=== PATIENT | female | born 1950 | race Caucasian/White ===

== ENCOUNTER 2016-11-26 18:21 | Inpatient (IN) | payer BC, MEDICAID ==
[~2016-11-26] VITALS: Ht 157.5 cm; Wt 76.2 kg
[~2016-11-26 18:21] MED LIST: AMLO10TA4 PO; DIPH50CA PO; FLUT50DI IH; HYDR-2666 PO; LOPE1LIQ7 PO
[2016-11-26 19:23] LABS: BASO % 1 % (0-3); EOS % 1 % (0-3); HEMATOCRIT 32.5 % (36.0-47.0); HEMOGLOBIN 9.9 g/dL (12.0-15.5); LYMPH % 16 % (24-48); MEAN CORPUSCULAR HEMOGLOBIN 28 pg (25-35); MEAN CORPUSCULAR HGB CONC 31 g/dL (31-37); MEAN CORPUSCULAR VOLUME 92 fL (79-100); MONO % 9 % (0-9); NEUT % 73 % (31-73); PLATELET COUNT 129 x10^3/uL (140-400); RED BLOOD COUNT 3.55 x10^6/uL (3.50-5.40); RED CELL DISTRIBUTION WIDTH 16.1 % (11.5-14.5); WHITE BLOOD COUNT 6.4 x10^3/uL (4.0-11.0)
--- NOTE | 2016-11-26 19:24 | PHYS DOC ---
Past Medical History Past Medical History: Cancer, Hypertension, Other Additional Past Medical Histor: intestinal cancer,BLOOD TRANSFUSION Past Surgical History: Appendectomy, Hysterectomy, Other Additional Past Surgical Histo: "intestines removed" Alcohol Use: Occasionally Drug Use: None Adult General Chief Complaint Chief Complaint: ALTERED MENTAL STATUS HPI HPI Patient is a 66 year old female who presents with complaint of generalized weakness. The patient was brought to the emergency department by her daughter who states that over the past week the patient has been seemingly more and more weak and fatigued. She states that starting last night the patient was displaying confusion and difficulty with memory. She brought the patient to her home last night and states that throughout the day today the patient has continued to have confusion and weakness. The patient admits that she does feel weakness but denies any other complaints at this time. Patient has history of colon cancer and has had multiple abdominal surgeries and partial colectomy for the family. Patient has not had any fevers, vomiting, and patient denies any urinary symptoms currently. Patient patient's daughter deny any focal weakness. Review of Systems Review of Systems Constitutional: Generalized weakness, denies fevers [] Eyes: Denies change in visual acuity, redness, or eye pain [] HENT: Denies nasal congestion or sore throat [] Respiratory: Denies cough or shortness of breath [] Cardiovascular: Denies chest pain or edema [] GI: Denies abdominal pain, nausea, vomiting, bloody stools or diarrhea [] : Denies dysuria or hematuria [] Musculoskeletal: Denies back pain or joint pain [] Integument: Denies rash or skin lesions [] Neurologic: Confusion, denies headache, focal weakness or sensory changes [] Current Medications Current Medications Current Medications Medications (Trade) Dose Ordered Sig/Rebecca Start Time Stop Time Status Last Admin Dose Admin Sodium Chloride (Iv Sodium Chloride 0.9% 1000ml Bag) 1,000 ml @ 100 mls/hr 1X ONCE 11/26/16 19:30 11/27/16 05:29 11/26/16 19:38 100 MLS/HR Allergies Allergies Allergies Coded Allergies Type Severity Reaction Last Updated Verified Penicillins Allergy Intermediate rash 09/05/13 Yes Physical Exam Physical Exam Constitutional: Alert, afebrile, no acute distress. [] HENT: Normocephalic, atraumatic, bilateral external ears normal, oropharynx moist, no oral exudates, nose normal. [] Eyes: PERRLA, EOMI, conjunctiva normal, no discharge. [] Neck: Normal range of motion, no tenderness, supple, no stridor. [] Cardiovascular:Heart rate regular rhythm, no murmur [] Lungs & Thorax: Bilateral breath sounds clear to auscultation [] Abdomen: Bowel sounds normal, soft, ventral incisional hernia present that is soft and reducible, no pulsatile masses. [] Skin: Warm, dry, no erythema, no rash. [] Back: No tenderness, no CVA tenderness. [] Extremities: No tenderness, no cyanosis, no clubbing, ROM intact, no edema. [] Neurologic: Alert, oriented to self, bilateral 4 out of 5 muscle strength in upper and lower extremities, normal sensory function, no focal deficits noted. [ ] Current Patient Data Vital Signs Vital Signs Date Time Temp Pulse Resp B/P Pulse Ox O2 Delivery O2 Flow Rate FiO2 11/26/16 18:35 98.1 69 20 138/68 97 Room Air 98.1 Lab Values Laboratory Tests Test 11/26/16 18:56 White Blood Count 6.4x10^3/uL (4.0-11.0) Red Blood Count 3.55x10^6/uL (3.50-5.40) Hemoglobin 9.9g/dL (12.0-15.5) L Hematocrit 32.5% (36.0-47.0) L Mean Corpuscular Volume 92fL (79-100) Mean Corpuscular Hemoglobin 28pg (25-35) Mean Corpuscular Hemoglobin Concent 31g/dL (31-37) Red Cell Distribution Width 16.1% (11.5-14.5) H Platelet Count 129x10^3/uL (140-400) L Neutrophils (%) (Auto) 73% (31-73) Lymphocytes (%) (Auto) 16% (24-48) L Monocytes (%) (Auto) 9% (0-9) Eosinophils (%) (Auto) 1% (0-3) Basophils (%) (Auto) 1% (0-3) Neutrophils # (Auto) 4.7x10^3uL (1.8-7.7) Lymphocytes # (Auto) 1.0x10^3/uL (1.0-4.8) Monocytes # (Auto) 0.6x10^3/uL (0.0-1.1) Eosinophils # (Auto) 0.1x10^3/uL (0.0-0.7) Basophils # (Auto) 0.0x10^3/uL (0.0-0.2) Sodium Level 146mmol/L (136-145) H Potassium Level 4.5mmol/L (3.5-5.1) Chloride Level 116mmol/L (98-107) H Carbon Dioxide Level 10mmol/L (21-32) *L Anion Gap 20 (6-14) H Blood Urea Nitrogen 87mg/dL (7-20) H Creatinine 4.5mg/dL (0.6-1.0) H Estimated GFR (Cockcroft-Gault) 9.7 BUN/Creatinine Ratio 19 (6-20) Glucose Level 113mg/dL (70-99) H Calcium Level 7.8mg/dL (8.5-10.1) L Magnesium Level 1.3mg/dL (1.8-2.4) L Total Bilirubin 0.2mg/dL (0.2-1.0) Aspartate Amino Transferase (AST) 12U/L (15-37) L Alanine Aminotransferase (ALT) 15U/L (14-59) Alkaline Phosphatase 129U/L (46-116) H Troponin I Quantitative < 0.017ng/mL (0.000-0.055) TZ-Die-C-Type Natriuretic Peptide 3110pg/mL (0-124) H Total Protein 7.0g/dL (6.4-8.2) Albumin 3.4g/dL (3.4-5.0) Albumin/Globulin Ratio 0.9 (1.0-1.7) L Laboratory Tests 11/26/16 18:56 Laboratory Tests 11/26/16 18:56 EKG EKG Interpreted by me: Heart rate 72, sinus rhythm, normal intervals, normal axis, no acute ST/T-wave abnormalities present [] Radiology/Procedures Radiology/Procedures One view AP chest x-ray interpreted by me: No infiltrate, no effusions, normal cardiac silhouette [] Course & Med Decision Making Course & Med Decision Making Pertinent Labs and Imaging studies reviewed. (See chart for details) Patient found to be in profound renal failure based off of her workup. This is likely contributing to the patient's generalized weakness and confusion. Patient started on IV fluids. Patient will be admitted for further treatment. I spoke with Dr. Hernandez who accepted care patient in hospital. A consult was placed to Dr. Ortiz of nephrology to follow with patient in hospital. Dragon Disclaimer Dragon Disclaimer This electronic medical record was generated, in whole or in part, using a voice recognition dictation system. Departure Departure Impression: Primary Impression: Metabolic encephalopathy Additional Impressions: Acute on chronic renal failure Normocytic anemia Hypomagnesemia Hypocalcemia Disposition: ADMITTED INPATIENT Admitting Physician: Other Condition: GUARDED Referrals: NELLI ETIENNE MD (PCP) Problem Qualifiers BRENDA HART MD Nov 26, 2016 19:23
[2016-11-26] MEDS ORDERED: IV NORMAL SALINE 1000ML BAG 1,000 ML IV ONE (19:30)
[2016-11-26 19:41] LABS: ALBUMIN 3.4 g/dL (3.4-5.0); ALBUMIN/GLOBULIN RATIO 0.9 (1.0-1.7); CALCIUM 7.8 mg/dL (8.5-10.1); CREATININE 4.5 mg/dL (0.6-1.0); GFR 9.7; MAGNESIUM 1.3 mg/dL (1.8-2.4); POTASSIUM 4.5 mmol/L (3.5-5.1); TOTAL BILIRUBIN 0.2 mg/dL (0.2-1.0)
[2016-11-26] MEDS ORDERED: ACETAMINOPHEN 325 MG TABLET. PO PRN (20:45)
[2016-11-26] MEDS ORDERED: ONDANSETRON PF 4 MG/2 ML VIAL. IV PRN (20:45)
--- NOTE | 2016-11-26 20:54 | ACF ---
Admission Forms Criteria MENTAL STATUS CHANGE Clinical Indications for Inpatient Care (Place 'X' for any and all applicable criteria): Ongoing inpatient care may be needed for 1 or more of the following(1)(2)(3)(5)( 6): [X]I. Suspected serious etiology (eg, medical disorder, HEAT TREAT PULLER event) of altered mental status [ ]II. Danger to self or others not manageable at lower level of care [ ]III. Grave disability (eg, inability to perform self care necessary at lower level of care) [ ]IV. Agitation or inappropriate behavior interfering with care for primary condition (eg, attempting to discontinue lines or drains prematurely, unable to cooperate with respiratory care) [ ]V. Delirium [A] [D][E] as described by 1 or more of the following(26): [ ]a) Delirium due to alcohol or sedative [F] withdrawal [ ]b) Delirium of uncertain etiology that has not responded to appropriate empiric treatment [ ]c) Delirium that prevents performance of a life-sustaining function (eg, feeding or hydrating oneself) [ ]. General contraindications and/or Inappropriate clinical situations for Observational Care in patients with Mental Status Change, when ANY ONE of the following is required: [ ]a) Prediction of prolongation of LOS based on ANY ONE of the following may be considered as a contraindication for observational care 2, 3, 4, 5, 6, 7, 8, 9, 10, 11 [ ]i) Age > 65 yrs. [ ]ii) Patient arriving by ambulance [ ]iii) Patient with high acuity [ ]iv) Patient requiring vital sign monitoring [ ]v) Patient on IV medication [ ]b) Systolic blood pressures greater than or equal to 180mmHg 3, 12 [ ]c) Patient with altered mental status including delirium and other alteration of consciousness, (3) [ ]d) Patient whose discharge disposition will be to a fci home or rehabilitation home should not be managed in Emergency Department Observation Unit. CMS rule requires 3 days hospital stay before such placement.3,13 [ ]e) Patient with failure to thrive due to broad array of etiologies 3,16,17 [ ]f) Inability to ambulate 3,14 Extended stay beyond goal length of stay for the primary condition may be needed until ALL of the following are present(3)(5): [ ]a) Underlying medical etiology of mental status change is absent, or has been established and adequately treated [ ]b) Danger to self or others is absent or manageable at lower level of care. [ ]c) Behavior crisis management, including physical or chemical restraints, is not required or available at lower level of car [ ]d) Substance or alcohol withdrawal is absent or manageable at lower level of care. [ ]e) Behavioral symptoms (eg, agitation, somnolence, inappropriate behavior) are absent, or are manageable at lower level of care. The original [facility] [employer] content created by [facility] [employer] has been revised. The portions of the content which have been revised are identified through the use of italic text or in bold, and [facility] has neither reviewed nor approved the modified material. All other unmodified content is copyright [facility]. Please see references footnoted in the original [facility] edition 2016 Admission Criteria Met?: Yes ZAHIRA MCMANUS Nov 26, 2016 20:54
[2016-11-26 21:41] VITALS: BP 147/61
[2016-11-26] MEDS: IV NORMAL SALINE 1000ML BAG 1,000 ML IV SCH (22:52)
[2016-11-26 22:58] VITALS: BP 126/64
[2016-11-26 23:52] LABS: BILIRUBIN,URINE NEGATIVE (NEG); GLUCOSE,URINE NEGATIVE (NEG); NITRITE,URINE NEGATIVE (NEG); PH,URINE 5.5; PROTEIN,URINE 30 mg/dL (NEG-TRACE); UROBILINOGEN,URINE 0.2 mg/dL (0.2 mg/dL)
[2016-11-26 23:58] LABS: BACTERIA,URINE MANY /HPF (0-FEW); SQUAMOUS EPITHELIAL CELL,UR FEW /LPF; WBC,URINE TNTC /HPF (0-4)
[2016-11-27 03:00] VITALS: BP 112/63
[2016-11-27 04:52] LABS: BASO % 1 % (0-3); EOS % 2 % (0-3); HEMATOCRIT 31.5 % (36.0-47.0); HEMOGLOBIN 9.7 g/dL (12.0-15.5); LYMPH # 1.2 x10^3/uL (1.0-4.8); LYMPH % 17 % (24-48); MEAN CORPUSCULAR HEMOGLOBIN 28 pg (25-35); MEAN CORPUSCULAR HGB CONC 31 g/dL (31-37); MEAN CORPUSCULAR VOLUME 91 fL (79-100); MONO % 7 % (0-9); NEUT % 74 % (31-73); PLATELET COUNT 127 x10^3/uL (140-400); RED BLOOD COUNT 3.46 x10^6/uL (3.50-5.40); RED CELL DISTRIBUTION WIDTH 15.5 % (11.5-14.5)
[2016-11-27] MEDS: IV NORMAL SALINE 1000ML BAG 1,000 ML IV SCH (04:53)
[2016-11-27 05:09] LABS: CALCIUM 7.8 mg/dL (8.5-10.1); CREATININE 4.1 mg/dL (0.6-1.0); GFR 10.9; POTASSIUM 4.1 mmol/L (3.5-5.1)
--- NOTE | 2016-11-27 06:24 | EKG ---
[facility] [address] [place] [address] Test Date: 2016-11-26 Test Time: 18:43:22 Pat Name: WILLOW HERR Department: Room: 574 1 Gender: F Lens Blocker: : 1950 Requested By: BRENDA HART Order Number: [id number] Reading MD: Kandace Camp Measurements Intervals [place] Rate: 72 P: 90 IN: 176 QRS: 8 QRSD: 90 T: 39 QT: 382 QTc: 420 Interpretive Statements SINUS RHYTHM NO SPECIFIC ECG ABNORMALITIES RI6.01 Compared to ECG 08/06/2016 16:05:22 No significant changes Electronically Signed On 12-02-2016 12:35:59 CDT by Kandace Camp
[2016-11-27] MEDS ORDERED: SODIUM BICARBONATE VIAL 100 MEQ in IV DEXTROSE 5% 1,000 ML IV SCH (06:30)
[2016-11-27] MEDS: SODIUM BICARBONATE VIAL 100 MEQ in IV DEXTROSE 5% 1,000 ML IV SCH ×3 (06:42→23:56)
[2016-11-27 07:00] VITALS: BP 117/62
--- NOTE | 2016-11-27 08:19 | RAD ---
Portable chest, 11/26/2016: History: Altered mental status, weakness Comparison is made to a study from 08/06/2016. The heart is mildly enlarged. There is calcific plaquing and tortuosity of the thoracic aorta. The pulmonary vascularity is normal. No pulmonary infiltrates are seen. There is no evidence of pleural fluid. IMPRESSION: 1. Mild cardiomegaly and aortic atherosclerosis. 2. No acute abnormality is detected.
--- NOTE | 2016-11-27 09:56 | PDOC1 ---
History and Physical Date of Admission Date of Admission DATE: 11/27/16 TIME: 09:50 Identification/Chief Complaint Chief Complaint generalized weakness Problems: Source Source: Caregiver, Chart review, Patient History of Present Illness History of Present Illness 66 y.o AA female, rather poor historian, came from own home, comes in bec of gen weakness, chronic but worse. LIves alone at home with no assistive device, labs at ER show marked ARF with crea 4 plus, DOes not see renal as OP but claims PCP (she cant recall name) follows it. Claims to feel better, uses depends at home, claims no incontinence but smells of urine in the room/bed. CLaims still good UO. Bicarb 10- on admit, started on dextrose with bicarb at 125cc/hr, bicarb 8 this morning. VS otherwise, stable, PE WNL Past Medical History Cardiovascular: HTN Past Surgical History Past Surgical History: Cholecystectomy, Hysterectomy Family History Family History: No Significant Social History Smoke: No ALCOHOL: none Drugs: None Current Problem List Problem List Problems Medical Problems: (1) Acute on chronic renal failure Status: Acute (2) Hypocalcemia Status: Acute (3) Hypomagnesemia Status: Acute (4) Metabolic encephalopathy Status: Acute (5) Normocytic anemia Status: Acute Problems: Current Medications Current Medications Current Medications Sodium Chloride (Iv Sodium Chloride 0.9% 1000ml Bag) 1,000 ml @ 100 mls/hr 1X ONCE IV Last administered on 11/26/16 19:38; Start 11/26/16 at 19:30; Stop at 05:29; Status DC Ondansetron HCl 4 mg 4 mg PRN Q8HRS PRN IV NAUSEA/VOMITING; Start 11/26/16 at 20:45; Stop 11/27/16 at 08:29; Status DC Sodium Chloride (Iv Sodium Chloride 0.9% 1000ml Bag) 1,000 ml @ 125 mls/hr Q8H IV Last administered on 11/27/16 04:53; Start 11/26/16 at 20:31; Stop at 06:39; Status DC Acetaminophen 650 mg 650 mg PRN Q4HRS PRN PO FEVER; Start 11/26/16 at 20:45; Stop 11/27/16 at 20:44 Sodium Bicarbonate 100 meq/Dextrose 1,100 ml @ 125 mls/hr Q8H48M IV Last administered on 11/27/16t 06:25; Start 11/27/16 at 06:30; Stop 11/27/16 at 06:35 ; Status DC Sodium Bicarbonate/ Dextrose 1,100 ml @ 125 mls/hr Q8H48M IV ; Start 11/27/16 at 07:00 Ondansetron HCl (Zofran) 4 mg PRN Q6HRS PRN IV NAUSEA/VOMITING; Start 11/27/16 at 08:28 Amlodipine Besylate (Norvasc) 10 mg DAILY08 PO ; Start 11/28/16 at 08:00 Fluticasone Propionate (Flonase) 2 spray DAILY NS ; Start 11/27/16 at 09:00 Loperamide HCl (Imodium) 2 mg DAILY08 PO ; Start 11/27/16 at 08:45 Active Scripts Active Reported Flovent 50MCG Diskus (Fluticasone Propionate) 50 Mcg Disk.w.dev 50 Mcg IH BID Imodium A-D (Loperamide Hcl) 1 Mg/7.5 Ml Liquid 2 Mg PO DAILY08 Norvasc (Amlodipine Besylate) 10 Mg Tablet 10 Mg PO DAILY08 Allergies Allergies: Coded Allergies: Penicillins (Verified Allergy, Intermediate, rash, 09/05/13) ROS General: YES: Fatigue, Malaise PSYCHOLOGICAL ROS: No: Anxiety, Behavioral Disorder, Concentration difficultie , Decreased libido, Depression, Disorientation, Hallucinations, Hostility, Irritablity, Memory difficulties, Mood Swings, Obsessive thoughts, Other, Physical abuse, Sexual abuse, Sleep disturbances, Suicidal ideation Eyes: No Blurry vision, No Decreased vision, No Double vision, No Dry eyes, No Excessive tearing, No Eye Pain, No Itchy Eyes, No Loss of vision, No Other, No Photophobia, No Scotomata, No Uses contacts, No Uses glasses HEENT: No: Epistaxis, Heacaches, Hearing change, Nasal congestion, Nasal discharge, Oral lesions, Other, Sinus pain, Sneezing, Snoring, Sore Throat, Tinnitus, Vertigo, Visual Changes, Vocal changes ALLERGY AND IMMUNOLOGY: No: Hives, Insect Bite Sensitivity, Itchy/Watery Eyes, Nasal Congestion, Other, Post Nasal Drip, Seasonal Allergies Hematological and Lymphatic: No: Bleeding Problems, Blood Clots, Blood Transfusions, Brusing, Night Sweats, Other, Pallor, Swollen Lymph Nodes ENDOCRINE: No: Breast Changes, Galactorrhea, Hair Pattern Changes, Hot Flashes , Malaise/lethargy, Mood Swings, Other, Palpitations, Polydipsia/polyuria, Skin Changes, Temperature Intolerance, Unexpected Weight Changes Breast: No New/Changing Breast Lumps, No Nipple changes, No Nipple discharge, No Other Respiratory: No: Cough, Hemoptysis, Orthopnea, Other, Pleuritic Pain, SOB with excertion, Shortness of breath, Sputum Changes, Stridor, Tachypnea, Wheezing Cardiovascular: No Chest Pain, No Edema, No Lt Headedness, No Orthopnea, No Other, No Palpitations, No Paroxysmal Noc. Dyspnea Gastrointestinal: No Abdominal Pain, No Constipation, No Diarrhea, No Hematochezia, No Melena, No Nausea, No Other, No Vomiting Genitourinary: YES Other (urinary incontinence) Musculoskeletal: No Gait Disturbance, No Joint Pain, No Joint Stiffness, No Joint Swelling, No Muscle Pain, No Muscular Weakness, No Other, No Pain In:, No Swelling In: Neurological: No Behavorial Changes, No Bowel/Bladder ControlChng, No Confusion , No Dizziness, No Gait Disturbance, No Headaches, No Impaired Coord/balance, No Memory Loss, No Numbness/Tingling, No Other, No Seizures, No Speech Problems , No Tremors, No Visual Changes, No Weakness Skin: No Acne, No Dry Skin, No Eczema, No Hair Changes, No Lumps, No Mole Changes, No Mottling, No Nail Changes, No Other, No Pruritus, No Rash, No Skin Lesion Changes Physical Exam General: Alert, Oriented X3, Cooperative, No acute distress HEENT: Atraumatic, PERRLA, EOMI Lungs: Clear to auscultation Heart: S1S2, RRR, no thrills, no rubs, no gallops Cardiovascular: S1, S2 Breasts: Normal, Rt breast nml w/o mass, Lt breast nml w/o mass, Nipples normal Abdomen: Normal bowel sounds, Soft, No tenderness, No hepatosplenomegaly, No masses Rectal Exam: not examined Extremities: No clubbing, No cyanosis, No edema, Normal pulses, No tenderness/ swelling Skin: No rashes, No breakdown, No significant lesion Neuro: Normal gait, Normal speech, Strength at 5/5 X4 ext, Normal tone, Sensation intact, Cranial nerves 3-12 NL, Reflexes 2+ Psych/Mental Status: Mental status NL, Mood NL Vitals Vitals Vital Signs Date Time Temp Pulse Resp B/P Pulse Ox O2 Delivery O2 Flow Rate FiO2 11/27/16 07:00 97.8 63 16 117/62 100 Room Air 97.8 Labs Labs Laboratory Tests Test 11/26/16 18:38 11/26/16 18:56 11/26/16 23:40 11/27/16 03:40 Glucose (Fingerstick) 86mg/dL (70-99) White Blood Count 6.4x10^3/uL (4.0-11.0) 7.0x10^3/uL (4.0-11.0) Red Blood Count 3.55x10^6/uL (3.50-5.40) 3.46x10^6/uL (3.50-5.40) Hemoglobin 9.9g/dL (12.0-15.5) 9.7g/dL (12.0-15.5) Hematocrit 32.5% (36.0-47.0) 31.5% (36.0-47.0) Mean Corpuscular Volume 92fL (79-100) 91fL (79-100) Mean Corpuscular Hemoglobin 28pg (25-35) 28pg (25-35) Mean Corpuscular Hemoglobin Concent 31g/dL (31-37) 31g/dL (31-37) Red Cell Distribution Width 16.1% (11.5-14.5) 15.5% (11.5-14.5) Platelet Count 129x10^3/uL (140-400) 127x10^3/uL (140-400) Neutrophils (%) (Auto) 73% (31-73) 74% (31-73) Lymphocytes (%) (Auto) 16% (24-48) 17% (24-48) Monocytes (%) (Auto) 9% (0-9) 7% (0-9) Eosinophils (%) (Auto) 1% (0-3) 2% (0-3) Basophils (%) (Auto) 1% (0-3) 1% (0-3) Neutrophils # (Auto) 4.7x10^3uL (1.8-7.7) 5.2x10^3uL (1.8-7.7) Lymphocytes # (Auto) 1.0x10^3/uL (1.0-4.8) 1.2x10^3/uL (1.0-4.8) Monocytes # (Auto) 0.6x10^3/uL (0.0-1.1) 0.5x10^3/uL (0.0-1.1) Eosinophils # (Auto) 0.1x10^3/uL (0.0-0.7) 0.1x10^3/uL (0.0-0.7) Basophils # (Auto) 0.0x10^3/uL (0.0-0.2) 0.0x10^3/uL (0.0-0.2) Sodium Level 146mmol/L (136-145) 148mmol/L (136-145) Potassium Level 4.5mmol/L (3.5-5.1) 4.1mmol/L (3.5-5.1) Chloride Level 116mmol/L (98-107) 119mmol/L (98-107) Carbon Dioxide Level 10mmol/L (21-32) 8mmol/L (21-32) Anion Gap 20 (6-14) 21 (6-14) Blood Urea Nitrogen 87mg/dL (7-20) 85mg/dL (7-20) Creatinine 4.5mg/dL (0.6-1.0) 4.1mg/dL (0.6-1.0) Estimated GFR (Cockcroft-Gault) 9.7 10.9 BUN/Creatinine Ratio 19 (6-20) Glucose Level 113mg/dL (70-99) 80mg/dL (70-99) Calcium Level 7.8mg/dL (8.5-10.1) 7.8mg/dL (8.5-10.1) Magnesium Level 1.3mg/dL (1.8-2.4) Total Bilirubin 0.2mg/dL (0.2-1.0) Aspartate Amino Transf (AST/SGOT) 12U/L (15-37) Alanine Aminotransferase (ALT/SGPT) 15U/L (14-59) Alkaline Phosphatase 129U/L (46-116) Troponin I Quantitative < 0.017ng/mL (0.000-0.055) YQ-Rsp-X-Type Natriuretic Peptide 3110pg/mL (0-124) Total Protein 7.0g/dL (6.4-8.2) Albumin 3.4g/dL (3.4-5.0) Albumin/Globulin Ratio 0.9 (1.0-1.7) Urine Collection Type Unknown Urine Color Yellow Urine Clarity Cloudy Urine pH 5.5 Urine Specific [place] 1.010 Urine Protein 30mg/dL (NEG-TRACE) Urine Glucose (UA) Negativemg/dL (NEG) Urine Ketones (Stick) Negativemg/dL (NEG) Urine Blood Large (NEG) Urine Nitrite Negative (NEG) Urine Bilirubin Negative (NEG) Urine Urobilinogen Dipstick 0.2mg/dL (0.2 mg/dL) Urine Leukocyte Esterase Large (NEG) Urine RBC 11-20/HPF (0-2) Urine WBC Tntc/HPF (0-4) Urine Squamous Epithelial Cells Few/LPF Urine Bacteria Many/HPF (0-FEW) Urine Mucus Slight/LPF Laboratory Tests Test 11/26/16 18:38 11/26/16 18:56 11/26/16 23:40 11/27/16 03:40 Glucose (Fingerstick) 86mg/dL (70-99) White Blood Count 6.4x10^3/uL (4.0-11.0) 7.0x10^3/uL (4.0-11.0) Red Blood Count 3.55x10^6/uL (3.50-5.40) 3.46x10^6/uL (3.50-5.40) Hemoglobin 9.9g/dL (12.0-15.5) 9.7g/dL (12.0-15.5) Hematocrit 32.5% (36.0-47.0) 31.5% (36.0-47.0) Mean Corpuscular Volume 92fL (79-100) 91fL (79-100) Mean Corpuscular Hemoglobin 28pg (25-35) 28pg (25-35) Mean Corpuscular Hemoglobin Concent 31g/dL (31-37) 31g/dL (31-37) Red Cell Distribution Width 16.1% (11.5-14.5) 15.5% (11.5-14.5) Platelet Count 129x10^3/uL (140-400) 127x10^3/uL (140-400) Neutrophils (%) (Auto) 73% (31-73) 74% (31-73) Lymphocytes (%) (Auto) 16% (24-48) 17% (24-48) Monocytes (%) (Auto) 9% (0-9) 7% (0-9) Eosinophils (%) (Auto) 1% (0-3) 2% (0-3) Basophils (%) (Auto) 1% (0-3) 1% (0-3) Neutrophils # (Auto) 4.7x10^3uL (1.8-7.7) 5.2x10^3uL (1.8-7.7) Lymphocytes # (Auto) 1.0x10^3/uL (1.0-4.8) 1.2x10^3/uL (1.0-4.8) Monocytes # (Auto) 0.6x10^3/uL (0.0-1.1) 0.5x10^3/uL (0.0-1.1) Eosinophils # (Auto) 0.1x10^3/uL (0.0-0.7) 0.1x10^3/uL (0.0-0.7) Basophils # (Auto) 0.0x10^3/uL (0.0-0.2) 0.0x10^3/uL (0.0-0.2) Sodium Level 146mmol/L (136-145) 148mmol/L (136-145) Potassium Level 4.5mmol/L (3.5-5.1) 4.1mmol/L (3.5-5.1) Chloride Level 116mmol/L (98-107) 119mmol/L (98-107) Carbon Dioxide Level 10mmol/L (21-32) 8mmol/L (21-32) Anion Gap 20 (6-14) 21 (6-14) Blood Urea Nitrogen 87mg/dL (7-20) 85mg/dL (7-20) Creatinine 4.5mg/dL (0.6-1.0) 4.1mg/dL (0.6-1.0) Estimated GFR (Cockcroft-Gault) 9.7 10.9 BUN/Creatinine Ratio 19 (6-20) Glucose Level 113mg/dL (70-99) 80mg/dL (70-99) Calcium Level 7.8mg/dL (8.5-10.1) 7.8mg/dL (8.5-10.1) Magnesium Level 1.3mg/dL (1.8-2.4) Total Bilirubin 0.2mg/dL (0.2-1.0) Aspartate Amino Transf (AST/SGOT) 12U/L (15-37) Alanine Aminotransferase (ALT/SGPT) 15U/L (14-59) Alkaline Phosphatase 129U/L (46-116) Troponin I Quantitative < 0.017ng/mL (0.000-0.055) ST-Epn-P-Type Natriuretic Peptide 3110pg/mL (0-124) Total Protein 7.0g/dL (6.4-8.2) Albumin 3.4g/dL (3.4-5.0) Albumin/Globulin Ratio 0.9 (1.0-1.7) Urine Collection Type Unknown Urine Color Yellow Urine Clarity Cloudy Urine pH 5.5 Urine Specific [place] 1.010 Urine Protein 30mg/dL (NEG-TRACE) Urine Glucose (UA) Negativemg/dL (NEG) Urine Ketones (Stick) Negativemg/dL (NEG) Urine Blood Large (NEG) Urine Nitrite Negative (NEG) Urine Bilirubin Negative (NEG) Urine Urobilinogen Dipstick 0.2mg/dL (0.2 mg/dL) Urine Leukocyte Esterase Large (NEG) Urine RBC 11-20/HPF (0-2) Urine WBC Tntc/HPF (0-4) Urine Squamous Epithelial Cells Few/LPF Urine Bacteria Many/HPF (0-FEW) Urine Mucus Slight/LPF VTE Prophylaxis Ordered VTE Prophylaxis Devices: Yes VTE Pharmacological Prophylaxi: Yes Assessment/Plan Assessment/Plan 1. ARF on CKD, possibly stage 4-5 based on GFR 2. ANemia of CKD 3. HTN, controlled 4. GAP metabolic acidosis 5. Urinary incontinence 6. Gen weakness sec to above PLAN: Admit tele Renal consult BIcarb gtt Renal panel daily UA reviewed, CLose I and O MIght need renal sono if not yet done recently PT/OT NO nephrotoxins Dw pt and RN at bedside RAKESH MATA MD Nov 27, 2016 09:56
[2016-11-27] MEDS: FLUTICASONE 50MCG/NASAL SPRAY 16GM BOTTLE. NS SCH (10:00)
[2016-11-27 11:00] VITALS: BP 121/66
--- NOTE | 2016-11-27 11:27 | PDOC2 ---
CONSULT Date of Consult Date of Consult DATE: 11/27/16 TIME: 11:21 Reason for Consult Reason for Consult: KEYONNA/ ? CKD III Referring Physician Referring Physician: Dr Bob Source Source: Chart review, Patient History of Present Illness Reason for Visit: as dictated Past Medical History Cardiovascular: HTN Past Surgical History Past Surgical History: Cholecystectomy, Hysterectomy Family History Family History: No Significant Social History No ALCOHOL: none Drugs: None Current Problem List Problem List Problems Medical Problems: (1) Acute on chronic renal failure Status: Acute (2) Hypocalcemia Status: Acute (3) Hypomagnesemia Status: Acute (4) Metabolic encephalopathy Status: Acute (5) Normocytic anemia Status: Acute Current Medications Current Medications Current Medications Sodium Chloride (Iv Sodium Chloride 0.9% 1000ml Bag) 1,000 ml @ 100 mls/hr 1X ONCE IV Last administered on 11/26/16 19:38; Start 11/26/16 at 19:30; Stop at 05:29; Status DC Ondansetron HCl 4 mg 4 mg PRN Q8HRS PRN IV NAUSEA/VOMITING; Start 11/26/16 at 20:45; Stop 11/27/16 at 08:29; Status DC Sodium Chloride (Iv Sodium Chloride 0.9% 1000ml Bag) 1,000 ml @ 125 mls/hr Q8H IV Last administered on 11/27/16 04:53; Start 11/26/16 at 20:31; Stop at 06:39; Status DC Acetaminophen 650 mg 650 mg PRN Q4HRS PRN PO FEVER; Start 11/26/16 at 20:45; Stop 11/27/16 at 20:44 Sodium Bicarbonate 100 meq/Dextrose 1,100 ml @ 125 mls/hr Q8H48M IV Last administered on 11/27/16 06:25; Start 11/27/16 at 06:30; Stop 11/27/16 at 06:35 ; Status DC Sodium Bicarbonate/ Dextrose 1,100 ml @ 125 mls/hr Q8H48M IV ; Start 11/27/16 at 07:00 Ondansetron HCl (Zofran) 4 mg PRN Q6HRS PRN IV NAUSEA/VOMITING; Start 11/27/16 at 08:28 Amlodipine Besylate (Norvasc) 10 mg DAILY08 PO ; Start 11/28/16 at 08:00 Fluticasone Propionate (Flonase) 2 spray DAILY NS ; Start 11/27/16 at 09:00 Loperamide HCl (Imodium) 2 mg DAILY08 PO ; Start 11/27/16 at 08:45 Active Scripts Active Reported Flovent 50MCG Diskus (Fluticasone Propionate) 50 Mcg Disk.w.dev 50 Mcg IH BID Imodium A-D (Loperamide Hcl) 1 Mg/7.5 Ml Liquid 2 Mg PO DAILY08 Norvasc (Amlodipine Besylate) 10 Mg Tablet 10 Mg PO DAILY08 Allergies Allergies: Coded Allergies: Penicillins (Verified Allergy, Intermediate, rash, 09/05/13) ROS Review of System GEN: no Fevers no Chills + Gen Weakness EYES: no new Visual Complaints ENT: no EN Drainage no Hearing deficiets CVS: no Orthopnea no CP RESP: no SOB no WILEY GI: min Nausea no Vomiting Ch Diarrhea + Abd pain : no Dysuria no Urgency Dec Uo HEME: no easy bruising no Palp Ly Nodes NEURO no Focal Weakness no Sz PSYCH: no Suicidal Ideation no Depression SKIN: no Rashes ENDO: no Polyuria or Polydipsia no Hot/Cold Intolerance MU SK: ch Arthraigia no Myalgia Physical Exam Physical Exam General Appearance: Awake Alert Oriented x 2 In no obvoius Distress Eyes: VIsion Unchanged Conjunctiva Normal EN: No EN Drainage Mucous Memb. dryish Neck: no JVD min JVP Supple no Thyromegaly CVS: S1 S2 ? Murmur No Gallop No Rub no Edema Resp: no Rales no Rhonchi no Acc. Muscle use GI: BS hypoactive NO Bruit + Tender Non Distended : no CVA tenderness; no Suprapubic Tenderness SKIN: novisible Rashes Breast Exam deferred Mu.Sk: Adequate ROM no Muscle Atrophy Heme: Unable to palpate Obvious LAD no palp Splenomegaly NEURO: Good Strength and Tone Cranial Nerves II - XII grossly intact; ? hyperesthesia overlying antoine area Psych: ? Depressed vs Ch Ill appearing; no Active hallucination Vital Signs Vital Signs Date Time Temp Pulse Resp B/P Pulse Ox O2 Delivery O2 Flow Rate FiO2 11/27/16 07:00 97.8 63 16 117/62 100 Room Air 97.8 Assessment & Plan ARF/ ? ATN: (possible etios incldue VMN, NSAIDs and ATN) R/o Obst due to stones. Dialysis as below (for WAG met acidosis) F 180 NR 3.0 Hrs 3 K 2.5 Ca 140 Na 40 HC03 Qb 350 + Qd 500+ Heparin 0 Units Uf 0 Kgs or to dry weight as tolerated May give 25-50 gms of 25% Albumin if needed to maintain Hemodynamic stability Treatment plan reviewed and discussed with seat scooper machine and daughter at bedside ? CKD III at baseline : Based on Us report and Previous Creat of 1.8-2.3 in the past (07/2016) Proteinuria - Quantitate when UA is avail Microscopic Hematuria (min RBCs) await CK, ? need for Urine Myoglobin, Has h/o stones sev WAGMet Acidosis - cehck Lactate; Ct IVF with Bicarb; HD x 1 -2 to correct ? Source Anemia: chekc [place]; may need Epogen Transfuse with next HD as needed. HTN: Current BP meds reviewed. See orders for changes. HypOcal - w/up as ordered, presumablyd ue to Low Mag Low Mag - IVF prn Mag as ordered Discussed Plan of Care and prognosis etc. at length with family. Labs Labs Laboratory Tests Test 11/26/16 18:38 11/26/16 18:56 11/26/16 23:40 11/27/16 03:40 Glucose (Fingerstick) 86mg/dL (70-99) White Blood Count 6.4x10^3/uL (4.0-11.0) 7.0x10^3/uL (4.0-11.0) Red Blood Count 3.55x10^6/uL (3.50-5.40) 3.46x10^6/uL (3.50-5.40) Hemoglobin 9.9g/dL (12.0-15.5) 9.7g/dL (12.0-15.5) Hematocrit 32.5% (36.0-47.0) 31.5% (36.0-47.0) Mean Corpuscular Volume 92fL (79-100) 91fL (79-100) Mean Corpuscular Hemoglobin 28pg (25-35) 28pg (25-35) Mean Corpuscular Hemoglobin Concent 31g/dL (31-37) 31g/dL (31-37) Red Cell Distribution Width 16.1% (11.5-14.5) 15.5% (11.5-14.5) Platelet Count 129x10^3/uL (140-400) 127x10^3/uL (140-400) Neutrophils (%) (Auto) 73% (31-73) 74% (31-73) Lymphocytes (%) (Auto) 16% (24-48) 17% (24-48) Monocytes (%) (Auto) 9% (0-9) 7% (0-9) Eosinophils (%) (Auto) 1% (0-3) 2% (0-3) Basophils (%) (Auto) 1% (0-3) 1% (0-3) Neutrophils # (Auto) 4.7x10^3uL (1.8-7.7) 5.2x10^3uL (1.8-7.7) Lymphocytes # (Auto) 1.0x10^3/uL (1.0-4.8) 1.2x10^3/uL (1.0-4.8) Monocytes # (Auto) 0.6x10^3/uL (0.0-1.1) 0.5x10^3/uL (0.0-1.1) Eosinophils # (Auto) 0.1x10^3/uL (0.0-0.7) 0.1x10^3/uL (0.0-0.7) Basophils # (Auto) 0.0x10^3/uL (0.0-0.2) 0.0x10^3/uL (0.0-0.2) Sodium Level 146mmol/L (136-145) 148mmol/L (136-145) Potassium Level 4.5mmol/L (3.5-5.1) 4.1mmol/L (3.5-5.1) Chloride Level 116mmol/L (98-107) 119mmol/L (98-107) Carbon Dioxide Level 10mmol/L (21-32) 8mmol/L (21-32) Anion Gap 20 (6-14) 21 (6-14) Blood Urea Nitrogen 87mg/dL (7-20) 85mg/dL (7-20) Creatinine 4.5mg/dL (0.6-1.0) 4.1mg/dL (0.6-1.0) Estimated GFR (Cockcroft-Gault) 9.7 10.9 BUN/Creatinine Ratio 19 (6-20) Glucose Level 113mg/dL (70-99) 80mg/dL (70-99) Calcium Level 7.8mg/dL (8.5-10.1) 7.8mg/dL (8.5-10.1) Magnesium Level 1.3mg/dL (1.8-2.4) Total Bilirubin 0.2mg/dL (0.2-1.0) Aspartate Amino Transf (AST/SGOT) 12U/L (15-37) Alanine Aminotransferase (ALT/SGPT) 15U/L (14-59) Alkaline Phosphatase 129U/L (46-116) Troponin I Quantitative < 0.017ng/mL (0.000-0.055) ZO-Eww-U-Type Natriuretic Peptide 3110pg/mL (0-124) Total Protein 7.0g/dL (6.4-8.2) Albumin 3.4g/dL (3.4-5.0) Albumin/Globulin Ratio 0.9 (1.0-1.7) Urine Collection Type Unknown Urine Color Yellow Urine Clarity Cloudy Urine pH 5.5 Urine Specific [place] 1.010 Urine Protein 30mg/dL (NEG-TRACE) Urine Glucose (UA) Negativemg/dL (NEG) Urine Ketones (Stick) Negativemg/dL (NEG) Urine Blood Large (NEG) Urine Nitrite Negative (NEG) Urine Bilirubin Negative (NEG) Urine Urobilinogen Dipstick 0.2mg/dL (0.2 mg/dL) Urine Leukocyte Esterase Large (NEG) Urine RBC 11-20/HPF (0-2) Urine WBC Tntc/HPF (0-4) Urine Squamous Epithelial Cells Few/LPF Urine Bacteria Many/HPF (0-FEW) Urine Mucus Slight/LPF Laboratory Tests Test 11/26/16 18:38 11/26/16 18:56 11/26/16 23:40 11/27/16 03:40 Glucose (Fingerstick) 86mg/dL (70-99) White Blood Count 6.4x10^3/uL (4.0-11.0) 7.0x10^3/uL (4.0-11.0) Red Blood Count 3.55x10^6/uL (3.50-5.40) 3.46x10^6/uL (3.50-5.40) Hemoglobin 9.9g/dL (12.0-15.5) 9.7g/dL (12.0-15.5) Hematocrit 32.5% (36.0-47.0) 31.5% (36.0-47.0) Mean Corpuscular Volume 92fL (79-100) 91fL (79-100) Mean Corpuscular Hemoglobin 28pg (25-35) 28pg (25-35) Mean Corpuscular Hemoglobin Concent 31g/dL (31-37) 31g/dL (31-37) Red Cell Distribution Width 16.1% (11.5-14.5) 15.5% (11.5-14.5) Platelet Count 129x10^3/uL (140-400) 127x10^3/uL (140-400) Neutrophils (%) (Auto) 73% (31-73) 74% (31-73) Lymphocytes (%) (Auto) 16% (24-48) 17% (24-48) Monocytes (%) (Auto) 9% (0-9) 7% (0-9) Eosinophils (%) (Auto) 1% (0-3) 2% (0-3) Basophils (%) (Auto) 1% (0-3) 1% (0-3) Neutrophils # (Auto) 4.7x10^3uL (1.8-7.7) 5.2x10^3uL (1.8-7.7) Lymphocytes # (Auto) 1.0x10^3/uL (1.0-4.8) 1.2x10^3/uL (1.0-4.8) Monocytes # (Auto) 0.6x10^3/uL (0.0-1.1) 0.5x10^3/uL (0.0-1.1) Eosinophils # (Auto) 0.1x10^3/uL (0.0-0.7) 0.1x10^3/uL (0.0-0.7) Basophils # (Auto) 0.0x10^3/uL (0.0-0.2) 0.0x10^3/uL (0.0-0.2) Sodium Level 146mmol/L (136-145) 148mmol/L (136-145) Potassium Level 4.5mmol/L (3.5-5.1) 4.1mmol/L (3.5-5.1) Chloride Level 116mmol/L (98-107) 119mmol/L (98-107) Carbon Dioxide Level 10mmol/L (21-32) 8mmol/L (21-32) Anion Gap 20 (6-14) 21 (6-14) Blood Urea Nitrogen 87mg/dL (7-20) 85mg/dL (7-20) Creatinine 4.5mg/dL (0.6-1.0) 4.1mg/dL (0.6-1.0) Estimated GFR (Cockcroft-Gault) 9.7 10.9 BUN/Creatinine Ratio 19 (6-20) Glucose Level 113mg/dL (70-99) 80mg/dL (70-99) Calcium Level 7.8mg/dL (8.5-10.1) 7.8mg/dL (8.5-10.1) Magnesium Level 1.3mg/dL (1.8-2.4) Total Bilirubin 0.2mg/dL (0.2-1.0) Aspartate Amino Transf (AST/SGOT) 12U/L (15-37) Alanine Aminotransferase (ALT/SGPT) 15U/L (14-59) Alkaline Phosphatase 129U/L (46-116) Troponin I Quantitative < 0.017ng/mL (0.000-0.055) GI-Fem-D-Type Natriuretic Peptide 3110pg/mL (0-124) Total Protein 7.0g/dL (6.4-8.2) Albumin 3.4g/dL (3.4-5.0) Albumin/Globulin Ratio 0.9 (1.0-1.7) Urine Collection Type Unknown Urine Color Yellow Urine Clarity Cloudy Urine pH 5.5 Urine Specific [place] 1.010 Urine Protein 30mg/dL (NEG-TRACE) Urine Glucose (UA) Negativemg/dL (NEG) Urine Ketones (Stick) Negativemg/dL (NEG) Urine Blood Large (NEG) Urine Nitrite Negative (NEG) Urine Bilirubin Negative (NEG) Urine Urobilinogen Dipstick 0.2mg/dL (0.2 mg/dL) Urine Leukocyte Esterase Large (NEG) Urine RBC 11-20/HPF (0-2) Urine WBC Tntc/HPF (0-4) Urine Squamous Epithelial Cells Few/LPF Urine Bacteria Many/HPF (0-FEW) Urine Mucus Slight/LPF Images Images CXR: IMPRESSION: 1. Mild cardiomegaly and aortic atherosclerosis. 2. No acute abnormality is detected. Abdominal ultrasound, 08/08/2016: History: Pancytopenia The gallbladder is surgically absent. There is no evidence of a hepatic mass or bile duct dilatation. The visualized portions of the pancreas are unremarkable. The spleen measures 9.4 cm in length. The kidneys demonstrate mild cortical scarring. There is no evidence of obstruction or a mass. The abdominal aorta and inferior vena cava are of normal caliber. No free fluid is evident in the abdomen. RUTH MONTANO MD Nov 27, 2016 11:27
[2016-11-27] MEDS ORDERED: MAGNESIUM SULFATE 2GM 50 ML IV PRN (11:30)
[2016-11-27] MEDS: LOPERAMIDE 2 MG CAPSULE PO SCH (12:02)
--- NOTE | 2016-11-27 12:28 | RAD ---
Indication acute renal failure superimposed on chronic disease. Grayscale imaging targeted to the kidneys was performed. Note is made of a previous examination 06/06/2008. The right kidney measures 10.6 x 4.1 x 3.2 cm. No hydronephrosis or discrete mass is seen. The left kidney measures 10.7 x 5.1 x 4.8 cm and also shows no evidence of hydronephrosis or mass. Both kidneys are somewhat echogenic suggesting medical renal disease. The urinary bladder appeared grossly normal. IMPRESSION: No evidence of hydronephrosis or mass seen associated with either kidney
[2016-11-27] MEDS ORDERED: IOHEXOL 240 MG/ML 50ML VIAL. PO ONE (13:00)
[2016-11-27 13:21] LABS: % SAT IRON 24 % (15-34); IRON,SERUM 47 ug/dL (50-170)
[2016-11-27 13:36] LABS: ALBUMIN 3.6 g/dL (3.4-5.0); URIC ACID 7.8 mg/dL (2.6-6.0)
[2016-11-27 15:00] VITALS: BP 142/70
[2016-11-27] MEDS ORDERED: LIDOCAINE 1% / SOD BICARB 8.4% 20 ML VIAL. IJ ONE (15:30)
[2016-11-27] MEDS ORDERED: HEPARIN for IV BOLUS 10,000 UNIT/10 ML VIAL. ONE (15:58)
--- NOTE | 2016-11-27 16:32 | RAD ---
Indication abdominal pain. History of stones. Axial images through the abdomen and pelvis were obtained. Oral contrast was administered. IV contrast was not. No recent CT imaging of the abdomen or pelvis is available. Note is made of a prior examination 03/31/2008. The lung bases are unremarkable. There is marked diastases of the rectus muscle or there is a ventral abdominal wall hernia. It appears uncomplicated. A focal mass in the liver or spleen is not seen. Clips are noted in the gallbladder fossa. No pancreatic abnormality is seen. No adrenal or significant renal anomalies are seen. No renal calculi are seen on either side. There is no hydronephrosis hydroureter or definite calcification seen along the course of either ureter. Vascular calcification is noted. Occasional calcifications are seen in the pelvis compatible with phleboliths. An acute finding in the abdomen or pelvis is not seen. Significant degenerative changes are seen about the right SI joint. There are slight dilatation of small bowel loops which is nonspecific IMPRESSION: No acute finding seen in the abdomen or pelvis. Slight dilatation of small bowel loops is noted which is nonspecific
--- NOTE | 2016-11-27 16:39 | PDOC ---
Exam Cashier Host/Hostess Cashier Host/Hostess Ruchi Tack Picker Tack Picker Miguel A Sahu Pre-Procedure Diagnosis Pre-Procedure Diagnosis 66 YO female with KEYONNA on CKD, with metabolic acidosis, proteinuria., and micro- hematuria. Needs HD---temp HDC requested by Renal. Post-Procedure Diagnosis Post-Procedure Diagnosis Same Procedure Performed Procedure Performed Sono/fluoro guided temp HDC insertion. Type of Anesthesia Type of Anesthesia Local only Estimated Blood Loss EBL: Minimal Drain/Tubes Drains/Tubes Rt IJ 14F 15cm Schon temp HDC Condition of Patient Condition of Patient Stable. No apparent complication. Disposition Disposition From IR return to 574. OK to use temp HDC. F/u with Renal. Full report to follow. EZEKIEL BONILLA MD Nov 27, 2016 16:39
[2016-11-27] MEDS ORDERED: IV NORMAL SALINE 1000ML BAG 1,000 ML IV PRN (17:38)
[2016-11-27] MEDS ORDERED: DIALYSIS PATIENT. MC PRN (17:45)
[2016-11-27] MEDS ORDERED: ALBUMIN HUMAN 25% 200 ML IV PRN (17:45)
[2016-11-27 22:32] VITALS: BP 142/71
--- NOTE | 2016-11-27 23:18 | CONS ---
DATE OF CONSULTATION: PRIMARY PHYSICIAN: Dr. Bob. REASON FOR CONSULTATION: Acute renal failure with suspected underlying chronic renal insufficiency. HISTORY OF PRESENT ILLNESS: The patient is a 66-year-old -[place] female followed by the primary care physician. She has not seen a store leader in the past. She was extremely weak at home ____ two of her daughters to lift her up out of bed. She had significant generalized weakness. She is otherwise known to ambulate to the bathroom by herself due to off and on issues with diarrhea; however, when the daughter saw her, she was too weak to get out of bed. She was extremely fatigued. She was showing signs of confusion and difficulty with memory. She has not been urinating much. She has been taking ibuprofen in recent past. She has not had history of colon cancer, multiple abdominal surgeries, kidney stones, partial colectomy, and chronic diarrhea from there. She does have some abdominal pain. She also has a possible ventral incisional hernia. On presentation, her BUN was 87 and a creatinine of 4.5, bicarbonate of 10 and she was given IV fluids with bicarbonate and her bicarbonate is now 8 with a gap of 21. Lactate is not available. Magnesium was 1.3, calcium is also low at 7.8. In this setting, we were asked to see her for further evaluation. Urine output is minimum. Sodium is 148. PAST MEDICAL HISTORY: Extensive; however, her daughter and the patient are both not great historians. She is known to have heart murmur since her childhood. She has hypertension, asthma, sleep apnea, but does not use CPAP, hiatal hernia, abdominal hernia repair with bowel resection and colon cancer, status post partial colectomy, cholecystectomy, exogenous obesity, chronic diarrhea, GERD, cervical cancer status post hysterectomy, kidney stones status post surgery for the same including lithotripsy, cystoscopy, previous UTIs, chronic arthritis, right radial fracture and alcohol use in the past. SOCIAL HISTORY: Lives by herself. Occasional alcohol use. No current tobacco use. FAMILY HISTORY: Positive for kidney problems in the family. She cannot elaborate much on the same. For rest of details, see electronic records. RUTH MONTANO MD DR: ALY/lacey JOB#: [id number] / [id number]
[2016-11-28 01:14] LABS: HEP B SURFACE ABDY Non Reactive (.)
[2016-11-28 02:12] LABS: HEP B SURFACE ABDY Non Reactive (.)
[2016-11-28 03:00] VITALS: BP 111/59
[2016-11-28 06:21] LABS: MAGNESIUM 1.1 mg/dL (1.8-2.4); PHOSPHORUS 2.6 mg/dL (2.6-4.7)
[2016-11-28 06:22] LABS: ALBUMIN 2.7 g/dL (3.4-5.0); CALCIUM 6.8 mg/dL (8.5-10.1); GFR 24.9; PHOSPHORUS 2.4 mg/dL (2.6-4.7)
[2016-11-28 06:26] LABS: POTASSIUM 2.6 mmol/L (3.5-5.1)
[2016-11-28 07:00] VITALS: BP 99/57
[2016-11-28] MEDS ORDERED: POTASSIUM CHLORIDE 20 MEQ TABLET.ER. PO ONE (07:00)
--- NOTE | 2016-11-28 07:35 | RAD ---
Ultrasound and fluoro guided right IJ temporary hemodialysis catheter Indication: 66-year-old female with acute kidney injury on chronic kidney disease. Proteinuria. Hematuria. Metabolic acidosis. Temporary dialysis catheter insertion requested by renal. Fluoro time: 0.3 minutes Kerma-Area Product: 0.3 Gycm2 Anesthesia: Local only Sterility: All elements of maximal sterile barrier technique, including the use of a cap, mask, sterile gown, sterile gloves, large sterile sheet, appropriate hand hygiene, and 2% chlorhexidine for cutaneous antisepsis (or acceptable alternative antiseptic per current guidelines) were utilized. Procedure: Informed consent was obtained from the patient. She was placed supine on the angiography table. Preliminary ultrasound examination of right neck revealed patency of right internal jugular vein, which was documented with a single hard copy ultrasound image. Right neck was then prepped and draped in the usual sterile fashion, utilizing all elements of maximal sterile barrier technique, as described above. Using aseptic technique, local anesthesia, direct ultrasound guidance, and the micropuncture system, successful percutaneous entry was achieved into right internal jugular vein. The right IJ venostomy tract was then dilated and a 14 [place] 15 cm Schon temporary hemodialysis catheter was easily advanced centrally over an angiographic guidewire, and was positioned with its tip at the level of cavoatrial junction utilizing fluoroscopic guidance. This catheter was documented to flush and aspirate normally, was packed, and was secured at the right neck exit site utilizing suture and sterile dressing. Patient tolerated the procedure well without apparent complication. Satisfactory position of the dialysis catheter was confirmed with a single fluoroscopic spot image. Impression: Successful, uneventful ultrasound and fluoro guided placement of right IJ 14 Romanian 15 cm Schon temporary hemodialysis catheter, as described.
[2016-11-28] MEDS ORDERED: IV NORMAL SALINE 1000ML BAG 1,000 ML IV PRN ×2 (08:28)
[2016-11-28] MEDS ORDERED: DIALYSIS PATIENT. MC PRN (08:30)
[2016-11-28] MEDS ORDERED: ACETAMINOPHEN 500 MG TABLET PO PRN (08:30)
[2016-11-28] MEDS ORDERED: ALBUMIN HUMAN 25% 200 ML IV PRN (08:30)
[2016-11-28] MEDS ORDERED: diphenhydrAMINE 50 MG/ML VIAL IV PRN ×2 (08:30)
[2016-11-28] MEDS: ONDANSETRON PF 4 MG/2 ML VIAL. IV PRN ×2 (08:36→15:56)
--- NOTE | 2016-11-28 08:56 | PDOC ---
Dialysis Progress Note Dialysis Note Dialysis Note Seen on Hemodialysis, tolerating treatment Okay so far Vitals on Hemodialysis: 108/62 60 afeb General Appearance: Awake: Alert Oriented x 3 Neck: No JVD or JVP Chest: CTA [place] Heart: S1 S2 Abdomen - Soft ND Min TTP Extremities - No Edema ARF: Dialysis as below F 180 NR 3.0 Hrs 4 K 3.5 Ca 140 Na 30 HC03 Qb 350 + Qd 500+ Heparin 0 Units Uf 0 Kgs or to dry weight as tolerated May give 25-50 gms of 25% Albumin if needed to maintain Hemodynamic stability Treatment plan reviewed and discussed with senior hydrogeologist Elsye Arnav blue and PHos. Watch off of HD for next 2 days and watch UO and trend Creat. Will need more accurate UO monitoring. May need Harris Vitals Vital Signs Vital Signs Date Time Temp Pulse Resp B/P Pulse Ox O2 Delivery O2 Flow Rate FiO2 11/28/16 07:00 99.9 71 18 99/57 97 Room Air 99.9 Labs Last Labs Laboratory Tests Test 11/26/16 18:38 11/26/16 18:56 11/26/16 23:40 11/27/16 03:40 Glucose (Fingerstick) 86mg/dL (70-99) White Blood Count 6.4x10^3/uL (4.0-11.0) 7.0x10^3/uL (4.0-11.0) Red Blood Count 3.55x10^6/uL (3.50-5.40) 3.46x10^6/uL (3.50-5.40) Hemoglobin 9.9g/dL (12.0-15.5) 9.7g/dL (12.0-15.5) Hematocrit 32.5% (36.0-47.0) 31.5% (36.0-47.0) Mean Corpuscular Volume 92fL (79-100) 91fL (79-100) Mean Corpuscular Hemoglobin 28pg (25-35) 28pg (25-35) Mean Corpuscular Hemoglobin Concent 31g/dL (31-37) 31g/dL (31-37) Red Cell Distribution Width 16.1% (11.5-14.5) 15.5% (11.5-14.5) Platelet Count 129x10^3/uL (140-400) 127x10^3/uL (140-400) Neutrophils (%) (Auto) 73% (31-73) 74% (31-73) Lymphocytes (%) (Auto) 16% (24-48) 17% (24-48) Monocytes (%) (Auto) 9% (0-9) 7% (0-9) Eosinophils (%) (Auto) 1% (0-3) 2% (0-3) Basophils (%) (Auto) 1% (0-3) 1% (0-3) Neutrophils # (Auto) 4.7x10^3uL (1.8-7.7) 5.2x10^3uL (1.8-7.7) Lymphocytes # (Auto) 1.0x10^3/uL (1.0-4.8) 1.2x10^3/uL (1.0-4.8) Monocytes # (Auto) 0.6x10^3/uL (0.0-1.1) 0.5x10^3/uL (0.0-1.1) Eosinophils # (Auto) 0.1x10^3/uL (0.0-0.7) 0.1x10^3/uL (0.0-0.7) Basophils # (Auto) 0.0x10^3/uL (0.0-0.2) 0.0x10^3/uL (0.0-0.2) Sodium Level 146mmol/L (136-145) 148mmol/L (136-145) Potassium Level 4.5mmol/L (3.5-5.1) 4.1mmol/L (3.5-5.1) Chloride Level 116mmol/L (98-107) 119mmol/L (98-107) Carbon Dioxide Level 10mmol/L (21-32) 8mmol/L (21-32) Anion Gap 20 (6-14) 21 (6-14) Blood Urea Nitrogen 87mg/dL (7-20) 85mg/dL (7-20) Creatinine 4.5mg/dL (0.6-1.0) 4.1mg/dL (0.6-1.0) Estimated GFR (Cockcroft-Gault) 9.7 10.9 BUN/Creatinine Ratio 19 (6-20) Glucose Level 113mg/dL (70-99) 80mg/dL (70-99) Calcium Level 7.8mg/dL (8.5-10.1) 7.8mg/dL (8.5-10.1) Magnesium Level 1.3mg/dL (1.8-2.4) 1.3mg/dL (1.8-2.4) Total Bilirubin 0.2mg/dL (0.2-1.0) Aspartate Amino Transf (AST/SGOT) 12U/L (15-37) Alanine Aminotransferase (ALT/SGPT) 15U/L (14-59) Alkaline Phosphatase 129U/L (46-116) Troponin I Quantitative < 0.017ng/mL (0.000-0.055) MF-Lvq-H-Type Natriuretic Peptide 3110pg/mL (0-124) Total Protein 7.0g/dL (6.4-8.2) Albumin 3.4g/dL (3.4-5.0) Albumin/Globulin Ratio 0.9 (1.0-1.7) Urine Collection Type Unknown Urine Color Yellow Urine Clarity Cloudy Urine pH 5.5 Urine Specific [place] 1.010 Urine Protein 30mg/dL (NEG-TRACE) Urine Glucose (UA) Negativemg/dL (NEG) Urine Ketones (Stick) Negativemg/dL (NEG) Urine Blood Large (NEG) Urine Nitrite Negative (NEG) Urine Bilirubin Negative (NEG) Urine Urobilinogen Dipstick 0.2mg/dL (0.2 mg/dL) Urine Leukocyte Esterase Large (NEG) Urine RBC 11-20/HPF (0-2) Urine WBC Tntc/HPF (0-4) Urine Squamous Epithelial Cells Few/LPF Urine Bacteria Many/HPF (0-FEW) Urine Mucus Slight/LPF Test 11/27/16 12:10 11/27/16 12:50 11/28/16 05:24 Uric Acid 7.8mg/dL (2.6-6.0) Ferritin 535ng/mL (8-252) Creatine Kinase 40U/L (26-192) Albumin 3.6g/dL (3.4-5.0) 2.7g/dL (3.4-5.0) Reticulocyte Count (auto) 0.7% (0.5-2.5) Lactic Acid Level 1.0mmol/L (0.4-2.0) Iron Level 47ug/dL (50-170) Total Iron Binding Capacity 195ug/dL (250-450) Iron Saturation 24% (15-34) 25-Hydroxy Vitamin D Total 29.5ng/mL (30.0-100.0) Hepatitis B Surface Antigen Negative (Negative) Hepatitis B Surface Antibody Non reactive (.) Hepatitis B Core Total Antibody Negative (Negative) Hemoglobin 8.4g/dL (12.0-15.5) Sodium Level 143mmol/L (136-145) Potassium Level 2.6mmol/L (3.5-5.1) Chloride Level 105mmol/L (98-107) Carbon Dioxide Level 30mmol/L (21-32) Anion Gap 8 (6-14) Blood Urea Nitrogen 27mg/dL (7-20) Creatinine 2.0mg/dL (0.6-1.0) Estimated GFR (Cockcroft-Gault) 24.9 Glucose Level 96mg/dL (70-99) Calcium Level 6.8mg/dL (8.5-10.1) Phosphorus Level 2.4mg/dL (2.6-4.7) Magnesium Level 1.1mg/dL (1.8-2.4) Laboratory Tests Test 11/27/16 12:10 11/27/16 12:50 11/28/16 05:24 Uric Acid 7.8mg/dL (2.6-6.0) Ferritin 535ng/mL (8-252) Creatine Kinase 40U/L (26-192) Albumin 3.6g/dL (3.4-5.0) 2.7g/dL (3.4-5.0) Reticulocyte Count (auto) 0.7% (0.5-2.5) Lactic Acid Level 1.0mmol/L (0.4-2.0) Iron Level 47ug/dL (50-170) Total Iron Binding Capacity 195ug/dL (250-450) Iron Saturation 24% (15-34) 25-Hydroxy Vitamin D Total 29.5ng/mL (30.0-100.0) Hepatitis B Surface Antigen Negative (Negative) Hepatitis B Surface Antibody Non reactive (.) Hepatitis B Core Total Antibody Negative (Negative) Hemoglobin 8.4g/dL (12.0-15.5) Sodium Level 143mmol/L (136-145) Potassium Level 2.6mmol/L (3.5-5.1) Chloride Level 105mmol/L (98-107) Carbon Dioxide Level 30mmol/L (21-32) Anion Gap 8 (6-14) Blood Urea Nitrogen 27mg/dL (7-20) Creatinine 2.0mg/dL (0.6-1.0) Estimated GFR (Cockcroft-Gault) 24.9 Glucose Level 96mg/dL (70-99) Calcium Level 6.8mg/dL (8.5-10.1) Phosphorus Level 2.4mg/dL (2.6-4.7) Magnesium Level 1.1mg/dL (1.8-2.4) Assessment Assessment Problems Medical Problems: (1) Acute on chronic renal failure Status: Acute (2) Hypocalcemia Status: Acute (3) Hypomagnesemia Status: Acute (4) Metabolic encephalopathy Status: Acute (5) Normocytic anemia Status: Acute Problems: Plan Plan of Care Problems Medical Problems: (1) Acute on chronic renal failure Status: Acute (2) Hypocalcemia Status: Acute (3) Hypomagnesemia Status: Acute (4) Metabolic encephalopathy Status: Acute (5) Normocytic anemia Status: Acute RUTH MONTANO MD Nov 28, 2016 08:56
[2016-11-28] MEDS: SODIUM BICARBONATE VIAL 100 MEQ in IV DEXTROSE 5% 1,000 ML IV SCH ×2 (09:24→18:12)
[2016-11-28] MEDS ORDERED: MAGNESIUM SULFATE 2GM 50 ML IV ONE (09:30)
--- NOTE | 2016-11-28 11:08 | PDOC ---
PROGRESS NOTES Chief Complaint Chief Complaint 1. ARF on CKD, possibly stage 4-5 based on GFR 2. NEW HD (11/28/16) 3. ANemia of CKD 3. HTN, controlled 4. GAP metabolic acidosis 5. Urinary incontinence 6. Gen weakness sec to above History of Present Illness History of Present Illness HAd HD cath insertion yesterday Now undergoing session HD Tolerating well Some generalized weakness Crea down to 2 from 4 on admission K 2.6 - replaced by renal already PLAN: CPM Renal panel daily PT/OT - might need SNU or rehab Vitals Vitals Vital Signs Date Time Temp Pulse Resp B/P Pulse Ox O2 Delivery O2 Flow Rate FiO2 11/28/16 09:00 Room Air 11/28/16 07:00 99.9 71 18 99/57 97 99.9 Physical Exam General: Alert, Oriented X3, Cooperative, No acute distress Lungs: Clear Abdomen: Normal bowel sounds, Soft, No tenderness, No hepatosplenomegaly, No masses Extremities: No clubbing, No cyanosis, No edema, Normal pulses, No tenderness/ swelling Skin: No rashes, No breakdown, No significant lesion Labs LABS Laboratory Tests Test 11/27/16 12:10 11/27/16 12:50 11/28/16 05:24 Uric Acid 7.8mg/dL (2.6-6.0) Ferritin 535ng/mL (8-252) Creatine Kinase 40U/L (26-192) Albumin 3.6g/dL (3.4-5.0) 2.7g/dL (3.4-5.0) Reticulocyte Count (auto) 0.7% (0.5-2.5) Lactic Acid Level 1.0mmol/L (0.4-2.0) Iron Level 47ug/dL (50-170) Total Iron Binding Capacity 195ug/dL (250-450) Iron Saturation 24% (15-34) 25-Hydroxy Vitamin D Total 29.5ng/mL (30.0-100.0) Hepatitis B Surface Antigen Negative (Negative) Hepatitis B Surface Antibody Non reactive (.) Hepatitis B Core Total Antibody Negative (Negative) Hemoglobin 8.4g/dL (12.0-15.5) Sodium Level 143mmol/L (136-145) Potassium Level 2.6mmol/L (3.5-5.1) Chloride Level 105mmol/L (98-107) Carbon Dioxide Level 30mmol/L (21-32) Anion Gap 8 (6-14) Blood Urea Nitrogen 27mg/dL (7-20) Creatinine 2.0mg/dL (0.6-1.0) Estimated GFR (Cockcroft-Gault) 24.9 Glucose Level 96mg/dL (70-99) Calcium Level 6.8mg/dL (8.5-10.1) Phosphorus Level 2.4mg/dL (2.6-4.7) Magnesium Level 1.1mg/dL (1.8-2.4) Review of Systems Review of Systems no n/v/emesis, diarrhea Assessment and Plan Assessmemt and Plan Problems Medical Problems: (1) Acute on chronic renal failure Status: Acute (2) Hypocalcemia Status: Acute (3) Hypomagnesemia Status: Acute (4) Metabolic encephalopathy Status: Acute (5) Normocytic anemia Status: Acute Problems: Comment Review of Relevant I have reviewed the following items yoel (where applicable) has been applied. Labs Laboratory Tests Test 11/26/16 18:38 11/26/16 18:56 11/26/16 23:40 11/27/16 03:40 Glucose (Fingerstick) 86mg/dL (70-99) White Blood Count 6.4x10^3/uL (4.0-11.0) 7.0x10^3/uL (4.0-11.0) Red Blood Count 3.55x10^6/uL (3.50-5.40) 3.46x10^6/uL (3.50-5.40) Hemoglobin 9.9g/dL (12.0-15.5) 9.7g/dL (12.0-15.5) Hematocrit 32.5% (36.0-47.0) 31.5% (36.0-47.0) Mean Corpuscular Volume 92fL (79-100) 91fL (79-100) Mean Corpuscular Hemoglobin 28pg (25-35) 28pg (25-35) Mean Corpuscular Hemoglobin Concent 31g/dL (31-37) 31g/dL (31-37) Red Cell Distribution Width 16.1% (11.5-14.5) 15.5% (11.5-14.5) Platelet Count 129x10^3/uL (140-400) 127x10^3/uL (140-400) Neutrophils (%) (Auto) 73% (31-73) 74% (31-73) Lymphocytes (%) (Auto) 16% (24-48) 17% (24-48) Monocytes (%) (Auto) 9% (0-9) 7% (0-9) Eosinophils (%) (Auto) 1% (0-3) 2% (0-3) Basophils (%) (Auto) 1% (0-3) 1% (0-3) Neutrophils # (Auto) 4.7x10^3uL (1.8-7.7) 5.2x10^3uL (1.8-7.7) Lymphocytes # (Auto) 1.0x10^3/uL (1.0-4.8) 1.2x10^3/uL (1.0-4.8) Monocytes # (Auto) 0.6x10^3/uL (0.0-1.1) 0.5x10^3/uL (0.0-1.1) Eosinophils # (Auto) 0.1x10^3/uL (0.0-0.7) 0.1x10^3/uL (0.0-0.7) Basophils # (Auto) 0.0x10^3/uL (0.0-0.2) 0.0x10^3/uL (0.0-0.2) Sodium Level 146mmol/L (136-145) 148mmol/L (136-145) Potassium Level 4.5mmol/L (3.5-5.1) 4.1mmol/L (3.5-5.1) Chloride Level 116mmol/L (98-107) 119mmol/L (98-107) Carbon Dioxide Level 10mmol/L (21-32) 8mmol/L (21-32) Anion Gap 20 (6-14) 21 (6-14) Blood Urea Nitrogen 87mg/dL (7-20) 85mg/dL (7-20) Creatinine 4.5mg/dL (0.6-1.0) 4.1mg/dL (0.6-1.0) Estimated GFR (Cockcroft-Gault) 9.7 10.9 BUN/Creatinine Ratio 19 (6-20) Glucose Level 113mg/dL (70-99) 80mg/dL (70-99) Calcium Level 7.8mg/dL (8.5-10.1) 7.8mg/dL (8.5-10.1) Magnesium Level 1.3mg/dL (1.8-2.4) 1.3mg/dL (1.8-2.4) Total Bilirubin 0.2mg/dL (0.2-1.0) Aspartate Amino Transf (AST/SGOT) 12U/L (15-37) Alanine Aminotransferase (ALT/SGPT) 15U/L (14-59) Alkaline Phosphatase 129U/L (46-116) Troponin I Quantitative < 0.017ng/mL (0.000-0.055) EK-Qcn-O-Type Natriuretic Peptide 3110pg/mL (0-124) Total Protein 7.0g/dL (6.4-8.2) Albumin 3.4g/dL (3.4-5.0) Albumin/Globulin Ratio 0.9 (1.0-1.7) Urine Collection Type Unknown Urine Color Yellow Urine Clarity Cloudy Urine pH 5.5 Urine Specific [place] 1.010 Urine Protein 30mg/dL (NEG-TRACE) Urine Glucose (UA) Negativemg/dL (NEG) Urine Ketones (Stick) Negativemg/dL (NEG) Urine Blood Large (NEG) Urine Nitrite Negative (NEG) Urine Bilirubin Negative (NEG) Urine Urobilinogen Dipstick 0.2mg/dL (0.2 mg/dL) Urine Leukocyte Esterase Large (NEG) Urine RBC 11-20/HPF (0-2) Urine WBC Tntc/HPF (0-4) Urine Squamous Epithelial Cells Few/LPF Urine Bacteria Many/HPF (0-FEW) Urine Mucus Slight/LPF Test 11/27/16 12:10 11/27/16 12:50 11/28/16 05:24 Uric Acid 7.8mg/dL (2.6-6.0) Ferritin 535ng/mL (8-252) Creatine Kinase 40U/L (26-192) Albumin 3.6g/dL (3.4-5.0) 2.7g/dL (3.4-5.0) Reticulocyte Count (auto) 0.7% (0.5-2.5) Lactic Acid Level 1.0mmol/L (0.4-2.0) Iron Level 47ug/dL (50-170) Total Iron Binding Capacity 195ug/dL (250-450) Iron Saturation 24% (15-34) 25-Hydroxy Vitamin D Total 29.5ng/mL (30.0-100.0) Hepatitis B Surface Antigen Negative (Negative) Hepatitis B Surface Antibody Non reactive (.) Hepatitis B Core Total Antibody Negative (Negative) Hemoglobin 8.4g/dL (12.0-15.5) Sodium Level 143mmol/L (136-145) Potassium Level 2.6mmol/L (3.5-5.1) Chloride Level 105mmol/L (98-107) Carbon Dioxide Level 30mmol/L (21-32) Anion Gap 8 (6-14) Blood Urea Nitrogen 27mg/dL (7-20) Creatinine 2.0mg/dL (0.6-1.0) Estimated GFR (Cockcroft-Gault) 24.9 Glucose Level 96mg/dL (70-99) Calcium Level 6.8mg/dL (8.5-10.1) Phosphorus Level 2.4mg/dL (2.6-4.7) Magnesium Level 1.1mg/dL (1.8-2.4) Laboratory Tests Test 11/27/16 12:10 11/27/16 12:50 11/28/16 05:24 Uric Acid 7.8mg/dL (2.6-6.0) Ferritin 535ng/mL (8-252) Creatine Kinase 40U/L (26-192) Albumin 3.6g/dL (3.4-5.0) 2.7g/dL (3.4-5.0) Reticulocyte Count (auto) 0.7% (0.5-2.5) Lactic Acid Level 1.0mmol/L (0.4-2.0) Iron Level 47ug/dL (50-170) Total Iron Binding Capacity 195ug/dL (250-450) Iron Saturation 24% (15-34) 25-Hydroxy Vitamin D Total 29.5ng/mL (30.0-100.0) Hepatitis B Surface Antigen Negative (Negative) Hepatitis B Surface Antibody Non reactive (.) Hepatitis B Core Total Antibody Negative (Negative) Hemoglobin 8.4g/dL (12.0-15.5) Sodium Level 143mmol/L (136-145) Potassium Level 2.6mmol/L (3.5-5.1) Chloride Level 105mmol/L (98-107) Carbon Dioxide Level 30mmol/L (21-32) Anion Gap 8 (6-14) Blood Urea Nitrogen 27mg/dL (7-20) Creatinine 2.0mg/dL (0.6-1.0) Estimated GFR (Cockcroft-Gault) 24.9 Glucose Level 96mg/dL (70-99) Calcium Level 6.8mg/dL (8.5-10.1) Phosphorus Level 2.4mg/dL (2.6-4.7) Magnesium Level 1.1mg/dL (1.8-2.4) Medications Current Medications Sodium Chloride (Iv Sodium Chloride 0.9% 1000ml Bag) 1,000 ml @ 100 mls/hr 1X ONCE IV Last administered on 11/26/16 19:38; Start 11/26/16 at 19:30; Stop at 05:29; Status DC Ondansetron HCl 4 mg 4 mg PRN Q8HRS PRN IV NAUSEA/VOMITING; Start 11/26/16 at 20:45; Stop 11/27/16 at 08:29; Status DC Sodium Chloride (Iv Sodium Chloride 0.9% 1000ml Bag) 1,000 ml @ 125 mls/hr Q8H IV Last administered on 11/27/16 04:53; Start 11/26/16 at 20:31; Stop at 06:39; Status DC Acetaminophen 650 mg 650 mg PRN Q4HRS PRN PO FEVER; Start 11/26/16 at 20:45; Stop 11/27/16 at 20:44; Status DC Sodium Bicarbonate 100 meq/Dextrose 1,100 ml @ 125 mls/hr Q8H48M IV Last administered on 11/27/16 06:25; Start 11/27/16 at 06:30; Stop 11/27/16 at 06:35 ; Status DC Sodium Bicarbonate/ Dextrose 1,100 ml @ 125 mls/hr Q8H48M IV Last administered on 11/27/16 23:56; Start 11/27/16 at 07:00 Ondansetron HCl (Zofran) 4 mg PRN Q6HRS PRN IV NAUSEA/VOMITING Last administered on 11/28/16 08:36; Start 11/27/16 at 08:28 Amlodipine Besylate (Norvasc) 10 mg DAILY08 PO ; Start 11/28/16 at 08:00 Fluticasone Propionate (Flonase) 2 spray DAILY NS Last administered on 10:00; Start 11/27/16 at 09:00 Loperamide HCl 2 mg 2 mg DAILY08 PO Last administered on 11/27/16 12:02; Start 11/27/16 at 08:45 Magnesium Sulfate/ Dextrose 50 ml @ 25 mls/hr PRN DAILY PRN IV for Mag < 1.7 on am labs; Start 11/27/16 at 11:30 Magnesium Sulfate/ Dextrose (Magnesium Sulfate PREMIX 2GM) 50 ml @ 25 mls/hr PRN DAILY PRN IV for Mag < 1.7 on am labs; Start 11/27/16 at 11:30; Status UNV Iohexol (Omnipaque 240 Mg/ml) 30 ml 1X ONCE PO ; Start 11/27/16 at 13:00; Stop 11/27/16 at 13:01; Status DC Lidocaine/Sodium Bicarbonate (Buffered Lidocaine 1%) 3 ml 1X ONCE IJ Last administered on 11/27/16 16:28; Start 11/27/16 at 15:30; Stop 11/27/16 at 15:31 ; Status DC Heparin Sodium/ Sodium Chloride 60 unit 1X ONCE IV Last administered on 16:28; Start 11/27/16 at 15:30; Stop 11/27/16 at 15:31; Status DC Heparin Sodium (Porcine) (Heparin Sodium) 2,500 unit 1X ONCE INT CAT Last administered on 11/27/16 16:29; Start 11/27/16 at 15:30; Stop 11/27/16 at 15:31 ; Status DC Heparin Sodium (Porcine) 29508 unit 10,000 unit STK-MED ONCE .ROUTE ; Start at 15:58; Stop 11/27/16 at 15:59; Status DC Sodium Chloride 1,000 ml @ 1,000 mls/hr PRN Q1HR PRN IV hypotension; Start at 17:38 Albumin Human (Albuminar) 200 ml @ 200 mls/hr 1X PRN PRN IV Hypotension; Start 11/27/16 at 17:45; Stop 11/27/16 at 23:44; Status DC Info (PHARMACY MONITORING -- do not chart) 1 each PRN DAILY PRN MC SEE COMMENTS ; Start 11/27/16 at 17:45 Acetaminophen (Tylenol) 650 mg PRN Q6HRS PRN PO HEADACHE; Start 11/27/16 at 23: 00 Potassium Chloride 40 meq 40 meq 1X ONCE PO ; Start 11/28/16 at 07:00; Stop at 07:01; Status DC Sodium Chloride 1,000 ml @ 1,000 mls/hr Q1H PRN IV hypotension; Start 11/28/16 at 08:28; Stop 11/28/16 at 14:27 Albumin Human (Albuminar) 200 ml @ 200 mls/hr 1X PRN PRN IV Hypotension; Start 11/28/16 at 08:30; Stop 11/28/16 at 14:29 Acetaminophen (Tylenol) 500 mg 1X PRN PRN PO MILD PAIN / TEMP; Start 11/28/16 at 08:30; Stop 11/29/16 at 08:29 Diphenhydramine HCl (Benadryl) 25 mg 1X PRN PRN IV ITCHING; Start 11/28/16 at 08:30; Stop 11/29/16 at 08:29 Diphenhydramine HCl 25 mg 25 mg 1X PRN PRN IV ITCHING; Start 11/28/16 at 08:30 ; Stop 11/29/16 at 08:29 Sodium Chloride (Iv Sodium Chloride 0.9% 1000ml Bag) 1,000 ml @ 400 mls/hr Q2H30M PRN IV PATENCY; Start 11/28/16 at 08:28; Stop 11/28/16 at 20:27 Info 1 each 1 each PRN DAILY PRN MC SEE COMMENTS; Start 11/28/16 at 08:30 Magnesium Sulfate/ Dextrose 50 ml @ 25 mls/hr 1X ONCE IV ; Start 11/28/16 at 09 :30; Stop 11/28/16 at 11:29 Potassium Phosphate/Sodium Chloride (Potassium Phosphate/Iv Sodium Chloride 0.9 % 100ml) 104.5333 ml @ 52.267 m... Q2H IV ; Start 11/28/16 at 09:30; Stop 11/28 at 15:29 Active Scripts Active Reported Flovent 50MCG Diskus (Fluticasone Propionate) 50 Mcg Disk.w.dev 50 Mcg IH BID Imodium A-D (Loperamide Hcl) 1 Mg/7.5 Ml Liquid 2 Mg PO DAILY08 Norvasc (Amlodipine Besylate) 10 Mg Tablet 10 Mg PO DAILY08 Vitals/I & O Vital Sign - Last 24 Hours 11/27/16 11/27/16 11/27/16 11/28/16 15:00 21:00 22:32 03:00 Temp 98.4 98.5 98.3 98.4 98.5 98.3 Pulse 109 75 71 Resp 16 18 18 B/P 142/70 142/71 111/59 Pulse Ox 94 98 99 O2 Delivery Room Air Room Air Room Air Room Air 11/28/16 11/28/16 07:00 09:00 Temp 99.9 99.9 Pulse 71 Resp 18 B/P 99/57 Pulse Ox 97 O2 Delivery Room Air Room Air Intake and Output 11/27/16 11/27/16 11/28/16 15:00 23:00 07:00 Intake Total 600 ml Output Total 0 ml 0 ml Balance 0 ml 600 ml RAKESH MATA MD Nov 28, 2016 11:08
[2016-11-28 11:22] LABS: PTH INTACT 282 pg/mL (15-65)
[2016-11-28] MEDS: amLODIPine BESYLATE 10 MG TABLET PO SCH (11:35)
[2016-11-28] MEDS: LOPERAMIDE 2 MG CAPSULE PO SCH (11:36)
[2016-11-28] MEDS: POTASSIUM PHOSPHATE DIBASIC 13.6 MMOL in IV NORMAL SALINE 100ML 100 ML IV SCH ×3 (11:37→20:51)
[2016-11-28] MEDS: FLUTICASONE 50MCG/NASAL SPRAY 16GM BOTTLE. NS SCH (11:37)
[2016-11-28 13:04] LABS: BILIRUBIN,URINE NEGATIVE (NEG); GLUCOSE,URINE NEGATIVE (NEG); NITRITE,URINE NEGATIVE (NEG); PROTEIN,URINE NEGATIVE (NEG-TRACE); UROBILINOGEN,URINE 0.2 mg/dL (0.2 mg/dL)
[2016-11-28 13:28] LABS: BACTERIA,URINE MANY /HPF (0-FEW); SQUAMOUS EPITHELIAL CELL,UR MOD /LPF; WBC,URINE >40 /HPF (0-4)
[2016-11-28 15:00] VITALS: BP 103/62
[2016-11-28 19:00] VITALS: BP 86/53
[2016-11-28 22:27] VITALS: BP 112/73
[2016-11-29 01:14] LABS: UR PROTEIN RD 28.8 mg/dL (Not Estab.)
[2016-11-29 03:00] VITALS: BP 83/41
[2016-11-29 07:00] VITALS: BP 106/60
[2016-11-29 07:10] LABS: ALBUMIN 2.5 g/dL (3.4-5.0); CALCIUM 6.5 mg/dL (8.5-10.1); CREATININE 2.2 mg/dL (0.6-1.0); GFR 22.3; PHOSPHORUS 4.3 mg/dL (2.6-4.7); POTASSIUM 4.6 mmol/L (3.5-5.1)
[2016-11-29] MEDS: LOPERAMIDE 2 MG CAPSULE PO SCH (07:42)
[2016-11-29] MEDS: amLODIPine BESYLATE 10 MG TABLET PO SCH (07:42)
[2016-11-29] MEDS: FLUTICASONE 50MCG/NASAL SPRAY 16GM BOTTLE. NS SCH (07:43)
[2016-11-29 11:00] VITALS: BP 89/48
[2016-11-29] MEDS ORDERED: IV NORMAL SALINE 500ML BAG 500 ML IV PRN (11:45)
--- NOTE | 2016-11-29 11:53 | PDOC ---
SUBJECTIVE ROS KEYONNA/ ? ATN Feeling much better today CVS: no Orthopnea, no CP RESP: no SOB, no WILEY GI: no Nausea, no Vomiting : no Dysuria, no Urgency OBJECTIVE Vital Signs Vital Signs Date Time Temp Pulse Resp B/P Pulse Ox O2 Delivery O2 Flow Rate FiO2 11/29/16 11:00 97.9 80 18 89/48 97 Room Air 97.9 I & 0 Intake and Output 11/29/16 07:00 Intake Total 1054.5333 ml Balance 1054.5333 ml Intake Oral 900 ml IV Total 154.5333 ml # Voids 3 UO is not well recorded PHYSICAL EXAM Physical Exam General Appearance: Awake Alert Oriented x 3 In no obvious Distress Eyes: VIsion Unchanged Conjunctiva Normal EN: No EN Drainage Mucous Memb. moist Neck: no JVD min JVP Supple no Thyromegaly CVS: S1 S2 ? Murmur No Gallop No Rub no Edema Resp: no Rales no Rhonchi no Acc. Muscle use GI: BS hypoactive NO Bruit non Tender Non Distended : no CVA tenderness; no Suprapubic Tenderness SKIN: no visible Rashes Breast Exam deferred Mu.Sk: Adequate ROM no Muscle Atrophy Heme: Unable to palpate Obvious LAD no palp Splenomegaly NEURO: Good Strength and Tone Cranial Nerves II - XII grossly intact; ? hyperesthesia overlying antoine area Psych: not Depressed today no Active hallucination Assessment & Plan ARF/ ? ATN: (possible etios incldue VMN, NSAIDs and ATN) CT abd is -ve for Obst due to stones. UO is not recorded but pt and RN report some UO. Jair was low so IVF will be contd. Current fluid and E-lyte status does not necessitate emergent need for dialysis. Will re-evaluate for dialysis in the am ? CKD III at baseline : Based on Us report and Previous Creat of 1.8-2.3 in the past (07/2016) - If UO is OK we may not need further HD. Hypocalcemia - start Calcitriol and Vit D; anticipate some correction after IV Mag replacement, IV CaCl2 x 1 ^PTH - as above GNR UTI - await c and S; Proteinuria - < 1gm for now, ? reval As OP Microscopic Hematuria (min RBCs) await CK, ? need for Urine Myoglobin, Has h/o stones sev WAGMet Acidosis - better now after 2 rounds of HD and IVF with Bicarb, Lactate was WNL but pt reportedly was/ is not eating much hence Starvation Ketosis may have been the etio Anemia: adequate Hughes; so start Epogen Transfuse as needed. HTN: Current BP meds reviewed. See orders for changes. Low Mag - IVF prn Mag as ordered Discussed Plan of Care and prognosis etc. at length with family. COMMENT/RELEVANT DATA Meds Current Medications Medications (Trade) Dose Ordered Sig/Rebecca Start Time Stop Time Status Last Admin Dose Admin Acetaminophen (Tylenol) 500 mg 1X PRN PRN 11/28/16 08:30 11/29/16 08:29 DC Acetaminophen 650 mg 650 mg PRN Q4HRS PRN 11/26/16 20:45 11/27/16 20:44 DC Albumin Human (Albuminar) 200 ml @ 200 mls/hr 1X PRN PRN 11/28/16 08:30 11/28/16 14:29 DC Amlodipine Besylate (Norvasc) 10 mg DAILY08 11/28/16 08:00 11/29/16 07:42 10 MG Diphenhydramine HCl (Benadryl) 25 mg 1X PRN PRN 11/28/16 08:30 11/29/16 08:29 DC Diphenhydramine HCl 25 mg 25 mg 1X PRN PRN 11/28/16 08:30 11/29/16 08:29 DC Fluticasone Propionate (Flonase) 2 spray DAILY 11/27/16 09:00 11/29/16 07:43 2 SPRAY Heparin Sodium (Porcine) (Heparin Sodium) 10,000 unit STK-MED ONCE 11/27/16 15:58 11/27/16 15:59 DC Heparin Sodium/ Sodium Chloride 60 unit 1X ONCE 11/27/16 15:30 11/27/16 15:31 DC 11/27/16 16:28 60 UNIT Info (PHARMACY MONITORING -- do not chart) 1 each PRN DAILY PRN 11/27/16 17:45 Info 1 each 1 each PRN DAILY PRN 11/28/16 08:30 Iohexol (Omnipaque 240 Mg/ml) 30 ml 1X ONCE 11/27/16 13:00 11/27/16 13:01 DC Lidocaine/Sodium Bicarbonate (Buffered Lidocaine 1%) 3 ml 1X ONCE 11/27/16 15:30 11/27/16 15:31 DC 11/27/16 16:28 3 ML Loperamide HCl 2 mg 2 mg DAILY08 11/27/16 08:45 11/29/16 07:42 2 MG Magnesium Sulfate/ Dextrose 50 ml @ 25 mls/hr 1X ONCE 11/28/16 09:30 11/28/16 11:29 DC 11/28/16 18:32 25 MLS/HR Magnesium Sulfate/ Dextrose (Magnesium Sulfate PREMIX 2GM) 50 ml @ 25 mls/hr PRN DAILY PRN 11/27/16 11:30 UNV Ondansetron HCl (Zofran) 4 mg PRN Q6HRS PRN 11/27/16 08:28 11/28/16 15:56 4 MG Potassium Chloride 40 meq 40 meq 1X ONCE 11/28/16 07:00 11/28/16 07:01 DC 11/28/16 11:36 40 MEQ Potassium Phosphate/Sodium Chloride (Potassium Phosphate/Iv Sodium Chloride 0.9% 100ml) 104.5333 ml @ 52.267 m... Q2H 11/28/16 09:30 11/28/16 15:29 DC 11/28/16 20:51 52.267 MLS/HR Sodium Bicarbonate 100 meq/Dextrose 1,100 ml @ 125 mls/hr Q8H48M 11/27/16 06:30 11/27/16 06:35 DC 11/27/16 06:25 125 MLS/HR Sodium Bicarbonate/ Dextrose 1,100 ml @ 125 mls/hr Q8H48M 11/27/16 07:00 11/28/16 09:24 125 MLS/HR Sodium Chloride (Iv Sodium Chloride 0.9% 1000ml Bag) 1,000 ml @ 400 mls/hr Q2H30M PRN 11/28/16 08:28 11/28/16 20:27 DC Lab Laboratory Tests Test 11/28/16 12:15 11/29/16 06:15 Urine Collection Type Unknown Urine Color Yellow Urine Clarity Cloudy Urine pH 6.0 Urine Specific [place] <=1.005 Urine Protein 28.8mg/dL (Not Estab.) Urine Glucose (UA) Negativemg/dL (NEG) Urine Ketones (Stick) Negativemg/dL (NEG) Urine Blood Small (NEG) Urine Nitrite Negative (NEG) Urine Bilirubin Negative (NEG) Urine Urobilinogen Dipstick 0.2mg/dL (0.2 mg/dL) Urine Leukocyte Esterase Large (NEG) Urine RBC 6-10/HPF (0-2) Urine WBC >40/HPF (0-4) Urine Squamous Epithelial Cells Mod/LPF Urine Bacteria Many/HPF (0-FEW) Urine Random Creatinine 37.6mg/dL (Not Estab.) Urine Random Sodium <20mmol/L (Not Estab.) Urine Creatinine 36.5mg/dL (Not Estab.) Urine Protein/Creatinine Ratio 789mg/g creat (0-200) Sodium Level 141mmol/L (136-145) Potassium Level 4.6mmol/L (3.5-5.1) Chloride Level 106mmol/L (98-107) Carbon Dioxide Level 28mmol/L (21-32) Anion Gap 7 (6-14) Blood Urea Nitrogen 18mg/dL (7-20) Creatinine 2.2mg/dL (0.6-1.0) Estimated GFR (Cockcroft-Gault) 22.3 Glucose Level 98mg/dL (70-99) Calcium Level 6.5mg/dL (8.5-10.1) Phosphorus Level 4.3mg/dL (2.6-4.7) Magnesium Level 1.6mg/dL (1.8-2.4) Albumin 2.5g/dL (3.4-5.0) RUTH MONTANO MD Nov 29, 2016 11:53
[2016-11-29] MEDS ORDERED: CALCIUM CHLORIDE 2,000 MG in IV NORMAL SALINE 100ML 100 ML IV ONE (12:30)
--- NOTE | 2016-11-29 12:54 | PDOC ---
Infectious Disease Note ROS ROS GEN: Denies fevers, chills, sweats HEENT: Denies blurred vision, sore throat CV: Denies chest pain RESP: Denies shortness of air, cough GI: Denies n/v/d NEURO: Denies confusion, dizziness MSK: Denies weakness, joint pain/swelling Vital Sign Vital Signs Vital Signs Date Time Temp Pulse Resp B/P Pulse Ox O2 Delivery O2 Flow Rate FiO2 11/29/16 11:00 97.9 80 18 89/48 97 Room Air 97.9 Physical Exam PHYSICAL EXAM GENERAL: NAD, Alert HEENT: PERRL, OC/OP NECK: Supple, no JVD, no LN LUNGS: Clear HEART: S1S2, no gallop, no murmur ABD: Soft, NT, no organomegaly, no rebound EXT: No edema, no cyanosis HEALTHCARE ANALYST: Alert, oriented x 3, no focal neurologic deficit SKIN: No rash IV: ok Labs Lab Laboratory Tests Test 11/29/16 06:15 Sodium Level 141mmol/L (136-145) Potassium Level 4.6mmol/L (3.5-5.1) Chloride Level 106mmol/L (98-107) Carbon Dioxide Level 28mmol/L (21-32) Anion Gap 7 (6-14) Blood Urea Nitrogen 18mg/dL (7-20) Creatinine 2.2mg/dL (0.6-1.0) Estimated GFR (Cockcroft-Gault) 22.3 Glucose Level 98mg/dL (70-99) Calcium Level 6.5mg/dL (8.5-10.1) Phosphorus Level 4.3mg/dL (2.6-4.7) Magnesium Level 1.6mg/dL (1.8-2.4) Albumin 2.5g/dL (3.4-5.0) Objective Assessment fever Ecoli - UTI d/w micro 11/26 KEYONNA - on HD PCN allergy ? reaction Plan Plan of Care Begin Rocephin F/u labs and cults Thank you # [id number] RAMÍREZ RIUZ MD Nov 29, 2016 12:54
[2016-11-29] MEDS: CALCITRIOL 0.25 MCG CAPSULE. PO SCH (12:56)
[2016-11-29] MEDS: ERGOCALCIFEROL (VITAMIN D2) 50,000 UNIT CAPSULE. PO SCH (12:56)
[2016-11-29] MEDS: IV NORMAL SALINE 1000ML BAG 1,000 ML IV SCH (12:56)
[2016-11-29] MEDS: MAGNESIUM SULFATE 2GM 50 ML IV PRN (12:57)
[2016-11-29 15:00] VITALS: BP 111/63
--- NOTE | 2016-11-29 15:11 | PDOC ---
PROGRESS NOTES Chief Complaint Chief Complaint 1. ARF on CKD, possibly stage 4-5 based on GFR 2. NEW HD (11/28/16) 3. ANemia of CKD 3. HTN, controlled 4. GAP metabolic acidosis 5. Urinary incontinence 6. Gen weakness sec to above History of Present Illness History of Present Illness s/p HD urine output now better Some generalized weakness Renal panel daily PT/OT - she feels better Vitals Vitals Vital Signs Date Time Temp Pulse Resp B/P Pulse Ox O2 Delivery O2 Flow Rate FiO2 11/29/16 11:00 97.9 80 18 89/48 97 Room Air 97.9 Physical Exam General: Alert, Oriented X3, Cooperative, No acute distress Lungs: Clear Abdomen: Normal bowel sounds, Soft, No tenderness, No hepatosplenomegaly, No masses Extremities: No clubbing, No cyanosis, No edema, Normal pulses, No tenderness/ swelling Skin: No rashes, No breakdown, No significant lesion Labs LABS Laboratory Tests Test 11/29/16 06:15 Sodium Level 141mmol/L (136-145) Potassium Level 4.6mmol/L (3.5-5.1) Chloride Level 106mmol/L (98-107) Carbon Dioxide Level 28mmol/L (21-32) Anion Gap 7 (6-14) Blood Urea Nitrogen 18mg/dL (7-20) Creatinine 2.2mg/dL (0.6-1.0) Estimated GFR (Cockcroft-Gault) 22.3 Glucose Level 98mg/dL (70-99) Calcium Level 6.5mg/dL (8.5-10.1) Phosphorus Level 4.3mg/dL (2.6-4.7) Magnesium Level 1.6mg/dL (1.8-2.4) Albumin 2.5g/dL (3.4-5.0) Review of Systems Review of Systems no nv,d,. Assessment and Plan Assessmemt and Plan Problems Medical Problems: (1) Acute on chronic renal failure Status: Acute (2) Hypocalcemia Status: Acute (3) Hypomagnesemia Status: Acute (4) Metabolic encephalopathy Status: Acute (5) Normocytic anemia Status: Acute Problems: Comment Review of Relevant I have reviewed the following items yoel (where applicable) has been applied. Labs Laboratory Tests Test 11/28/16 05:24 11/28/16 12:15 11/29/16 06:15 Hemoglobin 8.4g/dL (12.0-15.5) Sodium Level 143mmol/L (136-145) 141mmol/L (136-145) Potassium Level 2.6mmol/L (3.5-5.1) 4.6mmol/L (3.5-5.1) Chloride Level 105mmol/L (98-107) 106mmol/L (98-107) Carbon Dioxide Level 30mmol/L (21-32) 28mmol/L (21-32) Anion Gap 8 (6-14) 7 (6-14) Blood Urea Nitrogen 27mg/dL (7-20) 18mg/dL (7-20) Creatinine 2.0mg/dL (0.6-1.0) 2.2mg/dL (0.6-1.0) Estimated GFR (Cockcroft-Gault) 24.9 22.3 Glucose Level 96mg/dL (70-99) 98mg/dL (70-99) Calcium Level 6.8mg/dL (8.5-10.1) 6.5mg/dL (8.5-10.1) Phosphorus Level 2.4mg/dL (2.6-4.7) 4.3mg/dL (2.6-4.7) Magnesium Level 1.1mg/dL (1.8-2.4) 1.6mg/dL (1.8-2.4) Albumin 2.7g/dL (3.4-5.0) 2.5g/dL (3.4-5.0) Urine Collection Type Unknown Urine Color Yellow Urine Clarity Cloudy Urine pH 6.0 Urine Specific Briscoe <=1.005 Urine Protein 28.8mg/dL (Not Estab.) Urine Glucose (UA) Negativemg/dL (NEG) Urine Ketones (Stick) Negativemg/dL (NEG) Urine Blood Small (NEG) Urine Nitrite Negative (NEG) Urine Bilirubin Negative (NEG) Urine Urobilinogen Dipstick 0.2mg/dL (0.2 mg/dL) Urine Leukocyte Esterase Large (NEG) Urine RBC 6-10/HPF (0-2) Urine WBC >40/HPF (0-4) Urine Squamous Epithelial Cells Mod/LPF Urine Bacteria Many/HPF (0-FEW) Urine Random Creatinine 37.6mg/dL (Not Estab.) Urine Random Sodium <20mmol/L (Not Estab.) Urine Creatinine 36.5mg/dL (Not Estab.) Urine Protein/Creatinine Ratio 789mg/g creat (0-200) Laboratory Tests Test 11/29/16 06:15 Sodium Level 141mmol/L (136-145) Potassium Level 4.6mmol/L (3.5-5.1) Chloride Level 106mmol/L (98-107) Carbon Dioxide Level 28mmol/L (21-32) Anion Gap 7 (6-14) Blood Urea Nitrogen 18mg/dL (7-20) Creatinine 2.2mg/dL (0.6-1.0) Estimated GFR (Cockcroft-Gault) 22.3 Glucose Level 98mg/dL (70-99) Calcium Level 6.5mg/dL (8.5-10.1) Phosphorus Level 4.3mg/dL (2.6-4.7) Magnesium Level 1.6mg/dL (1.8-2.4) Albumin 2.5g/dL (3.4-5.0) Microbiology 11/28/16 Urine Culture - Preliminary, Resulted 11/28/16 Urine Culture Result 1 (OLAMIDE) - Preliminary, Resulted Medications Current Medications Sodium Chloride (Iv Sodium Chloride 0.9% 1000ml Bag) 1,000 ml @ 100 mls/hr 1X ONCE IV Last administered on 11/26/16 19:38; Start 11/26/16 at 19:30; Stop at 05:29; Status DC Ondansetron HCl 4 mg 4 mg PRN Q8HRS PRN IV NAUSEA/VOMITING; Start 11/26/16 at 20:45; Stop 11/27/16 at 08:29; Status DC Sodium Chloride (Iv Sodium Chloride 0.9% 1000ml Bag) 1,000 ml @ 125 mls/hr Q8H IV Last administered on 11/27/16 04:53; Start 11/26/16 at 20:31; Stop at 06:39; Status DC Acetaminophen 650 mg 650 mg PRN Q4HRS PRN PO FEVER; Start 11/26/16 at 20:45; Stop 11/27/16 at 20:44; Status DC Sodium Bicarbonate 100 meq/Dextrose 1,100 ml @ 125 mls/hr Q8H48M IV Last administered on 11/27/16 06:25; Start 11/27/16 at 06:30; Stop 11/27/16 at 06:35 ; Status DC Sodium Bicarbonate/ Dextrose 1,100 ml @ 125 mls/hr Q8H48M IV Last administered on 11/28/16 09:24; Start 11/27/16 at 07:00; Stop 11/29/16 at 11:42 ; Status DC Ondansetron HCl (Zofran) 4 mg PRN Q6HRS PRN IV NAUSEA/VOMITING Last administered on 11/28/16 15:56; Start 11/27/16 at 08:28 Amlodipine Besylate (Norvasc) 10 mg DAILY08 PO Last administered on 11/29/16 07:42; Start 11/28/16 at 08:00 Fluticasone Propionate (Flonase) 2 spray DAILY NS Last administered on 07:43; Start 11/27/16 at 09:00 Loperamide HCl 2 mg 2 mg DAILY08 PO Last administered on 11/29/16 07:42; Start 11/27/16 at 08:45 Magnesium Sulfate/ Dextrose 50 ml @ 25 mls/hr PRN DAILY PRN IV for Mag < 1.7 on am labs Last administered on 11/29/16 12:57; Start 11/27/16 at 11:30 Magnesium Sulfate/ Dextrose (Magnesium Sulfate PREMIX 2GM) 50 ml @ 25 mls/hr PRN DAILY PRN IV for Mag < 1.7 on am labs; Start 11/27/16 at 11:30; Status UNV Iohexol (Omnipaque 240 Mg/ml) 30 ml 1X ONCE PO ; Start 11/27/16 at 13:00; Stop 11/27/16 at 13:01; Status DC Lidocaine/Sodium Bicarbonate (Buffered Lidocaine 1%) 3 ml 1X ONCE IJ Last administered on 11/27/16 16:28; Start 11/27/16 at 15:30; Stop 11/27/16 at 15:31 ; Status DC Heparin Sodium/ Sodium Chloride 60 unit 1X ONCE IV Last administered on 16:28; Start 11/27/16 at 15:30; Stop 11/27/16 at 15:31; Status DC Heparin Sodium (Porcine) (Heparin Sodium) 2,500 unit 1X ONCE INT CAT Last administered on 11/27/16t 16:29; Start 11/27/16 at 15:30; Stop 11/27/16 at 15:31 ; Status DC Heparin Sodium (Porcine) 97106 unit 10,000 unit STK-MED ONCE .ROUTE ; Start at 15:58; Stop 11/27/16 at 15:59; Status DC Sodium Chloride 1,000 ml @ 1,000 mls/hr PRN Q1HR PRN IV hypotension; Start at 17:38 Albumin Human (Albuminar) 200 ml @ 200 mls/hr 1X PRN PRN IV Hypotension; Start 11/27/16 at 17:45; Stop 11/27/16 at 23:44; Status DC Info (PHARMACY MONITORING -- do not chart) 1 each PRN DAILY PRN MC SEE COMMENTS ; Start 11/27/16 at 17:45; Status Cancel Acetaminophen (Tylenol) 650 mg PRN Q6HRS PRN PO HEADACHE; Start 11/27/16 at 23: 00 Potassium Chloride 40 meq 40 meq 1X ONCE PO Last administered on 11/28/16t 11: 36; Start 11/28/16 at 07:00; Stop 11/28/16 at 07:01; Status DC Sodium Chloride 1,000 ml @ 1,000 mls/hr Q1H PRN IV hypotension; Start 11/28/16 at 08:28; Stop 11/28/16 at 14:27; Status DC Albumin Human (Albuminar) 200 ml @ 200 mls/hr 1X PRN PRN IV Hypotension; Start 11/28/16 at 08:30; Stop 11/28/16 at 14:29; Status DC Acetaminophen (Tylenol) 500 mg 1X PRN PRN PO MILD PAIN / TEMP; Start 11/28/16 at 08:30; Stop 11/29/16 at 08:29; Status DC Diphenhydramine HCl (Benadryl) 25 mg 1X PRN PRN IV ITCHING; Start 11/28/16 at 08:30; Stop 11/29/16 at 08:29; Status DC Diphenhydramine HCl 25 mg 25 mg 1X PRN PRN IV ITCHING; Start 11/28/16 at 08:30 ; Stop 11/29/16 at 08:29; Status DC Sodium Chloride (Iv Sodium Chloride 0.9% 1000ml Bag) 1,000 ml @ 400 mls/hr Q2H30M PRN IV PATENCY; Start 11/28/16 at 08:28; Stop 11/28/16 at 20:27; Status DC Info 1 each 1 each PRN DAILY PRN MC SEE COMMENTS; Start 11/28/16 at 08:30 Magnesium Sulfate/ Dextrose 50 ml @ 25 mls/hr 1X ONCE IV Last administered on 11/28/16 18:32; Start 11/28/16 at 09:30; Stop 11/28/16 at 11:29; Status DC Potassium Phosphate 13.6 mmol/Sodium Chloride 104.5333 ml @ 52.267 m... Q2H IV Last administered on 11/28/16 20:51; Start 11/28/16 at 09:30; Stop 11/28/16 at 15:29; Status DC Sodium Chloride 500 ml @ 0 mls/hr PRN QID PRN IV UO< 30cc/hr over previous 6hrs ; Start 11/29/16 at 11:45 Sodium Chloride (Iv Sodium Chloride 0.9% 1000ml Bag) 1,000 ml @ 125 mls/hr Q8H IV Last administered on 11/29/16 12:56; Start 11/29/16 at 11:45 Calcitriol (Rocaltrol) 0.25 mcg DAILY PO Last administered on 11/29/16 12:56; Start 11/29/16 at 12:00 Ergocalciferol 03009 unit 50,000 unit WEEKLY PO Last administered on 11/29/16 12:56; Start 11/29/16 at 12:00; Stop 03/07/17 at 09:01 Calcium Chloride/ Sodium Chloride (Iv Sodium Chloride 0.9% 100ml) 120 ml @ 240 mls/hr 1X ONCE IV ; Start 11/29/16 at 12:30; Stop 11/29/16 at 12:59; Status DC Darbepoetin Jono 60 mcg 60 mcg WEEKLYHS SQ ; Start 11/29/16 at 21:00 Ceftriaxone Sodium/Sodium Chloride (Rocephin/Iv Sodium Chloride 0.9% 50ml) 50 ml @ 100 mls/hr Q24H IV ; Start 11/29/16 at 14:00 Active Scripts Active Reported Flovent 50MCG Diskus (Fluticasone Propionate) 50 Mcg Disk.w.dev 50 Mcg IH BID Imodium A-D (Loperamide Hcl) 1 Mg/7.5 Ml Liquid 2 Mg PO DAILY08 Norvasc (Amlodipine Besylate) 10 Mg Tablet 10 Mg PO DAILY08 Vitals/I & O Vital Sign - Last 24 Hours 11/28/16 11/28/16 11/28/16 11/29/16 19:00 20:00 22:27 03:00 Temp 99.1 98.1 98.8 99.1 98.1 98.8 Pulse 80 78 58 Resp 20 20 20 B/P 86/53 112/73 83/41 Pulse Ox 97 98 95 O2 Delivery Room Air Room Air Room Air Room Air 11/29/16 11/29/16 11/29/16 07:00 07:42 11:00 Temp 97.9 97.9 97.9 97.9 Pulse 68 68 80 Resp 20 18 B/P 106/60 106/60 89/48 Pulse Ox 100 97 O2 Delivery Room Air Room Air Intake and Output 11/28/16 11/28/16 11/29/16 15:00 23:00 07:00 Intake Total 900 ml 154.5333 ml Balance 900 ml 154.5333 ml JONY PRIEST MD Nov 29, 2016 15:11
[2016-11-29 19:00] VITALS: BP 116/69
[2016-11-29] MEDS: DARBEPOETIN ALFA 60 MCG/0.3 ML DISP.SYRIN. SQ SCH (20:44)
[2016-11-29 23:13] VITALS: BP 118/72
[2016-11-30] MEDS: IV NORMAL SALINE 1000ML BAG 1,000 ML IV SCH ×3 (00:27→22:54)
[2016-11-30 03:38] VITALS: BP 131/74
[2016-11-30 06:49] LABS: ALBUMIN 2.4 g/dL (3.4-5.0); CALCIUM 7.9 mg/dL (8.5-10.1); CREATININE 2.5 mg/dL (0.6-1.0); GFR 19.2; MAGNESIUM 2.2 mg/dL (1.8-2.4); PHOSPHORUS 4.1 mg/dL (2.6-4.7); POTASSIUM 4.4 mmol/L (3.5-5.1)
[2016-11-30 07:05] VITALS: BP 114/66
--- NOTE | 2016-11-30 10:05 | PDOC ---
SUBJECTIVE ROS KEYONNA/ CKD III Doign and feeling better overall CVS: no Orthopnea, no CP RESP: no SOB, no WILEY GI: no Nausea, no Vomiting : no Dysuria, no Urgency OBJECTIVE Vital Signs Vital Signs Date Time Temp Pulse Resp B/P Pulse Ox O2 Delivery O2 Flow Rate FiO2 11/30/16 07:05 98.2 68 18 114/66 96 Room Air 98.2 I & 0 Intake and Output 11/30/16 07:00 Intake Total 3809 ml Output Total 1720 ml Balance 2089 ml Intake Oral 1120 ml IV Total 2689 ml Output Urine Total 1720 ml # Bowel Movements 1 PHYSICAL EXAM Physical Exam General Appearance: Awake Alert Oriented x 3 In no obvious Distress Eyes: VIsion Unchanged Conjunctiva Normal EN: No EN Drainage Mucous Memb. moist Neck: no JVD min JVP Supple no Thyromegaly CVS: S1 S2 ? Murmur No Gallop No Rub no Edema Resp: no Rales no Rhonchi no Acc. Muscle use GI: BS hypoactive NO Bruit non Tender Non Distended : no CVA tenderness; no Suprapubic Tenderness Assessment & Plan ARF/ ? ATN: (possible etios incldue VMN, NSAIDs and ATN) CT abd is -ve for Obst due to stones, ? Pyelonephritis and AIn cannot be ruled out although not seen on CT. UO is much better as recorded .ct IVF for 24hrs and watch trend of Creat. Current fluid and E-lyte status does not necessitate emergent need for dialysis. Will re-evaluate for dialysis in the am ? CKD III at baseline : Based on Us report and Previous Creat of 1.8-2.3 in the past (07/2016) -we may not need further HD. Hypocalcemia - start Calcitriol and Vit D; anticipate some correction after IV Mag replacement, better after IV CaCl2 yest ^PTH - as above E.Coli UTI - on rocephin per ID. ? pyelo OA Proteinuria - < 1gm for now, ? reval As OP Microscopic Hematuria (min RBCs) appears marisol improving sev WAGMet Acidosis -resolved Anemia: adequate [place]; so start Epogen Transfuse as needed. HTN: Current BP meds reviewed. See orders for changes. Low Mag - better after IVF prn Mag as ordered Discussed Plan of Care and prognosis etc. at length with family. COMMENT/RELEVANT DATA Meds Current Medications Medications (Trade) Dose Ordered Sig/Rebecca Start Time Stop Time Status Last Admin Dose Admin Acetaminophen (Tylenol) 500 mg 1X PRN PRN 11/28/16 08:30 11/29/16 08:29 DC Acetaminophen 650 mg 650 mg PRN Q4HRS PRN 11/26/16 20:45 11/27/16 20:44 DC Albumin Human (Albuminar) 200 ml @ 200 mls/hr 1X PRN PRN 11/28/16 08:30 11/28/16 14:29 DC Amlodipine Besylate (Norvasc) 10 mg DAILY08 11/28/16 08:00 11/29/16 07:42 10 MG Calcitriol (Rocaltrol) 0.25 mcg DAILY 11/29/16 12:00 11/29/16 12:56 0.25 MCG Calcium Chloride/ Sodium Chloride (Iv Sodium Chloride 0.9% 100ml) 120 ml @ 240 mls/hr 1X ONCE 11/29/16 12:30 11/29/16 12:59 DC 11/29/16 15:34 240 MLS/HR Ceftriaxone Sodium/Sodium Chloride (Rocephin/Iv Sodium Chloride 0.9% 50ml) 50 ml @ 100 mls/hr Q24H 11/29/16 14:00 11/29/16 16:21 100 MLS/HR Darbepoetin Jono 60 mcg 60 mcg WEEKLYHS 11/29/16 21:00 11/29/16 20:44 60 MCG Diphenhydramine HCl (Benadryl) 25 mg 1X PRN PRN 11/28/16 08:30 11/29/16 08:29 DC Ergocalciferol 24044 unit 50,000 unit WEEKLY 11/29/16 12:00 03/07/17 09:01 11/29/16 12:56 50,000 UNIT Fluticasone Propionate (Flonase) 2 spray DAILY 11/27/16 09:00 11/29/16 07:43 2 SPRAY Heparin Sodium (Porcine) (Heparin Sodium) 10,000 unit STK-MED ONCE 11/27/16 15:58 11/27/16 15:59 DC Heparin Sodium/ Sodium Chloride 60 unit 1X ONCE 11/27/16 15:30 11/27/16 15:31 DC 11/27/16 16:28 60 UNIT Info (PHARMACY MONITORING -- do not chart) 1 each PRN DAILY PRN 11/27/16 17:45 Cancel Info 1 each 1 each PRN DAILY PRN 11/28/16 08:30 Iohexol (Omnipaque 240 Mg/ml) 30 ml 1X ONCE 11/27/16 13:00 11/27/16 13:01 DC Lidocaine/Sodium Bicarbonate (Buffered Lidocaine 1%) 3 ml 1X ONCE 11/27/16 15:30 11/27/16 15:31 DC 11/27/16 16:28 3 ML Loperamide HCl 2 mg 2 mg DAILY08 11/27/16 08:45 11/29/16 07:42 2 MG Magnesium Sulfate/ Dextrose 50 ml @ 25 mls/hr 1X ONCE 11/28/16 09:30 11/28/16 11:29 DC 11/28/16 18:32 25 MLS/HR Magnesium Sulfate/ Dextrose (Magnesium Sulfate PREMIX 2GM) 50 ml @ 25 mls/hr PRN DAILY PRN 11/27/16 11:30 UNV Ondansetron HCl (Zofran) 4 mg PRN Q6HRS PRN 11/27/16 08:28 11/28/16 15:56 4 MG Potassium Chloride 40 meq 40 meq 1X ONCE 11/28/16 07:00 11/28/16 07:01 DC 11/28/16 11:36 40 MEQ Potassium Phosphate 13.6 mmol/Sodium Chloride 104.5333 ml @ 52.267 m... Q2H 11/28/16 09:30 11/28/16 15:29 DC 11/28/16 20:51 52.267 MLS/HR Sodium Bicarbonate 100 meq/Dextrose 1,100 ml @ 125 mls/hr Q8H48M 11/27/16 06:30 11/27/16 06:35 DC 11/27/16 06:25 125 MLS/HR Sodium Bicarbonate/ Dextrose 1,100 ml @ 125 mls/hr Q8H48M 11/27/16 07:00 11/29/16 11:42 DC 11/28/16 09:24 125 MLS/HR Sodium Chloride (Iv Sodium Chloride 0.9% 1000ml Bag) 1,000 ml @ 125 mls/hr Q8H 11/29/16 11:45 11/30/16 00:27 125 MLS/HR Lab Laboratory Tests Test 11/30/16 05:50 Sodium Level 143mmol/L (136-145) Potassium Level 4.4mmol/L (3.5-5.1) Chloride Level 109mmol/L (98-107) Carbon Dioxide Level 25mmol/L (21-32) Anion Gap 9 (6-14) Blood Urea Nitrogen 28mg/dL (7-20) Creatinine 2.5mg/dL (0.6-1.0) Estimated GFR (Cockcroft-Gault) 19.2 Glucose Level 90mg/dL (70-99) Calcium Level 7.9mg/dL (8.5-10.1) Phosphorus Level 4.1mg/dL (2.6-4.7) Magnesium Level 2.2mg/dL (1.8-2.4) Albumin 2.4g/dL (3.4-5.0) RUTH MONTANO MD Nov 30, 2016 10:05
[2016-11-30] MEDS: CALCITRIOL 0.25 MCG CAPSULE. PO SCH (10:12)
[2016-11-30] MEDS: FLUTICASONE 50MCG/NASAL SPRAY 16GM BOTTLE. NS SCH (10:12)
[2016-11-30] MEDS: amLODIPine BESYLATE 10 MG TABLET PO SCH (10:14)
[2016-11-30] MEDS: LOPERAMIDE 2 MG CAPSULE PO SCH (10:14)
[2016-11-30 11:00] VITALS: BP 103/57
--- NOTE | 2016-11-30 11:09 | PDOC ---
Infectious Disease Note Subjective Subjective Feeling better. A little nausea/sweats still at times ROS ROS GEN: Denies fevers, chills HEENT: Denies blurred vision, sore throat CV: Denies chest pain RESP: Denies shortness of air, cough GI: Denies v/d NEURO: Denies confusion, dizziness MSK: Denies weakness, joint pain/swelling Vital Sign Vital Signs Vital Signs Date Time Temp Pulse Resp B/P Pulse Ox O2 Delivery O2 Flow Rate FiO2 11/30/16 10:14 68 114/66 11/30/16 07:05 98.2 18 96 Room Air 98.2 Physical Exam PHYSICAL EXAM GENERAL: NAD, Alert. Looks well. Has her make up on HEENT: PERRL, OC/OP - clear NECK: Supple, no JVD, no LN LUNGS: Clear HEART: S1S2, no gallop, no murmur ABD: Soft, NT, no organomegaly, no rebound EXT: No edema, no cyanosis BENCH CARPENTER: Alert, oriented x 3, no focal neurologic deficit SKIN: No rash IV: HD cath Labs Lab Laboratory Tests Test 11/30/16 05:50 Sodium Level 143mmol/L (136-145) Potassium Level 4.4mmol/L (3.5-5.1) Chloride Level 109mmol/L (98-107) Carbon Dioxide Level 25mmol/L (21-32) Anion Gap 9 (6-14) Blood Urea Nitrogen 28mg/dL (7-20) Creatinine 2.5mg/dL (0.6-1.0) Estimated GFR (Cockcroft-Gault) 19.2 Glucose Level 90mg/dL (70-99) Calcium Level 7.9mg/dL (8.5-10.1) Phosphorus Level 4.1mg/dL (2.6-4.7) Magnesium Level 2.2mg/dL (1.8-2.4) Albumin 2.4g/dL (3.4-5.0) Micro Escherichia coli Greater than 100,000 colony forming units per mL ANTIMICROBIAL SUSCEPTIBILITY Final Comment S = Susceptible; I = Intermediate; R = Resistant P = Positive; N = Negative MICS are expressed in micrograms per mL Antibiotic RSLT#1 RSLT#2 RSLT#3 RSLT#4 Amoxicillin/Clavulanic Acid I Ampicillin R Cefepime S Ceftriaxone S Cefuroxime S Cephalothin R Ciprofloxacin S Ertapenem S Gentamicin S Imipenem S Levofloxacin S Nitrofurantoin S Piperacillin R Tetracycline S Tobramycin S Trimethoprim/Sulfa S Performed at: [facility] Objective Assessment fever - better Ecoli - UTI d/w micro 11/26 KEYONNA - on HD PCN allergy ? reaction Plan Plan of Care Cont Rocephin change to po 12/01 F/u labs and cults RAMÍREZ RUIZ MD Nov 30, 2016 11:08
--- NOTE | 2016-11-30 12:06 | PDOC ---
PROGRESS NOTES Chief Complaint Chief Complaint 1. ARF on CKD, possibly stage 4 or -5 2. NEW HD (11/28/16) but now doing well off, better UO 3. Anemia of CKD 3. HTN, controlled 4. GAP metabolic acidosis 5. Urinary incontinence 6. Gen weakness - acquired History of Present Illness History of Present Illness feels a little better str improved urine output now better Some generalized weakness Renal panel daily, check Hgb in AM, PO iron and B12 PT/OT - Vitals Vitals Vital Signs Date Time Temp Pulse Resp B/P Pulse Ox O2 Delivery O2 Flow Rate FiO2 11/30/16 10:14 68 114/66 11/30/16 08:10 Room Air 11/30/16 07:05 98.2 18 96 98.2 Physical Exam General: Alert, Oriented X3, Cooperative, No acute distress Lungs: Clear Abdomen: Normal bowel sounds, Soft, No tenderness, No hepatosplenomegaly, No masses Extremities: No clubbing, No cyanosis, No edema, Normal pulses, No tenderness/ swelling Skin: No rashes, No breakdown, No significant lesion Labs LABS Laboratory Tests Test 11/30/16 05:50 Sodium Level 143mmol/L (136-145) Potassium Level 4.4mmol/L (3.5-5.1) Chloride Level 109mmol/L (98-107) Carbon Dioxide Level 25mmol/L (21-32) Anion Gap 9 (6-14) Blood Urea Nitrogen 28mg/dL (7-20) Creatinine 2.5mg/dL (0.6-1.0) Estimated GFR (Cockcroft-Gault) 19.2 Glucose Level 90mg/dL (70-99) Calcium Level 7.9mg/dL (8.5-10.1) Phosphorus Level 4.1mg/dL (2.6-4.7) Magnesium Level 2.2mg/dL (1.8-2.4) Albumin 2.4g/dL (3.4-5.0) Review of Systems Review of Systems no n.v.d Assessment and Plan Assessmemt and Plan Problems Medical Problems: (1) Acute on chronic renal failure Status: Acute (2) Hypocalcemia Status: Acute (3) Hypomagnesemia Status: Acute (4) Metabolic encephalopathy Status: Acute (5) Normocytic anemia Status: Acute Problems: Comment Review of Relevant I have reviewed the following items yoel (where applicable) has been applied. Labs Laboratory Tests Test 11/28/16 12:15 11/29/16 06:15 11/30/16 05:50 Urine Collection Type Unknown Urine Color Yellow Urine Clarity Cloudy Urine pH 6.0 Urine Specific Rudd <=1.005 Urine Protein 28.8mg/dL (Not Estab.) Urine Glucose (UA) Negativemg/dL (NEG) Urine Ketones (Stick) Negativemg/dL (NEG) Urine Blood Small (NEG) Urine Nitrite Negative (NEG) Urine Bilirubin Negative (NEG) Urine Urobilinogen Dipstick 0.2mg/dL (0.2 mg/dL) Urine Leukocyte Esterase Large (NEG) Urine RBC 6-10/HPF (0-2) Urine WBC >40/HPF (0-4) Urine Squamous Epithelial Cells Mod/LPF Urine Bacteria Many/HPF (0-FEW) Urine Random Creatinine 37.6mg/dL (Not Estab.) Urine Random Sodium <20mmol/L (Not Estab.) Urine Creatinine 36.5mg/dL (Not Estab.) Urine Protein/Creatinine Ratio 789mg/g creat (0-200) Sodium Level 141mmol/L (136-145) 143mmol/L (136-145) Potassium Level 4.6mmol/L (3.5-5.1) 4.4mmol/L (3.5-5.1) Chloride Level 106mmol/L (98-107) 109mmol/L (98-107) Carbon Dioxide Level 28mmol/L (21-32) 25mmol/L (21-32) Anion Gap 7 (6-14) 9 (6-14) Blood Urea Nitrogen 18mg/dL (7-20) 28mg/dL (7-20) Creatinine 2.2mg/dL (0.6-1.0) 2.5mg/dL (0.6-1.0) Estimated GFR (Cockcroft-Gault) 22.3 19.2 Glucose Level 98mg/dL (70-99) 90mg/dL (70-99) Calcium Level 6.5mg/dL (8.5-10.1) 7.9mg/dL (8.5-10.1) Phosphorus Level 4.3mg/dL (2.6-4.7) 4.1mg/dL (2.6-4.7) Magnesium Level 1.6mg/dL (1.8-2.4) 2.2mg/dL (1.8-2.4) Albumin 2.5g/dL (3.4-5.0) 2.4g/dL (3.4-5.0) Cortisol AM Sample 6.8ug/dL (6.2-19.4) Laboratory Tests Test 11/30/16 05:50 Sodium Level 143mmol/L (136-145) Potassium Level 4.4mmol/L (3.5-5.1) Chloride Level 109mmol/L (98-107) Carbon Dioxide Level 25mmol/L (21-32) Anion Gap 9 (6-14) Blood Urea Nitrogen 28mg/dL (7-20) Creatinine 2.5mg/dL (0.6-1.0) Estimated GFR (Cockcroft-Gault) 19.2 Glucose Level 90mg/dL (70-99) Calcium Level 7.9mg/dL (8.5-10.1) Phosphorus Level 4.1mg/dL (2.6-4.7) Magnesium Level 2.2mg/dL (1.8-2.4) Albumin 2.4g/dL (3.4-5.0) Microbiology 11/28/16 Urine Culture - Preliminary, Resulted 11/28/16 Urine Culture Result 1 (OLAMIDE) - Preliminary, Resulted Medications Current Medications Sodium Chloride (Iv Sodium Chloride 0.9% 1000ml Bag) 1,000 ml @ 100 mls/hr 1X ONCE IV Last administered on 11/26/16 19:38; Start 11/26/16 at 19:30; Stop at 05:29; Status DC Ondansetron HCl 4 mg 4 mg PRN Q8HRS PRN IV NAUSEA/VOMITING; Start 11/26/16 at 20:45; Stop 11/27/16 at 08:29; Status DC Sodium Chloride (Iv Sodium Chloride 0.9% 1000ml Bag) 1,000 ml @ 125 mls/hr Q8H IV Last administered on 11/27/16 04:53; Start 11/26/16 at 20:31; Stop at 06:39; Status DC Acetaminophen 650 mg 650 mg PRN Q4HRS PRN PO FEVER; Start 11/26/16 at 20:45; Stop 11/27/16 at 20:44; Status DC Sodium Bicarbonate 100 meq/Dextrose 1,100 ml @ 125 mls/hr Q8H48M IV Last administered on 11/27/16 06:25; Start 11/27/16 at 06:30; Stop 11/27/16 at 06:35 ; Status DC Sodium Bicarbonate/ Dextrose 1,100 ml @ 125 mls/hr Q8H48M IV Last administered on 11/28/16 09:24; Start 11/27/16 at 07:00; Stop 11/29/16 at 11:42 ; Status DC Ondansetron HCl (Zofran) 4 mg PRN Q6HRS PRN IV NAUSEA/VOMITING Last administered on 11/28/16 15:56; Start 11/27/16 at 08:28 Amlodipine Besylate (Norvasc) 10 mg DAILY08 PO Last administered on 11/30/16 10:14; Start 11/28/16 at 08:00 Fluticasone Propionate (Flonase) 2 spray DAILY NS Last administered on 10:12; Start 11/27/16 at 09:00 Loperamide HCl 2 mg 2 mg DAILY08 PO Last administered on 11/30/16 10:14; Start 11/27/16 at 08:45 Magnesium Sulfate/ Dextrose 50 ml @ 25 mls/hr PRN DAILY PRN IV for Mag < 1.7 on am labs Last administered on 11/29/16 12:57; Start 11/27/16 at 11:30 Magnesium Sulfate/ Dextrose (Magnesium Sulfate PREMIX 2GM) 50 ml @ 25 mls/hr PRN DAILY PRN IV for Mag < 1.7 on am labs; Start 11/27/16 at 11:30; Status UNV Iohexol (Omnipaque 240 Mg/ml) 30 ml 1X ONCE PO ; Start 11/27/16 at 13:00; Stop 11/27/16 at 13:01; Status DC Lidocaine/Sodium Bicarbonate (Buffered Lidocaine 1%) 3 ml 1X ONCE IJ Last administered on 11/27/16 16:28; Start 11/27/16 at 15:30; Stop 11/27/16 at 15:31 ; Status DC Heparin Sodium/ Sodium Chloride 60 unit 1X ONCE IV Last administered on 16:28; Start 11/27/16 at 15:30; Stop 11/27/16 at 15:31; Status DC Heparin Sodium (Porcine) (Heparin Sodium) 2,500 unit 1X ONCE INT CAT Last administered on 11/27/16 16:29; Start 11/27/16 at 15:30; Stop 11/27/16 at 15:31 ; Status DC Heparin Sodium (Porcine) 87436 unit 10,000 unit STK-MED ONCE .ROUTE ; Start at 15:58; Stop 11/27/16 at 15:59; Status DC Sodium Chloride 1,000 ml @ 1,000 mls/hr PRN Q1HR PRN IV hypotension; Start at 17:38 Albumin Human (Albuminar) 200 ml @ 200 mls/hr 1X PRN PRN IV Hypotension; Start 11/27/16 at 17:45; Stop 11/27/16 at 23:44; Status DC Info (PHARMACY MONITORING -- do not chart) 1 each PRN DAILY PRN MC SEE COMMENTS ; Start 11/27/16 at 17:45; Status Cancel Acetaminophen (Tylenol) 650 mg PRN Q6HRS PRN PO HEADACHE; Start 11/27/16 at 23: 00 Potassium Chloride 40 meq 40 meq 1X ONCE PO Last administered on 11/28/16t 11: 36; Start 11/28/16 at 07:00; Stop 11/28/16 at 07:01; Status DC Sodium Chloride 1,000 ml @ 1,000 mls/hr Q1H PRN IV hypotension; Start 11/28/16 at 08:28; Stop 11/28/16 at 14:27; Status DC Albumin Human (Albuminar) 200 ml @ 200 mls/hr 1X PRN PRN IV Hypotension; Start 11/28/16 at 08:30; Stop 11/28/16 at 14:29; Status DC Acetaminophen (Tylenol) 500 mg 1X PRN PRN PO MILD PAIN / TEMP; Start 11/28/16 at 08:30; Stop 11/29/16 at 08:29; Status DC Diphenhydramine HCl (Benadryl) 25 mg 1X PRN PRN IV ITCHING; Start 11/28/16 at 08:30; Stop 11/29/16 at 08:29; Status DC Diphenhydramine HCl 25 mg 25 mg 1X PRN PRN IV ITCHING; Start 11/28/16 at 08:30 ; Stop 11/29/16 at 08:29; Status DC Sodium Chloride (Iv Sodium Chloride 0.9% 1000ml Bag) 1,000 ml @ 400 mls/hr Q2H30M PRN IV PATENCY; Start 11/28/16 at 08:28; Stop 11/28/16 at 20:27; Status DC Info 1 each 1 each PRN DAILY PRN MC SEE COMMENTS; Start 11/28/16 at 08:30 Magnesium Sulfate/ Dextrose 50 ml @ 25 mls/hr 1X ONCE IV Last administered on 11/28/16 18:32; Start 11/28/16 at 09:30; Stop 11/28/16 at 11:29; Status DC Potassium Phosphate 13.6 mmol/Sodium Chloride 104.5333 ml @ 52.267 m... Q2H IV Last administered on 11/28/16 20:51; Start 11/28/16 at 09:30; Stop 11/28/16 at 15:29; Status DC Sodium Chloride 500 ml @ 0 mls/hr PRN QID PRN IV UO< 30cc/hr over previous 6hrs ; Start 11/29/16 at 11:45 Sodium Chloride (Iv Sodium Chloride 0.9% 1000ml Bag) 1,000 ml @ 125 mls/hr Q8H IV Last administered on 11/30/16 00:27; Start 11/29/16 at 11:45 Calcitriol (Rocaltrol) 0.25 mcg DAILY PO Last administered on 11/30/16 10:12; Start 11/29/16 at 12:00 Ergocalciferol 78920 unit 50,000 unit WEEKLY PO Last administered on 11/29/16 12:56; Start 11/29/16 at 12:00; Stop 03/07/17 at 09:01 Calcium Chloride/ Sodium Chloride (Iv Sodium Chloride 0.9% 100ml) 120 ml @ 240 mls/hr 1X ONCE IV Last administered on 11/29/16 15:34; Start 11/29/16 at 12: 30; Stop 11/29/16 at 12:59; Status DC Darbepoetin Jono 60 mcg 60 mcg WEEKLYHS SQ Last administered on 11/29/16 20:44 ; Start 11/29/16 at 21:00 Ceftriaxone Sodium/Sodium Chloride (Rocephin/Iv Sodium Chloride 0.9% 50ml) 50 ml @ 100 mls/hr Q24H IV Last administered on 11/29/16 16:21; Start 11/29/16 at 14:00 Active Scripts Active Reported Flovent 50MCG Diskus (Fluticasone Propionate) 50 Mcg Disk.w.dev 50 Mcg IH BID Imodium A-D (Loperamide Hcl) 1 Mg/7.5 Ml Liquid 2 Mg PO DAILY08 Norvasc (Amlodipine Besylate) 10 Mg Tablet 10 Mg PO DAILY08 Vitals/I & O Vital Sign - Last 24 Hours 11/29/16 11/29/16 11/29/16 11/29/16 15:00 19:00 20:20 23:13 Temp 98.9 97.9 98.2 98.9 97.9 98.2 Pulse 67 68 71 Resp B/P 111/63 116/69 118/72 Pulse Ox 96 96 96 O2 Delivery Room Air Room Air Room Air Room Air 11/30/16 11/30/16 11/30/16 11/30/16 03:38 07:05 08:10 10:14 Temp 97.8 98.2 97.8 98.2 Pulse 63 68 68 Resp B/P 131/74 114/66 114/66 Pulse Ox 98 96 O2 Delivery Room Air Room Air Room Air Intake and Output 11/29/16 11/29/16 11/30/16 15:00 23:00 07:00 Intake Total 480 ml 240 ml 3089 ml Output Total 720 ml 1000 ml Balance 480 ml -480 ml 2089 ml JONY PRIEST MD Nov 30, 2016 12:06
[2016-11-30] MEDS: IRON POLYSACCHARIDE COMPLEX 150 MG CAPSULE PO SCH (12:53)
[2016-11-30] MEDS: VITAMIN B12,B9,B6 COMPLEX 1 TABLET. PO SCH (12:53)
[2016-11-30 15:03] VITALS: BP 101/61
--- NOTE | 2016-11-30 17:07 | CONS ---
DATE OF CONSULTATION: 11/29/2016 THE PATIENT'S ROOM: 574 REQUESTING PHYSICIAN: ____ REASON FOR CONSULTATION: UTI, sepsis. HISTORY OF PRESENT ILLNESS: The patient is a pleasant 66-year-old -[place] female who lives by herself and has been complaining of weakness ongoing for several weeks. She has had some complications with confusion and decreasing oral intake according to the notes. She has no family around. She has been taking a fair amount of ibuprofen recently. She presented to [facility] and was found to have a BUN of 87 and creatinine of 3.5. Urinalysis was obtained on 2 separate occasions; leukocyte esterase positive. She had a fair amount of white blood cells, [id number] amount of squamous cells, but seems consistent with urinary tract infection. Abdominal ultrasound performed on the was negative for any hydronephrosis or evidence of a mass. CT scan of the abdomen and pelvis showed no acute finding. She had had low grade fevers, most recently is 99.9 axillary. Currently, the patient is sitting in the chair. She states she is feeling some better. She remembers having some fevers and chills and sweats prior to coming in. She has no gross sinus issues, sore throat or cough. No gross chest pain. She does not remember having any symptoms and states she had a UTI which has been years ago. No cramps or diarrhea. She states her appetite is somewhat improving. PAST MEDICAL HISTORY: Positive for previous heart murmur, hypertension, asthma, sleep apnea, hiatal hernia, abdominal hernia repair with bowel resection, colon cancer with partial colectomy, cholecystectomy, obesity, chronic diarrhea, gastroesophageal reflux disease, cervical cancer with history of hysterectomy, history of kidney stones in the past with lithotripsy, cystoscopy, chronic arthritis, right radial fracture with alcohol use. REVIEW OF SYSTEMS: Otherwise negative except for mentioned above. ALLERGIES: LISTED PENICILLIN. SHE STATES THAT IT HAPPENED A LONG TIME AGO. SHE CANNOT REMEMBER THE REACTION TO IT. SHE IS UNCERTAIN IF SHE HAS EVER HAD ANY AMOXICILLIN. SOCIAL HISTORY: She lives by herself. Occasional alcohol. No tobacco. FAMILY HISTORY: Positive for some kidney illness in her family. CURRENT MEDICATIONS: Include; normal saline, mag sulfate, Tylenol, Rocaltrol, Aricept, ____, Imodium. Other meds are available and have been reviewed in the chart. PHYSICAL EXAMINATION: VITAL SIGNS: T-max has been 99.9, currently 97.9, pulse 80, respirations 18, blood pressure 89/48, and satting 97% on room air. CONSTITUTIONAL: She is very pleasant, sitting in a chair. She is cooperative. She is in no acute distress. HEENT: Pupils are equal and reactive. Normal conjunctivae. Oral cavity, oropharynx is clear. NECK: Supple, no JVD. LUNGS: Clear to auscultation bilaterally. IV sites without signs of complications. HEART: S1, S2 with I-III/ murmur. ABDOMEN: Mildly distended, soft, nontender, nondistended. Positive bowel sounds. EXTREMITIES: Without clubbing, cyanosis. Trace edema. SKIN: Warm to touch without signs of rash. NEUROLOGIC: She is nonfocal, but she is forgetful. PSYCHIATRIC: Affect is pleasant. LABORATORY DATA: White count 7, hemoglobin 9.7, platelets of 127, neutrophils 71, lymphs are 17, creatinine of 2.2, glucose 98. Urinalysis reviewed in the history of present illness. I did call and discuss with microbiology. She has E. coli in her urine and sensitivities are pending. Hepatitis B screen is all negative. CT scan and ultrasound reviewed in history of present illness. IMPRESSION: 1. Fever. 2. Escherichia coli urinary tract infection, discussed with microbiology as mentioned above. 3. Acute kidney injury, on hemodialysis which she has received x 2. 4. Penicillin allergy with questionable reaction. RECOMMENDATIONS: For now begin Rocephin. Follow up on labs and cultures. Thank you for referring the patient, you have any questions, please do not hesitate to contact me. RAMÍREZ RUIZ MD DR: EVELINE/lacey JOB#: [id number] / [id number]
[2016-11-30 19:00] VITALS: BP 97/56
[2016-11-30] MEDS: ACETAMINOPHEN 325 MG TABLET. PO PRN (22:58)
[2016-11-30 23:00] VITALS: BP 122/73
[2016-12-01 03:00] VITALS: BP 115/66
[2016-12-01 04:52] LABS: BASO % 1 % (0-3); EOS % 2 % (0-3); HEMATOCRIT 24.5 % (36.0-47.0); HEMOGLOBIN 7.6 g/dL (12.0-15.5); LYMPH # 1.3 x10^3/uL (1.0-4.8); LYMPH % 22 % (24-48); MEAN CORPUSCULAR HEMOGLOBIN 29 pg (25-35); MEAN CORPUSCULAR HGB CONC 31 g/dL (31-37); MEAN CORPUSCULAR VOLUME 92 fL (79-100); MONO % 8 % (0-9); NEUT % 67 % (31-73); PLATELET COUNT 90 x10^3/uL (140-400); RED BLOOD COUNT 2.65 x10^6/uL (3.50-5.40); RED CELL DISTRIBUTION WIDTH 14.9 % (11.5-14.5); WHITE BLOOD COUNT 6.1 x10^3/uL (4.0-11.0)
[2016-12-01 05:20] LABS: ALBUMIN 2.2 g/dL (3.4-5.0); CALCIUM 7.9 mg/dL (8.5-10.1); CREATININE 2.8 mg/dL (0.6-1.0); GFR 16.9
[2016-12-01 05:26] LABS: MAGNESIUM 1.8 mg/dL (1.8-2.4)
[2016-12-01 07:00] VITALS: BP 162/83
--- NOTE | 2016-12-01 09:12 | PDOC ---
Infectious Disease Note Subjective Subjective Feeling better. ROS ROS GEN: Denies fevers, chills, sweats HEENT: Denies blurred vision, sore throat CV: Denies chest pain RESP: Denies shortness of air, cough GI: Denies n/v/d NEURO: Denies confusion, dizziness MSK: Denies weakness, joint pain/swelling Vital Sign Vital Signs Vital Signs Date Time Temp Pulse Resp B/P Pulse Ox O2 Delivery O2 Flow Rate FiO2 12/01/16 07:00 97.8 71 18 162/83 96 Room Air 97.8 Physical Exam PHYSICAL EXAM GENERAL: NAD, Alert. Looks well. 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 MANAGER: Alert, oriented x 3, no focal neurologic deficit SKIN: No rash IV: HD cath Labs Lab Laboratory Tests Test 12/01/16 03:10 White Blood Count 6.1x10^3/uL (4.0-11.0) Red Blood Count 2.65x10^6/uL (3.50-5.40) Hemoglobin 7.6g/dL (12.0-15.5) Hematocrit 24.5% (36.0-47.0) Mean Corpuscular Volume 92fL (79-100) Mean Corpuscular Hemoglobin 29pg (25-35) Mean Corpuscular Hemoglobin Concent 31g/dL (31-37) Red Cell Distribution Width 14.9% (11.5-14.5) Platelet Count 90x10^3/uL (140-400) Neutrophils (%) (Auto) 67% (31-73) Lymphocytes (%) (Auto) 22% (24-48) Monocytes (%) (Auto) 8% (0-9) Eosinophils (%) (Auto) 2% (0-3) Basophils (%) (Auto) 1% (0-3) Neutrophils # (Auto) 4.1x10^3uL (1.8-7.7) Lymphocytes # (Auto) 1.3x10^3/uL (1.0-4.8) Monocytes # (Auto) 0.5x10^3/uL (0.0-1.1) Eosinophils # (Auto) 0.1x10^3/uL (0.0-0.7) Basophils # (Auto) 0.0x10^3/uL (0.0-0.2) Sodium Level 141mmol/L (136-145) Potassium Level 4.0mmol/L (3.5-5.1) Chloride Level 111mmol/L (98-107) Carbon Dioxide Level 22mmol/L (21-32) Anion Gap 8 (6-14) Blood Urea Nitrogen 30mg/dL (7-20) Creatinine 2.8mg/dL (0.6-1.0) Estimated GFR (Cockcroft-Gault) 16.9 Glucose Level 88mg/dL (70-99) Calcium Level 7.9mg/dL (8.5-10.1) Phosphorus Level 4.0mg/dL (2.6-4.7) Magnesium Level 1.8mg/dL (1.8-2.4) Albumin 2.2g/dL (3.4-5.0) Micro Escherichia coli Greater than 100,000 colony forming units per mL ANTIMICROBIAL SUSCEPTIBILITY Final Comment S = Susceptible; I = Intermediate; R = Resistant P = Positive; N = Negative MICS are expressed in micrograms per mL Antibiotic RSLT#1 RSLT#2 RSLT#3 RSLT#4 Amoxicillin/Clavulanic Acid I Ampicillin R Cefepime S Ceftriaxone S Cefuroxime S Cephalothin R Ciprofloxacin S Ertapenem S Gentamicin S Imipenem S Levofloxacin S Nitrofurantoin S Piperacillin R Tetracycline S Tobramycin S Trimethoprim/Sulfa S Performed at: [facility] - [facility] Objective Assessment fever - better Ecoli - UTI d/w micro 11/26 KEYONNA - on HD PCN allergy ? reaction Plan Plan of Care Cont Rocephin today Change to po Cefpoxdoxime 12/02 for 4 days ID to sign off RAMÍREZ RUIZ MD Dec 01, 2016 09:12
[2016-12-01] MEDS: LOPERAMIDE 2 MG CAPSULE PO SCH (09:28)
[2016-12-01] MEDS: VITAMIN B12,B9,B6 COMPLEX 1 TABLET. PO SCH (09:28)
[2016-12-01] MEDS: CALCITRIOL 0.25 MCG CAPSULE. PO SCH (09:28)
[2016-12-01] MEDS: IRON POLYSACCHARIDE COMPLEX 150 MG CAPSULE PO SCH (09:28)
[2016-12-01] MEDS: amLODIPine BESYLATE 10 MG TABLET PO SCH (09:28)
[2016-12-01] MEDS: FLUTICASONE 50MCG/NASAL SPRAY 16GM BOTTLE. NS SCH (09:29)
[2016-12-01 10:30] VITALS: BP 175/89
--- NOTE | 2016-12-01 12:15 | PDOC ---
SUBJECTIVE ROS KEYONNA/ATN ---? ESRD doign and feeling better overall CVS: no Orthopnea, no CP RESP: no SOB, no WILEY GI: no Nausea, no Vomiting : no Dysuria, no Urgency OBJECTIVE Vital Signs Vital Signs Date Time Temp Pulse Resp B/P Pulse Ox O2 Delivery O2 Flow Rate FiO2 12/01/16 10:30 97.8 79 18 175/89 96 Room Air 97.8 I & 0 Intake and Output 12/01/16 07:00 Intake Total 1480 ml Balance 1480 ml Intake Oral 480 ml IV Total 1000 ml # Voids 4 PHYSICAL EXAM Physical Exam General Appearance: Awake Alert Oriented x 3 In no obvious Distress Eyes: VIsion Unchanged Conjunctiva Normal EN: No EN Drainage Mucous Memb. moist Neck: no JVD min JVP Supple no Thyromegaly CVS: S1 S2 ? Murmur No Gallop No Rub no Edema Resp: no Rales no Rhonchi no Acc. Muscle use GI: BS hypoactive NO Bruit non Tender Non Distended : no CVA tenderness; no Suprapubic Tenderness Assessment & Plan ARF/ ? ATN: (possible etios incldue VMN, NSAIDs and ATN) CT abd is -ve for Obst due to stones, ? Pyelonephritis and AIn cannot be ruled out although not seen on CT. UO is much better as recorded .ct IVF for 24hrs and watch trend of Creat. Current fluid and E-lyte status does not necessitate emergent need for dialysis. Will re-evaluate for dialysis in the am ? ESRD cannot be ruled out since basline GFR was in low 20s anyways. ? CKD III at baseline : Based on Us report and Previous Creat of 1.8-2.3 in the past (07/2016) -we may not need further HD. Hypocalcemia - started Calcitriol and Vit D; ^PTH - as above E.Coli UTI - on rocephin per ID. ? pyelo OA Proteinuria - < 1gm for now, ? reval As OP Microscopic Hematuria (min RBCs) appears marisol improving Anemia: adequate Mono; so start Epogen Transfuse as needed. HTN: Current BP meds reviewed. may need addition of BP meds in am if remains in current range. Discussed Plan of Care and prognosis etc. at length with pt who is willing to proceed with OP HD if needed COMMENT/RELEVANT DATA Meds Current Medications Medications (Trade) Dose Ordered Sig/Rebecca Start Time Stop Time Status Last Admin Dose Admin Acetaminophen (Tylenol) 500 mg 1X PRN PRN 11/28/16 08:30 11/29/16 08:29 DC Acetaminophen 650 mg 650 mg PRN Q4HRS PRN 11/26/16 20:45 11/27/16 20:44 DC Albumin Human (Albuminar) 200 ml @ 200 mls/hr 1X PRN PRN 11/28/16 08:30 11/28/16 14:29 DC Amlodipine Besylate (Norvasc) 10 mg DAILY08 11/28/16 08:00 12/01/16 09:28 10 MG Calcitriol (Rocaltrol) 0.25 mcg DAILY 11/29/16 12:00 12/01/16 09:28 0.25 MCG Calcium Chloride/ Sodium Chloride (Iv Sodium Chloride 0.9% 100ml) 120 ml @ 240 mls/hr 1X ONCE 11/29/16 12:30 11/29/16 12:59 DC 11/29/16 15:34 240 MLS/HR Cefpodoxime Proxetil (Vantin) 200 mg DAILY 12/02/16 09:00 Ceftriaxone Sodium/Sodium Chloride (Rocephin/Iv Sodium Chloride 0.9% 50ml) 50 ml @ 100 mls/hr ONCE ONCE 12/01/16 09:30 12/01/16 09:59 DC Darbepoetin Jono (Aranesp) 60 mcg WEEKLYHS 11/29/16 21:00 11/29/16 20:44 60 MCG Diphenhydramine HCl (Benadryl) 25 mg 1X PRN PRN 11/28/16 08:30 11/29/16 08:29 DC Ergocalciferol 29737 unit 50,000 unit WEEKLY 11/29/16 12:00 03/07/17 09:01 11/29/16 12:56 50,000 UNIT Fluticasone Propionate (Flonase) 2 spray DAILY 11/27/16 09:00 12/01/16 09:29 2 SPRAY Heparin Sodium (Porcine) (Heparin Sodium) 10,000 unit STK-MED ONCE 11/27/16 15:58 11/27/16 15:59 DC Heparin Sodium/ Sodium Chloride 60 unit 1X ONCE 11/27/16 15:30 11/27/16 15:31 DC 11/27/16 16:28 60 UNIT Info (PHARMACY MONITORING -- do not chart) 1 each PRN DAILY PRN 11/27/16 17:45 Cancel Info 1 each 1 each PRN DAILY PRN 11/28/16 08:30 Iohexol (Omnipaque 240 Mg/ml) 30 ml 1X ONCE 11/27/16 13:00 11/27/16 13:01 DC Lidocaine/Sodium Bicarbonate (Buffered Lidocaine 1%) 3 ml 1X ONCE 11/27/16 15:30 11/27/16 15:31 DC 11/27/16 16:28 3 ML Loperamide HCl 2 mg 2 mg DAILY08 11/27/16 08:45 12/01/16 09:28 2 MG Magnesium Sulfate/ Dextrose 50 ml @ 25 mls/hr 1X ONCE 11/28/16 09:30 11/28/16 11:29 DC 11/28/16 18:32 25 MLS/HR Magnesium Sulfate/ Dextrose (Magnesium Sulfate PREMIX 2GM) 50 ml @ 25 mls/hr PRN DAILY PRN 11/27/16 11:30 UNV Ondansetron HCl (Zofran) 4 mg PRN Q6HRS PRN 11/27/16 08:28 11/28/16 15:56 4 MG Polysaccharide Iron Complex (Niferex 150) 150 mg DAILY 11/30/16 12:00 12/01/16 09:28 150 MG Potassium Chloride 40 meq 40 meq 1X ONCE 11/28/16 07:00 11/28/16 07:01 DC 11/28/16 11:36 40 MEQ Potassium Phosphate 13.6 mmol/Sodium Chloride 104.5333 ml @ 52.267 m... Q2H 11/28/16 09:30 11/28/16 15:29 DC 11/28/16 20:51 52.267 MLS/HR Sodium Bicarbonate 100 meq/Dextrose 1,100 ml @ 125 mls/hr Q8H48M 11/27/16 06:30 11/27/16 06:35 DC 11/27/16 06:25 125 MLS/HR Sodium Bicarbonate/ Dextrose 1,100 ml @ 125 mls/hr Q8H48M 11/27/16 07:00 11/29/16 11:42 DC 11/28/16 09:24 125 MLS/HR Sodium Chloride (Iv Sodium Chloride 0.9% 1000ml Bag) 1,000 ml @ 125 mls/hr Q8H 11/29/16 11:45 11/30/16 22:54 125 MLS/HR Vitamin B Complex 1 tab 1 tab DAILY 11/30/16 12:00 12/01/16 09:28 1 TAB Lab Laboratory Tests Test 12/01/16 03:10 White Blood Count 6.1x10^3/uL (4.0-11.0) Red Blood Count 2.65x10^6/uL (3.50-5.40) Hemoglobin 7.6g/dL (12.0-15.5) Hematocrit 24.5% (36.0-47.0) Mean Corpuscular Volume 92fL (79-100) Mean Corpuscular Hemoglobin 29pg (25-35) Mean Corpuscular Hemoglobin Concent 31g/dL (31-37) Red Cell Distribution Width 14.9% (11.5-14.5) Platelet Count 90x10^3/uL (140-400) Neutrophils (%) (Auto) 67% (31-73) Lymphocytes (%) (Auto) 22% (24-48) Monocytes (%) (Auto) 8% (0-9) Eosinophils (%) (Auto) 2% (0-3) Basophils (%) (Auto) 1% (0-3) Neutrophils # (Auto) 4.1x10^3uL (1.8-7.7) Lymphocytes # (Auto) 1.3x10^3/uL (1.0-4.8) Monocytes # (Auto) 0.5x10^3/uL (0.0-1.1) Eosinophils # (Auto) 0.1x10^3/uL (0.0-0.7) Basophils # (Auto) 0.0x10^3/uL (0.0-0.2) Sodium Level 141mmol/L (136-145) Potassium Level 4.0mmol/L (3.5-5.1) Chloride Level 111mmol/L (98-107) Carbon Dioxide Level 22mmol/L (21-32) Anion Gap 8 (6-14) Blood Urea Nitrogen 30mg/dL (7-20) Creatinine 2.8mg/dL (0.6-1.0) Estimated GFR (Cockcroft-Gault) 16.9 Glucose Level 88mg/dL (70-99) Calcium Level 7.9mg/dL (8.5-10.1) Phosphorus Level 4.0mg/dL (2.6-4.7) Magnesium Level 1.8mg/dL (1.8-2.4) Albumin 2.2g/dL (3.4-5.0) RUTH MONTANO MD Dec 01, 2016 12:15
--- NOTE | 2016-12-01 13:30 | PDOC ---
PROGRESS NOTES Chief Complaint Chief Complaint 1. ARF on CKD, possibly stage 4 or -5 2. NEW HD (11/28/16) but now doing well off, better UO 3. Anemia of CKD 3. HTN, controlled 4. GAP metabolic acidosis 5. Urinary incontinence 6. Gen weakness - acquired History of Present Illness History of Present Illness feels a little better renal fxn not improved much UO reported as good she feels well cont IV fluid Renal panel daily, check Hgb in AM, more anemic Vitals Vitals Vital Signs Date Time Temp Pulse Resp B/P Pulse Ox O2 Delivery O2 Flow Rate FiO2 12/01/16 10:30 97.8 79 18 175/89 96 Room Air 97.8 Physical Exam General: Alert, Oriented X3, Cooperative, No acute distress Lungs: Clear Abdomen: Normal bowel sounds, Soft, No tenderness, No hepatosplenomegaly, No masses Extremities: No clubbing, No cyanosis, No edema, Normal pulses, No tenderness/ swelling Skin: No rashes, No breakdown, No significant lesion Labs LABS Laboratory Tests Test 12/01/16 03:10 White Blood Count 6.1x10^3/uL (4.0-11.0) Red Blood Count 2.65x10^6/uL (3.50-5.40) Hemoglobin 7.6g/dL (12.0-15.5) Hematocrit 24.5% (36.0-47.0) Mean Corpuscular Volume 92fL (79-100) Mean Corpuscular Hemoglobin 29pg (25-35) Mean Corpuscular Hemoglobin Concent 31g/dL (31-37) Red Cell Distribution Width 14.9% (11.5-14.5) Platelet Count 90x10^3/uL (140-400) Neutrophils (%) (Auto) 67% (31-73) Lymphocytes (%) (Auto) 22% (24-48) Monocytes (%) (Auto) 8% (0-9) Eosinophils (%) (Auto) 2% (0-3) Basophils (%) (Auto) 1% (0-3) Neutrophils # (Auto) 4.1x10^3uL (1.8-7.7) Lymphocytes # (Auto) 1.3x10^3/uL (1.0-4.8) Monocytes # (Auto) 0.5x10^3/uL (0.0-1.1) Eosinophils # (Auto) 0.1x10^3/uL (0.0-0.7) Basophils # (Auto) 0.0x10^3/uL (0.0-0.2) Sodium Level 141mmol/L (136-145) Potassium Level 4.0mmol/L (3.5-5.1) Chloride Level 111mmol/L (98-107) Carbon Dioxide Level 22mmol/L (21-32) Anion Gap 8 (6-14) Blood Urea Nitrogen 30mg/dL (7-20) Creatinine 2.8mg/dL (0.6-1.0) Estimated GFR (Cockcroft-Gault) 16.9 Glucose Level 88mg/dL (70-99) Calcium Level 7.9mg/dL (8.5-10.1) Phosphorus Level 4.0mg/dL (2.6-4.7) Magnesium Level 1.8mg/dL (1.8-2.4) Albumin 2.2g/dL (3.4-5.0) Assessment and Plan Assessmemt and Plan Problems Medical Problems: (1) Acute on chronic renal failure Status: Acute (2) Hypocalcemia Status: Acute (3) Hypomagnesemia Status: Acute (4) Metabolic encephalopathy Status: Acute (5) Normocytic anemia Status: Acute Problems: Comment Review of Relevant I have reviewed the following items yoel (where applicable) has been applied. Labs Laboratory Tests Test 11/30/16 05:50 12/01/16 03:10 Sodium Level 143mmol/L (136-145) 141mmol/L (136-145) Potassium Level 4.4mmol/L (3.5-5.1) 4.0mmol/L (3.5-5.1) Chloride Level 109mmol/L (98-107) 111mmol/L (98-107) Carbon Dioxide Level 25mmol/L (21-32) 22mmol/L (21-32) Anion Gap 9 (6-14) 8 (6-14) Blood Urea Nitrogen 28mg/dL (7-20) 30mg/dL (7-20) Creatinine 2.5mg/dL (0.6-1.0) 2.8mg/dL (0.6-1.0) Estimated GFR (Cockcroft-Gault) 19.2 16.9 Glucose Level 90mg/dL (70-99) 88mg/dL (70-99) Calcium Level 7.9mg/dL (8.5-10.1) 7.9mg/dL (8.5-10.1) Phosphorus Level 4.1mg/dL (2.6-4.7) 4.0mg/dL (2.6-4.7) Magnesium Level 2.2mg/dL (1.8-2.4) 1.8mg/dL (1.8-2.4) Albumin 2.4g/dL (3.4-5.0) 2.2g/dL (3.4-5.0) White Blood Count 6.1x10^3/uL (4.0-11.0) Red Blood Count 2.65x10^6/uL (3.50-5.40) Hemoglobin 7.6g/dL (12.0-15.5) Hematocrit 24.5% (36.0-47.0) Mean Corpuscular Volume 92fL (79-100) Mean Corpuscular Hemoglobin 29pg (25-35) Mean Corpuscular Hemoglobin Concent 31g/dL (31-37) Red Cell Distribution Width 14.9% (11.5-14.5) Platelet Count 90x10^3/uL (140-400) Neutrophils (%) (Auto) 67% (31-73) Lymphocytes (%) (Auto) 22% (24-48) Monocytes (%) (Auto) 8% (0-9) Eosinophils (%) (Auto) 2% (0-3) Basophils (%) (Auto) 1% (0-3) Neutrophils # (Auto) 4.1x10^3uL (1.8-7.7) Lymphocytes # (Auto) 1.3x10^3/uL (1.0-4.8) Monocytes # (Auto) 0.5x10^3/uL (0.0-1.1) Eosinophils # (Auto) 0.1x10^3/uL (0.0-0.7) Basophils # (Auto) 0.0x10^3/uL (0.0-0.2) Laboratory Tests Test 12/01/16 03:10 White Blood Count 6.1x10^3/uL (4.0-11.0) Red Blood Count 2.65x10^6/uL (3.50-5.40) Hemoglobin 7.6g/dL (12.0-15.5) Hematocrit 24.5% (36.0-47.0) Mean Corpuscular Volume 92fL (79-100) Mean Corpuscular Hemoglobin 29pg (25-35) Mean Corpuscular Hemoglobin Concent 31g/dL (31-37) Red Cell Distribution Width 14.9% (11.5-14.5) Platelet Count 90x10^3/uL (140-400) Neutrophils (%) (Auto) 67% (31-73) Lymphocytes (%) (Auto) 22% (24-48) Monocytes (%) (Auto) 8% (0-9) Eosinophils (%) (Auto) 2% (0-3) Basophils (%) (Auto) 1% (0-3) Neutrophils # (Auto) 4.1x10^3uL (1.8-7.7) Lymphocytes # (Auto) 1.3x10^3/uL (1.0-4.8) Monocytes # (Auto) 0.5x10^3/uL (0.0-1.1) Eosinophils # (Auto) 0.1x10^3/uL (0.0-0.7) Basophils # (Auto) 0.0x10^3/uL (0.0-0.2) Sodium Level 141mmol/L (136-145) Potassium Level 4.0mmol/L (3.5-5.1) Chloride Level 111mmol/L (98-107) Carbon Dioxide Level 22mmol/L (21-32) Anion Gap 8 (6-14) Blood Urea Nitrogen 30mg/dL (7-20) Creatinine 2.8mg/dL (0.6-1.0) Estimated GFR (Cockcroft-Gault) 16.9 Glucose Level 88mg/dL (70-99) Calcium Level 7.9mg/dL (8.5-10.1) Phosphorus Level 4.0mg/dL (2.6-4.7) Magnesium Level 1.8mg/dL (1.8-2.4) Albumin 2.2g/dL (3.4-5.0) Microbiology 11/28/16 Urine Culture - Final, Complete 11/28/16 Urine Culture Result 1 (OLAMIDE) - Final, Complete 11/28/16 Antimicrobic Susceptibility - Final, Complete Medications Current Medications Sodium Chloride (Iv Sodium Chloride 0.9% 1000ml Bag) 1,000 ml @ 100 mls/hr 1X ONCE IV Last administered on 11/26/16 19:38; Start 11/26/16 at 19:30; Stop at 05:29; Status DC Ondansetron HCl 4 mg 4 mg PRN Q8HRS PRN IV NAUSEA/VOMITING; Start 11/26/16 at 20:45; Stop 11/27/16 at 08:29; Status DC Sodium Chloride (Iv Sodium Chloride 0.9% 1000ml Bag) 1,000 ml @ 125 mls/hr Q8H IV Last administered on 11/27/16 04:53; Start 11/26/16 at 20:31; Stop at 06:39; Status DC Acetaminophen 650 mg 650 mg PRN Q4HRS PRN PO FEVER; Start 11/26/16 at 20:45; Stop 11/27/16 at 20:44; Status DC Sodium Bicarbonate 100 meq/Dextrose 1,100 ml @ 125 mls/hr Q8H48M IV Last administered on 11/27/16 06:25; Start 11/27/16 at 06:30; Stop 11/27/16 at 06:35 ; Status DC Sodium Bicarbonate/ Dextrose 1,100 ml @ 125 mls/hr Q8H48M IV Last administered on 11/28/16 09:24; Start 11/27/16 at 07:00; Stop 11/29/16 at 11:42 ; Status DC Ondansetron HCl (Zofran) 4 mg PRN Q6HRS PRN IV NAUSEA/VOMITING Last administered on 11/28/16 15:56; Start 11/27/16 at 08:28 Amlodipine Besylate (Norvasc) 10 mg DAILY08 PO Last administered on 12/01/16 09:28; Start 11/28/16 at 08:00 Fluticasone Propionate (Flonase) 2 spray DAILY NS Last administered on 09:29; Start 11/27/16 at 09:00 Loperamide HCl 2 mg 2 mg DAILY08 PO Last administered on 12/01/16 09:28; Start 11/27/16 at 08:45 Magnesium Sulfate/ Dextrose 50 ml @ 25 mls/hr PRN DAILY PRN IV for Mag < 1.7 on am labs Last administered on 11/29/16 12:57; Start 11/27/16 at 11:30 Magnesium Sulfate/ Dextrose (Magnesium Sulfate PREMIX 2GM) 50 ml @ 25 mls/hr PRN DAILY PRN IV for Mag < 1.7 on am labs; Start 11/27/16 at 11:30; Status UNV Iohexol (Omnipaque 240 Mg/ml) 30 ml 1X ONCE PO ; Start 11/27/16 at 13:00; Stop 11/27/16 at 13:01; Status DC Lidocaine/Sodium Bicarbonate (Buffered Lidocaine 1%) 3 ml 1X ONCE IJ Last administered on 11/27/16 16:28; Start 11/27/16 at 15:30; Stop 11/27/16 at 15:31 ; Status DC Heparin Sodium/ Sodium Chloride 60 unit 1X ONCE IV Last administered on 16:28; Start 11/27/16 at 15:30; Stop 11/27/16 at 15:31; Status DC Heparin Sodium (Porcine) (Heparin Sodium) 2,500 unit 1X ONCE INT CAT Last administered on 11/27/16 16:29; Start 11/27/16 at 15:30; Stop 11/27/16 at 15:31 ; Status DC Heparin Sodium (Porcine) 52245 unit 10,000 unit STK-MED ONCE .ROUTE ; Start at 15:58; Stop 11/27/16 at 15:59; Status DC Sodium Chloride 1,000 ml @ 1,000 mls/hr PRN Q1HR PRN IV hypotension; Start at 17:38; Stop 12/01/16 at 12:17; Status DC Albumin Human (Albuminar) 200 ml @ 200 mls/hr 1X PRN PRN IV Hypotension; Start 11/27/16 at 17:45; Stop 11/27/16 at 23:44; Status DC Info (PHARMACY MONITORING -- do not chart) 1 each PRN DAILY PRN MC SEE COMMENTS ; Start 11/27/16 at 17:45; Status Cancel Acetaminophen (Tylenol) 650 mg PRN Q6HRS PRN PO HEADACHE Last administered on 22:58; Start 11/27/16 at 23:00 Potassium Chloride 40 meq 40 meq 1X ONCE PO Last administered on 11/28/16 11: 36; Start 11/28/16 at 07:00; Stop 11/28/16 at 07:01; Status DC Sodium Chloride 1,000 ml @ 1,000 mls/hr Q1H PRN IV hypotension; Start 11/28/16 at 08:28; Stop 11/28/16 at 14:27; Status DC Albumin Human (Albuminar) 200 ml @ 200 mls/hr 1X PRN PRN IV Hypotension; Start 11/28/16 at 08:30; Stop 11/28/16 at 14:29; Status DC Acetaminophen (Tylenol) 500 mg 1X PRN PRN PO MILD PAIN / TEMP; Start 11/28/16 at 08:30; Stop 11/29/16 at 08:29; Status DC Diphenhydramine HCl (Benadryl) 25 mg 1X PRN PRN IV ITCHING; Start 11/28/16 at 08:30; Stop 11/29/16 at 08:29; Status DC Diphenhydramine HCl 25 mg 25 mg 1X PRN PRN IV ITCHING; Start 11/28/16 at 08:30 ; Stop 11/29/16 at 08:29; Status DC Sodium Chloride (Iv Sodium Chloride 0.9% 1000ml Bag) 1,000 ml @ 400 mls/hr Q2H30M PRN IV PATENCY; Start 11/28/16 at 08:28; Stop 11/28/16 at 20:27; Status DC Info 1 each 1 each PRN DAILY PRN MC SEE COMMENTS; Start 11/28/16 at 08:30 Magnesium Sulfate/ Dextrose 50 ml @ 25 mls/hr 1X ONCE IV Last administered on 11/28/16 18:32; Start 11/28/16 at 09:30; Stop 11/28/16 at 11:29; Status DC Potassium Phosphate 13.6 mmol/Sodium Chloride 104.5333 ml @ 52.267 m... Q2H IV Last administered on 11/28/16 20:51; Start 11/28/16 at 09:30; Stop 11/28/16 at 15:29; Status DC Sodium Chloride 500 ml @ 0 mls/hr PRN QID PRN IV UO< 30cc/hr over previous 6hrs ; Start 11/29/16 at 11:45; Stop 12/01/16 at 12:17; Status DC Sodium Chloride (Iv Sodium Chloride 0.9% 1000ml Bag) 1,000 ml @ 125 mls/hr Q8H IV Last administered on 11/30/16 22:54; Start 11/29/16 at 11:45; Stop at 12:17; Status DC Calcitriol (Rocaltrol) 0.25 mcg DAILY PO Last administered on 12/01/16 09:28; Start 11/29/16 at 12:00 Ergocalciferol 32608 unit 50,000 unit WEEKLY PO Last administered on 11/29/16 12:56; Start 11/29/16 at 12:00; Stop 03/07/17 at 09:01 Calcium Chloride/ Sodium Chloride (Iv Sodium Chloride 0.9% 100ml) 120 ml @ 240 mls/hr 1X ONCE IV Last administered on 11/29/16 15:34; Start 11/29/16 at 12: 30; Stop 11/29/16 at 12:59; Status DC Darbepoetin Jono 60 mcg 60 mcg WEEKLYHS SQ Last administered on 11/29/16 20:44 ; Start 11/29/16 at 21:00 Ceftriaxone Sodium/Sodium Chloride (Rocephin/Iv Sodium Chloride 0.9% 50ml) 50 ml @ 100 mls/hr Q24H IV Last administered on 11/29/16 16:21; Start 11/29/16 at 14:00; Stop 12/01/16 at 09:13; Status DC Polysaccharide Iron Complex (Niferex 150) 150 mg DAILY PO Last administered on 12/01/16 09:28; Start 11/30/16 at 12:00 Vitamin B Complex 1 tab 1 tab DAILY PO Last administered on 12/01/16 09:28; Start 11/30/16 at 12:00 Ceftriaxone Sodium/Sodium Chloride (Rocephin/Iv Sodium Chloride 0.9% 50ml) 50 ml @ 100 mls/hr ONCE ONCE IV Last administered on 12/01/16 12:24; Start at 09:30; Stop 12/01/16 at 09:59; Status DC Cefpodoxime Proxetil (Vantin) 200 mg DAILY PO ; Start 12/02/16 at 09:00 Active Scripts Active Reported Flovent 50MCG Diskus (Fluticasone Propionate) 50 Mcg Disk.w.dev 50 Mcg IH BID Imodium A-D (Loperamide Hcl) 1 Mg/7.5 Ml Liquid 2 Mg PO DAILY08 Norvasc (Amlodipine Besylate) 10 Mg Tablet 10 Mg PO DAILY08 Vitals/I & O Vital Sign - Last 24 Hours 11/30/16 11/30/16 11/30/16 11/30/16 15:03 19:00 20:05 23:00 Temp 98.6 98.6 98.1 98.6 98.6 98.1 Pulse 83 76 78 Resp 18 16 16 B/P 101/61 97/56 122/73 Pulse Ox 96 97 96 O2 Delivery Room Air Room Air 12/01/16 12/01/16 12/01/16 12/01/16 03:00 07:00 08:00 09:28 Temp 98.3 97.8 98.3 97.8 Pulse 71 71 71 Resp 16 18 B/P 115/66 162/83 162/83 Pulse Ox 97 96 O2 Delivery Room Air Room Air 12/01/16 10:30 Temp 97.8 97.8 Pulse 79 Resp 18 B/P 175/89 Pulse Ox 96 O2 Delivery Room Air Intake and Output 11/30/16 11/30/16 12/01/16 15:00 23:00 07:00 Intake Total 1120 ml 360 ml Balance 1120 ml 360 ml JONY PRIEST MD Dec 01, 2016 13:30
[2016-12-01 14:43] VITALS: BP_SYST 116; BP_SYST 149; BP_DIAS 69; BP_DIAS 89
[2016-12-01] MEDS: ACETAMINOPHEN 325 MG TABLET. PO PRN (18:05)
[2016-12-01 19:00] VITALS: BP 108/62
[2016-12-01] MEDS: MAG HYDROX/ALUMINUM HYD/SIMETH 30 ML ORAL.SUSP PO PRN (20:40)
[2016-12-01 22:54] VITALS: BP 108/62
[2016-12-02] VITALS (7 sets, daily range): BP systolic 109–154; BP diastolic 63–86
[2016-12-02 05:08] LABS: BASO % 1 % (0-3); EOS % 3 % (0-3); HEMOGLOBIN 8.3 g/dL (12.0-15.5); LYMPH # 1.4 x10^3/uL (1.0-4.8); LYMPH % 22 % (24-48); MEAN CORPUSCULAR HEMOGLOBIN 28 pg (25-35); MEAN CORPUSCULAR HGB CONC 31 g/dL (31-37); MEAN CORPUSCULAR VOLUME 92 fL (79-100); MONO % 7 % (0-9); NEUT % 67 % (31-73); PLATELET COUNT 109 x10^3/uL (140-400); RED BLOOD COUNT 2.94 x10^6/uL (3.50-5.40); RED CELL DISTRIBUTION WIDTH 14.7 % (11.5-14.5); WHITE BLOOD COUNT 6.4 x10^3/uL (4.0-11.0)
[2016-12-02 05:29] LABS: ALBUMIN 2.5 g/dL (3.4-5.0); CALCIUM 8.3 mg/dL (8.5-10.1); CREATININE 2.6 mg/dL (0.6-1.0); GFR 18.4; PHOSPHORUS 4.6 mg/dL (2.6-4.7); POTASSIUM 4.1 mmol/L (3.5-5.1)
[2016-12-02 05:31] LABS: MAGNESIUM 1.7 mg/dL (1.8-2.4); PHOSPHORUS 4.6 mg/dL (2.6-4.7)
--- NOTE | 2016-12-02 08:47 | PDOC ---
PROGRESS NOTES Chief Complaint Chief Complaint 1. ESRD now new HD 2. NEW HD (11/28/16) but now doing well off, better UO 3. Anemia of CKD 3. HTN, controlled 4. GAP metabolic acidosis 5. Urinary incontinence 6. Gen weakness - acquired History of Present Illness History of Present Illness HAving breakfast No issues Crea stable at 2.6 New HD - SW on case PLAN: CPM Will stay thru weekend for SW Sunday outpt HD set up Dw pt and melter caster panel daily Vitals Vitals Vital Signs Date Time Temp Pulse Resp B/P Pulse Ox O2 Delivery O2 Flow Rate FiO2 12/02/16 07:00 99.9 74 14 145/74 96 Room Air 99.9 Physical Exam General: Alert, Oriented X3, Cooperative, No acute distress Lungs: Clear Abdomen: Normal bowel sounds, Soft, No tenderness, No hepatosplenomegaly, No masses Extremities: No clubbing, No cyanosis, No edema, Normal pulses, No tenderness/ swelling Skin: No rashes, No breakdown, No significant lesion Labs LABS Laboratory Tests Test 12/02/16 03:49 White Blood Count 6.4x10^3/uL (4.0-11.0) Red Blood Count 2.94x10^6/uL (3.50-5.40) Hemoglobin 8.3g/dL (12.0-15.5) Hematocrit 27.0% (36.0-47.0) Mean Corpuscular Volume 92fL (79-100) Mean Corpuscular Hemoglobin 28pg (25-35) Mean Corpuscular Hemoglobin Concent 31g/dL (31-37) Red Cell Distribution Width 14.7% (11.5-14.5) Platelet Count 109x10^3/uL (140-400) Neutrophils (%) (Auto) 67% (31-73) Lymphocytes (%) (Auto) 22% (24-48) Monocytes (%) (Auto) 7% (0-9) Eosinophils (%) (Auto) 3% (0-3) Basophils (%) (Auto) 1% (0-3) Neutrophils # (Auto) 4.3x10^3uL (1.8-7.7) Lymphocytes # (Auto) 1.4x10^3/uL (1.0-4.8) Monocytes # (Auto) 0.5x10^3/uL (0.0-1.1) Eosinophils # (Auto) 0.2x10^3/uL (0.0-0.7) Basophils # (Auto) 0.0x10^3/uL (0.0-0.2) Sodium Level 146mmol/L (136-145) Potassium Level 4.1mmol/L (3.5-5.1) Chloride Level 112mmol/L (98-107) Carbon Dioxide Level 23mmol/L (21-32) Anion Gap 11 (6-14) Blood Urea Nitrogen 27mg/dL (7-20) Creatinine 2.6mg/dL (0.6-1.0) Estimated GFR (Cockcroft-Gault) 18.4 Glucose Level 81mg/dL (70-99) Calcium Level 8.3mg/dL (8.5-10.1) Phosphorus Level 4.6mg/dL (2.6-4.7) Magnesium Level 1.7mg/dL (1.8-2.4) Albumin 2.5g/dL (3.4-5.0) Review of Systems Review of Systems no SOA< cp, n,.v,d Assessment and Plan Assessmemt and Plan Problems Medical Problems: (1) Acute on chronic renal failure Status: Acute (2) Hypocalcemia Status: Acute (3) Hypomagnesemia Status: Acute (4) Metabolic encephalopathy Status: Acute (5) Normocytic anemia Status: Acute Problems: Comment Review of Relevant I have reviewed the following items yoel (where applicable) has been applied. Labs Laboratory Tests Test 12/01/16 03:10 12/02/16 03:49 White Blood Count 6.1x10^3/uL (4.0-11.0) 6.4x10^3/uL (4.0-11.0) Red Blood Count 2.65x10^6/uL (3.50-5.40) 2.94x10^6/uL (3.50-5.40) Hemoglobin 7.6g/dL (12.0-15.5) 8.3g/dL (12.0-15.5) Hematocrit 24.5% (36.0-47.0) 27.0% (36.0-47.0) Mean Corpuscular Volume 92fL (79-100) 92fL (79-100) Mean Corpuscular Hemoglobin 29pg (25-35) 28pg (25-35) Mean Corpuscular Hemoglobin Concent 31g/dL (31-37) 31g/dL (31-37) Red Cell Distribution Width 14.9% (11.5-14.5) 14.7% (11.5-14.5) Platelet Count 90x10^3/uL (140-400) 109x10^3/uL (140-400) Neutrophils (%) (Auto) 67% (31-73) 67% (31-73) Lymphocytes (%) (Auto) 22% (24-48) 22% (24-48) Monocytes (%) (Auto) 8% (0-9) 7% (0-9) Eosinophils (%) (Auto) 2% (0-3) 3% (0-3) Basophils (%) (Auto) 1% (0-3) 1% (0-3) Neutrophils # (Auto) 4.1x10^3uL (1.8-7.7) 4.3x10^3uL (1.8-7.7) Lymphocytes # (Auto) 1.3x10^3/uL (1.0-4.8) 1.4x10^3/uL (1.0-4.8) Monocytes # (Auto) 0.5x10^3/uL (0.0-1.1) 0.5x10^3/uL (0.0-1.1) Eosinophils # (Auto) 0.1x10^3/uL (0.0-0.7) 0.2x10^3/uL (0.0-0.7) Basophils # (Auto) 0.0x10^3/uL (0.0-0.2) 0.0x10^3/uL (0.0-0.2) Sodium Level 141mmol/L (136-145) 146mmol/L (136-145) Potassium Level 4.0mmol/L (3.5-5.1) 4.1mmol/L (3.5-5.1) Chloride Level 111mmol/L (98-107) 112mmol/L (98-107) Carbon Dioxide Level 22mmol/L (21-32) 23mmol/L (21-32) Anion Gap 8 (6-14) 11 (6-14) Blood Urea Nitrogen 30mg/dL (7-20) 27mg/dL (7-20) Creatinine 2.8mg/dL (0.6-1.0) 2.6mg/dL (0.6-1.0) Estimated GFR (Cockcroft-Gault) 16.9 18.4 Glucose Level 88mg/dL (70-99) 81mg/dL (70-99) Calcium Level 7.9mg/dL (8.5-10.1) 8.3mg/dL (8.5-10.1) Phosphorus Level 4.0mg/dL (2.6-4.7) 4.6mg/dL (2.6-4.7) Magnesium Level 1.8mg/dL (1.8-2.4) 1.7mg/dL (1.8-2.4) Albumin 2.2g/dL (3.4-5.0) 2.5g/dL (3.4-5.0) Laboratory Tests Test 12/02/16 03:49 White Blood Count 6.4x10^3/uL (4.0-11.0) Red Blood Count 2.94x10^6/uL (3.50-5.40) Hemoglobin 8.3g/dL (12.0-15.5) Hematocrit 27.0% (36.0-47.0) Mean Corpuscular Volume 92fL (79-100) Mean Corpuscular Hemoglobin 28pg (25-35) Mean Corpuscular Hemoglobin Concent 31g/dL (31-37) Red Cell Distribution Width 14.7% (11.5-14.5) Platelet Count 109x10^3/uL (140-400) Neutrophils (%) (Auto) 67% (31-73) Lymphocytes (%) (Auto) 22% (24-48) Monocytes (%) (Auto) 7% (0-9) Eosinophils (%) (Auto) 3% (0-3) Basophils (%) (Auto) 1% (0-3) Neutrophils # (Auto) 4.3x10^3uL (1.8-7.7) Lymphocytes # (Auto) 1.4x10^3/uL (1.0-4.8) Monocytes # (Auto) 0.5x10^3/uL (0.0-1.1) Eosinophils # (Auto) 0.2x10^3/uL (0.0-0.7) Basophils # (Auto) 0.0x10^3/uL (0.0-0.2) Sodium Level 146mmol/L (136-145) Potassium Level 4.1mmol/L (3.5-5.1) Chloride Level 112mmol/L (98-107) Carbon Dioxide Level 23mmol/L (21-32) Anion Gap 11 (6-14) Blood Urea Nitrogen 27mg/dL (7-20) Creatinine 2.6mg/dL (0.6-1.0) Estimated GFR (Cockcroft-Gault) 18.4 Glucose Level 81mg/dL (70-99) Calcium Level 8.3mg/dL (8.5-10.1) Phosphorus Level 4.6mg/dL (2.6-4.7) Magnesium Level 1.7mg/dL (1.8-2.4) Albumin 2.5g/dL (3.4-5.0) Microbiology 11/28/16 Urine Culture - Final, Complete 11/28/16 Urine Culture Result 1 (OLAMIDE) - Final, Complete 11/28/16 Antimicrobic Susceptibility - Final, Complete Medications Current Medications Sodium Chloride (Iv Sodium Chloride 0.9% 1000ml Bag) 1,000 ml @ 100 mls/hr 1X ONCE IV Last administered on 11/26/16 19:38; Start 11/26/16 at 19:30; Stop at 05:29; Status DC Ondansetron HCl 4 mg 4 mg PRN Q8HRS PRN IV NAUSEA/VOMITING; Start 11/26/16 at 20:45; Stop 11/27/16 at 08:29; Status DC Sodium Chloride (Iv Sodium Chloride 0.9% 1000ml Bag) 1,000 ml @ 125 mls/hr Q8H IV Last administered on 11/27/16 04:53; Start 11/26/16 at 20:31; Stop at 06:39; Status DC Acetaminophen 650 mg 650 mg PRN Q4HRS PRN PO FEVER; Start 11/26/16 at 20:45; Stop 11/27/16 at 20:44; Status DC Sodium Bicarbonate 100 meq/Dextrose 1,100 ml @ 125 mls/hr Q8H48M IV Last administered on 11/27/16 06:25; Start 11/27/16 at 06:30; Stop 11/27/16 at 06:35 ; Status DC Sodium Bicarbonate/ Dextrose 1,100 ml @ 125 mls/hr Q8H48M IV Last administered on 11/28/16 09:24; Start 11/27/16 at 07:00; Stop 11/29/16 at 11:42 ; Status DC Ondansetron HCl (Zofran) 4 mg PRN Q6HRS PRN IV NAUSEA/VOMITING Last administered on 11/28/16 15:56; Start 11/27/16 at 08:28 Amlodipine Besylate (Norvasc) 10 mg DAILY08 PO Last administered on 12/01/16 09:28; Start 11/28/16 at 08:00 Fluticasone Propionate (Flonase) 2 spray DAILY NS Last administered on 09:29; Start 11/27/16 at 09:00 Loperamide HCl 2 mg 2 mg DAILY08 PO Last administered on 12/01/16 09:28; Start 11/27/16 at 08:45 Magnesium Sulfate/ Dextrose 50 ml @ 25 mls/hr PRN DAILY PRN IV for Mag < 1.7 on am labs Last administered on 11/29/16 12:57; Start 11/27/16 at 11:30 Magnesium Sulfate/ Dextrose (Magnesium Sulfate PREMIX 2GM) 50 ml @ 25 mls/hr PRN DAILY PRN IV for Mag < 1.7 on am labs; Start 11/27/16 at 11:30; Status UNV Iohexol (Omnipaque 240 Mg/ml) 30 ml 1X ONCE PO ; Start 11/27/16 at 13:00; Stop 11/27/16 at 13:01; Status DC Lidocaine/Sodium Bicarbonate (Buffered Lidocaine 1%) 3 ml 1X ONCE IJ Last administered on 11/27/16 16:28; Start 11/27/16 at 15:30; Stop 11/27/16 at 15:31 ; Status DC Heparin Sodium/ Sodium Chloride 60 unit 1X ONCE IV Last administered on 16:28; Start 11/27/16 at 15:30; Stop 11/27/16 at 15:31; Status DC Heparin Sodium (Porcine) (Heparin Sodium) 2,500 unit 1X ONCE INT CAT Last administered on 11/27/16 16:29; Start 11/27/16 at 15:30; Stop 11/27/16 at 15:31 ; Status DC Heparin Sodium (Porcine) 04035 unit 10,000 unit STK-MED ONCE .ROUTE ; Start at 15:58; Stop 11/27/16 at 15:59; Status DC Sodium Chloride 1,000 ml @ 1,000 mls/hr PRN Q1HR PRN IV hypotension; Start at 17:38; Stop 12/01/16 at 12:17; Status DC Albumin Human (Albuminar) 200 ml @ 200 mls/hr 1X PRN PRN IV Hypotension; Start 11/27/16 at 17:45; Stop 11/27/16 at 23:44; Status DC Info (PHARMACY MONITORING -- do not chart) 1 each PRN DAILY PRN MC SEE COMMENTS ; Start 11/27/16 at 17:45; Status Cancel Acetaminophen (Tylenol) 650 mg PRN Q6HRS PRN PO HEADACHE Last administered on 18:05; Start 11/27/16 at 23:00 Potassium Chloride 40 meq 40 meq 1X ONCE PO Last administered on 11/28/16 11: 36; Start 11/28/16 at 07:00; Stop 11/28/16 at 07:01; Status DC Sodium Chloride 1,000 ml @ 1,000 mls/hr Q1H PRN IV hypotension; Start 11/28/16 at 08:28; Stop 11/28/16 at 14:27; Status DC Albumin Human (Albuminar) 200 ml @ 200 mls/hr 1X PRN PRN IV Hypotension; Start 11/28/16 at 08:30; Stop 11/28/16 at 14:29; Status DC Acetaminophen (Tylenol) 500 mg 1X PRN PRN PO MILD PAIN / TEMP; Start 11/28/16 at 08:30; Stop 11/29/16 at 08:29; Status DC Diphenhydramine HCl (Benadryl) 25 mg 1X PRN PRN IV ITCHING; Start 11/28/16 at 08:30; Stop 11/29/16 at 08:29; Status DC Diphenhydramine HCl 25 mg 25 mg 1X PRN PRN IV ITCHING; Start 11/28/16 at 08:30 ; Stop 11/29/16 at 08:29; Status DC Sodium Chloride (Iv Sodium Chloride 0.9% 1000ml Bag) 1,000 ml @ 400 mls/hr Q2H30M PRN IV PATENCY; Start 11/28/16 at 08:28; Stop 11/28/16 at 20:27; Status DC Info 1 each 1 each PRN DAILY PRN MC SEE COMMENTS; Start 11/28/16 at 08:30 Magnesium Sulfate/ Dextrose 50 ml @ 25 mls/hr 1X ONCE IV Last administered on 11/28/16 18:32; Start 11/28/16 at 09:30; Stop 11/28/16 at 11:29; Status DC Potassium Phosphate 13.6 mmol/Sodium Chloride 104.5333 ml @ 52.267 m... Q2H IV Last administered on 11/28/16 20:51; Start 11/28/16 at 09:30; Stop 11/28/16 at 15:29; Status DC Sodium Chloride 500 ml @ 0 mls/hr PRN QID PRN IV UO< 30cc/hr over previous 6hrs ; Start 11/29/16 at 11:45; Stop 12/01/16 at 12:17; Status DC Sodium Chloride (Iv Sodium Chloride 0.9% 1000ml Bag) 1,000 ml @ 125 mls/hr Q8H IV Last administered on 11/30/16 22:54; Start 11/29/16 at 11:45; Stop at 12:17; Status DC Calcitriol (Rocaltrol) 0.25 mcg DAILY PO Last administered on 12/01/16 09:28; Start 11/29/16 at 12:00 Ergocalciferol 86476 unit 50,000 unit WEEKLY PO Last administered on 11/29/16 12:56; Start 11/29/16 at 12:00; Stop 03/07/17 at 09:01 Calcium Chloride/ Sodium Chloride (Iv Sodium Chloride 0.9% 100ml) 120 ml @ 240 mls/hr 1X ONCE IV Last administered on 11/29/16 15:34; Start 11/29/16 at 12: 30; Stop 11/29/16 at 12:59; Status DC Darbepoetin Jono 60 mcg 60 mcg WEEKLYHS SQ Last administered on 11/29/16 20:44 ; Start 11/29/16 at 21:00 Ceftriaxone Sodium/Sodium Chloride (Rocephin/Iv Sodium Chloride 0.9% 50ml) 50 ml @ 100 mls/hr Q24H IV Last administered on 11/29/16 16:21; Start 11/29/16 at 14:00; Stop 12/01/16 at 09:13; Status DC Polysaccharide Iron Complex (Niferex 150) 150 mg DAILY PO Last administered on 12/01/16 09:28; Start 11/30/16 at 12:00 Vitamin B Complex 1 tab 1 tab DAILY PO Last administered on 12/01/16 09:28; Start 11/30/16 at 12:00 Ceftriaxone Sodium/Sodium Chloride (Rocephin/Iv Sodium Chloride 0.9% 50ml) 50 ml @ 100 mls/hr ONCE ONCE IV Last administered on 12/01/16 12:24; Start at 09:30; Stop 12/01/16 at 09:59; Status DC Cefpodoxime Proxetil (Vantin) 200 mg DAILY PO ; Start 12/02/16 at 09:00 Al Hydroxide/Mg Hydroxide (Mylanta Plus Xs) 30 ml PRN Q6HRS PRN PO HEARTBURN / GAS Last administered on 12/01/16 20:40; Start 12/01/16 at 20:15 Calcium Carbonate/ Glycine (Tums) 500 mg PRN AFTMEALHC PRN PO INDIGESTION; Start 12/01/16 at 20:15 Active Scripts Active Reported Flovent 50MCG Diskus (Fluticasone Propionate) 50 Mcg Disk.w.dev 50 Mcg IH BID Imodium A-D (Loperamide Hcl) 1 Mg/7.5 Ml Liquid 2 Mg PO DAILY08 Norvasc (Amlodipine Besylate) 10 Mg Tablet 10 Mg PO DAILY08 Vitals/I & O Vital Sign - Last 24 Hours 12/01/16 12/01/16 12/01/16 12/01/16 09:28 10:30 14:43 19:00 Temp 97.8 99.3 98.3 97.8 99.3 98.3 Pulse 71 79 85 80 Resp 18 18 B/P 162/83 175/89 149/89 108/62 Pulse Ox 96 98 98 O2 Delivery Room Air Room Air Room Air 12/01/16 12/01/16 12/02/16 12/02/16 19:50 22:54 03:34 07:00 Temp 98.2 97.8 99.9 98.2 97.8 99.9 Pulse 71 71 74 Resp 18 18 14 B/P 108/62 154/86 145/74 Pulse Ox 98 96 96 O2 Delivery Room Air Room Air Room Air Room Air Intake and Output 12/01/16 12/01/16 12/02/16 15:00 23:00 07:00 Intake Total 240 ml Balance 240 ml RAKESH MATA MD Dec 02, 2016 08:47
[2016-12-02] MEDS: VITAMIN B12,B9,B6 COMPLEX 1 TABLET. PO SCH (10:57)
[2016-12-02] MEDS: CALCIUM CARBONATE 500 MG TAB.CHEW PO PRN ×3 (10:57→20:41)
[2016-12-02] MEDS: CALCITRIOL 0.25 MCG CAPSULE. PO SCH (10:57)
[2016-12-02] MEDS: CEFPODOXIME PROXETIL 100 MG TABLET. PO SCH (10:57)
[2016-12-02] MEDS: amLODIPine BESYLATE 10 MG TABLET PO SCH (10:58)
[2016-12-02] MEDS: IRON POLYSACCHARIDE COMPLEX 150 MG CAPSULE PO SCH (10:58)
[2016-12-02] MEDS: LOPERAMIDE 2 MG CAPSULE PO SCH (10:58)
[2016-12-02] MEDS: FLUTICASONE 50MCG/NASAL SPRAY 16GM BOTTLE. NS SCH (10:59)
[2016-12-02] MEDS ORDERED: IV 1/2 NORMAL SALINE 1,000 ML IV ONE (12:15)
--- NOTE | 2016-12-02 12:15 | PDOC ---
Renal-Progress Notes Subjective Notes Notes NONE History of Present Illness Hx of present illness NO CHANGE Vitals Vitals Vital Signs Date Time Temp Pulse Resp B/P Pulse Ox O2 Delivery O2 Flow Rate FiO2 12/02/16 11:00 99.0 74 16 121/73 98 Room Air 99.0 Weight Weight [ ] I.O. Intake and Output Intake and Output 12/02/16 06:59 Intake Total 240 ml Balance 240 ml Intake Oral 240 ml # Voids 5 Labs Labs Laboratory Tests Test 12/02/16 03:49 White Blood Count 6.4x10^3/uL (4.0-11.0) Red Blood Count 2.94x10^6/uL (3.50-5.40) Hemoglobin 8.3g/dL (12.0-15.5) Hematocrit 27.0% (36.0-47.0) Mean Corpuscular Volume 92fL (79-100) Mean Corpuscular Hemoglobin 28pg (25-35) Mean Corpuscular Hemoglobin Concent 31g/dL (31-37) Red Cell Distribution Width 14.7% (11.5-14.5) Platelet Count 109x10^3/uL (140-400) Neutrophils (%) (Auto) 67% (31-73) Lymphocytes (%) (Auto) 22% (24-48) Monocytes (%) (Auto) 7% (0-9) Eosinophils (%) (Auto) 3% (0-3) Basophils (%) (Auto) 1% (0-3) Neutrophils # (Auto) 4.3x10^3uL (1.8-7.7) Lymphocytes # (Auto) 1.4x10^3/uL (1.0-4.8) Monocytes # (Auto) 0.5x10^3/uL (0.0-1.1) Eosinophils # (Auto) 0.2x10^3/uL (0.0-0.7) Basophils # (Auto) 0.0x10^3/uL (0.0-0.2) Sodium Level 146mmol/L (136-145) Potassium Level 4.1mmol/L (3.5-5.1) Chloride Level 112mmol/L (98-107) Carbon Dioxide Level 23mmol/L (21-32) Anion Gap 11 (6-14) Blood Urea Nitrogen 27mg/dL (7-20) Creatinine 2.6mg/dL (0.6-1.0) Estimated GFR (Cockcroft-Gault) 18.4 Glucose Level 81mg/dL (70-99) Calcium Level 8.3mg/dL (8.5-10.1) Phosphorus Level 4.6mg/dL (2.6-4.7) Magnesium Level 1.7mg/dL (1.8-2.4) Albumin 2.5g/dL (3.4-5.0) Micro Micro Microbiology 11/28/16 Urine Culture - Final, Complete 11/28/16 Urine Culture Result 1 (OLAMIDE) - Final, Complete 11/28/16 Antimicrobic Susceptibility - Final, Complete Review of Systems Constitutional: yes: no symptom reported Physical Exam General Appearance: no apparent distress Skin: warm Respiratory: decreased breath sounds Heart: S1S2 Abdomen: soft, bowel sounds present Extremities: pulses present, no edema, atrophy Neurology: alert, oriented Assessment Assessment IMP KEYONNA TO PROB CKD/ESRD ANEMIA HYPERNATREMIA PLAN NO HD TODAY TRIAL OF IVF'S POSSIBLE NEXT HD ON SUNDAY WILL FOLLOW UPDATED FAMILY LIONEL BRAGA MD Dec 02, 2016 12:15
[2016-12-03 07:00] VITALS: BP 154/91
[2016-12-03] MEDS: LOPERAMIDE 2 MG CAPSULE PO SCH ×2 (08:00→08:42)
[2016-12-03] MEDS: amLODIPine BESYLATE 10 MG TABLET PO SCH (08:41)
[2016-12-03] MEDS: CEFPODOXIME PROXETIL 100 MG TABLET. PO SCH (08:41)
[2016-12-03] MEDS: VITAMIN B12,B9,B6 COMPLEX 1 TABLET. PO SCH (08:42)
[2016-12-03] MEDS: CALCITRIOL 0.25 MCG CAPSULE. PO SCH (08:42)
[2016-12-03] MEDS: IRON POLYSACCHARIDE COMPLEX 150 MG CAPSULE PO SCH (08:42)
[2016-12-03] MEDS: FLUTICASONE 50MCG/NASAL SPRAY 16GM BOTTLE. NS SCH (08:46)
[2016-12-03 10:20] LABS: ALBUMIN 2.6 g/dL (3.4-5.0); CALCIUM 8.4 mg/dL (8.5-10.1); CREATININE 2.5 mg/dL (0.6-1.0); GFR 19.2; PHOSPHORUS 3.8 mg/dL (2.6-4.7); POTASSIUM 3.8 mmol/L (3.5-5.1)
--- NOTE | 2016-12-03 10:36 | PDOC ---
Renal-Progress Notes Subjective Notes Notes NONE History of Present Illness Hx of present illness NO CHANGE Vitals Vitals Vital Signs Date Time Temp Pulse Resp B/P Pulse Ox O2 Delivery O2 Flow Rate FiO2 12/03/16 08:41 79 154/91 12/03/16 07:00 98.5 16 91 Room Air 98.5 Weight Weight [ ] I.O. Intake and Output Intake and Output 12/03/16 07:00 Intake Total 2665 ml Balance 2665 ml Intake Oral 1680 ml IV Total 985 ml # Voids 2 Labs Labs Laboratory Tests Test 12/03/16 09:35 Sodium Level 144mmol/L (136-145) Potassium Level 3.8mmol/L (3.5-5.1) Chloride Level 110mmol/L (98-107) Carbon Dioxide Level 23mmol/L (21-32) Anion Gap 11 (6-14) Blood Urea Nitrogen 27mg/dL (7-20) Creatinine 2.5mg/dL (0.6-1.0) Estimated GFR (Cockcroft-Gault) 19.2 Glucose Level 120mg/dL (70-99) Calcium Level 8.4mg/dL (8.5-10.1) Phosphorus Level 3.8mg/dL (2.6-4.7) Albumin 2.6g/dL (3.4-5.0) Micro Micro Microbiology 11/28/16 Urine Culture - Final, Complete 11/28/16 Urine Culture Result 1 (OLAMIDE) - Final, Complete 11/28/16 Antimicrobic Susceptibility - Final, Complete Review of Systems Constitutional: yes: no symptom reported Physical Exam General Appearance: no apparent distress Skin: warm Respiratory: decreased breath sounds Heart: S1S2 Abdomen: soft, bowel sounds present Extremities: pulses present, no edema, atrophy Neurology: alert, oriented Assessment Assessment IMP KEYONNA TO PROB CKD/ESRD ANEMIA HYPERNATREMIA PLAN TRIAL OF IVF'S POSSIBLE NEXT HD ON SUNDAY BASED ON LABS WILL FOLLOW LIONEL BRAGA MD Dec 03, 2016 10:36
[2016-12-03] MEDS: IV NORMAL SALINE 1000ML BAG 1,000 ML IV SCH ×2 (10:45→20:22)
[2016-12-03 11:00] VITALS: BP 136/76
--- NOTE | 2016-12-03 11:03 | PDOC ---
PROGRESS NOTES Chief Complaint Chief Complaint 1. ESRD now new HD 2. NEW HD (11/28/16) but now doing well off, better UO 3. Anemia of CKD 3. HTN, controlled 4. GAP metabolic acidosis 5. Urinary incontinence 6. Gen weakness - acquired 7. Hypernatremia History of Present Illness History of Present Illness Hypernat better Na 144 today NO issues Comfortable REnal note reviewed PLAn: Renal panel daily HD possibly sunday depending on labs sunday On IVF and monitoring kidney fcn PT/OT dw pt and RN Vitals Vitals Vital Signs Date Time Temp Pulse Resp B/P Pulse Ox O2 Delivery O2 Flow Rate FiO2 12/03/16 08:41 79 154/91 12/03/16 07:00 98.5 16 91 Room Air 98.5 Physical Exam General: Alert, Oriented X3, Cooperative, No acute distress Lungs: Clear Abdomen: Normal bowel sounds, Soft, No tenderness, No hepatosplenomegaly, No masses Extremities: No clubbing, No cyanosis, No edema, Normal pulses, No tenderness/ swelling Skin: No rashes, No breakdown, No significant lesion Labs LABS Laboratory Tests Test 12/03/16 09:35 Sodium Level 144mmol/L (136-145) Potassium Level 3.8mmol/L (3.5-5.1) Chloride Level 110mmol/L (98-107) Carbon Dioxide Level 23mmol/L (21-32) Anion Gap 11 (6-14) Blood Urea Nitrogen 27mg/dL (7-20) Creatinine 2.5mg/dL (0.6-1.0) Estimated GFR (Cockcroft-Gault) 19.2 Glucose Level 120mg/dL (70-99) Calcium Level 8.4mg/dL (8.5-10.1) Phosphorus Level 3.8mg/dL (2.6-4.7) Albumin 2.6g/dL (3.4-5.0) Review of Systems Review of Systems no soa, cp, n,v,d Assessment and Plan Assessmemt and Plan Problems Medical Problems: (1) Acute on chronic renal failure Status: Acute (2) Hypocalcemia Status: Acute (3) Hypomagnesemia Status: Acute (4) Metabolic encephalopathy Status: Acute (5) Normocytic anemia Status: Acute Problems: Comment Review of Relevant I have reviewed the following items yoel (where applicable) has been applied. Labs Laboratory Tests Test 12/02/16 03:49 12/03/16 09:35 White Blood Count 6.4x10^3/uL (4.0-11.0) Red Blood Count 2.94x10^6/uL (3.50-5.40) Hemoglobin 8.3g/dL (12.0-15.5) Hematocrit 27.0% (36.0-47.0) Mean Corpuscular Volume 92fL (79-100) Mean Corpuscular Hemoglobin 28pg (25-35) Mean Corpuscular Hemoglobin Concent 31g/dL (31-37) Red Cell Distribution Width 14.7% (11.5-14.5) Platelet Count 109x10^3/uL (140-400) Neutrophils (%) (Auto) 67% (31-73) Lymphocytes (%) (Auto) 22% (24-48) Monocytes (%) (Auto) 7% (0-9) Eosinophils (%) (Auto) 3% (0-3) Basophils (%) (Auto) 1% (0-3) Neutrophils # (Auto) 4.3x10^3uL (1.8-7.7) Lymphocytes # (Auto) 1.4x10^3/uL (1.0-4.8) Monocytes # (Auto) 0.5x10^3/uL (0.0-1.1) Eosinophils # (Auto) 0.2x10^3/uL (0.0-0.7) Basophils # (Auto) 0.0x10^3/uL (0.0-0.2) Sodium Level 146mmol/L (136-145) 144mmol/L (136-145) Potassium Level 4.1mmol/L (3.5-5.1) 3.8mmol/L (3.5-5.1) Chloride Level 112mmol/L (98-107) 110mmol/L (98-107) Carbon Dioxide Level 23mmol/L (21-32) 23mmol/L (21-32) Anion Gap 11 (6-14) 11 (6-14) Blood Urea Nitrogen 27mg/dL (7-20) 27mg/dL (7-20) Creatinine 2.6mg/dL (0.6-1.0) 2.5mg/dL (0.6-1.0) Estimated GFR (Cockcroft-Gault) 18.4 19.2 Glucose Level 81mg/dL (70-99) 120mg/dL (70-99) Calcium Level 8.3mg/dL (8.5-10.1) 8.4mg/dL (8.5-10.1) Phosphorus Level 4.6mg/dL (2.6-4.7) 3.8mg/dL (2.6-4.7) Magnesium Level 1.7mg/dL (1.8-2.4) Albumin 2.5g/dL (3.4-5.0) 2.6g/dL (3.4-5.0) Laboratory Tests Test 12/03/16 09:35 Sodium Level 144mmol/L (136-145) Potassium Level 3.8mmol/L (3.5-5.1) Chloride Level 110mmol/L (98-107) Carbon Dioxide Level 23mmol/L (21-32) Anion Gap 11 (6-14) Blood Urea Nitrogen 27mg/dL (7-20) Creatinine 2.5mg/dL (0.6-1.0) Estimated GFR (Cockcroft-Gault) 19.2 Glucose Level 120mg/dL (70-99) Calcium Level 8.4mg/dL (8.5-10.1) Phosphorus Level 3.8mg/dL (2.6-4.7) Albumin 2.6g/dL (3.4-5.0) Microbiology 11/28/16 Urine Culture - Final, Complete 11/28/16 Urine Culture Result 1 (OLAMIDE) - Final, Complete 11/28/16 Antimicrobic Susceptibility - Final, Complete Medications Current Medications Sodium Chloride (Iv Sodium Chloride 0.9% 1000ml Bag) 1,000 ml @ 100 mls/hr 1X ONCE IV Last administered on 11/26/16t 19:38; Start 11/26/16 at 19:30; Stop at 05:29; Status DC Ondansetron HCl 4 mg 4 mg PRN Q8HRS PRN IV NAUSEA/VOMITING; Start 11/26/16 at 20:45; Stop 11/27/16 at 08:29; Status DC Sodium Chloride (Iv Sodium Chloride 0.9% 1000ml Bag) 1,000 ml @ 125 mls/hr Q8H IV Last administered on 11/27/16 04:53; Start 11/26/16 at 20:31; Stop at 06:39; Status DC Acetaminophen 650 mg 650 mg PRN Q4HRS PRN PO FEVER; Start 11/26/16 at 20:45; Stop 11/27/16 at 20:44; Status DC Sodium Bicarbonate 100 meq/Dextrose 1,100 ml @ 125 mls/hr Q8H48M IV Last administered on 11/27/16 06:25; Start 11/27/16 at 06:30; Stop 11/27/16 at 06:35 ; Status DC Sodium Bicarbonate/ Dextrose 1,100 ml @ 125 mls/hr Q8H48M IV Last administered on 11/28/16 09:24; Start 11/27/16 at 07:00; Stop 11/29/16 at 11:42 ; Status DC Ondansetron HCl (Zofran) 4 mg PRN Q6HRS PRN IV NAUSEA/VOMITING Last administered on 11/28/16 15:56; Start 11/27/16 at 08:28 Amlodipine Besylate (Norvasc) 10 mg DAILY08 PO Last administered on 12/03/16 08:41; Start 11/28/16 at 08:00 Fluticasone Propionate (Flonase) 2 spray DAILY NS Last administered on 08:46; Start 11/27/16 at 09:00 Loperamide HCl 2 mg 2 mg DAILY08 PO Last administered on 12/02/16 10:58; Start 11/27/16 at 08:45 Magnesium Sulfate/ Dextrose 50 ml @ 25 mls/hr PRN DAILY PRN IV for Mag < 1.7 on am labs Last administered on 11/29/16 12:57; Start 11/27/16 at 11:30 Magnesium Sulfate/ Dextrose (Magnesium Sulfate PREMIX 2GM) 50 ml @ 25 mls/hr PRN DAILY PRN IV for Mag < 1.7 on am labs; Start 11/27/16 at 11:30; Status UNV Iohexol (Omnipaque 240 Mg/ml) 30 ml 1X ONCE PO ; Start 11/27/16 at 13:00; Stop 11/27/16 at 13:01; Status DC Lidocaine/Sodium Bicarbonate (Buffered Lidocaine 1%) 3 ml 1X ONCE IJ Last administered on 11/27/16 16:28; Start 11/27/16 at 15:30; Stop 11/27/16 at 15:31 ; Status DC Heparin Sodium/ Sodium Chloride 60 unit 1X ONCE IV Last administered on 16:28; Start 11/27/16 at 15:30; Stop 11/27/16 at 15:31; Status DC Heparin Sodium (Porcine) (Heparin Sodium) 2,500 unit 1X ONCE INT CAT Last administered on 11/27/16 16:29; Start 11/27/16 at 15:30; Stop 11/27/16 at 15:31 ; Status DC Heparin Sodium (Porcine) 01074 unit 10,000 unit STK-MED ONCE .ROUTE ; Start at 15:58; Stop 11/27/16 at 15:59; Status DC Sodium Chloride 1,000 ml @ 1,000 mls/hr PRN Q1HR PRN IV hypotension; Start at 17:38; Stop 12/01/16 at 12:17; Status DC Albumin Human (Albuminar) 200 ml @ 200 mls/hr 1X PRN PRN IV Hypotension; Start 11/27/16 at 17:45; Stop 11/27/16 at 23:44; Status DC Info (PHARMACY MONITORING -- do not chart) 1 each PRN DAILY PRN MC SEE COMMENTS ; Start 11/27/16 at 17:45; Status Cancel Acetaminophen (Tylenol) 650 mg PRN Q6HRS PRN PO HEADACHE Last administered on 18:05; Start 11/27/16 at 23:00 Potassium Chloride 40 meq 40 meq 1X ONCE PO Last administered on 11/28/16 11: 36; Start 11/28/16 at 07:00; Stop 11/28/16 at 07:01; Status DC Sodium Chloride 1,000 ml @ 1,000 mls/hr Q1H PRN IV hypotension; Start 11/28/16 at 08:28; Stop 11/28/16 at 14:27; Status DC Albumin Human (Albuminar) 200 ml @ 200 mls/hr 1X PRN PRN IV Hypotension; Start 11/28/16 at 08:30; Stop 11/28/16 at 14:29; Status DC Acetaminophen (Tylenol) 500 mg 1X PRN PRN PO MILD PAIN / TEMP; Start 11/28/16 at 08:30; Stop 11/29/16 at 08:29; Status DC Diphenhydramine HCl (Benadryl) 25 mg 1X PRN PRN IV ITCHING; Start 11/28/16 at 08:30; Stop 11/29/16 at 08:29; Status DC Diphenhydramine HCl 25 mg 25 mg 1X PRN PRN IV ITCHING; Start 11/28/16 at 08:30 ; Stop 11/29/16 at 08:29; Status DC Sodium Chloride (Iv Sodium Chloride 0.9% 1000ml Bag) 1,000 ml @ 400 mls/hr Q2H30M PRN IV PATENCY; Start 11/28/16 at 08:28; Stop 11/28/16 at 20:27; Status DC Info 1 each 1 each PRN DAILY PRN MC SEE COMMENTS; Start 11/28/16 at 08:30 Magnesium Sulfate/ Dextrose 50 ml @ 25 mls/hr 1X ONCE IV Last administered on 11/28/16 18:32; Start 11/28/16 at 09:30; Stop 11/28/16 at 11:29; Status DC Potassium Phosphate 13.6 mmol/Sodium Chloride 104.5333 ml @ 52.267 m... Q2H IV Last administered on 11/28/16 20:51; Start 11/28/16 at 09:30; Stop 11/28/16 at 15:29; Status DC Sodium Chloride 500 ml @ 0 mls/hr PRN QID PRN IV UO< 30cc/hr over previous 6hrs ; Start 11/29/16 at 11:45; Stop 12/01/16 at 12:17; Status DC Sodium Chloride (Iv Sodium Chloride 0.9% 1000ml Bag) 1,000 ml @ 125 mls/hr Q8H IV Last administered on 11/30/16 22:54; Start 11/29/16 at 11:45; Stop at 12:17; Status DC Calcitriol (Rocaltrol) 0.25 mcg DAILY PO Last administered on 12/03/16 08:42; Start 11/29/16 at 12:00 Ergocalciferol 75815 unit 50,000 unit WEEKLY PO Last administered on 11/29/16 12:56; Start 11/29/16 at 12:00; Stop 03/07/17 at 09:01 Calcium Chloride/ Sodium Chloride (Iv Sodium Chloride 0.9% 100ml) 120 ml @ 240 mls/hr 1X ONCE IV Last administered on 11/29/16 15:34; Start 11/29/16 at 12: 30; Stop 11/29/16 at 12:59; Status DC Darbepoetin Jono 60 mcg 60 mcg WEEKLYHS SQ Last administered on 11/29/16 20:44 ; Start 11/29/16 at 21:00 Ceftriaxone Sodium/Sodium Chloride (Rocephin/Iv Sodium Chloride 0.9% 50ml) 50 ml @ 100 mls/hr Q24H IV Last administered on 11/29/16 16:21; Start 11/29/16 at 14:00; Stop 12/01/16 at 09:13; Status DC Polysaccharide Iron Complex (Niferex 150) 150 mg DAILY PO Last administered on 12/03/16 08:42; Start 11/30/16 at 12:00 Vitamin B Complex 1 tab 1 tab DAILY PO Last administered on 12/03/16 08:42; Start 11/30/16 at 12:00 Ceftriaxone Sodium/Sodium Chloride (Rocephin/Iv Sodium Chloride 0.9% 50ml) 50 ml @ 100 mls/hr ONCE ONCE IV Last administered on 12/01/16 12:24; Start at 09:30; Stop 12/01/16 at 09:59; Status DC Cefpodoxime Proxetil (Vantin) 200 mg DAILY PO Last administered on 12/03/16 08 :41; Start 12/02/16 at 09:00 Al Hydroxide/Mg Hydroxide (Mylanta Plus Xs) 30 ml PRN Q6HRS PRN PO HEARTBURN / GAS Last administered on 12/01/16 20:40; Start 12/01/16 at 20:15 Calcium Carbonate/ Glycine 500 mg 500 mg PRN AFTMEALHC PRN PO INDIGESTION Last administered on 12/02/16 20:41; Start 12/01/16 at 20:15 Sodium Chloride 1,000 ml @ 75 mls/hr 1X ONCE IV Last administered on 4/22/ 17at 13:07; Start 12/02/16 at 12:15; Stop 12/03/16 at 01:34; Status DC Sodium Chloride (Iv Sodium Chloride 0.9% 1000ml Bag) 1,000 ml @ 75 mls/hr [id number] IV ; Start 12/03/16 at 10:45 Active Scripts Active Reported Flovent 50MCG Diskus (Fluticasone Propionate) 50 Mcg Disk.w.dev 50 Mcg IH BID Imodium A-D (Loperamide Hcl) 1 Mg/7.5 Ml Liquid 2 Mg PO DAILY08 Norvasc (Amlodipine Besylate) 10 Mg Tablet 10 Mg PO DAILY08 Vitals/I & O Vital Sign - Last 24 Hours 12/02/16 12/02/16 12/02/16 12/02/16 13:40 15:00 19:00 20:00 Temp 97.9 98.4 98.6 97.9 98.4 98.6 Pulse 54 74 80 Resp 14 16 18 B/P 136/82 137/85 109/63 Pulse Ox 96 96 96 O2 Delivery Room Air Room Air Room Air Room Air 12/02/16 12/03/16 12/03/16 22:30 07:00 08:41 Temp 97.9 98.5 97.9 98.5 Pulse 75 79 79 Resp 19 16 B/P 133/73 154/91 154/91 Pulse Ox 97 91 O2 Delivery Room Air Room Air Intake and Output 12/02/16 12/02/16 12/03/16 15:00 23:00 07:00 Intake Total 640 ml 1135 ml 890 ml Balance 640 ml 1135 ml 890 ml RAKESH MATA MD Dec 03, 2016 11:03
[2016-12-03] MEDS: CALCIUM CARBONATE 500 MG TAB.CHEW PO PRN (13:45)
[2016-12-03 15:00] VITALS: BP 140/76
[2016-12-03 19:00] VITALS: BP 134/84
[2016-12-03 22:55] VITALS: BP 131/80
[2016-12-04] VITALS (7 sets, daily range): BP systolic 97–138; BP diastolic 54–83
[2016-12-04 05:40] LABS: ALBUMIN 2.4 g/dL (3.4-5.0); CALCIUM 7.9 mg/dL (8.5-10.1); CREATININE 2.3 mg/dL (0.6-1.0); GFR 21.2; PHOSPHORUS 4.1 mg/dL (2.6-4.7); POTASSIUM 4.3 mmol/L (3.5-5.1)
[2016-12-04 07:03] LABS: HEMATOCRIT 26.9 % (36.0-47.0); HEMOGLOBIN 8.2 g/dL (12.0-15.5); RED BLOOD COUNT 2.92 x10^6/uL (3.50-5.40); RED CELL DISTRIBUTION WIDTH 14.6 % (11.5-14.5); WHITE BLOOD COUNT 6.8 x10^3/uL (4.0-11.0)
[2016-12-04] MEDS: amLODIPine BESYLATE 10 MG TABLET PO SCH (08:00)
[2016-12-04 08:24] LABS: INR 1.1 (0.8-1.1); PROTHROMBIN TIME PATIENT 13.5 SEC (11.7-14.0)
[2016-12-04] MEDS ORDERED: HEPARIN for IV BOLUS 10,000 UNIT/10 ML VIAL. ONE (08:45)
[2016-12-04] MEDS ORDERED: LIDOCAINE 1%/EPI 1:100,000 20 ML VIAL. ONE (08:45)
[2016-12-04] MEDS ORDERED: FENTANYL PF 100 MCG/2 ML VIAL. ONE (09:10)
[2016-12-04] MEDS ORDERED: MIDAZOLAM HCL/PF 2 MG/2 ML VIAL. ONE (09:10)
[2016-12-04] MEDS ORDERED: CLINDAMYCIN 600MG PREMIX 50 ML IV ONE ×2 (09:16→09:45)
[2016-12-04] MEDS ORDERED: FENTANYL PF 100 MCG/2 ML VIAL. IV ONE (09:45)
[2016-12-04] MEDS ORDERED: MIDAZOLAM HCL/PF 2 MG/2 ML VIAL. IV ONE (09:45)
[2016-12-04] MEDS ORDERED: LIDOCAINE 1%/EPI 1:100,000 20 ML VIAL. IJ ONE (09:45)
[2016-12-04] MEDS: VITAMIN B12,B9,B6 COMPLEX 1 TABLET. PO SCH (10:20)
[2016-12-04] MEDS: FLUTICASONE 50MCG/NASAL SPRAY 16GM BOTTLE. NS SCH (10:21)
[2016-12-04] MEDS: CALCITRIOL 0.25 MCG CAPSULE. PO SCH (10:21)
[2016-12-04] MEDS: CEFPODOXIME PROXETIL 100 MG TABLET. PO SCH (10:21)
[2016-12-04] MEDS: IRON POLYSACCHARIDE COMPLEX 150 MG CAPSULE PO SCH (10:21)
[2016-12-04] MEDS: LOPERAMIDE 2 MG CAPSULE PO SCH (10:21)
--- NOTE | 2016-12-04 12:05 | PDOC ---
PROGRESS NOTES Chief Complaint Chief Complaint 1. ESRD now new HD 2. NEW HD (11/28/16) but now doing well off, 3. Anemia of CKD 3. HTN, controlled 4. GAP metabolic acidosis 5. Urinary incontinence 6. Gen weakness - acquired 7. Hypernatremia resolved. Plan S/P Rt IJ tunneled HDC insertion HD per nephrology labs reviewed clinically improving Monitor renal functions PT/OT renal diet History of Present Illness History of Present Illness no fever doing better making some urine Vitals Vitals Vital Signs Date Time Temp Pulse Resp B/P Pulse Ox O2 Delivery O2 Flow Rate FiO2 12/04/16 11:01 97.3 75 16 122/68 96 Room Air 97.3 12/04/16 09:48 2.0 Physical Exam General: Alert, Oriented X3, Cooperative, No acute distress Heart: Normal S1, Normal S2 Lungs: Clear Abdomen: Normal bowel sounds, Soft, No tenderness, No hepatosplenomegaly, No masses Extremities: No clubbing, No cyanosis, No edema, Normal pulses, No tenderness/ swelling Skin: No rashes, No breakdown, No significant lesion Labs LABS Laboratory Tests Test 12/04/16 04:50 12/04/16 06:50 12/04/16 08:00 Sodium Level 140mmol/L (136-145) Potassium Level 4.3mmol/L (3.5-5.1) Chloride Level 111mmol/L (98-107) Carbon Dioxide Level 16mmol/L (21-32) Anion Gap 13 (6-14) Blood Urea Nitrogen 28mg/dL (7-20) Creatinine 2.3mg/dL (0.6-1.0) Estimated GFR (Cockcroft-Gault) 21.2 Glucose Level 82mg/dL (70-99) Calcium Level 7.9mg/dL (8.5-10.1) Phosphorus Level 4.1mg/dL (2.6-4.7) Albumin 2.4g/dL (3.4-5.0) White Blood Count 6.8x10^3/uL (4.0-11.0) Red Blood Count 2.92x10^6/uL (3.50-5.40) Hemoglobin 8.2g/dL (12.0-15.5) Hematocrit 26.9% (36.0-47.0) Mean Corpuscular Volume 92fL (79-100) Mean Corpuscular Hemoglobin 28pg (25-35) Mean Corpuscular Hemoglobin Concent 30g/dL (31-37) Red Cell Distribution Width 14.6% (11.5-14.5) Platelet Count 123x10^3/uL (140-400) Prothrombin Time 13.5SEC (11.7-14.0) Prothromb Time International Ratio 1.1 (0.8-1.1) Assessment and Plan Assessmemt and Plan Problems Medical Problems: (1) Acute on chronic renal failure Status: Acute (2) Hypocalcemia Status: Acute (3) Hypomagnesemia Status: Acute (4) Metabolic encephalopathy Status: Acute (5) Normocytic anemia Status: Acute Problems: Comment Review of Relevant I have reviewed the following items yoel (where applicable) has been applied. Labs Laboratory Tests Test 12/03/16 09:35 12/04/16 04:50 12/04/16 06:50 12/04/16 08:00 Sodium Level 144mmol/L (136-145) 140mmol/L (136-145) Potassium Level 3.8mmol/L (3.5-5.1) 4.3mmol/L (3.5-5.1) Chloride Level 110mmol/L (98-107) 111mmol/L (98-107) Carbon Dioxide Level 23mmol/L (21-32) 16mmol/L (21-32) Anion Gap 11 (6-14) 13 (6-14) Blood Urea Nitrogen 27mg/dL (7-20) 28mg/dL (7-20) Creatinine 2.5mg/dL (0.6-1.0) 2.3mg/dL (0.6-1.0) Estimated GFR (Cockcroft-Gault) 19.2 21.2 Glucose Level 120mg/dL (70-99) 82mg/dL (70-99) Calcium Level 8.4mg/dL (8.5-10.1) 7.9mg/dL (8.5-10.1) Phosphorus Level 3.8mg/dL (2.6-4.7) 4.1mg/dL (2.6-4.7) Albumin 2.6g/dL (3.4-5.0) 2.4g/dL (3.4-5.0) White Blood Count 6.8x10^3/uL (4.0-11.0) Red Blood Count 2.92x10^6/uL (3.50-5.40) Hemoglobin 8.2g/dL (12.0-15.5) Hematocrit 26.9% (36.0-47.0) Mean Corpuscular Volume 92fL (79-100) Mean Corpuscular Hemoglobin 28pg (25-35) Mean Corpuscular Hemoglobin Concent 30g/dL (31-37) Red Cell Distribution Width 14.6% (11.5-14.5) Platelet Count 123x10^3/uL (140-400) Prothrombin Time 13.5SEC (11.7-14.0) Prothromb Time International Ratio 1.1 (0.8-1.1) Laboratory Tests Test 12/04/16 04:50 12/04/16 06:50 12/04/16 08:00 Sodium Level 140mmol/L (136-145) Potassium Level 4.3mmol/L (3.5-5.1) Chloride Level 111mmol/L (98-107) Carbon Dioxide Level 16mmol/L (21-32) Anion Gap 13 (6-14) Blood Urea Nitrogen 28mg/dL (7-20) Creatinine 2.3mg/dL (0.6-1.0) Estimated GFR (Cockcroft-Gault) 21.2 Glucose Level 82mg/dL (70-99) Calcium Level 7.9mg/dL (8.5-10.1) Phosphorus Level 4.1mg/dL (2.6-4.7) Albumin 2.4g/dL (3.4-5.0) White Blood Count 6.8x10^3/uL (4.0-11.0) Red Blood Count 2.92x10^6/uL (3.50-5.40) Hemoglobin 8.2g/dL (12.0-15.5) Hematocrit 26.9% (36.0-47.0) Mean Corpuscular Volume 92fL (79-100) Mean Corpuscular Hemoglobin 28pg (25-35) Mean Corpuscular Hemoglobin Concent 30g/dL (31-37) Red Cell Distribution Width 14.6% (11.5-14.5) Platelet Count 123x10^3/uL (140-400) Prothrombin Time 13.5SEC (11.7-14.0) Prothromb Time International Ratio 1.1 (0.8-1.1) Microbiology 11/28/16 Urine Culture - Final, Complete 11/28/16 Urine Culture Result 1 (OLAMIDE) - Final, Complete 11/28/16 Antimicrobic Susceptibility - Final, Complete Medications Current Medications Sodium Chloride (Iv Sodium Chloride 0.9% 1000ml Bag) 1,000 ml @ 100 mls/hr 1X ONCE IV Last administered on 11/26/16 19:38; Start 11/26/16 at 19:30; Stop at 05:29; Status DC Ondansetron HCl 4 mg 4 mg PRN Q8HRS PRN IV NAUSEA/VOMITING; Start 11/26/16 at 20:45; Stop 11/27/16 at 08:29; Status DC Sodium Chloride (Iv Sodium Chloride 0.9% 1000ml Bag) 1,000 ml @ 125 mls/hr Q8H IV Last administered on 11/27/16 04:53; Start 11/26/16 at 20:31; Stop at 06:39; Status DC Acetaminophen 650 mg 650 mg PRN Q4HRS PRN PO FEVER; Start 11/26/16 at 20:45; Stop 11/27/16 at 20:44; Status DC Sodium Bicarbonate 100 meq/Dextrose 1,100 ml @ 125 mls/hr Q8H48M IV Last administered on 11/27/16 06:25; Start 11/27/16 at 06:30; Stop 11/27/16 at 06:35 ; Status DC Sodium Bicarbonate/ Dextrose 1,100 ml @ 125 mls/hr Q8H48M IV Last administered on 11/28/16 09:24; Start 11/27/16 at 07:00; Stop 11/29/16 at 11:42 ; Status DC Ondansetron HCl (Zofran) 4 mg PRN Q6HRS PRN IV NAUSEA/VOMITING Last administered on 11/28/16 15:56; Start 11/27/16 at 08:28 Amlodipine Besylate (Norvasc) 10 mg DAILY08 PO Last administered on 12/03/16 08:41; Start 11/28/16 at 08:00 Fluticasone Propionate (Flonase) 2 spray DAILY NS Last administered on 10:21; Start 11/27/16 at 09:00 Loperamide HCl 2 mg 2 mg DAILY08 PO Last administered on 12/04/16 10:21; Start 11/27/16 at 08:45 Magnesium Sulfate/ Dextrose 50 ml @ 25 mls/hr PRN DAILY PRN IV for Mag < 1.7 on am labs Last administered on 11/29/16 12:57; Start 11/27/16 at 11:30 Magnesium Sulfate/ Dextrose (Magnesium Sulfate PREMIX 2GM) 50 ml @ 25 mls/hr PRN DAILY PRN IV for Mag < 1.7 on am labs; Start 11/27/16 at 11:30; Status UNV Iohexol (Omnipaque 240 Mg/ml) 30 ml 1X ONCE PO ; Start 11/27/16 at 13:00; Stop 11/27/16 at 13:01; Status DC Lidocaine/Sodium Bicarbonate (Buffered Lidocaine 1%) 3 ml 1X ONCE IJ Last administered on 11/27/16 16:28; Start 11/27/16 at 15:30; Stop 11/27/16 at 15:31 ; Status DC Heparin Sodium/ Sodium Chloride 60 unit 1X ONCE IV Last administered on 16:28; Start 11/27/16 at 15:30; Stop 11/27/16 at 15:31; Status DC Heparin Sodium (Porcine) (Heparin Sodium) 2,500 unit 1X ONCE INT CAT Last administered on 11/27/16 16:29; Start 11/27/16 at 15:30; Stop 11/27/16 at 15:31 ; Status DC Heparin Sodium (Porcine) 43327 unit 10,000 unit STK-MED ONCE .ROUTE ; Start at 15:58; Stop 11/27/16 at 15:59; Status DC Sodium Chloride 1,000 ml @ 1,000 mls/hr PRN Q1HR PRN IV hypotension; Start at 17:38; Stop 12/01/16 at 12:17; Status DC Albumin Human (Albuminar) 200 ml @ 200 mls/hr 1X PRN PRN IV Hypotension; Start 11/27/16 at 17:45; Stop 11/27/16 at 23:44; Status DC Info (PHARMACY MONITORING -- do not chart) 1 each PRN DAILY PRN MC SEE COMMENTS ; Start 11/27/16 at 17:45; Status Cancel Acetaminophen (Tylenol) 650 mg PRN Q6HRS PRN PO HEADACHE Last administered on t 18:05; Start 11/27/16 at 23:00 Potassium Chloride 40 meq 40 meq 1X ONCE PO Last administered on 11/28/16 11: 36; Start 11/28/16 at 07:00; Stop 11/28/16 at 07:01; Status DC Sodium Chloride 1,000 ml @ 1,000 mls/hr Q1H PRN IV hypotension; Start 11/28/16 at 08:28; Stop 11/28/16 at 14:27; Status DC Albumin Human (Albuminar) 200 ml @ 200 mls/hr 1X PRN PRN IV Hypotension; Start 11/28/16 at 08:30; Stop 11/28/16 at 14:29; Status DC Acetaminophen (Tylenol) 500 mg 1X PRN PRN PO MILD PAIN / TEMP; Start 11/28/16 at 08:30; Stop 11/29/16 at 08:29; Status DC Diphenhydramine HCl (Benadryl) 25 mg 1X PRN PRN IV ITCHING; Start 11/28/16 at 08:30; Stop 11/29/16 at 08:29; Status DC Diphenhydramine HCl 25 mg 25 mg 1X PRN PRN IV ITCHING; Start 11/28/16 at 08:30 ; Stop 11/29/16 at 08:29; Status DC Sodium Chloride (Iv Sodium Chloride 0.9% 1000ml Bag) 1,000 ml @ 400 mls/hr Q2H30M PRN IV PATENCY; Start 11/28/16 at 08:28; Stop 11/28/16 at 20:27; Status DC Info 1 each 1 each PRN DAILY PRN MC SEE COMMENTS; Start 11/28/16 at 08:30 Magnesium Sulfate/ Dextrose 50 ml @ 25 mls/hr 1X ONCE IV Last administered on 11/28/16 18:32; Start 11/28/16 at 09:30; Stop 11/28/16 at 11:29; Status DC Potassium Phosphate 13.6 mmol/Sodium Chloride 104.5333 ml @ 52.267 m... Q2H IV Last administered on 11/28/16 20:51; Start 11/28/16 at 09:30; Stop 11/28/16 at 15:29; Status DC Sodium Chloride 500 ml @ 0 mls/hr PRN QID PRN IV UO< 30cc/hr over previous 6hrs ; Start 11/29/16 at 11:45; Stop 12/01/16 at 12:17; Status DC Sodium Chloride (Iv Sodium Chloride 0.9% 1000ml Bag) 1,000 ml @ 125 mls/hr Q8H IV Last administered on 11/30/16 22:54; Start 11/29/16 at 11:45; Stop at 12:17; Status DC Calcitriol (Rocaltrol) 0.25 mcg DAILY PO Last administered on 12/04/16 10:21; Start 11/29/16 at 12:00 Ergocalciferol 33012 unit 50,000 unit WEEKLY PO Last administered on 11/29/16 12:56; Start 11/29/16 at 12:00; Stop 03/07/17 at 09:01 Calcium Chloride/ Sodium Chloride (Iv Sodium Chloride 0.9% 100ml) 120 ml @ 240 mls/hr 1X ONCE IV Last administered on 11/29/16 15:34; Start 11/29/16 at 12: 30; Stop 11/29/16 at 12:59; Status DC Darbepoetin Jono 60 mcg 60 mcg WEEKLYHS SQ Last administered on 11/29/16 20:44 ; Start 11/29/16 at 21:00 Ceftriaxone Sodium/Sodium Chloride (Rocephin/Iv Sodium Chloride 0.9% 50ml) 50 ml @ 100 mls/hr Q24H IV Last administered on 11/29/16 16:21; Start 11/29/16 at 14:00; Stop 12/01/16 at 09:13; Status DC Polysaccharide Iron Complex (Niferex 150) 150 mg DAILY PO Last administered on 12/04/16 10:21; Start 11/30/16 at 12:00 Vitamin B Complex 1 tab 1 tab DAILY PO Last administered on 12/04/16 10:20; Start 11/30/16 at 12:00 Ceftriaxone Sodium/Sodium Chloride (Rocephin/Iv Sodium Chloride 0.9% 50ml) 50 ml @ 100 mls/hr ONCE ONCE IV Last administered on 12/01/16 12:24; Start at 09:30; Stop 12/01/16 at 09:59; Status DC Cefpodoxime Proxetil (Vantin) 200 mg DAILY PO Last administered on 12/04/16 10 :21; Start 12/02/16 at 09:00 Al Hydroxide/Mg Hydroxide (Mylanta Plus Xs) 30 ml PRN Q6HRS PRN PO HEARTBURN / GAS Last administered on 12/01/16 20:40; Start 12/01/16 at 20:15 Calcium Carbonate/ Glycine 500 mg 500 mg PRN AFTMEALHC PRN PO INDIGESTION Last administered on 12/03/16 13:45; Start 12/01/16 at 20:15 Sodium Chloride 1,000 ml @ 75 mls/hr 1X ONCE IV Last administered on 13:07; Start 12/02/16 at 12:15; Stop 12/03/16 at 01:34; Status DC Sodium Chloride (Iv Sodium Chloride 0.9% 1000ml Bag) 1,000 ml @ 75 mls/hr [id number] IV Last administered on 12/03/16 20:22; Start 12/03/16 at 10:45 Heparin Sodium (Porcine) (Heparin Sodium) 10,000 unit STK-MED ONCE .ROUTE ; Start 12/04/16 at 08:45; Stop 12/04/16 at 08:46; Status DC Lidocaine/ Epinephrine 20 ml 20 ml STK-MED ONCE .ROUTE ; Start 12/04/16 at 08:45 ; Stop 12/04/16 at 08:46; Status DC Heparin Sodium/ Sodium Chloride 500 ml @ As Directed STK-MED ONCE .ROUTE ; Start 12/04/16 at 08:45; Stop 12/04/16 at 08:46; Status DC Fentanyl Citrate (Fentanyl 2ml Vial) 100 mcg STK-MED ONCE .ROUTE ; Start at 09:10; Stop 12/04/16 at 09:11; Status DC Midazolam HCl 2 mg 2 mg STK-MED ONCE .ROUTE ; Start 12/04/16 at 09:10; Stop at 09:11; Status DC Clindamycin Phosphate (Cleocin 600 Mg Premix) 50 ml @ As Directed STK-MED ONCE IV ; Start 12/04/16 at 09:16; Stop 12/04/16 at 09:17; Status DC Heparin Sodium/ Sodium Chloride 1,000 unit 1X ONCE IART Last administered on 09:48; Start 12/04/16 at 09:45; Stop 12/04/16 at 09:46; Status DC Midazolam HCl (Versed) 2 mg 1X ONCE IV Last administered on 12/04/16 09:49; Start 12/04/16 at 09:45; Stop 12/04/16 at 09:46; Status DC Fentanyl Citrate (Fentanyl 2ml Vial) 100 mcg 1X ONCE IV Last administered on 09:48; Start 12/04/16 at 09:45; Stop 12/04/16 at 09:46; Status DC Lidocaine/ Epinephrine (Xylocaine 1%-Epi 1:100,000) 9 ml 1X ONCE IJ Last administered on 12/04/16 09:48; Start 12/04/16 at 09:45; Stop 12/04/16 at 09:46 ; Status DC Heparin Sodium (Porcine) 4300 unit 4,300 unit 1X ONCE INT CAT Last administered on 12/04/16 09:48; Start 12/04/16 at 09:45; Stop 12/04/16 at 09:46 ; Status DC Clindamycin Phosphate (Cleocin 600 Mg Premix) 50 ml @ 100 mls/hr 1X ONCE IV Last administered on 12/04/16 09:49; Start 12/04/16 at 09:45; Stop 12/04/16 at 10:14; Status DC Active Scripts Active Reported Flovent 50MCG Diskus (Fluticasone Propionate) 50 Mcg Disk.w.dev 50 Mcg IH BID Imodium A-D (Loperamide Hcl) 1 Mg/7.5 Ml Liquid 2 Mg PO DAILY08 Norvasc (Amlodipine Besylate) 10 Mg Tablet 10 Mg PO DAILY08 Vitals/I & O Vital Sign - Last 24 Hours 12/03/16 12/03/16 12/03/16 12/03/16 15:00 19:00 20:23 22:55 Temp 98.4 98.3 98.2 98.4 98.3 98.2 Pulse 82 16 76 Resp 16 16 16 B/P 140/76 134/84 131/80 Pulse Ox 95 97 98 O2 Delivery Room Air Room Air Room Air Room Air 12/04/16 12/04/16 12/04/16 12/04/16 02:57 07:00 08:00 09:45 Temp 98.2 98.2 98.2 98.2 Pulse 73 67 84 84 Resp 16 16 16 B/P 132/80 131/72 97/54 Pulse Ox 100 98 100 O2 Delivery Room Air Room Air Nasal Cannula O2 Flow Rate 2.0 12/04/16 12/04/16 09:48 11:01 Temp 97.3 97.3 Pulse 75 Resp 16 16 B/P 122/68 Pulse Ox 100 96 O2 Delivery Nasal Cannula Room Air O2 Flow Rate 2.0 Intake and Output 12/03/16 12/03/16 12/04/16 15:00 23:00 07:00 Intake Total 480 ml 740 ml Balance 480 ml 740 ml LEONIDAS BARRETT MD Dec 04, 2016 12:05
--- NOTE | 2016-12-04 13:23 | PDOC ---
MODERATE SEDATION ASSESSMENT RISKS/ALTERNATIVES Risks/Alternatives Risks and alternatives of this type of sedation and procedure discussed with: RISK/ALTERNATIVES: Patient H & P ON CHART H & P H & P on chart and reviewed for co-morbid conditions and appropriate labs. H&P ON CHART: Yes STATUS PREG STATUS ASSESSED: N/A MEDS/ALLERGIES REVIEWED Meds/Allergies Reviewed Medications and Allergies including time and route of recently administered narcotics and sedatives. MEDS/ALLERGIES REVIEWED: Yes ASA RATING ASA RATING: II AIRWAY ASSESSMENT Airway Assessment Airway patency, oral function limitations, presence of caps, crowns, dentures, partials, and ability to extend neck assessed. AIRWAY ASSESSMENT: Yes MALLAMPATI SCORE MALLAMPATI SCORE: III PRE-SEDATION ASSESSMENT PRE-SEDATION ASSESSMENT: Yes EZEKIEL BONILLA MD Dec 04, 2016 13:23
[2016-12-04] MEDS: IV NORMAL SALINE 1000ML BAG 1,000 ML IV SCH ×2 (13:25→17:15)
--- NOTE | 2016-12-04 13:26 | PDOC ---
Exam Wire Inserter Wire Inserter Ruchi Stock Worker And Deliverer Stock Worker And Deliverer Arnav Hager Pre-Procedure Diagnosis Pre-Procedure Diagnosis Acute on chronic renal failure---new ESRD---needs ongoing HD---Temp to tunneled HDC requested by Renal. Post-Procedure Diagnosis Post-Procedure Diagnosis Same Procedure Performed Procedure Performed Removal rt IJ temp HDC Rt IJ tunneled HDC insertion---new venous access. Type of Anesthesia Type of Anesthesia Local + Mod sedation Estimated Blood Loss EBL: Minimal Specimens Specimans 14F 15cm rt IJ Schon temp HDC removed and discarded. Drain/Tubes Drains/Tubes Rt IJ 15.5F 28cm DuraMax tunneled HDC Condition of Patient Condition of Patient Stable. No apparent complication. Disposition Disposition From IR return to 574. F/u with Renal. OK to use new tunneled HDC. Full report to follow. EZEKIEL BONILLA MD Dec 04, 2016 13:26
[2016-12-04] MEDS: MAGNESIUM OXIDE 400 MG TABLET PO SCH (20:44)
[2016-12-04] MEDS: SODIUM BICARBONATE 650 MG TABLET. PO SCH (20:44)
[2016-12-04] MEDS: ACETAMINOPHEN 325 MG TABLET. PO PRN (22:18)
--- NOTE | 2016-12-04 23:50 | PDOC ---
Provider Note Provider Note RENAL F/U: HAIDERI. S : No new c/o O : Alert. VSS. Afebrile. Somnolent. Neck : Supple Lungs : Decreased bases CVS : RRR Abd: Soft, benign in appearance. Portly Ext: Stable edema Neuro : Grossly intact. A/P: ARF HYPERNATREMIA DEHYDRATION Supportive care Labs better/stable. No HD today. CPM. LIOR TERRY MD Dec 04, 2016 23:50
[2016-12-05] MEDS: IV NORMAL SALINE 1000ML BAG 1,000 ML IV SCH ×2 (05:43→16:05)
--- NOTE | 2016-12-05 06:14 | RAD ---
Removal of right IJ temporary hemodialysis catheter Ultrasound and fluoro guided placement of right IJ tunneled hemodialysis catheter Indication: 66-year-old female with acute on chronic renal failure. She needs ongoing hemodialysis. Conversion from temporary to tunneled hemodialysis catheter has been requested by renal. Fluoro time: 0.2 minutes Kerma-Area Product: 0.4 Gycm2 Moderate sedation: 18 minutes moderate sedation was provided utilizing a total of 2 mg Versed and 100 mcg fentanyl, IV. The patient was appropriately monitored by a qualified independent observer throughout the time of moderate sedation. Antibiotic: A single dose of Clindamycin was administered within 1 hour of the procedure start time. Cephalosporin was withheld due to allergy. Sterility: All elements of maximal sterile barrier technique, including the use of a cap, mask, sterile gown, sterile gloves, large sterile sheet, appropriate hand hygiene, and 2% chlorhexidine for cutaneous antisepsis (or acceptable alternative antiseptic per current guidelines) were utilized. Consent: The procedure was explained in its entirety to the patient and/or the patient's designated safety representative by a member of the treatment team. This included a discussion of risks and benefits and commonly accepted alternatives to the procedure, as well as expected consequences of no treatment at all. Discussion of risks included, but was not limited to, those that are most frequent and those that are rare, but possibly severe or life-threatening, as well as the possibility of unforeseen complications. Procedure: Informed consent was obtained from the patient. She was placed supine on the angiography table. Preliminary ultrasound examination of right neck revealed continued wide patency of right internal jugular vein, which was documented with a hard copy ultrasound image. The indwelling right IJ 14 Angolan 15 cm Schon temporary hemodialysis catheter was then easily removed utilizing gentle traction. Hemostasis was achieved with manual pressure over right internal jugular vein. Right neck and upper chest were then prepped and draped in the usual sterile fashion, utilizing all elements of maximal sterile barrier technique, as described above. Moderate sedation was provided with IV Versed and Fentanyl. 600 mg clindamycin was given IV, prophylactically. Using aseptic technique and local anesthesia, a small skin incision was made lateral to right internal jugular vein, just above clavicle. Using aseptic technique, local anesthesia, and direct ultrasound guidance, a micropuncture needle was successfully introduced into right internal jugular vein. The micropuncture needle was then exchanged over a microguidewire for a micropuncture sheath, through which an Amplatz wire was advanced into IVC, under fluoroscopic control. A second small skin incision was then made along upper anterior aspect of right chest. A subcutaneous tunnel was then fashioned between the right chest and supraclavicular incisions. A 15.5 F 28 cm Dura Max dialysis catheter was pulled through the subcutaneous tunnel from inferior to superior, utilizing the tunneling device provided. The right IJ venostomy tract was then sequentially dilated and the 15.5 Angolan dialysis catheter was easily advanced centrally through a 16 Angolan peel-away sheath, and was positioned with its tip at the level of upper right atrium utilizing fluoroscopic guidance. This catheter was demonstrated to flush and aspirate normally, was packed, and was secured at the right chest exit site utilizing 2-0 Prolene and sterile dressing. The small supraclavicular incision was closed with 4-0 Vicryl, Steri-Strips, and sterile dressing. Patient tolerated the procedure well without apparent complication. Satisfactory position of the dialysis catheter was confirmed with a single fluoroscopic spot image. Impression: Successful, uneventful ultrasound and fluoro guided placement of right IJ 15.5 F 28 cm Dura Max tunneled hemodialysis catheter, following removal of right IJ 14 Angolan 15 cm Schon temporary hemodialysis catheter, as described.
[2016-12-05 07:00] VITALS: BP 144/77
[2016-12-05] MEDS: FLUTICASONE 50MCG/NASAL SPRAY 16GM BOTTLE. NS SCH (08:59)
[2016-12-05] MEDS: amLODIPine BESYLATE 10 MG TABLET PO SCH (09:00)
[2016-12-05] MEDS: SODIUM BICARBONATE 650 MG TABLET. PO SCH ×2 (09:00→21:28)
[2016-12-05] MEDS: LOPERAMIDE 2 MG CAPSULE PO SCH (09:01)
[2016-12-05] MEDS: CALCITRIOL 0.25 MCG CAPSULE. PO SCH (09:01)
[2016-12-05] MEDS: VITAMIN B12,B9,B6 COMPLEX 1 TABLET. PO SCH (09:01)
[2016-12-05] MEDS: IRON POLYSACCHARIDE COMPLEX 150 MG CAPSULE PO SCH (09:01)
[2016-12-05] MEDS: MAGNESIUM OXIDE 400 MG TABLET PO SCH (09:01)
[2016-12-05] MEDS: CEFPODOXIME PROXETIL 100 MG TABLET. PO SCH (09:01)
[2016-12-05 09:50] LABS: ALBUMIN 2.7 g/dL (3.4-5.0); ALBUMIN/GLOBULIN RATIO 0.8 (1.0-1.7); CREATININE 2.4 mg/dL (0.6-1.0); GFR 20.1; POTASSIUM 3.9 mmol/L (3.5-5.1); TOTAL BILIRUBIN 0.2 mg/dL (0.2-1.0); TOTAL PROTEIN 6.2 g/dL (6.4-8.2)
--- NOTE | 2016-12-05 10:04 | PDOC ---
SUBJECTIVE ROS KEYONNA/ ATN - CKD IV Doing and feeling much better CVS: no Orthopnea, no CP RESP: no SOB, no WILEY GI: no Nausea, no Vomiting : no Dysuria, no Urgency OBJECTIVE Vital Signs Vital Signs Date Time Temp Pulse Resp B/P Pulse Ox O2 Delivery O2 Flow Rate FiO2 12/05/16 09:00 90 144/77 12/05/16 08:20 Room Air 12/05/16 07:00 97.8 16 95 97.8 12/04/16 09:48 2.0 I & 0 Intake and Output 12/05/16 07:00 Intake Total 2060 ml Balance 2060 ml Intake Oral 1160 ml IV Total 900 ml # Voids 4 # Bowel Movements 2 PHYSICAL EXAM Physical Exam General Appearance: Awake Alert Oriented x 3 In no obvious Distress Eyes: VIsion Unchanged Conjunctiva Normal EN: No EN Drainage Mucous Memb. moist Neck: no JVD min JVP Supple no Thyromegaly CVS: S1 S2 ? Murmur No Gallop No Rub no Edema Resp: no Rales no Rhonchi no Acc. Muscle use GI: BS hypoactive NO Bruit non Tender Non Distended : no CVA tenderness; no Suprapubic Tenderness Assessment & Plan ARF/ ? ATN: (possible etios incldue VMN, NSAIDs and ATN) ? Pyelonephritis and AIn cannot be ruled out although not seen on CT. watch trend of Creat ( which appears to be stable for now and close to previous baseline from Jul 2016 ) . Current fluid and E-lyte status does not necessitate emergent need for dialysis. Will re-evaluate for dialysis in the am ? ESRD cannot be ruled out since basline GFR was in low 20s anyways. will check 24 hr Urine for CrCl/ Tp ? CKD III/ IV at baseline : Based on Us report and Previous Creat of 1.8-2.3 in the past (07/2016) Hypocalcemia - better after Calcitriol and Vit D; ^PTH - as above E.Coli UTI - on rocephin per ID. ? pyelo OA Proteinuria - < 1gm for now, ? reval As OP Anemia: remains on Epogen HTN: Current BP meds reviewed. may need addition of BP meds in am if remains in current range. Discussed Plan of Care and prognosis etc. at length with pt who is willing to proceed with OP HD if needed COMMENT/RELEVANT DATA Meds Current Medications Medications (Trade) Dose Ordered Sig/Rebecca Start Time Stop Time Status Last Admin Dose Admin Acetaminophen (Tylenol) 500 mg 1X PRN PRN 11/28/16 08:30 11/29/16 08:29 DC Acetaminophen 650 mg 650 mg PRN Q4HRS PRN 11/26/16 20:45 11/27/16 20:44 DC Al Hydroxide/Mg Hydroxide (Mylanta Plus Xs) 30 ml PRN Q6HRS PRN 12/01/16 20:15 12/01/16 20:40 30 ML Albumin Human (Albuminar) 200 ml @ 200 mls/hr 1X PRN PRN 11/28/16 08:30 11/28/16 14:29 DC Amlodipine Besylate (Norvasc) 10 mg DAILY08 11/28/16 08:00 12/05/16 09:00 10 MG Calcitriol (Rocaltrol) 0.25 mcg DAILY 11/29/16 12:00 12/05/16 09:01 0.25 MCG Calcium Carbonate/ Glycine 500 mg 500 mg PRN AFTMEALHC PRN 12/01/16 20:15 12/03/16 13:45 500 MG Calcium Chloride/ Sodium Chloride (Iv Sodium Chloride 0.9% 100ml) 120 ml @ 240 mls/hr 1X ONCE 11/29/16 12:30 11/29/16 12:59 DC 11/29/16 15:34 240 MLS/HR Cefpodoxime Proxetil (Vantin) 200 mg DAILY 12/02/16 09:00 12/05/16 09:01 200 MG Ceftriaxone Sodium/Sodium Chloride (Rocephin/Iv Sodium Chloride 0.9% 50ml) 50 ml @ 100 mls/hr ONCE ONCE 12/01/16 09:30 12/01/16 09:59 DC 12/01/16 12:24 100 MLS/HR Clindamycin Phosphate (Cleocin 600 Mg Premix) 50 ml @ 100 mls/hr 1X ONCE 12/04/16 09:45 12/04/16 10:14 DC 12/04/16 09:49 100 MLS/HR Darbepoetin Jono (Aranesp) 60 mcg WEEKLYHS 11/29/16 21:00 11/29/16 20:44 60 MCG Diphenhydramine HCl (Benadryl) 25 mg 1X PRN PRN 11/28/16 08:30 11/29/16 08:29 DC Ergocalciferol 21112 unit 50,000 unit WEEKLY 11/29/16 12:00 03/07/17 09:01 11/29/16 12:56 50,000 UNIT Fentanyl Citrate (Fentanyl 2ml Vial) 100 mcg 1X ONCE 12/04/16 09:45 12/04/16 09:46 DC 12/04/16 09:48 100 MCG Fluticasone Propionate (Flonase) 2 spray DAILY 11/27/16 09:00 12/05/16 08:59 2 SPRAY Heparin Sodium (Porcine) (Heparin Sodium) 10,000 unit STK-MED ONCE 12/04/16 08:45 12/04/16 08:46 DC Heparin Sodium (Porcine) 4300 unit 4,300 unit 1X ONCE 12/04/16 09:45 12/04/16 09:46 DC 12/04/16 09:48 4,300 UNIT Heparin Sodium/ Sodium Chloride 1,000 unit 1X ONCE 12/04/16 09:45 12/04/16 09:46 DC 12/04/16 09:48 1,000 UNIT Info (PHARMACY MONITORING -- do not chart) 1 each PRN DAILY PRN 11/27/16 17:45 Cancel Info 1 each 1 each PRN DAILY PRN 11/28/16 08:30 Iohexol (Omnipaque 240 Mg/ml) 30 ml 1X ONCE 11/27/16 13:00 11/27/16 13:01 DC Lidocaine/ Epinephrine (Xylocaine 1%-Epi 1:100,000) 9 ml 1X ONCE 12/04/16 09:45 12/04/16 09:46 DC 12/04/16 09:48 9 ML Lidocaine/Sodium Bicarbonate (Buffered Lidocaine 1%) 3 ml 1X ONCE 11/27/16 15:30 11/27/16 15:31 DC 11/27/16 16:28 3 ML Loperamide HCl 2 mg 2 mg DAILY08 11/27/16 08:45 12/05/16 09:01 2 MG Magnesium Oxide (Magnesium Oxide) 400 mg DAILY 12/04/16 20:00 12/05/16 09:01 400 MG Magnesium Sulfate/ Dextrose 50 ml @ 25 mls/hr 1X ONCE 11/28/16 09:30 11/28/16 11:29 DC 11/28/16 18:32 25 MLS/HR Magnesium Sulfate/ Dextrose (Magnesium Sulfate PREMIX 2GM) 50 ml @ 25 mls/hr PRN DAILY PRN 11/27/16 11:30 UNV Midazolam HCl (Versed) 2 mg 1X ONCE 12/04/16 09:45 12/04/16 09:46 DC 12/04/16 09:49 2 MG Ondansetron HCl (Zofran) 4 mg PRN Q6HRS PRN 11/27/16 08:28 11/28/16 15:56 4 MG Polysaccharide Iron Complex (Niferex 150) 150 mg DAILY 11/30/16 12:00 12/05/16 09:01 150 MG Potassium Chloride 40 meq 40 meq 1X ONCE 11/28/16 07:00 11/28/16 07:01 DC 11/28/16 11:36 40 MEQ Potassium Phosphate 13.6 mmol/Sodium Chloride 104.5333 ml @ 52.267 m... Q2H 11/28/16 09:30 11/28/16 15:29 DC 11/28/16 20:51 52.267 MLS/HR Sodium Bicarbonate 100 meq/Dextrose 1,100 ml @ 125 mls/hr Q8H48M 11/27/16 06:30 11/27/16 06:35 DC 11/27/16 06:25 125 MLS/HR Sodium Bicarbonate/ Dextrose 1,100 ml @ 125 mls/hr Q8H48M 11/27/16 07:00 11/29/16 11:42 DC 11/28/16 09:24 125 MLS/HR Sodium Bicarbonate (Sodium Bicarbonate) 325 mg BID 12/04/16 21:00 12/05/16 09:00 325 MG Sodium Chloride (Iv Sodium Chloride 0.9% 500ml Bag) 500 ml @ 0 mls/hr PRN QID PRN 11/29/16 11:45 12/01/16 12:17 DC Sodium Chloride (Iv Sodium Chloride 0.9% 1000ml Bag) 1,000 ml @ 75 mls/hr [id number] 12/03/16 10:45 12/05/16 05:43 75 MLS/HR Vitamin B Complex 1 tab 1 tab DAILY 11/30/16 12:00 12/05/16 09:01 1 TAB Lab Laboratory Tests Test 12/05/16 08:45 Sodium Level 143mmol/L (136-145) Potassium Level 3.9mmol/L (3.5-5.1) Chloride Level 111mmol/L (98-107) Carbon Dioxide Level 22mmol/L (21-32) Anion Gap 10 (6-14) Blood Urea Nitrogen 26mg/dL (7-20) Creatinine 2.4mg/dL (0.6-1.0) Estimated GFR (Cockcroft-Gault) 20.1 BUN/Creatinine Ratio 11 (6-20) Glucose Level 110mg/dL (70-99) Calcium Level 8.0mg/dL (8.5-10.1) Magnesium Level 1.6mg/dL (1.8-2.4) Total Bilirubin 0.2mg/dL (0.2-1.0) Aspartate Amino Transf (AST/SGOT) 14U/L (15-37) Alanine Aminotransferase (ALT/SGPT) 12U/L (14-59) Alkaline Phosphatase 123U/L (46-116) Total Protein 6.2g/dL (6.4-8.2) Albumin 2.7g/dL (3.4-5.0) Albumin/Globulin Ratio 0.8 (1.0-1.7) RUTH MONTANO MD Dec 05, 2016 10:04
[2016-12-05] MEDS: MAGNESIUM SULFATE 2GM 50 ML IV PRN (10:12)
[2016-12-05 10:52] VITALS: BP 120/67
[2016-12-05 15:06] VITALS: BP 116/64
[2016-12-05 19:00] VITALS: BP 133/70
[2016-12-05] MEDS: MAG HYDROX/ALUMINUM HYD/SIMETH 30 ML ORAL.SUSP PO PRN (21:36)
--- NOTE | 2016-12-05 22:50 | PDOC ---
PROGRESS NOTES Chief Complaint Chief Complaint 1. ESRD now new HD 2. NEW HD (11/28/16) but now doing well off, 3. Anemia of CKD 3. HTN, controlled 4. UTI E COLI 5. Urinary incontinence 6. Gen weakness - acquired 7. Hypernatremia resolved. Plan S/P Rt IJ tunneled HDC insertion HD per nephrology labs reviewed clinically improving Monitor renal functions abx per id 24 Hr urine collection appreciate nephrology recommendations PT/OT renal diet History of Present Illness History of Present Illness no fever doing better making some urine Vitals Vitals Vital Signs Date Time Temp Pulse Resp B/P Pulse Ox O2 Delivery O2 Flow Rate FiO2 12/05/16 19:00 98.8 85 18 133/70 94 Room Air 98.8 12/04/16 09:48 2.0 Physical Exam General: Alert, Oriented X3, Cooperative, No acute distress Heart: Normal S1, Normal S2 Lungs: Clear Abdomen: Normal bowel sounds, Soft, No tenderness, No hepatosplenomegaly, No masses Extremities: No clubbing, No cyanosis, No edema, Normal pulses, No tenderness/ swelling Skin: No rashes, No breakdown, No significant lesion Labs LABS Laboratory Tests Test 12/05/16 08:45 Sodium Level 143mmol/L (136-145) Potassium Level 3.9mmol/L (3.5-5.1) Chloride Level 111mmol/L (98-107) Carbon Dioxide Level 22mmol/L (21-32) Anion Gap 10 (6-14) Blood Urea Nitrogen 26mg/dL (7-20) Creatinine 2.4mg/dL (0.6-1.0) Estimated GFR (Cockcroft-Gault) 20.1 BUN/Creatinine Ratio 11 (6-20) Glucose Level 110mg/dL (70-99) Calcium Level 8.0mg/dL (8.5-10.1) Magnesium Level 1.6mg/dL (1.8-2.4) Total Bilirubin 0.2mg/dL (0.2-1.0) Aspartate Amino Transf (AST/SGOT) 14U/L (15-37) Alanine Aminotransferase (ALT/SGPT) 12U/L (14-59) Alkaline Phosphatase 123U/L (46-116) Total Protein 6.2g/dL (6.4-8.2) Albumin 2.7g/dL (3.4-5.0) Albumin/Globulin Ratio 0.8 (1.0-1.7) Vitamin B12 Level 993pg/mL (247-911) Assessment and Plan Assessmemt and Plan Problems Medical Problems: (1) Acute on chronic renal failure Status: Acute (2) Hypocalcemia Status: Acute (3) Hypomagnesemia Status: Acute (4) Metabolic encephalopathy Status: Acute (5) Normocytic anemia Status: Acute Problems: Comment Review of Relevant I have reviewed the following items yoel (where applicable) has been applied. Labs Laboratory Tests Test 12/04/16 04:50 12/04/16 06:50 12/04/16 08:00 12/05/16 08:45 Sodium Level 140mmol/L (136-145) 143mmol/L (136-145) Potassium Level 4.3mmol/L (3.5-5.1) 3.9mmol/L (3.5-5.1) Chloride Level 111mmol/L (98-107) 111mmol/L (98-107) Carbon Dioxide Level 16mmol/L (21-32) 22mmol/L (21-32) Anion Gap 13 (6-14) 10 (6-14) Blood Urea Nitrogen 28mg/dL (7-20) 26mg/dL (7-20) Creatinine 2.3mg/dL (0.6-1.0) 2.4mg/dL (0.6-1.0) Estimated GFR (Cockcroft-Gault) 21.2 20.1 Glucose Level 82mg/dL (70-99) 110mg/dL (70-99) Calcium Level 7.9mg/dL (8.5-10.1) 8.0mg/dL (8.5-10.1) Phosphorus Level 4.1mg/dL (2.6-4.7) Albumin 2.4g/dL (3.4-5.0) 2.7g/dL (3.4-5.0) White Blood Count 6.8x10^3/uL (4.0-11.0) Red Blood Count 2.92x10^6/uL (3.50-5.40) Hemoglobin 8.2g/dL (12.0-15.5) Hematocrit 26.9% (36.0-47.0) Mean Corpuscular Volume 92fL (79-100) Mean Corpuscular Hemoglobin 28pg (25-35) Mean Corpuscular Hemoglobin Concent 30g/dL (31-37) Red Cell Distribution Width 14.6% (11.5-14.5) Platelet Count 123x10^3/uL (140-400) Prothrombin Time 13.5SEC (11.7-14.0) Prothromb Time International Ratio 1.1 (0.8-1.1) BUN/Creatinine Ratio 11 (6-20) Magnesium Level 1.6mg/dL (1.8-2.4) Total Bilirubin 0.2mg/dL (0.2-1.0) Aspartate Amino Transf (AST/SGOT) 14U/L (15-37) Alanine Aminotransferase (ALT/SGPT) 12U/L (14-59) Alkaline Phosphatase 123U/L (46-116) Total Protein 6.2g/dL (6.4-8.2) Albumin/Globulin Ratio 0.8 (1.0-1.7) Vitamin B12 Level 993pg/mL (247-911) Laboratory Tests Test 12/05/16 08:45 Sodium Level 143mmol/L (136-145) Potassium Level 3.9mmol/L (3.5-5.1) Chloride Level 111mmol/L (98-107) Carbon Dioxide Level 22mmol/L (21-32) Anion Gap 10 (6-14) Blood Urea Nitrogen 26mg/dL (7-20) Creatinine 2.4mg/dL (0.6-1.0) Estimated GFR (Cockcroft-Gault) 20.1 BUN/Creatinine Ratio 11 (6-20) Glucose Level 110mg/dL (70-99) Calcium Level 8.0mg/dL (8.5-10.1) Magnesium Level 1.6mg/dL (1.8-2.4) Total Bilirubin 0.2mg/dL (0.2-1.0) Aspartate Amino Transf (AST/SGOT) 14U/L (15-37) Alanine Aminotransferase (ALT/SGPT) 12U/L (14-59) Alkaline Phosphatase 123U/L (46-116) Total Protein 6.2g/dL (6.4-8.2) Albumin 2.7g/dL (3.4-5.0) Albumin/Globulin Ratio 0.8 (1.0-1.7) Vitamin B12 Level 993pg/mL (247-911) Microbiology 11/28/16 Urine Culture - Final, Complete 11/28/16 Urine Culture Result 1 (OLAMIDE) - Final, Complete 11/28/16 Antimicrobic Susceptibility - Final, Complete Medications Current Medications Sodium Chloride (Iv Sodium Chloride 0.9% 1000ml Bag) 1,000 ml @ 100 mls/hr 1X ONCE IV Last administered on 11/26/16 19:38; Start 11/26/16 at 19:30; Stop at 05:29; Status DC Ondansetron HCl 4 mg 4 mg PRN Q8HRS PRN IV NAUSEA/VOMITING; Start 11/26/16 at 20:45; Stop 11/27/16 at 08:29; Status DC Sodium Chloride (Iv Sodium Chloride 0.9% 1000ml Bag) 1,000 ml @ 125 mls/hr Q8H IV Last administered on 11/27/16 04:53; Start 11/26/16 at 20:31; Stop at 06:39; Status DC Acetaminophen 650 mg 650 mg PRN Q4HRS PRN PO FEVER; Start 11/26/16 at 20:45; Stop 11/27/16 at 20:44; Status DC Sodium Bicarbonate 100 meq/Dextrose 1,100 ml @ 125 mls/hr Q8H48M IV Last administered on 11/27/16 06:25; Start 11/27/16 at 06:30; Stop 11/27/16 at 06:35 ; Status DC Sodium Bicarbonate/ Dextrose 1,100 ml @ 125 mls/hr Q8H48M IV Last administered on 11/28/16 09:24; Start 11/27/16 at 07:00; Stop 11/29/16 at 11:42 ; Status DC Ondansetron HCl (Zofran) 4 mg PRN Q6HRS PRN IV NAUSEA/VOMITING Last administered on 11/28/16 15:56; Start 11/27/16 at 08:28 Amlodipine Besylate (Norvasc) 10 mg DAILY08 PO Last administered on 12/05/16 09:00; Start 11/28/16 at 08:00 Fluticasone Propionate (Flonase) 2 spray DAILY NS Last administered on 08:59; Start 11/27/16 at 09:00 Loperamide HCl 2 mg 2 mg DAILY08 PO Last administered on 12/05/16 09:01; Start 11/27/16 at 08:45 Magnesium Sulfate/ Dextrose 50 ml @ 25 mls/hr PRN DAILY PRN IV for Mag < 1.7 on am labs Last administered on 12/05/16 10:12; Start 11/27/16 at 11:30 Magnesium Sulfate/ Dextrose (Magnesium Sulfate PREMIX 2GM) 50 ml @ 25 mls/hr PRN DAILY PRN IV for Mag < 1.7 on am labs; Start 11/27/16 at 11:30; Status UNV Iohexol (Omnipaque 240 Mg/ml) 30 ml 1X ONCE PO ; Start 11/27/16 at 13:00; Stop 11/27/16 at 13:01; Status DC Lidocaine/Sodium Bicarbonate (Buffered Lidocaine 1%) 3 ml 1X ONCE IJ Last administered on 11/27/16 16:28; Start 11/27/16 at 15:30; Stop 11/27/16 at 15:31 ; Status DC Heparin Sodium/ Sodium Chloride 60 unit 1X ONCE IV Last administered on 16:28; Start 11/27/16 at 15:30; Stop 11/27/16 at 15:31; Status DC Heparin Sodium (Porcine) (Heparin Sodium) 2,500 unit 1X ONCE INT CAT Last administered on 11/27/16 16:29; Start 11/27/16 at 15:30; Stop 11/27/16 at 15:31 ; Status DC Heparin Sodium (Porcine) 47942 unit 10,000 unit STK-MED ONCE .ROUTE ; Start at 15:58; Stop 11/27/16 at 15:59; Status DC Sodium Chloride 1,000 ml @ 1,000 mls/hr PRN Q1HR PRN IV hypotension; Start at 17:38; Stop 12/01/16 at 12:17; Status DC Albumin Human (Albuminar) 200 ml @ 200 mls/hr 1X PRN PRN IV Hypotension; Start 11/27/16 at 17:45; Stop 11/27/16 at 23:44; Status DC Info (PHARMACY MONITORING -- do not chart) 1 each PRN DAILY PRN MC SEE COMMENTS ; Start 11/27/16 at 17:45; Status Cancel Acetaminophen (Tylenol) 650 mg PRN Q6HRS PRN PO HEADACHE Last administered on 22:18; Start 11/27/16 at 23:00 Potassium Chloride 40 meq 40 meq 1X ONCE PO Last administered on 11/28/16 11: 36; Start 11/28/16 at 07:00; Stop 11/28/16 at 07:01; Status DC Sodium Chloride 1,000 ml @ 1,000 mls/hr Q1H PRN IV hypotension; Start 11/28/16 at 08:28; Stop 11/28/16 at 14:27; Status DC Albumin Human (Albuminar) 200 ml @ 200 mls/hr 1X PRN PRN IV Hypotension; Start 11/28/16 at 08:30; Stop 11/28/16 at 14:29; Status DC Acetaminophen (Tylenol) 500 mg 1X PRN PRN PO MILD PAIN / TEMP; Start 11/28/16 at 08:30; Stop 11/29/16 at 08:29; Status DC Diphenhydramine HCl (Benadryl) 25 mg 1X PRN PRN IV ITCHING; Start 11/28/16 at 08:30; Stop 11/29/16 at 08:29; Status DC Diphenhydramine HCl 25 mg 25 mg 1X PRN PRN IV ITCHING; Start 11/28/16 at 08:30 ; Stop 11/29/16 at 08:29; Status DC Sodium Chloride (Iv Sodium Chloride 0.9% 1000ml Bag) 1,000 ml @ 400 mls/hr Q2H30M PRN IV PATENCY; Start 11/28/16 at 08:28; Stop 11/28/16 at 20:27; Status DC Info 1 each 1 each PRN DAILY PRN MC SEE COMMENTS; Start 11/28/16 at 08:30 Magnesium Sulfate/ Dextrose 50 ml @ 25 mls/hr 1X ONCE IV Last administered on 11/28/16t 18:32; Start 11/28/16 at 09:30; Stop 11/28/16 at 11:29; Status DC Potassium Phosphate 13.6 mmol/Sodium Chloride 104.5333 ml @ 52.267 m... Q2H IV Last administered on 11/28/16 20:51; Start 11/28/16 at 09:30; Stop 11/28/16 at 15:29; Status DC Sodium Chloride 500 ml @ 0 mls/hr PRN QID PRN IV UO< 30cc/hr over previous 6hrs ; Start 11/29/16 at 11:45; Stop 12/01/16 at 12:17; Status DC Sodium Chloride (Iv Sodium Chloride 0.9% 1000ml Bag) 1,000 ml @ 125 mls/hr Q8H IV Last administered on 11/30/16 22:54; Start 11/29/16 at 11:45; Stop at 12:17; Status DC Calcitriol (Rocaltrol) 0.25 mcg DAILY PO Last administered on 12/05/16 09:01; Start 11/29/16 at 12:00 Ergocalciferol 66160 unit 50,000 unit WEEKLY PO Last administered on 11/29/16 12:56; Start 11/29/16 at 12:00; Stop 03/07/17 at 09:01 Calcium Chloride/ Sodium Chloride (Iv Sodium Chloride 0.9% 100ml) 120 ml @ 240 mls/hr 1X ONCE IV Last administered on 11/29/16 15:34; Start 11/29/16 at 12: 30; Stop 11/29/16 at 12:59; Status DC Darbepoetin Jono 60 mcg 60 mcg WEEKLYHS SQ Last administered on 11/29/16 20:44 ; Start 11/29/16 at 21:00 Ceftriaxone Sodium/Sodium Chloride (Rocephin/Iv Sodium Chloride 0.9% 50ml) 50 ml @ 100 mls/hr Q24H IV Last administered on 11/29/16 16:21; Start 11/29/16 at 14:00; Stop 12/01/16 at 09:13; Status DC Polysaccharide Iron Complex (Niferex 150) 150 mg DAILY PO Last administered on 12/05/16 09:01; Start 11/30/16 at 12:00 Vitamin B Complex 1 tab 1 tab DAILY PO Last administered on 12/05/16 09:01; Start 11/30/16 at 12:00 Ceftriaxone Sodium/Sodium Chloride (Rocephin/Iv Sodium Chloride 0.9% 50ml) 50 ml @ 100 mls/hr ONCE ONCE IV Last administered on 12/01/16 12:24; Start at 09:30; Stop 12/01/16 at 09:59; Status DC Cefpodoxime Proxetil (Vantin) 200 mg DAILY PO Last administered on 12/05/16 09 :01; Start 12/02/16 at 09:00 Al Hydroxide/Mg Hydroxide (Mylanta Plus Xs) 30 ml PRN Q6HRS PRN PO HEARTBURN / GAS Last administered on 12/05/16 21:36; Start 12/01/16 at 20:15 Calcium Carbonate/ Glycine 500 mg 500 mg PRN AFTMEALHC PRN PO INDIGESTION Last administered on 12/03/16 13:45; Start 12/01/16 at 20:15 Sodium Chloride 1,000 ml @ 75 mls/hr 1X ONCE IV Last administered on 13:07; Start 12/02/16 at 12:15; Stop 12/03/16 at 01:34; Status DC Sodium Chloride (Iv Sodium Chloride 0.9% 1000ml Bag) 1,000 ml @ 75 mls/hr [id number] IV Last administered on 12/05/16 16:05; Start 12/03/16 at 10:45 Heparin Sodium (Porcine) (Heparin Sodium) 10,000 unit STK-MED ONCE .ROUTE ; Start 12/04/16 at 08:45; Stop 12/04/16 at 08:46; Status DC Lidocaine/ Epinephrine 20 ml 20 ml STK-MED ONCE .ROUTE ; Start 12/04/16 at 08:45 ; Stop 12/04/16 at 08:46; Status DC Heparin Sodium/ Sodium Chloride 500 ml @ As Directed STK-MED ONCE .ROUTE ; Start 12/04/16 at 08:45; Stop 12/04/16 at 08:46; Status DC Fentanyl Citrate (Fentanyl 2ml Vial) 100 mcg STK-MED ONCE .ROUTE ; Start at 09:10; Stop 12/04/16 at 09:11; Status DC Midazolam HCl 2 mg 2 mg STK-MED ONCE .ROUTE ; Start 12/04/16 at 09:10; Stop at 09:11; Status DC Clindamycin Phosphate (Cleocin 600 Mg Premix) 50 ml @ As Directed STK-MED ONCE IV ; Start 12/04/16 at 09:16; Stop 12/04/16 at 09:17; Status DC Heparin Sodium/ Sodium Chloride 1,000 unit 1X ONCE IART Last administered on 09:48; Start 12/04/16 at 09:45; Stop 12/04/16 at 09:46; Status DC Midazolam HCl (Versed) 2 mg 1X ONCE IV Last administered on 12/04/16 09:49; Start 12/04/16 at 09:45; Stop 12/04/16 at 09:46; Status DC Fentanyl Citrate (Fentanyl 2ml Vial) 100 mcg 1X ONCE IV Last administered on 09:48; Start 12/04/16 at 09:45; Stop 12/04/16 at 09:46; Status DC Lidocaine/ Epinephrine (Xylocaine 1%-Epi 1:100,000) 9 ml 1X ONCE IJ Last administered on 12/04/16 09:48; Start 12/04/16 at 09:45; Stop 12/04/16 at 09:46 ; Status DC Heparin Sodium (Porcine) 4300 unit 4,300 unit 1X ONCE INT CAT Last administered on 12/04/16 09:48; Start 12/04/16 at 09:45; Stop 12/04/16 at 09:46 ; Status DC Clindamycin Phosphate (Cleocin 600 Mg Premix) 50 ml @ 100 mls/hr 1X ONCE IV Last administered on 12/04/16 09:49; Start 12/04/16 at 09:45; Stop 12/04/16 at 10:14; Status DC Sodium Bicarbonate (Sodium Bicarbonate) 325 mg BID PO Last administered on 12/05 21:28; Start 12/04/16 at 21:00 Magnesium Oxide (Magnesium Oxide) 400 mg DAILY PO Last administered on 09:01; Start 12/04/16 at 20:00 Active Scripts Active Reported Flovent 50MCG Diskus (Fluticasone Propionate) 50 Mcg Disk.w.dev 50 Mcg IH BID Imodium A-D (Loperamide Hcl) 1 Mg/7.5 Ml Liquid 2 Mg PO DAILY08 Norvasc (Amlodipine Besylate) 10 Mg Tablet 10 Mg PO DAILY08 Vitals/I & O Vital Sign - Last 24 Hours 12/05/16 12/05/16 12/05/16 12/05/16 07:00 08:20 09:00 10:52 Temp 97.8 98.1 97.8 98.1 Pulse 90 90 82 Resp 16 16 B/P 144/77 144/77 120/67 Pulse Ox 95 97 O2 Delivery Room Air Room Air Room Air 12/05/16 12/05/16 15:06 19:00 Temp 98.9 98.8 98.9 98.8 Pulse 83 85 Resp 18 B/P 116/64 133/70 Pulse Ox 98 94 O2 Delivery Room Air Room Air Intake and Output 12/04/16 12/04/16 12/05/16 15:00 23:00 07:00 Intake Total 1220 ml 240 ml 600 ml Balance 1220 ml 240 ml 600 ml LEONIDAS BARRETT MD Dec 05, 2016 22:50
[2016-12-05 22:53] VITALS: BP 128/69
[2016-12-06] MEDS: IV NORMAL SALINE 1000ML BAG 1,000 ML IV SCH ×2 (05:25→17:14)
[2016-12-06 07:00] VITALS: BP 108/81
[2016-12-06] MEDS: FLUTICASONE 50MCG/NASAL SPRAY 16GM BOTTLE. NS SCH (08:15)
[2016-12-06] MEDS: SODIUM BICARBONATE 650 MG TABLET. PO SCH ×2 (08:16→20:26)
[2016-12-06] MEDS: CEFPODOXIME PROXETIL 100 MG TABLET. PO SCH (08:16)
[2016-12-06] MEDS: MAGNESIUM OXIDE 400 MG TABLET PO SCH (08:17)
[2016-12-06] MEDS: VITAMIN B12,B9,B6 COMPLEX 1 TABLET. PO SCH (08:17)
[2016-12-06] MEDS: LOPERAMIDE 2 MG CAPSULE PO SCH (08:17)
[2016-12-06] MEDS: IRON POLYSACCHARIDE COMPLEX 150 MG CAPSULE PO SCH (08:17)
[2016-12-06] MEDS: CALCITRIOL 0.25 MCG CAPSULE. PO SCH (08:17)
[2016-12-06] MEDS: ERGOCALCIFEROL (VITAMIN D2) 50,000 UNIT CAPSULE. PO SCH (08:17)
[2016-12-06] MEDS: amLODIPine BESYLATE 10 MG TABLET PO SCH (08:18)
[2016-12-06] MEDS ORDERED: MAGNESIUM SULFATE 2GM 50 ML IV PRN (10:15)
[2016-12-06 11:00] VITALS: BP 119/64
--- NOTE | 2016-12-06 11:50 | PDOC ---
SUBJECTIVE ROS CKD IV Doign and feeling much better CVS: no Orthopnea, no CP RESP: no SOB, no WILEY GI: no Nausea, no Vomiting : no Dysuria, no Urgency OBJECTIVE Vital Signs Vital Signs Date Time Temp Pulse Resp B/P Pulse Ox O2 Delivery O2 Flow Rate FiO2 12/06/16 11:00 98.3 83 20 119/64 97 Room Air 98.3 12/06/16 08:15 2.0 I & 0 Intake and Output 12/06/16 07:00 Intake Total 1460 ml Output Total 800 ml Balance 660 ml Intake Oral 1460 ml Output Urine Total 800 ml PHYSICAL EXAM Physical Exam General Appearance: Awake Alert Oriented x 3 In no obvious Distress Eyes: VIsion Unchanged Conjunctiva Normal EN: No EN Drainage Mucous Memb. moist Neck: no JVD min JVP Supple no Thyromegaly CVS: S1 S2 ? Murmur No Gallop No Rub no Edema Resp: no Rales no Rhonchi no Acc. Muscle use GI: BS hypoactive NO Bruit non Tender Non Distended : no CVA tenderness; no Suprapubic Tenderness Assessment & Plan ARF/ ? ATN: (possible etios incldue VMN, NSAIDs and ATN) this appears to have resolved CKD IV at baseline : await 24 hr Urine for CrCl/ Tp to determine if she should ct with HD or D/c HD cath and go home with close f/up in our office Proteinuria - < 1gm for now, ? reval As OP Anemia: remains on Epogen HTN: Current BP meds reviewed. may need addition of BP meds in am if remains in current range. Discussed Plan of Care and prognosis etc. at length with pt who is willing to proceed with OP HD if needed. COMMENT/RELEVANT DATA Meds Current Medications Medications (Trade) Dose Ordered Sig/Rebecca Start Time Stop Time Status Last Admin Dose Admin Acetaminophen (Tylenol) 500 mg 1X PRN PRN 11/28/16 08:30 11/29/16 08:29 DC Acetaminophen 650 mg 650 mg PRN Q4HRS PRN 11/26/16 20:45 11/27/16 20:44 DC Al Hydroxide/Mg Hydroxide (Mylanta Plus Xs) 30 ml PRN Q6HRS PRN 12/01/16 20:15 12/05/16 21:36 30 ML Albumin Human (Albuminar) 200 ml @ 200 mls/hr 1X PRN PRN 11/28/16 08:30 11/28/16 14:29 DC Amlodipine Besylate (Norvasc) 10 mg DAILY08 11/28/16 08:00 12/06/16 08:18 10 MG Calcitriol (Rocaltrol) 0.25 mcg DAILY 11/29/16 12:00 12/06/16 08:17 0.25 MCG Calcium Carbonate/ Glycine 500 mg 500 mg PRN AFTMEALHC PRN 12/01/16 20:15 12/03/16 13:45 500 MG Calcium Chloride/ Sodium Chloride (Iv Sodium Chloride 0.9% 100ml) 120 ml @ 240 mls/hr 1X ONCE 11/29/16 12:30 11/29/16 12:59 DC 11/29/16 15:34 240 MLS/HR Cefpodoxime Proxetil (Vantin) 200 mg DAILY 12/02/16 09:00 12/06/16 08:16 200 MG Ceftriaxone Sodium/Sodium Chloride (Rocephin/Iv Sodium Chloride 0.9% 50ml) 50 ml @ 100 mls/hr ONCE ONCE 12/01/16 09:30 12/01/16 09:59 DC 12/01/16 12:24 100 MLS/HR Clindamycin Phosphate (Cleocin 600 Mg Premix) 50 ml @ 100 mls/hr 1X ONCE 12/04/16 09:45 12/04/16 10:14 DC 12/04/16 09:49 100 MLS/HR Darbepoetin Jono (Aranesp) 60 mcg WEEKLYHS 11/29/16 21:00 11/29/16 20:44 60 MCG Diphenhydramine HCl (Benadryl) 25 mg 1X PRN PRN 11/28/16 08:30 11/29/16 08:29 DC Ergocalciferol 69204 unit 50,000 unit WEEKLY 11/29/16 12:00 03/07/17 09:01 12/06/16 08:17 50,000 UNIT Fentanyl Citrate (Fentanyl 2ml Vial) 100 mcg 1X ONCE 12/04/16 09:45 12/04/16 09:46 DC 12/04/16 09:48 100 MCG Fluticasone Propionate (Flonase) 2 spray DAILY 11/27/16 09:00 12/06/16 08:15 2 SPRAY Heparin Sodium (Porcine) (Heparin Sodium) 10,000 unit STK-MED ONCE 12/04/16 08:45 12/04/16 08:46 DC Heparin Sodium (Porcine) 4300 unit 4,300 unit 1X ONCE 12/04/16 09:45 12/04/16 09:46 DC 12/04/16 09:48 4,300 UNIT Heparin Sodium/ Sodium Chloride 1,000 unit 1X ONCE 12/04/16 09:45 12/04/16 09:46 DC 12/04/16 09:48 1,000 UNIT Info (PHARMACY MONITORING -- do not chart) 1 each PRN DAILY PRN 11/27/16 17:45 Cancel Info 1 each 1 each PRN DAILY PRN 11/28/16 08:30 Iohexol (Omnipaque 240 Mg/ml) 30 ml 1X ONCE 11/27/16 13:00 11/27/16 13:01 DC Lidocaine/ Epinephrine (Xylocaine 1%-Epi 1:100,000) 9 ml 1X ONCE 12/04/16 09:45 12/04/16 09:46 DC 12/04/16 09:48 9 ML Lidocaine/Sodium Bicarbonate (Buffered Lidocaine 1%) 3 ml 1X ONCE 11/27/16 15:30 11/27/16 15:31 DC 11/27/16 16:28 3 ML Loperamide HCl (Imodium) 2 mg DAILY08 11/27/16 08:45 12/06/16 08:17 2 MG Magnesium Oxide 400 mg 400 mg DAILY 12/04/16 20:00 12/06/16 08:17 400 MG Magnesium Sulfate/ Dextrose (Magnesium Sulfate PREMIX 2GM) 50 ml @ 25 mls/hr PRN DAILY PRN 12/06/16 10:15 Midazolam HCl (Versed) 2 mg 1X ONCE 12/04/16 09:45 12/04/16 09:46 DC 12/04/16 09:49 2 MG Ondansetron HCl (Zofran) 4 mg PRN Q6HRS PRN 11/27/16 08:28 11/28/16 15:56 4 MG Polysaccharide Iron Complex (Niferex 150) 150 mg DAILY 11/30/16 12:00 12/06/16 08:17 150 MG Potassium Chloride 40 meq 40 meq 1X ONCE 11/28/16 07:00 11/28/16 07:01 DC 11/28/16 11:36 40 MEQ Potassium Phosphate 13.6 mmol/Sodium Chloride 104.5333 ml @ 52.267 m... Q2H 11/28/16 09:30 11/28/16 15:29 DC 11/28/16 20:51 52.267 MLS/HR Sodium Bicarbonate 100 meq/Dextrose 1,100 ml @ 125 mls/hr Q8H48M 11/27/16 06:30 11/27/16 06:35 DC 11/27/16 06:25 125 MLS/HR Sodium Bicarbonate/ Dextrose 1,100 ml @ 125 mls/hr Q8H48M 11/27/16 07:00 11/29/16 11:42 DC 11/28/16 09:24 125 MLS/HR Sodium Bicarbonate (Sodium Bicarbonate) 325 mg BID 12/04/16 21:00 12/06/16 08:16 325 MG Sodium Chloride (Iv Sodium Chloride 0.9% 500ml Bag) 500 ml @ 0 mls/hr PRN QID PRN 11/29/16 11:45 12/01/16 12:17 DC Sodium Chloride (Iv Sodium Chloride 0.9% 1000ml Bag) 1,000 ml @ 75 mls/hr [id number] 12/03/16 10:45 12/05/16 16:05 75 MLS/HR Vitamin B Complex 1 tab 1 tab DAILY 11/30/16 12:00 12/06/16 08:17 1 TAB RUTH MONTANO MD Dec 06, 2016 11:50
[2016-12-06 15:00] VITALS: BP 123/74
[2016-12-06 17:15] LABS: TOTAL SERUM CREATININE 2.23 mg/dL (0.57-1.00)
[2016-12-06 19:00] VITALS: BP 139/78
[2016-12-06] MEDS: MAG HYDROX/ALUMINUM HYD/SIMETH 30 ML ORAL.SUSP PO PRN (20:26)
[2016-12-06] MEDS: DARBEPOETIN ALFA 60 MCG/0.3 ML DISP.SYRIN. SQ SCH (20:27)
[2016-12-06 23:00] VITALS: BP 130/73
[2016-12-07 03:00] VITALS: BP 142/69
[2016-12-07 04:27] LABS: ALBUMIN 2.2 g/dL (3.4-5.0); CALCIUM 8.2 mg/dL (8.5-10.1); CREATININE 2.3 mg/dL (0.6-1.0); GFR 21.2; PHOSPHORUS 3.7 mg/dL (2.6-4.7); POTASSIUM 4.4 mmol/L (3.5-5.1)
[2016-12-07 07:00] VITALS: BP 167/100
[2016-12-07] MEDS: IV NORMAL SALINE 1000ML BAG 1,000 ML IV SCH (08:05)
[2016-12-07] MEDS: VITAMIN B12,B9,B6 COMPLEX 1 TABLET. PO SCH (08:15)
[2016-12-07] MEDS: FLUTICASONE 50MCG/NASAL SPRAY 16GM BOTTLE. NS SCH (08:15)
[2016-12-07] MEDS: LOPERAMIDE 2 MG CAPSULE PO SCH (08:16)
[2016-12-07] MEDS: SODIUM BICARBONATE 650 MG TABLET. PO SCH (08:16)
[2016-12-07] MEDS: amLODIPine BESYLATE 10 MG TABLET PO SCH (08:16)
[2016-12-07] MEDS: IRON POLYSACCHARIDE COMPLEX 150 MG CAPSULE PO SCH (08:17)
[2016-12-07] MEDS: CEFPODOXIME PROXETIL 100 MG TABLET. PO SCH (08:17)
[2016-12-07] MEDS: MAGNESIUM OXIDE 400 MG TABLET PO SCH (08:17)
[2016-12-07] MEDS: CALCITRIOL 0.25 MCG CAPSULE. PO SCH (08:17)
--- NOTE | 2016-12-07 09:17 | PDOC ---
SUBJECTIVE ROS KEYONNA/ CKD IV doign and feeling much better CVS: no Orthopnea, no CP RESP: no SOB, no WILEY GI: no Nausea, no Vomiting : no Dysuria, no Urgency OBJECTIVE Vital Signs Vital Signs Date Time Temp Pulse Resp B/P Pulse Ox O2 Delivery O2 Flow Rate FiO2 12/07/16 08:16 82 129/93 12/07/16 07:00 97.7 14 97 Room Air 97.7 12/06/16 08:15 2.0 I & 0 Intake and Output 12/07/16 07:00 Intake Total 360 ml Output Total 250 ml Balance 110 ml Intake Oral 360 ml Output Urine Total 250 ml # Voids 8 PHYSICAL EXAM Physical Exam General Appearance: Awake Alert Oriented x 3 In no obvious Distress Eyes: VIsion Unchanged Conjunctiva Normal EN: No EN Drainage Mucous Memb. moist Neck: no JVD min JVP Supple no Thyromegaly CVS: S1 S2 ? Murmur No Gallop No Rub no Edema Resp: no Rales no Rhonchi no Acc. Muscle use GI: BS hypoactive NO Bruit non Tender Non Distended : no CVA tenderness; no Suprapubic Tenderness Assessment & Plan ARF/ ? ATN: (possible etios incldue VMN, NSAIDs and ATN) this appears to have resolved; D/c HD Cath CKD IV at baseline : Crcl is 20, GFR appears to be an over-estimation of renal function. Proteinuria - resolved on 24-hr Urine Anemia: remains on Epogen for now - ? Need to Transfuse prior to D/c HTN: Current BP meds reviewed. may need addition of BP meds in am if remains in current range. Discussed Plan of Care and prognosis etc. at length with pt who will need OP F/ up with us in 4 weeks COMMENT/RELEVANT DATA Meds Current Medications Medications (Trade) Dose Ordered Sig/Rebecca Start Time Stop Time Status Last Admin Dose Admin Acetaminophen (Tylenol) 500 mg 1X PRN PRN 11/28/16 08:30 11/29/16 08:29 DC Acetaminophen 650 mg 650 mg PRN Q4HRS PRN 11/26/16 20:45 11/27/16 20:44 DC Al Hydroxide/Mg Hydroxide (Mylanta Plus Xs) 30 ml PRN Q6HRS PRN 12/01/16 20:15 12/06/16 20:26 30 ML Albumin Human (Albuminar) 200 ml @ 200 mls/hr 1X PRN PRN 11/28/16 08:30 11/28/16 14:29 DC Amlodipine Besylate (Norvasc) 10 mg DAILY08 11/28/16 08:00 12/07/16 08:16 10 MG Calcitriol (Rocaltrol) 0.25 mcg DAILY 11/29/16 12:00 12/07/16 08:17 0.25 MCG Calcium Carbonate/ Glycine 500 mg 500 mg PRN AFTMEALHC PRN 12/01/16 20:15 12/03/16 13:45 500 MG Calcium Chloride/ Sodium Chloride (Iv Sodium Chloride 0.9% 100ml) 120 ml @ 240 mls/hr 1X ONCE 11/29/16 12:30 11/29/16 12:59 DC 11/29/16 15:34 240 MLS/HR Cefpodoxime Proxetil (Vantin) 200 mg DAILY 12/02/16 09:00 12/07/16 08:17 200 MG Ceftriaxone Sodium/Sodium Chloride (Rocephin/Iv Sodium Chloride 0.9% 50ml) 50 ml @ 100 mls/hr ONCE ONCE 12/01/16 09:30 12/01/16 09:59 DC 12/01/16 12:24 100 MLS/HR Clindamycin Phosphate (Cleocin 600 Mg Premix) 50 ml @ 100 mls/hr 1X ONCE 12/04/16 09:45 12/04/16 10:14 DC 12/04/16 09:49 100 MLS/HR Darbepoetin Jono (Aranesp) 60 mcg WEEKLYHS 11/29/16 21:00 12/06/16 20:27 60 MCG Diphenhydramine HCl (Benadryl) 25 mg 1X PRN PRN 11/28/16 08:30 11/29/16 08:29 DC Ergocalciferol 33024 unit 50,000 unit WEEKLY 11/29/16 12:00 03/07/17 09:01 12/06/16 08:17 50,000 UNIT Fentanyl Citrate (Fentanyl 2ml Vial) 100 mcg 1X ONCE 12/04/16 09:45 12/04/16 09:46 DC 12/04/16 09:48 100 MCG Fluticasone Propionate (Flonase) 2 spray DAILY 11/27/16 09:00 12/07/16 08:15 2 SPRAY Heparin Sodium (Porcine) (Heparin Sodium) 10,000 unit STK-MED ONCE 12/04/16 08:45 12/04/16 08:46 DC Heparin Sodium (Porcine) 4300 unit 4,300 unit 1X ONCE 12/04/16 09:45 12/04/16 09:46 DC 12/04/16 09:48 4,300 UNIT Heparin Sodium/ Sodium Chloride 1,000 unit 1X ONCE 12/04/16 09:45 12/04/16 09:46 DC 12/04/16 09:48 1,000 UNIT Info (PHARMACY MONITORING -- do not chart) 1 each PRN DAILY PRN 11/27/16 17:45 Cancel Info 1 each 1 each PRN DAILY PRN 11/28/16 08:30 Iohexol (Omnipaque 240 Mg/ml) 30 ml 1X ONCE 11/27/16 13:00 11/27/16 13:01 DC Lidocaine/ Epinephrine (Xylocaine 1%-Epi 1:100,000) 9 ml 1X ONCE 12/04/16 09:45 12/04/16 09:46 DC 12/04/16 09:48 9 ML Lidocaine/Sodium Bicarbonate (Buffered Lidocaine 1%) 3 ml 1X ONCE 11/27/16 15:30 11/27/16 15:31 DC 11/27/16 16:28 3 ML Loperamide HCl (Imodium) 2 mg DAILY08 11/27/16 08:45 12/07/16 08:16 2 MG Magnesium Oxide 400 mg 400 mg DAILY 12/04/16 20:00 12/07/16 08:17 400 MG Magnesium Sulfate/ Dextrose (Magnesium Sulfate PREMIX 2GM) 50 ml @ 25 mls/hr PRN DAILY PRN 12/06/16 10:15 Midazolam HCl (Versed) 2 mg 1X ONCE 12/04/16 09:45 12/04/16 09:46 DC 12/04/16 09:49 2 MG Ondansetron HCl (Zofran) 4 mg PRN Q6HRS PRN 11/27/16 08:28 11/28/16 15:56 4 MG Polysaccharide Iron Complex (Niferex 150) 150 mg DAILY 11/30/16 12:00 12/07/16 08:17 150 MG Potassium Chloride 40 meq 40 meq 1X ONCE 11/28/16 07:00 11/28/16 07:01 DC 11/28/16 11:36 40 MEQ Potassium Phosphate 13.6 mmol/Sodium Chloride 104.5333 ml @ 52.267 m... Q2H 11/28/16 09:30 11/28/16 15:29 DC 11/28/16 20:51 52.267 MLS/HR Sodium Bicarbonate 100 meq/Dextrose 1,100 ml @ 125 mls/hr Q8H48M 11/27/16 06:30 11/27/16 06:35 DC 11/27/16 06:25 125 MLS/HR Sodium Bicarbonate/ Dextrose 1,100 ml @ 125 mls/hr Q8H48M 11/27/16 07:00 11/29/16 11:42 DC 11/28/16 09:24 125 MLS/HR Sodium Bicarbonate (Sodium Bicarbonate) 325 mg BID 12/04/16 21:00 12/07/16 08:16 325 MG Sodium Chloride (Iv Sodium Chloride 0.9% 500ml Bag) 500 ml @ 0 mls/hr PRN QID PRN 11/29/16 11:45 12/01/16 12:17 DC Sodium Chloride (Iv Sodium Chloride 0.9% 1000ml Bag) 1,000 ml @ 75 mls/hr [id number] 12/03/16 10:45 12/05/16 16:05 75 MLS/HR Vitamin B Complex 1 tab 1 tab DAILY 11/30/16 12:00 12/07/16 08:15 1 TAB Lab Laboratory Tests Test 12/06/16 10:20 12/07/16 03:32 Urine Protein 10.3mg/dL (Not Estab.) Urine Protein 24 Hr Calculated 100mg/24 hr (30-150) Hemoglobin 7.1g/dL (12.0-15.5) Sodium Level 142mmol/L (136-145) Potassium Level 4.4mmol/L (3.5-5.1) Chloride Level 111mmol/L (98-107) Carbon Dioxide Level 23mmol/L (21-32) Anion Gap 8 (6-14) Blood Urea Nitrogen 30mg/dL (7-20) Creatinine 2.3mg/dL (0.6-1.0) Estimated GFR (Cockcroft-Gault) 21.2 Glucose Level 85mg/dL (70-99) Calcium Level 8.2mg/dL (8.5-10.1) Phosphorus Level 3.7mg/dL (2.6-4.7) Magnesium Level 2.0mg/dL (1.8-2.4) Albumin 2.2g/dL (3.4-5.0) RUTH MONTANO MD Dec 07, 2016 09:17
--- NOTE | 2016-12-07 09:56 | PDOC ---
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 No apparent complication. EZEKIEL BONILLA MD Dec 07, 2016 09:56
[2016-12-07 11:00] VITALS: BP 160/91
--- NOTE | 2016-12-07 11:58 | PDOC ---
PROGRESS NOTES Chief Complaint Chief Complaint Late entry, seen on 12/06/16 1. ESRD now new HD 2. NEW HD (11/28/16) but now doing well off, 3. Anemia of CKD 3. HTN, controlled 4. UTI E COLI 5. Urinary incontinence 6. Gen weakness - acquired Plan HD per nephrology labs reviewed clinically improving Monitor renal functions Anticipated DC 12/07/16 abx per id 24 Hr urine collection appreciate nephrology recommendations PT/OT renal diet History of Present Illness History of Present Illness no fever doing better making some urine Vitals Vitals Vital Signs Date Time Temp Pulse Resp B/P Pulse Ox O2 Delivery O2 Flow Rate FiO2 12/07/16 11:00 98.2 70 16 160/91 96 Room Air 98.2 12/07/16 08:00 2.0 Physical Exam General: Alert, Oriented X3, Cooperative, No acute distress Heart: Normal S1, Normal S2 Lungs: Clear Abdomen: Normal bowel sounds, Soft, No tenderness, No hepatosplenomegaly, No masses Extremities: No clubbing, No cyanosis, No edema, Normal pulses, No tenderness/ swelling Skin: No rashes, No breakdown, No significant lesion Labs LABS Laboratory Tests Test 12/07/16 03:32 Hemoglobin 7.1g/dL (12.0-15.5) Sodium Level 142mmol/L (136-145) Potassium Level 4.4mmol/L (3.5-5.1) Chloride Level 111mmol/L (98-107) Carbon Dioxide Level 23mmol/L (21-32) Anion Gap 8 (6-14) Blood Urea Nitrogen 30mg/dL (7-20) Creatinine 2.3mg/dL (0.6-1.0) Estimated GFR (Cockcroft-Gault) 21.2 Glucose Level 85mg/dL (70-99) Calcium Level 8.2mg/dL (8.5-10.1) Phosphorus Level 3.7mg/dL (2.6-4.7) Magnesium Level 2.0mg/dL (1.8-2.4) Albumin 2.2g/dL (3.4-5.0) Assessment and Plan Assessmemt and Plan Problems Medical Problems: (1) Acute on chronic renal failure Status: Acute (2) Hypocalcemia Status: Acute (3) Hypomagnesemia Status: Acute (4) Metabolic encephalopathy Status: Acute (5) Normocytic anemia Status: Acute Problems: Comment Review of Relevant I have reviewed the following items yoel (where applicable) has been applied. Labs Laboratory Tests Test 12/06/16 10:20 12/07/16 03:32 Urine Protein 10.3mg/dL (Not Estab.) Urine Protein 24 Hr Calculated 100mg/24 hr (30-150) Hemoglobin 7.1g/dL (12.0-15.5) Sodium Level 142mmol/L (136-145) Potassium Level 4.4mmol/L (3.5-5.1) Chloride Level 111mmol/L (98-107) Carbon Dioxide Level 23mmol/L (21-32) Anion Gap 8 (6-14) Blood Urea Nitrogen 30mg/dL (7-20) Creatinine 2.3mg/dL (0.6-1.0) Estimated GFR (Cockcroft-Gault) 21.2 Glucose Level 85mg/dL (70-99) Calcium Level 8.2mg/dL (8.5-10.1) Phosphorus Level 3.7mg/dL (2.6-4.7) Magnesium Level 2.0mg/dL (1.8-2.4) Albumin 2.2g/dL (3.4-5.0) Laboratory Tests Test 12/07/16 03:32 Hemoglobin 7.1g/dL (12.0-15.5) Sodium Level 142mmol/L (136-145) Potassium Level 4.4mmol/L (3.5-5.1) Chloride Level 111mmol/L (98-107) Carbon Dioxide Level 23mmol/L (21-32) Anion Gap 8 (6-14) Blood Urea Nitrogen 30mg/dL (7-20) Creatinine 2.3mg/dL (0.6-1.0) Estimated GFR (Cockcroft-Gault) 21.2 Glucose Level 85mg/dL (70-99) Calcium Level 8.2mg/dL (8.5-10.1) Phosphorus Level 3.7mg/dL (2.6-4.7) Magnesium Level 2.0mg/dL (1.8-2.4) Albumin 2.2g/dL (3.4-5.0) Microbiology 11/28/16 Urine Culture - Final, Complete 11/28/16 Urine Culture Result 1 (OLAMIDE) - Final, Complete 11/28/16 Antimicrobic Susceptibility - Final, Complete Medications Current Medications Sodium Chloride (Iv Sodium Chloride 0.9% 1000ml Bag) 1,000 ml @ 100 mls/hr 1X ONCE IV Last administered on 11/26/16 19:38; Start 11/26/16 at 19:30; Stop at 05:29; Status DC Ondansetron HCl 4 mg 4 mg PRN Q8HRS PRN IV NAUSEA/VOMITING; Start 11/26/16 at 20:45; Stop 11/27/16 at 08:29; Status DC Sodium Chloride (Iv Sodium Chloride 0.9% 1000ml Bag) 1,000 ml @ 125 mls/hr Q8H IV Last administered on 11/27/16 04:53; Start 11/26/16 at 20:31; Stop at 06:39; Status DC Acetaminophen 650 mg 650 mg PRN Q4HRS PRN PO FEVER; Start 11/26/16 at 20:45; Stop 11/27/16 at 20:44; Status DC Sodium Bicarbonate 100 meq/Dextrose 1,100 ml @ 125 mls/hr Q8H48M IV Last administered on 11/27/16 06:25; Start 11/27/16 at 06:30; Stop 11/27/16 at 06:35 ; Status DC Sodium Bicarbonate/ Dextrose 1,100 ml @ 125 mls/hr Q8H48M IV Last administered on 11/28/16 09:24; Start 11/27/16 at 07:00; Stop 11/29/16 at 11:42 ; Status DC Ondansetron HCl (Zofran) 4 mg PRN Q6HRS PRN IV NAUSEA/VOMITING Last administered on 11/28/16 15:56; Start 11/27/16 at 08:28 Amlodipine Besylate (Norvasc) 10 mg DAILY08 PO Last administered on 12/07/16 08:16; Start 11/28/16 at 08:00 Fluticasone Propionate (Flonase) 2 spray DAILY NS Last administered on 08:15; Start 11/27/16 at 09:00 Loperamide HCl 2 mg 2 mg DAILY08 PO Last administered on 12/07/16 08:16; Start 11/27/16 at 08:45 Magnesium Sulfate/ Dextrose 50 ml @ 25 mls/hr PRN DAILY PRN IV for Mag < 1.7 on am labs Last administered on 12/05/16 10:12; Start 11/27/16 at 11:30 Magnesium Sulfate/ Dextrose (Magnesium Sulfate PREMIX 2GM) 50 ml @ 25 mls/hr PRN DAILY PRN IV for Mag < 1.7 on am labs; Start 11/27/16 at 11:30; Status UNV Iohexol (Omnipaque 240 Mg/ml) 30 ml 1X ONCE PO ; Start 11/27/16 at 13:00; Stop 11/27/16 at 13:01; Status DC Lidocaine/Sodium Bicarbonate (Buffered Lidocaine 1%) 3 ml 1X ONCE IJ Last administered on 11/27/16 16:28; Start 11/27/16 at 15:30; Stop 11/27/16 at 15:31 ; Status DC Heparin Sodium/ Sodium Chloride 60 unit 1X ONCE IV Last administered on 16:28; Start 11/27/16 at 15:30; Stop 11/27/16 at 15:31; Status DC Heparin Sodium (Porcine) (Heparin Sodium) 2,500 unit 1X ONCE INT CAT Last administered on 11/27/16 16:29; Start 11/27/16 at 15:30; Stop 11/27/16 at 15:31 ; Status DC Heparin Sodium (Porcine) 78394 unit 10,000 unit STK-MED ONCE .ROUTE ; Start at 15:58; Stop 11/27/16 at 15:59; Status DC Sodium Chloride 1,000 ml @ 1,000 mls/hr PRN Q1HR PRN IV hypotension; Start at 17:38; Stop 12/01/16 at 12:17; Status DC Albumin Human (Albuminar) 200 ml @ 200 mls/hr 1X PRN PRN IV Hypotension; Start 11/27/16 at 17:45; Stop 11/27/16 at 23:44; Status DC Info (PHARMACY MONITORING -- do not chart) 1 each PRN DAILY PRN MC SEE COMMENTS ; Start 11/27/16 at 17:45; Status Cancel Acetaminophen (Tylenol) 650 mg PRN Q6HRS PRN PO HEADACHE Last administered on 22:18; Start 11/27/16 at 23:00 Potassium Chloride 40 meq 40 meq 1X ONCE PO Last administered on 11/28/16 11: 36; Start 11/28/16 at 07:00; Stop 11/28/16 at 07:01; Status DC Sodium Chloride 1,000 ml @ 1,000 mls/hr Q1H PRN IV hypotension; Start 11/28/16 at 08:28; Stop 11/28/16 at 14:27; Status DC Albumin Human (Albuminar) 200 ml @ 200 mls/hr 1X PRN PRN IV Hypotension; Start 11/28/16 at 08:30; Stop 11/28/16 at 14:29; Status DC Acetaminophen (Tylenol) 500 mg 1X PRN PRN PO MILD PAIN / TEMP; Start 11/28/16 at 08:30; Stop 11/29/16 at 08:29; Status DC Diphenhydramine HCl (Benadryl) 25 mg 1X PRN PRN IV ITCHING; Start 11/28/16 at 08:30; Stop 11/29/16 at 08:29; Status DC Diphenhydramine HCl 25 mg 25 mg 1X PRN PRN IV ITCHING; Start 11/28/16 at 08:30 ; Stop 11/29/16 at 08:29; Status DC Sodium Chloride (Iv Sodium Chloride 0.9% 1000ml Bag) 1,000 ml @ 400 mls/hr Q2H30M PRN IV PATENCY; Start 11/28/16 at 08:28; Stop 11/28/16 at 20:27; Status DC Info 1 each 1 each PRN DAILY PRN MC SEE COMMENTS; Start 11/28/16 at 08:30 Magnesium Sulfate/ Dextrose 50 ml @ 25 mls/hr 1X ONCE IV Last administered on 11/28/16 18:32; Start 11/28/16 at 09:30; Stop 11/28/16 at 11:29; Status DC Potassium Phosphate 13.6 mmol/Sodium Chloride 104.5333 ml @ 52.267 m... Q2H IV Last administered on 11/28/16 20:51; Start 11/28/16 at 09:30; Stop 11/28/16 at 15:29; Status DC Sodium Chloride 500 ml @ 0 mls/hr PRN QID PRN IV UO< 30cc/hr over previous 6hrs ; Start 11/29/16 at 11:45; Stop 12/01/16 at 12:17; Status DC Sodium Chloride (Iv Sodium Chloride 0.9% 1000ml Bag) 1,000 ml @ 125 mls/hr Q8H IV Last administered on 11/30/16 22:54; Start 11/29/16 at 11:45; Stop at 12:17; Status DC Calcitriol (Rocaltrol) 0.25 mcg DAILY PO Last administered on 12/07/16 08:17; Start 11/29/16 at 12:00 Ergocalciferol 47631 unit 50,000 unit WEEKLY PO Last administered on 12/06/16 08:17; Start 11/29/16 at 12:00; Stop 03/07/17 at 09:01 Calcium Chloride/ Sodium Chloride (Iv Sodium Chloride 0.9% 100ml) 120 ml @ 240 mls/hr 1X ONCE IV Last administered on 11/29/16 15:34; Start 11/29/16 at 12: 30; Stop 11/29/16 at 12:59; Status DC Darbepoetin Jono 60 mcg 60 mcg WEEKLYHS SQ Last administered on 12/06/16 20:27 ; Start 11/29/16 at 21:00 Ceftriaxone Sodium/Sodium Chloride (Rocephin/Iv Sodium Chloride 0.9% 50ml) 50 ml @ 100 mls/hr Q24H IV Last administered on 11/29/16 16:21; Start 11/29/16 at 14:00; Stop 12/01/16 at 09:13; Status DC Polysaccharide Iron Complex (Niferex 150) 150 mg DAILY PO Last administered on 12/07/16 08:17; Start 11/30/16 at 12:00 Vitamin B Complex 1 tab 1 tab DAILY PO Last administered on 12/07/16 08:15; Start 11/30/16 at 12:00 Ceftriaxone Sodium/Sodium Chloride (Rocephin/Iv Sodium Chloride 0.9% 50ml) 50 ml @ 100 mls/hr ONCE ONCE IV Last administered on 12/01/16 12:24; Start at 09:30; Stop 12/01/16 at 09:59; Status DC Cefpodoxime Proxetil (Vantin) 200 mg DAILY PO Last administered on 12/07/16 08 :17; Start 12/02/16 at 09:00 Al Hydroxide/Mg Hydroxide (Mylanta Plus Xs) 30 ml PRN Q6HRS PRN PO HEARTBURN / GAS Last administered on 12/06/16 20:26; Start 12/01/16 at 20:15 Calcium Carbonate/ Glycine 500 mg 500 mg PRN AFTMEALHC PRN PO INDIGESTION Last administered on 12/03/16 13:45; Start 12/01/16 at 20:15 Sodium Chloride 1,000 ml @ 75 mls/hr 1X ONCE IV Last administered on 13:07; Start 12/02/16 at 12:15; Stop 12/03/16 at 01:34; Status DC Sodium Chloride (Iv Sodium Chloride 0.9% 1000ml Bag) 1,000 ml @ 75 mls/hr [id number] IV Last administered on 12/05/16 16:05; Start 12/03/16 at 10:45; Stop 12/07/16 at 09:04; Status DC Heparin Sodium (Porcine) (Heparin Sodium) 10,000 unit STK-MED ONCE .ROUTE ; Start 12/04/16 at 08:45; Stop 12/04/16 at 08:46; Status DC Lidocaine/ Epinephrine 20 ml 20 ml STK-MED ONCE .ROUTE ; Start 12/04/16 at 08:45 ; Stop 12/04/16 at 08:46; Status DC Heparin Sodium/ Sodium Chloride 500 ml @ As Directed STK-MED ONCE .ROUTE ; Start 12/04/16 at 08:45; Stop 12/04/16 at 08:46; Status DC Fentanyl Citrate (Fentanyl 2ml Vial) 100 mcg STK-MED ONCE .ROUTE ; Start at 09:10; Stop 12/04/16 at 09:11; Status DC Midazolam HCl 2 mg 2 mg STK-MED ONCE .ROUTE ; Start 12/04/16 at 09:10; Stop at 09:11; Status DC Clindamycin Phosphate (Cleocin 600 Mg Premix) 50 ml @ As Directed STK-MED ONCE IV ; Start 12/04/16 at 09:16; Stop 12/04/16 at 09:17; Status DC Heparin Sodium/ Sodium Chloride 1,000 unit 1X ONCE IART Last administered on 09:48; Start 12/04/16 at 09:45; Stop 12/04/16 at 09:46; Status DC Midazolam HCl (Versed) 2 mg 1X ONCE IV Last administered on 12/04/16 09:49; Start 12/04/16 at 09:45; Stop 12/04/16 at 09:46; Status DC Fentanyl Citrate (Fentanyl 2ml Vial) 100 mcg 1X ONCE IV Last administered on 09:48; Start 12/04/16 at 09:45; Stop 12/04/16 at 09:46; Status DC Lidocaine/ Epinephrine (Xylocaine 1%-Epi 1:100,000) 9 ml 1X ONCE IJ Last administered on 12/04/16 09:48; Start 12/04/16 at 09:45; Stop 12/04/16 at 09:46 ; Status DC Heparin Sodium (Porcine) 4300 unit 4,300 unit 1X ONCE INT CAT Last administered on 12/04/16 09:48; Start 12/04/16 at 09:45; Stop 12/04/16 at 09:46 ; Status DC Clindamycin Phosphate (Cleocin 600 Mg Premix) 50 ml @ 100 mls/hr 1X ONCE IV Last administered on 12/04/16 09:49; Start 12/04/16 at 09:45; Stop 12/04/16 at 10:14; Status DC Sodium Bicarbonate (Sodium Bicarbonate) 325 mg BID PO Last administered on 12/07 08:16; Start 12/04/16 at 21:00 Magnesium Oxide 400 mg 400 mg DAILY PO Last administered on 12/07/16 08:17; Start 12/04/16 at 20:00 Magnesium Sulfate/ Dextrose (Magnesium Sulfate PREMIX 2GM) 50 ml @ 25 mls/hr PRN DAILY PRN IV for Mag < 1.7 on am labs; Start 12/06/16 at 10:15 Active Scripts Active Reported Flovent 50MCG Diskus (Fluticasone Propionate) 50 Mcg Disk.w.dev 50 Mcg IH BID Imodium A-D (Loperamide Hcl) 1 Mg/7.5 Ml Liquid 2 Mg PO DAILY08 Norvasc (Amlodipine Besylate) 10 Mg Tablet 10 Mg PO DAILY08 Vitals/I & O Vital Sign - Last 24 Hours 12/06/16 12/06/16 12/06/16 12/07/16 15:00 19:00 23:00 03:00 Temp 98.1 98.1 98.4 98.1 98.1 98.1 98.4 98.1 Pulse 83 85 82 80 Resp 20 18 16 18 B/P 123/74 139/78 130/73 142/69 Pulse Ox 97 98 95 98 O2 Delivery Room Air 12/07/16 12/07/16 12/07/16 12/07/16 07:00 08:00 08:16 11:00 Temp 97.7 98.2 97.7 98.2 Pulse 75 82 70 Resp 14 16 B/P 167/100 129/93 160/91 Pulse Ox 97 96 O2 Delivery Room Air Room Air Room Air O2 Flow Rate 2.0 Intake and Output 12/06/16 12/06/16 12/07/16 14:59 22:59 06:59 Intake Total 120 ml 240 ml Output Total 250 ml Balance 120 ml -250 ml 240 ml LEONIDAS BARRETT MD Dec 07, 2016 11:58
[2016-12-07] MEDS ORDERED: CALC0.25 PO (12:18)
[2016-12-07] MEDS ORDERED: ERGO500012 PO (12:18)
[2016-12-07] MEDS ORDERED: CYAN1TAB19 PO (12:18)
--- NOTE | 2016-12-07 18:15 | DS ---
DATE OF DISCHARGE: 12/07/2016 DISCHARGE DIAGNOSES: 1. Acute renal failure/____, possible etiologies vasomotor nephropathy, NSAID use, and acute tubular necrosis. 2. Chronic kidney disease 4, baseline. 3. Proteinuria. 4. Anemia due to chronic kidney disease. 5. Hypertension. 6. Urinary tract infection, E. coli. 7. Generalized weakness, resolved. 8. Hypernatremia, resolved. BRIEF HOSPITAL COURSE: This 66-year-old female patient admitted to the hospital on 11/27/2016 for generalized weakness and symptoms of UTI. She was evaluated by Dr. Carmen Ortiz and Dr. Shane. The patient was started on broad-spectrum antibiotics initially and later antibiotic was changed to cefpodoxime for urinary tract infection. During the hospitalization, she received hemodialysis for acute renal failure with possible CKD, also she had a 24-hour urine study and Dr. Ornelas and Dr. Ortiz recommended her to stop hemodialysis today and follow up with them in a couple of weeks. Temporary hemodialysis catheter was removed on 12/07/2016. Today, she is deemed clinically stable enough to go home and follow up with Dr. Ortiz. DISCHARGE EXAMINATION: GENERAL: Alert, oriented x 3. HEART: S1, S2 present. LUNGS: Anterior chest clear. ABDOMEN: Soft, nontender, no organomegaly. EXTREMITIES: +1 edema. DISCHARGE DISPOSITION: Home. DISCHARGE CONDITION: Stable. MEDICATIONS: Reviewed and reconciled. Please see MRAD. DISCHARGE FOLLOWUP: With Dr. Ortiz and primary care doctor. Total time spent for discharge is 32 minutes for patient's education, counseling, and coordination of care and physical examination. LEONIDAS BARRETT MD DR: NOEMÍ/lacey JOB#: [id number] / [id number]
== END 2016-12-07 14:23 | disposition home or self-care (01) | DRG 682 ==
LOC: ER 18:21 → 5 SOUTH 19:51
PROVIDERS: ADMIT Internal Medicine Hematology & Oncology; ATTEND Internal Medicine Hematology & Oncology
PROC: 02HV33Z Insertion of Infusion Device into Superior Vena Cava, Percutaneous Approach (ICD-10-PCS; 2016-11-27)
PROC: B5181ZA Fluoroscopy of Superior Vena Cava using Low Osmolar Contrast, Guidance (ICD-10-PCS; 2016-11-27)
PROC: 5A1D60Z (ICD-10-PCS; 2016-11-28)
PROC: 02H633Z Insertion of Infusion Device into Right Atrium, Percutaneous Approach (ICD-10-PCS; principal; 2016-12-04)
PROC: B2141ZZ Fluoroscopy of Right Heart using Low Osmolar Contrast (ICD-10-PCS; 2016-12-04)
PROC: 05PY33Z Removal of Infusion Device from Upper Vein, Percutaneous Approach (ICD-10-PCS; 2016-12-04)
DX: N17.0 Acute kidney failure with tubular necrosis (principal); G93.41 Metabolic encephalopathy; E87.2 Acidosis; N39.0 Urinary tract infection, site not specified; D61.818 Other pancytopenia; E87.0 Hyperosmolality and hypernatremia; I13.11 Hypertensive heart and chronic kidney disease without heart failure, with stage 5 chronic kidney disease, or end stage renal disease; N18.6 End stage renal disease; B96.20 Unspecified Escherichia coli [E. coli] as the cause of diseases classified elsewhere; D63.1 Anemia in chronic kidney disease; E83.42 Hypomagnesemia; E83.51 Hypocalcemia; E86.0 Dehydration; G47.30 Sleep apnea, unspecified; I51.7 Cardiomegaly; I70.0 Atherosclerosis of aorta; J45.909 Unspecified asthma, uncomplicated; K21.9 Gastro-esophageal reflux disease without esophagitis; M19.90 Unspecified osteoarthritis, unspecified site; E66.9 Obesity, unspecified; R32 Unspecified urinary incontinence; Z85.038 Personal history of other malignant neoplasm of large intestine; Z85.41 Personal history of malignant neoplasm of cervix uteri; Z87.442 Personal history of urinary calculi; Z88.0 Allergy status to penicillin; Z90.49 Acquired absence of other specified parts of digestive tract; Z90.710 Acquired absence of both cervix and uterus; Z99.2 Dependence on renal dialysis; Z68.30 Body mass index [BMI] 30.0-30.9, adult
CPT/HCPCS: 36415; 36556; 36558; 36589; 71010; 74176; 76770; 76937; 77001; 80048; 80053; 80069; 81001; 82040; 82306; 82533; 82550; 82570; 82575; 82607; 82728; 82947; 83540; 83550; 83605; 83735; 83880; 83970; 84100; 84156; 84300; 84484; 84550; 85018; 85027; 85045; 85610; 86704; 86706; 87086; 87186; 87340; 87341; 93005; 96360; A4215; C1750; C1892; J0696; J0881; J2250; J2405; J3010; J3490; J7030; J7060; 97110; 97116; 97530; 99285-25

== ENCOUNTER 2017-05-02 21:49 | Inpatient (IN) | payer BC, MEDICAID ==
[~2017-05-02] VITALS: Ht 165.1 cm; Wt 69.4 kg
[~2017-05-02 21:49] MED LIST changes: +CALC0.25 PO; +CYAN1TAB19 PO; +ERGO500027 PO; -HYDR-2666 PO; +HYDR-2758 PO
[2017-05-02] MEDS ORDERED: LIDO:MAALOX:DONNATAL 1:1:1 15 ML SINGLE DOSE SWSW ONE (23:15)
[2017-05-02] MEDS ORDERED: ONDANSETRON PF 4 MG/2 ML VIAL. IV ONE (23:15)
--- NOTE | 2017-05-02 23:22 | PHYS DOC ---
Past Medical History Past Medical History: Cancer, Hypertension, Other Additional Past Medical Histor: intestinal cancer,BLOOD TRANSFUSION, UMBILICAL HERNIA Past Surgical History: Appendectomy, Hysterectomy, Other Additional Past Surgical Histo: "intestines removed", HERNIA REPAIR Alcohol Use: Occasionally Drug Use: None Adult General Chief Complaint Chief Complaint: NAUSEA/VOMITING/DIARRHA HPI HPI 67 yo F with abd pain and hernia. Pt has a burning sensation in the epigastrum. nonradiating. no alleviating factors. Patient has a large ventral hernia. She denies her hernia being unable to be reduced or having a rash over top. The pain is moderate. Review of systems is negative for chest pain shortness of breath. She denies fevers or chills. All other review of systems is negative unless otherwise noted in history of present illness. ED course: 59-year-old female presenting to the emergency department with nausea and one episode of nonbloody non-bilious emesis. Triage vital signs afebrile with a normal heart rate. Pertinent physical examination findings show a large ventral hernia that is easily reducible and without any evidence of incarceration or strangulation. Minimal pain to palpation of the abdomen generally without a focus. Negative McBurney's point. Negative Orr sign. Patient was given IV fluids nausea and pain medications. Blood work obtained which initially showed acute renal failure. CO2 came back at very low. Bicarbonate administered in the emergency department. ABG ordered and obtained which showed pH within normal limits. Otherwise bicarbonate at 18 on ABG and CO2 low consistent with acute metabolic acidosis likely secondary to acute renal failure. I discussed the case with Dr. Fernandez and the patient was then admitted to the ICU for further evaluation workup and care. Renal consult placed. Lactic acid within normal limits. CT the abdomen pelvis obtained. CBC shows chronic significant anemia. Patient denies dark stools or GI bleeding. Review of Systems Review of Systems SEE ABOVE. Current Medications Current Medications Current Medications Medications (Trade) Dose Ordered Sig/Rebecca Start Time Stop Time Status Last Admin Dose Admin Multi-Ingredient Mouthwash/Gargle (Gi Cocktail Single Dose) 15 ml 1X ONCE 05/02/17 23:15 05/02/17 23:16 DC 05/02/17 23:27 15 ML Ondansetron HCl (Zofran) 4 mg 1X ONCE 05/02/17 23:15 05/02/17 23:16 DC 05/02/17 23:27 4 MG Allergies Allergies Allergies Coded Allergies Type Severity Reaction Last Updated Verified Penicillins Allergy Intermediate rash 09/05/13 Yes Physical Exam Physical Exam SEE ABOVE Constitutional: Well developed, well nourished, no acute distress, non-toxic appearance. [] HENT: Normocephalic, atraumatic, bilateral external ears normal, oropharynx moist, no oral exudates, nose normal. [] Eyes: PERRLA, EOMI, conjunctiva normal, no discharge. [] Neck: Normal range of motion, no tenderness, supple, no stridor. [] Cardiovascular:Heart rate regular rhythm, no murmur [] Lungs & Thorax: Bilateral breath sounds clear to auscultation [] Abdomen: SEE ABOVE Skin: Warm, dry, no erythema, no rash. [] Back: No tenderness, no CVA tenderness. [] Extremities: No tenderness, no cyanosis, no clubbing, ROM intact, no edema. [] Neurologic: Alert and oriented X 3, normal motor function, normal sensory function, no focal deficits noted. [] Psychologic: Affect normal, judgement normal, mood normal. [] Current Patient Data Vital Signs Vital Signs Date Time Temp Pulse Resp B/P (MAP) Pulse Ox O2 Delivery O2 Flow Rate FiO2 05/03/17 00:25 68 32 114/56 (75) 97 05/02/17 22:02 98.4 Room Air 98.4 Lab Values Laboratory Tests Test 05/02/17 23:20 05/03/17 00:05 05/03/17 00:56 White Blood Count 8.2 x10^3/uL (4.0-11.0) Red Blood Count 2.82 x10^6/uL (3.50-5.40) L Hemoglobin 7.7 g/dL (12.0-15.5) L Hematocrit 25.5 % (36.0-47.0) L Mean Corpuscular Volume 90 fL (79-100) Mean Corpuscular Hemoglobin 27 pg (25-35) Mean Corpuscular Hemoglobin Concent 30 g/dL (31-37) L Red Cell Distribution Width 17.6 % (11.5-14.5) H Platelet Count 137 x10^3/uL (140-400) L Neutrophils (%) (Auto) 78 % (31-73) H Lymphocytes (%) (Auto) 16 % (24-48) L Monocytes (%) (Auto) 5 % (0-9) Eosinophils (%) (Auto) 1 % (0-3) Basophils (%) (Auto) 1 % (0-3) Neutrophils # (Auto) 6.4 x10^3uL (1.8-7.7) Lymphocytes # (Auto) 1.3 x10^3/uL (1.0-4.8) Monocytes # (Auto) 0.4 x10^3/uL (0.0-1.1) Eosinophils # (Auto) 0.1 x10^3/uL (0.0-0.7) Basophils # (Auto) 0.0 x10^3/uL (0.0-0.2) Sodium Level 143 mmol/L (136-145) Potassium Level 4.8 mmol/L (3.5-5.1) Chloride Level 112 mmol/L (98-107) H Carbon Dioxide Level 9 mmol/L (21-32) *L Anion Gap 22 (6-14) H Blood Urea Nitrogen 92 mg/dL (7-20) H Creatinine 5.3 mg/dL (0.6-1.0) H Estimated GFR (Cockcroft-Gault) 8.0 BUN/Creatinine Ratio 17 (6-20) Glucose Level 102 mg/dL (70-99) H Lactic Acid Level 0.9 mmol/L (0.4-2.0) Calcium Level 7.8 mg/dL (8.5-10.1) L Total Bilirubin 0.3 mg/dL (0.2-1.0) Aspartate Amino Transferase (AST) 88 U/L (15-37) H Alanine Aminotransferase (ALT) 51 U/L (14-59) Alkaline Phosphatase 83 U/L (46-116) Total Protein 6.2 g/dL (6.4-8.2) L Albumin 3.4 g/dL (3.4-5.0) Albumin/Globulin Ratio 1.2 (1.0-1.7) Lipase 168 U/L (73-393) O2 Saturation 95 % (92-99) Arterial Blood pH 7.45 (7.35-7.45) Arterial Blood pCO2 at Patient Temp 27 mmHg (35-46) L Arterial Blood pO2 at Patient Temp 110 mmHg (65-108) H Arterial Blood HCO3 18 mmol/L (21-28) L Arterial Blood Base Excess -5 mmol/L (-3-3) L FiO2 21.0 Laboratory Tests 05/02/17 23:20 Laboratory Tests 05/03/17 00:05 EKG EKG [] Radiology/Procedures Radiology/Procedures [] Course & Med Decision Making Course & Med Decision Making Pertinent Labs and Imaging studies reviewed. (See chart for details) [] Dragon Disclaimer Dragon Disclaimer This electronic medical record was generated, in whole or in part, using a voice recognition dictation system. Departure Departure Impression: Primary Impression: Renal failure Additional Impression: Anemia Disposition: 01 HOME, SELF-CARE Admitting Physician: Camila Fernandez Condition: STABLE Referrals: NO PCP (PCP) Critical Care Time Critical care time was [34] minutes exclusive of procedures. Time was spent evaluating patient, ordering blood work, reviewing blood work, discussing with the admitting provider, documenting and ordering the administration of bicarbonate. Problem Qualifiers LLOYD TORIBIO MD May 02, 2017 23:22
[2017-05-02 23:30] LABS: BASO % 1 % (0-3); EOS % 1 % (0-3); HEMATOCRIT 25.5 % (36.0-47.0); HEMOGLOBIN 7.7 g/dL (12.0-15.5); LYMPH # 1.3 x10^3/uL (1.0-4.8); LYMPH % 16 % (24-48); MEAN CORPUSCULAR HEMOGLOBIN 27 pg (25-35); MEAN CORPUSCULAR HGB CONC 30 g/dL (31-37); MEAN CORPUSCULAR VOLUME 90 fL (79-100); MONO % 5 % (0-9); NEUT % 78 % (31-73); PLATELET COUNT 137 x10^3/uL (140-400); RED BLOOD COUNT 2.82 x10^6/uL (3.50-5.40); RED CELL DISTRIBUTION WIDTH 17.6 % (11.5-14.5); WHITE BLOOD COUNT 8.2 x10^3/uL (4.0-11.0)
[2017-05-03] VITALS (8 sets, daily range): BP systolic 103–140; BP diastolic 59–77
[2017-05-03 00:36] LABS: ALBUMIN 3.4 g/dL (3.4-5.0); ALBUMIN/GLOBULIN RATIO 1.2 (1.0-1.7); CALCIUM 7.8 mg/dL (8.5-10.1); CREATININE 5.3 mg/dL (0.6-1.0); POTASSIUM 4.8 mmol/L (3.5-5.1); TOTAL BILIRUBIN 0.3 mg/dL (0.2-1.0); TOTAL PROTEIN 6.2 g/dL (6.4-8.2)
[2017-05-03] MEDS ORDERED: ONDANSETRON PF 4 MG/2 ML VIAL. IV PRN (01:15)
[2017-05-03] MEDS ORDERED: MORPHINE SULFATE 2 MG/ML DISP.SYRIN. IV PRN (01:15)
[2017-05-03] MEDS ORDERED: SODIUM BICARB ADULT 8.4% 50 MEQ/50 ML DISP.SYRIN. IV ONE (01:15)
[2017-05-03 01:21] LABS: HCO3 ABG 18 mmol/L (21-28); PCO2 ABG 27 mmHg (35-46); PO2 ABG 110 mmHg (65-108); SAT O2 ABG 95 % (92-99)
[2017-05-03 01:22] LABS: PH ABG 7.45 (7.35-7.45)
--- NOTE | 2017-05-03 03:24 | RAD ---
CT abdomen and pelvis without contrast 05/03/2017 CLINICAL INDICATION: Abdominal pain and nausea. COMPARISON: None. Technique: Multiple CT images of the abdomen and pelvis were obtained without contrast according to standard protocol. *One or more of the following individualized dose reduction techniques were utilized for this examination: 1. Automated exposure control. 2. Adjustment of the mA and/or kV according to patient size. 3. Use of iterative reconstruction technique. Abdomen and pelvis findings: Heart size is mildly enlarged without significant pericardial effusion. There is minimal linear atelectasis and/or scarring in the visualized lung bases. Evaluation of the solid abdominal pelvic viscera, lymphadenopathy, and vasculature is limited in the absence of intravenous contrast. Unenhanced contours of the liver, spleen and left kidney are grossly unremarkable. There is mild fatty atrophy of the pancreas. Prior cholecystectomy. There are scattered areas of right renal cortical scarring. There are 2 nonobstructive calculi in the lower pole of the right kidney measuring 3 to 4 mm. No hydronephrosis. Abdominal aorta is tortuous and normal in caliber. There is marked gaseous and fluid dilatation of distal small bowel loops measuring up to 5.7 cm in the midabdomen with a high-grade transition point in the right lower quadrant of the abdomen near the base of the cecum. There is a C-shaped configuration of the marked small bowel dilatation in the right lower quadrant. No mesenteric edema, pneumatosis or pneumoperitoneum. No significant pelvic free fluid. Moderately distended and unopacified urinary bladder is unremarkable. No pelvic free fluid. Prior hysterectomy. Prior bilateral pelvic and periaortic lymph node dissection. There is diffuse rectus diastases. IMPRESSION: 1. Marked fluid and gas dilatation of distal small bowel loops up 5.2cm in the right lower quadrant with a C-shaped configuration and a focal transition point in the right lower quadrant near the terminal ileum compatible with high-grade small bowel obstruction, with concern for closed loop. 2. No mesenteric edema, pneumatosis or pneumoperitoneum. These results were discussed with Dr. Morgan the emergency service by telephone at 3:20 AM 05/03/2017 Electronically signed by: Chao Singh MD (05/03/2017 3:20 AM) [id number]
[2017-05-03] MEDS ORDERED: IV 1/2 NORMAL SALINE 1,000 ML IV ONE (04:30)
[2017-05-03 06:50] LABS: CALCIUM 7.8 mg/dL (8.5-10.1); CREATININE 5.1 mg/dL (0.6-1.0); GFR 8.4; POTASSIUM 4.3 mmol/L (3.5-5.1)
[2017-05-03 07:09] LABS: BASO % 1 % (0-3); EOS % 1 % (0-3); HEMATOCRIT 22.7 % (36.0-47.0); HEMOGLOBIN 7.1 g/dL (12.0-15.5); LYMPH # 1.2 x10^3/uL (1.0-4.8); LYMPH % 19 % (24-48); MEAN CORPUSCULAR HEMOGLOBIN 28 pg (25-35); MEAN CORPUSCULAR HGB CONC 31 g/dL (31-37); MEAN CORPUSCULAR VOLUME 90 fL (79-100); MONO % 8 % (0-9); NEUT % 72 % (31-73); PLATELET COUNT 112 x10^3/uL (140-400); RED BLOOD COUNT 2.54 x10^6/uL (3.50-5.40); WHITE BLOOD COUNT 6.3 x10^3/uL (4.0-11.0)
--- NOTE | 2017-05-03 09:04 | PDOC2 ---
CONSULT Date of Consult Date of Consult DATE: 05/03/17 TIME: 09:03 Reason for Consult Reason for Consult: KEYONNA/ CKD IV and Low Bicarb Referring Physician Referring Physician: Dr Fernandez Identification/Chief Complaint Chief Complaint NV Problems: Source Source: Chart review, Patient History of Present Illness Reason for Visit: PAST MEDICAL HISTORY: Extensive; however, her daughter and the patient are both not great historians. She is known to have heart murmur since her childhood. She has hypertension, asthma, sleep apnea, but does not use CPAP, hiatal hernia, abdominal hernia repair with bowel resection and colon cancer, status post partial colectomy, cholecystectomy, exogenous obesity, chronic diarrhea, GERD, cervical cancer status post hysterectomy, kidney stones status post surgery for the same including lithotripsy, cystoscopy, previous UTIs, chronic arthritis, right radial fracture and alcohol use in the past. SOCIAL HISTORY: Lives by herself. Occasional alcohol use. No current tobacco use. FAMILY HISTORY: Positive for kidney problems in the family. She cannot elaborate much on the same. Past Medical History Cardiovascular: HTN Past Surgical History Past Surgical History: Cholecystectomy, Hysterectomy Family History Family History: No Significant Social History ALCOHOL: none Drugs: None Current Problem List Problem List Problems Medical Problems: (1) Anemia Status: Acute (2) Renal failure Status: Acute Current Medications Current Medications Current Medications Ondansetron HCl (Zofran) 4 mg 1X ONCE IV Last administered on 05/02/17 23:27 ; Start 05/02/17 at 23:15; Stop 05/02/17 at 23:16; Status DC Multi-Ingredient Mouthwash/Gargle (Gi Cocktail Single Dose) 15 ml 1X ONCE SWSW Last administered on 05/02/17 23:27; Start 05/02/17 at 23:15; Stop 05/02/17 at 23:16; Status DC Sodium Bicarbonate 100 meq 1X ONCE IV Last administered on 05/03/17 01:17; Start 05/03/17 at 01:15; Stop 05/03/17 at 01:16; Status DC Ondansetron HCl (Zofran) 4 mg PRN Q8HRS PRN IV NAUSEA/VOMITING; Start 05/03/17 at 01:15; Stop 05/04/17 at 01:14 Morphine Sulfate 2 mg PRN Q2HR PRN IV PAIN; Start 9/21/17 at 01:15; Stop 05/04 at 01:14 Sodium Chloride 1,000 ml @ 125 mls/hr 1X ONCE IV Last administered on t 04:45; Start 05/03/17 at 04:30; Stop 05/03/17 at 12:29 Active Scripts Active Vitamin D2 (Ergocalciferol (Vitamin D2)) 50,000 Unit Capsule 50,000 Unit PO WEEKLY Folbic Tablet (Cyanocobalamin/Fa/Pyridoxine) 1 Each Tablet 1 Tab PO DAILY Calcitriol 0.25 Mcg Capsule 0.25 Mcg PO DAILY Reported Flovent 50MCG Diskus (Fluticasone Propionate) 50 Mcg Disk.w.dev 50 Mcg IH BID Imodium A-D (Loperamide Hcl) 1 Mg/7.5 Ml Liquid 2 Mg PO DAILY08 Norvasc (Amlodipine Besylate) 10 Mg Tablet 10 Mg PO DAILY08 Allergies Allergies: Coded Allergies: Penicillins (Verified Allergy, Intermediate, rash, 09/05/13) ROS Review of System GEN: no Fevers no Chills EYES: no new Visual Complaints ENT: no EN Drainage no Hearing deficiets CVS: no Orthopnea no CP RESP: no SOB no WILEY GI: + Nausea + Vomiting : no Dysuria no Urgency Good UO HEME: no easy bruising no Palp Ly Nodes NEURO no Focal Weakness no Sz PSYCH: no Suicidal Ideation no Depression SKIN: no Rashes ENDO: no Polyuria or Polydipsia no Hot/Cold Intolerance MU SK: occ Arthraigia no Myalgia Physical Exam Physical Exam General Appearance: Awake Alert Oriented x 3 In no obvious Distress Eyes: VIsion Unchanged Conjunctiva Normal EN: No EN Drainage Mucous Memb. mosit Neck: no JVD min JVP Supple no Thyromegaly CVS: S1 S2 ? Murmur No Gallop No Rub no Edema Resp: no Rales no Rhonchi no Acc. Muscle use GI: BS hypoactive to none NO Bruit non Tender Non Distended; Ventral Hernia + : no CVA tenderness; no Suprapubic Tenderness SKIN: no visible Rashes Breast Exam deferred Mu.Sk: Adequate ROM no Muscle Atrophy Heme: Unable to palpate Obvious LAD no palp Splenomegaly NEURO: Good Strength and Tone Cranial Nerves II - XII grossly intact; min hyperesthesia overlying antoine area Psych: not Depressed ; no Active hallucination ? CKD III at baseline : Based on Us report and Previous Creat of 1.8-2.3 in the past (07/2016) Proteinuria - Quantitate when UA is avail Microscopic Hematuria (min RBCs) await CK, ? need for Urine Myoglobin, Has h/o stones sev WAGMet Acidosis - cehck Lactate; Ct IVF with Bicarb; HD x 1 -2 to correct ? Source Anemia: [facility] [place]; may need Epogen Transfuse with next HD as needed. HTN: Current BP meds reviewed. See orders for changes. HypOcal - w/up as ordered, presumablyd ue to Low Mag Low Mag - IVF prn Mag as ordered Discussed Plan of Care and prognosis etc. at length with family. Vital Signs Vital Signs Date Time Temp Pulse Resp B/P (MAP) Pulse Ox O2 Delivery O2 Flow Rate FiO2 05/03/17 05:59 64 13 103/61 (75) 100 Room Air 05/03/17 02:13 97.9 97.9 Assessment & Plan KEYONNA - suspect VMn from NV. Current FLuid and E-lyte status does not necessitate emergent need for Dialysis. Will re-evaluate for Dialysis in am CKD IV Cr Cl was 20 in november ? Resp and element of Met Alkalosis - IVF as previously ordered. suspect due to NV and ? Element of SIRS/ Sepsis WAG Met Acidosis - suspect due to starvation. (Unable to order Ketones in this EHR) - lactate is WNL Anemia: recehck Iron, ? Epogen Transfuse as needed. for hgb < 7.0 HTN: Current BP meds reviewed. See orders for changes. Bone & Mineral: cehck Phos SBO - may need TPN Discussed Plan of Care and prognosis etc. at length with family. Labs Labs Laboratory Tests Test 05/02/17 23:20 05/03/17 00:05 05/03/17 00:56 05/03/17 03:30 White Blood Count 8.2 x10^3/uL (4.0-11.0) 6.3 x10^3/uL (4.0-11.0) Red Blood Count 2.82 x10^6/uL (3.50-5.40) 2.54 x10^6/uL (3.50-5.40) Hemoglobin 7.7 g/dL (12.0-15.5) 7.1 g/dL (12.0-15.5) Hematocrit 25.5 % (36.0-47.0) 22.7 % (36.0-47.0) Mean Corpuscular Volume 90 fL (79-100) 90 fL (79-100) Mean Corpuscular Hemoglobin 27 pg (25-35) 28 pg (25-35) Mean Corpuscular Hemoglobin Concent 30 g/dL (31-37) 31 g/dL (31-37) Red Cell Distribution Width 17.6 % (11.5-14.5) 17.0 % (11.5-14.5) Platelet Count 137 x10^3/uL (140-400) 112 x10^3/uL (140-400) Neutrophils (%) (Auto) 78 % (31-73) 72 % (31-73) Lymphocytes (%) (Auto) 16 % (24-48) 19 % (24-48) Monocytes (%) (Auto) 5 % (0-9) 8 % (0-9) Eosinophils (%) (Auto) 1 % (0-3) 1 % (0-3) Basophils (%) (Auto) 1 % (0-3) 1 % (0-3) Neutrophils # (Auto) 6.4 x10^3uL (1.8-7.7) 4.5 x10^3uL (1.8-7.7) Lymphocytes # (Auto) 1.3 x10^3/uL (1.0-4.8) 1.2 x10^3/uL (1.0-4.8) Monocytes # (Auto) 0.4 x10^3/uL (0.0-1.1) 0.5 x10^3/uL (0.0-1.1) Eosinophils # (Auto) 0.1 x10^3/uL (0.0-0.7) 0.1 x10^3/uL (0.0-0.7) Basophils # (Auto) 0.0 x10^3/uL (0.0-0.2) 0.0 x10^3/uL (0.0-0.2) Sodium Level 143 mmol/L (136-145) 146 mmol/L (136-145) Potassium Level 4.8 mmol/L (3.5-5.1) 4.3 mmol/L (3.5-5.1) Chloride Level 112 mmol/L (98-107) 114 mmol/L (98-107) Carbon Dioxide Level 9 mmol/L (21-32) 12 mmol/L (21-32) Anion Gap 22 (6-14) 20 (6-14) Blood Urea Nitrogen 92 mg/dL (7-20) 93 mg/dL (7-20) Creatinine 5.3 mg/dL (0.6-1.0) 5.1 mg/dL (0.6-1.0) Estimated GFR (Cockcroft-Gault) 8.0 8.4 BUN/Creatinine Ratio 17 (6-20) Glucose Level 102 mg/dL (70-99) 96 mg/dL (70-99) Lactic Acid Level 0.9 mmol/L (0.4-2.0) 1.1 mmol/L (0.4-2.0) Calcium Level 7.8 mg/dL (8.5-10.1) 7.8 mg/dL (8.5-10.1) Total Bilirubin 0.3 mg/dL (0.2-1.0) Aspartate Amino Transf (AST/SGOT) 88 U/L (15-37) Alanine Aminotransferase (ALT/SGPT) 51 U/L (14-59) Alkaline Phosphatase 83 U/L (46-116) Total Protein 6.2 g/dL (6.4-8.2) Albumin 3.4 g/dL (3.4-5.0) Albumin/Globulin Ratio 1.2 (1.0-1.7) Lipase 168 U/L (73-393) O2 Saturation 95 % (92-99) Arterial Blood pH 7.45 (7.35-7.45) Arterial Blood pCO2 at Patient Temp 27 mmHg (35-46) Arterial Blood pO2 at Patient Temp 110 mmHg (65-108) Arterial Blood HCO3 18 mmol/L (21-28) Arterial Blood Base Excess -5 mmol/L (-3-3) FiO2 21.0 Laboratory Tests Test 05/02/17 23:20 05/03/17 00:05 05/03/17 00:56 05/03/17 03:30 White Blood Count 8.2 x10^3/uL (4.0-11.0) 6.3 x10^3/uL (4.0-11.0) Red Blood Count 2.82 x10^6/uL (3.50-5.40) 2.54 x10^6/uL (3.50-5.40) Hemoglobin 7.7 g/dL (12.0-15.5) 7.1 g/dL (12.0-15.5) Hematocrit 25.5 % (36.0-47.0) 22.7 % (36.0-47.0) Mean Corpuscular Volume 90 fL (79-100) 90 fL (79-100) Mean Corpuscular Hemoglobin 27 pg (25-35) 28 pg (25-35) Mean Corpuscular Hemoglobin Concent 30 g/dL (31-37) 31 g/dL (31-37) Red Cell Distribution Width 17.6 % (11.5-14.5) 17.0 % (11.5-14.5) Platelet Count 137 x10^3/uL (140-400) 112 x10^3/uL (140-400) Neutrophils (%) (Auto) 78 % (31-73) 72 % (31-73) Lymphocytes (%) (Auto) 16 % (24-48) 19 % (24-48) Monocytes (%) (Auto) 5 % (0-9) 8 % (0-9) Eosinophils (%) (Auto) 1 % (0-3) 1 % (0-3) Basophils (%) (Auto) 1 % (0-3) 1 % (0-3) Neutrophils # (Auto) 6.4 x10^3uL (1.8-7.7) 4.5 x10^3uL (1.8-7.7) Lymphocytes # (Auto) 1.3 x10^3/uL (1.0-4.8) 1.2 x10^3/uL (1.0-4.8) Monocytes # (Auto) 0.4 x10^3/uL (0.0-1.1) 0.5 x10^3/uL (0.0-1.1) Eosinophils # (Auto) 0.1 x10^3/uL (0.0-0.7) 0.1 x10^3/uL (0.0-0.7) Basophils # (Auto) 0.0 x10^3/uL (0.0-0.2) 0.0 x10^3/uL (0.0-0.2) Sodium Level 143 mmol/L (136-145) 146 mmol/L (136-145) Potassium Level 4.8 mmol/L (3.5-5.1) 4.3 mmol/L (3.5-5.1) Chloride Level 112 mmol/L (98-107) 114 mmol/L (98-107) Carbon Dioxide Level 9 mmol/L (21-32) 12 mmol/L (21-32) Anion Gap 22 (6-14) 20 (6-14) Blood Urea Nitrogen 92 mg/dL (7-20) 93 mg/dL (7-20) Creatinine 5.3 mg/dL (0.6-1.0) 5.1 mg/dL (0.6-1.0) Estimated GFR (Cockcroft-Gault) 8.0 8.4 BUN/Creatinine Ratio 17 (6-20) Glucose Level 102 mg/dL (70-99) 96 mg/dL (70-99) Lactic Acid Level 0.9 mmol/L (0.4-2.0) 1.1 mmol/L (0.4-2.0) Calcium Level 7.8 mg/dL (8.5-10.1) 7.8 mg/dL (8.5-10.1) Total Bilirubin 0.3 mg/dL (0.2-1.0) Aspartate Amino Transf (AST/SGOT) 88 U/L (15-37) Alanine Aminotransferase (ALT/SGPT) 51 U/L (14-59) Alkaline Phosphatase 83 U/L (46-116) Total Protein 6.2 g/dL (6.4-8.2) Albumin 3.4 g/dL (3.4-5.0) Albumin/Globulin Ratio 1.2 (1.0-1.7) Lipase 168 U/L (73-393) O2 Saturation 95 % (92-99) Arterial Blood pH 7.45 (7.35-7.45) Arterial Blood pCO2 at Patient Temp 27 mmHg (35-46) Arterial Blood pO2 at Patient Temp 110 mmHg (65-108) Arterial Blood HCO3 18 mmol/L (21-28) Arterial Blood Base Excess -5 mmol/L (-3-3) FiO2 21.0 Images Images Indication acute renal failure superimposed on chronic disease. Grayscale imaging targeted to the kidneys was performed. Note is made of a previous examination 06/06/2008. The right kidney measures 10.6 x 4.1 x 3.2 cm. No hydronephrosis or discrete mass is seen. The left kidney measures 10.7 x 5.1 x 4.8 cm and also shows no evidence of hydronephrosis or mass. Both kidneys are somewhat echogenic suggesting medical renal disease. The urinary bladder appeared grossly normal. IMPRESSION: No evidence of hydronephrosis or mass seen associated with either kidney RUTH MONTANO MD May 03, 2017 09:04
[2017-05-03] MEDS ORDERED: MAGNESIUM SULFATE 2GM 50 ML IV PRN (09:15)
[2017-05-03] MEDS ORDERED: SODIUM BICARBONATE VIAL 75 MEQ in IV 1/2 NORMAL SALINE 1,000 ML IV SCH (10:00)
--- NOTE | 2017-05-03 10:01 | RAD ---
Chest, 2 views, 05/03/2017: History: Shortness of breath, respiratory alkalosis Comparison is made to a study from 11/26/2016. The heart size is mildly enlarged. There is calcific plaquing and tortuosity of the thoracic aorta. The pulmonary vascularity is normal. No pulmonary infiltrates are seen. The lungs are somewhat hyperexpanded. No significant pleural fluid is evident. Mild spurring is present in the spine. IMPRESSION: 1. Mild cardiomegaly and aortic atherosclerosis. 2. No acute abnormality is detected.
--- NOTE | 2017-05-03 10:22 | CONS ---
DATE OF CONSULTATION: PRIMARY PHYSICIAN: Dr. Fernandez. REASON FOR CONSULTATION: [id number] renal insufficiency and severe metabolic acidosis. HISTORY OF PRESENT ILLNESS: The patient is a 67-year-old -English female who was admitted here in November with renal failure and needed 1 or 2 rounds of dialysis. She eventually had 24-hour urine done which showed a creatinine clearance of 20 with 789 mg of protein in a 24-hour urine collection. She has not followed up with us since her hospitalization and was supposed to do so later this week by her reports. She was at that time noted to have urinary tract infection with E. coli, proteinuria, anemia, hypertension also. She was found to have NSAID-induced ATN, does not appear to have recovered from that by much. She developed increasing nausea, vomiting over the last few days and presented to the ER. In the ER, she underwent a CT, which now shows a small-bowel obstruction. She is n.p.o., has no bowel sounds on my exam. Lactic acid was within normal limits. I was called due to a bicarbonate of 9; however, an ABG was not conveyed to me at that time. She is noted to have what appears to be metabolic and respiratory alkalosis on her ABG of 7.45/25/110/18 on room air. However, on labs, her bicarbonate was only 9 with a gap of 22. Ketones are unable to be ordered in our system. I have been told by the lab they did not have reagent for checking the same. The patient was admitted to the ICU. She claims her urine output has been adequate so far. RUTH MONTANO MD DR: ALY/lacey JOB#: [id number] / [id number]
--- NOTE | 2017-05-03 10:32 | PDOC2 ---
CONSULT Date of Consult Date of Consult DATE: 05/03/17 TIME: 10:17 Reason for Consult Reason for Consult: small bowel obstruction Referring Physician Referring Physician: Dr Fernandez Identification/Chief Complaint Chief Complaint nausea and vomiting Problems: Source Source: Caregiver, Chart review, Patient History of Present Illness Reason for Visit: Ms Murillo is a 67 yo lady who presents with a two week hx of some abdominal pain, nausea and vomiting. Neither she nor her daughter at the bedside are clear on some of her past medical issues. They do agree that she was hospitalized earlier this year and required a short term of dialysis. Beyond that, much of the information about her past medical issues is garnered from old records Past Medical History Cardiovascular: HTN, Other (murmur) Pulmonary: Asthma, Other (sleep apnea) GI: GERD, Other (colon cancer) Heme/Onc: Anemia NOS Renal/: Chronic renal insuff, Acute renal failure, UTI, Other (kidney stones) Past Surgical History Past Surgical History: Cholecystectomy, Hernia Repair, Hysterectomy Family History Family History: No Significant, Kidney Disease Social History Quit ALCOHOL: occassional Drugs: None Current Problem List Problem List Problems Medical Problems: (1) Anemia Status: Acute (2) Renal failure Status: Acute Current Medications Current Medications Current Medications Ondansetron HCl (Zofran) 4 mg 1X ONCE IV Last administered on 05/02/17 23:27 ; Start 05/02/17 at 23:15; Stop 05/02/17 at 23:16; Status DC Multi-Ingredient Mouthwash/Gargle (Gi Cocktail Single Dose) 15 ml 1X ONCE SWSW Last administered on 05/02/17 23:27; Start 05/02/17 at 23:15; Stop 05/02/17 at 23:16; Status DC Sodium Bicarbonate 100 meq 1X ONCE IV Last administered on 05/03/17 01:17; Start 05/03/17 at 01:15; Stop 05/03/17 at 01:16; Status DC Ondansetron HCl (Zofran) 4 mg PRN Q8HRS PRN IV NAUSEA/VOMITING; Start 05/03/17 at 01:15; Stop 05/04/17 at 01:14 Morphine Sulfate 2 mg PRN Q2HR PRN IV PAIN; Start 05/03/17 at 01:15; Stop 05/04 at 01:14 Sodium Chloride 1,000 ml @ 125 mls/hr 1X ONCE IV Last administered on t 04:45; Start 05/03/17 at 04:30; Stop 05/03/17 at 12:29 Magnesium Sulfate/ Dextrose 50 ml @ 25 mls/hr PRN DAILY PRN IV for Mag < 1.7 on am labs; Start 05/03/17 at 09:15 Sodium Bicarbonate 75 meq/Sodium Chloride 1,075 ml @ 75 mls/hr [id number] IV ; Start 05/03/17 at 10:00 Active Scripts Active Vitamin D2 (Ergocalciferol (Vitamin D2)) 50,000 Unit Capsule 50,000 Unit PO WEEKLY Folbic Tablet (Cyanocobalamin/Fa/Pyridoxine) 1 Each Tablet 1 Tab PO DAILY Calcitriol 0.25 Mcg Capsule 0.25 Mcg PO DAILY Reported Flovent 50MCG Diskus (Fluticasone Propionate) 50 Mcg Disk.w.dev 50 Mcg IH BID Imodium A-D (Loperamide Hcl) 1 Mg/7.5 Ml Liquid 2 Mg PO DAILY08 Norvasc (Amlodipine Besylate) 10 Mg Tablet 10 Mg PO DAILY08 Allergies Allergies: Coded Allergies: Penicillins (Verified Allergy, Intermediate, rash, 09/05/13) ROS General: No: Chills, Night Sweats, Fatigue, Malaise, Appetite, Other Gastrointestinal: Yes Nausea, Yes Vomiting, Yes Abdominal Pain Physical Exam General: Alert, Oriented X3, Cooperative, No acute distress HEENT: Atraumatic Lungs: Normal air movement Heart: Regular rate Abdomen: Soft, Other (protuberent 2/2 diastasis, well healed midline scar from xyphoid to pubis, minimally TTP without mass) Skin: No rashes Neuro: Normal speech Vitals VITALS Vital Signs Date Time Temp Pulse Resp B/P (MAP) Pulse Ox O2 Delivery O2 Flow Rate FiO2 05/03/17 05:59 64 13 103/61 (75) 100 Room Air 05/03/17 02:13 97.9 97.9 Labs Labs Laboratory Tests Test 05/02/17 23:20 05/03/17 00:05 05/03/17 00:56 05/03/17 03:30 White Blood Count 8.2 x10^3/uL (4.0-11.0) 6.3 x10^3/uL (4.0-11.0) Red Blood Count 2.82 x10^6/uL (3.50-5.40) 2.54 x10^6/uL (3.50-5.40) Hemoglobin 7.7 g/dL (12.0-15.5) 7.1 g/dL (12.0-15.5) Hematocrit 25.5 % (36.0-47.0) 22.7 % (36.0-47.0) Mean Corpuscular Volume 90 fL (79-100) 90 fL (79-100) Mean Corpuscular Hemoglobin 27 pg (25-35) 28 pg (25-35) Mean Corpuscular Hemoglobin Concent 30 g/dL (31-37) 31 g/dL (31-37) Red Cell Distribution Width 17.6 % (11.5-14.5) 17.0 % (11.5-14.5) Platelet Count 137 x10^3/uL (140-400) 112 x10^3/uL (140-400) Neutrophils (%) (Auto) 78 % (31-73) 72 % (31-73) Lymphocytes (%) (Auto) 16 % (24-48) 19 % (24-48) Monocytes (%) (Auto) 5 % (0-9) 8 % (0-9) Eosinophils (%) (Auto) 1 % (0-3) 1 % (0-3) Basophils (%) (Auto) 1 % (0-3) 1 % (0-3) Neutrophils # (Auto) 6.4 x10^3uL (1.8-7.7) 4.5 x10^3uL (1.8-7.7) Lymphocytes # (Auto) 1.3 x10^3/uL (1.0-4.8) 1.2 x10^3/uL (1.0-4.8) Monocytes # (Auto) 0.4 x10^3/uL (0.0-1.1) 0.5 x10^3/uL (0.0-1.1) Eosinophils # (Auto) 0.1 x10^3/uL (0.0-0.7) 0.1 x10^3/uL (0.0-0.7) Basophils # (Auto) 0.0 x10^3/uL (0.0-0.2) 0.0 x10^3/uL (0.0-0.2) Sodium Level 143 mmol/L (136-145) 146 mmol/L (136-145) Potassium Level 4.8 mmol/L (3.5-5.1) 4.3 mmol/L (3.5-5.1) Chloride Level 112 mmol/L (98-107) 114 mmol/L (98-107) Carbon Dioxide Level 9 mmol/L (21-32) 12 mmol/L (21-32) Anion Gap 22 (6-14) 20 (6-14) Blood Urea Nitrogen 92 mg/dL (7-20) 93 mg/dL (7-20) Creatinine 5.3 mg/dL (0.6-1.0) 5.1 mg/dL (0.6-1.0) Estimated GFR (Cockcroft-Gault) 8.0 8.4 BUN/Creatinine Ratio 17 (6-20) Glucose Level 102 mg/dL (70-99) 96 mg/dL (70-99) Lactic Acid Level 0.9 mmol/L (0.4-2.0) 1.1 mmol/L (0.4-2.0) Calcium Level 7.8 mg/dL (8.5-10.1) 7.8 mg/dL (8.5-10.1) Total Bilirubin 0.3 mg/dL (0.2-1.0) Aspartate Amino Transf (AST/SGOT) 88 U/L (15-37) Alanine Aminotransferase (ALT/SGPT) 51 U/L (14-59) Alkaline Phosphatase 83 U/L (46-116) Total Protein 6.2 g/dL (6.4-8.2) Albumin 3.4 g/dL (3.4-5.0) Albumin/Globulin Ratio 1.2 (1.0-1.7) Lipase 168 U/L (73-393) O2 Saturation 95 % (92-99) Arterial Blood pH 7.45 (7.35-7.45) Arterial Blood pCO2 at Patient Temp 27 mmHg (35-46) Arterial Blood pO2 at Patient Temp 110 mmHg (65-108) Arterial Blood HCO3 18 mmol/L (21-28) Arterial Blood Base Excess -5 mmol/L (-3-3) FiO2 21.0 Reticulocyte Count (auto) 1.3 % (0.5-2.5) Ferritin 842 ng/mL (8-252) Laboratory Tests Test 05/02/17 23:20 05/03/17 00:05 05/03/17 00:56 05/03/17 03:30 White Blood Count 8.2 x10^3/uL (4.0-11.0) 6.3 x10^3/uL (4.0-11.0) Red Blood Count 2.82 x10^6/uL (3.50-5.40) 2.54 x10^6/uL (3.50-5.40) Hemoglobin 7.7 g/dL (12.0-15.5) 7.1 g/dL (12.0-15.5) Hematocrit 25.5 % (36.0-47.0) 22.7 % (36.0-47.0) Mean Corpuscular Volume 90 fL (79-100) 90 fL (79-100) Mean Corpuscular Hemoglobin 27 pg (25-35) 28 pg (25-35) Mean Corpuscular Hemoglobin Concent 30 g/dL (31-37) 31 g/dL (31-37) Red Cell Distribution Width 17.6 % (11.5-14.5) 17.0 % (11.5-14.5) Platelet Count 137 x10^3/uL (140-400) 112 x10^3/uL (140-400) Neutrophils (%) (Auto) 78 % (31-73) 72 % (31-73) Lymphocytes (%) (Auto) 16 % (24-48) 19 % (24-48) Monocytes (%) (Auto) 5 % (0-9) 8 % (0-9) Eosinophils (%) (Auto) 1 % (0-3) 1 % (0-3) Basophils (%) (Auto) 1 % (0-3) 1 % (0-3) Neutrophils # (Auto) 6.4 x10^3uL (1.8-7.7) 4.5 x10^3uL (1.8-7.7) Lymphocytes # (Auto) 1.3 x10^3/uL (1.0-4.8) 1.2 x10^3/uL (1.0-4.8) Monocytes # (Auto) 0.4 x10^3/uL (0.0-1.1) 0.5 x10^3/uL (0.0-1.1) Eosinophils # (Auto) 0.1 x10^3/uL (0.0-0.7) 0.1 x10^3/uL (0.0-0.7) Basophils # (Auto) 0.0 x10^3/uL (0.0-0.2) 0.0 x10^3/uL (0.0-0.2) Sodium Level 143 mmol/L (136-145) 146 mmol/L (136-145) Potassium Level 4.8 mmol/L (3.5-5.1) 4.3 mmol/L (3.5-5.1) Chloride Level 112 mmol/L (98-107) 114 mmol/L (98-107) Carbon Dioxide Level 9 mmol/L (21-32) 12 mmol/L (21-32) Anion Gap 22 (6-14) 20 (6-14) Blood Urea Nitrogen 92 mg/dL (7-20) 93 mg/dL (7-20) Creatinine 5.3 mg/dL (0.6-1.0) 5.1 mg/dL (0.6-1.0) Estimated GFR (Cockcroft-Gault) 8.0 8.4 BUN/Creatinine Ratio 17 (6-20) Glucose Level 102 mg/dL (70-99) 96 mg/dL (70-99) Lactic Acid Level 0.9 mmol/L (0.4-2.0) 1.1 mmol/L (0.4-2.0) Calcium Level 7.8 mg/dL (8.5-10.1) 7.8 mg/dL (8.5-10.1) Total Bilirubin 0.3 mg/dL (0.2-1.0) Aspartate Amino Transf (AST/SGOT) 88 U/L (15-37) Alanine Aminotransferase (ALT/SGPT) 51 U/L (14-59) Alkaline Phosphatase 83 U/L (46-116) Total Protein 6.2 g/dL (6.4-8.2) Albumin 3.4 g/dL (3.4-5.0) Albumin/Globulin Ratio 1.2 (1.0-1.7) Lipase 168 U/L (73-393) O2 Saturation 95 % (92-99) Arterial Blood pH 7.45 (7.35-7.45) Arterial Blood pCO2 at Patient Temp 27 mmHg (35-46) Arterial Blood pO2 at Patient Temp 110 mmHg (65-108) Arterial Blood HCO3 18 mmol/L (21-28) Arterial Blood Base Excess -5 mmol/L (-3-3) FiO2 21.0 Reticulocyte Count (auto) 1.3 % (0.5-2.5) Ferritin 842 ng/mL (8-252) Images Images CT scans from last night reviewed with the radiologist Assessment/Plan Assessment/Plan SBO with possible closed loop , no findings to suggest compromise abdominal diastasis acute on chronic renal failure chronic anemia with hx of previous colon resection for cancer no surgical recs at present, may need exploration at some pointyou NG for any recurrent n/v serial exams other medical issues being addressed will follow with you Thanks for consult NEMESIO BRICENO MD May 03, 2017 10:32
--- NOTE | 2017-05-03 11:35 | PDOC ---
Provider Note Provider Note dictated NIDHI CERVANTES MD May 03, 2017 11:35
--- NOTE | 2017-05-03 11:45 | RAD ---
Bilateral lower extremity venous ultrasound, 05/03/2017: History: Bilateral leg pain Duplex evaluation of the deep veins in the lower extremities was performed including grayscale, color-flow and spectral Doppler analysis. The femoral and popliteal veins demonstrate normal compressibility and normal responses to distal augmentation maneuvers. Color imaging of those vessels shows no evidence of intraluminal clot. The visualized deep veins in both calves are patent. IMPRESSION: There is no sonographic evidence of deep vein thrombosis in either lower extremity.
--- NOTE | 2017-05-03 11:55 | CONS ---
DATE OF CONSULTATION: 05/03/2017 ATTENDING PHYSICIAN: Dr. Fernandez. REASON FOR CONSULTATION: Abnormal arterial blood gases, asthma. HISTORY OF PRESENT ILLNESS: The patient is a 67-year-old female who has no significant history of tobacco use. She says she did have a history of asthma as a child. She did outgrow it, but now lately in the last few months she states that the asthma has come back and she has to use a lot of her p.r.n. inhaler. The patient was hospitalized with complaint of abdominal pain along with some nausea and vomiting. She had a history of renal failure in November and required a few dialysis sessions. Her renal function did improve. At that time, she was treated for Escherichia coli urinary tract infection. The patient was also noted to have nonsteroidal induced acute tubular necrosis. During this presentation, her CT abdomen was performed, which showed high-grade small-bowel obstruction. Her lactic acid was within normal limits and she had metabolic acidosis with a bicarbonate of 9, which is now up to 12 on latest chemistries. She is also in acute renal failure with a BUN of 93 and a creatinine of 5.1. She has not been eating and drinking well for the last week or so. She is currently being on IV fluids. Her chest x-ray was reviewed and it showed mild cardiomegaly, but no acute pulmonary infiltrates were seen. Her venous Dopplers of the lower extremities were negative as well. I have been asked to see her for further evaluation. She is in no obvious respiratory distress. She has an occasional cough. No fever, no chills. No purulent sputum production. Her chest x-ray was clear. PAST MEDICAL HISTORY: Significant for history of asthma as a child. She outgrew it and then developed recurrent symptoms in the last few months. History of previous renal failure, history of urinary tract infections, history of chronic arthritis, history of temporary dialysis in November. History of renal stones, status post surgery including lithotripsy, cystoscopy. FAMILY HISTORY: Noncontributory to lungs. SOCIAL HISTORY: Nonsmoker. ALLERGIES: PENICILLIN. MEDICATIONS: Reviewed as listed in the MRAD including bicarbonate drip. PHYSICAL EXAMINATION: GENERAL: She is awake, following commands. VITAL SIGNS: Blood pressure 103-117 systolic. Pulse ox 100% on room air, afebrile. HEENT: Sclerae nonicteric. NECK: Supple. LUNGS: Clear. CARDIOVASCULAR: Regular rate. ABDOMEN: Soft, mildly tender. She has an umbilical hernia. EXTREMITIES: With no pitting edema. LABORATORY DATA: Reviewed. Her sodium 146, bicarbonate is up to 12, anion gap 20, BUN 93, creatinine 5.1. Her albumin is 3.4. ABGs with a pH of 7.45, pCO2 of 27, pO2 of 110, bicarbonate 18 on room air. Hemoglobin 7.1, white cell count 6.3. IMPRESSION: 1. Abnormal arterial blood gases secondary to acute metabolic acidosis with respiratory compensation. 2. Increased anion gap metabolic acidosis secondary to acute kidney injury, most likely from dehydration. Her lactic acid is normal. 3. History of asthma as a child. She did outgrow it, but then in last few months her asthma has been under suboptimal control. She would benefit from maintenance steroid inhaler and in hospital we will provide her Pulmicort nebulizer treatment. 4. Clear chest x-ray. 5. Acute renal failure, suspect caused by dehydration. I would recommend aggressive hydration. 6. Small-bowel obstruction. Being followed by Surgery. RECOMMENDATIONS: 1. From pulmonary standpoint, her breathing seems to be stable. I would place her on nebulizer treatments with Pulmicort and at discharge I would place her on Flovent. 2. Aggressive volume resuscitation. 3. Monitor renal function. 4. Monitor hemoglobin closely, could be anemia of chronic renal disease. 5. Follow Renal and Surgery recommendations. 6. Follow anion gap. 7. Continue with bicarbonate. 8. Discussed with RN. We will follow along with you. Critical care time 30 minutes. NIDHI CERVANTES MD DR: CARLYLE/lacey JOB#: [id number] / [id number]
[2017-05-03] MEDS: BUDESONIDE 0.5 MG/2 ML NEBU. NEB SCH ×2 (12:00→20:00)
[2017-05-03] MEDS ORDERED: IV NORMAL SALINE 1000ML BAG 1,000 ML IV ONE (12:30)
[2017-05-03] MEDS: LOPERAMIDE 2 MG CAPSULE PO SCH (14:13)
[2017-05-03] MEDS: CALCITRIOL 0.25 MCG CAPSULE. PO SCH (14:14)
[2017-05-03] MEDS: VITAMIN B12,B9,B6 COMPLEX 1 TABLET. PO SCH (14:14)
--- NOTE | 2017-05-03 14:31 | HP ---
ADMIT DATE: 05/03/2017 CHIEF COMPLAINT: Nausea, vomiting, diarrhea. HISTORY OF PRESENT ILLNESS: The patient is a pleasant 67-year-old female who had a history of some type of colon or intestinal cancer. She states it was at the junction of the two. Basically, she has got a large incisional ventral hernia, now it has been occurring for several years. Periodically, she has developed pain in the ventral hernia site. She now has nausea, vomiting, diarrhea. I discussed the case with the ER physician. It appears she has an incidental finding of acute renal failure with a creatinine of 5.3 and a BUN of 92. We are going to admit the patient and consult nephrology and GI. PAST MEDICAL HISTORY: Probable chronic renal insufficiency with some type of intestinal cancer, hypertension, umbilical hernia, ventral hernia, incisional hernia, appendectomy, hysterectomy. ALLERGIES: PENICILLIN. FAMILY HISTORY: Hypertension. SOCIAL HISTORY: She does not drink, smoke or take drugs. MEDICATIONS: Reviewed. REVIEW OF SYSTEMS: GENERAL: No history of weight change, weakness or fevers. SKIN: No bruising, hair changes or rashes. EYES: No blurred, double or loss of vision. NOSE AND THROAT: No history of nosebleeds, hoarseness or sore throat. HEART: No history of palpitations, chest pain or shortness of breath on exertion. LUNGS: Denies cough, hemoptysis, wheezing or shortness of breath. GASTROINTESTINAL: Complains of abdominal pain, nausea and vomiting. GENITOURINARY: No history of frequency, urgency, hesitancy or nocturia. NEUROLOGIC: Denies history of numbness, tingling, tremor or weakness. PSYCHIATRIC: No history of panic, anxiety or depression. ENDOCRINE: No history of heat or cold intolerance, polyuria or polydipsia. EXTREMITIES: Denies muscle weakness, joint pain, pain on walking or stiffness. PHYSICAL EXAMINATION: VITAL SIGNS: Temperature afebrile, pulse 92, respirations 16, blood pressure 119/61. GENERAL: She is alert, cooperative, lot of family members present, they are good support for her. HEART: Normal S1, S2. LUNGS: Clear. ABDOMEN: Soft, is distended. There is a large ventral hernia right over the incision, it is basically an incisional hernia that happens to be in the ventral region. When she sits up a little bit, you can see loops of bowel pushing through under the skin, but I do not see any incarceration. It is nontender at this time. EXTREMITIES: No edema. SKIN: No rashes. PSYCHIATRIC: She is a little depressed. VASCULAR: Good capillary refill. ENDOCRINE: No thyromegaly. LYMPHATICS: No cervical nodes. HEMATOPOIETIC: No bruising. LABORATORY DATA: White count 8, hemoglobin 7, platelets 137. Electrolytes: Sodium 143, potassium of 4.8, chloride 112, bicarbonate 22, BUN 92, creatinine 5.3, glucose 102, AST 88, ALT 51, total protein 6.2. ASSESSMENT AND PLAN: Acute on chronic renal failure, suspect end-stage renal disease with incidental finding of some anemia, nausea and vomiting. The patient will be admitted, we will consult GI and nephrology. Continue home medicines, frequent labs, IV hydration, p.r.n. antiemetics. ALICIA FLORENCE DO DR: BRADLEY/lacey JOB#: [id number] / [id number]
[2017-05-03] MEDS: amLODIPine BESYLATE 10 MG TABLET PO SCH (15:00)
[2017-05-03] MEDS ORDERED: NON FORMULARY ITEM (Fluticasone Propionate (Flovent 50MCG Diskus) 50 MCG) IH SCH (21:00)
[2017-05-03] MEDS: IV NORMAL SALINE 1000ML BAG 1,000 ML IV SCH (21:30)
[2017-05-04] VITALS (19 sets, daily range): BP systolic 102–140; BP diastolic 64–87
--- NOTE | 2017-05-04 01:37 | CONS ---
DATE OF CONSULTATION: 05/03/2017 MEDICAL ONCOLOGY CONSULTATION REPORT CONSULTATION REQUESTED BY: Camila Fernandez III, DO REASON FOR CONSULTATION: Abdominal pain, small-bowel obstruction and history of colon cancer. HISTORY OF PRESENT ILLNESS: The patient is a 67-year-old -[place] female who has a history of colon cancer in the past and she is not sure about when it was diagnosed and treated. She reports that she underwent surgery and she has not had any chemotherapy. She reports that it has been many years since the diagnosis. In July 2016, she was admitted to [facility] with severe pancytopenia with WBC of 1.4, hemoglobin 5.2, MCV 110, and platelets of 28. B12 level was less than 30 thought to be due to decrease absorption from previous bowel surgery. Bone marrow biopsy did not reveal any evidence of primary bone marrow disorders. Abdominal ultrasound was negative. She was given B12 injections and her pancytopenia improved. She is now admitted with complaints of nausea and vomiting to [facility]. She was admitted on 05/03/2017. She underwent further evaluation with a CT scan of the abdomen and pelvis on 05/03/2017, which revealed marked fluid and gas dilation of the distal small bowel loops suggestive of high grade small-bowel obstruction. Surgery was consulted and she is currently being managed conservatively. I was asked to see the patient because of her prior history of colon cancer. She denies hematemesis, melena, hematochezia, no hemoptysis or hematuria. No loss of weight or loss of appetite. PAST MEDICAL HISTORY: Chronic renal insufficiency, bronchial asthma, urinary tract infection, history of temporary dialysis in November 2016, history of renal stones. FAMILY HISTORY: Negative for primary hematologic disorders. SOCIAL HISTORY: No smoking or alcohol abuse. REVIEW OF SYSTEMS: A 12-point review of system was performed. Pertinent positives are mentioned in the history of present illness. Rest of the system review is negative. PHYSICAL EXAMINATION: GENERAL APPEARANCE: The patient is a 67-year-old -[place] female who is in no acute cardiorespiratory distress. VITAL SIGNS: Blood pressure 119/70, temperature 97.7. HEENT: Atraumatic, normocephalic. Eyes: No icterus. NECK: Supple. CHEST: Bilaterally symmetrical. HEART: S1, S2 normal. ABDOMEN: Soft, mild tenderness to deep palpation. Abdomen is distended. CENTRAL NERVOUS SYSTEM: No focal deficits. LYMPHATICS: No lymphadenopathy. SKIN: No rashes. PSYCHOLOGIC: Mood and affect are appropriate. MUSCULOSKELETAL: No joint effusions. LABORATORY DATA: WBC 6.3, hemoglobin 7.1, platelet count 112, reticulocyte count is 1.3, ferritin is 842. IMPRESSION AND PLAN: 1. Small-bowel obstruction. Appreciate surgical consultation and management. CT scan does not reveal any evidence of recurrent colon cancer. Continue management of obstruction by surgery. 2. Anemia. She has history of B12 deficiency. I will check B12 levels. 3. Thrombocytopenia. This could be due to B12 deficiency. I will check B12 levels. 4. Colon cancer in the past. I will obtain records regarding her cancer. I will also check a CEA level. ALIN MAXWELL MD DR: Jessica JOB#: [id number] / [id number] KARMA
[2017-05-04 05:50] LABS: BASO % 1 % (0-3); EOS % 2 % (0-3); HEMATOCRIT 21.2 % (36.0-47.0); LYMPH % 20 % (24-48); MEAN CORPUSCULAR HEMOGLOBIN 28 pg (25-35); MEAN CORPUSCULAR HGB CONC 31 g/dL (31-37); MEAN CORPUSCULAR VOLUME 88 fL (79-100); MONO % 6 % (0-9); NEUT % 72 % (31-73); PLATELET COUNT 104 x10^3/uL (140-400); RED BLOOD COUNT 2.42 x10^6/uL (3.50-5.40); RED CELL DISTRIBUTION WIDTH 16.9 % (11.5-14.5); WHITE BLOOD COUNT 4.9 x10^3/uL (4.0-11.0)
[2017-05-04] MEDS: IV NORMAL SALINE 1000ML BAG 1,000 ML IV SCH (06:01)
[2017-05-04 06:08] LABS: % SAT IRON 35 % (15-34); CALCIUM 7.2 mg/dL (8.5-10.1); CREATININE 4.8 mg/dL (0.6-1.0); IRON,SERUM 52 ug/dL (50-170); PHOSPHORUS 6.5 mg/dL (2.6-4.7); POTASSIUM 3.9 mmol/L (3.5-5.1)
[2017-05-04 06:23] LABS: HEMOGLOBIN 6.7 g/dL (12.0-15.5)
[2017-05-04] MEDS ORDERED: IV 1/2 NORMAL SALINE 1,000 ML IV SCH (07:30)
[2017-05-04 07:51] LABS: VITAMIN-B12 611 pg/mL (247-911)
[2017-05-04 07:55] LABS: FOLATE > 24.00 ng/ml (3.2-20.0)
[2017-05-04] MEDS: BUDESONIDE 0.5 MG/2 ML NEBU. NEB SCH ×2 (08:00→20:00)
[2017-05-04] MEDS: amLODIPine BESYLATE 10 MG TABLET PO SCH (08:00)
[2017-05-04] MEDS: LOPERAMIDE 2 MG CAPSULE PO SCH (08:00)
[2017-05-04] MEDS: VITAMIN B12,B9,B6 COMPLEX 1 TABLET. PO SCH (09:00)
[2017-05-04] MEDS: CALCITRIOL 0.25 MCG CAPSULE. PO SCH (09:00)
--- NOTE | 2017-05-04 09:33 | RAD ---
Indication evaluate for small bowel obstruction. Supine and upright films of the abdomen were obtained. No recent plain film imaging is available. Note is made of the CT examination of the abdomen and pelvis yesterday. The lung bases appear clear. There is no free air. A dilated loop of bowel in the midabdomen is noted. There are scattered air-fluid levels on the upright film which are nonspecific and may be reflective of partial mechanical obstruction or ileus. Some gas is seen in the rectosigmoid. IMPRESSION: High-grade mechanical small bowel obstruction is not suggested on this exam although ileus or partial mechanical obstruction are not excluded.
--- NOTE | 2017-05-04 10:02 | PDOC ---
SUBJECTIVE ROS KEYONNA/ CKD IV She feels a little better overall, no BM yet CVS: no Orthopnea, no CP RESP: min SOB, ? WILEY GI: no Nausea, no Vomiting : no Dysuria, no Urgency OBJECTIVE Vital Signs Vital Signs Date Time Temp Pulse Resp B/P (MAP) Pulse Ox O2 Delivery O2 Flow Rate FiO2 05/04/17 08:15 Room Air 05/04/17 07:30 97.7 69 18 126/71 (89) 97 97.7 PHYSICAL EXAM Physical Exam General Appearance: Awake Alert Oriented x 3 In no obvious Distress Eyes: VIsion Unchanged Conjunctiva Normal EN: No EN Drainage Mucous Memb. mosit Neck: no JVD min JVP Supple no Thyromegaly CVS: S1 S2 ? Murmur No Gallop No Rub no Edema Resp: no Rales no Rhonchi no Acc. Muscle use GI: BS hypoactive to none NO Bruit non Tender Non Distended; Ventral Hernia + : no CVA tenderness; no Suprapubic Tenderness SKIN: no visible Rashes Breast Exam deferred Mu.Sk: Adequate ROM no Muscle Atrophy Heme: Unable to palpate Obvious LAD no palp Splenomegaly NEURO: Good Strength and Tone Cranial Nerves II - XII grossly intact; Psych: not Depressed ; no Active hallucination DIAGNOSIS/ASSESSMENT Assessment & Plan KEYONNA - with persistent oliguria as documented. IVF as ordered. Current FLuid and E-lyte status does not necessitate emergent need for Dialysis. Will re- evaluate for Dialysis in am. HD Cath placement today ^Na - Hypotonic IVF as ordered ? CKD III / IV at baseline : Based on Us report and Previous Creat of 1.8-2.3 in the past (07/2016) Proteinuria in the past - Quantitate when UA is avail Microscopic Hematuria (min RBCs) await CK, ? need for Urine Myoglobin, Has h/o stones WAGMet Acidosis - Gap is closing; IVF with Bicarb; HD x 1 -2 to correct if needed. ^ed Phos - watch trend with D5 in IVF. Anemia: OK on [place]; start Epogen. Transfuse with next HD as needed.? Dilutional HTN: Current BP meds reviewed. See orders for changes. HypOcal - w/up as ordered, presumably due to Low Mag Low Mag - IVF prn Mag as ordered SBO - defer to Gen surgery - ? need for TPn in near future - Trialysis Cath to be placed later today Subj SOB - not sure if this is fluid status mediated vs due to Low bicarb - hence IVF with Bicarb and see if it helps Discussed Plan of Care and prognosis etc. at length with Pt Problems: COMMENT/RELEVANT DATA Meds Current Medications Medications (Trade) Dose Ordered Sig/Rebecca Start Time Stop Time Status Last Admin Dose Admin Amlodipine Besylate (Norvasc) 10 mg DAILY08 05/03/17 15:00 Budesonide (Pulmicort) 0.5 mg RTBID 05/03/17 12:00 Calcitriol (Rocaltrol) 0.25 mcg DAILY 05/03/17 15:00 Ergocalciferol (Vitamin D2) 50,000 unit WEEKLY 05/10/17 09:00 Loperamide HCl (Imodium) 2 mg DAILY08 05/03/17 15:00 Magnesium Sulfate/ Dextrose 50 ml @ 25 mls/hr PRN DAILY PRN 05/03/17 09:15 Morphine Sulfate 2 mg PRN Q2HR PRN 05/03/17 01:15 05/04/17 01:14 DC Multi-Ingredient Mouthwash/Gargle (Gi Cocktail Single Dose) 15 ml 1X ONCE 05/02/17 23:15 05/02/17 23:16 DC 05/02/17 23:27 15 ML Non-Formulary Medication 50 mcg BID 05/03/17 21:00 05/03/17 21:00 DC Ondansetron HCl (Zofran) 4 mg PRN Q8HRS PRN 05/03/17 01:15 05/04/17 01:14 DC Sodium Bicarbonate 75 meq/Sodium Chloride 1,075 ml @ 75 mls/hr [id number] 05/03/17 10:00 05/03/17 21:50 DC 05/03/17 17:17 75 MLS/HR Sodium Bicarbonate 100 meq 1X ONCE 05/03/17 01:15 05/03/17 01:16 DC 05/03/17 01:17 100 MEQ Sodium Chloride 1,000 ml @ 100 mls/hr Q10H 05/04/17 07:30 05/04/17 07:10 100 MLS/HR Vitamin B Complex (Folbic Tablet) 1 tab DAILY 05/03/17 15:00 Lab Laboratory Tests Test 05/04/17 04:40 White Blood Count 4.9 x10^3/uL (4.0-11.0) Red Blood Count 2.42 x10^6/uL (3.50-5.40) Hemoglobin 6.7 g/dL (12.0-15.5) Hematocrit 21.2 % (36.0-47.0) Mean Corpuscular Volume 88 fL (79-100) Mean Corpuscular Hemoglobin 28 pg (25-35) Mean Corpuscular Hemoglobin Concent 31 g/dL (31-37) Red Cell Distribution Width 16.9 % (11.5-14.5) Platelet Count 104 x10^3/uL (140-400) Neutrophils (%) (Auto) 72 % (31-73) Lymphocytes (%) (Auto) 20 % (24-48) Monocytes (%) (Auto) 6 % (0-9) Eosinophils (%) (Auto) 2 % (0-3) Basophils (%) (Auto) 1 % (0-3) Neutrophils # (Auto) 3.5 x10^3uL (1.8-7.7) Lymphocytes # (Auto) 1.0 x10^3/uL (1.0-4.8) Monocytes # (Auto) 0.3 x10^3/uL (0.0-1.1) Eosinophils # (Auto) 0.1 x10^3/uL (0.0-0.7) Basophils # (Auto) 0.0 x10^3/uL (0.0-0.2) Sodium Level 146 mmol/L (136-145) Potassium Level 3.9 mmol/L (3.5-5.1) Chloride Level 116 mmol/L (98-107) Carbon Dioxide Level 14 mmol/L (21-32) Anion Gap 16 (6-14) Blood Urea Nitrogen 83 mg/dL (7-20) Creatinine 4.8 mg/dL (0.6-1.0) Estimated GFR (Cockcroft-Gault) 9.0 Glucose Level 76 mg/dL (70-99) Calcium Level 7.2 mg/dL (8.5-10.1) Phosphorus Level 6.5 mg/dL (2.6-4.7) Magnesium Level 1.4 mg/dL (1.8-2.4) Iron Level 52 ug/dL (50-170) Total Iron Binding Capacity 147 ug/dL (250-450) Iron Saturation 35 % (15-34) Albumin 3.0 g/dL (3.4-5.0) Vitamin B12 Level 611 pg/mL (247-911) Serum Folate > 24.00 ng/ml (3.2-20.0) RUTH MONTANO MD May 04, 2017 10:02
[2017-05-04] MEDS ORDERED: HEPARIN for IV BOLUS 10,000 UNIT/10 ML VIAL. ONE (10:23)
[2017-05-04] MEDS ORDERED: LIDOCAINE 1% / SOD BICARB 8.4% 20 ML VIAL. IJ ONE ×2 (10:23→11:00)
--- NOTE | 2017-05-04 10:46 | PDOC ---
PULMONARY PROGRESS NOTES Subjective no soa Vitals Vital Signs Date Time Temp Pulse Resp B/P (MAP) Pulse Ox O2 Delivery O2 Flow Rate FiO2 05/04/17 08:15 Room Air 05/04/17 07:30 97.7 69 18 126/71 (89) 97 97.7 General: Alert, No acute distress Lungs: Clear Cardiovascular: S1, S2 Abdomen: Soft Neuro Exam: Alert Extremities: Other (trace edema) Skin: Warm Labs Laboratory Tests Test 05/02/17 23:20 05/03/17 00:05 05/03/17 00:56 05/03/17 02:10 White Blood Count 8.2 x10^3/uL (4.0-11.0) Red Blood Count 2.82 x10^6/uL (3.50-5.40) Hemoglobin 7.7 g/dL (12.0-15.5) Hematocrit 25.5 % (36.0-47.0) Mean Corpuscular Volume 90 fL (79-100) Mean Corpuscular Hemoglobin 27 pg (25-35) Mean Corpuscular Hemoglobin Concent 30 g/dL (31-37) Red Cell Distribution Width 17.6 % (11.5-14.5) Platelet Count 137 x10^3/uL (140-400) Neutrophils (%) (Auto) 78 % (31-73) Lymphocytes (%) (Auto) 16 % (24-48) Monocytes (%) (Auto) 5 % (0-9) Eosinophils (%) (Auto) 1 % (0-3) Basophils (%) (Auto) 1 % (0-3) Neutrophils # (Auto) 6.4 x10^3uL (1.8-7.7) Lymphocytes # (Auto) 1.3 x10^3/uL (1.0-4.8) Monocytes # (Auto) 0.4 x10^3/uL (0.0-1.1) Eosinophils # (Auto) 0.1 x10^3/uL (0.0-0.7) Basophils # (Auto) 0.0 x10^3/uL (0.0-0.2) Sodium Level 143 mmol/L (136-145) Potassium Level 4.8 mmol/L (3.5-5.1) Chloride Level 112 mmol/L (98-107) Carbon Dioxide Level 9 mmol/L (21-32) Anion Gap 22 (6-14) Blood Urea Nitrogen 92 mg/dL (7-20) Creatinine 5.3 mg/dL (0.6-1.0) Estimated GFR (Cockcroft-Gault) 8.0 BUN/Creatinine Ratio 17 (6-20) Glucose Level 102 mg/dL (70-99) Lactic Acid Level 0.9 mmol/L (0.4-2.0) Calcium Level 7.8 mg/dL (8.5-10.1) Total Bilirubin 0.3 mg/dL (0.2-1.0) Aspartate Amino Transf (AST/SGOT) 88 U/L (15-37) Alanine Aminotransferase (ALT/SGPT) 51 U/L (14-59) Alkaline Phosphatase 83 U/L (46-116) Total Protein 6.2 g/dL (6.4-8.2) Albumin 3.4 g/dL (3.4-5.0) Albumin/Globulin Ratio 1.2 (1.0-1.7) Lipase 168 U/L (73-393) O2 Saturation 95 % (92-99) Arterial Blood pH 7.45 (7.35-7.45) Arterial Blood pCO2 at Patient Temp 27 mmHg (35-46) Arterial Blood pO2 at Patient Temp 110 mmHg (65-108) Arterial Blood HCO3 18 mmol/L (21-28) Arterial Blood Base Excess -5 mmol/L (-3-3) FiO2 21.0 Nasal Screen MRSA (PCR) Negative (Negative) Test 05/03/17 03:30 05/04/17 04:40 White Blood Count 6.3 x10^3/uL (4.0-11.0) 4.9 x10^3/uL (4.0-11.0) Red Blood Count 2.54 x10^6/uL (3.50-5.40) 2.42 x10^6/uL (3.50-5.40) Hemoglobin 7.1 g/dL (12.0-15.5) 6.7 g/dL (12.0-15.5) Hematocrit 22.7 % (36.0-47.0) 21.2 % (36.0-47.0) Mean Corpuscular Volume 90 fL (79-100) 88 fL (79-100) Mean Corpuscular Hemoglobin 28 pg (25-35) 28 pg (25-35) Mean Corpuscular Hemoglobin Concent 31 g/dL (31-37) 31 g/dL (31-37) Red Cell Distribution Width 17.0 % (11.5-14.5) 16.9 % (11.5-14.5) Platelet Count 112 x10^3/uL (140-400) 104 x10^3/uL (140-400) Neutrophils (%) (Auto) 72 % (31-73) 72 % (31-73) Lymphocytes (%) (Auto) 19 % (24-48) 20 % (24-48) Monocytes (%) (Auto) 8 % (0-9) 6 % (0-9) Eosinophils (%) (Auto) 1 % (0-3) 2 % (0-3) Basophils (%) (Auto) 1 % (0-3) 1 % (0-3) Neutrophils # (Auto) 4.5 x10^3uL (1.8-7.7) 3.5 x10^3uL (1.8-7.7) Lymphocytes # (Auto) 1.2 x10^3/uL (1.0-4.8) 1.0 x10^3/uL (1.0-4.8) Monocytes # (Auto) 0.5 x10^3/uL (0.0-1.1) 0.3 x10^3/uL (0.0-1.1) Eosinophils # (Auto) 0.1 x10^3/uL (0.0-0.7) 0.1 x10^3/uL (0.0-0.7) Basophils # (Auto) 0.0 x10^3/uL (0.0-0.2) 0.0 x10^3/uL (0.0-0.2) Reticulocyte Count (auto) 1.3 % (0.5-2.5) Sodium Level 146 mmol/L (136-145) 146 mmol/L (136-145) Potassium Level 4.3 mmol/L (3.5-5.1) 3.9 mmol/L (3.5-5.1) Chloride Level 114 mmol/L (98-107) 116 mmol/L (98-107) Carbon Dioxide Level 12 mmol/L (21-32) 14 mmol/L (21-32) Anion Gap 20 (6-14) 16 (6-14) Blood Urea Nitrogen 93 mg/dL (7-20) 83 mg/dL (7-20) Creatinine 5.1 mg/dL (0.6-1.0) 4.8 mg/dL (0.6-1.0) Estimated GFR (Cockcroft-Gault) 8.4 9.0 Glucose Level 96 mg/dL (70-99) 76 mg/dL (70-99) Lactic Acid Level 1.1 mmol/L (0.4-2.0) Calcium Level 7.8 mg/dL (8.5-10.1) 7.2 mg/dL (8.5-10.1) Ferritin 842 ng/mL (8-252) Phosphorus Level 6.5 mg/dL (2.6-4.7) Magnesium Level 1.4 mg/dL (1.8-2.4) Iron Level 52 ug/dL (50-170) Total Iron Binding Capacity 147 ug/dL (250-450) Iron Saturation 35 % (15-34) Albumin 3.0 g/dL (3.4-5.0) Vitamin B12 Level 611 pg/mL (247-911) Serum Folate > 24.00 ng/ml (3.2-20.0) Laboratory Tests Test 05/04/17 04:40 White Blood Count 4.9 x10^3/uL (4.0-11.0) Red Blood Count 2.42 x10^6/uL (3.50-5.40) Hemoglobin 6.7 g/dL (12.0-15.5) Hematocrit 21.2 % (36.0-47.0) Mean Corpuscular Volume 88 fL (79-100) Mean Corpuscular Hemoglobin 28 pg (25-35) Mean Corpuscular Hemoglobin Concent 31 g/dL (31-37) Red Cell Distribution Width 16.9 % (11.5-14.5) Platelet Count 104 x10^3/uL (140-400) Neutrophils (%) (Auto) 72 % (31-73) Lymphocytes (%) (Auto) 20 % (24-48) Monocytes (%) (Auto) 6 % (0-9) Eosinophils (%) (Auto) 2 % (0-3) Basophils (%) (Auto) 1 % (0-3) Neutrophils # (Auto) 3.5 x10^3uL (1.8-7.7) Lymphocytes # (Auto) 1.0 x10^3/uL (1.0-4.8) Monocytes # (Auto) 0.3 x10^3/uL (0.0-1.1) Eosinophils # (Auto) 0.1 x10^3/uL (0.0-0.7) Basophils # (Auto) 0.0 x10^3/uL (0.0-0.2) Sodium Level 146 mmol/L (136-145) Potassium Level 3.9 mmol/L (3.5-5.1) Chloride Level 116 mmol/L (98-107) Carbon Dioxide Level 14 mmol/L (21-32) Anion Gap 16 (6-14) Blood Urea Nitrogen 83 mg/dL (7-20) Creatinine 4.8 mg/dL (0.6-1.0) Estimated GFR (Cockcroft-Gault) 9.0 Glucose Level 76 mg/dL (70-99) Calcium Level 7.2 mg/dL (8.5-10.1) Phosphorus Level 6.5 mg/dL (2.6-4.7) Magnesium Level 1.4 mg/dL (1.8-2.4) Iron Level 52 ug/dL (50-170) Total Iron Binding Capacity 147 ug/dL (250-450) Iron Saturation 35 % (15-34) Albumin 3.0 g/dL (3.4-5.0) Vitamin B12 Level 611 pg/mL (247-911) Serum Folate > 24.00 ng/ml (3.2-20.0) Medications Active Scripts Medications Dose Route/Sig Max Daily Dose Days Date Category Vitamin D2 (Ergocalciferol (Vitamin D2)) 50,000 Unit Capsule 50,000 Unit PO WEEKLY 12/07/16 Rx Folbic Tablet (Cyanocobalamin/Fa/Pyridoxine) 1 Each Tablet 1 Tab PO DAILY 12/07/16 Rx Calcitriol 0.25 Mcg Capsule 0.25 Mcg PO DAILY 12/07/16 Rx Flovent 50MCG Diskus (Fluticasone Propionate) 50 Mcg Disk.w.dev 50 Mcg IH BID 09/04/13 Reported Imodium A-D (Loperamide Hcl) 1 Mg/7.5 Ml Liquid 2 Mg PO DAILY08 09/04/13 Reported Norvasc (Amlodipine Besylate) 10 Mg Tablet 10 Mg PO DAILY08 09/04/13 Reported Impression . 1. Abnormal arterial blood gases secondary to acute metabolic acidosis with respiratory compensation. 2. Increased anion gap metabolic acidosis secondary to acute kidney injury, most likely from dehydration. Her lactic acid is normal. 3. History of asthma as a child. She did outgrow it, but then in last few months her asthma has been under suboptimal control. She would benefit from maintenance steroid inhaler and in hospital we will provide her Pulmicort nebulizer treatment. 4. Clear chest x-ray. 5. Acute renal failure, suspect caused by dehydration. I would recommend aggressive hydration. 6. Small-bowel obstruction. Being followed by Surgery. Plan . 1. From pulmonary standpoint, her breathing seems to be stable. on nebulizer treatments with Pulmicort and at discharge I would place her on Flovent. 2. Aggressive volume resuscitation. 3. Monitor renal function. 4. Monitor hemoglobin closely, could be anemia of chronic renal disease. 5. Follow Renal and Surgery recommendations. 6. Follow anion gap. 7. Continue with bicarbonate. 8. Discussed with RN. NIDHI CERVANTES MD May 04, 2017 10:46
--- NOTE | 2017-05-04 11:23 | PDOC ---
BRIEF OPERATIVE NOTE Pre-Op Diagnosis ARF Post-Op Diagnosis same Procedure Performed Temp HD Catheter Surgeon Francisca Anesthesia Type: Local Findings Excellent manual flows Complications No immediate NIMCO PINEDA MD May 04, 2017 11:23
--- NOTE | 2017-05-04 11:33 | PDOC ---
PROGRESS NOTES Subjective Subjective c/c - f/u of Small-bowel obstruction Objective Objective Vital Signs Date Time Temp Pulse Resp B/P (MAP) Pulse Ox O2 Delivery O2 Flow Rate FiO2 05/04/17 10:30 97.7 67 18 126/64 (84) 97 Room Air 97.7 Intake and Output 05/05/17 06:59 # Voids 1 Physical Exam Heart: Normal S1, Normal S2 General: Alert, Oriented X3 Lungs: Clear to auscultation Assessment Assessment Problems Medical Problems: (1) Anemia Status: Acute (2) Renal failure Status: Acute IMPRESSION AND PLAN: 1. Small-bowel obstruction. Appreciate surgical consultation and management. CT scan does not reveal any evidence of recurrent colon cancer. Continue management of obstruction by surgery. CEA pending. 2. Anemia due to CKD. She has history of B12 deficiency. B12 levels are now normal. Agree to monitor Hb and transfuse as needed. 3. Thrombocytopenia. Reactive, B12 is normal. 4. Colon cancer in the past per pt. I obtained pathology records from [facility] since 1999 and there is no evidence of cancer. She mentions that the surgery was done at [facility] for cancer. I will also check a CEA level. Comment Review of Relevant I have reviewed the following items yoel (where applicable) has been applied. Labs Laboratory Tests Test 05/02/17 23:20 05/03/17 00:05 05/03/17 00:56 05/03/17 02:10 White Blood Count 8.2 x10^3/uL (4.0-11.0) Red Blood Count 2.82 x10^6/uL (3.50-5.40) Hemoglobin 7.7 g/dL (12.0-15.5) Hematocrit 25.5 % (36.0-47.0) Mean Corpuscular Volume 90 fL (79-100) Mean Corpuscular Hemoglobin 27 pg (25-35) Mean Corpuscular Hemoglobin Concent 30 g/dL (31-37) Red Cell Distribution Width 17.6 % (11.5-14.5) Platelet Count 137 x10^3/uL (140-400) Neutrophils (%) (Auto) 78 % (31-73) Lymphocytes (%) (Auto) 16 % (24-48) Monocytes (%) (Auto) 5 % (0-9) Eosinophils (%) (Auto) 1 % (0-3) Basophils (%) (Auto) 1 % (0-3) Neutrophils # (Auto) 6.4 x10^3uL (1.8-7.7) Lymphocytes # (Auto) 1.3 x10^3/uL (1.0-4.8) Monocytes # (Auto) 0.4 x10^3/uL (0.0-1.1) Eosinophils # (Auto) 0.1 x10^3/uL (0.0-0.7) Basophils # (Auto) 0.0 x10^3/uL (0.0-0.2) Sodium Level 143 mmol/L (136-145) Potassium Level 4.8 mmol/L (3.5-5.1) Chloride Level 112 mmol/L (98-107) Carbon Dioxide Level 9 mmol/L (21-32) Anion Gap 22 (6-14) Blood Urea Nitrogen 92 mg/dL (7-20) Creatinine 5.3 mg/dL (0.6-1.0) Estimated GFR (Cockcroft-Gault) 8.0 BUN/Creatinine Ratio 17 (6-20) Glucose Level 102 mg/dL (70-99) Lactic Acid Level 0.9 mmol/L (0.4-2.0) Calcium Level 7.8 mg/dL (8.5-10.1) Total Bilirubin 0.3 mg/dL (0.2-1.0) Aspartate Amino Transf (AST/SGOT) 88 U/L (15-37) Alanine Aminotransferase (ALT/SGPT) 51 U/L (14-59) Alkaline Phosphatase 83 U/L (46-116) Total Protein 6.2 g/dL (6.4-8.2) Albumin 3.4 g/dL (3.4-5.0) Albumin/Globulin Ratio 1.2 (1.0-1.7) Lipase 168 U/L (73-393) O2 Saturation 95 % (92-99) Arterial Blood pH 7.45 (7.35-7.45) Arterial Blood pCO2 at Patient Temp 27 mmHg (35-46) Arterial Blood pO2 at Patient Temp 110 mmHg (65-108) Arterial Blood HCO3 18 mmol/L (21-28) Arterial Blood Base Excess -5 mmol/L (-3-3) FiO2 21.0 Nasal Screen MRSA (PCR) Negative (Negative) Test 05/03/17 03:30 05/04/17 04:40 White Blood Count 6.3 x10^3/uL (4.0-11.0) 4.9 x10^3/uL (4.0-11.0) Red Blood Count 2.54 x10^6/uL (3.50-5.40) 2.42 x10^6/uL (3.50-5.40) Hemoglobin 7.1 g/dL (12.0-15.5) 6.7 g/dL (12.0-15.5) Hematocrit 22.7 % (36.0-47.0) 21.2 % (36.0-47.0) Mean Corpuscular Volume 90 fL (79-100) 88 fL (79-100) Mean Corpuscular Hemoglobin 28 pg (25-35) 28 pg (25-35) Mean Corpuscular Hemoglobin Concent 31 g/dL (31-37) 31 g/dL (31-37) Red Cell Distribution Width 17.0 % (11.5-14.5) 16.9 % (11.5-14.5) Platelet Count 112 x10^3/uL (140-400) 104 x10^3/uL (140-400) Neutrophils (%) (Auto) 72 % (31-73) 72 % (31-73) Lymphocytes (%) (Auto) 19 % (24-48) 20 % (24-48) Monocytes (%) (Auto) 8 % (0-9) 6 % (0-9) Eosinophils (%) (Auto) 1 % (0-3) 2 % (0-3) Basophils (%) (Auto) 1 % (0-3) 1 % (0-3) Neutrophils # (Auto) 4.5 x10^3uL (1.8-7.7) 3.5 x10^3uL (1.8-7.7) Lymphocytes # (Auto) 1.2 x10^3/uL (1.0-4.8) 1.0 x10^3/uL (1.0-4.8) Monocytes # (Auto) 0.5 x10^3/uL (0.0-1.1) 0.3 x10^3/uL (0.0-1.1) Eosinophils # (Auto) 0.1 x10^3/uL (0.0-0.7) 0.1 x10^3/uL (0.0-0.7) Basophils # (Auto) 0.0 x10^3/uL (0.0-0.2) 0.0 x10^3/uL (0.0-0.2) Reticulocyte Count (auto) 1.3 % (0.5-2.5) Sodium Level 146 mmol/L (136-145) 146 mmol/L (136-145) Potassium Level 4.3 mmol/L (3.5-5.1) 3.9 mmol/L (3.5-5.1) Chloride Level 114 mmol/L (98-107) 116 mmol/L (98-107) Carbon Dioxide Level 12 mmol/L (21-32) 14 mmol/L (21-32) Anion Gap 20 (6-14) 16 (6-14) Blood Urea Nitrogen 93 mg/dL (7-20) 83 mg/dL (7-20) Creatinine 5.1 mg/dL (0.6-1.0) 4.8 mg/dL (0.6-1.0) Estimated GFR (Cockcroft-Gault) 8.4 9.0 Glucose Level 96 mg/dL (70-99) 76 mg/dL (70-99) Lactic Acid Level 1.1 mmol/L (0.4-2.0) Calcium Level 7.8 mg/dL (8.5-10.1) 7.2 mg/dL (8.5-10.1) Ferritin 842 ng/mL (8-252) Phosphorus Level 6.5 mg/dL (2.6-4.7) Magnesium Level 1.4 mg/dL (1.8-2.4) Iron Level 52 ug/dL (50-170) Total Iron Binding Capacity 147 ug/dL (250-450) Iron Saturation 35 % (15-34) Albumin 3.0 g/dL (3.4-5.0) Vitamin B12 Level 611 pg/mL (247-911) Serum Folate > 24.00 ng/ml (3.2-20.0) Laboratory Tests Test 05/04/17 04:40 White Blood Count 4.9 x10^3/uL (4.0-11.0) Red Blood Count 2.42 x10^6/uL (3.50-5.40) Hemoglobin 6.7 g/dL (12.0-15.5) Hematocrit 21.2 % (36.0-47.0) Mean Corpuscular Volume 88 fL (79-100) Mean Corpuscular Hemoglobin 28 pg (25-35) Mean Corpuscular Hemoglobin Concent 31 g/dL (31-37) Red Cell Distribution Width 16.9 % (11.5-14.5) Platelet Count 104 x10^3/uL (140-400) Neutrophils (%) (Auto) 72 % (31-73) Lymphocytes (%) (Auto) 20 % (24-48) Monocytes (%) (Auto) 6 % (0-9) Eosinophils (%) (Auto) 2 % (0-3) Basophils (%) (Auto) 1 % (0-3) Neutrophils # (Auto) 3.5 x10^3uL (1.8-7.7) Lymphocytes # (Auto) 1.0 x10^3/uL (1.0-4.8) Monocytes # (Auto) 0.3 x10^3/uL (0.0-1.1) Eosinophils # (Auto) 0.1 x10^3/uL (0.0-0.7) Basophils # (Auto) 0.0 x10^3/uL (0.0-0.2) Sodium Level 146 mmol/L (136-145) Potassium Level 3.9 mmol/L (3.5-5.1) Chloride Level 116 mmol/L (98-107) Carbon Dioxide Level 14 mmol/L (21-32) Anion Gap 16 (6-14) Blood Urea Nitrogen 83 mg/dL (7-20) Creatinine 4.8 mg/dL (0.6-1.0) Estimated GFR (Cockcroft-Gault) 9.0 Glucose Level 76 mg/dL (70-99) Calcium Level 7.2 mg/dL (8.5-10.1) Phosphorus Level 6.5 mg/dL (2.6-4.7) Magnesium Level 1.4 mg/dL (1.8-2.4) Iron Level 52 ug/dL (50-170) Total Iron Binding Capacity 147 ug/dL (250-450) Iron Saturation 35 % (15-34) Albumin 3.0 g/dL (3.4-5.0) Vitamin B12 Level 611 pg/mL (247-911) Serum Folate > 24.00 ng/ml (3.2-20.0) Medications Current Medications Ondansetron HCl (Zofran) 4 mg 1X ONCE IV Last administered on 05/02/17 23:27 ; Start 05/02/17 at 23:15; Stop 05/02/17 at 23:16; Status DC Multi-Ingredient Mouthwash/Gargle (Gi Cocktail Single Dose) 15 ml 1X ONCE SWSW Last administered on 05/02/17 23:27; Start 05/02/17 at 23:15; Stop 05/02/17 at 23:16; Status DC Sodium Bicarbonate 100 meq 1X ONCE IV Last administered on 05/03/17 01:17; Start 05/03/17 at 01:15; Stop 05/03/17 at 01:16; Status DC Ondansetron HCl (Zofran) 4 mg PRN Q8HRS PRN IV NAUSEA/VOMITING; Start 05/03/17 at 01:15; Stop 05/04/17 at 01:14; Status DC Morphine Sulfate 2 mg PRN Q2HR PRN IV PAIN; Start 05/03/17 at 01:15; Stop 05/04 at 01:14; Status DC Sodium Chloride 1,000 ml @ 125 mls/hr 1X ONCE IV Last administered on 04:45; Start 05/03/17 at 04:30; Stop 05/04/17 at 10:02; Status DC Magnesium Sulfate/ Dextrose 50 ml @ 25 mls/hr PRN DAILY PRN IV for Mag < 1.7 on am labs; Start 05/03/17 at 09:15 Sodium Bicarbonate 75 meq/Sodium Chloride 1,075 ml @ 75 mls/hr [id number] IV Last administered on 05/03/17 17:17; Start 05/03/17 at 10:00; Stop 05/03/17 at 21:50; Status DC Budesonide (Pulmicort) 0.5 mg RTBID NEB ; Start 05/03/17 at 12:00 Sodium Chloride 1,000 ml @ 250 mls/hr 1X ONCE IV Last administered on t 13:17; Start 05/03/17 at 12:30; Stop 05/03/17 at 16:44; Status DC Amlodipine Besylate (Norvasc) 10 mg DAILY08 PO ; Start 05/03/17 at 15:00 Calcitriol (Rocaltrol) 0.25 mcg DAILY PO ; Start 05/03/17 at 15:00 Vitamin B Complex (Folbic Tablet) 1 tab DAILY PO ; Start 05/03/17 at 15:00 Ergocalciferol (Vitamin D2) 50,000 unit WEEKLY PO ; Start 05/10/17 at 09:00 Non-Formulary Medication 50 mcg BID IH ; Start 05/03/17 at 21:00; Stop 05/03/17 at 21:00; Status DC Loperamide HCl (Imodium) 2 mg DAILY08 PO ; Start 05/03/17 at 15:00 Sodium Chloride 1,000 ml @ 100 mls/hr Q10H IV Last administered on 05/04/17 06:01; Start 05/03/17 at 21:30; Stop 05/04/17 at 07:04; Status DC Sodium Chloride 1,000 ml @ 100 mls/hr Q10H IV Last administered on 05/04/17 07:10; Start 05/04/17 at 07:30; Stop 05/04/17 at 10:02; Status DC Sodium Bicarbonate 75 meq/Potassium Acetate 20 meq/ Dextrose 1,085 ml @ 100 mls /hr [id number] IV ; Start 05/04/17 at 10:00 Darbepoetin Jono (Aranesp) 60 mcg WEEKLYHS SQ ; Start 05/04/17 at 21:00 Lidocaine/Sodium Bicarbonate (Buffered Lidocaine 1%) 20 ml STK-MED ONCE IJ ; Start 05/04/17 at 10:23; Stop 05/04/17 at 10:24; Status DC Heparin Sodium (Porcine) (Heparin Sodium) 10,000 unit STK-MED ONCE .ROUTE ; Start 05/04/17 at 10:23; Stop 05/04/17 at 10:24; Status DC Heparin Sodium/ Sodium Chloride 500 ml @ As Directed STK-MED ONCE .ROUTE ; Start 05/04/17 at 10:23; Stop 05/04/17 at 10:24; Status DC Lidocaine/Sodium Bicarbonate (Buffered Lidocaine 1%) 20 ml 1X ONCE IJ Last administered on 05/04/17 11:22; Start 05/04/17 at 11:00; Stop 05/04/17 at 11:02 ; Status DC Heparin Sodium/ Sodium Chloride 1,000 unit 1X ONCE IV Last administered on 11:23; Start 05/04/17 at 11:00; Stop 05/04/17 at 11:02; Status DC Heparin Sodium (Porcine) (Heparin Sodium) 2,600 unit 1X ONCE INT CAT Last administered on 05/04/17 11:22; Start 05/04/17 at 11:00; Stop 05/04/17 at 11:02 ; Status DC Active Scripts Active Vitamin D2 (Ergocalciferol (Vitamin D2)) 50,000 Unit Capsule 50,000 Unit PO WEEKLY Folbic Tablet (Cyanocobalamin/Fa/Pyridoxine) 1 Each Tablet 1 Tab PO DAILY Calcitriol 0.25 Mcg Capsule 0.25 Mcg PO DAILY Reported Flovent 50MCG Diskus (Fluticasone Propionate) 50 Mcg Disk.w.dev 50 Mcg IH BID Imodium A-D (Loperamide Hcl) 1 Mg/7.5 Ml Liquid 2 Mg PO DAILY08 Norvasc (Amlodipine Besylate) 10 Mg Tablet 10 Mg PO DAILY08 Vitals/I & O Vital Sign - Last 24 Hours 05/03/17 05/03/17 05/03/17 05/03/17 12:00 13:00 14:46 19:00 Temp 97.7 96.4 97.7 96.4 Pulse 63 71 Resp 16 18 B/P (MAP) 119/70 (86) 117/63 (81) Pulse Ox 100 100 O2 Delivery Room Air Room Air Room Air Room Air 05/03/17 05/03/17 05/04/17 05/04/17 20:00 22:46 03:00 07:30 Temp 97.9 97.5 97.7 97.9 97.5 97.7 Pulse 68 67 69 Resp 18 18 18 B/P (MAP) 107/59 (75) 110/66 (81) 126/71 (89) Pulse Ox 98 98 97 O2 Delivery Room Air Room Air Room Air Room Air 05/04/17 05/04/17 08:15 10:30 Temp 97.7 97.7 Pulse 67 Resp 18 B/P (MAP) 126/64 (84) Pulse Ox 97 O2 Delivery Room Air Room Air ALIN MAXWELL MD May 04, 2017 11:33
--- NOTE | 2017-05-04 11:39 | RAD ---
Procedure: Temporary hemodialysis catheter placement under fluoroscopy Clinical Indication: 67-year-old requiring hemodialysis Sedation: Local anesthesia only Antibiotics: None Fluoro Time: 0.1 minutes. Images: 1 Contrast: None Sterility: All elements of maximal sterile barrier technique including the use of a cap, mask, sterile gown, sterile gloves, large sterile sheet, appropriate hand hygiene, and 2% chlorhexidine for cutaneous antisepsis (or acceptable alternative antiseptic per current guidelines) were followed for this procedure. Consent: The procedure was explained in its entirety to the patient or the patients designated specialty sales representative by a member of the treatment team, including a discussion of the risks, benefits and commonly accepted alternatives to the procedure, as well as the expected consequences of no therapy whatsoever. Discussion of the risks included, but was not limited to, those that are most frequent and those that are rare but possibly severe or life-threatening, as well as the possibility of unforeseen complications. Technique and Findings: Following informed consent, the patient was prepped and draped in the usual sterile fashion. Ultrasound interrogation of the right neck revealed patency and compressibility of the right internal jugular vein. A 21-gauge micropuncture needle was used to gain access to this vein after 1% Lidocaine was used to achieve local anesthesia. A hardcopy ultrasound image was recorded. The needle was exchanged over a wire for serial dilators followed by a 20 cm trialysis temporary hemodialysis catheter which was deployed under fluoroscopic guidance such that the distal tip resided in the mid right atrium. The catheter flow rates were assessed manually and found to be excellent. The catheter was then flushed, packed with Heparin, capped, and sutured to the skin. Complications: No immediate Impression: 1. Ultrasound and fluoroscopic guided placement of a temporary hemodialysis catheter which exhibits excellent manual flow rates as described.
[2017-05-04] MEDS: SODIUM BICARBONATE IV SCH (11:47)
[2017-05-04] MEDS: DEXTROSE 5% IV SCH (11:47)
[2017-05-04] MEDS: POTASSIUM ACETATE IV SCH (11:47)
--- NOTE | 2017-05-04 12:45 | PDOC ---
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 prior B12 def,. dehydration, w/ nausea and vomiting. Small-bowel obstruction. surgical following Prior Hx of colon cancer. Thrombocytopenia. Reactive History of Present Illness History of Present Illness feels stable, weak today to have HD line placed, HD today per renal acidosis, SANGITA on CKD Vitals Vitals Vital Signs Date Time Temp Pulse Resp B/P (MAP) Pulse Ox O2 Delivery O2 Flow Rate FiO2 05/04/17 10:30 97.7 67 18 126/64 (84) 97 Room Air 97.7 Physical Exam General: Alert, Oriented X3 Heart: Normal S1, Normal S2 Lungs: Clear Abdomen: Soft, Other (protuberent 2/2 diastasis, well healed midline scar from xyphoid to pubis, minimally TTP without mass) Skin: No rashes Labs LABS Laboratory Tests Test 05/04/17 04:40 White Blood Count 4.9 x10^3/uL (4.0-11.0) Red Blood Count 2.42 x10^6/uL (3.50-5.40) Hemoglobin 6.7 g/dL (12.0-15.5) Hematocrit 21.2 % (36.0-47.0) Mean Corpuscular Volume 88 fL (79-100) Mean Corpuscular Hemoglobin 28 pg (25-35) Mean Corpuscular Hemoglobin Concent 31 g/dL (31-37) Red Cell Distribution Width 16.9 % (11.5-14.5) Platelet Count 104 x10^3/uL (140-400) Neutrophils (%) (Auto) 72 % (31-73) Lymphocytes (%) (Auto) 20 % (24-48) Monocytes (%) (Auto) 6 % (0-9) Eosinophils (%) (Auto) 2 % (0-3) Basophils (%) (Auto) 1 % (0-3) Neutrophils # (Auto) 3.5 x10^3uL (1.8-7.7) Lymphocytes # (Auto) 1.0 x10^3/uL (1.0-4.8) Monocytes # (Auto) 0.3 x10^3/uL (0.0-1.1) Eosinophils # (Auto) 0.1 x10^3/uL (0.0-0.7) Basophils # (Auto) 0.0 x10^3/uL (0.0-0.2) Sodium Level 146 mmol/L (136-145) Potassium Level 3.9 mmol/L (3.5-5.1) Chloride Level 116 mmol/L (98-107) Carbon Dioxide Level 14 mmol/L (21-32) Anion Gap 16 (6-14) Blood Urea Nitrogen 83 mg/dL (7-20) Creatinine 4.8 mg/dL (0.6-1.0) Estimated GFR (Cockcroft-Gault) 9.0 Glucose Level 76 mg/dL (70-99) Calcium Level 7.2 mg/dL (8.5-10.1) Phosphorus Level 6.5 mg/dL (2.6-4.7) Magnesium Level 1.4 mg/dL (1.8-2.4) Iron Level 52 ug/dL (50-170) Total Iron Binding Capacity 147 ug/dL (250-450) Iron Saturation 35 % (15-34) Albumin 3.0 g/dL (3.4-5.0) Vitamin B12 Level 611 pg/mL (247-911) Serum Folate > 24.00 ng/ml (3.2-20.0) Assessment and Plan Assessmemt and Plan Problems Medical Problems: (1) Anemia Status: Acute (2) Renal failure Status: Acute Problems: Comment Review of Relevant I have reviewed the following items yoel (where applicable) has been applied. Labs Laboratory Tests Test 05/02/17 23:20 05/03/17 00:05 05/03/17 00:56 05/03/17 02:10 White Blood Count 8.2 x10^3/uL (4.0-11.0) Red Blood Count 2.82 x10^6/uL (3.50-5.40) Hemoglobin 7.7 g/dL (12.0-15.5) Hematocrit 25.5 % (36.0-47.0) Mean Corpuscular Volume 90 fL (79-100) Mean Corpuscular Hemoglobin 27 pg (25-35) Mean Corpuscular Hemoglobin Concent 30 g/dL (31-37) Red Cell Distribution Width 17.6 % (11.5-14.5) Platelet Count 137 x10^3/uL (140-400) Neutrophils (%) (Auto) 78 % (31-73) Lymphocytes (%) (Auto) 16 % (24-48) Monocytes (%) (Auto) 5 % (0-9) Eosinophils (%) (Auto) 1 % (0-3) Basophils (%) (Auto) 1 % (0-3) Neutrophils # (Auto) 6.4 x10^3uL (1.8-7.7) Lymphocytes # (Auto) 1.3 x10^3/uL (1.0-4.8) Monocytes # (Auto) 0.4 x10^3/uL (0.0-1.1) Eosinophils # (Auto) 0.1 x10^3/uL (0.0-0.7) Basophils # (Auto) 0.0 x10^3/uL (0.0-0.2) Sodium Level 143 mmol/L (136-145) Potassium Level 4.8 mmol/L (3.5-5.1) Chloride Level 112 mmol/L (98-107) Carbon Dioxide Level 9 mmol/L (21-32) Anion Gap 22 (6-14) Blood Urea Nitrogen 92 mg/dL (7-20) Creatinine 5.3 mg/dL (0.6-1.0) Estimated GFR (Cockcroft-Gault) 8.0 BUN/Creatinine Ratio 17 (6-20) Glucose Level 102 mg/dL (70-99) Lactic Acid Level 0.9 mmol/L (0.4-2.0) Calcium Level 7.8 mg/dL (8.5-10.1) Total Bilirubin 0.3 mg/dL (0.2-1.0) Aspartate Amino Transf (AST/SGOT) 88 U/L (15-37) Alanine Aminotransferase (ALT/SGPT) 51 U/L (14-59) Alkaline Phosphatase 83 U/L (46-116) Total Protein 6.2 g/dL (6.4-8.2) Albumin 3.4 g/dL (3.4-5.0) Albumin/Globulin Ratio 1.2 (1.0-1.7) Lipase 168 U/L (73-393) O2 Saturation 95 % (92-99) Arterial Blood pH 7.45 (7.35-7.45) Arterial Blood pCO2 at Patient Temp 27 mmHg (35-46) Arterial Blood pO2 at Patient Temp 110 mmHg (65-108) Arterial Blood HCO3 18 mmol/L (21-28) Arterial Blood Base Excess -5 mmol/L (-3-3) FiO2 21.0 Nasal Screen MRSA (PCR) Negative (Negative) Test 05/03/17 03:30 05/04/17 04:40 White Blood Count 6.3 x10^3/uL (4.0-11.0) 4.9 x10^3/uL (4.0-11.0) Red Blood Count 2.54 x10^6/uL (3.50-5.40) 2.42 x10^6/uL (3.50-5.40) Hemoglobin 7.1 g/dL (12.0-15.5) 6.7 g/dL (12.0-15.5) Hematocrit 22.7 % (36.0-47.0) 21.2 % (36.0-47.0) Mean Corpuscular Volume 90 fL (79-100) 88 fL (79-100) Mean Corpuscular Hemoglobin 28 pg (25-35) 28 pg (25-35) Mean Corpuscular Hemoglobin Concent 31 g/dL (31-37) 31 g/dL (31-37) Red Cell Distribution Width 17.0 % (11.5-14.5) 16.9 % (11.5-14.5) Platelet Count 112 x10^3/uL (140-400) 104 x10^3/uL (140-400) Neutrophils (%) (Auto) 72 % (31-73) 72 % (31-73) Lymphocytes (%) (Auto) 19 % (24-48) 20 % (24-48) Monocytes (%) (Auto) 8 % (0-9) 6 % (0-9) Eosinophils (%) (Auto) 1 % (0-3) 2 % (0-3) Basophils (%) (Auto) 1 % (0-3) 1 % (0-3) Neutrophils # (Auto) 4.5 x10^3uL (1.8-7.7) 3.5 x10^3uL (1.8-7.7) Lymphocytes # (Auto) 1.2 x10^3/uL (1.0-4.8) 1.0 x10^3/uL (1.0-4.8) Monocytes # (Auto) 0.5 x10^3/uL (0.0-1.1) 0.3 x10^3/uL (0.0-1.1) Eosinophils # (Auto) 0.1 x10^3/uL (0.0-0.7) 0.1 x10^3/uL (0.0-0.7) Basophils # (Auto) 0.0 x10^3/uL (0.0-0.2) 0.0 x10^3/uL (0.0-0.2) Reticulocyte Count (auto) 1.3 % (0.5-2.5) Sodium Level 146 mmol/L (136-145) 146 mmol/L (136-145) Potassium Level 4.3 mmol/L (3.5-5.1) 3.9 mmol/L (3.5-5.1) Chloride Level 114 mmol/L (98-107) 116 mmol/L (98-107) Carbon Dioxide Level 12 mmol/L (21-32) 14 mmol/L (21-32) Anion Gap 20 (6-14) 16 (6-14) Blood Urea Nitrogen 93 mg/dL (7-20) 83 mg/dL (7-20) Creatinine 5.1 mg/dL (0.6-1.0) 4.8 mg/dL (0.6-1.0) Estimated GFR (Cockcroft-Gault) 8.4 9.0 Glucose Level 96 mg/dL (70-99) 76 mg/dL (70-99) Lactic Acid Level 1.1 mmol/L (0.4-2.0) Calcium Level 7.8 mg/dL (8.5-10.1) 7.2 mg/dL (8.5-10.1) Ferritin 842 ng/mL (8-252) Phosphorus Level 6.5 mg/dL (2.6-4.7) Magnesium Level 1.4 mg/dL (1.8-2.4) Iron Level 52 ug/dL (50-170) Total Iron Binding Capacity 147 ug/dL (250-450) Iron Saturation 35 % (15-34) Albumin 3.0 g/dL (3.4-5.0) Vitamin B12 Level 611 pg/mL (247-911) Serum Folate > 24.00 ng/ml (3.2-20.0) Laboratory Tests Test 05/04/17 04:40 White Blood Count 4.9 x10^3/uL (4.0-11.0) Red Blood Count 2.42 x10^6/uL (3.50-5.40) Hemoglobin 6.7 g/dL (12.0-15.5) Hematocrit 21.2 % (36.0-47.0) Mean Corpuscular Volume 88 fL (79-100) Mean Corpuscular Hemoglobin 28 pg (25-35) Mean Corpuscular Hemoglobin Concent 31 g/dL (31-37) Red Cell Distribution Width 16.9 % (11.5-14.5) Platelet Count 104 x10^3/uL (140-400) Neutrophils (%) (Auto) 72 % (31-73) Lymphocytes (%) (Auto) 20 % (24-48) Monocytes (%) (Auto) 6 % (0-9) Eosinophils (%) (Auto) 2 % (0-3) Basophils (%) (Auto) 1 % (0-3) Neutrophils # (Auto) 3.5 x10^3uL (1.8-7.7) Lymphocytes # (Auto) 1.0 x10^3/uL (1.0-4.8) Monocytes # (Auto) 0.3 x10^3/uL (0.0-1.1) Eosinophils # (Auto) 0.1 x10^3/uL (0.0-0.7) Basophils # (Auto) 0.0 x10^3/uL (0.0-0.2) Sodium Level 146 mmol/L (136-145) Potassium Level 3.9 mmol/L (3.5-5.1) Chloride Level 116 mmol/L (98-107) Carbon Dioxide Level 14 mmol/L (21-32) Anion Gap 16 (6-14) Blood Urea Nitrogen 83 mg/dL (7-20) Creatinine 4.8 mg/dL (0.6-1.0) Estimated GFR (Cockcroft-Gault) 9.0 Glucose Level 76 mg/dL (70-99) Calcium Level 7.2 mg/dL (8.5-10.1) Phosphorus Level 6.5 mg/dL (2.6-4.7) Magnesium Level 1.4 mg/dL (1.8-2.4) Iron Level 52 ug/dL (50-170) Total Iron Binding Capacity 147 ug/dL (250-450) Iron Saturation 35 % (15-34) Albumin 3.0 g/dL (3.4-5.0) Vitamin B12 Level 611 pg/mL (247-911) Serum Folate > 24.00 ng/ml (3.2-20.0) Medications Current Medications Ondansetron HCl (Zofran) 4 mg 1X ONCE IV Last administered on 05/02/17 23:27 ; Start 05/02/17 at 23:15; Stop 05/02/17 at 23:16; Status DC Multi-Ingredient Mouthwash/Gargle (Gi Cocktail Single Dose) 15 ml 1X ONCE SWSW Last administered on 05/02/17 23:27; Start 05/02/17 at 23:15; Stop 05/02/17 at 23:16; Status DC Sodium Bicarbonate 100 meq 1X ONCE IV Last administered on 05/03/17 01:17; Start 05/03/17 at 01:15; Stop 05/03/17 at 01:16; Status DC Ondansetron HCl (Zofran) 4 mg PRN Q8HRS PRN IV NAUSEA/VOMITING; Start 05/03/17 at 01:15; Stop 05/04/17 at 01:14; Status DC Morphine Sulfate 2 mg PRN Q2HR PRN IV PAIN; Start 05/03/17 at 01:15; Stop 05/04 at 01:14; Status DC Sodium Chloride 1,000 ml @ 125 mls/hr 1X ONCE IV Last administered on 04:45; Start 05/03/17 at 04:30; Stop 05/04/17 at 10:02; Status DC Magnesium Sulfate/ Dextrose 50 ml @ 25 mls/hr PRN DAILY PRN IV for Mag < 1.7 on am labs; Start 05/03/17 at 09:15 Sodium Bicarbonate 75 meq/Sodium Chloride 1,075 ml @ 75 mls/hr [id number] IV Last administered on 05/03/17 17:17; Start 05/03/17 at 10:00; Stop 05/03/17 at 21:50; Status DC Budesonide (Pulmicort) 0.5 mg RTBID NEB ; Start 05/03/17 at 12:00 Sodium Chloride 1,000 ml @ 250 mls/hr 1X ONCE IV Last administered on t 13:17; Start 05/03/17 at 12:30; Stop 05/03/17 at 16:44; Status DC Amlodipine Besylate (Norvasc) 10 mg DAILY08 PO ; Start 05/03/17 at 15:00 Calcitriol (Rocaltrol) 0.25 mcg DAILY PO ; Start 05/03/17 at 15:00 Vitamin B Complex (Folbic Tablet) 1 tab DAILY PO ; Start 05/03/17 at 15:00 Ergocalciferol (Vitamin D2) 50,000 unit WEEKLY PO ; Start 05/10/17 at 09:00 Non-Formulary Medication 50 mcg BID IH ; Start 05/03/17 at 21:00; Stop 05/03/17 at 21:00; Status DC Loperamide HCl (Imodium) 2 mg DAILY08 PO ; Start 05/03/17 at 15:00 Sodium Chloride 1,000 ml @ 100 mls/hr Q10H IV Last administered on 05/04/17 06:01; Start 05/03/17 at 21:30; Stop 05/04/17 at 07:04; Status DC Sodium Chloride 1,000 ml @ 100 mls/hr Q10H IV Last administered on 05/04/17 07:10; Start 05/04/17 at 07:30; Stop 05/04/17 at 10:02; Status DC Sodium Bicarbonate 75 meq/Potassium Acetate 20 meq/ Dextrose 1,085 ml @ 100 mls /hr [id number] IV Last administered on 05/04/17 11:47; Start 05/04/17 at 10:00 Darbepoetin Jono (Aranesp) 60 mcg WEEKLYHS SQ ; Start 05/04/17 at 21:00 Lidocaine/Sodium Bicarbonate (Buffered Lidocaine 1%) 20 ml STK-MED ONCE IJ ; Start 05/04/17 at 10:23; Stop 05/04/17 at 10:24; Status DC Heparin Sodium (Porcine) (Heparin Sodium) 10,000 unit STK-MED ONCE .ROUTE ; Start 05/04/17 at 10:23; Stop 05/04/17 at 10:24; Status DC Heparin Sodium/ Sodium Chloride 500 ml @ As Directed STK-MED ONCE .ROUTE ; Start 05/04/17 at 10:23; Stop 05/04/17 at 10:24; Status DC Lidocaine/Sodium Bicarbonate (Buffered Lidocaine 1%) 20 ml 1X ONCE IJ Last administered on 05/04/17 11:22; Start 05/04/17 at 11:00; Stop 05/04/17 at 11:02 ; Status DC Heparin Sodium/ Sodium Chloride 1,000 unit 1X ONCE IV Last administered on 11:23; Start 05/04/17 at 11:00; Stop 05/04/17 at 11:02; Status DC Heparin Sodium (Porcine) (Heparin Sodium) 2,600 unit 1X ONCE INT CAT Last administered on 05/04/17 11:22; Start 05/04/17 at 11:00; Stop 05/04/17 at 11:02 ; Status DC Active Scripts Active Vitamin D2 (Ergocalciferol (Vitamin D2)) 50,000 Unit Capsule 50,000 Unit PO WEEKLY Folbic Tablet (Cyanocobalamin/Fa/Pyridoxine) 1 Each Tablet 1 Tab PO DAILY Calcitriol 0.25 Mcg Capsule 0.25 Mcg PO DAILY Reported Flovent 50MCG Diskus (Fluticasone Propionate) 50 Mcg Disk.w.dev 50 Mcg IH BID Imodium A-D (Loperamide Hcl) 1 Mg/7.5 Ml Liquid 2 Mg PO DAILY08 Norvasc (Amlodipine Besylate) 10 Mg Tablet 10 Mg PO DAILY08 Vitals/I & O Vital Sign - Last 24 Hours 05/03/17 05/03/17 05/03/17 05/03/17 13:00 14:46 19:00 20:00 Temp 97.7 96.4 97.7 96.4 Pulse 63 71 Resp 16 18 B/P (MAP) 119/70 (86) 117/63 (81) Pulse Ox 100 100 O2 Delivery Room Air Room Air Room Air Room Air 05/03/17 05/04/17 05/04/17 05/04/17 22:46 03:00 07:30 08:15 Temp 97.9 97.5 97.7 97.9 97.5 97.7 Pulse 68 67 69 Resp 18 18 18 B/P (MAP) 107/59 (75) 110/66 (81) 126/71 (89) Pulse Ox 98 98 97 O2 Delivery Room Air Room Air Room Air Room Air 05/04/17 10:30 Temp 97.7 97.7 Pulse 67 Resp 18 B/P (MAP) 126/64 (84) Pulse Ox 97 O2 Delivery Room Air JONY PRIEST MD May 04, 2017 12:45
--- NOTE | 2017-05-04 13:25 | PDOC ---
SURGICAL PROGRESS NOTE Subjective she is having clear liquids when I evaluated her denies n/v reports some flatus today Vital Signs Vital Signs Date Time Temp Pulse Resp B/P (MAP) Pulse Ox O2 Delivery O2 Flow Rate FiO2 05/04/17 10:30 97.7 67 18 126/64 (84) 97 Room Air 97.7 I&O Intake and Output 05/05/17 07:00 # Voids 1 General: Alert, Oriented X3, Cooperative, No acute distress Abdomen: Soft, No tenderness, Other (ND) Labs Laboratory Tests Test 05/02/17 23:20 05/03/17 00:05 05/03/17 00:56 05/03/17 02:10 White Blood Count 8.2 x10^3/uL (4.0-11.0) Red Blood Count 2.82 x10^6/uL (3.50-5.40) Hemoglobin 7.7 g/dL (12.0-15.5) Hematocrit 25.5 % (36.0-47.0) Mean Corpuscular Volume 90 fL (79-100) Mean Corpuscular Hemoglobin 27 pg (25-35) Mean Corpuscular Hemoglobin Concent 30 g/dL (31-37) Red Cell Distribution Width 17.6 % (11.5-14.5) Platelet Count 137 x10^3/uL (140-400) Neutrophils (%) (Auto) 78 % (31-73) Lymphocytes (%) (Auto) 16 % (24-48) Monocytes (%) (Auto) 5 % (0-9) Eosinophils (%) (Auto) 1 % (0-3) Basophils (%) (Auto) 1 % (0-3) Neutrophils # (Auto) 6.4 x10^3uL (1.8-7.7) Lymphocytes # (Auto) 1.3 x10^3/uL (1.0-4.8) Monocytes # (Auto) 0.4 x10^3/uL (0.0-1.1) Eosinophils # (Auto) 0.1 x10^3/uL (0.0-0.7) Basophils # (Auto) 0.0 x10^3/uL (0.0-0.2) Sodium Level 143 mmol/L (136-145) Potassium Level 4.8 mmol/L (3.5-5.1) Chloride Level 112 mmol/L (98-107) Carbon Dioxide Level 9 mmol/L (21-32) Anion Gap 22 (6-14) Blood Urea Nitrogen 92 mg/dL (7-20) Creatinine 5.3 mg/dL (0.6-1.0) Estimated GFR (Cockcroft-Gault) 8.0 BUN/Creatinine Ratio 17 (6-20) Glucose Level 102 mg/dL (70-99) Lactic Acid Level 0.9 mmol/L (0.4-2.0) Calcium Level 7.8 mg/dL (8.5-10.1) Total Bilirubin 0.3 mg/dL (0.2-1.0) Aspartate Amino Transf (AST/SGOT) 88 U/L (15-37) Alanine Aminotransferase (ALT/SGPT) 51 U/L (14-59) Alkaline Phosphatase 83 U/L (46-116) Total Protein 6.2 g/dL (6.4-8.2) Albumin 3.4 g/dL (3.4-5.0) Albumin/Globulin Ratio 1.2 (1.0-1.7) Lipase 168 U/L (73-393) O2 Saturation 95 % (92-99) Arterial Blood pH 7.45 (7.35-7.45) Arterial Blood pCO2 at Patient Temp 27 mmHg (35-46) Arterial Blood pO2 at Patient Temp 110 mmHg (65-108) Arterial Blood HCO3 18 mmol/L (21-28) Arterial Blood Base Excess -5 mmol/L (-3-3) FiO2 21.0 Nasal Screen MRSA (PCR) Negative (Negative) Test 05/03/17 03:30 05/04/17 04:40 White Blood Count 6.3 x10^3/uL (4.0-11.0) 4.9 x10^3/uL (4.0-11.0) Red Blood Count 2.54 x10^6/uL (3.50-5.40) 2.42 x10^6/uL (3.50-5.40) Hemoglobin 7.1 g/dL (12.0-15.5) 6.7 g/dL (12.0-15.5) Hematocrit 22.7 % (36.0-47.0) 21.2 % (36.0-47.0) Mean Corpuscular Volume 90 fL (79-100) 88 fL (79-100) Mean Corpuscular Hemoglobin 28 pg (25-35) 28 pg (25-35) Mean Corpuscular Hemoglobin Concent 31 g/dL (31-37) 31 g/dL (31-37) Red Cell Distribution Width 17.0 % (11.5-14.5) 16.9 % (11.5-14.5) Platelet Count 112 x10^3/uL (140-400) 104 x10^3/uL (140-400) Neutrophils (%) (Auto) 72 % (31-73) 72 % (31-73) Lymphocytes (%) (Auto) 19 % (24-48) 20 % (24-48) Monocytes (%) (Auto) 8 % (0-9) 6 % (0-9) Eosinophils (%) (Auto) 1 % (0-3) 2 % (0-3) Basophils (%) (Auto) 1 % (0-3) 1 % (0-3) Neutrophils # (Auto) 4.5 x10^3uL (1.8-7.7) 3.5 x10^3uL (1.8-7.7) Lymphocytes # (Auto) 1.2 x10^3/uL (1.0-4.8) 1.0 x10^3/uL (1.0-4.8) Monocytes # (Auto) 0.5 x10^3/uL (0.0-1.1) 0.3 x10^3/uL (0.0-1.1) Eosinophils # (Auto) 0.1 x10^3/uL (0.0-0.7) 0.1 x10^3/uL (0.0-0.7) Basophils # (Auto) 0.0 x10^3/uL (0.0-0.2) 0.0 x10^3/uL (0.0-0.2) Reticulocyte Count (auto) 1.3 % (0.5-2.5) Sodium Level 146 mmol/L (136-145) 146 mmol/L (136-145) Potassium Level 4.3 mmol/L (3.5-5.1) 3.9 mmol/L (3.5-5.1) Chloride Level 114 mmol/L (98-107) 116 mmol/L (98-107) Carbon Dioxide Level 12 mmol/L (21-32) 14 mmol/L (21-32) Anion Gap 20 (6-14) 16 (6-14) Blood Urea Nitrogen 93 mg/dL (7-20) 83 mg/dL (7-20) Creatinine 5.1 mg/dL (0.6-1.0) 4.8 mg/dL (0.6-1.0) Estimated GFR (Cockcroft-Gault) 8.4 9.0 Glucose Level 96 mg/dL (70-99) 76 mg/dL (70-99) Lactic Acid Level 1.1 mmol/L (0.4-2.0) Calcium Level 7.8 mg/dL (8.5-10.1) 7.2 mg/dL (8.5-10.1) Ferritin 842 ng/mL (8-252) Phosphorus Level 6.5 mg/dL (2.6-4.7) Magnesium Level 1.4 mg/dL (1.8-2.4) Iron Level 52 ug/dL (50-170) Total Iron Binding Capacity 147 ug/dL (250-450) Iron Saturation 35 % (15-34) Albumin 3.0 g/dL (3.4-5.0) Vitamin B12 Level 611 pg/mL (247-911) Serum Folate > 24.00 ng/ml (3.2-20.0) Laboratory Tests Test 05/04/17 04:40 White Blood Count 4.9 x10^3/uL (4.0-11.0) Red Blood Count 2.42 x10^6/uL (3.50-5.40) Hemoglobin 6.7 g/dL (12.0-15.5) Hematocrit 21.2 % (36.0-47.0) Mean Corpuscular Volume 88 fL (79-100) Mean Corpuscular Hemoglobin 28 pg (25-35) Mean Corpuscular Hemoglobin Concent 31 g/dL (31-37) Red Cell Distribution Width 16.9 % (11.5-14.5) Platelet Count 104 x10^3/uL (140-400) Neutrophils (%) (Auto) 72 % (31-73) Lymphocytes (%) (Auto) 20 % (24-48) Monocytes (%) (Auto) 6 % (0-9) Eosinophils (%) (Auto) 2 % (0-3) Basophils (%) (Auto) 1 % (0-3) Neutrophils # (Auto) 3.5 x10^3uL (1.8-7.7) Lymphocytes # (Auto) 1.0 x10^3/uL (1.0-4.8) Monocytes # (Auto) 0.3 x10^3/uL (0.0-1.1) Eosinophils # (Auto) 0.1 x10^3/uL (0.0-0.7) Basophils # (Auto) 0.0 x10^3/uL (0.0-0.2) Sodium Level 146 mmol/L (136-145) Potassium Level 3.9 mmol/L (3.5-5.1) Chloride Level 116 mmol/L (98-107) Carbon Dioxide Level 14 mmol/L (21-32) Anion Gap 16 (6-14) Blood Urea Nitrogen 83 mg/dL (7-20) Creatinine 4.8 mg/dL (0.6-1.0) Estimated GFR (Cockcroft-Gault) 9.0 Glucose Level 76 mg/dL (70-99) Calcium Level 7.2 mg/dL (8.5-10.1) Phosphorus Level 6.5 mg/dL (2.6-4.7) Magnesium Level 1.4 mg/dL (1.8-2.4) Iron Level 52 ug/dL (50-170) Total Iron Binding Capacity 147 ug/dL (250-450) Iron Saturation 35 % (15-34) Albumin 3.0 g/dL (3.4-5.0) Vitamin B12 Level 611 pg/mL (247-911) Serum Folate > 24.00 ng/ml (3.2-20.0) Problem List Problems Medical Problems: (1) Anemia Status: Acute (2) Renal failure Status: Acute Assessment/Plan sbo vs ileus taking some clears, would be cautious with diet advancement xray improved Problems: SABRINA SOLER APRN May 04, 2017 13:25
[2017-05-04 14:26] LABS: BILIRUBIN,URINE NEGATIVE (NEG); GLUCOSE,URINE NEGATIVE (NEG); NITRITE,URINE POSITIVE (NEG); PH,URINE 5.5; PROTEIN,URINE 30 mg/dL (NEG-TRACE); UROBILINOGEN,URINE 0.2 mg/dL (0.2 mg/dL)
[2017-05-04 14:35] LABS: BACTERIA,URINE MANY /HPF (0-FEW); RBC,URINE 0 /HPF (0-2); SQUAMOUS EPITHELIAL CELL,UR MOD /LPF; WBC,URINE TNTC /HPF (0-4)
[2017-05-04] MEDS: ACETAMINOPHEN 325 MG TABLET. PO PRN (18:10)
[2017-05-04] MEDS ORDERED: MORPHINE SULFATE 4 MG/ML DISP.SYRIN. IV PRN (18:15)
[2017-05-04] MEDS ORDERED: DARBEPOETIN ALFA 60 MCG/0.3 ML DISP.SYRIN. SQ SCH (21:00)
[2017-05-04 21:09] LABS: UR PROTEIN RD 34.4 mg/dL (Not Estab.)
[2017-05-05] MEDS: DEXTROSE 5% IV SCH ×3 (00:05→13:25)
[2017-05-05] MEDS: POTASSIUM ACETATE IV SCH ×3 (00:05→13:25)
[2017-05-05] MEDS: SODIUM BICARBONATE IV SCH ×3 (00:05→13:25)
[2017-05-05] MEDS ORDERED: MAGNESIUM SULFATE 2GM 50 ML IV ONE (02:45)
[2017-05-05 03:00] VITALS: BP 139/81
[2017-05-05 05:56] LABS: ALBUMIN 2.6 g/dL (3.4-5.0); CALCIUM 7.2 mg/dL (8.5-10.1); CREATININE 4.2 mg/dL (0.6-1.0); GFR 10.5; PHOSPHORUS 4.9 mg/dL (2.6-4.7); POTASSIUM 3.4 mmol/L (3.5-5.1)
[2017-05-05 07:00] VITALS: BP 130/77
--- NOTE | 2017-05-05 09:20 | PDOC ---
PULMONARY PROGRESS NOTES Subjective no sob, cough, pain. is tired Vitals Vital Signs Date Time Temp Pulse Resp B/P (MAP) Pulse Ox O2 Delivery O2 Flow Rate FiO2 05/05/17 07:00 98.0 71 18 130/77 (94) 98 Room Air 98.0 General: Alert, No acute distress Lungs: Other (deminished bs) Cardiovascular: S1, S2 Abdomen: Soft, Non-tender Neuro Exam: Alert Extremities: Other (trace edema) Skin: Warm Labs Laboratory Tests Test 05/04/17 04:40 05/04/17 14:00 05/05/17 04:35 White Blood Count 4.9 x10^3/uL (4.0-11.0) Red Blood Count 2.42 x10^6/uL (3.50-5.40) Hemoglobin 6.7 g/dL (12.0-15.5) Hematocrit 21.2 % (36.0-47.0) Mean Corpuscular Volume 88 fL (79-100) Mean Corpuscular Hemoglobin 28 pg (25-35) Mean Corpuscular Hemoglobin Concent 31 g/dL (31-37) Red Cell Distribution Width 16.9 % (11.5-14.5) Platelet Count 104 x10^3/uL (140-400) Neutrophils (%) (Auto) 72 % (31-73) Lymphocytes (%) (Auto) 20 % (24-48) Monocytes (%) (Auto) 6 % (0-9) Eosinophils (%) (Auto) 2 % (0-3) Basophils (%) (Auto) 1 % (0-3) Neutrophils # (Auto) 3.5 x10^3uL (1.8-7.7) Lymphocytes # (Auto) 1.0 x10^3/uL (1.0-4.8) Monocytes # (Auto) 0.3 x10^3/uL (0.0-1.1) Eosinophils # (Auto) 0.1 x10^3/uL (0.0-0.7) Basophils # (Auto) 0.0 x10^3/uL (0.0-0.2) Sodium Level 146 mmol/L (136-145) 143 mmol/L (136-145) Potassium Level 3.9 mmol/L (3.5-5.1) 3.4 mmol/L (3.5-5.1) Chloride Level 116 mmol/L (98-107) 111 mmol/L (98-107) Carbon Dioxide Level 14 mmol/L (21-32) 17 mmol/L (21-32) Anion Gap 16 (6-14) 15 (6-14) Blood Urea Nitrogen 83 mg/dL (7-20) 68 mg/dL (7-20) Creatinine 4.8 mg/dL (0.6-1.0) 4.2 mg/dL (0.6-1.0) Estimated GFR (Cockcroft-Gault) 9.0 10.5 Glucose Level 76 mg/dL (70-99) 88 mg/dL (70-99) Calcium Level 7.2 mg/dL (8.5-10.1) 7.2 mg/dL (8.5-10.1) Phosphorus Level 6.5 mg/dL (2.6-4.7) 4.9 mg/dL (2.6-4.7) Magnesium Level 1.4 mg/dL (1.8-2.4) 2.2 mg/dL (1.8-2.4) Iron Level 52 ug/dL (50-170) Total Iron Binding Capacity 147 ug/dL (250-450) Iron Saturation 35 % (15-34) Albumin 3.0 g/dL (3.4-5.0) 2.6 g/dL (3.4-5.0) Vitamin B12 Level 611 pg/mL (247-911) Serum Folate > 24.00 ng/ml (3.2-20.0) Urine Collection Type Unknown Urine Color Yellow Urine Clarity Cloudy Urine pH 5.5 Urine Specific [place] 1.010 Urine Protein 34.4 mg/dL (Not Estab.) Urine Glucose (UA) Negative mg/dL (NEG) Urine Ketones (Stick) Negative mg/dL (NEG) Urine Blood Moderate (NEG) Urine Nitrite Positive (NEG) Urine Bilirubin Negative (NEG) Urine Urobilinogen Dipstick 0.2 mg/dL (0.2 mg/dL) Urine Leukocyte Esterase Large (NEG) Urine RBC 0 /HPF (0-2) Urine WBC Tntc /HPF (0-4) Urine Squamous Epithelial Cells Mod /LPF Urine Transitional Epithelial Cells Mod /LPF Urine Bacteria Many /HPF (0-FEW) Urine Random Sodium 88 mmol/L (Not Estab.) Urine Creatinine 50.0 mg/dL (Not Estab.) Urine Protein/Creatinine Ratio 688 mg/g creat (0-200) Laboratory Tests Test 05/04/17 14:00 05/05/17 04:35 Urine Collection Type Unknown Urine Color Yellow Urine Clarity Cloudy Urine pH 5.5 Urine Specific [place] 1.010 Urine Protein 34.4 mg/dL (Not Estab.) Urine Glucose (UA) Negative mg/dL (NEG) Urine Ketones (Stick) Negative mg/dL (NEG) Urine Blood Moderate (NEG) Urine Nitrite Positive (NEG) Urine Bilirubin Negative (NEG) Urine Urobilinogen Dipstick 0.2 mg/dL (0.2 mg/dL) Urine Leukocyte Esterase Large (NEG) Urine RBC 0 /HPF (0-2) Urine WBC Tntc /HPF (0-4) Urine Squamous Epithelial Cells Mod /LPF Urine Transitional Epithelial Cells Mod /LPF Urine Bacteria Many /HPF (0-FEW) Urine Random Sodium 88 mmol/L (Not Estab.) Urine Creatinine 50.0 mg/dL (Not Estab.) Urine Protein/Creatinine Ratio 688 mg/g creat (0-200) Sodium Level 143 mmol/L (136-145) Potassium Level 3.4 mmol/L (3.5-5.1) Chloride Level 111 mmol/L (98-107) Carbon Dioxide Level 17 mmol/L (21-32) Anion Gap 15 (6-14) Blood Urea Nitrogen 68 mg/dL (7-20) Creatinine 4.2 mg/dL (0.6-1.0) Estimated GFR (Cockcroft-Gault) 10.5 Glucose Level 88 mg/dL (70-99) Calcium Level 7.2 mg/dL (8.5-10.1) Phosphorus Level 4.9 mg/dL (2.6-4.7) Magnesium Level 2.2 mg/dL (1.8-2.4) Albumin 2.6 g/dL (3.4-5.0) Medications Active Scripts Medications Dose Route/Sig Max Daily Dose Days Date Category Vitamin D2 (Ergocalciferol (Vitamin D2)) 50,000 Unit Capsule 50,000 Unit PO WEEKLY 12/07/16 Rx Folbic Tablet (Cyanocobalamin/Fa/Pyridoxine) 1 Each Tablet 1 Tab PO DAILY 12/07/16 Rx Calcitriol 0.25 Mcg Capsule 0.25 Mcg PO DAILY 12/07/16 Rx Flovent 50MCG Diskus (Fluticasone Propionate) 50 Mcg Disk.w.dev 50 Mcg IH BID 09/04/13 Reported Imodium A-D (Loperamide Hcl) 1 Mg/7.5 Ml Liquid 2 Mg PO DAILY08 09/04/13 Reported Norvasc (Amlodipine Besylate) 10 Mg Tablet 10 Mg PO DAILY08 09/04/13 Reported Impression . 1. Abnormal arterial blood gases secondary to acute metabolic acidosis with respiratory compensation. 2. Increased anion gap metabolic acidosis secondary to acute kidney injury, most likely from dehydration. Her lactic acid is normal. 3. History of asthma as a child. She did outgrow it, but then in last few months her asthma has been under suboptimal control. She would benefit from maintenance steroid inhaler and in hospital we will provide her Pulmicort nebulizer treatment. 4. Clear chest x-ray. 5. Acute renal failure, suspect caused by dehydration. I would recommend aggressive hydration. 6. Small-bowel obstruction. Being followed by Surgery. Plan . 1. From pulmonary standpoint, her breathing seems to be stable. start nebulizer treatments with Pulmicort and at discharge I would place her on Flovent. 2. Aggressive volume resuscitation. 3. Monitor renal function. 4. Monitor hemoglobin closely, s/p prbc 05/04 5. Follow Renal and Surgery recommendations. 6. Follow anion gap. 7. Continue with bicarbonate. 8. start IS Discussed with pt, RN. NATTY ALVARADO MD May 05, 2017 09:19
[2017-05-05] MEDS: IPRATRPIUM/ALBUTEROL 0.5/2.5MG 3 ML NEBU. NEB SCH ×4 (09:30→18:27)
[2017-05-05] MEDS: LOPERAMIDE 2 MG CAPSULE PO SCH (09:30)
[2017-05-05] MEDS: VITAMIN B12,B9,B6 COMPLEX 1 TABLET. PO SCH (09:58)
[2017-05-05] MEDS: amLODIPine BESYLATE 10 MG TABLET PO SCH (09:58)
[2017-05-05] MEDS: CALCITRIOL 0.25 MCG CAPSULE. PO SCH (09:59)
--- NOTE | 2017-05-05 10:07 | PDOC ---
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 05/05/17 1007: SURGICAL PROGRESS NOTE Subjective loose stool x 2 --no blood in stool No n/v no abdominal pain Vital Signs Vital Signs Date Time Temp Pulse Resp B/P (MAP) Pulse Ox O2 Delivery O2 Flow Rate FiO2 05/05/17 09:58 71 130/77 05/05/17 07:00 98.0 18 98 Room Air 98.0 I&O Intake and Output 05/06/17 07:00 Intake Total 960 ml Output Total 400 ml Balance 560 ml Intake Oral 960 ml Output Urine Total 400 ml General: Alert, Oriented X3, Cooperative, No acute distress Abdomen: Soft, No tenderness, Other (ND) Labs Laboratory Tests Test 05/04/17 04:40 05/04/17 14:00 05/05/17 04:35 White Blood Count 4.9 x10^3/uL (4.0-11.0) Red Blood Count 2.42 x10^6/uL (3.50-5.40) Hemoglobin 6.7 g/dL (12.0-15.5) Hematocrit 21.2 % (36.0-47.0) Mean Corpuscular Volume 88 fL (79-100) Mean Corpuscular Hemoglobin 28 pg (25-35) Mean Corpuscular Hemoglobin Concent 31 g/dL (31-37) Red Cell Distribution Width 16.9 % (11.5-14.5) Platelet Count 104 x10^3/uL (140-400) Neutrophils (%) (Auto) 72 % (31-73) Lymphocytes (%) (Auto) 20 % (24-48) Monocytes (%) (Auto) 6 % (0-9) Eosinophils (%) (Auto) 2 % (0-3) Basophils (%) (Auto) 1 % (0-3) Neutrophils # (Auto) 3.5 x10^3uL (1.8-7.7) Lymphocytes # (Auto) 1.0 x10^3/uL (1.0-4.8) Monocytes # (Auto) 0.3 x10^3/uL (0.0-1.1) Eosinophils # (Auto) 0.1 x10^3/uL (0.0-0.7) Basophils # (Auto) 0.0 x10^3/uL (0.0-0.2) Sodium Level 146 mmol/L (136-145) 143 mmol/L (136-145) Potassium Level 3.9 mmol/L (3.5-5.1) 3.4 mmol/L (3.5-5.1) Chloride Level 116 mmol/L (98-107) 111 mmol/L (98-107) Carbon Dioxide Level 14 mmol/L (21-32) 17 mmol/L (21-32) Anion Gap 16 (6-14) 15 (6-14) Blood Urea Nitrogen 83 mg/dL (7-20) 68 mg/dL (7-20) Creatinine 4.8 mg/dL (0.6-1.0) 4.2 mg/dL (0.6-1.0) Estimated GFR (Cockcroft-Gault) 9.0 10.5 Glucose Level 76 mg/dL (70-99) 88 mg/dL (70-99) Calcium Level 7.2 mg/dL (8.5-10.1) 7.2 mg/dL (8.5-10.1) Phosphorus Level 6.5 mg/dL (2.6-4.7) 4.9 mg/dL (2.6-4.7) Magnesium Level 1.4 mg/dL (1.8-2.4) 2.2 mg/dL (1.8-2.4) Iron Level 52 ug/dL (50-170) Total Iron Binding Capacity 147 ug/dL (250-450) Iron Saturation 35 % (15-34) Albumin 3.0 g/dL (3.4-5.0) 2.6 g/dL (3.4-5.0) Vitamin B12 Level 611 pg/mL (247-911) Serum Folate > 24.00 ng/ml (3.2-20.0) Urine Collection Type Unknown Urine Color Yellow Urine Clarity Cloudy Urine pH 5.5 Urine Specific [place] 1.010 Urine Protein 34.4 mg/dL (Not Estab.) Urine Glucose (UA) Negative mg/dL (NEG) Urine Ketones (Stick) Negative mg/dL (NEG) Urine Blood Moderate (NEG) Urine Nitrite Positive (NEG) Urine Bilirubin Negative (NEG) Urine Urobilinogen Dipstick 0.2 mg/dL (0.2 mg/dL) Urine Leukocyte Esterase Large (NEG) Urine RBC 0 /HPF (0-2) Urine WBC Tntc /HPF (0-4) Urine Squamous Epithelial Cells Mod /LPF Urine Transitional Epithelial Cells Mod /LPF Urine Bacteria Many /HPF (0-FEW) Urine Random Sodium 88 mmol/L (Not Estab.) Urine Creatinine 50.0 mg/dL (Not Estab.) Urine Protein/Creatinine Ratio 688 mg/g creat (0-200) Laboratory Tests Test 05/04/17 14:00 05/05/17 04:35 Urine Collection Type Unknown Urine Color Yellow Urine Clarity Cloudy Urine pH 5.5 Urine Specific [place] 1.010 Urine Protein 34.4 mg/dL (Not Estab.) Urine Glucose (UA) Negative mg/dL (NEG) Urine Ketones (Stick) Negative mg/dL (NEG) Urine Blood Moderate (NEG) Urine Nitrite Positive (NEG) Urine Bilirubin Negative (NEG) Urine Urobilinogen Dipstick 0.2 mg/dL (0.2 mg/dL) Urine Leukocyte Esterase Large (NEG) Urine RBC 0 /HPF (0-2) Urine WBC Tntc /HPF (0-4) Urine Squamous Epithelial Cells Mod /LPF Urine Transitional Epithelial Cells Mod /LPF Urine Bacteria Many /HPF (0-FEW) Urine Random Sodium 88 mmol/L (Not Estab.) Urine Creatinine 50.0 mg/dL (Not Estab.) Urine Protein/Creatinine Ratio 688 mg/g creat (0-200) Sodium Level 143 mmol/L (136-145) Potassium Level 3.4 mmol/L (3.5-5.1) Chloride Level 111 mmol/L (98-107) Carbon Dioxide Level 17 mmol/L (21-32) Anion Gap 15 (6-14) Blood Urea Nitrogen 68 mg/dL (7-20) Creatinine 4.2 mg/dL (0.6-1.0) Estimated GFR (Cockcroft-Gault) 10.5 Glucose Level 88 mg/dL (70-99) Calcium Level 7.2 mg/dL (8.5-10.1) Phosphorus Level 4.9 mg/dL (2.6-4.7) Magnesium Level 2.2 mg/dL (1.8-2.4) Albumin 2.6 g/dL (3.4-5.0) Problem List Problems Medical Problems: (1) Anemia Status: Acute (2) Renal failure Status: Acute Assessment/Plan sbo vs ileus improving, slowly ADAT anemia--hgb 6.7 from 7.1 Problems: KENDY SANCHEZ MD 05/05/17 1115: SURGICAL PROGRESS NOTE Assessment/Plan No acute changes, no pain. Benign abd exam. SBO improving. Agree with Mario Alberto's assessment and plan. Problems: SABRINA SOLER APRN May 05, 2017 10:07 KENDY SANCHEZ MD May 05, 2017 11:15
[2017-05-05 10:50] VITALS: BP 139/82
--- NOTE | 2017-05-05 11:23 | PDOC ---
Renal-Progress Notes Subjective Notes Notes SOME NAUSEA, NOT EATING MUCH History of Present Illness Hx of present illness STABLE Vitals Vitals Vital Signs Date Time Temp Pulse Resp B/P (MAP) Pulse Ox O2 Delivery O2 Flow Rate FiO2 05/05/17 10:50 68 18 139/82 (101) 100 Room Air 05/05/17 07:00 98.0 98.0 Weight Weight [ ] I.O. Intake and Output Intake and Output 05/06/17 07:00 Intake Total 960 ml Output Total 400 ml Balance 560 ml Intake Oral 960 ml Output Urine Total 400 ml Labs Labs Laboratory Tests Test 05/04/17 14:00 05/05/17 04:35 Urine Collection Type Unknown Urine Color Yellow Urine Clarity Cloudy Urine pH 5.5 Urine Specific [place] 1.010 Urine Protein 34.4 mg/dL (Not Estab.) Urine Glucose (UA) Negative mg/dL (NEG) Urine Ketones (Stick) Negative mg/dL (NEG) Urine Blood Moderate (NEG) Urine Nitrite Positive (NEG) Urine Bilirubin Negative (NEG) Urine Urobilinogen Dipstick 0.2 mg/dL (0.2 mg/dL) Urine Leukocyte Esterase Large (NEG) Urine RBC 0 /HPF (0-2) Urine WBC Tntc /HPF (0-4) Urine Squamous Epithelial Cells Mod /LPF Urine Transitional Epithelial Cells Mod /LPF Urine Bacteria Many /HPF (0-FEW) Urine Random Sodium 88 mmol/L (Not Estab.) Urine Creatinine 50.0 mg/dL (Not Estab.) Urine Protein/Creatinine Ratio 688 mg/g creat (0-200) Sodium Level 143 mmol/L (136-145) Potassium Level 3.4 mmol/L (3.5-5.1) Chloride Level 111 mmol/L (98-107) Carbon Dioxide Level 17 mmol/L (21-32) Anion Gap 15 (6-14) Blood Urea Nitrogen 68 mg/dL (7-20) Creatinine 4.2 mg/dL (0.6-1.0) Estimated GFR (Cockcroft-Gault) 10.5 Glucose Level 88 mg/dL (70-99) Calcium Level 7.2 mg/dL (8.5-10.1) Phosphorus Level 4.9 mg/dL (2.6-4.7) Magnesium Level 2.2 mg/dL (1.8-2.4) Albumin 2.6 g/dL (3.4-5.0) Review of Systems Constitutional: yes: malaise, weakness, alert, oriented Ears/Nose/Throat: Yes: no symptom reported Eyes: Yes: no symptom reported Cardiovascular: Yes no symptom reported Gastrointestional: Yes: nausea Genitourinary: Yes: no symptom reported Musculoskeletal: Yes: muscle stiffness Skin: Yes no symptom reported Psychiatric/Neurological: Yes: no symptom reported Endocrine: Yes: no symptom reported Hematologic/Lymphatic: Yes: no symptom reported Physical Exam General Appearance: no apparent distress Skin: warm Respiratory: decreased breath sounds Heart: S1S2, RRR Abdomen: soft, other (HYPOACTIVE) Extremities: pulses present, no edema Neurology: alert Assessment Assessment IMP CKD 4 WITH CR OF ABOUT 2.5 AT BASELINE [place] WITH CR OF ABOUT 5.0 ANEMIA SBO VS ILEUS PLAN CONT WITH SCARLET MAY NEED PRBC MAINTAIN TEMP HD CATHETER ENC PO TOLERATED CONT IVF'S ALSO START PPN FOR NOW LABS IN AM MAY NEED DIALYSIS SOON LIONEL BRAGA MD May 05, 2017 11:23
[2017-05-05] MEDS: BUDESONIDE 0.5 MG/2 ML NEBU. NEB SCH ×2 (11:34→18:27)
[2017-05-05] MEDS: AMINO AC 3%/ELECTROLYTE/GLYCER 1,000 ML IV SCH ×2 (11:37→23:52)
--- NOTE | 2017-05-05 13:41 | PDOC ---
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 prior B12 def,. dehydration, w/ nausea and vomiting. Small-bowel obstruction. surgical following Prior Hx of colon cancer. Thrombocytopenia. Reactive History of Present Illness History of Present Illness stronger today a little improved better PO intake s/p 1 u prbc yestedray renal following acidosis, SANGITA on CKD Vitals Vitals Vital Signs Date Time Temp Pulse Resp B/P (MAP) Pulse Ox O2 Delivery O2 Flow Rate FiO2 05/05/17 11:38 98 Room Air 05/05/17 10:50 68 18 139/82 (101) 05/05/17 07:00 98.0 98.0 Physical Exam General: Alert, Oriented X3, Cooperative, No acute distress Heart: Normal S1, Normal S2 Lungs: Other (deminished bs) Abdomen: Soft, No tenderness, Other (ND) Skin: No rashes Labs LABS Laboratory Tests Test 05/04/17 14:00 05/05/17 04:35 Urine Collection Type Unknown Urine Color Yellow Urine Clarity Cloudy Urine pH 5.5 Urine Specific [place] 1.010 Urine Protein 34.4 mg/dL (Not Estab.) Urine Glucose (UA) Negative mg/dL (NEG) Urine Ketones (Stick) Negative mg/dL (NEG) Urine Blood Moderate (NEG) Urine Nitrite Positive (NEG) Urine Bilirubin Negative (NEG) Urine Urobilinogen Dipstick 0.2 mg/dL (0.2 mg/dL) Urine Leukocyte Esterase Large (NEG) Urine RBC 0 /HPF (0-2) Urine WBC Tntc /HPF (0-4) Urine Squamous Epithelial Cells Mod /LPF Urine Transitional Epithelial Cells Mod /LPF Urine Bacteria Many /HPF (0-FEW) Urine Random Sodium 88 mmol/L (Not Estab.) Urine Creatinine 50.0 mg/dL (Not Estab.) Urine Protein/Creatinine Ratio 688 mg/g creat (0-200) Sodium Level 143 mmol/L (136-145) Potassium Level 3.4 mmol/L (3.5-5.1) Chloride Level 111 mmol/L (98-107) Carbon Dioxide Level 17 mmol/L (21-32) Anion Gap 15 (6-14) Blood Urea Nitrogen 68 mg/dL (7-20) Creatinine 4.2 mg/dL (0.6-1.0) Estimated GFR (Cockcroft-Gault) 10.5 Glucose Level 88 mg/dL (70-99) Calcium Level 7.2 mg/dL (8.5-10.1) Phosphorus Level 4.9 mg/dL (2.6-4.7) Magnesium Level 2.2 mg/dL (1.8-2.4) Albumin 2.6 g/dL (3.4-5.0) Review of Systems Review of Systems no n.vd Assessment and Plan Assessmemt and Plan Problems Medical Problems: (1) Anemia Status: Acute (2) Renal failure Status: Acute Problems: Comment Review of Relevant I have reviewed the following items yoel (where applicable) has been applied. Labs Laboratory Tests Test 05/04/17 04:40 05/04/17 14:00 05/05/17 04:35 White Blood Count 4.9 x10^3/uL (4.0-11.0) Red Blood Count 2.42 x10^6/uL (3.50-5.40) Hemoglobin 6.7 g/dL (12.0-15.5) Hematocrit 21.2 % (36.0-47.0) Mean Corpuscular Volume 88 fL (79-100) Mean Corpuscular Hemoglobin 28 pg (25-35) Mean Corpuscular Hemoglobin Concent 31 g/dL (31-37) Red Cell Distribution Width 16.9 % (11.5-14.5) Platelet Count 104 x10^3/uL (140-400) Neutrophils (%) (Auto) 72 % (31-73) Lymphocytes (%) (Auto) 20 % (24-48) Monocytes (%) (Auto) 6 % (0-9) Eosinophils (%) (Auto) 2 % (0-3) Basophils (%) (Auto) 1 % (0-3) Neutrophils # (Auto) 3.5 x10^3uL (1.8-7.7) Lymphocytes # (Auto) 1.0 x10^3/uL (1.0-4.8) Monocytes # (Auto) 0.3 x10^3/uL (0.0-1.1) Eosinophils # (Auto) 0.1 x10^3/uL (0.0-0.7) Basophils # (Auto) 0.0 x10^3/uL (0.0-0.2) Sodium Level 146 mmol/L (136-145) 143 mmol/L (136-145) Potassium Level 3.9 mmol/L (3.5-5.1) 3.4 mmol/L (3.5-5.1) Chloride Level 116 mmol/L (98-107) 111 mmol/L (98-107) Carbon Dioxide Level 14 mmol/L (21-32) 17 mmol/L (21-32) Anion Gap 16 (6-14) 15 (6-14) Blood Urea Nitrogen 83 mg/dL (7-20) 68 mg/dL (7-20) Creatinine 4.8 mg/dL (0.6-1.0) 4.2 mg/dL (0.6-1.0) Estimated GFR (Cockcroft-Gault) 9.0 10.5 Glucose Level 76 mg/dL (70-99) 88 mg/dL (70-99) Calcium Level 7.2 mg/dL (8.5-10.1) 7.2 mg/dL (8.5-10.1) Phosphorus Level 6.5 mg/dL (2.6-4.7) 4.9 mg/dL (2.6-4.7) Magnesium Level 1.4 mg/dL (1.8-2.4) 2.2 mg/dL (1.8-2.4) Iron Level 52 ug/dL (50-170) Total Iron Binding Capacity 147 ug/dL (250-450) Iron Saturation 35 % (15-34) Albumin 3.0 g/dL (3.4-5.0) 2.6 g/dL (3.4-5.0) Vitamin B12 Level 611 pg/mL (247-911) Serum Folate > 24.00 ng/ml (3.2-20.0) Urine Collection Type Unknown Urine Color Yellow Urine Clarity Cloudy Urine pH 5.5 Urine Specific [place] 1.010 Urine Protein 34.4 mg/dL (Not Estab.) Urine Glucose (UA) Negative mg/dL (NEG) Urine Ketones (Stick) Negative mg/dL (NEG) Urine Blood Moderate (NEG) Urine Nitrite Positive (NEG) Urine Bilirubin Negative (NEG) Urine Urobilinogen Dipstick 0.2 mg/dL (0.2 mg/dL) Urine Leukocyte Esterase Large (NEG) Urine RBC 0 /HPF (0-2) Urine WBC Tntc /HPF (0-4) Urine Squamous Epithelial Cells Mod /LPF Urine Transitional Epithelial Cells Mod /LPF Urine Bacteria Many /HPF (0-FEW) Urine Random Sodium 88 mmol/L (Not Estab.) Urine Creatinine 50.0 mg/dL (Not Estab.) Urine Protein/Creatinine Ratio 688 mg/g creat (0-200) Laboratory Tests Test 05/04/17 14:00 05/05/17 04:35 Urine Collection Type Unknown Urine Color Yellow Urine Clarity Cloudy Urine pH 5.5 Urine Specific [place] 1.010 Urine Protein 34.4 mg/dL (Not Estab.) Urine Glucose (UA) Negative mg/dL (NEG) Urine Ketones (Stick) Negative mg/dL (NEG) Urine Blood Moderate (NEG) Urine Nitrite Positive (NEG) Urine Bilirubin Negative (NEG) Urine Urobilinogen Dipstick 0.2 mg/dL (0.2 mg/dL) Urine Leukocyte Esterase Large (NEG) Urine RBC 0 /HPF (0-2) Urine WBC Tntc /HPF (0-4) Urine Squamous Epithelial Cells Mod /LPF Urine Transitional Epithelial Cells Mod /LPF Urine Bacteria Many /HPF (0-FEW) Urine Random Sodium 88 mmol/L (Not Estab.) Urine Creatinine 50.0 mg/dL (Not Estab.) Urine Protein/Creatinine Ratio 688 mg/g creat (0-200) Sodium Level 143 mmol/L (136-145) Potassium Level 3.4 mmol/L (3.5-5.1) Chloride Level 111 mmol/L (98-107) Carbon Dioxide Level 17 mmol/L (21-32) Anion Gap 15 (6-14) Blood Urea Nitrogen 68 mg/dL (7-20) Creatinine 4.2 mg/dL (0.6-1.0) Estimated GFR (Cockcroft-Gault) 10.5 Glucose Level 88 mg/dL (70-99) Calcium Level 7.2 mg/dL (8.5-10.1) Phosphorus Level 4.9 mg/dL (2.6-4.7) Magnesium Level 2.2 mg/dL (1.8-2.4) Albumin 2.6 g/dL (3.4-5.0) Medications Current Medications Ondansetron HCl (Zofran) 4 mg 1X ONCE IV Last administered on 05/02/17 23:27 ; Start 05/02/17 at 23:15; Stop 05/02/17 at 23:16; Status DC Multi-Ingredient Mouthwash/Gargle (Gi Cocktail Single Dose) 15 ml 1X ONCE SWSW Last administered on 05/02/17 23:27; Start 05/02/17 at 23:15; Stop 05/02/17 at 23:16; Status DC Sodium Bicarbonate 100 meq 1X ONCE IV Last administered on 05/03/17 01:17; Start 05/03/17 at 01:15; Stop 05/03/17 at 01:16; Status DC Ondansetron HCl (Zofran) 4 mg PRN Q8HRS PRN IV NAUSEA/VOMITING; Start 05/03/17 at 01:15; Stop 05/04/17 at 01:14; Status DC Morphine Sulfate 2 mg PRN Q2HR PRN IV PAIN; Start 05/03/17 at 01:15; Stop 05/04 at 01:14; Status DC Sodium Chloride 1,000 ml @ 125 mls/hr 1X ONCE IV Last administered on 04:45; Start 05/03/17 at 04:30; Stop 05/04/17 at 10:02; Status DC Magnesium Sulfate/ Dextrose 50 ml @ 25 mls/hr PRN DAILY PRN IV for Mag < 1.7 on am labs; Start 05/03/17 at 09:15 Sodium Bicarbonate 75 meq/Sodium Chloride 1,075 ml @ 75 mls/hr [id number] IV Last administered on 05/03/17 17:17; Start 05/03/17 at 10:00; Stop 05/03/17 at 21:50; Status DC Budesonide (Pulmicort) 0.5 mg RTBID NEB Last administered on 05/05/17 11:34; Start 05/03/17 at 12:00 Sodium Chloride 1,000 ml @ 250 mls/hr 1X ONCE IV Last administered on 13:17; Start 05/03/17 at 12:30; Stop 05/03/17 at 16:44; Status DC Amlodipine Besylate (Norvasc) 10 mg DAILY08 PO Last administered on 05/05/17 09:58; Start 05/03/17 at 15:00 Calcitriol (Rocaltrol) 0.25 mcg DAILY PO Last administered on 05/05/17 09:59; Start 05/03/17 at 15:00 Vitamin B Complex (Folbic Tablet) 1 tab DAILY PO Last administered on 09:58; Start 05/03/17 at 15:00 Ergocalciferol (Vitamin D2) 50,000 unit WEEKLY PO ; Start 05/10/17 at 09:00 Non-Formulary Medication 50 mcg BID IH ; Start 05/03/17 at 21:00; Stop 05/03/17 at 21:00; Status DC Loperamide HCl (Imodium) 2 mg DAILY08 PO Last administered on 05/05/17 09:30; Start 05/03/17 at 15:00; Stop 05/05/17 at 10:49; Status DC Sodium Chloride 1,000 ml @ 100 mls/hr Q10H IV Last administered on 05/04/17 06:01; Start 05/03/17 at 21:30; Stop 05/04/17 at 07:04; Status DC Sodium Chloride 1,000 ml @ 100 mls/hr Q10H IV Last administered on 05/04/17 07:10; Start 05/04/17 at 07:30; Stop 05/04/17 at 10:02; Status DC Sodium Bicarbonate 75 meq/Potassium Acetate 20 meq/ Dextrose 1,085 ml @ 50 mls/ hr [id number] IV Last administered on 05/05/17 13:25; Start 05/04/17 at 10:00 Darbepoetin Jono (Aranesp) 60 mcg [id number] SQ Last administered on 05/04/17 20 :51; Start 05/04/17 at 21:00 Lidocaine/Sodium Bicarbonate (Buffered Lidocaine 1%) 20 ml STK-MED ONCE IJ ; Start 05/04/17 at 10:23; Stop 05/04/17 at 10:24; Status DC Heparin Sodium (Porcine) (Heparin Sodium) 10,000 unit STK-MED ONCE .ROUTE ; Start 05/04/17 at 10:23; Stop 05/04/17 at 10:24; Status DC Heparin Sodium/ Sodium Chloride 500 ml @ As Directed STK-MED ONCE .ROUTE ; Start 05/04/17 at 10:23; Stop 05/04/17 at 10:24; Status DC Lidocaine/Sodium Bicarbonate (Buffered Lidocaine 1%) 20 ml 1X ONCE IJ Last administered on 05/04/17 11:22; Start 05/04/17 at 11:00; Stop 05/04/17 at 11:02 ; Status DC Heparin Sodium/ Sodium Chloride 1,000 unit 1X ONCE IV Last administered on 11:23; Start 05/04/17 at 11:00; Stop 05/04/17 at 11:02; Status DC Heparin Sodium (Porcine) (Heparin Sodium) 2,600 unit 1X ONCE INT CAT Last administered on 05/04/17 11:22; Start 05/04/17 at 11:00; Stop 05/04/17 at 11:02 ; Status DC Acetaminophen (Tylenol) 650 mg PRN Q6HRS PRN PO MILD PAIN Last administered on 05/04/17 18:10; Start 05/04/17 at 18:15 Tramadol HCl (Ultram) 50 mg PRN Q6HRS PRN PO PAIN; Start 05/04/17 at 18:15 Morphine Sulfate 2 mg PRN Q4HRS PRN IV PAIN; Start 05/04/17 at 18:15 Magnesium Sulfate/ Dextrose 50 ml @ 25 mls/hr 1X ONCE IV Last administered on 05/05/17 02:52; Start 05/05/17 at 02:45; Stop 05/05/17 at 04:44; Status DC Albuterol/ Ipratropium (Duoneb) 3 ml RTQID NEB Last administered on 05/05/17 11:34; Start 05/05/17 at 09:30 Amino Acids/ Glycerin/ Electrolytes 1,000 ml @ 80 mls/hr [id number] IV Last administered on 05/05/17 11:37; Start 05/05/17 at 11:30 Active Scripts Active Vitamin D2 (Ergocalciferol (Vitamin D2)) 50,000 Unit Capsule 50,000 Unit PO WEEKLY Folbic Tablet (Cyanocobalamin/Fa/Pyridoxine) 1 Each Tablet 1 Tab PO DAILY Calcitriol 0.25 Mcg Capsule 0.25 Mcg PO DAILY Reported Flovent 50MCG Diskus (Fluticasone Propionate) 50 Mcg Disk.w.dev 50 Mcg IH BID Imodium A-D (Loperamide Hcl) 1 Mg/7.5 Ml Liquid 2 Mg PO DAILY08 Norvasc (Amlodipine Besylate) 10 Mg Tablet 10 Mg PO DAILY08 Vitals/I & O Vital Sign - Last 24 Hours 05/04/17 05/04/17 05/04/17 05/04/17 13:45 14:45 18:00 18:17 Temp 98.3 98.3 98.3 98.3 98.3 98.3 Pulse 72 71 79 79 Resp 18 18 18 B/P (MAP) 113/68 (83) 102/68 (79) 131/72 (91) 131/72 Pulse Ox 100 100 O2 Delivery Room Air Room Air 05/04/17 05/04/17 05/04/17 05/04/17 18:32 19:30 20:00 20:30 Temp 98.3 98.4 98.6 98.3 98.4 98.6 Pulse 76 81 75 Resp 18 16 16 B/P (MAP) 122/73 127/78 131/72 O2 Delivery Room Air 05/04/17 05/04/17 05/04/17 05/05/17 21:30 22:00 23:00 03:00 Temp 98.6 98.6 98.4 98.1 98.6 98.6 98.4 98.1 Pulse 77 79 75 67 Resp 17 20 20 B/P (MAP) 137/68 134/73 140/87 (104) 139/81 (100) Pulse Ox 99 100 O2 Delivery Room Air Room Air 05/05/17 05/05/17 05/05/17 05/05/17 07:00 09:58 10:50 11:38 Temp 98.0 98.0 Pulse 71 71 68 Resp 18 18 B/P (MAP) 130/77 (94) 130/77 139/82 (101) Pulse Ox 98 100 98 O2 Delivery Room Air Room Air Room Air Intake and Output 05/05/17 05/05/17 05/06/17 15:00 23:00 07:00 Intake Total 960 ml Output Total 400 ml Balance 560 ml JONY PRIEST MD May 05, 2017 13:41
[2017-05-05] MEDS: traMADol 50 MG TABLET PO PRN ×2 (14:43→23:55)
[2017-05-05 15:00] VITALS: BP 108/69
[2017-05-05 19:00] VITALS: BP 113/65
[2017-05-05 23:00] VITALS: BP 118/73
[2017-05-06] VITALS (9 sets, daily range): BP systolic 108–134; BP diastolic 57–75
[2017-05-06 05:26] LABS: BASO % 0 % (0-3); EOS % 1 % (0-3); HEMATOCRIT 21.1 % (36.0-47.0); LYMPH # 1.2 x10^3/uL (1.0-4.8); LYMPH % 20 % (24-48); MEAN CORPUSCULAR HEMOGLOBIN 29 pg (25-35); MEAN CORPUSCULAR HGB CONC 33 g/dL (31-37); MEAN CORPUSCULAR VOLUME 87 fL (79-100); MONO % 10 % (0-9); NEUT % 69 % (31-73); PLATELET COUNT 84 x10^3/uL (140-400); RED BLOOD COUNT 2.43 x10^6/uL (3.50-5.40); RED CELL DISTRIBUTION WIDTH 16.1 % (11.5-14.5); WHITE BLOOD COUNT 5.8 x10^3/uL (4.0-11.0)
[2017-05-06 05:27] LABS: ALBUMIN 2.4 g/dL (3.4-5.0); ALBUMIN/GLOBULIN RATIO 0.9 (1.0-1.7); CALCIUM 7.3 mg/dL (8.5-10.1); CREATININE 3.7 mg/dL (0.6-1.0); GFR 12.2; POTASSIUM 3.5 mmol/L (3.5-5.1); TOTAL BILIRUBIN 0.2 mg/dL (0.2-1.0); TOTAL PROTEIN 5.1 g/dL (6.4-8.2)
[2017-05-06 05:35] LABS: ALBUMIN 2.5 g/dL (3.4-5.0); CALCIUM 7.4 mg/dL (8.5-10.1); CREATININE 3.7 mg/dL (0.6-1.0); GFR 12.2; PHOSPHORUS 4.5 mg/dL (2.6-4.7); POTASSIUM 3.6 mmol/L (3.5-5.1)
[2017-05-06 06:27] LABS: HEMOGLOBIN 6.9 g/dL (12.0-15.5)
[2017-05-06] MEDS: BUDESONIDE 0.5 MG/2 ML NEBU. NEB SCH ×2 (07:41→19:34)
[2017-05-06] MEDS: IPRATRPIUM/ALBUTEROL 0.5/2.5MG 3 ML NEBU. NEB SCH ×4 (07:41→19:34)
[2017-05-06] MEDS: VITAMIN B12,B9,B6 COMPLEX 1 TABLET. PO SCH (08:29)
[2017-05-06] MEDS: amLODIPine BESYLATE 10 MG TABLET PO SCH (08:29)
[2017-05-06] MEDS: CALCITRIOL 0.25 MCG CAPSULE. PO SCH (08:29)
--- NOTE | 2017-05-06 08:30 | PDOC ---
SURGICAL PROGRESS NOTE Subjective Doing well, no pain had BM and passing flatus Vital Signs Vital Signs Date Time Temp Pulse Resp B/P (MAP) Pulse Ox O2 Delivery O2 Flow Rate FiO2 05/06/17 07:42 99 Room Air 05/06/17 07:00 98.0 74 18 134/75 (94) 98.0 PATIENT HAS A MOYA: No Abdomen: Normal bowel sounds, Soft, No tenderness Labs Laboratory Tests Test 05/04/17 14:00 05/05/17 04:35 05/06/17 04:37 Urine Collection Type Unknown Urine Color Yellow Urine Clarity Cloudy Urine pH 5.5 Urine Specific [place] 1.010 Urine Protein 34.4 mg/dL (Not Estab.) Urine Glucose (UA) Negative mg/dL (NEG) Urine Ketones (Stick) Negative mg/dL (NEG) Urine Blood Moderate (NEG) Urine Nitrite Positive (NEG) Urine Bilirubin Negative (NEG) Urine Urobilinogen Dipstick 0.2 mg/dL (0.2 mg/dL) Urine Leukocyte Esterase Large (NEG) Urine RBC 0 /HPF (0-2) Urine WBC Tntc /HPF (0-4) Urine Squamous Epithelial Cells Mod /LPF Urine Transitional Epithelial Cells Mod /LPF Urine Bacteria Many /HPF (0-FEW) Urine Random Sodium 88 mmol/L (Not Estab.) Urine Creatinine 50.0 mg/dL (Not Estab.) Urine Protein/Creatinine Ratio 688 mg/g creat (0-200) Sodium Level 143 mmol/L (136-145) 137 mmol/L (136-145) Potassium Level 3.4 mmol/L (3.5-5.1) 3.5 mmol/L (3.5-5.1) Chloride Level 111 mmol/L (98-107) 104 mmol/L (98-107) Carbon Dioxide Level 17 mmol/L (21-32) 21 mmol/L (21-32) Anion Gap 15 (6-14) 12 (6-14) Blood Urea Nitrogen 68 mg/dL (7-20) 62 mg/dL (7-20) Creatinine 4.2 mg/dL (0.6-1.0) 3.7 mg/dL (0.6-1.0) Estimated GFR (Cockcroft-Gault) 10.5 12.2 Glucose Level 88 mg/dL (70-99) 106 mg/dL (70-99) Calcium Level 7.2 mg/dL (8.5-10.1) 7.3 mg/dL (8.5-10.1) Phosphorus Level 4.9 mg/dL (2.6-4.7) 4.5 mg/dL (2.6-4.7) Magnesium Level 2.2 mg/dL (1.8-2.4) 1.9 mg/dL (1.8-2.4) Albumin 2.6 g/dL (3.4-5.0) 2.4 g/dL (3.4-5.0) White Blood Count 5.8 x10^3/uL (4.0-11.0) Red Blood Count 2.43 x10^6/uL (3.50-5.40) Hemoglobin 6.9 g/dL (12.0-15.5) Hematocrit 21.1 % (36.0-47.0) Mean Corpuscular Volume 87 fL (79-100) Mean Corpuscular Hemoglobin 29 pg (25-35) Mean Corpuscular Hemoglobin Concent 33 g/dL (31-37) Red Cell Distribution Width 16.1 % (11.5-14.5) Platelet Count 84 x10^3/uL (140-400) Neutrophils (%) (Auto) 69 % (31-73) Lymphocytes (%) (Auto) 20 % (24-48) Monocytes (%) (Auto) 10 % (0-9) Eosinophils (%) (Auto) 1 % (0-3) Basophils (%) (Auto) 0 % (0-3) Neutrophils # (Auto) 4.0 x10^3uL (1.8-7.7) Lymphocytes # (Auto) 1.2 x10^3/uL (1.0-4.8) Monocytes # (Auto) 0.6 x10^3/uL (0.0-1.1) Eosinophils # (Auto) 0.0 x10^3/uL (0.0-0.7) Basophils # (Auto) 0.0 x10^3/uL (0.0-0.2) BUN/Creatinine Ratio 17 (6-20) Total Bilirubin 0.2 mg/dL (0.2-1.0) Aspartate Amino Transf (AST/SGOT) 13 U/L (15-37) Alanine Aminotransferase (ALT/SGPT) 23 U/L (14-59) Alkaline Phosphatase 83 U/L (46-116) Total Protein 5.1 g/dL (6.4-8.2) Albumin/Globulin Ratio 0.9 (1.0-1.7) Laboratory Tests Test 05/06/17 04:37 White Blood Count 5.8 x10^3/uL (4.0-11.0) Red Blood Count 2.43 x10^6/uL (3.50-5.40) Hemoglobin 6.9 g/dL (12.0-15.5) Hematocrit 21.1 % (36.0-47.0) Mean Corpuscular Volume 87 fL (79-100) Mean Corpuscular Hemoglobin 29 pg (25-35) Mean Corpuscular Hemoglobin Concent 33 g/dL (31-37) Red Cell Distribution Width 16.1 % (11.5-14.5) Platelet Count 84 x10^3/uL (140-400) Neutrophils (%) (Auto) 69 % (31-73) Lymphocytes (%) (Auto) 20 % (24-48) Monocytes (%) (Auto) 10 % (0-9) Eosinophils (%) (Auto) 1 % (0-3) Basophils (%) (Auto) 0 % (0-3) Neutrophils # (Auto) 4.0 x10^3uL (1.8-7.7) Lymphocytes # (Auto) 1.2 x10^3/uL (1.0-4.8) Monocytes # (Auto) 0.6 x10^3/uL (0.0-1.1) Eosinophils # (Auto) 0.0 x10^3/uL (0.0-0.7) Basophils # (Auto) 0.0 x10^3/uL (0.0-0.2) Sodium Level 137 mmol/L (136-145) Potassium Level 3.5 mmol/L (3.5-5.1) Chloride Level 104 mmol/L (98-107) Carbon Dioxide Level 21 mmol/L (21-32) Anion Gap 12 (6-14) Blood Urea Nitrogen 62 mg/dL (7-20) Creatinine 3.7 mg/dL (0.6-1.0) Estimated GFR (Cockcroft-Gault) 12.2 BUN/Creatinine Ratio 17 (6-20) Glucose Level 106 mg/dL (70-99) Calcium Level 7.3 mg/dL (8.5-10.1) Phosphorus Level 4.5 mg/dL (2.6-4.7) Magnesium Level 1.9 mg/dL (1.8-2.4) Total Bilirubin 0.2 mg/dL (0.2-1.0) Aspartate Amino Transf (AST/SGOT) 13 U/L (15-37) Alanine Aminotransferase (ALT/SGPT) 23 U/L (14-59) Alkaline Phosphatase 83 U/L (46-116) Total Protein 5.1 g/dL (6.4-8.2) Albumin 2.4 g/dL (3.4-5.0) Albumin/Globulin Ratio 0.9 (1.0-1.7) Problem List Problems Medical Problems: (1) Anemia Status: Acute (2) Renal failure Status: Acute Assessment/Plan Resolving sbo Adv diet Problems: KENDY SANCHEZ MD May 06, 2017 08:30
--- NOTE | 2017-05-06 08:52 | PDOC ---
PULMONARY PROGRESS NOTES Subjective no sob, cough, pain. feels better Vitals Vital Signs Date Time Temp Pulse Resp B/P (MAP) Pulse Ox O2 Delivery O2 Flow Rate FiO2 05/06/17 08:29 74 134/75 05/06/17 07:42 99 Room Air 05/06/17 07:00 98.0 18 98.0 General: Alert, No acute distress Lungs: Other (deminished bs) Cardiovascular: S1, S2 Abdomen: Soft, Non-tender Neuro Exam: Alert Extremities: Other (trace edema) Skin: Warm Labs Laboratory Tests Test 05/04/17 14:00 05/05/17 04:35 05/06/17 04:37 Urine Collection Type Unknown Urine Color Yellow Urine Clarity Cloudy Urine pH 5.5 Urine Specific [place] 1.010 Urine Protein 34.4 mg/dL (Not Estab.) Urine Glucose (UA) Negative mg/dL (NEG) Urine Ketones (Stick) Negative mg/dL (NEG) Urine Blood Moderate (NEG) Urine Nitrite Positive (NEG) Urine Bilirubin Negative (NEG) Urine Urobilinogen Dipstick 0.2 mg/dL (0.2 mg/dL) Urine Leukocyte Esterase Large (NEG) Urine RBC 0 /HPF (0-2) Urine WBC Tntc /HPF (0-4) Urine Squamous Epithelial Cells Mod /LPF Urine Transitional Epithelial Cells Mod /LPF Urine Bacteria Many /HPF (0-FEW) Urine Random Sodium 88 mmol/L (Not Estab.) Urine Creatinine 50.0 mg/dL (Not Estab.) Urine Protein/Creatinine Ratio 688 mg/g creat (0-200) Sodium Level 143 mmol/L (136-145) 137 mmol/L (136-145) Potassium Level 3.4 mmol/L (3.5-5.1) 3.5 mmol/L (3.5-5.1) Chloride Level 111 mmol/L (98-107) 104 mmol/L (98-107) Carbon Dioxide Level 17 mmol/L (21-32) 21 mmol/L (21-32) Anion Gap 15 (6-14) 12 (6-14) Blood Urea Nitrogen 68 mg/dL (7-20) 62 mg/dL (7-20) Creatinine 4.2 mg/dL (0.6-1.0) 3.7 mg/dL (0.6-1.0) Estimated GFR (Cockcroft-Gault) 10.5 12.2 Glucose Level 88 mg/dL (70-99) 106 mg/dL (70-99) Calcium Level 7.2 mg/dL (8.5-10.1) 7.3 mg/dL (8.5-10.1) Phosphorus Level 4.9 mg/dL (2.6-4.7) 4.5 mg/dL (2.6-4.7) Magnesium Level 2.2 mg/dL (1.8-2.4) 1.9 mg/dL (1.8-2.4) Albumin 2.6 g/dL (3.4-5.0) 2.4 g/dL (3.4-5.0) White Blood Count 5.8 x10^3/uL (4.0-11.0) Red Blood Count 2.43 x10^6/uL (3.50-5.40) Hemoglobin 6.9 g/dL (12.0-15.5) Hematocrit 21.1 % (36.0-47.0) Mean Corpuscular Volume 87 fL (79-100) Mean Corpuscular Hemoglobin 29 pg (25-35) Mean Corpuscular Hemoglobin Concent 33 g/dL (31-37) Red Cell Distribution Width 16.1 % (11.5-14.5) Platelet Count 84 x10^3/uL (140-400) Neutrophils (%) (Auto) 69 % (31-73) Lymphocytes (%) (Auto) 20 % (24-48) Monocytes (%) (Auto) 10 % (0-9) Eosinophils (%) (Auto) 1 % (0-3) Basophils (%) (Auto) 0 % (0-3) Neutrophils # (Auto) 4.0 x10^3uL (1.8-7.7) Lymphocytes # (Auto) 1.2 x10^3/uL (1.0-4.8) Monocytes # (Auto) 0.6 x10^3/uL (0.0-1.1) Eosinophils # (Auto) 0.0 x10^3/uL (0.0-0.7) Basophils # (Auto) 0.0 x10^3/uL (0.0-0.2) BUN/Creatinine Ratio 17 (6-20) Total Bilirubin 0.2 mg/dL (0.2-1.0) Aspartate Amino Transf (AST/SGOT) 13 U/L (15-37) Alanine Aminotransferase (ALT/SGPT) 23 U/L (14-59) Alkaline Phosphatase 83 U/L (46-116) Total Protein 5.1 g/dL (6.4-8.2) Albumin/Globulin Ratio 0.9 (1.0-1.7) Laboratory Tests Test 05/06/17 04:37 White Blood Count 5.8 x10^3/uL (4.0-11.0) Red Blood Count 2.43 x10^6/uL (3.50-5.40) Hemoglobin 6.9 g/dL (12.0-15.5) Hematocrit 21.1 % (36.0-47.0) Mean Corpuscular Volume 87 fL (79-100) Mean Corpuscular Hemoglobin 29 pg (25-35) Mean Corpuscular Hemoglobin Concent 33 g/dL (31-37) Red Cell Distribution Width 16.1 % (11.5-14.5) Platelet Count 84 x10^3/uL (140-400) Neutrophils (%) (Auto) 69 % (31-73) Lymphocytes (%) (Auto) 20 % (24-48) Monocytes (%) (Auto) 10 % (0-9) Eosinophils (%) (Auto) 1 % (0-3) Basophils (%) (Auto) 0 % (0-3) Neutrophils # (Auto) 4.0 x10^3uL (1.8-7.7) Lymphocytes # (Auto) 1.2 x10^3/uL (1.0-4.8) Monocytes # (Auto) 0.6 x10^3/uL (0.0-1.1) Eosinophils # (Auto) 0.0 x10^3/uL (0.0-0.7) Basophils # (Auto) 0.0 x10^3/uL (0.0-0.2) Sodium Level 137 mmol/L (136-145) Potassium Level 3.5 mmol/L (3.5-5.1) Chloride Level 104 mmol/L (98-107) Carbon Dioxide Level 21 mmol/L (21-32) Anion Gap 12 (6-14) Blood Urea Nitrogen 62 mg/dL (7-20) Creatinine 3.7 mg/dL (0.6-1.0) Estimated GFR (Cockcroft-Gault) 12.2 BUN/Creatinine Ratio 17 (6-20) Glucose Level 106 mg/dL (70-99) Calcium Level 7.3 mg/dL (8.5-10.1) Phosphorus Level 4.5 mg/dL (2.6-4.7) Magnesium Level 1.9 mg/dL (1.8-2.4) Total Bilirubin 0.2 mg/dL (0.2-1.0) Aspartate Amino Transf (AST/SGOT) 13 U/L (15-37) Alanine Aminotransferase (ALT/SGPT) 23 U/L (14-59) Alkaline Phosphatase 83 U/L (46-116) Total Protein 5.1 g/dL (6.4-8.2) Albumin 2.4 g/dL (3.4-5.0) Albumin/Globulin Ratio 0.9 (1.0-1.7) Medications Active Scripts Medications Dose Route/Sig Max Daily Dose Days Date Category Vitamin D2 (Ergocalciferol (Vitamin D2)) 50,000 Unit Capsule 50,000 Unit PO WEEKLY 12/07/16 Rx Folbic Tablet (Cyanocobalamin/Fa/Pyridoxine) 1 Each Tablet 1 Tab PO DAILY 12/07/16 Rx Calcitriol 0.25 Mcg Capsule 0.25 Mcg PO DAILY 12/07/16 Rx Flovent 50MCG Diskus (Fluticasone Propionate) 50 Mcg Disk.w.dev 50 Mcg IH BID 09/04/13 Reported Imodium A-D (Loperamide Hcl) 1 Mg/7.5 Ml Liquid 2 Mg PO DAILY08 09/04/13 Reported Norvasc (Amlodipine Besylate) 10 Mg Tablet 10 Mg PO DAILY08 09/04/13 Reported Impression . 1. Abnormal arterial blood gases secondary to acute metabolic acidosis with respiratory compensation. 2. Increased anion gap metabolic acidosis secondary to acute kidney injury, most likely from dehydration. Her lactic acid is normal. 3. History of asthma as a child. She did outgrow it, but then in last few months her asthma has been under suboptimal control. She would benefit from maintenance steroid inhaler and in hospital we will provide her Pulmicort nebulizer treatment. 4. Clear chest x-ray. 5. Acute renal failure, suspect caused by dehydration. I would recommend aggressive hydration. 6. Small-bowel obstruction. Being followed by Surgery. Plan . 1. From pulmonary standpoint, her breathing seems to be stable. cont nebulizer treatments with Pulmicort, at discharge we would place her on Flovent. 2. Aggressive volume resuscitation. 3. Monitor renal function. 4. Monitor hemoglobin closely, s/p prbc 05/04 5. Follow Renal and Surgery recommendations. 6. Follow anion gap. 7. Continue with bicarbonate. 8. IS 9. increase activity Discussed with pt, RN. NATTY ALVARADO MD May 06, 2017 08:52
--- NOTE | 2017-05-06 11:28 | PDOC ---
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 acute metabolic gap acidosis Small-bowel obstruction. surgical following Prior Hx of colon cancer. Thrombocytopenia. History of Present Illness History of Present Illness she feels about the same better PO intake will again transfuse, 1 u PRBC today, last 2 days ago, hgb about the same renal following acidosis, SANGITA on CKD Vitals Vitals Vital Signs Date Time Temp Pulse Resp B/P (MAP) Pulse Ox O2 Delivery O2 Flow Rate FiO2 05/06/17 11:00 98.0 75 18 112/57 (75) 95 Room Air 98.0 Physical Exam General: Alert, Oriented X3, Cooperative, No acute distress Heart: Normal S1, Normal S2 Lungs: Other (deminished bs) Abdomen: Normal bowel sounds, Soft, No tenderness Skin: No rashes Labs LABS Laboratory Tests Test 05/06/17 04:37 White Blood Count 5.8 x10^3/uL (4.0-11.0) Red Blood Count 2.43 x10^6/uL (3.50-5.40) Hemoglobin 6.9 g/dL (12.0-15.5) Hematocrit 21.1 % (36.0-47.0) Mean Corpuscular Volume 87 fL (79-100) Mean Corpuscular Hemoglobin 29 pg (25-35) Mean Corpuscular Hemoglobin Concent 33 g/dL (31-37) Red Cell Distribution Width 16.1 % (11.5-14.5) Platelet Count 84 x10^3/uL (140-400) Neutrophils (%) (Auto) 69 % (31-73) Lymphocytes (%) (Auto) 20 % (24-48) Monocytes (%) (Auto) 10 % (0-9) Eosinophils (%) (Auto) 1 % (0-3) Basophils (%) (Auto) 0 % (0-3) Neutrophils # (Auto) 4.0 x10^3uL (1.8-7.7) Lymphocytes # (Auto) 1.2 x10^3/uL (1.0-4.8) Monocytes # (Auto) 0.6 x10^3/uL (0.0-1.1) Eosinophils # (Auto) 0.0 x10^3/uL (0.0-0.7) Basophils # (Auto) 0.0 x10^3/uL (0.0-0.2) Sodium Level 137 mmol/L (136-145) Potassium Level 3.5 mmol/L (3.5-5.1) Chloride Level 104 mmol/L (98-107) Carbon Dioxide Level 21 mmol/L (21-32) Anion Gap 12 (6-14) Blood Urea Nitrogen 62 mg/dL (7-20) Creatinine 3.7 mg/dL (0.6-1.0) Estimated GFR (Cockcroft-Gault) 12.2 BUN/Creatinine Ratio 17 (6-20) Glucose Level 106 mg/dL (70-99) Calcium Level 7.3 mg/dL (8.5-10.1) Phosphorus Level 4.5 mg/dL (2.6-4.7) Magnesium Level 1.9 mg/dL (1.8-2.4) Total Bilirubin 0.2 mg/dL (0.2-1.0) Aspartate Amino Transf (AST/SGOT) 13 U/L (15-37) Alanine Aminotransferase (ALT/SGPT) 23 U/L (14-59) Alkaline Phosphatase 83 U/L (46-116) Total Protein 5.1 g/dL (6.4-8.2) Albumin 2.4 g/dL (3.4-5.0) Albumin/Globulin Ratio 0.9 (1.0-1.7) Review of Systems Review of Systems lethargic and weak no event no n,.v.d Assessment and Plan Assessmemt and Plan Problems Medical Problems: (1) Anemia Status: Acute (2) Renal failure Status: Acute Problems: Comment Review of Relevant I have reviewed the following items yoel (where applicable) has been applied. Labs Laboratory Tests Test 05/04/17 14:00 05/05/17 04:35 05/06/17 04:37 Urine Collection Type Unknown Urine Color Yellow Urine Clarity Cloudy Urine pH 5.5 Urine Specific [place] 1.010 Urine Protein 34.4 mg/dL (Not Estab.) Urine Glucose (UA) Negative mg/dL (NEG) Urine Ketones (Stick) Negative mg/dL (NEG) Urine Blood Moderate (NEG) Urine Nitrite Positive (NEG) Urine Bilirubin Negative (NEG) Urine Urobilinogen Dipstick 0.2 mg/dL (0.2 mg/dL) Urine Leukocyte Esterase Large (NEG) Urine RBC 0 /HPF (0-2) Urine WBC Tntc /HPF (0-4) Urine Squamous Epithelial Cells Mod /LPF Urine Transitional Epithelial Cells Mod /LPF Urine Bacteria Many /HPF (0-FEW) Urine Random Sodium 88 mmol/L (Not Estab.) Urine Creatinine 50.0 mg/dL (Not Estab.) Urine Protein/Creatinine Ratio 688 mg/g creat (0-200) Sodium Level 143 mmol/L (136-145) 137 mmol/L (136-145) Potassium Level 3.4 mmol/L (3.5-5.1) 3.5 mmol/L (3.5-5.1) Chloride Level 111 mmol/L (98-107) 104 mmol/L (98-107) Carbon Dioxide Level 17 mmol/L (21-32) 21 mmol/L (21-32) Anion Gap 15 (6-14) 12 (6-14) Blood Urea Nitrogen 68 mg/dL (7-20) 62 mg/dL (7-20) Creatinine 4.2 mg/dL (0.6-1.0) 3.7 mg/dL (0.6-1.0) Estimated GFR (Cockcroft-Gault) 10.5 12.2 Glucose Level 88 mg/dL (70-99) 106 mg/dL (70-99) Calcium Level 7.2 mg/dL (8.5-10.1) 7.3 mg/dL (8.5-10.1) Phosphorus Level 4.9 mg/dL (2.6-4.7) 4.5 mg/dL (2.6-4.7) Magnesium Level 2.2 mg/dL (1.8-2.4) 1.9 mg/dL (1.8-2.4) Albumin 2.6 g/dL (3.4-5.0) 2.4 g/dL (3.4-5.0) White Blood Count 5.8 x10^3/uL (4.0-11.0) Red Blood Count 2.43 x10^6/uL (3.50-5.40) Hemoglobin 6.9 g/dL (12.0-15.5) Hematocrit 21.1 % (36.0-47.0) Mean Corpuscular Volume 87 fL (79-100) Mean Corpuscular Hemoglobin 29 pg (25-35) Mean Corpuscular Hemoglobin Concent 33 g/dL (31-37) Red Cell Distribution Width 16.1 % (11.5-14.5) Platelet Count 84 x10^3/uL (140-400) Neutrophils (%) (Auto) 69 % (31-73) Lymphocytes (%) (Auto) 20 % (24-48) Monocytes (%) (Auto) 10 % (0-9) Eosinophils (%) (Auto) 1 % (0-3) Basophils (%) (Auto) 0 % (0-3) Neutrophils # (Auto) 4.0 x10^3uL (1.8-7.7) Lymphocytes # (Auto) 1.2 x10^3/uL (1.0-4.8) Monocytes # (Auto) 0.6 x10^3/uL (0.0-1.1) Eosinophils # (Auto) 0.0 x10^3/uL (0.0-0.7) Basophils # (Auto) 0.0 x10^3/uL (0.0-0.2) BUN/Creatinine Ratio 17 (6-20) Total Bilirubin 0.2 mg/dL (0.2-1.0) Aspartate Amino Transf (AST/SGOT) 13 U/L (15-37) Alanine Aminotransferase (ALT/SGPT) 23 U/L (14-59) Alkaline Phosphatase 83 U/L (46-116) Total Protein 5.1 g/dL (6.4-8.2) Albumin/Globulin Ratio 0.9 (1.0-1.7) Laboratory Tests Test 05/06/17 04:37 White Blood Count 5.8 x10^3/uL (4.0-11.0) Red Blood Count 2.43 x10^6/uL (3.50-5.40) Hemoglobin 6.9 g/dL (12.0-15.5) Hematocrit 21.1 % (36.0-47.0) Mean Corpuscular Volume 87 fL (79-100) Mean Corpuscular Hemoglobin 29 pg (25-35) Mean Corpuscular Hemoglobin Concent 33 g/dL (31-37) Red Cell Distribution Width 16.1 % (11.5-14.5) Platelet Count 84 x10^3/uL (140-400) Neutrophils (%) (Auto) 69 % (31-73) Lymphocytes (%) (Auto) 20 % (24-48) Monocytes (%) (Auto) 10 % (0-9) Eosinophils (%) (Auto) 1 % (0-3) Basophils (%) (Auto) 0 % (0-3) Neutrophils # (Auto) 4.0 x10^3uL (1.8-7.7) Lymphocytes # (Auto) 1.2 x10^3/uL (1.0-4.8) Monocytes # (Auto) 0.6 x10^3/uL (0.0-1.1) Eosinophils # (Auto) 0.0 x10^3/uL (0.0-0.7) Basophils # (Auto) 0.0 x10^3/uL (0.0-0.2) Sodium Level 137 mmol/L (136-145) Potassium Level 3.5 mmol/L (3.5-5.1) Chloride Level 104 mmol/L (98-107) Carbon Dioxide Level 21 mmol/L (21-32) Anion Gap 12 (6-14) Blood Urea Nitrogen 62 mg/dL (7-20) Creatinine 3.7 mg/dL (0.6-1.0) Estimated GFR (Cockcroft-Gault) 12.2 BUN/Creatinine Ratio 17 (6-20) Glucose Level 106 mg/dL (70-99) Calcium Level 7.3 mg/dL (8.5-10.1) Phosphorus Level 4.5 mg/dL (2.6-4.7) Magnesium Level 1.9 mg/dL (1.8-2.4) Total Bilirubin 0.2 mg/dL (0.2-1.0) Aspartate Amino Transf (AST/SGOT) 13 U/L (15-37) Alanine Aminotransferase (ALT/SGPT) 23 U/L (14-59) Alkaline Phosphatase 83 U/L (46-116) Total Protein 5.1 g/dL (6.4-8.2) Albumin 2.4 g/dL (3.4-5.0) Albumin/Globulin Ratio 0.9 (1.0-1.7) Microbiology 05/04/17 Urine Culture - Preliminary, Resulted 05/04/17 Urine Culture Result 1 (OLAMIDE) - Preliminary, Resulted Medications Current Medications Ondansetron HCl (Zofran) 4 mg 1X ONCE IV Last administered on 05/02/17 23:27 ; Start 05/02/17 at 23:15; Stop 05/02/17 at 23:16; Status DC Multi-Ingredient Mouthwash/Gargle (Gi Cocktail Single Dose) 15 ml 1X ONCE SWSW Last administered on 05/02/17 23:27; Start 05/02/17 at 23:15; Stop 05/02/17 at 23:16; Status DC Sodium Bicarbonate 100 meq 1X ONCE IV Last administered on 05/03/17 01:17; Start 05/03/17 at 01:15; Stop 05/03/17 at 01:16; Status DC Ondansetron HCl (Zofran) 4 mg PRN Q8HRS PRN IV NAUSEA/VOMITING; Start 05/03/17 at 01:15; Stop 05/04/17 at 01:14; Status DC Morphine Sulfate 2 mg PRN Q2HR PRN IV PAIN; Start 05/03/17 at 01:15; Stop 05/04 at 01:14; Status DC Sodium Chloride 1,000 ml @ 125 mls/hr 1X ONCE IV Last administered on 04:45; Start 05/03/17 at 04:30; Stop 05/04/17 at 10:02; Status DC Magnesium Sulfate/ Dextrose 50 ml @ 25 mls/hr PRN DAILY PRN IV for Mag < 1.7 on am labs; Start 05/03/17 at 09:15 Sodium Bicarbonate 75 meq/Sodium Chloride 1,075 ml @ 75 mls/hr [id number] IV Last administered on 05/03/17 17:17; Start 05/03/17 at 10:00; Stop 05/03/17 at 21:50; Status DC Budesonide (Pulmicort) 0.5 mg RTBID NEB Last administered on 05/06/17 07:41; Start 05/03/17 at 12:00 Sodium Chloride 1,000 ml @ 250 mls/hr 1X ONCE IV Last administered on 13:17; Start 05/03/17 at 12:30; Stop 05/03/17 at 16:44; Status DC Amlodipine Besylate (Norvasc) 10 mg DAILY08 PO Last administered on 05/06/17 08:29; Start 05/03/17 at 15:00 Calcitriol (Rocaltrol) 0.25 mcg DAILY PO Last administered on 05/06/17 08:29; Start 05/03/17 at 15:00 Vitamin B Complex (Folbic Tablet) 1 tab DAILY PO Last administered on 08:29; Start 05/03/17 at 15:00 Ergocalciferol (Vitamin D2) 50,000 unit WEEKLY PO ; Start 05/10/17 at 09:00 Non-Formulary Medication 50 mcg BID IH ; Start 05/03/17 at 21:00; Stop 05/03/17 at 21:00; Status DC Loperamide HCl (Imodium) 2 mg DAILY08 PO Last administered on 05/05/17 09:30; Start 05/03/17 at 15:00; Stop 05/05/17 at 10:49; Status DC Sodium Chloride 1,000 ml @ 100 mls/hr Q10H IV Last administered on 05/04/17 06:01; Start 05/03/17 at 21:30; Stop 05/04/17 at 07:04; Status DC Sodium Chloride 1,000 ml @ 100 mls/hr Q10H IV Last administered on 05/04/17 07:10; Start 05/04/17 at 07:30; Stop 05/04/17 at 10:02; Status DC Sodium Bicarbonate 75 meq/Potassium Acetate 20 meq/ Dextrose 1,085 ml @ 50 mls/ hr [id number] IV Last administered on 05/05/17 13:25; Start 05/04/17 at 10:00 Darbepoetin Jono (Aranesp) 60 mcg WEEKLYHS SQ Last administered on 05/04/17 20 :51; Start 05/04/17 at 21:00 Lidocaine/Sodium Bicarbonate (Buffered Lidocaine 1%) 20 ml STK-MED ONCE IJ ; Start 05/04/17 at 10:23; Stop 05/04/17 at 10:24; Status DC Heparin Sodium (Porcine) (Heparin Sodium) 10,000 unit STK-MED ONCE .ROUTE ; Start 05/04/17 at 10:23; Stop 05/04/17 at 10:24; Status DC Heparin Sodium/ Sodium Chloride 500 ml @ As Directed STK-MED ONCE .ROUTE ; Start 05/04/17 at 10:23; Stop 05/04/17 at 10:24; Status DC Lidocaine/Sodium Bicarbonate (Buffered Lidocaine 1%) 20 ml 1X ONCE IJ Last administered on 05/04/17 11:22; Start 05/04/17 at 11:00; Stop 05/04/17 at 11:02 ; Status DC Heparin Sodium/ Sodium Chloride 1,000 unit 1X ONCE IV Last administered on 11:23; Start 05/04/17 at 11:00; Stop 05/04/17 at 11:02; Status DC Heparin Sodium (Porcine) (Heparin Sodium) 2,600 unit 1X ONCE INT CAT Last administered on 05/04/17 11:22; Start 05/04/17 at 11:00; Stop 05/04/17 at 11:02 ; Status DC Acetaminophen (Tylenol) 650 mg PRN Q6HRS PRN PO MILD PAIN Last administered on 05/04/17 18:10; Start 05/04/17 at 18:15 Tramadol HCl (Ultram) 50 mg PRN Q6HRS PRN PO PAIN Last administered on 23:55; Start 05/04/17 at 18:15 Morphine Sulfate 2 mg PRN Q4HRS PRN IV PAIN; Start 05/04/17 at 18:15 Magnesium Sulfate/ Dextrose 50 ml @ 25 mls/hr 1X ONCE IV Last administered on 05/05/17 02:52; Start 05/05/17 at 02:45; Stop 05/05/17 at 04:44; Status DC Albuterol/ Ipratropium (Duoneb) 3 ml RTQID NEB Last administered on 05/06/17 07:41; Start 05/05/17 at 09:30 Amino Acids/ Glycerin/ Electrolytes 1,000 ml @ 80 mls/hr [id number] IV Last administered on 05/05/17 23:52; Start 05/05/17 at 11:30 Active Scripts Active Vitamin D2 (Ergocalciferol (Vitamin D2)) 50,000 Unit Capsule 50,000 Unit PO WEEKLY Folbic Tablet (Cyanocobalamin/Fa/Pyridoxine) 1 Each Tablet 1 Tab PO DAILY Calcitriol 0.25 Mcg Capsule 0.25 Mcg PO DAILY Reported Flovent 50MCG Diskus (Fluticasone Propionate) 50 Mcg Disk.w.dev 50 Mcg IH BID Imodium A-D (Loperamide Hcl) 1 Mg/7.5 Ml Liquid 2 Mg PO DAILY08 Norvasc (Amlodipine Besylate) 10 Mg Tablet 10 Mg PO DAILY08 Vitals/I & O Vital Sign - Last 24 Hours 05/05/17 05/05/17 05/05/17 05/05/17 11:38 14:43 15:00 15:00 Temp 97.8 97.8 Pulse 61 Resp 18 B/P (MAP) 108/69 (82) Pulse Ox 98 99 O2 Delivery Room Air Room Air Room Air Room Air 05/05/17 05/05/17 05/05/17 05/05/17 18:27 19:00 20:00 23:00 Temp 98.1 98.1 Pulse 83 69 Resp 17 16 B/P (MAP) 113/65 (81) 118/73 (88) Pulse Ox 99 98 99 O2 Delivery Room Air Room Air Room Air Room Air 05/05/17 05/06/17 05/06/17 05/06/17 23:55 00:55 03:00 07:00 Temp 98.6 98.0 98.6 98.0 Pulse 79 74 Resp 17 18 B/P (MAP) 111/62 (78) 134/75 (94) Pulse Ox 99 99 97 94 O2 Delivery Room Air Room Air Room Air Room Air 05/06/17 05/06/17 05/06/17 05/06/17 07:42 08:00 08:29 11:00 Temp 98.0 98.0 Pulse 74 75 Resp 18 B/P (MAP) 134/75 112/57 (75) Pulse Ox 99 95 O2 Delivery Room Air Room Air Room Air Intake and Output 05/06/17 05/06/17 05/07/17 15:00 23:00 07:00 Intake Total 430 ml Balance 430 ml JONY PRIEST MD May 06, 2017 11:28
[2017-05-06] MEDS: AMINO AC 3%/ELECTROLYTE/GLYCER 1,000 ML IV SCH (12:14)
--- NOTE | 2017-05-06 14:52 | PDOC ---
Renal-Progress Notes Subjective Notes Notes STILL NOT MUCH APPETITE History of Present Illness Hx of present illness STABLE Vitals Vitals Vital Signs Date Time Temp Pulse Resp B/P (MAP) Pulse Ox O2 Delivery O2 Flow Rate FiO2 05/06/17 11:41 Room Air 05/06/17 11:00 98.0 75 18 112/57 (75) 95 98.0 Weight Weight [ ] I.O. Intake and Output Intake and Output 05/07/17 07:00 Intake Total 730 ml Balance 730 ml Intake Oral 730 ml Labs Labs Laboratory Tests Test 05/06/17 04:37 White Blood Count 5.8 x10^3/uL (4.0-11.0) Red Blood Count 2.43 x10^6/uL (3.50-5.40) Hemoglobin 6.9 g/dL (12.0-15.5) Hematocrit 21.1 % (36.0-47.0) Mean Corpuscular Volume 87 fL (79-100) Mean Corpuscular Hemoglobin 29 pg (25-35) Mean Corpuscular Hemoglobin Concent 33 g/dL (31-37) Red Cell Distribution Width 16.1 % (11.5-14.5) Platelet Count 84 x10^3/uL (140-400) Neutrophils (%) (Auto) 69 % (31-73) Lymphocytes (%) (Auto) 20 % (24-48) Monocytes (%) (Auto) 10 % (0-9) Eosinophils (%) (Auto) 1 % (0-3) Basophils (%) (Auto) 0 % (0-3) Neutrophils # (Auto) 4.0 x10^3uL (1.8-7.7) Lymphocytes # (Auto) 1.2 x10^3/uL (1.0-4.8) Monocytes # (Auto) 0.6 x10^3/uL (0.0-1.1) Eosinophils # (Auto) 0.0 x10^3/uL (0.0-0.7) Basophils # (Auto) 0.0 x10^3/uL (0.0-0.2) Sodium Level 137 mmol/L (136-145) Potassium Level 3.5 mmol/L (3.5-5.1) Chloride Level 104 mmol/L (98-107) Carbon Dioxide Level 21 mmol/L (21-32) Anion Gap 12 (6-14) Blood Urea Nitrogen 62 mg/dL (7-20) Creatinine 3.7 mg/dL (0.6-1.0) Estimated GFR (Cockcroft-Gault) 12.2 BUN/Creatinine Ratio 17 (6-20) Glucose Level 106 mg/dL (70-99) Calcium Level 7.3 mg/dL (8.5-10.1) Phosphorus Level 4.5 mg/dL (2.6-4.7) Magnesium Level 1.9 mg/dL (1.8-2.4) Total Bilirubin 0.2 mg/dL (0.2-1.0) Aspartate Amino Transf (AST/SGOT) 13 U/L (15-37) Alanine Aminotransferase (ALT/SGPT) 23 U/L (14-59) Alkaline Phosphatase 83 U/L (46-116) Total Protein 5.1 g/dL (6.4-8.2) Albumin 2.4 g/dL (3.4-5.0) Albumin/Globulin Ratio 0.9 (1.0-1.7) Micro Micro Microbiology 05/04/17 Urine Culture - Final, Complete 05/04/17 Urine Culture Result 1 (OLAMIDE) - Final, Complete 05/04/17 Antimicrobic Susceptibility - Final, Complete Review of Systems Constitutional: yes: malaise, weakness, alert, oriented Ears/Nose/Throat: Yes: no symptom reported Eyes: Yes: no symptom reported Cardiovascular: Yes no symptom reported Gastrointestional: Yes: nausea Genitourinary: Yes: no symptom reported Musculoskeletal: Yes: muscle stiffness Skin: Yes no symptom reported Psychiatric/Neurological: Yes: no symptom reported Endocrine: Yes: no symptom reported Hematologic/Lymphatic: Yes: no symptom reported Physical Exam General Appearance: no apparent distress Skin: warm Respiratory: decreased breath sounds Heart: S1S2, RRR Abdomen: soft, other (HYPOACTIVE) Extremities: pulses present, no edema Neurology: alert Assessment Assessment IMP CKD 4 WITH CR OF ABOUT 2.5 AT BASELINE KEYON[place] WITH CR OF ABOUT 5.0 AND NOW DOWN TO 3.7 ANEMIA SBO VS ILEUS PLAN CONT WITH SCARLET PRBC NEEDED MAINTAIN TEMP HD CATHETER ENC PO TOLERATED CONT IVF'S CONT PPN FOR NOW ENC PO LABS IN AM LIONEL BRAGA MD May 06, 2017 14:52
[2017-05-06] MEDS: traMADol 50 MG TABLET PO PRN (19:16)
[2017-05-06] MEDS: SODIUM BICARBONATE IV SCH (19:18)
[2017-05-06] MEDS: POTASSIUM ACETATE IV SCH (19:18)
[2017-05-06] MEDS: DEXTROSE 5% IV SCH (19:18)
[2017-05-07] MEDS: AMINO AC 3%/ELECTROLYTE/GLYCER 1,000 ML IV SCH ×2 (02:42→13:39)
[2017-05-07 03:00] VITALS: BP 112/59
[2017-05-07 06:04] LABS: ALBUMIN 2.5 g/dL (3.4-5.0); CALCIUM 7.7 mg/dL (8.5-10.1); CREATININE 3.4 mg/dL (0.6-1.0); GFR 13.4; PHOSPHORUS 3.5 mg/dL (2.6-4.7); POTASSIUM 3.8 mmol/L (3.5-5.1)
[2017-05-07 07:00] VITALS: BP 116/65
[2017-05-07] MEDS: IPRATRPIUM/ALBUTEROL 0.5/2.5MG 3 ML NEBU. NEB SCH ×4 (07:36→20:07)
[2017-05-07] MEDS: BUDESONIDE 0.5 MG/2 ML NEBU. NEB SCH ×2 (07:36→20:07)
--- NOTE | 2017-05-07 09:05 | PDOC ---
PROGRESS NOTES Subjective Subjective c/c - f/u of Small-bowel obstruction Objective Objective Vital Signs Date Time Temp Pulse Resp B/P (MAP) Pulse Ox O2 Delivery O2 Flow Rate FiO2 05/07/17 07:37 97 Room Air 05/07/17 07:00 97.9 77 18 116/65 (82) 97.9 Intake and Output 05/08/17 07:00 Intake Total 300 ml Balance 300 ml Intake Oral 300 ml Physical Exam General: Alert, Oriented X3, No acute distress Neuro: Normal speech Psych/Mental Status: Mental status NL Assessment Assessment Problems Medical Problems: (1) Anemia Status: Acute (2) Renal failure Status: Acute IMPRESSION AND PLAN: 1. Small-bowel obstruction. Appreciate surgical consultation and management. CT scan does not reveal any evidence of recurrent colon cancer. Continue management of obstruction by surgery. CEA pending. 2. Anemia due to CKD. She has history of B12 deficiency. B12 levels are now normal. Agree to monitor Hb and transfuse as needed. 3. Thrombocytopenia. Reactive, B12 is now normal. h/o pancytopenia due to B12 def in past - bone marrow bx 08/06/16: Path report: The constellation of peripheral blood, bone marrow, and clinical laboratory findings are compatible with B12 deficiency. 4. Colon cancer in the past per pt. I obtained pathology records from [facility] since 1999 and there is no evidence of cancer. She mentions that the surgery was done at [facility] for cancer. I will also check a CEA level. Comment Review of Relevant I have reviewed the following items yoel (where applicable) has been applied. Labs Laboratory Tests Test 05/06/17 04:37 05/07/17 05:00 White Blood Count 5.8 x10^3/uL (4.0-11.0) Red Blood Count 2.43 x10^6/uL (3.50-5.40) Hemoglobin 6.9 g/dL (12.0-15.5) Hematocrit 21.1 % (36.0-47.0) Mean Corpuscular Volume 87 fL (79-100) Mean Corpuscular Hemoglobin 29 pg (25-35) Mean Corpuscular Hemoglobin Concent 33 g/dL (31-37) Red Cell Distribution Width 16.1 % (11.5-14.5) Platelet Count 84 x10^3/uL (140-400) Neutrophils (%) (Auto) 69 % (31-73) Lymphocytes (%) (Auto) 20 % (24-48) Monocytes (%) (Auto) 10 % (0-9) Eosinophils (%) (Auto) 1 % (0-3) Basophils (%) (Auto) 0 % (0-3) Neutrophils # (Auto) 4.0 x10^3uL (1.8-7.7) Lymphocytes # (Auto) 1.2 x10^3/uL (1.0-4.8) Monocytes # (Auto) 0.6 x10^3/uL (0.0-1.1) Eosinophils # (Auto) 0.0 x10^3/uL (0.0-0.7) Basophils # (Auto) 0.0 x10^3/uL (0.0-0.2) Sodium Level 137 mmol/L (136-145) 135 mmol/L (136-145) Potassium Level 3.5 mmol/L (3.5-5.1) 3.8 mmol/L (3.5-5.1) Chloride Level 104 mmol/L (98-107) 103 mmol/L (98-107) Carbon Dioxide Level 21 mmol/L (21-32) 23 mmol/L (21-32) Anion Gap 12 (6-14) 9 (6-14) Blood Urea Nitrogen 62 mg/dL (7-20) 62 mg/dL (7-20) Creatinine 3.7 mg/dL (0.6-1.0) 3.4 mg/dL (0.6-1.0) Estimated GFR (Cockcroft-Gault) 12.2 13.4 BUN/Creatinine Ratio 17 (6-20) Glucose Level 106 mg/dL (70-99) 90 mg/dL (70-99) Calcium Level 7.3 mg/dL (8.5-10.1) 7.7 mg/dL (8.5-10.1) Phosphorus Level 4.5 mg/dL (2.6-4.7) 3.5 mg/dL (2.6-4.7) Magnesium Level 1.9 mg/dL (1.8-2.4) 1.8 mg/dL (1.8-2.4) Total Bilirubin 0.2 mg/dL (0.2-1.0) Aspartate Amino Transf (AST/SGOT) 13 U/L (15-37) Alanine Aminotransferase (ALT/SGPT) 23 U/L (14-59) Alkaline Phosphatase 83 U/L (46-116) Total Protein 5.1 g/dL (6.4-8.2) Albumin 2.4 g/dL (3.4-5.0) 2.5 g/dL (3.4-5.0) Albumin/Globulin Ratio 0.9 (1.0-1.7) Laboratory Tests Test 05/07/17 05:00 Sodium Level 135 mmol/L (136-145) Potassium Level 3.8 mmol/L (3.5-5.1) Chloride Level 103 mmol/L (98-107) Carbon Dioxide Level 23 mmol/L (21-32) Anion Gap 9 (6-14) Blood Urea Nitrogen 62 mg/dL (7-20) Creatinine 3.4 mg/dL (0.6-1.0) Estimated GFR (Cockcroft-Gault) 13.4 Glucose Level 90 mg/dL (70-99) Calcium Level 7.7 mg/dL (8.5-10.1) Phosphorus Level 3.5 mg/dL (2.6-4.7) Magnesium Level 1.8 mg/dL (1.8-2.4) Albumin 2.5 g/dL (3.4-5.0) Microbiology 05/04/17 Urine Culture - Final, Complete 05/04/17 Urine Culture Result 1 (OLAMIDE) - Final, Complete 05/04/17 Antimicrobic Susceptibility - Final, Complete Medications Current Medications Ondansetron HCl (Zofran) 4 mg 1X ONCE IV Last administered on 05/02/17 23:27 ; Start 05/02/17 at 23:15; Stop 05/02/17 at 23:16; Status DC Multi-Ingredient Mouthwash/Gargle (Gi Cocktail Single Dose) 15 ml 1X ONCE SWSW Last administered on 05/02/17 23:27; Start 05/02/17 at 23:15; Stop 05/02/17 at 23:16; Status DC Sodium Bicarbonate 100 meq 1X ONCE IV Last administered on 05/03/17 01:17; Start 05/03/17 at 01:15; Stop 05/03/17 at 01:16; Status DC Ondansetron HCl (Zofran) 4 mg PRN Q8HRS PRN IV NAUSEA/VOMITING; Start 05/03/17 at 01:15; Stop 05/04/17 at 01:14; Status DC Morphine Sulfate 2 mg PRN Q2HR PRN IV PAIN; Start 05/03/17 at 01:15; Stop 05/04 at 01:14; Status DC Sodium Chloride 1,000 ml @ 125 mls/hr 1X ONCE IV Last administered on 04:45; Start 05/03/17 at 04:30; Stop 05/04/17 at 10:02; Status DC Magnesium Sulfate/ Dextrose 50 ml @ 25 mls/hr PRN DAILY PRN IV for Mag < 1.7 on am labs; Start 05/03/17 at 09:15 Sodium Bicarbonate 75 meq/Sodium Chloride 1,075 ml @ 75 mls/hr [id number] IV Last administered on 05/03/17 17:17; Start 05/03/17 at 10:00; Stop 05/03/17 at 21:50; Status DC Budesonide (Pulmicort) 0.5 mg RTBID NEB Last administered on 05/07/17 07:36; Start 05/03/17 at 12:00 Sodium Chloride 1,000 ml @ 250 mls/hr 1X ONCE IV Last administered on 13:17; Start 05/03/17 at 12:30; Stop 05/03/17 at 16:44; Status DC Amlodipine Besylate (Norvasc) 10 mg DAILY08 PO Last administered on 05/06/17 08:29; Start 05/03/17 at 15:00 Calcitriol (Rocaltrol) 0.25 mcg DAILY PO Last administered on 05/06/17 08:29; Start 05/03/17 at 15:00 Vitamin B Complex (Folbic Tablet) 1 tab DAILY PO Last administered on 08:29; Start 05/03/17 at 15:00 Ergocalciferol (Vitamin D2) 50,000 unit WEEKLY PO ; Start 05/10/17 at 09:00 Non-Formulary Medication 50 mcg BID IH ; Start 05/03/17 at 21:00; Stop 05/03/17 at 21:00; Status DC Loperamide HCl (Imodium) 2 mg DAILY08 PO Last administered on 05/05/17 09:30; Start 05/03/17 at 15:00; Stop 05/05/17 at 10:49; Status DC Sodium Chloride 1,000 ml @ 100 mls/hr Q10H IV Last administered on 05/04/17 06:01; Start 05/03/17 at 21:30; Stop 05/04/17 at 07:04; Status DC Sodium Chloride 1,000 ml @ 100 mls/hr Q10H IV Last administered on 05/04/17 07:10; Start 05/04/17 at 07:30; Stop 05/04/17 at 10:02; Status DC Sodium Bicarbonate 75 meq/Potassium Acetate 20 meq/ Dextrose 1,085 ml @ 50 mls/ hr [id number] IV Last administered on 05/06/17 19:18; Start 05/04/17 at 10:00 Darbepoetin Jono (Aranesp) 60 mcg WEEKLYHS SQ Last administered on 05/04/17 20 :51; Start 05/04/17 at 21:00 Lidocaine/Sodium Bicarbonate (Buffered Lidocaine 1%) 20 ml STK-MED ONCE IJ ; Start 05/04/17 at 10:23; Stop 05/04/17 at 10:24; Status DC Heparin Sodium (Porcine) (Heparin Sodium) 10,000 unit STK-MED ONCE .ROUTE ; Start 05/04/17 at 10:23; Stop 05/04/17 at 10:24; Status DC Heparin Sodium/ Sodium Chloride 500 ml @ As Directed STK-MED ONCE .ROUTE ; Start 05/04/17 at 10:23; Stop 05/04/17 at 10:24; Status DC Lidocaine/Sodium Bicarbonate (Buffered Lidocaine 1%) 20 ml 1X ONCE IJ Last administered on 05/04/17 11:22; Start 05/04/17 at 11:00; Stop 05/04/17 at 11:02 ; Status DC Heparin Sodium/ Sodium Chloride 1,000 unit 1X ONCE IV Last administered on 11:23; Start 05/04/17 at 11:00; Stop 05/04/17 at 11:02; Status DC Heparin Sodium (Porcine) (Heparin Sodium) 2,600 unit 1X ONCE INT CAT Last administered on 9/22/17at 11:22; Start 05/04/17 at 11:00; Stop 05/04/17 at 11:02 ; Status DC Acetaminophen (Tylenol) 650 mg PRN Q6HRS PRN PO MILD PAIN Last administered on 05/04/17 18:10; Start 05/04/17 at 18:15 Tramadol HCl (Ultram) 50 mg PRN Q6HRS PRN PO PAIN Last administered on 19:16; Start 05/04/17 at 18:15 Morphine Sulfate 2 mg PRN Q4HRS PRN IV PAIN; Start 05/04/17 at 18:15 Magnesium Sulfate/ Dextrose 50 ml @ 25 mls/hr 1X ONCE IV Last administered on 05/05/17 02:52; Start 05/05/17 at 02:45; Stop 05/05/17 at 04:44; Status DC Albuterol/ Ipratropium (Duoneb) 3 ml RTQID NEB Last administered on 05/07/17 07:36; Start 05/05/17 at 09:30 Amino Acids/ Glycerin/ Electrolytes 1,000 ml @ 80 mls/hr [id number] IV Last administered on 05/07/17 02:42; Start 05/05/17 at 11:30 Active Scripts Active Vitamin D2 (Ergocalciferol (Vitamin D2)) 50,000 Unit Capsule 50,000 Unit PO WEEKLY Folbic Tablet (Cyanocobalamin/Fa/Pyridoxine) 1 Each Tablet 1 Tab PO DAILY Calcitriol 0.25 Mcg Capsule 0.25 Mcg PO DAILY Reported Flovent 50MCG Diskus (Fluticasone Propionate) 50 Mcg Disk.w.dev 50 Mcg IH BID Imodium A-D (Loperamide Hcl) 1 Mg/7.5 Ml Liquid 2 Mg PO DAILY08 Norvasc (Amlodipine Besylate) 10 Mg Tablet 10 Mg PO DAILY08 Vitals/I & O Vital Sign - Last 24 Hours 05/06/17 05/06/17 05/06/17 05/06/17 11:00 11:41 15:00 15:00 Temp 98.0 98.5 98.5 98.0 98.5 98.5 Pulse 75 81 81 Resp 18 20 18 B/P (MAP) 112/57 (75) 108/59 108/59 (75) Pulse Ox 95 93 O2 Delivery Room Air Room Air Room Air 05/06/17 05/06/17 05/06/17 05/06/17 15:15 16:15 17:21 19:00 Temp 98.8 98.2 98.3 97.2 98.8 98.2 98.3 97.2 Pulse 78 80 84 79 Resp 20 18 18 17 B/P (MAP) 115/61 109/60 131/71 (91) 130/72 (91) Pulse Ox 98 O2 Delivery Room Air Room Air 05/06/17 05/06/17 05/06/17 05/06/17 19:16 19:35 19:36 19:44 Pulse Ox 93 97 97 O2 Delivery Room Air Room Air Room Air Room Air 05/06/17 05/06/17 05/07/17 05/07/17 20:18 23:00 03:00 07:00 Temp 98.8 98.7 97.9 98.8 98.7 97.9 Pulse 77 76 77 Resp 18 17 18 B/P (MAP) 113/60 (77) 112/59 (76) 116/65 (82) Pulse Ox 97 98 96 95 O2 Delivery Room Air Room Air Room Air Room Air 05/07/17 07:37 Pulse Ox 97 O2 Delivery Room Air Intake and Output 05/07/17 05/07/17 05/08/17 15:00 23:00 07:00 Intake Total 300 ml Balance 300 ml ALIN MAXWELL MD May 07, 2017 09:05
[2017-05-07] MEDS: CALCITRIOL 0.25 MCG CAPSULE. PO SCH (09:14)
[2017-05-07] MEDS: VITAMIN B12,B9,B6 COMPLEX 1 TABLET. PO SCH (09:14)
[2017-05-07] MEDS: amLODIPine BESYLATE 10 MG TABLET PO SCH (09:15)
[2017-05-07] MEDS: CALCIUM CARBONATE 500 MG TABLET PO SCH ×3 (09:15→18:00)
[2017-05-07] MEDS: traMADol 50 MG TABLET PO PRN ×2 (09:15→15:48)
[2017-05-07] MEDS: ONDANSETRON PF 4 MG/2 ML VIAL. IV PRN (09:16)
[2017-05-07] MEDS: MAG HYDROX/ALUMINUM HYD/SIMETH 30 ML ORAL.SUSP PO PRN ×2 (09:16→18:04)
--- NOTE | 2017-05-07 09:52 | PDOC ---
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 acute metabolic gap acidosis Small-bowel obstruction. surgical following Prior Hx of colon cancer. Thrombocytopenia. History of Present Illness History of Present Illness nausea this AM better PO intake renal following acidosis, SANGITA on CKD Vitals Vitals Vital Signs Date Time Temp Pulse Resp B/P (MAP) Pulse Ox O2 Delivery O2 Flow Rate FiO2 05/07/17 09:15 Room Air 05/07/17 09:15 77 116/65 05/07/17 07:37 97 05/07/17 07:00 97.9 18 97.9 Physical Exam General: Alert, Oriented X3, No acute distress Heart: Normal S1, Normal S2, No murmurs Lungs: Other (deminished bs) Abdomen: Normal bowel sounds, Soft, No tenderness Skin: No rashes Labs LABS Laboratory Tests Test 05/07/17 05:00 Sodium Level 135 mmol/L (136-145) Potassium Level 3.8 mmol/L (3.5-5.1) Chloride Level 103 mmol/L (98-107) Carbon Dioxide Level 23 mmol/L (21-32) Anion Gap 9 (6-14) Blood Urea Nitrogen 62 mg/dL (7-20) Creatinine 3.4 mg/dL (0.6-1.0) Estimated GFR (Cockcroft-Gault) 13.4 Glucose Level 90 mg/dL (70-99) Calcium Level 7.7 mg/dL (8.5-10.1) Phosphorus Level 3.5 mg/dL (2.6-4.7) Magnesium Level 1.8 mg/dL (1.8-2.4) Albumin 2.5 g/dL (3.4-5.0) Review of Systems Review of Systems no n.v.d Assessment and Plan Assessmemt and Plan Problems Medical Problems: (1) Anemia Status: Acute (2) Renal failure Status: Acute Problems: Comment Review of Relevant I have reviewed the following items yoel (where applicable) has been applied. Labs Laboratory Tests Test 05/06/17 04:37 05/07/17 05:00 White Blood Count 5.8 x10^3/uL (4.0-11.0) Red Blood Count 2.43 x10^6/uL (3.50-5.40) Hemoglobin 6.9 g/dL (12.0-15.5) Hematocrit 21.1 % (36.0-47.0) Mean Corpuscular Volume 87 fL (79-100) Mean Corpuscular Hemoglobin 29 pg (25-35) Mean Corpuscular Hemoglobin Concent 33 g/dL (31-37) Red Cell Distribution Width 16.1 % (11.5-14.5) Platelet Count 84 x10^3/uL (140-400) Neutrophils (%) (Auto) 69 % (31-73) Lymphocytes (%) (Auto) 20 % (24-48) Monocytes (%) (Auto) 10 % (0-9) Eosinophils (%) (Auto) 1 % (0-3) Basophils (%) (Auto) 0 % (0-3) Neutrophils # (Auto) 4.0 x10^3uL (1.8-7.7) Lymphocytes # (Auto) 1.2 x10^3/uL (1.0-4.8) Monocytes # (Auto) 0.6 x10^3/uL (0.0-1.1) Eosinophils # (Auto) 0.0 x10^3/uL (0.0-0.7) Basophils # (Auto) 0.0 x10^3/uL (0.0-0.2) Sodium Level 137 mmol/L (136-145) 135 mmol/L (136-145) Potassium Level 3.5 mmol/L (3.5-5.1) 3.8 mmol/L (3.5-5.1) Chloride Level 104 mmol/L (98-107) 103 mmol/L (98-107) Carbon Dioxide Level 21 mmol/L (21-32) 23 mmol/L (21-32) Anion Gap 12 (6-14) 9 (6-14) Blood Urea Nitrogen 62 mg/dL (7-20) 62 mg/dL (7-20) Creatinine 3.7 mg/dL (0.6-1.0) 3.4 mg/dL (0.6-1.0) Estimated GFR (Cockcroft-Gault) 12.2 13.4 BUN/Creatinine Ratio 17 (6-20) Glucose Level 106 mg/dL (70-99) 90 mg/dL (70-99) Calcium Level 7.3 mg/dL (8.5-10.1) 7.7 mg/dL (8.5-10.1) Phosphorus Level 4.5 mg/dL (2.6-4.7) 3.5 mg/dL (2.6-4.7) Magnesium Level 1.9 mg/dL (1.8-2.4) 1.8 mg/dL (1.8-2.4) Total Bilirubin 0.2 mg/dL (0.2-1.0) Aspartate Amino Transf (AST/SGOT) 13 U/L (15-37) Alanine Aminotransferase (ALT/SGPT) 23 U/L (14-59) Alkaline Phosphatase 83 U/L (46-116) Total Protein 5.1 g/dL (6.4-8.2) Albumin 2.4 g/dL (3.4-5.0) 2.5 g/dL (3.4-5.0) Albumin/Globulin Ratio 0.9 (1.0-1.7) Laboratory Tests Test 05/07/17 05:00 Sodium Level 135 mmol/L (136-145) Potassium Level 3.8 mmol/L (3.5-5.1) Chloride Level 103 mmol/L (98-107) Carbon Dioxide Level 23 mmol/L (21-32) Anion Gap 9 (6-14) Blood Urea Nitrogen 62 mg/dL (7-20) Creatinine 3.4 mg/dL (0.6-1.0) Estimated GFR (Cockcroft-Gault) 13.4 Glucose Level 90 mg/dL (70-99) Calcium Level 7.7 mg/dL (8.5-10.1) Phosphorus Level 3.5 mg/dL (2.6-4.7) Magnesium Level 1.8 mg/dL (1.8-2.4) Albumin 2.5 g/dL (3.4-5.0) Microbiology 05/04/17 Urine Culture - Final, Complete 05/04/17 Urine Culture Result 1 (OLAMIDE) - Final, Complete 05/04/17 Antimicrobic Susceptibility - Final, Complete Medications Current Medications Ondansetron HCl (Zofran) 4 mg 1X ONCE IV Last administered on 05/02/17t 23:27 ; Start 05/02/17 at 23:15; Stop 05/02/17 at 23:16; Status DC Multi-Ingredient Mouthwash/Gargle (Gi Cocktail Single Dose) 15 ml 1X ONCE SWSW Last administered on 05/02/17 23:27; Start 05/02/17 at 23:15; Stop 05/02/17 at 23:16; Status DC Sodium Bicarbonate 100 meq 1X ONCE IV Last administered on 05/03/17 01:17; Start 05/03/17 at 01:15; Stop 05/03/17 at 01:16; Status DC Ondansetron HCl (Zofran) 4 mg PRN Q8HRS PRN IV NAUSEA/VOMITING; Start 05/03/17 at 01:15; Stop 05/04/17 at 01:14; Status DC Morphine Sulfate 2 mg PRN Q2HR PRN IV PAIN; Start 05/03/17 at 01:15; Stop 05/04 at 01:14; Status DC Sodium Chloride 1,000 ml @ 125 mls/hr 1X ONCE IV Last administered on 04:45; Start 05/03/17 at 04:30; Stop 05/04/17 at 10:02; Status DC Magnesium Sulfate/ Dextrose 50 ml @ 25 mls/hr PRN DAILY PRN IV for Mag < 1.7 on am labs; Start 05/03/17 at 09:15 Sodium Bicarbonate 75 meq/Sodium Chloride 1,075 ml @ 75 mls/hr [id number] IV Last administered on 05/03/17 17:17; Start 05/03/17 at 10:00; Stop 05/03/17 at 21:50; Status DC Budesonide (Pulmicort) 0.5 mg RTBID NEB Last administered on 05/07/17 07:36; Start 05/03/17 at 12:00 Sodium Chloride 1,000 ml @ 250 mls/hr 1X ONCE IV Last administered on 13:17; Start 05/03/17 at 12:30; Stop 05/03/17 at 16:44; Status DC Amlodipine Besylate (Norvasc) 10 mg DAILY08 PO Last administered on 05/07/17 09:15; Start 05/03/17 at 15:00 Calcitriol (Rocaltrol) 0.25 mcg DAILY PO Last administered on 05/07/17 09:14; Start 05/03/17 at 15:00 Vitamin B Complex (Folbic Tablet) 1 tab DAILY PO Last administered on 09:14; Start 05/03/17 at 15:00 Ergocalciferol (Vitamin D2) 50,000 unit WEEKLY PO ; Start 05/10/17 at 09:00 Non-Formulary Medication 50 mcg BID IH ; Start 05/03/17 at 21:00; Stop 05/03/17 at 21:00; Status DC Loperamide HCl (Imodium) 2 mg DAILY08 PO Last administered on 05/05/17 09:30; Start 05/03/17 at 15:00; Stop 05/05/17 at 10:49; Status DC Sodium Chloride 1,000 ml @ 100 mls/hr Q10H IV Last administered on 05/04/17 06:01; Start 05/03/17 at 21:30; Stop 05/04/17 at 07:04; Status DC Sodium Chloride 1,000 ml @ 100 mls/hr Q10H IV Last administered on 05/04/17 07:10; Start 05/04/17 at 07:30; Stop 05/04/17 at 10:02; Status DC Sodium Bicarbonate 75 meq/Potassium Acetate 20 meq/ Dextrose 1,085 ml @ 50 mls/ hr [id number] IV Last administered on 05/06/17 19:18; Start 05/04/17 at 10:00 Darbepoetin Jono (Aranesp) 60 mcg WEEKLYHS SQ Last administered on 05/04/17 20 :51; Start 05/04/17 at 21:00 Lidocaine/Sodium Bicarbonate (Buffered Lidocaine 1%) 20 ml STK-MED ONCE IJ ; Start 05/04/17 at 10:23; Stop 05/04/17 at 10:24; Status DC Heparin Sodium (Porcine) (Heparin Sodium) 10,000 unit STK-MED ONCE .ROUTE ; Start 05/04/17 at 10:23; Stop 05/04/17 at 10:24; Status DC Heparin Sodium/ Sodium Chloride 500 ml @ As Directed STK-MED ONCE .ROUTE ; Start 05/04/17 at 10:23; Stop 05/04/17 at 10:24; Status DC Lidocaine/Sodium Bicarbonate (Buffered Lidocaine 1%) 20 ml 1X ONCE IJ Last administered on 05/04/17 11:22; Start 05/04/17 at 11:00; Stop 05/04/17 at 11:02 ; Status DC Heparin Sodium/ Sodium Chloride 1,000 unit 1X ONCE IV Last administered on 11:23; Start 05/04/17 at 11:00; Stop 05/04/17 at 11:02; Status DC Heparin Sodium (Porcine) (Heparin Sodium) 2,600 unit 1X ONCE INT CAT Last administered on 05/04/17 11:22; Start 05/04/17 at 11:00; Stop 05/04/17 at 11:02 ; Status DC Acetaminophen (Tylenol) 650 mg PRN Q6HRS PRN PO MILD PAIN Last administered on 05/04/17 18:10; Start 05/04/17 at 18:15 Tramadol HCl (Ultram) 50 mg PRN Q6HRS PRN PO PAIN Last administered on 09:15; Start 05/04/17 at 18:15 Morphine Sulfate 2 mg PRN Q4HRS PRN IV PAIN; Start 05/04/17 at 18:15 Magnesium Sulfate/ Dextrose 50 ml @ 25 mls/hr 1X ONCE IV Last administered on 05/05/17 02:52; Start 05/05/17 at 02:45; Stop 05/05/17 at 04:44; Status DC Albuterol/ Ipratropium (Duoneb) 3 ml RTQID NEB Last administered on 05/07/17 07:36; Start 05/05/17 at 09:30 Amino Acids/ Glycerin/ Electrolytes 1,000 ml @ 80 mls/hr [id number] IV Last administered on 05/07/17 02:42; Start 05/05/17 at 11:30 Calcium Carbonate/ Glycine (Oscal) 500 mg TIDAFTMEAL PO ; Start 05/07/17 at 09: 15 Ondansetron HCl (Zofran) 4 mg PRN Q8HRS PRN IV NAUSEA/VOMITING Last administered on 05/07/17 09:16; Start 05/07/17 at 09:15 Al Hydroxide/Mg Hydroxide (Mylanta Plus Xs) 30 ml PRN Q6HRS PRN PO HEARTBURN / GAS Last administered on 9/25/17at 09:16; Start 05/07/17 at 09:15 Active Scripts Active Vitamin D2 (Ergocalciferol (Vitamin D2)) 50,000 Unit Capsule 50,000 Unit PO WEEKLY Folbic Tablet (Cyanocobalamin/Fa/Pyridoxine) 1 Each Tablet 1 Tab PO DAILY Calcitriol 0.25 Mcg Capsule 0.25 Mcg PO DAILY Reported Flovent 50MCG Diskus (Fluticasone Propionate) 50 Mcg Disk.w.dev 50 Mcg IH BID Imodium A-D (Loperamide Hcl) 1 Mg/7.5 Ml Liquid 2 Mg PO DAILY08 Norvasc (Amlodipine Besylate) 10 Mg Tablet 10 Mg PO DAILY08 Vitals/I & O Vital Sign - Last 24 Hours 05/06/17 05/06/17 05/06/17 05/06/17 11:00 11:41 15:00 15:00 Temp 98.0 98.5 98.5 98.0 98.5 98.5 Pulse 75 81 81 Resp 18 20 18 B/P (MAP) 112/57 (75) 108/59 108/59 (75) Pulse Ox 95 93 O2 Delivery Room Air Room Air Room Air 05/06/17 05/06/17 05/06/17 05/06/17 15:15 16:15 17:21 19:00 Temp 98.8 98.2 98.3 97.2 98.8 98.2 98.3 97.2 Pulse 78 80 84 79 Resp 20 18 18 17 B/P (MAP) 115/61 109/60 131/71 (91) 130/72 (91) Pulse Ox 98 O2 Delivery Room Air Room Air 05/06/17 05/06/17 05/06/17 05/06/17 19:16 19:35 19:36 19:44 Pulse Ox 93 97 97 O2 Delivery Room Air Room Air Room Air Room Air 05/06/17 05/06/17 05/07/17 05/07/17 20:18 23:00 03:00 07:00 Temp 98.8 98.7 97.9 98.8 98.7 97.9 Pulse 77 76 77 Resp 18 17 18 B/P (MAP) 113/60 (77) 112/59 (76) 116/65 (82) Pulse Ox 97 98 96 95 O2 Delivery Room Air Room Air Room Air Room Air 05/07/17 05/07/17 05/07/17 07:37 09:15 09:15 Pulse 77 B/P (MAP) 116/65 Pulse Ox 97 O2 Delivery Room Air Room Air Intake and Output 05/07/17 05/07/17 05/08/17 15:00 23:00 07:00 Intake Total 300 ml Balance 300 ml JONY PRIEST MD May 07, 2017 09:52
[2017-05-07 11:00] VITALS: BP 111/62
--- NOTE | 2017-05-07 11:40 | PDOC ---
Renal-Progress Notes Subjective Notes Notes FEELS WELL. EATING WELL NOW History of Present Illness Hx of present illness STABLE Vitals Vitals Vital Signs Date Time Temp Pulse Resp B/P (MAP) Pulse Ox O2 Delivery O2 Flow Rate FiO2 05/07/17 11:30 Room Air 05/07/17 11:00 98.0 78 18 111/62 (78) 95 98.0 Weight Weight [ ] I.O. Intake and Output Intake and Output 05/08/17 07:00 Intake Total 300 ml Balance 300 ml Intake Oral 300 ml Labs Labs Laboratory Tests Test 05/07/17 05:00 Sodium Level 135 mmol/L (136-145) Potassium Level 3.8 mmol/L (3.5-5.1) Chloride Level 103 mmol/L (98-107) Carbon Dioxide Level 23 mmol/L (21-32) Anion Gap 9 (6-14) Blood Urea Nitrogen 62 mg/dL (7-20) Creatinine 3.4 mg/dL (0.6-1.0) Estimated GFR (Cockcroft-Gault) 13.4 Glucose Level 90 mg/dL (70-99) Calcium Level 7.7 mg/dL (8.5-10.1) Phosphorus Level 3.5 mg/dL (2.6-4.7) Magnesium Level 1.8 mg/dL (1.8-2.4) Albumin 2.5 g/dL (3.4-5.0) Micro Micro Microbiology 05/04/17 Urine Culture - Final, Complete 05/04/17 Urine Culture Result 1 (OLAMIDE) - Final, Complete 05/04/17 Antimicrobic Susceptibility - Final, Complete Review of Systems Constitutional: yes: malaise, weakness, alert, oriented Ears/Nose/Throat: Yes: no symptom reported Eyes: Yes: no symptom reported Cardiovascular: Yes no symptom reported Gastrointestional: Yes: nausea Genitourinary: Yes: no symptom reported Musculoskeletal: Yes: muscle stiffness Skin: Yes no symptom reported Psychiatric/Neurological: Yes: no symptom reported Endocrine: Yes: no symptom reported Hematologic/Lymphatic: Yes: no symptom reported Physical Exam General Appearance: no apparent distress Skin: warm Respiratory: decreased breath sounds Heart: S1S2, RRR Abdomen: soft, other (HYPOACTIVE) Extremities: pulses present, no edema Neurology: alert Assessment Assessment IMP CKD 4 WITH CR OF ABOUT 2.5 AT BASELINE [place] WITH CR OF ABOUT 5.0 AND NOW DOWN TO 3.4 ANEMIA SBO VS ILEUS PLAN EATING WELL WILL STOP HER PPN LABS IN AM REMOVE TEMP HD CATHETER OK TO D/C TOMORROW IF CR BETTER OR STABLE NO NEED FOR DIALYSIS LIONEL BRAGA MD May 07, 2017 11:40
--- NOTE | 2017-05-07 11:57 | PDOC ---
SURGICAL PROGRESS NOTE Subjective no new complaints tolerating diet Vital Signs Vital Signs Date Time Temp Pulse Resp B/P (MAP) Pulse Ox O2 Delivery O2 Flow Rate FiO2 05/07/17 11:30 Room Air 05/07/17 11:00 98.0 78 18 111/62 (78) 95 98.0 I&O Intake and Output 05/08/17 07:00 Intake Total 300 ml Balance 300 ml Intake Oral 300 ml PATIENT HAS A MOYA: No General: Alert, Oriented X3, No acute distress Abdomen: Soft, No tenderness Labs Laboratory Tests Test 05/06/17 04:37 05/07/17 05:00 White Blood Count 5.8 x10^3/uL (4.0-11.0) Red Blood Count 2.43 x10^6/uL (3.50-5.40) Hemoglobin 6.9 g/dL (12.0-15.5) Hematocrit 21.1 % (36.0-47.0) Mean Corpuscular Volume 87 fL (79-100) Mean Corpuscular Hemoglobin 29 pg (25-35) Mean Corpuscular Hemoglobin Concent 33 g/dL (31-37) Red Cell Distribution Width 16.1 % (11.5-14.5) Platelet Count 84 x10^3/uL (140-400) Neutrophils (%) (Auto) 69 % (31-73) Lymphocytes (%) (Auto) 20 % (24-48) Monocytes (%) (Auto) 10 % (0-9) Eosinophils (%) (Auto) 1 % (0-3) Basophils (%) (Auto) 0 % (0-3) Neutrophils # (Auto) 4.0 x10^3uL (1.8-7.7) Lymphocytes # (Auto) 1.2 x10^3/uL (1.0-4.8) Monocytes # (Auto) 0.6 x10^3/uL (0.0-1.1) Eosinophils # (Auto) 0.0 x10^3/uL (0.0-0.7) Basophils # (Auto) 0.0 x10^3/uL (0.0-0.2) Sodium Level 137 mmol/L (136-145) 135 mmol/L (136-145) Potassium Level 3.5 mmol/L (3.5-5.1) 3.8 mmol/L (3.5-5.1) Chloride Level 104 mmol/L (98-107) 103 mmol/L (98-107) Carbon Dioxide Level 21 mmol/L (21-32) 23 mmol/L (21-32) Anion Gap 12 (6-14) 9 (6-14) Blood Urea Nitrogen 62 mg/dL (7-20) 62 mg/dL (7-20) Creatinine 3.7 mg/dL (0.6-1.0) 3.4 mg/dL (0.6-1.0) Estimated GFR (Cockcroft-Gault) 12.2 13.4 BUN/Creatinine Ratio 17 (6-20) Glucose Level 106 mg/dL (70-99) 90 mg/dL (70-99) Calcium Level 7.3 mg/dL (8.5-10.1) 7.7 mg/dL (8.5-10.1) Phosphorus Level 4.5 mg/dL (2.6-4.7) 3.5 mg/dL (2.6-4.7) Magnesium Level 1.9 mg/dL (1.8-2.4) 1.8 mg/dL (1.8-2.4) Total Bilirubin 0.2 mg/dL (0.2-1.0) Aspartate Amino Transf (AST/SGOT) 13 U/L (15-37) Alanine Aminotransferase (ALT/SGPT) 23 U/L (14-59) Alkaline Phosphatase 83 U/L (46-116) Total Protein 5.1 g/dL (6.4-8.2) Albumin 2.4 g/dL (3.4-5.0) 2.5 g/dL (3.4-5.0) Albumin/Globulin Ratio 0.9 (1.0-1.7) Laboratory Tests Test 05/07/17 05:00 Sodium Level 135 mmol/L (136-145) Potassium Level 3.8 mmol/L (3.5-5.1) Chloride Level 103 mmol/L (98-107) Carbon Dioxide Level 23 mmol/L (21-32) Anion Gap 9 (6-14) Blood Urea Nitrogen 62 mg/dL (7-20) Creatinine 3.4 mg/dL (0.6-1.0) Estimated GFR (Cockcroft-Gault) 13.4 Glucose Level 90 mg/dL (70-99) Calcium Level 7.7 mg/dL (8.5-10.1) Phosphorus Level 3.5 mg/dL (2.6-4.7) Magnesium Level 1.8 mg/dL (1.8-2.4) Albumin 2.5 g/dL (3.4-5.0) Problem List Problems Medical Problems: (1) Anemia Status: Acute (2) Renal failure Status: Acute Assessment/Plan ARF ileus/SBO resolving advance diet as tolerated no new surgical recs Problems: NEMESIO BRICENO MD May 07, 2017 11:57
[2017-05-07 14:49] VITALS: BP 112/63
--- NOTE | 2017-05-07 16:44 | PDOC ---
PULMONARY PROGRESS NOTES Subjective PT NO INCREASE SOA Vitals Vital Signs Date Time Temp Pulse Resp B/P (MAP) Pulse Ox O2 Delivery O2 Flow Rate FiO2 05/07/17 15:48 Room Air 05/07/17 14:49 98.0 79 18 112/63 (79) 95 98.0 ROS: No Nausea, No Chest Pain, No Increase Cough General: Alert, No acute distress Lungs: Clear Cardiovascular: S1, S2 Abdomen: Soft, Non-tender Neuro Exam: Alert Extremities: No Edema Skin: Warm Labs Laboratory Tests Test 05/06/17 04:37 05/07/17 05:00 White Blood Count 5.8 x10^3/uL (4.0-11.0) Red Blood Count 2.43 x10^6/uL (3.50-5.40) Hemoglobin 6.9 g/dL (12.0-15.5) Hematocrit 21.1 % (36.0-47.0) Mean Corpuscular Volume 87 fL (79-100) Mean Corpuscular Hemoglobin 29 pg (25-35) Mean Corpuscular Hemoglobin Concent 33 g/dL (31-37) Red Cell Distribution Width 16.1 % (11.5-14.5) Platelet Count 84 x10^3/uL (140-400) Neutrophils (%) (Auto) 69 % (31-73) Lymphocytes (%) (Auto) 20 % (24-48) Monocytes (%) (Auto) 10 % (0-9) Eosinophils (%) (Auto) 1 % (0-3) Basophils (%) (Auto) 0 % (0-3) Neutrophils # (Auto) 4.0 x10^3uL (1.8-7.7) Lymphocytes # (Auto) 1.2 x10^3/uL (1.0-4.8) Monocytes # (Auto) 0.6 x10^3/uL (0.0-1.1) Eosinophils # (Auto) 0.0 x10^3/uL (0.0-0.7) Basophils # (Auto) 0.0 x10^3/uL (0.0-0.2) Sodium Level 137 mmol/L (136-145) 135 mmol/L (136-145) Potassium Level 3.5 mmol/L (3.5-5.1) 3.8 mmol/L (3.5-5.1) Chloride Level 104 mmol/L (98-107) 103 mmol/L (98-107) Carbon Dioxide Level 21 mmol/L (21-32) 23 mmol/L (21-32) Anion Gap 12 (6-14) 9 (6-14) Blood Urea Nitrogen 62 mg/dL (7-20) 62 mg/dL (7-20) Creatinine 3.7 mg/dL (0.6-1.0) 3.4 mg/dL (0.6-1.0) Estimated GFR (Cockcroft-Gault) 12.2 13.4 BUN/Creatinine Ratio 17 (6-20) Glucose Level 106 mg/dL (70-99) 90 mg/dL (70-99) Calcium Level 7.3 mg/dL (8.5-10.1) 7.7 mg/dL (8.5-10.1) Phosphorus Level 4.5 mg/dL (2.6-4.7) 3.5 mg/dL (2.6-4.7) Magnesium Level 1.9 mg/dL (1.8-2.4) 1.8 mg/dL (1.8-2.4) Total Bilirubin 0.2 mg/dL (0.2-1.0) Aspartate Amino Transf (AST/SGOT) 13 U/L (15-37) Alanine Aminotransferase (ALT/SGPT) 23 U/L (14-59) Alkaline Phosphatase 83 U/L (46-116) Total Protein 5.1 g/dL (6.4-8.2) Albumin 2.4 g/dL (3.4-5.0) 2.5 g/dL (3.4-5.0) Albumin/Globulin Ratio 0.9 (1.0-1.7) Laboratory Tests Test 05/07/17 05:00 Sodium Level 135 mmol/L (136-145) Potassium Level 3.8 mmol/L (3.5-5.1) Chloride Level 103 mmol/L (98-107) Carbon Dioxide Level 23 mmol/L (21-32) Anion Gap 9 (6-14) Blood Urea Nitrogen 62 mg/dL (7-20) Creatinine 3.4 mg/dL (0.6-1.0) Estimated GFR (Cockcroft-Gault) 13.4 Glucose Level 90 mg/dL (70-99) Calcium Level 7.7 mg/dL (8.5-10.1) Phosphorus Level 3.5 mg/dL (2.6-4.7) Magnesium Level 1.8 mg/dL (1.8-2.4) Albumin 2.5 g/dL (3.4-5.0) Medications Active Scripts Medications Dose Route/Sig Max Daily Dose Days Date Category Vitamin D2 (Ergocalciferol (Vitamin D2)) 50,000 Unit Capsule 50,000 Unit PO WEEKLY 12/07/16 Rx Folbic Tablet (Cyanocobalamin/Fa/Pyridoxine) 1 Each Tablet 1 Tab PO DAILY 12/07/16 Rx Calcitriol 0.25 Mcg Capsule 0.25 Mcg PO DAILY 12/07/16 Rx Flovent 50MCG Diskus (Fluticasone Propionate) 50 Mcg Disk.w.dev 50 Mcg IH BID 09/04/13 Reported Imodium A-D (Loperamide Hcl) 1 Mg/7.5 Ml Liquid 2 Mg PO DAILY08 09/04/13 Reported Norvasc (Amlodipine Besylate) 10 Mg Tablet 10 Mg PO DAILY08 09/04/13 Reported Impression . 1. Abnormal arterial blood gases secondary to acute metabolic acidosis with respiratory compensation. 2. Increased anion gap metabolic acidosis 3. History of asthma as a child. 4. Clear chest x-ray. 5. Acute renal failure, 6. Small-bowel obstruction. Plan . CONTINUE THE SAME FLOVENT OUTPT FOLLOW RENAL INPUT RESP STATUS IS COMPENSATED LYRIC SMART MD May 07, 2017 16:44
[2017-05-07 19:00] VITALS: BP 131/89
[2017-05-07] MEDS: SUCRALFATE 1 GM TABLET. PO SCH (20:52)
[2017-05-07] MEDS: DEXTROSE 5% IV SCH (21:14)
[2017-05-07] MEDS: POTASSIUM ACETATE IV SCH (21:14)
[2017-05-07] MEDS: SODIUM BICARBONATE IV SCH (21:14)
[2017-05-07 23:00] VITALS: BP 117/67
[2017-05-08] MEDS: AMINO AC 3%/ELECTROLYTE/GLYCER 1,000 ML IV SCH (02:14)
[2017-05-08] MEDS: ONDANSETRON PF 4 MG/2 ML VIAL. IV PRN (02:24)
[2017-05-08] MEDS: MAG HYDROX/ALUMINUM HYD/SIMETH 30 ML ORAL.SUSP PO PRN (02:24)
[2017-05-08 03:17] VITALS: BP 116/72
[2017-05-08 05:31] LABS: ALBUMIN 2.7 g/dL (3.4-5.0); CALCIUM 8.1 mg/dL (8.5-10.1); CREATININE 3.3 mg/dL (0.6-1.0); GFR 13.9
[2017-05-08 07:00] VITALS: BP 125/66
[2017-05-08] MEDS: BUDESONIDE 0.5 MG/2 ML NEBU. NEB SCH ×2 (07:37→20:13)
[2017-05-08] MEDS: IPRATRPIUM/ALBUTEROL 0.5/2.5MG 3 ML NEBU. NEB SCH ×4 (07:38→20:13)
--- NOTE | 2017-05-08 09:00 | PDOC ---
PROGRESS NOTES Subjective Subjective c/c - f/u of Small-bowel obstruction ROS - no abd pain Objective Objective Vital Signs Date Time Temp Pulse Resp B/P (MAP) Pulse Ox O2 Delivery O2 Flow Rate FiO2 05/08/17 07:39 92 Room Air 05/08/17 07:00 97.7 74 20 125/66 (85) 97.7 Physical Exam Heart: Normal S1, Normal S2 General: Alert, Oriented X3 Lungs: Clear to auscultation Neuro: Normal speech Assessment Assessment Problems Medical Problems: (1) Anemia Status: Acute (2) Renal failure Status: Acute IMPRESSION AND PLAN: 1. Small-bowel obstruction. Appreciate surgical consultation and management. CT scan does not reveal any evidence of recurrent colon cancer. Continue management of obstruction by surgery. CEA elevated 6.3 on 05/04/17, consult GI. Obtain CT chest. 2. Anemia due to CKD. She has history of B12 deficiency. B12 levels are now normal. Agree to monitor Hb and transfuse as needed. Agree with aranesp. 3. Thrombocytopenia. Reactive, B12 is now normal. h/o pancytopenia due to B12 def in past - bone marrow bx 08/06/16: Path report: The constellation of peripheral blood, bone marrow, and clinical laboratory findings are compatible with B12 deficiency. 4. Colon cancer in the past per pt. I obtained pathology records from [facility] since 1999 and there is no evidence of cancer. She had mentioned that the surgery was done at [facility] for cancer. She now mentions that it was done at . I will obtain records. Comment Review of Relevant I have reviewed the following items yoel (where applicable) has been applied. Labs Laboratory Tests Test 05/07/17 05:00 05/08/17 04:50 Sodium Level 135 mmol/L (136-145) 137 mmol/L (136-145) Potassium Level 3.8 mmol/L (3.5-5.1) 4.0 mmol/L (3.5-5.1) Chloride Level 103 mmol/L (98-107) 100 mmol/L (98-107) Carbon Dioxide Level 23 mmol/L (21-32) 28 mmol/L (21-32) Anion Gap 9 (6-14) 9 (6-14) Blood Urea Nitrogen 62 mg/dL (7-20) 65 mg/dL (7-20) Creatinine 3.4 mg/dL (0.6-1.0) 3.3 mg/dL (0.6-1.0) Estimated GFR (Cockcroft-Gault) 13.4 13.9 Glucose Level 90 mg/dL (70-99) 92 mg/dL (70-99) Calcium Level 7.7 mg/dL (8.5-10.1) 8.1 mg/dL (8.5-10.1) Phosphorus Level 3.5 mg/dL (2.6-4.7) 3.0 mg/dL (2.6-4.7) Magnesium Level 1.8 mg/dL (1.8-2.4) 1.9 mg/dL (1.8-2.4) Albumin 2.5 g/dL (3.4-5.0) 2.7 g/dL (3.4-5.0) Laboratory Tests Test 05/08/17 04:50 Sodium Level 137 mmol/L (136-145) Potassium Level 4.0 mmol/L (3.5-5.1) Chloride Level 100 mmol/L (98-107) Carbon Dioxide Level 28 mmol/L (21-32) Anion Gap 9 (6-14) Blood Urea Nitrogen 65 mg/dL (7-20) Creatinine 3.3 mg/dL (0.6-1.0) Estimated GFR (Cockcroft-Gault) 13.9 Glucose Level 92 mg/dL (70-99) Calcium Level 8.1 mg/dL (8.5-10.1) Phosphorus Level 3.0 mg/dL (2.6-4.7) Magnesium Level 1.9 mg/dL (1.8-2.4) Albumin 2.7 g/dL (3.4-5.0) Microbiology 05/04/17 Urine Culture - Final, Complete 05/04/17 Urine Culture Result 1 (OLAMIDE) - Final, Complete 05/04/17 Antimicrobic Susceptibility - Final, Complete Medications Current Medications Ondansetron HCl (Zofran) 4 mg 1X ONCE IV Last administered on 05/02/17 23:27 ; Start 05/02/17 at 23:15; Stop 05/02/17 at 23:16; Status DC Multi-Ingredient Mouthwash/Gargle (Gi Cocktail Single Dose) 15 ml 1X ONCE SWSW Last administered on 05/02/17 23:27; Start 05/02/17 at 23:15; Stop 05/02/17 at 23:16; Status DC Sodium Bicarbonate 100 meq 1X ONCE IV Last administered on 05/03/17 01:17; Start 05/03/17 at 01:15; Stop 05/03/17 at 01:16; Status DC Ondansetron HCl (Zofran) 4 mg PRN Q8HRS PRN IV NAUSEA/VOMITING; Start 05/03/17 at 01:15; Stop 05/04/17 at 01:14; Status DC Morphine Sulfate 2 mg PRN Q2HR PRN IV PAIN; Start 05/03/17 at 01:15; Stop 05/04 at 01:14; Status DC Sodium Chloride 1,000 ml @ 125 mls/hr 1X ONCE IV Last administered on 04:45; Start 05/03/17 at 04:30; Stop 05/04/17 at 10:02; Status DC Magnesium Sulfate/ Dextrose 50 ml @ 25 mls/hr PRN DAILY PRN IV for Mag < 1.7 on am labs; Start 05/03/17 at 09:15 Sodium Bicarbonate 75 meq/Sodium Chloride 1,075 ml @ 75 mls/hr [id number] IV Last administered on 05/03/17 17:17; Start 05/03/17 at 10:00; Stop 05/03/17 at 21:50; Status DC Budesonide (Pulmicort) 0.5 mg RTBID NEB Last administered on 05/08/17 07:37; Start 05/03/17 at 12:00 Sodium Chloride 1,000 ml @ 250 mls/hr 1X ONCE IV Last administered on 13:17; Start 05/03/17 at 12:30; Stop 05/03/17 at 16:44; Status DC Amlodipine Besylate (Norvasc) 10 mg DAILY08 PO Last administered on 05/07/17 09:15; Start 05/03/17 at 15:00 Calcitriol (Rocaltrol) 0.25 mcg DAILY PO Last administered on 05/07/17 09:14; Start 05/03/17 at 15:00 Vitamin B Complex (Folbic Tablet) 1 tab DAILY PO Last administered on 09:14; Start 05/03/17 at 15:00 Ergocalciferol (Vitamin D2) 50,000 unit WEEKLY PO ; Start 05/10/17 at 09:00 Non-Formulary Medication 50 mcg BID IH ; Start 05/03/17 at 21:00; Stop 05/03/17 at 21:00; Status DC Loperamide HCl (Imodium) 2 mg DAILY08 PO Last administered on 05/05/17 09:30; Start 05/03/17 at 15:00; Stop 05/05/17 at 10:49; Status DC Sodium Chloride 1,000 ml @ 100 mls/hr Q10H IV Last administered on 05/04/17 06:01; Start 05/03/17 at 21:30; Stop 05/04/17 at 07:04; Status DC Sodium Chloride 1,000 ml @ 100 mls/hr Q10H IV Last administered on 05/04/17 07:10; Start 05/04/17 at 07:30; Stop 05/04/17 at 10:02; Status DC Sodium Bicarbonate 75 meq/Potassium Acetate 20 meq/ Dextrose 1,085 ml @ 50 mls/ hr [id number] IV Last administered on 05/07/17 21:14; Start 05/04/17 at 10:00 Darbepoetin Jono (Aranesp) 60 mcg WEEKLYHS SQ Last administered on 05/04/17 20 :51; Start 05/04/17 at 21:00 Lidocaine/Sodium Bicarbonate (Buffered Lidocaine 1%) 20 ml STK-MED ONCE IJ ; Start 05/04/17 at 10:23; Stop 05/04/17 at 10:24; Status DC Heparin Sodium (Porcine) (Heparin Sodium) 10,000 unit STK-MED ONCE .ROUTE ; Start 05/04/17 at 10:23; Stop 05/04/17 at 10:24; Status DC Heparin Sodium/ Sodium Chloride 500 ml @ As Directed STK-MED ONCE .ROUTE ; Start 05/04/17 at 10:23; Stop 05/04/17 at 10:24; Status DC Lidocaine/Sodium Bicarbonate (Buffered Lidocaine 1%) 20 ml 1X ONCE IJ Last administered on 05/04/17 11:22; Start 05/04/17 at 11:00; Stop 05/04/17 at 11:02 ; Status DC Heparin Sodium/ Sodium Chloride 1,000 unit 1X ONCE IV Last administered on 11:23; Start 05/04/17 at 11:00; Stop 05/04/17 at 11:02; Status DC Heparin Sodium (Porcine) (Heparin Sodium) 2,600 unit 1X ONCE INT CAT Last administered on 05/04/17 11:22; Start 05/04/17 at 11:00; Stop 05/04/17 at 11:02 ; Status DC Acetaminophen (Tylenol) 650 mg PRN Q6HRS PRN PO MILD PAIN Last administered on 05/04/17 18:10; Start 05/04/17 at 18:15 Tramadol HCl (Ultram) 50 mg PRN Q6HRS PRN PO PAIN Last administered on 15:48; Start 05/04/17 at 18:15 Morphine Sulfate 2 mg PRN Q4HRS PRN IV PAIN Last administered on 05/08/17 02: 24; Start 05/04/17 at 18:15 Magnesium Sulfate/ Dextrose 50 ml @ 25 mls/hr 1X ONCE IV Last administered on 05/05/17 02:52; Start 05/05/17 at 02:45; Stop 05/05/17 at 04:44; Status DC Albuterol/ Ipratropium (Duoneb) 3 ml RTQID NEB Last administered on 05/08/17 07:38; Start 05/05/17 at 09:30 Amino Acids/ Glycerin/ Electrolytes 1,000 ml @ 80 mls/hr [id number] IV Last administered on 05/08/17 02:14; Start 05/05/17 at 11:30 Calcium Carbonate/ Glycine (Oscal) 500 mg TIDAFTMEAL PO Last administered on 13:38; Start 05/07/17 at 09:15 Ondansetron HCl (Zofran) 4 mg PRN Q8HRS PRN IV NAUSEA/VOMITING Last administered on 05/08/17 02:24; Start 05/07/17 at 09:15 Al Hydroxide/Mg Hydroxide (Mylanta Plus Xs) 30 ml PRN Q6HRS PRN PO HEARTBURN / GAS Last administered on 05/08/17 02:24; Start 05/07/17 at 09:15 Sucralfate (Carafate) 1 gm QIDACHS PO Last administered on 05/07/17t 20:52; Start 05/07/17 at 21:00 Active Scripts Active Vitamin D2 (Ergocalciferol (Vitamin D2)) 50,000 Unit Capsule 50,000 Unit PO WEEKLY Folbic Tablet (Cyanocobalamin/Fa/Pyridoxine) 1 Each Tablet 1 Tab PO DAILY Calcitriol 0.25 Mcg Capsule 0.25 Mcg PO DAILY Reported Flovent 50MCG Diskus (Fluticasone Propionate) 50 Mcg Disk.w.dev 50 Mcg IH BID Imodium A-D (Loperamide Hcl) 1 Mg/7.5 Ml Liquid 2 Mg PO DAILY08 Norvasc (Amlodipine Besylate) 10 Mg Tablet 10 Mg PO DAILY08 Vitals/I & O Vital Sign - Last 24 Hours 05/07/17 05/07/17 05/07/17 05/07/17 09:15 09:15 10:34 11:00 Temp 98.0 98.0 Pulse 77 78 Resp 18 B/P (MAP) 116/65 111/62 (78) Pulse Ox 95 O2 Delivery Room Air Room Air Room Air 05/07/17 05/07/17 05/07/17 05/07/17 11:30 14:49 15:40 15:48 Temp 98.0 98.0 Pulse 79 Resp 18 B/P (MAP) 112/63 (79) Pulse Ox 95 O2 Delivery Room Air Room Air Room Air Room Air 05/07/17 05/07/17 05/07/17 05/07/17 16:48 19:00 19:28 20:08 Temp 98.3 98.3 Pulse 96 Resp 20 B/P (MAP) 131/89 (103) Pulse Ox 95 96 97 O2 Delivery Room Air Room Air Room Air Room Air 05/07/17 05/07/17 05/08/17 05/08/17 20:09 23:00 02:24 02:54 Temp 98.2 98.2 Pulse 82 Resp 20 18 18 B/P (MAP) 117/67 (84) Pulse Ox 97 92 92 95 O2 Delivery Room Air Room Air Room Air Room Air 05/08/17 05/08/17 05/08/17 03:17 07:00 07:39 Temp 98.3 97.7 98.3 97.7 Pulse 74 74 Resp 20 20 B/P (MAP) 116/72 (87) 125/66 (85) Pulse Ox 95 94 92 O2 Delivery Room Air Room Air Room Air ALIN MAXWELL MD May 08, 2017 09:00
[2017-05-08] MEDS: SUCRALFATE 1 GM TABLET. PO SCH ×4 (09:01→20:36)
[2017-05-08] MEDS: CALCIUM CARBONATE 500 MG TABLET PO SCH ×3 (09:01→18:45)
[2017-05-08] MEDS: CALCITRIOL 0.25 MCG CAPSULE. PO SCH (09:01)
[2017-05-08] MEDS: VITAMIN B12,B9,B6 COMPLEX 1 TABLET. PO SCH (09:02)
[2017-05-08] MEDS: amLODIPine BESYLATE 10 MG TABLET PO SCH (09:02)
[2017-05-08 10:23] LABS: BASO % 0 % (0-3); EOS % 2 % (0-3); HEMATOCRIT 25.5 % (36.0-47.0); HEMOGLOBIN 8.1 g/dL (12.0-15.5); LYMPH # 0.9 x10^3/uL (1.0-4.8); LYMPH % 13 % (24-48); MEAN CORPUSCULAR HEMOGLOBIN 28 pg (25-35); MEAN CORPUSCULAR HGB CONC 32 g/dL (31-37); MEAN CORPUSCULAR VOLUME 89 fL (79-100); MONO % 9 % (0-9); NEUT % 76 % (31-73); PLATELET COUNT 85 x10^3/uL (140-400); RED BLOOD COUNT 2.87 x10^6/uL (3.50-5.40); RED CELL DISTRIBUTION WIDTH 16.1 % (11.5-14.5); WHITE BLOOD COUNT 6.6 x10^3/uL (4.0-11.0)
[2017-05-08 11:00] VITALS: BP 126/74
--- NOTE | 2017-05-08 11:03 | PDOC2 ---
GI CONSULT Reason For Consult: Elevated CEA, h/o colon cancer, now has SBO HPI: HPI: 67 y/o female admitted several days ago w/ n/ and abd pain, CT showed SBO which has resolved. Now stooling (last yesterday) and passing gas, tolerating some PO although vomited last night. History is a little difficult; she has a h/o colon cancer s/p resection (and radiation she says) at in 2004. Had EGD at that time also. No colonoscopy since. GI asked to see on this occasion re: elevated CEA and h/o colon cancer. Additional h/o anemia 2/2 CKD; has transfused 2 units pRBCs this admission, Hgb 8.1 today. Currently w/ temp dialysis cath. Denies obvious bleeding including hematemesis, hematochezia, and melena. Difficult to get a good feel for symptoms, but perhaps has chronic issues w/ nausea, early satiety and occasional heartburn. Takes Tums PRN. On PPN and Carafate here. S/p cholecystectomy, appendectomy, hysterectomy, and ventral hernia repairs. PMH: PMH: colon cancer, anemia related to CKD, HTN, CKD, cholecystectomy, hysterectomy, colon resection, apendectomy, bone marrow biopsy FH: Family History: No pertinent hx Social History: Smoke: No ALCOHOL: none Drugs: None ROS: GEN: Denies fevers, chills, sweats HEENT: Denies blurred vision, sore throat CV: Denies chest pain RESP: Denies shortness of air, cough GI: Per HPI : Denies hematuria, dysuria ENDO: weight loss NEURO: Denies confusion, dizziness MSK: weakness SKIN: Denies jaundice, pruritus Vitals: Vitals: Vital Signs Date Time Temp Pulse Resp B/P (MAP) Pulse Ox O2 Delivery O2 Flow Rate FiO2 05/08/17 09:02 74 125/66 05/08/17 07:39 92 Room Air 05/08/17 07:00 97.7 20 97.7 Labs: Labs: Laboratory Tests Test 05/08/17 04:50 White Blood Count 6.6 x10^3/uL (4.0-11.0) Red Blood Count 2.87 x10^6/uL (3.50-5.40) Hemoglobin 8.1 g/dL (12.0-15.5) Hematocrit 25.5 % (36.0-47.0) Mean Corpuscular Volume 89 fL (79-100) Mean Corpuscular Hemoglobin 28 pg (25-35) Mean Corpuscular Hemoglobin Concent 32 g/dL (31-37) Red Cell Distribution Width 16.1 % (11.5-14.5) Platelet Count 85 x10^3/uL (140-400) Neutrophils (%) (Auto) 76 % (31-73) Lymphocytes (%) (Auto) 13 % (24-48) Monocytes (%) (Auto) 9 % (0-9) Eosinophils (%) (Auto) 2 % (0-3) Basophils (%) (Auto) 0 % (0-3) Neutrophils # (Auto) 5.0 x10^3uL (1.8-7.7) Lymphocytes # (Auto) 0.9 x10^3/uL (1.0-4.8) Monocytes # (Auto) 0.6 x10^3/uL (0.0-1.1) Eosinophils # (Auto) 0.1 x10^3/uL (0.0-0.7) Basophils # (Auto) 0.0 x10^3/uL (0.0-0.2) Sodium Level 137 mmol/L (136-145) Potassium Level 4.0 mmol/L (3.5-5.1) Chloride Level 100 mmol/L (98-107) Carbon Dioxide Level 28 mmol/L (21-32) Anion Gap 9 (6-14) Blood Urea Nitrogen 65 mg/dL (7-20) Creatinine 3.3 mg/dL (0.6-1.0) Estimated GFR (Cockcroft-Gault) 13.9 Glucose Level 92 mg/dL (70-99) Calcium Level 8.1 mg/dL (8.5-10.1) Phosphorus Level 3.0 mg/dL (2.6-4.7) Magnesium Level 1.9 mg/dL (1.8-2.4) Albumin 2.7 g/dL (3.4-5.0) Allergies: Coded Allergies: Penicillins (Verified Allergy, Intermediate, rash, 09/05/13) Medications: Current Medications Medications (Trade) Dose Ordered Sig/Rebecca Route PRN Reason Start Time Stop Time Status Last Admin Dose Admin Sucralfate (Carafate) 1 gm QIDACHS PO 05/07/17 21:00 05/08/17 09:01 Imaging: Imaging: CT A/P 05/03/17 IMPRESSION: 1. Marked fluid and gas dilatation of distal small bowel loops up 5.2cm in the right lower quadrant with a C-shaped configuration and a focal transition point in the right lower quadrant near the terminal ileum compatible with high-grade small bowel obstruction, with concern for closed loop. 2. No mesenteric edema, pneumatosis or pneumoperitoneum. LE US 05/03/17 IMPRESSION: There is no sonographic evidence of deep vein thrombosis in either lower extremity. CXR 05/03/17 IMPRESSION: 1. Mild cardiomegaly and aortic atherosclerosis. 2. No acute abnormality is detected. Abd X-ray 05/04/17 IMPRESSION: High-grade mechanical small bowel obstruction is not suggested on this exam although ileus or partial mechanical obstruction are not excluded. Chest CT 05/08/17 PENDING PE: GEN: NAD HEENT: Atraumatic, PERRL LUNGS: CTAB anteriorly HEART: S1S2 ABD: BS+ some tympanic, protuberant hernia w/ midline scar - mildly tender EXTREMITY: No edema SKIN: No rashes, no jaundice NEURO/PSYCH: A & O 3 A/P: A/P: H/o colon cancer w/ elevated CEA -diagnosed in 2004 at [facility], s/p resection and radiation -no colonoscopy since SBO - resolved -emesis last night but taking some PO and stooling, also on TPN -multiple abd surgeries -protuberant hernia on exam, surgery following Nausea, early satiety Chronic anemia w/ CKD -- Started PPI. Reviewed w/ Dr. Riddle - JONOD sahil. D/w RN, GI lab - NPO now. GRISELDA EVANS May 08, 2017 11:03
--- NOTE | 2017-05-08 11:20 | RAD ---
Examination: CT chest without contrast History: History of colon cancer, respiratory distress Comparison: None available Technique: Axial CT images were performed without contrast. Coronal and sagittal reformats are performed. PQRS Compliance Statement: One or more of the following individualized dose reduction techniques were utilized for this examination: 1. Automated exposure control 2. Adjustment of the mA and/or kV according to patient size 3. Use of iterative reconstruction technique. Findings: The visualized thyroid gland grossly appears unremarkable. Mild cardiomegaly. Diffuse coronary artery calcifications. The ascending aorta measures 3.6 cm in transverse dimension. Small left pleural effusion with mild left lung base airspace opacity likely atelectasis or infiltrate. No radiologically significant mediastinal lymphadenopathy identified. Small right lung base airspace opacity likely atelectasis or infiltrate. The visualized noncontrasted liver, spleen, adrenals grossly appears unremarkable. Moderate degenerative changes thoracic spine. Impression: 1. Mild bibasal lung consolidation changes likely pneumonia or atelectasis. Follow-up to resolution. 2. Small left pleural effusion. 3. Diffuse coronary artery calcifications. Mild cardiomegaly.
--- NOTE | 2017-05-08 11:49 | PDOC ---
Renal-Progress Notes Subjective Notes Notes BETTER History of Present Illness Hx of present illness NO CHANGE Vitals Vitals Vital Signs Date Time Temp Pulse Resp B/P (MAP) Pulse Ox O2 Delivery O2 Flow Rate FiO2 05/08/17 11:05 Room Air 05/08/17 11:00 97.9 81 20 126/74 (91) 96 97.9 Weight Weight [ ] I.O. Intake and Output Intake and Output 05/09/17 07:00 Intake Total 300 ml Output Total 510 ml Balance -210 ml Intake Oral 300 ml Output Urine Total 510 ml # Voids 1 Labs Labs Laboratory Tests Test 05/08/17 04:50 White Blood Count 6.6 x10^3/uL (4.0-11.0) Red Blood Count 2.87 x10^6/uL (3.50-5.40) Hemoglobin 8.1 g/dL (12.0-15.5) Hematocrit 25.5 % (36.0-47.0) Mean Corpuscular Volume 89 fL (79-100) Mean Corpuscular Hemoglobin 28 pg (25-35) Mean Corpuscular Hemoglobin Concent 32 g/dL (31-37) Red Cell Distribution Width 16.1 % (11.5-14.5) Platelet Count 85 x10^3/uL (140-400) Neutrophils (%) (Auto) 76 % (31-73) Lymphocytes (%) (Auto) 13 % (24-48) Monocytes (%) (Auto) 9 % (0-9) Eosinophils (%) (Auto) 2 % (0-3) Basophils (%) (Auto) 0 % (0-3) Neutrophils # (Auto) 5.0 x10^3uL (1.8-7.7) Lymphocytes # (Auto) 0.9 x10^3/uL (1.0-4.8) Monocytes # (Auto) 0.6 x10^3/uL (0.0-1.1) Eosinophils # (Auto) 0.1 x10^3/uL (0.0-0.7) Basophils # (Auto) 0.0 x10^3/uL (0.0-0.2) Sodium Level 137 mmol/L (136-145) Potassium Level 4.0 mmol/L (3.5-5.1) Chloride Level 100 mmol/L (98-107) Carbon Dioxide Level 28 mmol/L (21-32) Anion Gap 9 (6-14) Blood Urea Nitrogen 65 mg/dL (7-20) Creatinine 3.3 mg/dL (0.6-1.0) Estimated GFR (Cockcroft-Gault) 13.9 Glucose Level 92 mg/dL (70-99) Calcium Level 8.1 mg/dL (8.5-10.1) Phosphorus Level 3.0 mg/dL (2.6-4.7) Magnesium Level 1.9 mg/dL (1.8-2.4) Albumin 2.7 g/dL (3.4-5.0) Micro Micro Microbiology 05/04/17 Urine Culture - Final, Complete 05/04/17 Urine Culture Result 1 (OLAMIDE) - Final, Complete 05/04/17 Antimicrobic Susceptibility - Final, Complete Review of Systems Constitutional: yes: malaise, weakness, alert, oriented Ears/Nose/Throat: Yes: no symptom reported Eyes: Yes: no symptom reported Cardiovascular: Yes no symptom reported Gastrointestional: Yes: nausea Genitourinary: Yes: no symptom reported Musculoskeletal: Yes: muscle stiffness Skin: Yes no symptom reported Psychiatric/Neurological: Yes: no symptom reported Endocrine: Yes: no symptom reported Hematologic/Lymphatic: Yes: no symptom reported Physical Exam General Appearance: no apparent distress Skin: warm Respiratory: decreased breath sounds Heart: S1S2, RRR Abdomen: soft, other (HYPOACTIVE) Extremities: pulses present, no edema Neurology: alert Assessment Assessment IMP CKD 4 WITH CR OF ABOUT 2.5 AT BASELINE [place] WITH CR OF ABOUT 5.0 AND NOW DOWN TO 3.3 ANEMIA SBO VS ILEUS PLAN EATING WELL WILL STOP HER PPN LABS IN AM NO NEED FOR DIALYSIS LIONEL BRAGA MD May 08, 2017 11:49
[2017-05-08] MEDS: traMADol 50 MG TABLET PO PRN (12:12)
[2017-05-08] MEDS: PANTOPRAZOLE 40 MG TABLET.DR. PO SCH (12:12)
--- NOTE | 2017-05-08 12:38 | PDOC ---
SURGICAL PROGRESS NOTE Subjective was a little nauseated earlier, but taking diet Vital Signs Vital Signs Date Time Temp Pulse Resp B/P (MAP) Pulse Ox O2 Delivery O2 Flow Rate FiO2 05/08/17 12:12 Room Air 05/08/17 11:00 97.9 81 20 126/74 (91) 96 97.9 I&O Intake and Output 05/09/17 07:00 Intake Total 300 ml Output Total 510 ml Balance -210 ml Intake Oral 300 ml Output Urine Total 510 ml # Voids 1 PATIENT HAS A MOYA: No General: Alert, Cooperative, No acute distress Abdomen: Soft, No tenderness Labs Laboratory Tests Test 05/07/17 05:00 05/08/17 04:50 Sodium Level 135 mmol/L (136-145) 137 mmol/L (136-145) Potassium Level 3.8 mmol/L (3.5-5.1) 4.0 mmol/L (3.5-5.1) Chloride Level 103 mmol/L (98-107) 100 mmol/L (98-107) Carbon Dioxide Level 23 mmol/L (21-32) 28 mmol/L (21-32) Anion Gap 9 (6-14) 9 (6-14) Blood Urea Nitrogen 62 mg/dL (7-20) 65 mg/dL (7-20) Creatinine 3.4 mg/dL (0.6-1.0) 3.3 mg/dL (0.6-1.0) Estimated GFR (Cockcroft-Gault) 13.4 13.9 Glucose Level 90 mg/dL (70-99) 92 mg/dL (70-99) Calcium Level 7.7 mg/dL (8.5-10.1) 8.1 mg/dL (8.5-10.1) Phosphorus Level 3.5 mg/dL (2.6-4.7) 3.0 mg/dL (2.6-4.7) Magnesium Level 1.8 mg/dL (1.8-2.4) 1.9 mg/dL (1.8-2.4) Albumin 2.5 g/dL (3.4-5.0) 2.7 g/dL (3.4-5.0) White Blood Count 6.6 x10^3/uL (4.0-11.0) Red Blood Count 2.87 x10^6/uL (3.50-5.40) Hemoglobin 8.1 g/dL (12.0-15.5) Hematocrit 25.5 % (36.0-47.0) Mean Corpuscular Volume 89 fL (79-100) Mean Corpuscular Hemoglobin 28 pg (25-35) Mean Corpuscular Hemoglobin Concent 32 g/dL (31-37) Red Cell Distribution Width 16.1 % (11.5-14.5) Platelet Count 85 x10^3/uL (140-400) Neutrophils (%) (Auto) 76 % (31-73) Lymphocytes (%) (Auto) 13 % (24-48) Monocytes (%) (Auto) 9 % (0-9) Eosinophils (%) (Auto) 2 % (0-3) Basophils (%) (Auto) 0 % (0-3) Neutrophils # (Auto) 5.0 x10^3uL (1.8-7.7) Lymphocytes # (Auto) 0.9 x10^3/uL (1.0-4.8) Monocytes # (Auto) 0.6 x10^3/uL (0.0-1.1) Eosinophils # (Auto) 0.1 x10^3/uL (0.0-0.7) Basophils # (Auto) 0.0 x10^3/uL (0.0-0.2) Laboratory Tests Test 05/08/17 04:50 White Blood Count 6.6 x10^3/uL (4.0-11.0) Red Blood Count 2.87 x10^6/uL (3.50-5.40) Hemoglobin 8.1 g/dL (12.0-15.5) Hematocrit 25.5 % (36.0-47.0) Mean Corpuscular Volume 89 fL (79-100) Mean Corpuscular Hemoglobin 28 pg (25-35) Mean Corpuscular Hemoglobin Concent 32 g/dL (31-37) Red Cell Distribution Width 16.1 % (11.5-14.5) Platelet Count 85 x10^3/uL (140-400) Neutrophils (%) (Auto) 76 % (31-73) Lymphocytes (%) (Auto) 13 % (24-48) Monocytes (%) (Auto) 9 % (0-9) Eosinophils (%) (Auto) 2 % (0-3) Basophils (%) (Auto) 0 % (0-3) Neutrophils # (Auto) 5.0 x10^3uL (1.8-7.7) Lymphocytes # (Auto) 0.9 x10^3/uL (1.0-4.8) Monocytes # (Auto) 0.6 x10^3/uL (0.0-1.1) Eosinophils # (Auto) 0.1 x10^3/uL (0.0-0.7) Basophils # (Auto) 0.0 x10^3/uL (0.0-0.2) Sodium Level 137 mmol/L (136-145) Potassium Level 4.0 mmol/L (3.5-5.1) Chloride Level 100 mmol/L (98-107) Carbon Dioxide Level 28 mmol/L (21-32) Anion Gap 9 (6-14) Blood Urea Nitrogen 65 mg/dL (7-20) Creatinine 3.3 mg/dL (0.6-1.0) Estimated GFR (Cockcroft-Gault) 13.9 Glucose Level 92 mg/dL (70-99) Calcium Level 8.1 mg/dL (8.5-10.1) Phosphorus Level 3.0 mg/dL (2.6-4.7) Magnesium Level 1.9 mg/dL (1.8-2.4) Albumin 2.7 g/dL (3.4-5.0) Problem List Problems Medical Problems: (1) Anemia Status: Acute (2) Renal failure Status: Acute Assessment/Plan ileus/pSBO improving ARF resolved continue supportive care no new surgical recs Problems: NEMESIO BRICENO MD May 08, 2017 12:38
[2017-05-08 15:00] VITALS: BP 114/68
--- NOTE | 2017-05-08 16:09 | PDOC ---
PROGRESS NOTES Chief Complaint Chief Complaint Small-bowel obstruction. surgical following, ongoing nausea, Acute on chronic renal failure, on CKD 4-5, oliguria, suspect ATN, anemia, symptomatic w/ thrombocytopenia dehydration, w/ nausea and vomiting. acute metabolic gap acidosis Prior Hx of colon cancer. History of Present Illness History of Present Illness nausea this AM persists some PO intake hgb better GI consulted renal following acidosis, SANGITA on CKD Vitals Vitals Vital Signs Date Time Temp Pulse Resp B/P (MAP) Pulse Ox O2 Delivery O2 Flow Rate FiO2 05/08/17 15:52 Room Air 05/08/17 11:00 97.9 81 20 126/74 (91) 96 97.9 Physical Exam General: Alert, Cooperative, No acute distress Heart: Normal S1, Normal S2 Lungs: Clear Abdomen: Soft, No tenderness Skin: No rashes Labs LABS Laboratory Tests Test 05/08/17 04:50 05/08/17 15:57 White Blood Count 6.6 x10^3/uL (4.0-11.0) Red Blood Count 2.87 x10^6/uL (3.50-5.40) Hemoglobin 8.1 g/dL (12.0-15.5) Hematocrit 25.5 % (36.0-47.0) Mean Corpuscular Volume 89 fL (79-100) Mean Corpuscular Hemoglobin 28 pg (25-35) Mean Corpuscular Hemoglobin Concent 32 g/dL (31-37) Red Cell Distribution Width 16.1 % (11.5-14.5) Platelet Count 85 x10^3/uL (140-400) Neutrophils (%) (Auto) 76 % (31-73) Lymphocytes (%) (Auto) 13 % (24-48) Monocytes (%) (Auto) 9 % (0-9) Eosinophils (%) (Auto) 2 % (0-3) Basophils (%) (Auto) 0 % (0-3) Neutrophils # (Auto) 5.0 x10^3uL (1.8-7.7) Lymphocytes # (Auto) 0.9 x10^3/uL (1.0-4.8) Monocytes # (Auto) 0.6 x10^3/uL (0.0-1.1) Eosinophils # (Auto) 0.1 x10^3/uL (0.0-0.7) Basophils # (Auto) 0.0 x10^3/uL (0.0-0.2) Sodium Level 137 mmol/L (136-145) Potassium Level 4.0 mmol/L (3.5-5.1) Chloride Level 100 mmol/L (98-107) Carbon Dioxide Level 28 mmol/L (21-32) Anion Gap 9 (6-14) Blood Urea Nitrogen 65 mg/dL (7-20) Creatinine 3.3 mg/dL (0.6-1.0) Estimated GFR (Cockcroft-Gault) 13.9 Glucose Level 92 mg/dL (70-99) Calcium Level 8.1 mg/dL (8.5-10.1) Phosphorus Level 3.0 mg/dL (2.6-4.7) Magnesium Level 1.9 mg/dL (1.8-2.4) Albumin 2.7 g/dL (3.4-5.0) Glucose (Fingerstick) 68 mg/dL (70-99) Assessment and Plan Assessmemt and Plan Problems Medical Problems: (1) Anemia Status: Acute (2) Renal failure Status: Acute Problems: Comment Review of Relevant I have reviewed the following items yoel (where applicable) has been applied. Labs Laboratory Tests Test 05/07/17 05:00 05/08/17 04:50 05/08/17 15:57 Sodium Level 135 mmol/L (136-145) 137 mmol/L (136-145) Potassium Level 3.8 mmol/L (3.5-5.1) 4.0 mmol/L (3.5-5.1) Chloride Level 103 mmol/L (98-107) 100 mmol/L (98-107) Carbon Dioxide Level 23 mmol/L (21-32) 28 mmol/L (21-32) Anion Gap 9 (6-14) 9 (6-14) Blood Urea Nitrogen 62 mg/dL (7-20) 65 mg/dL (7-20) Creatinine 3.4 mg/dL (0.6-1.0) 3.3 mg/dL (0.6-1.0) Estimated GFR (Cockcroft-Gault) 13.4 13.9 Glucose Level 90 mg/dL (70-99) 92 mg/dL (70-99) Calcium Level 7.7 mg/dL (8.5-10.1) 8.1 mg/dL (8.5-10.1) Phosphorus Level 3.5 mg/dL (2.6-4.7) 3.0 mg/dL (2.6-4.7) Magnesium Level 1.8 mg/dL (1.8-2.4) 1.9 mg/dL (1.8-2.4) Albumin 2.5 g/dL (3.4-5.0) 2.7 g/dL (3.4-5.0) White Blood Count 6.6 x10^3/uL (4.0-11.0) Red Blood Count 2.87 x10^6/uL (3.50-5.40) Hemoglobin 8.1 g/dL (12.0-15.5) Hematocrit 25.5 % (36.0-47.0) Mean Corpuscular Volume 89 fL (79-100) Mean Corpuscular Hemoglobin 28 pg (25-35) Mean Corpuscular Hemoglobin Concent 32 g/dL (31-37) Red Cell Distribution Width 16.1 % (11.5-14.5) Platelet Count 85 x10^3/uL (140-400) Neutrophils (%) (Auto) 76 % (31-73) Lymphocytes (%) (Auto) 13 % (24-48) Monocytes (%) (Auto) 9 % (0-9) Eosinophils (%) (Auto) 2 % (0-3) Basophils (%) (Auto) 0 % (0-3) Neutrophils # (Auto) 5.0 x10^3uL (1.8-7.7) Lymphocytes # (Auto) 0.9 x10^3/uL (1.0-4.8) Monocytes # (Auto) 0.6 x10^3/uL (0.0-1.1) Eosinophils # (Auto) 0.1 x10^3/uL (0.0-0.7) Basophils # (Auto) 0.0 x10^3/uL (0.0-0.2) Glucose (Fingerstick) 68 mg/dL (70-99) Laboratory Tests Test 05/08/17 04:50 05/08/17 15:57 White Blood Count 6.6 x10^3/uL (4.0-11.0) Red Blood Count 2.87 x10^6/uL (3.50-5.40) Hemoglobin 8.1 g/dL (12.0-15.5) Hematocrit 25.5 % (36.0-47.0) Mean Corpuscular Volume 89 fL (79-100) Mean Corpuscular Hemoglobin 28 pg (25-35) Mean Corpuscular Hemoglobin Concent 32 g/dL (31-37) Red Cell Distribution Width 16.1 % (11.5-14.5) Platelet Count 85 x10^3/uL (140-400) Neutrophils (%) (Auto) 76 % (31-73) Lymphocytes (%) (Auto) 13 % (24-48) Monocytes (%) (Auto) 9 % (0-9) Eosinophils (%) (Auto) 2 % (0-3) Basophils (%) (Auto) 0 % (0-3) Neutrophils # (Auto) 5.0 x10^3uL (1.8-7.7) Lymphocytes # (Auto) 0.9 x10^3/uL (1.0-4.8) Monocytes # (Auto) 0.6 x10^3/uL (0.0-1.1) Eosinophils # (Auto) 0.1 x10^3/uL (0.0-0.7) Basophils # (Auto) 0.0 x10^3/uL (0.0-0.2) Sodium Level 137 mmol/L (136-145) Potassium Level 4.0 mmol/L (3.5-5.1) Chloride Level 100 mmol/L (98-107) Carbon Dioxide Level 28 mmol/L (21-32) Anion Gap 9 (6-14) Blood Urea Nitrogen 65 mg/dL (7-20) Creatinine 3.3 mg/dL (0.6-1.0) Estimated GFR (Cockcroft-Gault) 13.9 Glucose Level 92 mg/dL (70-99) Calcium Level 8.1 mg/dL (8.5-10.1) Phosphorus Level 3.0 mg/dL (2.6-4.7) Magnesium Level 1.9 mg/dL (1.8-2.4) Albumin 2.7 g/dL (3.4-5.0) Glucose (Fingerstick) 68 mg/dL (70-99) Microbiology 05/04/17 Urine Culture - Final, Complete 05/04/17 Urine Culture Result 1 (OLAMIDE) - Final, Complete 05/04/17 Antimicrobic Susceptibility - Final, Complete Medications Current Medications Ondansetron HCl (Zofran) 4 mg 1X ONCE IV Last administered on 05/02/17 23:27 ; Start 05/02/17 at 23:15; Stop 05/02/17 at 23:16; Status DC Multi-Ingredient Mouthwash/Gargle (Gi Cocktail Single Dose) 15 ml 1X ONCE SWSW Last administered on 05/02/17 23:27; Start 05/02/17 at 23:15; Stop 05/02/17 at 23:16; Status DC Sodium Bicarbonate 100 meq 1X ONCE IV Last administered on 05/03/17 01:17; Start 05/03/17 at 01:15; Stop 05/03/17 at 01:16; Status DC Ondansetron HCl (Zofran) 4 mg PRN Q8HRS PRN IV NAUSEA/VOMITING; Start 05/03/17 at 01:15; Stop 05/04/17 at 01:14; Status DC Morphine Sulfate 2 mg PRN Q2HR PRN IV PAIN; Start 05/03/17 at 01:15; Stop 05/04 at 01:14; Status DC Sodium Chloride 1,000 ml @ 125 mls/hr 1X ONCE IV Last administered on 04:45; Start 05/03/17 at 04:30; Stop 05/04/17 at 10:02; Status DC Magnesium Sulfate/ Dextrose 50 ml @ 25 mls/hr PRN DAILY PRN IV for Mag < 1.7 on am labs; Start 05/03/17 at 09:15 Sodium Bicarbonate 75 meq/Sodium Chloride 1,075 ml @ 75 mls/hr [id number] IV Last administered on 05/03/17 17:17; Start 05/03/17 at 10:00; Stop 05/03/17 at 21:50; Status DC Budesonide (Pulmicort) 0.5 mg RTBID NEB Last administered on 05/08/17 07:37; Start 05/03/17 at 12:00 Sodium Chloride 1,000 ml @ 250 mls/hr 1X ONCE IV Last administered on 13:17; Start 05/03/17 at 12:30; Stop 05/03/17 at 16:44; Status DC Amlodipine Besylate (Norvasc) 10 mg DAILY08 PO Last administered on 05/08/17 09:02; Start 05/03/17 at 15:00 Calcitriol (Rocaltrol) 0.25 mcg DAILY PO Last administered on 05/08/17 09:01; Start 05/03/17 at 15:00 Vitamin B Complex (Folbic Tablet) 1 tab DAILY PO Last administered on 09:02; Start 05/03/17 at 15:00 Ergocalciferol (Vitamin D2) 50,000 unit WEEKLY PO ; Start 05/10/17 at 09:00 Non-Formulary Medication 50 mcg BID IH ; Start 05/03/17 at 21:00; Stop 05/03/17 at 21:00; Status DC Loperamide HCl (Imodium) 2 mg DAILY08 PO Last administered on 05/05/17 09:30; Start 05/03/17 at 15:00; Stop 05/05/17 at 10:49; Status DC Sodium Chloride 1,000 ml @ 100 mls/hr Q10H IV Last administered on 05/04/17 06:01; Start 05/03/17 at 21:30; Stop 05/04/17 at 07:04; Status DC Sodium Chloride 1,000 ml @ 100 mls/hr Q10H IV Last administered on 05/04/17 07:10; Start 05/04/17 at 07:30; Stop 05/04/17 at 10:02; Status DC Sodium Bicarbonate 75 meq/Potassium Acetate 20 meq/ Dextrose 1,085 ml @ 50 mls/ hr [id number] IV Last administered on 05/07/17 21:14; Start 05/04/17 at 10:00 Darbepoetin Jono (Aranesp) 60 mcg [id number] SQ Last administered on 05/04/17 20 :51; Start 05/04/17 at 21:00 Lidocaine/Sodium Bicarbonate (Buffered Lidocaine 1%) 20 ml STK-MED ONCE IJ ; Start 05/04/17 at 10:23; Stop 05/04/17 at 10:24; Status DC Heparin Sodium (Porcine) (Heparin Sodium) 10,000 unit STK-MED ONCE .ROUTE ; Start 05/04/17 at 10:23; Stop 05/04/17 at 10:24; Status DC Heparin Sodium/ Sodium Chloride 500 ml @ As Directed STK-MED ONCE .ROUTE ; Start 05/04/17 at 10:23; Stop 05/04/17 at 10:24; Status DC Lidocaine/Sodium Bicarbonate (Buffered Lidocaine 1%) 20 ml 1X ONCE IJ Last administered on 05/04/17 11:22; Start 05/04/17 at 11:00; Stop 05/04/17 at 11:02 ; Status DC Heparin Sodium/ Sodium Chloride 1,000 unit 1X ONCE IV Last administered on 11:23; Start 05/04/17 at 11:00; Stop 05/04/17 at 11:02; Status DC Heparin Sodium (Porcine) (Heparin Sodium) 2,600 unit 1X ONCE INT CAT Last administered on 05/04/17 11:22; Start 05/04/17 at 11:00; Stop 05/04/17 at 11:02 ; Status DC Acetaminophen (Tylenol) 650 mg PRN Q6HRS PRN PO MILD PAIN Last administered on 05/04/17 18:10; Start 05/04/17 at 18:15 Tramadol HCl (Ultram) 50 mg PRN Q6HRS PRN PO PAIN Last administered on 12:12; Start 05/04/17 at 18:15 Morphine Sulfate 2 mg PRN Q4HRS PRN IV PAIN Last administered on 05/08/17 02: 24; Start 05/04/17 at 18:15 Magnesium Sulfate/ Dextrose 50 ml @ 25 mls/hr 1X ONCE IV Last administered on 05/05/17 02:52; Start 05/05/17 at 02:45; Stop 05/05/17 at 04:44; Status DC Albuterol/ Ipratropium (Duoneb) 3 ml RTQID NEB Last administered on 05/08/17 15:52; Start 05/05/17 at 09:30 Amino Acids/ Glycerin/ Electrolytes 1,000 ml @ 80 mls/hr [id number] IV Last administered on 05/08/17 02:14; Start 05/05/17 at 11:30; Stop 05/08/17 at 11:50 ; Status DC Calcium Carbonate/ Glycine (Oscal) 500 mg TIDAFTMEAL PO Last administered on 09:01; Start 05/07/17 at 09:15 Ondansetron HCl (Zofran) 4 mg PRN Q8HRS PRN IV NAUSEA/VOMITING Last administered on 05/08/17 02:24; Start 05/07/17 at 09:15 Al Hydroxide/Mg Hydroxide (Mylanta Plus Xs) 30 ml PRN Q6HRS PRN PO HEARTBURN / GAS Last administered on 05/08/17 02:24; Start 05/07/17 at 09:15 Sucralfate (Carafate) 1 gm QIDACHS PO Last administered on 05/08/17 12:12; Start 05/07/17 at 21:00 Pantoprazole Sodium (Protonix) 40 mg DAILYAC PO Last administered on 05/08/17 12:12; Start 05/08/17 at 11:30 Active Scripts Active Vitamin D2 (Ergocalciferol (Vitamin D2)) 50,000 Unit Capsule 50,000 Unit PO WEEKLY Folbic Tablet (Cyanocobalamin/Fa/Pyridoxine) 1 Each Tablet 1 Tab PO DAILY Calcitriol 0.25 Mcg Capsule 0.25 Mcg PO DAILY Reported Flovent 50MCG Diskus (Fluticasone Propionate) 50 Mcg Disk.w.dev 50 Mcg IH BID Imodium A-D (Loperamide Hcl) 1 Mg/7.5 Ml Liquid 2 Mg PO DAILY08 Norvasc (Amlodipine Besylate) 10 Mg Tablet 10 Mg PO DAILY08 Vitals/I & O Vital Sign - Last 24 Hours 05/07/17 05/07/17 05/07/17 05/07/17 16:48 19:00 19:28 20:08 Temp 98.3 98.3 Pulse 96 Resp 20 B/P (MAP) 131/89 (103) Pulse Ox 95 96 97 O2 Delivery Room Air Room Air Room Air 05/07/17 05/07/17 05/08/17 05/08/17 20:09 23:00 02:24 02:54 Temp 98.2 98.2 Pulse 82 Resp 20 18 18 B/P (MAP) 117/67 (84) Pulse Ox 97 92 92 95 O2 Delivery Room Air Room Air Room Air Room Air 05/08/17 05/08/17 05/08/17 05/08/17 03:17 07:00 07:39 09:02 Temp 98.3 97.7 98.3 97.7 Pulse 74 74 74 Resp 20 20 B/P (MAP) 116/72 (87) 125/66 (85) 125/66 Pulse Ox 95 94 92 O2 Delivery Room Air Room Air Room Air 05/08/17 05/08/17 05/08/17 05/08/17 11:00 11:05 12:12 13:12 Temp 97.9 97.9 Pulse 81 Resp 20 B/P (MAP) 126/74 (91) Pulse Ox 96 O2 Delivery Room Air Room Air Room Air Room Air 05/08/17 15:52 O2 Delivery Room Air Intake and Output 05/08/17 05/08/17 05/09/17 15:00 23:00 07:00 Intake Total 300 ml Output Total 510 ml Balance -210 ml JONY PRIEST MD May 08, 2017 16:09
[2017-05-08] MEDS: IV RINGERS,LACTATED 1000ML 1,000 ML IV SCH (16:15)
[2017-05-08] MEDS ORDERED: fentaNYL PF VIAL 100 MCG/2 ML VIAL ONE (17:03)
[2017-05-08] MEDS ORDERED: MIDAZOLAM HCL/PF 5 MG/5 ML VIAL. ONE (17:03)
[2017-05-08] MEDS ORDERED: MIDAZOLAM HCL/PF 5 MG/5 ML VIAL. IV ONE ×3 (17:14→17:24)
[2017-05-08] MEDS ORDERED: fentaNYL PF VIAL 100 MCG/2 ML VIAL IV ONE (17:16)
--- NOTE | 2017-05-08 17:30 | PDOC4 ---
Operative Note Operative Note EGD Meds Versed 3 mg/Fentanyl 25 mcg IV Pre-op dx iron deficiency anemia Post-op dx non-erosive gastritis Plan advance diet o/p colonoscopy with history of colon cancer. LUKE NGUYEN MD May 08, 2017 17:30
[2017-05-08 19:00] VITALS: BP 114/69
[2017-05-08] MEDS: SODIUM BICARBONATE IV SCH (20:36)
[2017-05-08] MEDS: POTASSIUM ACETATE IV SCH (20:36)
[2017-05-08] MEDS: DEXTROSE 5% IV SCH (20:36)
[2017-05-08 23:00] VITALS: BP 101/56
[2017-05-09] MEDS: IV RINGERS,LACTATED 1000ML 1,000 ML IV SCH (02:59)
[2017-05-09 03:00] VITALS: BP 109/62
[2017-05-09 06:11] LABS: BASO % 1 % (0-3); EOS % 3 % (0-3); HEMATOCRIT 24.3 % (36.0-47.0); HEMOGLOBIN 7.8 g/dL (12.0-15.5); LYMPH # 1.1 x10^3/uL (1.0-4.8); LYMPH % 20 % (24-48); MEAN CORPUSCULAR HEMOGLOBIN 29 pg (25-35); MEAN CORPUSCULAR HGB CONC 32 g/dL (31-37); MEAN CORPUSCULAR VOLUME 89 fL (79-100); MONO % 9 % (0-9); NEUT % 68 % (31-73); PLATELET COUNT 95 x10^3/uL (140-400); RED BLOOD COUNT 2.74 x10^6/uL (3.50-5.40); RED CELL DISTRIBUTION WIDTH 15.7 % (11.5-14.5); WHITE BLOOD COUNT 5.5 x10^3/uL (4.0-11.0)
[2017-05-09 06:37] LABS: ALBUMIN 2.6 g/dL (3.4-5.0); ALBUMIN/GLOBULIN RATIO 0.9 (1.0-1.7); CALCIUM 8.4 mg/dL (8.5-10.1); CREATININE 3.3 mg/dL (0.6-1.0); GFR 13.9; PHOSPHORUS 2.8 mg/dL (2.6-4.7); TOTAL BILIRUBIN 0.2 mg/dL (0.2-1.0); TOTAL PROTEIN 5.4 g/dL (6.4-8.2)
[2017-05-09 07:00] VITALS: BP 107/54
[2017-05-09] MEDS: IPRATRPIUM/ALBUTEROL 0.5/2.5MG 3 ML NEBU. NEB SCH ×4 (07:13→19:22)
[2017-05-09] MEDS: BUDESONIDE 0.5 MG/2 ML NEBU. NEB SCH ×2 (07:13→19:22)
[2017-05-09] MEDS: PANTOPRAZOLE 40 MG TABLET.DR. PO SCH (08:39)
[2017-05-09] MEDS: VITAMIN B12,B9,B6 COMPLEX 1 TABLET. PO SCH (08:39)
[2017-05-09] MEDS: ACETAMINOPHEN 325 MG TABLET. PO PRN (08:39)
[2017-05-09] MEDS: SUCRALFATE 1 GM TABLET. PO SCH ×4 (08:39→21:37)
[2017-05-09] MEDS: amLODIPine BESYLATE 10 MG TABLET PO SCH (08:39)
[2017-05-09] MEDS: CALCIUM CARBONATE 500 MG TABLET PO SCH ×3 (08:39→17:19)
[2017-05-09] MEDS: CALCITRIOL 0.25 MCG CAPSULE. PO SCH (08:40)
--- NOTE | 2017-05-09 09:11 | PDOC ---
PROGRESS NOTES Subjective Subjective c/c - f/u of Small-bowel obstruction ROS - no abd pain Objective Objective Vital Signs Date Time Temp Pulse Resp B/P (MAP) Pulse Ox O2 Delivery O2 Flow Rate FiO2 05/09/17 08:39 74 109/62 05/09/17 07:57 Room Air 05/09/17 07:14 93 05/09/17 07:00 97.8 20 97.8 05/08/17 20:00 2.0 Physical Exam Heart: Normal S1, Normal S2 General: Alert, Oriented X3 Lungs: Clear to auscultation Neuro: Normal speech Assessment Assessment Problems Medical Problems: (1) Anemia Status: Acute (2) Renal failure Status: Acute IMPRESSION AND PLAN: 1. Small-bowel obstruction. Appreciate surgical consultation and management. 2. Anemia due to CKD. She has history of B12 deficiency. B12 levels are now normal. Agree to monitor Hb and transfuse as needed. Agree with aranesp. 3. Thrombocytopenia. Reactive, B12 is now normal. h/o pancytopenia due to B12 def in past - bone marrow bx 08/06/16: Path report: The constellation of peripheral blood, bone marrow, and clinical laboratory findings are compatible with B12 deficiency. 4. Colon cancer in the past per pt. I obtained pathology records from [facility] since 1999 and there is no evidence of cancer. She had mentioned that the surgery was done at [facility] for cancer. She now mentions that it was done at . I will obtain records. CT scan does not reveal any evidence of recurrent colon cancer. CEA elevated 6.3 on 05/04/17, consulted GI. EGD 05/08/17 reveals non-erosive gastritis. I d/w Dr Riddle. CT chest 05/09/17 is neg for mets.. Comment Review of Relevant I have reviewed the following items yoel (where applicable) has been applied. Labs Laboratory Tests Test 05/08/17 04:50 05/08/17 15:57 05/09/17 05:30 White Blood Count 6.6 x10^3/uL (4.0-11.0) 5.5 x10^3/uL (4.0-11.0) Red Blood Count 2.87 x10^6/uL (3.50-5.40) 2.74 x10^6/uL (3.50-5.40) Hemoglobin 8.1 g/dL (12.0-15.5) 7.8 g/dL (12.0-15.5) Hematocrit 25.5 % (36.0-47.0) 24.3 % (36.0-47.0) Mean Corpuscular Volume 89 fL (79-100) 89 fL (79-100) Mean Corpuscular Hemoglobin 28 pg (25-35) 29 pg (25-35) Mean Corpuscular Hemoglobin Concent 32 g/dL (31-37) 32 g/dL (31-37) Red Cell Distribution Width 16.1 % (11.5-14.5) 15.7 % (11.5-14.5) Platelet Count 85 x10^3/uL (140-400) 95 x10^3/uL (140-400) Neutrophils (%) (Auto) 76 % (31-73) 68 % (31-73) Lymphocytes (%) (Auto) 13 % (24-48) 20 % (24-48) Monocytes (%) (Auto) 9 % (0-9) 9 % (0-9) Eosinophils (%) (Auto) 2 % (0-3) 3 % (0-3) Basophils (%) (Auto) 0 % (0-3) 1 % (0-3) Neutrophils # (Auto) 5.0 x10^3uL (1.8-7.7) 3.7 x10^3uL (1.8-7.7) Lymphocytes # (Auto) 0.9 x10^3/uL (1.0-4.8) 1.1 x10^3/uL (1.0-4.8) Monocytes # (Auto) 0.6 x10^3/uL (0.0-1.1) 0.5 x10^3/uL (0.0-1.1) Eosinophils # (Auto) 0.1 x10^3/uL (0.0-0.7) 0.1 x10^3/uL (0.0-0.7) Basophils # (Auto) 0.0 x10^3/uL (0.0-0.2) 0.0 x10^3/uL (0.0-0.2) Sodium Level 137 mmol/L (136-145) 138 mmol/L (136-145) Potassium Level 4.0 mmol/L (3.5-5.1) 5.0 mmol/L (3.5-5.1) Chloride Level 100 mmol/L (98-107) 103 mmol/L (98-107) Carbon Dioxide Level 28 mmol/L (21-32) 28 mmol/L (21-32) Anion Gap 9 (6-14) 7 (6-14) Blood Urea Nitrogen 65 mg/dL (7-20) 69 mg/dL (7-20) Creatinine 3.3 mg/dL (0.6-1.0) 3.3 mg/dL (0.6-1.0) Estimated GFR (Cockcroft-Gault) 13.9 13.9 Glucose Level 92 mg/dL (70-99) 83 mg/dL (70-99) Calcium Level 8.1 mg/dL (8.5-10.1) 8.4 mg/dL (8.5-10.1) Phosphorus Level 3.0 mg/dL (2.6-4.7) 2.8 mg/dL (2.6-4.7) Magnesium Level 1.9 mg/dL (1.8-2.4) Albumin 2.7 g/dL (3.4-5.0) 2.6 g/dL (3.4-5.0) Glucose (Fingerstick) 68 mg/dL (70-99) BUN/Creatinine Ratio 21 (6-20) Total Bilirubin 0.2 mg/dL (0.2-1.0) Aspartate Amino Transf (AST/SGOT) 20 U/L (15-37) Alanine Aminotransferase (ALT/SGPT) 19 U/L (14-59) Alkaline Phosphatase 56 U/L (46-116) Total Protein 5.4 g/dL (6.4-8.2) Albumin/Globulin Ratio 0.9 (1.0-1.7) Laboratory Tests Test 05/08/17 15:57 05/09/17 05:30 Glucose (Fingerstick) 68 mg/dL (70-99) White Blood Count 5.5 x10^3/uL (4.0-11.0) Red Blood Count 2.74 x10^6/uL (3.50-5.40) Hemoglobin 7.8 g/dL (12.0-15.5) Hematocrit 24.3 % (36.0-47.0) Mean Corpuscular Volume 89 fL (79-100) Mean Corpuscular Hemoglobin 29 pg (25-35) Mean Corpuscular Hemoglobin Concent 32 g/dL (31-37) Red Cell Distribution Width 15.7 % (11.5-14.5) Platelet Count 95 x10^3/uL (140-400) Neutrophils (%) (Auto) 68 % (31-73) Lymphocytes (%) (Auto) 20 % (24-48) Monocytes (%) (Auto) 9 % (0-9) Eosinophils (%) (Auto) 3 % (0-3) Basophils (%) (Auto) 1 % (0-3) Neutrophils # (Auto) 3.7 x10^3uL (1.8-7.7) Lymphocytes # (Auto) 1.1 x10^3/uL (1.0-4.8) Monocytes # (Auto) 0.5 x10^3/uL (0.0-1.1) Eosinophils # (Auto) 0.1 x10^3/uL (0.0-0.7) Basophils # (Auto) 0.0 x10^3/uL (0.0-0.2) Sodium Level 138 mmol/L (136-145) Potassium Level 5.0 mmol/L (3.5-5.1) Chloride Level 103 mmol/L (98-107) Carbon Dioxide Level 28 mmol/L (21-32) Anion Gap 7 (6-14) Blood Urea Nitrogen 69 mg/dL (7-20) Creatinine 3.3 mg/dL (0.6-1.0) Estimated GFR (Cockcroft-Gault) 13.9 BUN/Creatinine Ratio 21 (6-20) Glucose Level 83 mg/dL (70-99) Calcium Level 8.4 mg/dL (8.5-10.1) Phosphorus Level 2.8 mg/dL (2.6-4.7) Total Bilirubin 0.2 mg/dL (0.2-1.0) Aspartate Amino Transf (AST/SGOT) 20 U/L (15-37) Alanine Aminotransferase (ALT/SGPT) 19 U/L (14-59) Alkaline Phosphatase 56 U/L (46-116) Total Protein 5.4 g/dL (6.4-8.2) Albumin 2.6 g/dL (3.4-5.0) Albumin/Globulin Ratio 0.9 (1.0-1.7) Microbiology 05/04/17 Urine Culture - Final, Complete 05/04/17 Urine Culture Result 1 (OLAMIDE) - Final, Complete 05/04/17 Antimicrobic Susceptibility - Final, Complete Medications Current Medications Ondansetron HCl (Zofran) 4 mg 1X ONCE IV Last administered on 05/02/17 23:27 ; Start 05/02/17 at 23:15; Stop 05/02/17 at 23:16; Status DC Multi-Ingredient Mouthwash/Gargle (Gi Cocktail Single Dose) 15 ml 1X ONCE SWSW Last administered on 05/02/17 23:27; Start 05/02/17 at 23:15; Stop 05/02/17 at 23:16; Status DC Sodium Bicarbonate 100 meq 1X ONCE IV Last administered on 05/03/17 01:17; Start 05/03/17 at 01:15; Stop 05/03/17 at 01:16; Status DC Ondansetron HCl (Zofran) 4 mg PRN Q8HRS PRN IV NAUSEA/VOMITING; Start 05/03/17 at 01:15; Stop 05/04/17 at 01:14; Status DC Morphine Sulfate 2 mg PRN Q2HR PRN IV PAIN; Start 05/03/17 at 01:15; Stop 05/04 at 01:14; Status DC Sodium Chloride 1,000 ml @ 125 mls/hr 1X ONCE IV Last administered on 04:45; Start 05/03/17 at 04:30; Stop 05/04/17 at 10:02; Status DC Magnesium Sulfate/ Dextrose 50 ml @ 25 mls/hr PRN DAILY PRN IV for Mag < 1.7 on am labs; Start 05/03/17 at 09:15 Sodium Bicarbonate 75 meq/Sodium Chloride 1,075 ml @ 75 mls/hr [id number] IV Last administered on 05/03/17 17:17; Start 05/03/17 at 10:00; Stop 05/03/17 at 21:50; Status DC Budesonide (Pulmicort) 0.5 mg RTBID NEB Last administered on 05/09/17 07:13; Start 05/03/17 at 12:00 Sodium Chloride 1,000 ml @ 250 mls/hr 1X ONCE IV Last administered on 13:17; Start 05/03/17 at 12:30; Stop 05/03/17 at 16:44; Status DC Amlodipine Besylate (Norvasc) 10 mg DAILY08 PO Last administered on 05/09/17 08:39; Start 05/03/17 at 15:00 Calcitriol (Rocaltrol) 0.25 mcg DAILY PO Last administered on 05/09/17 08:40; Start 05/03/17 at 15:00 Vitamin B Complex (Folbic Tablet) 1 tab DAILY PO Last administered on 08:39; Start 05/03/17 at 15:00 Ergocalciferol (Vitamin D2) 50,000 unit WEEKLY PO ; Start 05/10/17 at 09:00 Non-Formulary Medication 50 mcg BID IH ; Start 05/03/17 at 21:00; Stop 05/03/17 at 21:00; Status DC Loperamide HCl (Imodium) 2 mg DAILY08 PO Last administered on 05/05/17 09:30; Start 05/03/17 at 15:00; Stop 05/05/17 at 10:49; Status DC Sodium Chloride 1,000 ml @ 100 mls/hr Q10H IV Last administered on 05/04/17 06:01; Start 05/03/17 at 21:30; Stop 05/04/17 at 07:04; Status DC Sodium Chloride 1,000 ml @ 100 mls/hr Q10H IV Last administered on 05/04/17 07:10; Start 05/04/17 at 07:30; Stop 05/04/17 at 10:02; Status DC Sodium Bicarbonate 75 meq/Potassium Acetate 20 meq/ Dextrose 1,085 ml @ 50 mls/ hr [id number] IV Last administered on 05/08/17 20:36; Start 05/04/17 at 10:00 Darbepoetin Jono (Aranesp) 60 mcg WEEKLYHS SQ Last administered on 05/04/17 20 :51; Start 05/04/17 at 21:00 Lidocaine/Sodium Bicarbonate (Buffered Lidocaine 1%) 20 ml STK-MED ONCE IJ ; Start 05/04/17 at 10:23; Stop 05/04/17 at 10:24; Status DC Heparin Sodium (Porcine) (Heparin Sodium) 10,000 unit STK-MED ONCE .ROUTE ; Start 05/04/17 at 10:23; Stop 05/04/17 at 10:24; Status DC Heparin Sodium/ Sodium Chloride 500 ml @ As Directed STK-MED ONCE .ROUTE ; Start 05/04/17 at 10:23; Stop 05/04/17 at 10:24; Status DC Lidocaine/Sodium Bicarbonate (Buffered Lidocaine 1%) 20 ml 1X ONCE IJ Last administered on 05/04/17 11:22; Start 05/04/17 at 11:00; Stop 05/04/17 at 11:02 ; Status DC Heparin Sodium/ Sodium Chloride 1,000 unit 1X ONCE IV Last administered on 11:23; Start 05/04/17 at 11:00; Stop 05/04/17 at 11:02; Status DC Heparin Sodium (Porcine) (Heparin Sodium) 2,600 unit 1X ONCE INT CAT Last administered on 05/04/17 11:22; Start 05/04/17 at 11:00; Stop 05/04/17 at 11:02 ; Status DC Acetaminophen (Tylenol) 650 mg PRN Q6HRS PRN PO MILD PAIN Last administered on 05/09/17 08:39; Start 05/04/17 at 18:15 Tramadol HCl (Ultram) 50 mg PRN Q6HRS PRN PO PAIN Last administered on 12:12; Start 05/04/17 at 18:15 Morphine Sulfate 2 mg PRN Q4HRS PRN IV PAIN Last administered on 05/08/17 02: 24; Start 05/04/17 at 18:15 Magnesium Sulfate/ Dextrose 50 ml @ 25 mls/hr 1X ONCE IV Last administered on 05/05/17 02:52; Start 05/05/17 at 02:45; Stop 05/05/17 at 04:44; Status DC Albuterol/ Ipratropium (Duoneb) 3 ml RTQID NEB Last administered on 05/09/17 07:13; Start 05/05/17 at 09:30 Amino Acids/ Glycerin/ Electrolytes 1,000 ml @ 80 mls/hr [id number] IV Last administered on 05/08/17 02:14; Start 05/05/17 at 11:30; Stop 05/08/17 at 11:50 ; Status DC Calcium Carbonate/ Glycine (Oscal) 500 mg TIDAFTMEAL PO Last administered on 08:39; Start 05/07/17 at 09:15 Ondansetron HCl (Zofran) 4 mg PRN Q8HRS PRN IV NAUSEA/VOMITING Last administered on 05/08/17 02:24; Start 05/07/17 at 09:15 Al Hydroxide/Mg Hydroxide (Mylanta Plus Xs) 30 ml PRN Q6HRS PRN PO HEARTBURN / GAS Last administered on 05/08/17 02:24; Start 05/07/17 at 09:15 Sucralfate (Carafate) 1 gm QIDACHS PO Last administered on 05/09/17 08:39; Start 05/07/17 at 21:00 Pantoprazole Sodium (Protonix) 40 mg DAILYAC PO Last administered on 05/09/17 08:39; Start 05/08/17 at 11:30 Ringer's Solution 1,000 ml @ 75 mls/hr [id number] IV Last administered on 16:15; Start 05/08/17 at 16:15 Midazolam HCl (Versed) 5 mg STK-MED ONCE .ROUTE ; Start 05/08/17 at 17:03; Stop 05/08/17 at 17:04; Status DC Fentanyl Citrate (Fentanyl 2ml Vial) 100 mcg STK-MED ONCE .ROUTE ; Start at 17:03; Stop 05/08/17 at 17:04; Status DC Midazolam HCl (Versed) 5 mg STK-MED ONCE IV Last administered on 05/08/17 17: 14; Start 05/08/17 at 17:14; Stop 05/08/17 at 17:16; Status DC Fentanyl Citrate (Fentanyl 2ml Vial) 100 mcg STK-MED ONCE IV Last administered on 05/08/17 17:16; Start 05/08/17 at 17:16; Stop 05/08/17 at 17:17; Status DC Midazolam HCl (Versed) 5 mg STK-MED ONCE IV Last administered on 05/08/17 17: 18; Start 05/08/17 at 17:18; Stop 05/08/17 at 17:21; Status DC Midazolam HCl (Versed) 5 mg STK-MED ONCE IV Last administered on 05/08/17 17: 24; Start 05/08/17 at 17:24; Stop 05/08/17 at 17:26; Status DC Active Scripts Active Vitamin D2 (Ergocalciferol (Vitamin D2)) 50,000 Unit Capsule 50,000 Unit PO WEEKLY Folbic Tablet (Cyanocobalamin/Fa/Pyridoxine) 1 Each Tablet 1 Tab PO DAILY Calcitriol 0.25 Mcg Capsule 0.25 Mcg PO DAILY Reported Flovent 50MCG Diskus (Fluticasone Propionate) 50 Mcg Disk.w.dev 50 Mcg IH BID Imodium A-D (Loperamide Hcl) 1 Mg/7.5 Ml Liquid 2 Mg PO DAILY08 Norvasc (Amlodipine Besylate) 10 Mg Tablet 10 Mg PO DAILY08 Vitals/I & O Vital Sign - Last 24 Hours 05/08/17 05/08/17 05/08/17 05/08/17 11:00 11:05 12:12 13:12 Temp 97.9 97.9 Pulse 81 Resp 20 B/P (MAP) 126/74 (91) Pulse Ox 96 O2 Delivery Room Air Room Air Room Air Room Air 05/08/17 05/08/17 05/08/17 05/08/17 15:00 15:52 16:09 16:09 Temp 98.1 99.2 98.1 99.2 Pulse 79 76 Resp 18 18 B/P (MAP) 114/68 (83) Pulse Ox 95 92 O2 Delivery Room Air Room Air Room Air 05/08/17 05/08/17 05/08/17 05/08/17 17:11 17:16 17:21 17:26 Pulse 85 74 73 96 Resp 16 16 16 16 Pulse Ox 98 100 96 O2 Delivery Room Air Nasal Cannula Nasal Cannula Nasal Cannula O2 Flow Rate 4 4 4 4 05/08/17 05/08/17 05/08/17 05/08/17 17:27 17:36 17:42 17:49 Temp 96.9 96.9 Pulse 75 75 79 79 Resp 16 16 16 16 B/P (MAP) 133/65 123/68 117/64 119/64 Pulse Ox 97 100 98 94 O2 Delivery Nasal Cannula Nasal Cannula Room Air Room Air O2 Flow Rate 4 2 05/08/17 05/08/17 05/08/17 05/08/17 17:56 19:00 20:00 20:14 Temp 97.5 97.5 Pulse 80 79 Resp 16 20 B/P (MAP) 122/69 114/69 (84) Pulse Ox 94 95 97 O2 Delivery Room Air Room Air Room Air Room Air O2 Flow Rate 2.0 05/08/17 05/08/17 05/09/17 05/09/17 20:20 23:00 03:00 07:00 Temp 97.5 97.9 97.8 97.5 97.9 97.8 Pulse 79 74 77 Resp 18 14 20 B/P (MAP) 101/56 (71) 109/62 (78) 107/54 (71) Pulse Ox 97 95 95 94 O2 Delivery Room Air Room Air Room Air Room Air 05/09/17 05/09/17 05/09/17 07:14 07:57 08:39 Pulse 74 B/P (MAP) 109/62 Pulse Ox 93 O2 Delivery Room Air Room Air ALNI MAXWELL MD May 09, 2017 09:10
--- NOTE | 2017-05-09 10:08 | PDOC ---
PULMONARY PROGRESS NOTES Subjective PT NO INCREASE SOA Vitals Vital Signs Date Time Temp Pulse Resp B/P (MAP) Pulse Ox O2 Delivery O2 Flow Rate FiO2 05/09/17 08:39 74 109/62 05/09/17 07:57 Room Air 05/09/17 07:14 93 05/09/17 07:00 97.8 20 97.8 05/08/17 20:00 2.0 ROS: No Nausea, No Chest Pain, No Increase Cough General: Alert, No acute distress Lungs: Clear Cardiovascular: S1, S2 Abdomen: Soft, Non-tender Neuro Exam: Alert Extremities: No Edema Skin: Warm Labs Laboratory Tests Test 05/08/17 04:50 05/08/17 15:57 05/09/17 05:30 White Blood Count 6.6 x10^3/uL (4.0-11.0) 5.5 x10^3/uL (4.0-11.0) Red Blood Count 2.87 x10^6/uL (3.50-5.40) 2.74 x10^6/uL (3.50-5.40) Hemoglobin 8.1 g/dL (12.0-15.5) 7.8 g/dL (12.0-15.5) Hematocrit 25.5 % (36.0-47.0) 24.3 % (36.0-47.0) Mean Corpuscular Volume 89 fL (79-100) 89 fL (79-100) Mean Corpuscular Hemoglobin 28 pg (25-35) 29 pg (25-35) Mean Corpuscular Hemoglobin Concent 32 g/dL (31-37) 32 g/dL (31-37) Red Cell Distribution Width 16.1 % (11.5-14.5) 15.7 % (11.5-14.5) Platelet Count 85 x10^3/uL (140-400) 95 x10^3/uL (140-400) Neutrophils (%) (Auto) 76 % (31-73) 68 % (31-73) Lymphocytes (%) (Auto) 13 % (24-48) 20 % (24-48) Monocytes (%) (Auto) 9 % (0-9) 9 % (0-9) Eosinophils (%) (Auto) 2 % (0-3) 3 % (0-3) Basophils (%) (Auto) 0 % (0-3) 1 % (0-3) Neutrophils # (Auto) 5.0 x10^3uL (1.8-7.7) 3.7 x10^3uL (1.8-7.7) Lymphocytes # (Auto) 0.9 x10^3/uL (1.0-4.8) 1.1 x10^3/uL (1.0-4.8) Monocytes # (Auto) 0.6 x10^3/uL (0.0-1.1) 0.5 x10^3/uL (0.0-1.1) Eosinophils # (Auto) 0.1 x10^3/uL (0.0-0.7) 0.1 x10^3/uL (0.0-0.7) Basophils # (Auto) 0.0 x10^3/uL (0.0-0.2) 0.0 x10^3/uL (0.0-0.2) Sodium Level 137 mmol/L (136-145) 138 mmol/L (136-145) Potassium Level 4.0 mmol/L (3.5-5.1) 5.0 mmol/L (3.5-5.1) Chloride Level 100 mmol/L (98-107) 103 mmol/L (98-107) Carbon Dioxide Level 28 mmol/L (21-32) 28 mmol/L (21-32) Anion Gap 9 (6-14) 7 (6-14) Blood Urea Nitrogen 65 mg/dL (7-20) 69 mg/dL (7-20) Creatinine 3.3 mg/dL (0.6-1.0) 3.3 mg/dL (0.6-1.0) Estimated GFR (Cockcroft-Gault) 13.9 13.9 Glucose Level 92 mg/dL (70-99) 83 mg/dL (70-99) Calcium Level 8.1 mg/dL (8.5-10.1) 8.4 mg/dL (8.5-10.1) Phosphorus Level 3.0 mg/dL (2.6-4.7) 2.8 mg/dL (2.6-4.7) Magnesium Level 1.9 mg/dL (1.8-2.4) Albumin 2.7 g/dL (3.4-5.0) 2.6 g/dL (3.4-5.0) Glucose (Fingerstick) 68 mg/dL (70-99) BUN/Creatinine Ratio 21 (6-20) Total Bilirubin 0.2 mg/dL (0.2-1.0) Aspartate Amino Transf (AST/SGOT) 20 U/L (15-37) Alanine Aminotransferase (ALT/SGPT) 19 U/L (14-59) Alkaline Phosphatase 56 U/L (46-116) Total Protein 5.4 g/dL (6.4-8.2) Albumin/Globulin Ratio 0.9 (1.0-1.7) Laboratory Tests Test 05/08/17 15:57 05/09/17 05:30 Glucose (Fingerstick) 68 mg/dL (70-99) White Blood Count 5.5 x10^3/uL (4.0-11.0) Red Blood Count 2.74 x10^6/uL (3.50-5.40) Hemoglobin 7.8 g/dL (12.0-15.5) Hematocrit 24.3 % (36.0-47.0) Mean Corpuscular Volume 89 fL (79-100) Mean Corpuscular Hemoglobin 29 pg (25-35) Mean Corpuscular Hemoglobin Concent 32 g/dL (31-37) Red Cell Distribution Width 15.7 % (11.5-14.5) Platelet Count 95 x10^3/uL (140-400) Neutrophils (%) (Auto) 68 % (31-73) Lymphocytes (%) (Auto) 20 % (24-48) Monocytes (%) (Auto) 9 % (0-9) Eosinophils (%) (Auto) 3 % (0-3) Basophils (%) (Auto) 1 % (0-3) Neutrophils # (Auto) 3.7 x10^3uL (1.8-7.7) Lymphocytes # (Auto) 1.1 x10^3/uL (1.0-4.8) Monocytes # (Auto) 0.5 x10^3/uL (0.0-1.1) Eosinophils # (Auto) 0.1 x10^3/uL (0.0-0.7) Basophils # (Auto) 0.0 x10^3/uL (0.0-0.2) Sodium Level 138 mmol/L (136-145) Potassium Level 5.0 mmol/L (3.5-5.1) Chloride Level 103 mmol/L (98-107) Carbon Dioxide Level 28 mmol/L (21-32) Anion Gap 7 (6-14) Blood Urea Nitrogen 69 mg/dL (7-20) Creatinine 3.3 mg/dL (0.6-1.0) Estimated GFR (Cockcroft-Gault) 13.9 BUN/Creatinine Ratio 21 (6-20) Glucose Level 83 mg/dL (70-99) Calcium Level 8.4 mg/dL (8.5-10.1) Phosphorus Level 2.8 mg/dL (2.6-4.7) Total Bilirubin 0.2 mg/dL (0.2-1.0) Aspartate Amino Transf (AST/SGOT) 20 U/L (15-37) Alanine Aminotransferase (ALT/SGPT) 19 U/L (14-59) Alkaline Phosphatase 56 U/L (46-116) Total Protein 5.4 g/dL (6.4-8.2) Albumin 2.6 g/dL (3.4-5.0) Albumin/Globulin Ratio 0.9 (1.0-1.7) Medications Active Scripts Medications Dose Route/Sig Max Daily Dose Days Date Category Vitamin D2 (Ergocalciferol (Vitamin D2)) 50,000 Unit Capsule 50,000 Unit PO WEEKLY 12/07/16 Rx Folbic Tablet (Cyanocobalamin/Fa/Pyridoxine) 1 Each Tablet 1 Tab PO DAILY 12/07/16 Rx Calcitriol 0.25 Mcg Capsule 0.25 Mcg PO DAILY 12/07/16 Rx Flovent 50MCG Diskus (Fluticasone Propionate) 50 Mcg Disk.w.dev 50 Mcg IH BID 09/04/13 Reported Imodium A-D (Loperamide Hcl) 1 Mg/7.5 Ml Liquid 2 Mg PO DAILY08 09/04/13 Reported Norvasc (Amlodipine Besylate) 10 Mg Tablet 10 Mg PO DAILY08 09/04/13 Reported Impression . 1. Abnormal arterial blood gases secondary to acute metabolic acidosis with respiratory compensation. 2. Increased anion gap metabolic acidosis 3. History of asthma as a child. 4. Clear chest x-ray. 5. Acute renal failure, 6. Small-bowel obstruction. Plan . RESP STATUS COMPENSATED CONTINUE THE SAME FLOVENT OUTPT FOLLOW RENAL INPUT LYRIC SMART MD May 09, 2017 10:08
[2017-05-09 11:00] VITALS: BP 107/62
[2017-05-09] MEDS: ONDANSETRON PF 4 MG/2 ML VIAL. IV PRN (11:12)
[2017-05-09] MEDS: traMADol 50 MG TABLET PO PRN (11:12)
[2017-05-09] MEDS ORDERED: POLYETHYLENE GLYCOL 3350 17 GM PACKET. PO ONE ×2 (12:15→14:00)
--- NOTE | 2017-05-09 12:27 | PDOC ---
PROGRESS NOTES Chief Complaint Chief Complaint Small-bowel obstruction. 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 acute metabolic gap acidosis Prior Hx of colon cancer. History of Present Illness History of Present Illness taking PO, cecil, but feels constipated, miralax, colace now, she requested PRN dulcolax GI consulted renal following Vitals Vitals Vital Signs Date Time Temp Pulse Resp B/P (MAP) Pulse Ox O2 Delivery O2 Flow Rate FiO2 05/09/17 11:25 95 05/09/17 11:12 Room Air 05/09/17 08:39 74 109/62 05/09/17 07:00 97.8 20 97.8 05/08/17 20:00 2.0 Physical Exam General: Alert, Oriented X3 Heart: Normal S1, Normal S2 Lungs: Clear Abdomen: Soft, No tenderness Extremities: No clubbing, No edema Skin: No rashes Labs LABS Laboratory Tests Test 05/08/17 15:57 05/09/17 05:30 Glucose (Fingerstick) 68 mg/dL (70-99) White Blood Count 5.5 x10^3/uL (4.0-11.0) Red Blood Count 2.74 x10^6/uL (3.50-5.40) Hemoglobin 7.8 g/dL (12.0-15.5) Hematocrit 24.3 % (36.0-47.0) Mean Corpuscular Volume 89 fL (79-100) Mean Corpuscular Hemoglobin 29 pg (25-35) Mean Corpuscular Hemoglobin Concent 32 g/dL (31-37) Red Cell Distribution Width 15.7 % (11.5-14.5) Platelet Count 95 x10^3/uL (140-400) Neutrophils (%) (Auto) 68 % (31-73) Lymphocytes (%) (Auto) 20 % (24-48) Monocytes (%) (Auto) 9 % (0-9) Eosinophils (%) (Auto) 3 % (0-3) Basophils (%) (Auto) 1 % (0-3) Neutrophils # (Auto) 3.7 x10^3uL (1.8-7.7) Lymphocytes # (Auto) 1.1 x10^3/uL (1.0-4.8) Monocytes # (Auto) 0.5 x10^3/uL (0.0-1.1) Eosinophils # (Auto) 0.1 x10^3/uL (0.0-0.7) Basophils # (Auto) 0.0 x10^3/uL (0.0-0.2) Sodium Level 138 mmol/L (136-145) Potassium Level 5.0 mmol/L (3.5-5.1) Chloride Level 103 mmol/L (98-107) Carbon Dioxide Level 28 mmol/L (21-32) Anion Gap 7 (6-14) Blood Urea Nitrogen 69 mg/dL (7-20) Creatinine 3.3 mg/dL (0.6-1.0) Estimated GFR (Cockcroft-Gault) 13.9 BUN/Creatinine Ratio 21 (6-20) Glucose Level 83 mg/dL (70-99) Calcium Level 8.4 mg/dL (8.5-10.1) Phosphorus Level 2.8 mg/dL (2.6-4.7) Total Bilirubin 0.2 mg/dL (0.2-1.0) Aspartate Amino Transf (AST/SGOT) 20 U/L (15-37) Alanine Aminotransferase (ALT/SGPT) 19 U/L (14-59) Alkaline Phosphatase 56 U/L (46-116) Total Protein 5.4 g/dL (6.4-8.2) Albumin 2.6 g/dL (3.4-5.0) Albumin/Globulin Ratio 0.9 (1.0-1.7) Review of Systems Review of Systems no n.v/d Assessment and Plan Assessmemt and Plan Problems Medical Problems: (1) Anemia Status: Acute (2) Renal failure Status: Acute Problems: Comment Review of Relevant I have reviewed the following items yoel (where applicable) has been applied. Labs Laboratory Tests Test 05/08/17 04:50 05/08/17 15:57 05/09/17 05:30 White Blood Count 6.6 x10^3/uL (4.0-11.0) 5.5 x10^3/uL (4.0-11.0) Red Blood Count 2.87 x10^6/uL (3.50-5.40) 2.74 x10^6/uL (3.50-5.40) Hemoglobin 8.1 g/dL (12.0-15.5) 7.8 g/dL (12.0-15.5) Hematocrit 25.5 % (36.0-47.0) 24.3 % (36.0-47.0) Mean Corpuscular Volume 89 fL (79-100) 89 fL (79-100) Mean Corpuscular Hemoglobin 28 pg (25-35) 29 pg (25-35) Mean Corpuscular Hemoglobin Concent 32 g/dL (31-37) 32 g/dL (31-37) Red Cell Distribution Width 16.1 % (11.5-14.5) 15.7 % (11.5-14.5) Platelet Count 85 x10^3/uL (140-400) 95 x10^3/uL (140-400) Neutrophils (%) (Auto) 76 % (31-73) 68 % (31-73) Lymphocytes (%) (Auto) 13 % (24-48) 20 % (24-48) Monocytes (%) (Auto) 9 % (0-9) 9 % (0-9) Eosinophils (%) (Auto) 2 % (0-3) 3 % (0-3) Basophils (%) (Auto) 0 % (0-3) 1 % (0-3) Neutrophils # (Auto) 5.0 x10^3uL (1.8-7.7) 3.7 x10^3uL (1.8-7.7) Lymphocytes # (Auto) 0.9 x10^3/uL (1.0-4.8) 1.1 x10^3/uL (1.0-4.8) Monocytes # (Auto) 0.6 x10^3/uL (0.0-1.1) 0.5 x10^3/uL (0.0-1.1) Eosinophils # (Auto) 0.1 x10^3/uL (0.0-0.7) 0.1 x10^3/uL (0.0-0.7) Basophils # (Auto) 0.0 x10^3/uL (0.0-0.2) 0.0 x10^3/uL (0.0-0.2) Sodium Level 137 mmol/L (136-145) 138 mmol/L (136-145) Potassium Level 4.0 mmol/L (3.5-5.1) 5.0 mmol/L (3.5-5.1) Chloride Level 100 mmol/L (98-107) 103 mmol/L (98-107) Carbon Dioxide Level 28 mmol/L (21-32) 28 mmol/L (21-32) Anion Gap 9 (6-14) 7 (6-14) Blood Urea Nitrogen 65 mg/dL (7-20) 69 mg/dL (7-20) Creatinine 3.3 mg/dL (0.6-1.0) 3.3 mg/dL (0.6-1.0) Estimated GFR (Cockcroft-Gault) 13.9 13.9 Glucose Level 92 mg/dL (70-99) 83 mg/dL (70-99) Calcium Level 8.1 mg/dL (8.5-10.1) 8.4 mg/dL (8.5-10.1) Phosphorus Level 3.0 mg/dL (2.6-4.7) 2.8 mg/dL (2.6-4.7) Magnesium Level 1.9 mg/dL (1.8-2.4) Albumin 2.7 g/dL (3.4-5.0) 2.6 g/dL (3.4-5.0) Glucose (Fingerstick) 68 mg/dL (70-99) BUN/Creatinine Ratio 21 (6-20) Total Bilirubin 0.2 mg/dL (0.2-1.0) Aspartate Amino Transf (AST/SGOT) 20 U/L (15-37) Alanine Aminotransferase (ALT/SGPT) 19 U/L (14-59) Alkaline Phosphatase 56 U/L (46-116) Total Protein 5.4 g/dL (6.4-8.2) Albumin/Globulin Ratio 0.9 (1.0-1.7) Laboratory Tests Test 05/08/17 15:57 05/09/17 05:30 Glucose (Fingerstick) 68 mg/dL (70-99) White Blood Count 5.5 x10^3/uL (4.0-11.0) Red Blood Count 2.74 x10^6/uL (3.50-5.40) Hemoglobin 7.8 g/dL (12.0-15.5) Hematocrit 24.3 % (36.0-47.0) Mean Corpuscular Volume 89 fL (79-100) Mean Corpuscular Hemoglobin 29 pg (25-35) Mean Corpuscular Hemoglobin Concent 32 g/dL (31-37) Red Cell Distribution Width 15.7 % (11.5-14.5) Platelet Count 95 x10^3/uL (140-400) Neutrophils (%) (Auto) 68 % (31-73) Lymphocytes (%) (Auto) 20 % (24-48) Monocytes (%) (Auto) 9 % (0-9) Eosinophils (%) (Auto) 3 % (0-3) Basophils (%) (Auto) 1 % (0-3) Neutrophils # (Auto) 3.7 x10^3uL (1.8-7.7) Lymphocytes # (Auto) 1.1 x10^3/uL (1.0-4.8) Monocytes # (Auto) 0.5 x10^3/uL (0.0-1.1) Eosinophils # (Auto) 0.1 x10^3/uL (0.0-0.7) Basophils # (Auto) 0.0 x10^3/uL (0.0-0.2) Sodium Level 138 mmol/L (136-145) Potassium Level 5.0 mmol/L (3.5-5.1) Chloride Level 103 mmol/L (98-107) Carbon Dioxide Level 28 mmol/L (21-32) Anion Gap 7 (6-14) Blood Urea Nitrogen 69 mg/dL (7-20) Creatinine 3.3 mg/dL (0.6-1.0) Estimated GFR (Cockcroft-Gault) 13.9 BUN/Creatinine Ratio 21 (6-20) Glucose Level 83 mg/dL (70-99) Calcium Level 8.4 mg/dL (8.5-10.1) Phosphorus Level 2.8 mg/dL (2.6-4.7) Total Bilirubin 0.2 mg/dL (0.2-1.0) Aspartate Amino Transf (AST/SGOT) 20 U/L (15-37) Alanine Aminotransferase (ALT/SGPT) 19 U/L (14-59) Alkaline Phosphatase 56 U/L (46-116) Total Protein 5.4 g/dL (6.4-8.2) Albumin 2.6 g/dL (3.4-5.0) Albumin/Globulin Ratio 0.9 (1.0-1.7) Microbiology 05/04/17 Urine Culture - Final, Complete 05/04/17 Urine Culture Result 1 (OLAMIDE) - Final, Complete 05/04/17 Antimicrobic Susceptibility - Final, Complete Medications Current Medications Ondansetron HCl (Zofran) 4 mg 1X ONCE IV Last administered on 05/02/17 23:27 ; Start 05/02/17 at 23:15; Stop 05/02/17 at 23:16; Status DC Multi-Ingredient Mouthwash/Gargle (Gi Cocktail Single Dose) 15 ml 1X ONCE SWSW Last administered on 05/02/17 23:27; Start 05/02/17 at 23:15; Stop 05/02/17 at 23:16; Status DC Sodium Bicarbonate 100 meq 1X ONCE IV Last administered on 05/03/17 01:17; Start 05/03/17 at 01:15; Stop 05/03/17 at 01:16; Status DC Ondansetron HCl (Zofran) 4 mg PRN Q8HRS PRN IV NAUSEA/VOMITING; Start 05/03/17 at 01:15; Stop 05/04/17 at 01:14; Status DC Morphine Sulfate 2 mg PRN Q2HR PRN IV PAIN; Start 05/03/17 at 01:15; Stop 05/04 at 01:14; Status DC Sodium Chloride 1,000 ml @ 125 mls/hr 1X ONCE IV Last administered on 04:45; Start 05/03/17 at 04:30; Stop 05/04/17 at 10:02; Status DC Magnesium Sulfate/ Dextrose 50 ml @ 25 mls/hr PRN DAILY PRN IV for Mag < 1.7 on am labs; Start 05/03/17 at 09:15 Sodium Bicarbonate 75 meq/Sodium Chloride 1,075 ml @ 75 mls/hr [id number] IV Last administered on 05/03/17 17:17; Start 05/03/17 at 10:00; Stop 05/03/17 at 21:50; Status DC Budesonide (Pulmicort) 0.5 mg RTBID NEB Last administered on 05/09/17 07:13; Start 05/03/17 at 12:00 Sodium Chloride 1,000 ml @ 250 mls/hr 1X ONCE IV Last administered on 13:17; Start 05/03/17 at 12:30; Stop 05/03/17 at 16:44; Status DC Amlodipine Besylate (Norvasc) 10 mg DAILY08 PO Last administered on 05/09/17 08:39; Start 05/03/17 at 15:00 Calcitriol (Rocaltrol) 0.25 mcg DAILY PO Last administered on 05/09/17 08:40; Start 05/03/17 at 15:00 Vitamin B Complex (Folbic Tablet) 1 tab DAILY PO Last administered on 08:39; Start 05/03/17 at 15:00 Ergocalciferol (Vitamin D2) 50,000 unit WEEKLY PO ; Start 05/10/17 at 09:00 Non-Formulary Medication 50 mcg BID IH ; Start 05/03/17 at 21:00; Stop 05/03/17 at 21:00; Status DC Loperamide HCl (Imodium) 2 mg DAILY08 PO Last administered on 05/05/17 09:30; Start 05/03/17 at 15:00; Stop 05/05/17 at 10:49; Status DC Sodium Chloride 1,000 ml @ 100 mls/hr Q10H IV Last administered on 05/04/17 06:01; Start 05/03/17 at 21:30; Stop 05/04/17 at 07:04; Status DC Sodium Chloride 1,000 ml @ 100 mls/hr Q10H IV Last administered on 05/04/17 07:10; Start 05/04/17 at 07:30; Stop 05/04/17 at 10:02; Status DC Sodium Bicarbonate 75 meq/Potassium Acetate 20 meq/ Dextrose 1,085 ml @ 50 mls/ hr [id number] IV Last administered on 05/08/17 20:36; Start 05/04/17 at 10:00 Darbepoetin Jono (Aranesp) 60 mcg WEEKLYHS SQ Last administered on 9/22/17at 20 :51; Start 05/04/17 at 21:00 Lidocaine/Sodium Bicarbonate (Buffered Lidocaine 1%) 20 ml STK-MED ONCE IJ ; Start 05/04/17 at 10:23; Stop 05/04/17 at 10:24; Status DC Heparin Sodium (Porcine) (Heparin Sodium) 10,000 unit STK-MED ONCE .ROUTE ; Start 05/04/17 at 10:23; Stop 05/04/17 at 10:24; Status DC Heparin Sodium/ Sodium Chloride 500 ml @ As Directed STK-MED ONCE .ROUTE ; Start 05/04/17 at 10:23; Stop 05/04/17 at 10:24; Status DC Lidocaine/Sodium Bicarbonate (Buffered Lidocaine 1%) 20 ml 1X ONCE IJ Last administered on 05/04/17 11:22; Start 05/04/17 at 11:00; Stop 05/04/17 at 11:02 ; Status DC Heparin Sodium/ Sodium Chloride 1,000 unit 1X ONCE IV Last administered on 11:23; Start 05/04/17 at 11:00; Stop 05/04/17 at 11:02; Status DC Heparin Sodium (Porcine) (Heparin Sodium) 2,600 unit 1X ONCE INT CAT Last administered on 05/04/17 11:22; Start 05/04/17 at 11:00; Stop 05/04/17 at 11:02 ; Status DC Acetaminophen (Tylenol) 650 mg PRN Q6HRS PRN PO MILD PAIN Last administered on 05/09/17 08:39; Start 05/04/17 at 18:15 Tramadol HCl (Ultram) 50 mg PRN Q6HRS PRN PO PAIN Last administered on 11:12; Start 05/04/17 at 18:15 Morphine Sulfate 2 mg PRN Q4HRS PRN IV PAIN Last administered on 05/08/17 02: 24; Start 05/04/17 at 18:15 Magnesium Sulfate/ Dextrose 50 ml @ 25 mls/hr 1X ONCE IV Last administered on 05/05/17 02:52; Start 05/05/17 at 02:45; Stop 05/05/17 at 04:44; Status DC Albuterol/ Ipratropium (Duoneb) 3 ml RTQID NEB Last administered on 05/09/17 11:25; Start 05/05/17 at 09:30 Amino Acids/ Glycerin/ Electrolytes 1,000 ml @ 80 mls/hr [id number] IV Last administered on 05/08/17 02:14; Start 05/05/17 at 11:30; Stop 05/08/17 at 11:50 ; Status DC Calcium Carbonate/ Glycine (Oscal) 500 mg TIDAFTMEAL PO Last administered on 08:39; Start 05/07/17 at 09:15 Ondansetron HCl (Zofran) 4 mg PRN Q8HRS PRN IV NAUSEA/VOMITING Last administered on 05/09/17 11:12; Start 05/07/17 at 09:15 Al Hydroxide/Mg Hydroxide (Mylanta Plus Xs) 30 ml PRN Q6HRS PRN PO HEARTBURN / GAS Last administered on 05/08/17 02:24; Start 05/07/17 at 09:15 Sucralfate (Carafate) 1 gm QIDACHS PO Last administered on 05/09/17 11:12; Start 05/07/17 at 21:00 Pantoprazole Sodium (Protonix) 40 mg DAILYAC PO Last administered on 05/09/17 08:39; Start 05/08/17 at 11:30 Ringer's Solution 1,000 ml @ 75 mls/hr [id number] IV Last administered on 16:15; Start 05/08/17 at 16:15 Midazolam HCl (Versed) 5 mg STK-MED ONCE .ROUTE ; Start 05/08/17 at 17:03; Stop 05/08/17 at 17:04; Status DC Fentanyl Citrate (Fentanyl 2ml Vial) 100 mcg STK-MED ONCE .ROUTE ; Start at 17:03; Stop 05/08/17 at 17:04; Status DC Midazolam HCl (Versed) 5 mg STK-MED ONCE IV Last administered on 05/08/17 17: 14; Start 05/08/17 at 17:14; Stop 05/08/17 at 17:16; Status DC Fentanyl Citrate (Fentanyl 2ml Vial) 100 mcg STK-MED ONCE IV Last administered on 05/08/17 17:16; Start 05/08/17 at 17:16; Stop 05/08/17 at 17:17; Status DC Midazolam HCl (Versed) 5 mg STK-MED ONCE IV Last administered on 05/08/17 17: 18; Start 05/08/17 at 17:18; Stop 05/08/17 at 17:21; Status DC Midazolam HCl (Versed) 5 mg STK-MED ONCE IV Last administered on 05/08/17 17: 24; Start 05/08/17 at 17:24; Stop 05/08/17 at 17:26; Status DC Docusate Sodium (Colace) 100 mg DAILY PO ; Start 05/09/17 at 12:15 Polyethylene Glycol (miraLAX PACKET) 17 gm 1X ONCE PO ; Start 05/09/17 at 12:15 ; Stop 05/09/17 at 12:16; Status DC Polyethylene Glycol (miraLAX PACKET) 17 gm DAILY PO ; Start 05/10/17 at 09:00 Active Scripts Active Vitamin D2 (Ergocalciferol (Vitamin D2)) 50,000 Unit Capsule 50,000 Unit PO WEEKLY Folbic Tablet (Cyanocobalamin/Fa/Pyridoxine) 1 Each Tablet 1 Tab PO DAILY Calcitriol 0.25 Mcg Capsule 0.25 Mcg PO DAILY Reported Flovent 50MCG Diskus (Fluticasone Propionate) 50 Mcg Disk.w.dev 50 Mcg IH BID Imodium A-D (Loperamide Hcl) 1 Mg/7.5 Ml Liquid 2 Mg PO DAILY08 Norvasc (Amlodipine Besylate) 10 Mg Tablet 10 Mg PO DAILY08 Vitals/I & O Vital Sign - Last 24 Hours 05/08/17 05/08/17 05/08/17 05/08/17 13:12 15:00 15:52 16:09 Temp 98.1 98.1 Pulse 79 Resp 18 B/P (MAP) 114/68 (83) Pulse Ox 95 O2 Delivery Room Air Room Air Room Air Room Air 05/08/17 05/08/17 05/08/17 05/08/17 16:09 17:11 17:16 17:21 Temp 99.2 99.2 Pulse 76 85 74 73 Resp 18 16 16 16 Pulse Ox 92 98 100 O2 Delivery Room Air Nasal Cannula Nasal Cannula O2 Flow Rate 4 4 4 05/08/17 05/08/17 05/08/17 05/08/17 17:26 17:27 17:36 17:42 Temp 96.9 96.9 Pulse 96 75 75 79 Resp 16 16 16 16 B/P (MAP) 133/65 123/68 117/64 Pulse Ox 96 97 100 98 O2 Delivery Nasal Cannula Nasal Cannula Nasal Cannula Room Air O2 Flow Rate 4 4 2 05/08/17 05/08/17 05/08/17 05/08/17 17:49 17:56 19:00 20:00 Temp 97.5 97.5 Pulse 79 80 79 Resp 16 16 20 B/P (MAP) 119/64 122/69 114/69 (84) Pulse Ox 94 94 95 O2 Delivery Room Air Room Air Room Air Room Air O2 Flow Rate 2.0 05/08/17 05/08/17 05/08/17 05/09/17 20:14 20:20 23:00 03:00 Temp 97.5 97.9 97.5 97.9 Pulse 79 74 Resp 18 14 B/P (MAP) 101/56 (71) 109/62 (78) Pulse Ox 97 97 95 95 O2 Delivery Room Air Room Air Room Air Room Air 05/09/17 05/09/17 05/09/17 05/09/17 07:00 07:14 07:57 08:39 Temp 97.8 97.8 Pulse 77 74 Resp 20 B/P (MAP) 107/54 (71) 109/62 Pulse Ox 94 93 O2 Delivery Room Air Room Air Room Air 05/09/17 05/09/17 11:12 11:25 Pulse Ox 95 O2 Delivery Room Air JONY PRIEST MD May 09, 2017 12:27
[2017-05-09] MEDS ORDERED: BISACODYL 5 MG TABLET.DR. PO PRN (12:30)
--- NOTE | 2017-05-09 12:36 | PDOC ---
Renal-Progress Notes Subjective Notes Notes HAVING ABD PAIN TODAY History of Present Illness Hx of present illness STABLE Vitals Vitals Vital Signs Date Time Temp Pulse Resp B/P (MAP) Pulse Ox O2 Delivery O2 Flow Rate FiO2 05/09/17 11:25 95 05/09/17 11:12 Room Air 05/09/17 08:39 74 109/62 05/09/17 07:00 97.8 20 97.8 05/08/17 20:00 2.0 Weight Weight [ ] Labs Labs Laboratory Tests Test 05/08/17 15:57 05/09/17 05:30 Glucose (Fingerstick) 68 mg/dL (70-99) White Blood Count 5.5 x10^3/uL (4.0-11.0) Red Blood Count 2.74 x10^6/uL (3.50-5.40) Hemoglobin 7.8 g/dL (12.0-15.5) Hematocrit 24.3 % (36.0-47.0) Mean Corpuscular Volume 89 fL (79-100) Mean Corpuscular Hemoglobin 29 pg (25-35) Mean Corpuscular Hemoglobin Concent 32 g/dL (31-37) Red Cell Distribution Width 15.7 % (11.5-14.5) Platelet Count 95 x10^3/uL (140-400) Neutrophils (%) (Auto) 68 % (31-73) Lymphocytes (%) (Auto) 20 % (24-48) Monocytes (%) (Auto) 9 % (0-9) Eosinophils (%) (Auto) 3 % (0-3) Basophils (%) (Auto) 1 % (0-3) Neutrophils # (Auto) 3.7 x10^3uL (1.8-7.7) Lymphocytes # (Auto) 1.1 x10^3/uL (1.0-4.8) Monocytes # (Auto) 0.5 x10^3/uL (0.0-1.1) Eosinophils # (Auto) 0.1 x10^3/uL (0.0-0.7) Basophils # (Auto) 0.0 x10^3/uL (0.0-0.2) Sodium Level 138 mmol/L (136-145) Potassium Level 5.0 mmol/L (3.5-5.1) Chloride Level 103 mmol/L (98-107) Carbon Dioxide Level 28 mmol/L (21-32) Anion Gap 7 (6-14) Blood Urea Nitrogen 69 mg/dL (7-20) Creatinine 3.3 mg/dL (0.6-1.0) Estimated GFR (Cockcroft-Gault) 13.9 BUN/Creatinine Ratio 21 (6-20) Glucose Level 83 mg/dL (70-99) Calcium Level 8.4 mg/dL (8.5-10.1) Phosphorus Level 2.8 mg/dL (2.6-4.7) Total Bilirubin 0.2 mg/dL (0.2-1.0) Aspartate Amino Transf (AST/SGOT) 20 U/L (15-37) Alanine Aminotransferase (ALT/SGPT) 19 U/L (14-59) Alkaline Phosphatase 56 U/L (46-116) Total Protein 5.4 g/dL (6.4-8.2) Albumin 2.6 g/dL (3.4-5.0) Albumin/Globulin Ratio 0.9 (1.0-1.7) Micro Micro Microbiology 05/04/17 Urine Culture - Final, Complete 05/04/17 Urine Culture Result 1 (OLAMIDE) - Final, Complete 05/04/17 Antimicrobic Susceptibility - Final, Complete Review of Systems Constitutional: yes: malaise, weakness, alert, oriented Ears/Nose/Throat: Yes: no symptom reported Eyes: Yes: no symptom reported Cardiovascular: Yes no symptom reported Gastrointestional: Yes: nausea Genitourinary: Yes: no symptom reported Musculoskeletal: Yes: muscle stiffness Skin: Yes no symptom reported Psychiatric/Neurological: Yes: no symptom reported Endocrine: Yes: no symptom reported Hematologic/Lymphatic: Yes: no symptom reported Physical Exam General Appearance: no apparent distress Skin: warm Respiratory: decreased breath sounds Heart: S1S2, RRR Abdomen: soft, other (HYPOACTIVE) Extremities: pulses present, no edema Neurology: alert Assessment Assessment IMP CKD 4 WITH CR OF ABOUT 2.5 AT BASELINE [place] WITH CR OF ABOUT 5.0 AND NOW DOWN TO 3.3 ANEMIA SBO VS ILEUS PLAN NOT EATING WELL RESUME PPN FOR NOW GI EVAL STOP IVF'S LIONEL BRAGA MD May 09, 2017 12:35
[2017-05-09] MEDS ORDERED: AMINO AC 3%/ELECTROLYTE/GLYCER 1,000 ML IV SCH (12:45)
[2017-05-09] MEDS: DOCUSATE SODIUM 100 MG CAPSULE. PO SCH (12:52)
--- NOTE | 2017-05-09 13:24 | PDOC ---
Subjective: Subjective: Feels constipated although stooled yesterday. Hernia is bothersome. Not sure about nausea, feels "gurgly." Objective: Vital Signs: Vital Signs Date Time Temp Pulse Resp B/P (MAP) Pulse Ox O2 Delivery O2 Flow Rate FiO2 05/09/17 12:53 95 Room Air 2.0 05/09/17 11:00 99.1 82 107/62 (77) 99.1 05/09/17 07:00 20 Labs: Laboratory Tests Test 05/08/17 15:57 05/09/17 05:30 Glucose (Fingerstick) 68 mg/dL White Blood Count 5.5 x10^3/uL Red Blood Count 2.74 x10^6/uL Hemoglobin 7.8 g/dL Hematocrit 24.3 % Mean Corpuscular Volume 89 fL Mean Corpuscular Hemoglobin 29 pg Mean Corpuscular Hemoglobin Concent 32 g/dL Red Cell Distribution Width 15.7 % Platelet Count 95 x10^3/uL Neutrophils (%) (Auto) 68 % Lymphocytes (%) (Auto) 20 % Monocytes (%) (Auto) 9 % Eosinophils (%) (Auto) 3 % Basophils (%) (Auto) 1 % Neutrophils # (Auto) 3.7 x10^3uL Lymphocytes # (Auto) 1.1 x10^3/uL Monocytes # (Auto) 0.5 x10^3/uL Eosinophils # (Auto) 0.1 x10^3/uL Basophils # (Auto) 0.0 x10^3/uL Sodium Level 138 mmol/L Potassium Level 5.0 mmol/L Chloride Level 103 mmol/L Carbon Dioxide Level 28 mmol/L Anion Gap 7 Blood Urea Nitrogen 69 mg/dL Creatinine 3.3 mg/dL Estimated GFR (Cockcroft-Gault) 13.9 BUN/Creatinine Ratio 21 Glucose Level 83 mg/dL Calcium Level 8.4 mg/dL Phosphorus Level 2.8 mg/dL Total Bilirubin 0.2 mg/dL Aspartate Amino Transf (AST/SGOT) 20 U/L Alanine Aminotransferase (ALT/SGPT) 19 U/L Alkaline Phosphatase 56 U/L Total Protein 5.4 g/dL Albumin 2.6 g/dL Albumin/Globulin Ratio 0.9 Imaging: EGD 05/08/17: PE: GEN: NAD, just finished lunch LUNGS: clear HEART: RRR ABD: BS+, protruding hernia - seems more tender todayce NEURO/PSYCH: A & O 3 A/P: H/o colon cancer w/ elevated CEA -diagnosed in 2004 at [facility], s/p resection, no colonoscopy since -chronic anemia w/ CKD SBO - resolved but feels constipated today -multiple abd surgeries -protuberant hernia on exam (more tender today?), surgery following Nausea, early satiety -EGD as above unrevealing, on PPI -- Try Miralax. Outpt colonoscopy. Hernia per surgery. GRISELDA EVANS May 09, 2017 13:24
[2017-05-09 15:00] VITALS: BP 124/64
[2017-05-09] MEDS: AMINO AC 3%/ELECTROLYTE/GLYCER 1,000 ML IV SCH (18:30)
[2017-05-09 19:00] VITALS: BP 145/82
[2017-05-09 23:00] VITALS: BP 138/73
[2017-05-10 03:00] VITALS: BP 135/72
[2017-05-10] MEDS: BUDESONIDE 0.5 MG/2 ML NEBU. NEB SCH ×2 (07:26→19:33)
[2017-05-10] MEDS: IPRATRPIUM/ALBUTEROL 0.5/2.5MG 3 ML NEBU. NEB SCH ×4 (07:26→19:33)
[2017-05-10 07:30] VITALS: BP 160/87
[2017-05-10 08:19] LABS: ALBUMIN 2.8 g/dL (3.4-5.0); CALCIUM 8.9 mg/dL (8.5-10.1); GFR 15.5; PHOSPHORUS 2.5 mg/dL (2.6-4.7); POTASSIUM 5.1 mmol/L (3.5-5.1)
[2017-05-10] MEDS: SUCRALFATE 1 GM TABLET. PO SCH ×4 (08:27→21:12)
[2017-05-10] MEDS: DOCUSATE SODIUM 100 MG CAPSULE. PO SCH (08:27)
[2017-05-10] MEDS: CALCIUM CARBONATE 500 MG TABLET PO SCH ×3 (08:27→17:13)
[2017-05-10] MEDS: PANTOPRAZOLE 40 MG TABLET.DR. PO SCH (08:28)
[2017-05-10] MEDS: CALCITRIOL 0.25 MCG CAPSULE. PO SCH (08:28)
[2017-05-10] MEDS: POLYETHYLENE GLYCOL 3350 17 GM PACKET. PO SCH (08:28)
[2017-05-10] MEDS: amLODIPine BESYLATE 10 MG TABLET PO SCH (08:34)
[2017-05-10] MEDS: AMINO AC 3%/ELECTROLYTE/GLYCER 1,000 ML IV SCH ×2 (08:35→21:12)
[2017-05-10] MEDS: VITAMIN B12,B9,B6 COMPLEX 1 TABLET. PO SCH (08:35)
[2017-05-10] MEDS ORDERED: ERGOCALCIFEROL (VITAMIN D2) 50,000 UNIT CAPSULE. PO SCH (09:00)
--- NOTE | 2017-05-10 09:34 | PDOC ---
PULMONARY PROGRESS NOTES Subjective PT NO INCREASE SOA Vitals Vital Signs Date Time Temp Pulse Resp B/P (MAP) Pulse Ox O2 Delivery O2 Flow Rate FiO2 05/10/17 08:34 94 160/87 05/10/17 07:30 99.3 18 97 Room Air 99.3 05/09/17 12:53 2.0 ROS: No Nausea, No Chest Pain, No Increase Cough General: Alert, No acute distress Lungs: Clear Cardiovascular: S1, S2 Abdomen: Soft, Non-tender Neuro Exam: Alert Extremities: No Edema Skin: Warm Labs Laboratory Tests Test 05/08/17 15:57 05/09/17 05:30 05/10/17 07:15 Glucose (Fingerstick) 68 mg/dL (70-99) White Blood Count 5.5 x10^3/uL (4.0-11.0) Red Blood Count 2.74 x10^6/uL (3.50-5.40) Hemoglobin 7.8 g/dL (12.0-15.5) Hematocrit 24.3 % (36.0-47.0) Mean Corpuscular Volume 89 fL (79-100) Mean Corpuscular Hemoglobin 29 pg (25-35) Mean Corpuscular Hemoglobin Concent 32 g/dL (31-37) Red Cell Distribution Width 15.7 % (11.5-14.5) Platelet Count 95 x10^3/uL (140-400) Neutrophils (%) (Auto) 68 % (31-73) Lymphocytes (%) (Auto) 20 % (24-48) Monocytes (%) (Auto) 9 % (0-9) Eosinophils (%) (Auto) 3 % (0-3) Basophils (%) (Auto) 1 % (0-3) Neutrophils # (Auto) 3.7 x10^3uL (1.8-7.7) Lymphocytes # (Auto) 1.1 x10^3/uL (1.0-4.8) Monocytes # (Auto) 0.5 x10^3/uL (0.0-1.1) Eosinophils # (Auto) 0.1 x10^3/uL (0.0-0.7) Basophils # (Auto) 0.0 x10^3/uL (0.0-0.2) Sodium Level 138 mmol/L (136-145) 138 mmol/L (136-145) Potassium Level 5.0 mmol/L (3.5-5.1) 5.1 mmol/L (3.5-5.1) Chloride Level 103 mmol/L (98-107) 103 mmol/L (98-107) Carbon Dioxide Level 28 mmol/L (21-32) 28 mmol/L (21-32) Anion Gap 7 (6-14) 7 (6-14) Blood Urea Nitrogen 69 mg/dL (7-20) 71 mg/dL (7-20) Creatinine 3.3 mg/dL (0.6-1.0) 3.0 mg/dL (0.6-1.0) Estimated GFR (Cockcroft-Gault) 13.9 15.5 BUN/Creatinine Ratio 21 (6-20) Glucose Level 83 mg/dL (70-99) 99 mg/dL (70-99) Calcium Level 8.4 mg/dL (8.5-10.1) 8.9 mg/dL (8.5-10.1) Phosphorus Level 2.8 mg/dL (2.6-4.7) 2.5 mg/dL (2.6-4.7) Total Bilirubin 0.2 mg/dL (0.2-1.0) Aspartate Amino Transf (AST/SGOT) 20 U/L (15-37) Alanine Aminotransferase (ALT/SGPT) 19 U/L (14-59) Alkaline Phosphatase 56 U/L (46-116) Total Protein 5.4 g/dL (6.4-8.2) Albumin 2.6 g/dL (3.4-5.0) 2.8 g/dL (3.4-5.0) Albumin/Globulin Ratio 0.9 (1.0-1.7) Laboratory Tests Test 05/10/17 07:15 Sodium Level 138 mmol/L (136-145) Potassium Level 5.1 mmol/L (3.5-5.1) Chloride Level 103 mmol/L (98-107) Carbon Dioxide Level 28 mmol/L (21-32) Anion Gap 7 (6-14) Blood Urea Nitrogen 71 mg/dL (7-20) Creatinine 3.0 mg/dL (0.6-1.0) Estimated GFR (Cockcroft-Gault) 15.5 Glucose Level 99 mg/dL (70-99) Calcium Level 8.9 mg/dL (8.5-10.1) Phosphorus Level 2.5 mg/dL (2.6-4.7) Albumin 2.8 g/dL (3.4-5.0) Medications Active Scripts Medications Dose Route/Sig Max Daily Dose Days Date Category Vitamin D2 (Ergocalciferol (Vitamin D2)) 50,000 Unit Capsule 50,000 Unit PO WEEKLY 12/07/16 Rx Folbic Tablet (Cyanocobalamin/Fa/Pyridoxine) 1 Each Tablet 1 Tab PO DAILY 12/07/16 Rx Calcitriol 0.25 Mcg Capsule 0.25 Mcg PO DAILY 12/07/16 Rx Flovent 50MCG Diskus (Fluticasone Propionate) 50 Mcg Disk.w.dev 50 Mcg IH BID 09/04/13 Reported Imodium A-D (Loperamide Hcl) 1 Mg/7.5 Ml Liquid 2 Mg PO DAILY08 09/04/13 Reported Norvasc (Amlodipine Besylate) 10 Mg Tablet 10 Mg PO DAILY08 09/04/13 Reported Impression . 1. Abnormal arterial blood gases secondary to acute metabolic acidosis with respiratory compensation. 2. Increased anion gap metabolic acidosis 3. History of asthma as a child. 4. Clear chest x-ray. 5. Acute renal failure, 6. Small-bowel obstruction. Plan . RESP STATUS COMPENSATED CONTINUE THE SAME FLOVENT OUTPT FOLLOW RENAL INPUT LYRIC SMART MD May 10, 2017 09:34
--- NOTE | 2017-05-10 10:26 | PDOC ---
PROGRESS NOTES Chief Complaint Chief Complaint Small-bowel obstruction. 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 acute metabolic gap acidosis Prior Hx of colon cancer. History of Present Illness History of Present Illness taking PO, not much has stool, hard pieces and loose stool mixed, cont, miralax, colace advance diet as able, DC soon, PO intake should improve, gen surg worried about fecalith or impaction, GI consulted renal following Vitals Vitals Vital Signs Date Time Temp Pulse Resp B/P (MAP) Pulse Ox O2 Delivery O2 Flow Rate FiO2 05/10/17 08:34 94 160/87 05/10/17 07:30 99.3 18 97 Room Air 99.3 05/09/17 12:53 2.0 Physical Exam General: Alert, Oriented X3 Heart: Normal S1, Normal S2 Lungs: Clear Abdomen: Soft, No tenderness Extremities: No clubbing, No edema Skin: No rashes Labs LABS Laboratory Tests Test 05/10/17 07:15 Sodium Level 138 mmol/L (136-145) Potassium Level 5.1 mmol/L (3.5-5.1) Chloride Level 103 mmol/L (98-107) Carbon Dioxide Level 28 mmol/L (21-32) Anion Gap 7 (6-14) Blood Urea Nitrogen 71 mg/dL (7-20) Creatinine 3.0 mg/dL (0.6-1.0) Estimated GFR (Cockcroft-Gault) 15.5 Glucose Level 99 mg/dL (70-99) Calcium Level 8.9 mg/dL (8.5-10.1) Phosphorus Level 2.5 mg/dL (2.6-4.7) Albumin 2.8 g/dL (3.4-5.0) Assessment and Plan Assessmemt and Plan Problems Medical Problems: (1) Anemia Status: Acute (2) Renal failure Status: Acute Problems: Comment Review of Relevant I have reviewed the following items yoel (where applicable) has been applied. Labs Laboratory Tests Test 05/08/17 15:57 05/09/17 05:30 05/10/17 07:15 Glucose (Fingerstick) 68 mg/dL (70-99) White Blood Count 5.5 x10^3/uL (4.0-11.0) Red Blood Count 2.74 x10^6/uL (3.50-5.40) Hemoglobin 7.8 g/dL (12.0-15.5) Hematocrit 24.3 % (36.0-47.0) Mean Corpuscular Volume 89 fL (79-100) Mean Corpuscular Hemoglobin 29 pg (25-35) Mean Corpuscular Hemoglobin Concent 32 g/dL (31-37) Red Cell Distribution Width 15.7 % (11.5-14.5) Platelet Count 95 x10^3/uL (140-400) Neutrophils (%) (Auto) 68 % (31-73) Lymphocytes (%) (Auto) 20 % (24-48) Monocytes (%) (Auto) 9 % (0-9) Eosinophils (%) (Auto) 3 % (0-3) Basophils (%) (Auto) 1 % (0-3) Neutrophils # (Auto) 3.7 x10^3uL (1.8-7.7) Lymphocytes # (Auto) 1.1 x10^3/uL (1.0-4.8) Monocytes # (Auto) 0.5 x10^3/uL (0.0-1.1) Eosinophils # (Auto) 0.1 x10^3/uL (0.0-0.7) Basophils # (Auto) 0.0 x10^3/uL (0.0-0.2) Sodium Level 138 mmol/L (136-145) 138 mmol/L (136-145) Potassium Level 5.0 mmol/L (3.5-5.1) 5.1 mmol/L (3.5-5.1) Chloride Level 103 mmol/L (98-107) 103 mmol/L (98-107) Carbon Dioxide Level 28 mmol/L (21-32) 28 mmol/L (21-32) Anion Gap 7 (6-14) 7 (6-14) Blood Urea Nitrogen 69 mg/dL (7-20) 71 mg/dL (7-20) Creatinine 3.3 mg/dL (0.6-1.0) 3.0 mg/dL (0.6-1.0) Estimated GFR (Cockcroft-Gault) 13.9 15.5 BUN/Creatinine Ratio 21 (6-20) Glucose Level 83 mg/dL (70-99) 99 mg/dL (70-99) Calcium Level 8.4 mg/dL (8.5-10.1) 8.9 mg/dL (8.5-10.1) Phosphorus Level 2.8 mg/dL (2.6-4.7) 2.5 mg/dL (2.6-4.7) Total Bilirubin 0.2 mg/dL (0.2-1.0) Aspartate Amino Transf (AST/SGOT) 20 U/L (15-37) Alanine Aminotransferase (ALT/SGPT) 19 U/L (14-59) Alkaline Phosphatase 56 U/L (46-116) Total Protein 5.4 g/dL (6.4-8.2) Albumin 2.6 g/dL (3.4-5.0) 2.8 g/dL (3.4-5.0) Albumin/Globulin Ratio 0.9 (1.0-1.7) Laboratory Tests Test 05/10/17 07:15 Sodium Level 138 mmol/L (136-145) Potassium Level 5.1 mmol/L (3.5-5.1) Chloride Level 103 mmol/L (98-107) Carbon Dioxide Level 28 mmol/L (21-32) Anion Gap 7 (6-14) Blood Urea Nitrogen 71 mg/dL (7-20) Creatinine 3.0 mg/dL (0.6-1.0) Estimated GFR (Cockcroft-Gault) 15.5 Glucose Level 99 mg/dL (70-99) Calcium Level 8.9 mg/dL (8.5-10.1) Phosphorus Level 2.5 mg/dL (2.6-4.7) Albumin 2.8 g/dL (3.4-5.0) Microbiology 05/04/17 Urine Culture - Final, Complete 05/04/17 Urine Culture Result 1 (OLAMIDE) - Final, Complete 05/04/17 Antimicrobic Susceptibility - Final, Complete Medications Current Medications Ondansetron HCl (Zofran) 4 mg 1X ONCE IV Last administered on 05/02/17t 23:27 ; Start 05/02/17 at 23:15; Stop 05/02/17 at 23:16; Status DC Multi-Ingredient Mouthwash/Gargle (Gi Cocktail Single Dose) 15 ml 1X ONCE SWSW Last administered on 05/02/17 23:27; Start 05/02/17 at 23:15; Stop 05/02/17 at 23:16; Status DC Sodium Bicarbonate 100 meq 1X ONCE IV Last administered on 05/03/17 01:17; Start 05/03/17 at 01:15; Stop 05/03/17 at 01:16; Status DC Ondansetron HCl (Zofran) 4 mg PRN Q8HRS PRN IV NAUSEA/VOMITING; Start 05/03/17 at 01:15; Stop 05/04/17 at 01:14; Status DC Morphine Sulfate 2 mg PRN Q2HR PRN IV PAIN; Start 05/03/17 at 01:15; Stop 05/04 at 01:14; Status DC Sodium Chloride 1,000 ml @ 125 mls/hr 1X ONCE IV Last administered on 04:45; Start 05/03/17 at 04:30; Stop 05/04/17 at 10:02; Status DC Magnesium Sulfate/ Dextrose 50 ml @ 25 mls/hr PRN DAILY PRN IV for Mag < 1.7 on am labs; Start 05/03/17 at 09:15 Sodium Bicarbonate 75 meq/Sodium Chloride 1,075 ml @ 75 mls/hr [id number] IV Last administered on 05/03/17 17:17; Start 05/03/17 at 10:00; Stop 05/03/17 at 21:50; Status DC Budesonide (Pulmicort) 0.5 mg RTBID NEB Last administered on 05/10/17 07:26; Start 05/03/17 at 12:00 Sodium Chloride 1,000 ml @ 250 mls/hr 1X ONCE IV Last administered on 13:17; Start 05/03/17 at 12:30; Stop 05/03/17 at 16:44; Status DC Amlodipine Besylate (Norvasc) 10 mg DAILY08 PO Last administered on 05/10/17 08:34; Start 05/03/17 at 15:00 Calcitriol (Rocaltrol) 0.25 mcg DAILY PO Last administered on 05/10/17 08:28; Start 05/03/17 at 15:00 Vitamin B Complex (Folbic Tablet) 1 tab DAILY PO Last administered on 08:35; Start 05/03/17 at 15:00 Ergocalciferol (Vitamin D2) 50,000 unit WEEKLY PO Last administered on 08:28; Start 05/10/17 at 09:00 Non-Formulary Medication 50 mcg BID IH ; Start 05/03/17 at 21:00; Stop 05/03/17 at 21:00; Status DC Loperamide HCl (Imodium) 2 mg DAILY08 PO Last administered on 05/05/17 09:30; Start 05/03/17 at 15:00; Stop 05/05/17 at 10:49; Status DC Sodium Chloride 1,000 ml @ 100 mls/hr Q10H IV Last administered on 05/04/17 06:01; Start 05/03/17 at 21:30; Stop 05/04/17 at 07:04; Status DC Sodium Chloride 1,000 ml @ 100 mls/hr Q10H IV Last administered on 05/04/17 07:10; Start 05/04/17 at 07:30; Stop 05/04/17 at 10:02; Status DC Sodium Bicarbonate 75 meq/Potassium Acetate 20 meq/ Dextrose 1,085 ml @ 50 mls/ hr [id number] IV Last administered on 05/08/17 20:36; Start 05/04/17 at 10:00; Stop 05/09/17 at 12:37; Status DC Darbepoetin Jono (Aranesp) 60 mcg WEEKLYHS SQ Last administered on 05/04/17 20 :51; Start 05/04/17 at 21:00 Lidocaine/Sodium Bicarbonate (Buffered Lidocaine 1%) 20 ml STK-MED ONCE IJ ; Start 05/04/17 at 10:23; Stop 05/04/17 at 10:24; Status DC Heparin Sodium (Porcine) (Heparin Sodium) 10,000 unit STK-MED ONCE .ROUTE ; Start 05/04/17 at 10:23; Stop 05/04/17 at 10:24; Status DC Heparin Sodium/ Sodium Chloride 500 ml @ As Directed STK-MED ONCE .ROUTE ; Start 05/04/17 at 10:23; Stop 05/04/17 at 10:24; Status DC Lidocaine/Sodium Bicarbonate (Buffered Lidocaine 1%) 20 ml 1X ONCE IJ Last administered on 05/04/17 11:22; Start 05/04/17 at 11:00; Stop 05/04/17 at 11:02 ; Status DC Heparin Sodium/ Sodium Chloride 1,000 unit 1X ONCE IV Last administered on 11:23; Start 05/04/17 at 11:00; Stop 05/04/17 at 11:02; Status DC Heparin Sodium (Porcine) (Heparin Sodium) 2,600 unit 1X ONCE INT CAT Last administered on 05/04/17 11:22; Start 05/04/17 at 11:00; Stop 05/04/17 at 11:02 ; Status DC Acetaminophen (Tylenol) 650 mg PRN Q6HRS PRN PO MILD PAIN Last administered on 05/09/17 08:39; Start 05/04/17 at 18:15 Tramadol HCl (Ultram) 50 mg PRN Q6HRS PRN PO PAIN Last administered on 11:12; Start 05/04/17 at 18:15 Morphine Sulfate 2 mg PRN Q4HRS PRN IV PAIN Last administered on 05/08/17 02: 24; Start 05/04/17 at 18:15 Magnesium Sulfate/ Dextrose 50 ml @ 25 mls/hr 1X ONCE IV Last administered on 05/05/17 02:52; Start 05/05/17 at 02:45; Stop 05/05/17 at 04:44; Status DC Albuterol/ Ipratropium (Duoneb) 3 ml RTQID NEB Last administered on 05/10/17 07:26; Start 05/05/17 at 09:30 Amino Acids/ Glycerin/ Electrolytes 1,000 ml @ 80 mls/hr [id number] IV Last administered on 05/08/17 02:14; Start 05/05/17 at 11:30; Stop 05/08/17 at 11:50 ; Status DC Calcium Carbonate/ Glycine (Oscal) 500 mg TIDAFTMEAL PO Last administered on 08:27; Start 05/07/17 at 09:15 Ondansetron HCl (Zofran) 4 mg PRN Q8HRS PRN IV NAUSEA/VOMITING Last administered on 05/09/17 11:12; Start 05/07/17 at 09:15 Al Hydroxide/Mg Hydroxide (Mylanta Plus Xs) 30 ml PRN Q6HRS PRN PO HEARTBURN / GAS Last administered on 05/08/17 02:24; Start 05/07/17 at 09:15 Sucralfate (Carafate) 1 gm QIDACHS PO Last administered on 05/10/17 08:27; Start 05/07/17 at 21:00 Pantoprazole Sodium (Protonix) 40 mg DAILYAC PO Last administered on 05/10/17 08:28; Start 05/08/17 at 11:30 Ringer's Solution 1,000 ml @ 75 mls/hr [id number] IV Last administered on 16:15; Start 05/08/17 at 16:15; Stop 05/09/17 at 12:37; Status DC Midazolam HCl (Versed) 5 mg STK-MED ONCE .ROUTE ; Start 05/08/17 at 17:03; Stop 05/08/17 at 17:04; Status DC Fentanyl Citrate (Fentanyl 2ml Vial) 100 mcg STK-MED ONCE .ROUTE ; Start at 17:03; Stop 05/08/17 at 17:04; Status DC Midazolam HCl (Versed) 5 mg STK-MED ONCE IV Last administered on 05/08/17 17: 14; Start 05/08/17 at 17:14; Stop 05/08/17 at 17:16; Status DC Fentanyl Citrate (Fentanyl 2ml Vial) 100 mcg STK-MED ONCE IV Last administered on 05/08/17 17:16; Start 05/08/17 at 17:16; Stop 05/08/17 at 17:17; Status DC Midazolam HCl (Versed) 5 mg STK-MED ONCE IV Last administered on 05/08/17 17: 18; Start 05/08/17 at 17:18; Stop 05/08/17 at 17:21; Status DC Midazolam HCl (Versed) 5 mg STK-MED ONCE IV Last administered on 05/08/17 17: 24; Start 05/08/17 at 17:24; Stop 05/08/17 at 17:26; Status DC Docusate Sodium (Colace) 100 mg DAILY PO Last administered on 05/10/17 08:27; Start 05/09/17 at 12:15 Polyethylene Glycol (miraLAX PACKET) 17 gm 1X ONCE PO Last administered on 12:53; Start 05/09/17 at 12:15; Stop 05/09/17 at 12:16; Status DC Polyethylene Glycol (miraLAX PACKET) 17 gm DAILY PO Last administered on 08:28; Start 05/10/17 at 09:00 Bisacodyl (Dulcolax Tab) 10 mg PRN DAILY PRN PO CONSTIPATION Last administered on 05/09/17 18:34; Start 05/09/17 at 12:30 Amino Acids/ Glycerin/ Electrolytes 1,000 ml @ 80 mls/hr [id number] IV ; Start at 12:45; Stop 05/09/17 at 17:23; Status DC Polyethylene Glycol (miraLAX PACKET) 17 gm 1X ONCE PO ; Start 05/09/17 at 14:00 ; Stop 05/09/17 at 14:01; Status DC Amino Acids/ Glycerin/ Electrolytes 1,000 ml @ 80 mls/hr [id number] IV Last administered on 05/10/17 08:35; Start 05/09/17 at 19:00 Active Scripts Active Vitamin D2 (Ergocalciferol (Vitamin D2)) 50,000 Unit Capsule 50,000 Unit PO WEEKLY Folbic Tablet (Cyanocobalamin/Fa/Pyridoxine) 1 Each Tablet 1 Tab PO DAILY Calcitriol 0.25 Mcg Capsule 0.25 Mcg PO DAILY Reported Flovent 50MCG Diskus (Fluticasone Propionate) 50 Mcg Disk.w.dev 50 Mcg IH BID Imodium A-D (Loperamide Hcl) 1 Mg/7.5 Ml Liquid 2 Mg PO DAILY08 Norvasc (Amlodipine Besylate) 10 Mg Tablet 10 Mg PO DAILY08 Vitals/I & O Vital Sign - Last 24 Hours 05/09/17 05/09/17 05/09/17 05/09/17 11:00 11:12 11:25 12:53 Temp 99.1 99.1 Pulse 82 B/P (MAP) 107/62 (77) Pulse Ox 97 95 95 O2 Delivery Room Air Room Air Room Air O2 Flow Rate 2.0 05/09/17 05/09/17 05/09/17 05/09/17 15:00 19:00 19:23 20:00 Temp 98.2 98.1 98.2 98.1 Pulse 83 86 Resp 20 18 B/P (MAP) 124/64 (84) 145/82 (103) Pulse Ox 94 95 O2 Delivery Room Air Room Air Room Air Room Air 05/09/17 05/10/17 05/10/17 05/10/17 23:00 03:00 07:27 07:30 Temp 98.4 99.1 99.3 98.4 99.1 99.3 Pulse 76 85 94 Resp 18 18 18 B/P (MAP) 138/73 (94) 135/72 (93) 160/87 (111) Pulse Ox 95 93 94 97 O2 Delivery Room Air Room Air Room Air Room Air 05/10/17 08:34 Pulse 94 B/P (MAP) 160/87 Intake and Output 05/10/17 05/10/17 05/11/17 15:00 23:00 07:00 Intake Total 300 ml Output Total 700 ml Balance -400 ml JONY PRIEST MD May 10, 2017 10:26
[2017-05-10 10:30] VITALS: BP 165/97
--- NOTE | 2017-05-10 11:38 | PDOC ---
Renal-Progress Notes Subjective Notes Notes NO NEW COMPLAINTS History of Present Illness Hx of present illness STABLE Vitals Vitals Vital Signs Date Time Temp Pulse Resp B/P (MAP) Pulse Ox O2 Delivery O2 Flow Rate FiO2 05/10/17 11:23 95 Room Air 05/10/17 10:30 98.9 93 18 165/97 (119) 98.9 05/09/17 12:53 2.0 Weight Weight [ ] I.O. Intake and Output Intake and Output 05/11/17 07:00 Intake Total 300 ml Output Total 700 ml Balance -400 ml Intake Oral 300 ml Output Urine Total 700 ml # Bowel Movements 1 Labs Labs Laboratory Tests Test 05/10/17 07:15 Sodium Level 138 mmol/L (136-145) Potassium Level 5.1 mmol/L (3.5-5.1) Chloride Level 103 mmol/L (98-107) Carbon Dioxide Level 28 mmol/L (21-32) Anion Gap 7 (6-14) Blood Urea Nitrogen 71 mg/dL (7-20) Creatinine 3.0 mg/dL (0.6-1.0) Estimated GFR (Cockcroft-Gault) 15.5 Glucose Level 99 mg/dL (70-99) Calcium Level 8.9 mg/dL (8.5-10.1) Phosphorus Level 2.5 mg/dL (2.6-4.7) Albumin 2.8 g/dL (3.4-5.0) Micro Micro Microbiology 05/04/17 Urine Culture - Final, Complete 05/04/17 Urine Culture Result 1 (OLAMIDE) - Final, Complete 05/04/17 Antimicrobic Susceptibility - Final, Complete Review of Systems Constitutional: yes: malaise, weakness, alert, oriented Ears/Nose/Throat: Yes: no symptom reported Eyes: Yes: no symptom reported Cardiovascular: Yes no symptom reported Gastrointestional: Yes: nausea Genitourinary: Yes: no symptom reported Musculoskeletal: Yes: muscle stiffness Skin: Yes no symptom reported Psychiatric/Neurological: Yes: no symptom reported Endocrine: Yes: no symptom reported Hematologic/Lymphatic: Yes: no symptom reported Physical Exam General Appearance: no apparent distress Skin: warm Respiratory: decreased breath sounds Heart: S1S2, RRR Abdomen: soft, other (HYPOACTIVE) Extremities: pulses present, no edema Neurology: alert Assessment Assessment IMP CKD 4 WITH CR OF ABOUT 2.5 AT BASELINE [place] WITH CR OF ABOUT 5.0 AND NOW DOWN TO 3.0 ANEMIA SBO VS ILEUS HX COLON CA WITH RESECTION PLAN CONT PPN FOR NOW GI EVAL OP F/U WITH MY PARTNER DR MONTANO AT DISCHARGE LIONEL BRAGA MD May 10, 2017 11:38
--- NOTE | 2017-05-10 11:47 | PDOC ---
Subjective: Subjective: Feels much better today. Significant stooling this morning. No pain. Objective: Vital Signs: Vital Signs Date Time Temp Pulse Resp B/P (MAP) Pulse Ox O2 Delivery O2 Flow Rate FiO2 05/10/17 11:23 95 Room Air 05/10/17 10:30 98.9 93 18 165/97 (119) 98.9 05/09/17 12:53 2.0 Labs: Laboratory Tests Test 05/10/17 07:15 Sodium Level 138 mmol/L Potassium Level 5.1 mmol/L Chloride Level 103 mmol/L Carbon Dioxide Level 28 mmol/L Anion Gap 7 Blood Urea Nitrogen 71 mg/dL Creatinine 3.0 mg/dL Estimated GFR (Cockcroft-Gault) 15.5 Glucose Level 99 mg/dL Calcium Level 8.9 mg/dL Phosphorus Level 2.5 mg/dL Albumin 2.8 g/dL PE: GEN: NAD LUNGS: CTAB HEART: RRR ABD: BS+, hernia protuberant but less tender today NEURO/PSYCH: A & O 3 A/P: H/o colon cancer w/ elevated CEA -diagnosed in 2004 at [facility], s/p resection, no colonoscopy since -chronic anemia w/ CKD SBO (resolved), constipation (resolved) -multiple abd surgeries -on Miralax -protuberant hernia on exam (less tender today) Nausea, early satiety -EGD this admit w/ non-erosive gastritis, on PPI -- DC per primary. Outpt colonoscopy. Continue Miralax. GRISELDA EVANS May 10, 2017 11:47
--- NOTE | 2017-05-10 13:36 | PDOC ---
SABRINA SOLER RESIDENCE MANAGER 05/10/17 1336: SURGICAL PROGRESS NOTE Subjective abdomen is sore from constipation--does feel better now that she is having stool feels gassy thinks the food is too hard on her digestive system--she is sensitive to foods Vital Signs Vital Signs Date Time Temp Pulse Resp B/P (MAP) Pulse Ox O2 Delivery O2 Flow Rate FiO2 05/10/17 11:23 95 Room Air 05/10/17 10:30 98.9 93 18 165/97 (119) 98.9 05/10/17 08:00 2.0 I&O Intake and Output 05/11/17 06:59 Intake Total 300 ml Output Total 700 ml Balance -400 ml Intake Oral 300 ml Output Urine Total 700 ml # Bowel Movements 1 General: Alert, Oriented X3, Cooperative, No acute distress Abdomen: Soft, Other (distended, mild tenderness, no guarding or rebound) Labs Laboratory Tests Test 05/08/17 15:57 05/09/17 05:30 05/10/17 07:15 Glucose (Fingerstick) 68 mg/dL (70-99) White Blood Count 5.5 x10^3/uL (4.0-11.0) Red Blood Count 2.74 x10^6/uL (3.50-5.40) Hemoglobin 7.8 g/dL (12.0-15.5) Hematocrit 24.3 % (36.0-47.0) Mean Corpuscular Volume 89 fL (79-100) Mean Corpuscular Hemoglobin 29 pg (25-35) Mean Corpuscular Hemoglobin Concent 32 g/dL (31-37) Red Cell Distribution Width 15.7 % (11.5-14.5) Platelet Count 95 x10^3/uL (140-400) Neutrophils (%) (Auto) 68 % (31-73) Lymphocytes (%) (Auto) 20 % (24-48) Monocytes (%) (Auto) 9 % (0-9) Eosinophils (%) (Auto) 3 % (0-3) Basophils (%) (Auto) 1 % (0-3) Neutrophils # (Auto) 3.7 x10^3uL (1.8-7.7) Lymphocytes # (Auto) 1.1 x10^3/uL (1.0-4.8) Monocytes # (Auto) 0.5 x10^3/uL (0.0-1.1) Eosinophils # (Auto) 0.1 x10^3/uL (0.0-0.7) Basophils # (Auto) 0.0 x10^3/uL (0.0-0.2) Sodium Level 138 mmol/L (136-145) 138 mmol/L (136-145) Potassium Level 5.0 mmol/L (3.5-5.1) 5.1 mmol/L (3.5-5.1) Chloride Level 103 mmol/L (98-107) 103 mmol/L (98-107) Carbon Dioxide Level 28 mmol/L (21-32) 28 mmol/L (21-32) Anion Gap 7 (6-14) 7 (6-14) Blood Urea Nitrogen 69 mg/dL (7-20) 71 mg/dL (7-20) Creatinine 3.3 mg/dL (0.6-1.0) 3.0 mg/dL (0.6-1.0) Estimated GFR (Cockcroft-Gault) 13.9 15.5 BUN/Creatinine Ratio 21 (6-20) Glucose Level 83 mg/dL (70-99) 99 mg/dL (70-99) Calcium Level 8.4 mg/dL (8.5-10.1) 8.9 mg/dL (8.5-10.1) Phosphorus Level 2.8 mg/dL (2.6-4.7) 2.5 mg/dL (2.6-4.7) Total Bilirubin 0.2 mg/dL (0.2-1.0) Aspartate Amino Transf (AST/SGOT) 20 U/L (15-37) Alanine Aminotransferase (ALT/SGPT) 19 U/L (14-59) Alkaline Phosphatase 56 U/L (46-116) Total Protein 5.4 g/dL (6.4-8.2) Albumin 2.6 g/dL (3.4-5.0) 2.8 g/dL (3.4-5.0) Albumin/Globulin Ratio 0.9 (1.0-1.7) Laboratory Tests Test 05/10/17 07:15 Sodium Level 138 mmol/L (136-145) Potassium Level 5.1 mmol/L (3.5-5.1) Chloride Level 103 mmol/L (98-107) Carbon Dioxide Level 28 mmol/L (21-32) Anion Gap 7 (6-14) Blood Urea Nitrogen 71 mg/dL (7-20) Creatinine 3.0 mg/dL (0.6-1.0) Estimated GFR (Cockcroft-Gault) 15.5 Glucose Level 99 mg/dL (70-99) Calcium Level 8.9 mg/dL (8.5-10.1) Phosphorus Level 2.5 mg/dL (2.6-4.7) Albumin 2.8 g/dL (3.4-5.0) Problem List Problems Medical Problems: (1) Anemia Status: Acute (2) Renal failure Status: Acute Assessment/Plan multiple stools diet as tolerated bowel regimen Problems: NEMESIO BRICENO MD 05/10/17 1616: SURGICAL PROGRESS NOTE Assessment/Plan pt seen earlier today agree with above Problems: SABRINA SOLER APRN May 10, 2017 13:36 NEMESIO BRICENO MD May 10, 2017 16:16
--- NOTE | 2017-05-10 13:56 | PDOC ---
PROGRESS NOTES Subjective Subjective HPI - f/u of anemia, h/o colon ca ROS - no abd pain Objective Objective Vital Signs Date Time Temp Pulse Resp B/P (MAP) Pulse Ox O2 Delivery O2 Flow Rate FiO2 05/10/17 11:23 95 Room Air 05/10/17 10:30 98.9 93 18 165/97 (119) 98.9 05/10/17 08:00 2.0 Intake and Output 05/11/17 07:00 Intake Total 300 ml Output Total 700 ml Balance -400 ml Intake Oral 300 ml Output Urine Total 700 ml # Bowel Movements 1 Physical Exam Heart: Normal S1, Normal S2 General: Alert, Oriented X3 Lungs: Clear to auscultation Neuro: Normal speech Psych/Mental Status: Mental status NL Assessment Assessment Problems Medical Problems: (1) Anemia Status: Acute (2) Renal failure Status: Acute IMPRESSION AND PLAN: 1. Small-bowel obstruction. Appreciate surgical consultation and management. 2. Anemia due to CKD. She has history of B12 deficiency. B12 levels are now normal. Agree to monitor Hb and transfuse as needed. Agree with aranesp. Hb now 7.8. 3. Thrombocytopenia. Reactive, B12 is now normal. h/o pancytopenia due to B12 def in past - bone marrow bx 08/06/16: Path report: The constellation of peripheral blood, bone marrow, and clinical laboratory findings are compatible with B12 deficiency. 4. Colon cancer in the past per pt. I obtained pathology records from [facility] since 1999 and there is no evidence of cancer. She had mentioned that the surgery was done at [facility] for cancer. She now mentions that it was done at . I will obtain records. CT scan does not reveal any evidence of recurrent colon cancer. CEA elevated 6.3 on 05/04/17, consulted GI. EGD 05/08/17 reveals non-erosive gastritis. I d/w Dr Riddle. CT chest 05/09/17 is neg for mets.. Comment Review of Relevant I have reviewed the following items yoel (where applicable) has been applied. Labs Laboratory Tests Test 05/08/17 15:57 05/09/17 05:30 05/10/17 07:15 Glucose (Fingerstick) 68 mg/dL (70-99) White Blood Count 5.5 x10^3/uL (4.0-11.0) Red Blood Count 2.74 x10^6/uL (3.50-5.40) Hemoglobin 7.8 g/dL (12.0-15.5) Hematocrit 24.3 % (36.0-47.0) Mean Corpuscular Volume 89 fL (79-100) Mean Corpuscular Hemoglobin 29 pg (25-35) Mean Corpuscular Hemoglobin Concent 32 g/dL (31-37) Red Cell Distribution Width 15.7 % (11.5-14.5) Platelet Count 95 x10^3/uL (140-400) Neutrophils (%) (Auto) 68 % (31-73) Lymphocytes (%) (Auto) 20 % (24-48) Monocytes (%) (Auto) 9 % (0-9) Eosinophils (%) (Auto) 3 % (0-3) Basophils (%) (Auto) 1 % (0-3) Neutrophils # (Auto) 3.7 x10^3uL (1.8-7.7) Lymphocytes # (Auto) 1.1 x10^3/uL (1.0-4.8) Monocytes # (Auto) 0.5 x10^3/uL (0.0-1.1) Eosinophils # (Auto) 0.1 x10^3/uL (0.0-0.7) Basophils # (Auto) 0.0 x10^3/uL (0.0-0.2) Sodium Level 138 mmol/L (136-145) 138 mmol/L (136-145) Potassium Level 5.0 mmol/L (3.5-5.1) 5.1 mmol/L (3.5-5.1) Chloride Level 103 mmol/L (98-107) 103 mmol/L (98-107) Carbon Dioxide Level 28 mmol/L (21-32) 28 mmol/L (21-32) Anion Gap 7 (6-14) 7 (6-14) Blood Urea Nitrogen 69 mg/dL (7-20) 71 mg/dL (7-20) Creatinine 3.3 mg/dL (0.6-1.0) 3.0 mg/dL (0.6-1.0) Estimated GFR (Cockcroft-Gault) 13.9 15.5 BUN/Creatinine Ratio 21 (6-20) Glucose Level 83 mg/dL (70-99) 99 mg/dL (70-99) Calcium Level 8.4 mg/dL (8.5-10.1) 8.9 mg/dL (8.5-10.1) Phosphorus Level 2.8 mg/dL (2.6-4.7) 2.5 mg/dL (2.6-4.7) Total Bilirubin 0.2 mg/dL (0.2-1.0) Aspartate Amino Transf (AST/SGOT) 20 U/L (15-37) Alanine Aminotransferase (ALT/SGPT) 19 U/L (14-59) Alkaline Phosphatase 56 U/L (46-116) Total Protein 5.4 g/dL (6.4-8.2) Albumin 2.6 g/dL (3.4-5.0) 2.8 g/dL (3.4-5.0) Albumin/Globulin Ratio 0.9 (1.0-1.7) Laboratory Tests Test 05/10/17 07:15 Sodium Level 138 mmol/L (136-145) Potassium Level 5.1 mmol/L (3.5-5.1) Chloride Level 103 mmol/L (98-107) Carbon Dioxide Level 28 mmol/L (21-32) Anion Gap 7 (6-14) Blood Urea Nitrogen 71 mg/dL (7-20) Creatinine 3.0 mg/dL (0.6-1.0) Estimated GFR (Cockcroft-Gault) 15.5 Glucose Level 99 mg/dL (70-99) Calcium Level 8.9 mg/dL (8.5-10.1) Phosphorus Level 2.5 mg/dL (2.6-4.7) Albumin 2.8 g/dL (3.4-5.0) Microbiology 05/04/17 Urine Culture - Final, Complete 05/04/17 Urine Culture Result 1 (OLAMIDE) - Final, Complete 05/04/17 Antimicrobic Susceptibility - Final, Complete Medications Current Medications Ondansetron HCl (Zofran) 4 mg 1X ONCE IV Last administered on 05/02/17 23:27 ; Start 05/02/17 at 23:15; Stop 05/02/17 at 23:16; Status DC Multi-Ingredient Mouthwash/Gargle (Gi Cocktail Single Dose) 15 ml 1X ONCE SWSW Last administered on 05/02/17 23:27; Start 05/02/17 at 23:15; Stop 05/02/17 at 23:16; Status DC Sodium Bicarbonate 100 meq 1X ONCE IV Last administered on 05/03/17 01:17; Start 05/03/17 at 01:15; Stop 05/03/17 at 01:16; Status DC Ondansetron HCl (Zofran) 4 mg PRN Q8HRS PRN IV NAUSEA/VOMITING; Start 05/03/17 at 01:15; Stop 05/04/17 at 01:14; Status DC Morphine Sulfate 2 mg PRN Q2HR PRN IV PAIN; Start 05/03/17 at 01:15; Stop 05/04 at 01:14; Status DC Sodium Chloride 1,000 ml @ 125 mls/hr 1X ONCE IV Last administered on 04:45; Start 05/03/17 at 04:30; Stop 05/04/17 at 10:02; Status DC Magnesium Sulfate/ Dextrose 50 ml @ 25 mls/hr PRN DAILY PRN IV for Mag < 1.7 on am labs; Start 05/03/17 at 09:15 Sodium Bicarbonate 75 meq/Sodium Chloride 1,075 ml @ 75 mls/hr [id number] IV Last administered on 05/03/17 17:17; Start 05/03/17 at 10:00; Stop 05/03/17 at 21:50; Status DC Budesonide (Pulmicort) 0.5 mg RTBID NEB Last administered on 05/10/17 07:26; Start 05/03/17 at 12:00 Sodium Chloride 1,000 ml @ 250 mls/hr 1X ONCE IV Last administered on 13:17; Start 05/03/17 at 12:30; Stop 05/03/17 at 16:44; Status DC Amlodipine Besylate (Norvasc) 10 mg DAILY08 PO Last administered on 05/10/17 08:34; Start 05/03/17 at 15:00 Calcitriol (Rocaltrol) 0.25 mcg DAILY PO Last administered on 05/10/17 08:28; Start 05/03/17 at 15:00 Vitamin B Complex (Folbic Tablet) 1 tab DAILY PO Last administered on 08:35; Start 05/03/17 at 15:00 Ergocalciferol (Vitamin D2) 50,000 unit WEEKLY PO Last administered on 08:28; Start 05/10/17 at 09:00 Non-Formulary Medication 50 mcg BID IH ; Start 05/03/17 at 21:00; Stop 05/03/17 at 21:00; Status DC Loperamide HCl (Imodium) 2 mg DAILY08 PO Last administered on 05/05/17 09:30; Start 05/03/17 at 15:00; Stop 05/05/17 at 10:49; Status DC Sodium Chloride 1,000 ml @ 100 mls/hr Q10H IV Last administered on 05/04/17 06:01; Start 05/03/17 at 21:30; Stop 05/04/17 at 07:04; Status DC Sodium Chloride 1,000 ml @ 100 mls/hr Q10H IV Last administered on 05/04/17 07:10; Start 05/04/17 at 07:30; Stop 05/04/17 at 10:02; Status DC Sodium Bicarbonate 75 meq/Potassium Acetate 20 meq/ Dextrose 1,085 ml @ 50 mls/ hr [id number] IV Last administered on 05/08/17 20:36; Start 05/04/17 at 10:00; Stop 05/09/17 at 12:37; Status DC Darbepoetin Jono (Aranesp) 60 mcg WEEKLYHS SQ Last administered on 05/04/17 20 :51; Start 05/04/17 at 21:00 Lidocaine/Sodium Bicarbonate (Buffered Lidocaine 1%) 20 ml STK-MED ONCE IJ ; Start 05/04/17 at 10:23; Stop 05/04/17 at 10:24; Status DC Heparin Sodium (Porcine) (Heparin Sodium) 10,000 unit STK-MED ONCE .ROUTE ; Start 05/04/17 at 10:23; Stop 05/04/17 at 10:24; Status DC Heparin Sodium/ Sodium Chloride 500 ml @ As Directed STK-MED ONCE .ROUTE ; Start 05/04/17 at 10:23; Stop 05/04/17 at 10:24; Status DC Lidocaine/Sodium Bicarbonate (Buffered Lidocaine 1%) 20 ml 1X ONCE IJ Last administered on 05/04/17 11:22; Start 05/04/17 at 11:00; Stop 05/04/17 at 11:02 ; Status DC Heparin Sodium/ Sodium Chloride 1,000 unit 1X ONCE IV Last administered on 11:23; Start 05/04/17 at 11:00; Stop 05/04/17 at 11:02; Status DC Heparin Sodium (Porcine) (Heparin Sodium) 2,600 unit 1X ONCE INT CAT Last administered on 05/04/17 11:22; Start 05/04/17 at 11:00; Stop 05/04/17 at 11:02 ; Status DC Acetaminophen (Tylenol) 650 mg PRN Q6HRS PRN PO MILD PAIN Last administered on 05/09/17 08:39; Start 05/04/17 at 18:15 Tramadol HCl (Ultram) 50 mg PRN Q6HRS PRN PO PAIN Last administered on 11:12; Start 05/04/17 at 18:15 Morphine Sulfate 2 mg PRN Q4HRS PRN IV PAIN Last administered on 05/08/17 02: 24; Start 05/04/17 at 18:15 Magnesium Sulfate/ Dextrose 50 ml @ 25 mls/hr 1X ONCE IV Last administered on 05/05/17 02:52; Start 05/05/17 at 02:45; Stop 05/05/17 at 04:44; Status DC Albuterol/ Ipratropium (Duoneb) 3 ml RTQID NEB Last administered on 05/10/17 11:22; Start 05/05/17 at 09:30 Amino Acids/ Glycerin/ Electrolytes 1,000 ml @ 80 mls/hr [id number] IV Last administered on 05/08/17 02:14; Start 05/05/17 at 11:30; Stop 05/08/17 at 11:50 ; Status DC Calcium Carbonate/ Glycine (Oscal) 500 mg TIDAFTMEAL PO Last administered on 12:39; Start 05/07/17 at 09:15 Ondansetron HCl (Zofran) 4 mg PRN Q8HRS PRN IV NAUSEA/VOMITING Last administered on 05/09/17 11:12; Start 05/07/17 at 09:15 Al Hydroxide/Mg Hydroxide (Mylanta Plus Xs) 30 ml PRN Q6HRS PRN PO HEARTBURN / GAS Last administered on 05/08/17 02:24; Start 05/07/17 at 09:15 Sucralfate (Carafate) 1 gm QIDACHS PO Last administered on 05/10/17 12:40; Start 05/07/17 at 21:00 Pantoprazole Sodium (Protonix) 40 mg DAILYAC PO Last administered on 05/10/17 08:28; Start 05/08/17 at 11:30 Ringer's Solution 1,000 ml @ 75 mls/hr [id number] IV Last administered on 16:15; Start 05/08/17 at 16:15; Stop 05/09/17 at 12:37; Status DC Midazolam HCl (Versed) 5 mg STK-MED ONCE .ROUTE ; Start 05/08/17 at 17:03; Stop 05/08/17 at 17:04; Status DC Fentanyl Citrate (Fentanyl 2ml Vial) 100 mcg STK-MED ONCE .ROUTE ; Start at 17:03; Stop 05/08/17 at 17:04; Status DC Midazolam HCl (Versed) 5 mg STK-MED ONCE IV Last administered on 05/08/17 17: 14; Start 05/08/17 at 17:14; Stop 05/08/17 at 17:16; Status DC Fentanyl Citrate (Fentanyl 2ml Vial) 100 mcg STK-MED ONCE IV Last administered on 05/08/17 17:16; Start 05/08/17 at 17:16; Stop 05/08/17 at 17:17; Status DC Midazolam HCl (Versed) 5 mg STK-MED ONCE IV Last administered on 05/08/17 17: 18; Start 05/08/17 at 17:18; Stop 05/08/17 at 17:21; Status DC Midazolam HCl (Versed) 5 mg STK-MED ONCE IV Last administered on 05/08/17 17: 24; Start 05/08/17 at 17:24; Stop 05/08/17 at 17:26; Status DC Docusate Sodium (Colace) 100 mg DAILY PO Last administered on 05/10/17 08:27; Start 05/09/17 at 12:15 Polyethylene Glycol (miraLAX PACKET) 17 gm 1X ONCE PO Last administered on 12:53; Start 05/09/17 at 12:15; Stop 05/09/17 at 12:16; Status DC Polyethylene Glycol (miraLAX PACKET) 17 gm DAILY PO Last administered on 08:28; Start 05/10/17 at 09:00 Bisacodyl (Dulcolax Tab) 10 mg PRN DAILY PRN PO CONSTIPATION Last administered on 05/09/17 18:34; Start 05/09/17 at 12:30; Stop 05/10/17 at 10:27; Status DC Amino Acids/ Glycerin/ Electrolytes 1,000 ml @ 80 mls/hr [id number] IV ; Start at 12:45; Stop 05/09/17 at 17:23; Status DC Polyethylene Glycol (miraLAX PACKET) 17 gm 1X ONCE PO ; Start 05/09/17 at 14:00 ; Stop 05/09/17 at 14:01; Status DC Amino Acids/ Glycerin/ Electrolytes 1,000 ml @ 80 mls/hr [id number] IV Last administered on 05/10/17 08:35; Start 05/09/17 at 19:00 Active Scripts Active Vitamin D2 (Ergocalciferol (Vitamin D2)) 50,000 Unit Capsule 50,000 Unit PO WEEKLY Folbic Tablet (Cyanocobalamin/Fa/Pyridoxine) 1 Each Tablet 1 Tab PO DAILY Calcitriol 0.25 Mcg Capsule 0.25 Mcg PO DAILY Reported Flovent 50MCG Diskus (Fluticasone Propionate) 50 Mcg Disk.w.dev 50 Mcg IH BID Imodium A-D (Loperamide Hcl) 1 Mg/7.5 Ml Liquid 2 Mg PO DAILY08 Norvasc (Amlodipine Besylate) 10 Mg Tablet 10 Mg PO DAILY08 Vitals/I & O Vital Sign - Last 24 Hours 05/09/17 05/09/17 05/09/17 05/09/17 15:00 19:00 19:23 20:00 Temp 98.2 98.1 98.2 98.1 Pulse 83 86 Resp 20 18 B/P (MAP) 124/64 (84) 145/82 (103) Pulse Ox 94 95 O2 Delivery Room Air Room Air Room Air Room Air 05/09/17 05/10/17 05/10/17 9/28/17 23:00 03:00 07:27 07:30 Temp 98.4 99.1 99.3 98.4 99.1 99.3 Pulse 76 85 94 Resp 18 18 18 B/P (MAP) 138/73 (94) 135/72 (93) 160/87 (111) Pulse Ox 95 93 94 97 O2 Delivery Room Air Room Air Room Air Room Air 05/10/17 05/10/17 05/10/17 05/10/17 08:00 08:34 10:30 11:23 Temp 98.9 98.9 Pulse 94 93 Resp 18 B/P (MAP) 160/87 165/97 (119) Pulse Ox 94 95 O2 Delivery Room Air Room Air Room Air O2 Flow Rate 2.0 Intake and Output 05/10/17 05/10/17 05/11/17 15:00 23:00 07:00 Intake Total 300 ml Output Total 700 ml Balance -400 ml ALIN MAXWELL MD May 10, 2017 13:56
[2017-05-10 14:30] VITALS: BP 125/68
[2017-05-10 19:00] VITALS: BP 143/69
[2017-05-10] MEDS: traMADol 50 MG TABLET PO PRN (21:12)
[2017-05-10 23:00] VITALS: BP 122/67
[2017-05-11 03:00] VITALS: BP 116/66
[2017-05-11 06:24] LABS: CALCIUM 8.5 mg/dL (8.5-10.1); CREATININE 3.1 mg/dL (0.6-1.0); GFR 14.9; POTASSIUM 4.4 mmol/L (3.5-5.1)
[2017-05-11 07:00] VITALS: BP 152/94
[2017-05-11] MEDS: IPRATRPIUM/ALBUTEROL 0.5/2.5MG 3 ML NEBU. NEB SCH ×3 (08:38→15:16)
[2017-05-11] MEDS: BUDESONIDE 0.5 MG/2 ML NEBU. NEB SCH (08:38)
[2017-05-11] MEDS: POLYETHYLENE GLYCOL 3350 17 GM PACKET. PO SCH (08:48)
[2017-05-11] MEDS: CALCITRIOL 0.25 MCG CAPSULE. PO SCH (08:48)
[2017-05-11] MEDS: CALCIUM CARBONATE 500 MG TABLET PO SCH ×2 (08:48→12:09)
[2017-05-11] MEDS: VITAMIN B12,B9,B6 COMPLEX 1 TABLET. PO SCH (08:48)
[2017-05-11] MEDS: SUCRALFATE 1 GM TABLET. PO SCH ×2 (08:48→12:09)
[2017-05-11] MEDS: amLODIPine BESYLATE 10 MG TABLET PO SCH (08:48)
[2017-05-11] MEDS: DOCUSATE SODIUM 100 MG CAPSULE. PO SCH (08:48)
[2017-05-11] MEDS: PANTOPRAZOLE 40 MG TABLET.DR. PO SCH (08:48)
[2017-05-11] MEDS: AMINO AC 3%/ELECTROLYTE/GLYCER 1,000 ML IV SCH (08:50)
--- NOTE | 2017-05-11 09:24 | PDOC ---
PULMONARY PROGRESS NOTES Subjective PT NO INCREASE SOA Vitals Vital Signs Date Time Temp Pulse Resp B/P (MAP) Pulse Ox O2 Delivery O2 Flow Rate FiO2 05/11/17 08:48 81 152/94 05/11/17 08:40 95 Room Air 05/11/17 07:00 18 05/11/17 03:00 98.2 98.2 05/10/17 08:00 2.0 ROS: No Nausea, No Chest Pain, No Increase Cough General: Alert, No acute distress Lungs: Clear Cardiovascular: S1, S2 Abdomen: Soft, Non-tender Neuro Exam: Alert Extremities: No Edema Skin: Warm Labs Laboratory Tests Test 05/10/17 07:15 05/11/17 05:10 Sodium Level 138 mmol/L (136-145) 141 mmol/L (136-145) Potassium Level 5.1 mmol/L (3.5-5.1) 4.4 mmol/L (3.5-5.1) Chloride Level 103 mmol/L (98-107) 106 mmol/L (98-107) Carbon Dioxide Level 28 mmol/L (21-32) 27 mmol/L (21-32) Anion Gap 7 (6-14) 8 (6-14) Blood Urea Nitrogen 71 mg/dL (7-20) 70 mg/dL (7-20) Creatinine 3.0 mg/dL (0.6-1.0) 3.1 mg/dL (0.6-1.0) Estimated GFR (Cockcroft-Gault) 15.5 14.9 Glucose Level 99 mg/dL (70-99) 94 mg/dL (70-99) Calcium Level 8.9 mg/dL (8.5-10.1) 8.5 mg/dL (8.5-10.1) Phosphorus Level 2.5 mg/dL (2.6-4.7) Albumin 2.8 g/dL (3.4-5.0) Laboratory Tests Test 05/11/17 05:10 Sodium Level 141 mmol/L (136-145) Potassium Level 4.4 mmol/L (3.5-5.1) Chloride Level 106 mmol/L (98-107) Carbon Dioxide Level 27 mmol/L (21-32) Anion Gap 8 (6-14) Blood Urea Nitrogen 70 mg/dL (7-20) Creatinine 3.1 mg/dL (0.6-1.0) Estimated GFR (Cockcroft-Gault) 14.9 Glucose Level 94 mg/dL (70-99) Calcium Level 8.5 mg/dL (8.5-10.1) Medications Active Scripts Medications Dose Route/Sig Max Daily Dose Days Date Category Vitamin D2 (Ergocalciferol (Vitamin D2)) 50,000 Unit Capsule 50,000 Unit PO WEEKLY 12/07/16 Rx Folbic Tablet (Cyanocobalamin/Fa/Pyridoxine) 1 Each Tablet 1 Tab PO DAILY 12/07/16 Rx Calcitriol 0.25 Mcg Capsule 0.25 Mcg PO DAILY 12/07/16 Rx Flovent 50MCG Diskus (Fluticasone Propionate) 50 Mcg Disk.w.dev 50 Mcg IH BID 09/04/13 Reported Imodium A-D (Loperamide Hcl) 1 Mg/7.5 Ml Liquid 2 Mg PO DAILY08 09/04/13 Reported Norvasc (Amlodipine Besylate) 10 Mg Tablet 10 Mg PO DAILY08 09/04/13 Reported Impression . 1. Abnormal arterial blood gases secondary to acute metabolic acidosis with respiratory compensation. 2. Increased anion gap metabolic acidosis 3. History of asthma as a child. 4. Clear chest x-ray. 5. Acute renal failure, 6. Small-bowel obstruction. Plan . RESP STATUS COMPENSATED OK TO D/C FROM MY [facility] FOLLOW UP IN OFFICE IN 4-6 WEEKS LYRIC SMART MD May 11, 2017 09:24
--- NOTE | 2017-05-11 09:48 | PDOC ---
PROGRESS NOTES Chief Complaint Chief Complaint Small-bowel obstruction. 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 acute metabolic gap acidosis Prior Hx of colon cancer. 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 Vital Signs Date Time Temp Pulse Resp B/P (MAP) Pulse Ox O2 Delivery O2 Flow Rate FiO2 05/11/17 08:48 81 152/94 05/11/17 08:40 95 Room Air 05/11/17 07:00 18 05/11/17 03:00 98.2 98.2 05/10/17 08:00 2.0 Physical Exam General: Alert, Oriented X3 Heart: Normal S1, Normal S2 Lungs: Clear Abdomen: Soft, Other (distended, mild tenderness, no guarding or rebound) Extremities: No clubbing, No edema Skin: No rashes Labs LABS Laboratory Tests Test 05/11/17 05:10 Sodium Level 141 mmol/L (136-145) Potassium Level 4.4 mmol/L (3.5-5.1) Chloride Level 106 mmol/L (98-107) Carbon Dioxide Level 27 mmol/L (21-32) Anion Gap 8 (6-14) Blood Urea Nitrogen 70 mg/dL (7-20) Creatinine 3.1 mg/dL (0.6-1.0) Estimated GFR (Cockcroft-Gault) 14.9 Glucose Level 94 mg/dL (70-99) Calcium Level 8.5 mg/dL (8.5-10.1) Assessment and Plan Assessmemt and Plan Problems Medical Problems: (1) Anemia Status: Acute (2) Renal failure Status: Acute Small-bowel obstruction. 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 acute metabolic gap acidosis Prior Hx of colon cancer. Plan Discharge see dictation Problems: Comment Review of Relevant I have reviewed the following items yoel (where applicable) has been applied. Labs Laboratory Tests Test 05/10/17 07:15 05/11/17 05:10 Sodium Level 138 mmol/L (136-145) 141 mmol/L (136-145) Potassium Level 5.1 mmol/L (3.5-5.1) 4.4 mmol/L (3.5-5.1) Chloride Level 103 mmol/L (98-107) 106 mmol/L (98-107) Carbon Dioxide Level 28 mmol/L (21-32) 27 mmol/L (21-32) Anion Gap 7 (6-14) 8 (6-14) Blood Urea Nitrogen 71 mg/dL (7-20) 70 mg/dL (7-20) Creatinine 3.0 mg/dL (0.6-1.0) 3.1 mg/dL (0.6-1.0) Estimated GFR (Cockcroft-Gault) 15.5 14.9 Glucose Level 99 mg/dL (70-99) 94 mg/dL (70-99) Calcium Level 8.9 mg/dL (8.5-10.1) 8.5 mg/dL (8.5-10.1) Phosphorus Level 2.5 mg/dL (2.6-4.7) Albumin 2.8 g/dL (3.4-5.0) Laboratory Tests Test 05/11/17 05:10 Sodium Level 141 mmol/L (136-145) Potassium Level 4.4 mmol/L (3.5-5.1) Chloride Level 106 mmol/L (98-107) Carbon Dioxide Level 27 mmol/L (21-32) Anion Gap 8 (6-14) Blood Urea Nitrogen 70 mg/dL (7-20) Creatinine 3.1 mg/dL (0.6-1.0) Estimated GFR (Cockcroft-Gault) 14.9 Glucose Level 94 mg/dL (70-99) Calcium Level 8.5 mg/dL (8.5-10.1) Microbiology 05/04/17 Urine Culture - Final, Complete 05/04/17 Urine Culture Result 1 (OLAMIDE) - Final, Complete 05/04/17 Antimicrobic Susceptibility - Final, Complete Medications Current Medications Ondansetron HCl (Zofran) 4 mg 1X ONCE IV Last administered on 05/02/17t 23:27 ; Start 05/02/17 at 23:15; Stop 9/20/17 at 23:16; Status DC Multi-Ingredient Mouthwash/Gargle (Gi Cocktail Single Dose) 15 ml 1X ONCE SWSW Last administered on 05/02/17 23:27; Start 05/02/17 at 23:15; Stop 05/02/17 at 23:16; Status DC Sodium Bicarbonate 100 meq 1X ONCE IV Last administered on 05/03/17 01:17; Start 05/03/17 at 01:15; Stop 05/03/17 at 01:16; Status DC Ondansetron HCl (Zofran) 4 mg PRN Q8HRS PRN IV NAUSEA/VOMITING; Start 05/03/17 at 01:15; Stop 05/04/17 at 01:14; Status DC Morphine Sulfate 2 mg PRN Q2HR PRN IV PAIN; Start 05/03/17 at 01:15; Stop 05/04 at 01:14; Status DC Sodium Chloride 1,000 ml @ 125 mls/hr 1X ONCE IV Last administered on 04:45; Start 05/03/17 at 04:30; Stop 05/04/17 at 10:02; Status DC Magnesium Sulfate/ Dextrose 50 ml @ 25 mls/hr PRN DAILY PRN IV for Mag < 1.7 on am labs; Start 05/03/17 at 09:15 Sodium Bicarbonate 75 meq/Sodium Chloride 1,075 ml @ 75 mls/hr [id number] IV Last administered on 05/03/17 17:17; Start 05/03/17 at 10:00; Stop 05/03/17 at 21:50; Status DC Budesonide (Pulmicort) 0.5 mg RTBID NEB Last administered on 05/11/17 08:38; Start 05/03/17 at 12:00 Sodium Chloride 1,000 ml @ 250 mls/hr 1X ONCE IV Last administered on 13:17; Start 05/03/17 at 12:30; Stop 05/03/17 at 16:44; Status DC Amlodipine Besylate (Norvasc) 10 mg DAILY08 PO Last administered on 05/11/17 08:48; Start 05/03/17 at 15:00 Calcitriol (Rocaltrol) 0.25 mcg DAILY PO Last administered on 05/11/17 08:48; Start 05/03/17 at 15:00 Vitamin B Complex (Folbic Tablet) 1 tab DAILY PO Last administered on 08:48; Start 05/03/17 at 15:00 Ergocalciferol (Vitamin D2) 50,000 unit WEEKLY PO Last administered on 08:28; Start 05/10/17 at 09:00 Non-Formulary Medication 50 mcg BID IH ; Start 05/03/17 at 21:00; Stop 05/03/17 at 21:00; Status DC Loperamide HCl (Imodium) 2 mg DAILY08 PO Last administered on 05/05/17 09:30; Start 05/03/17 at 15:00; Stop 05/05/17 at 10:49; Status DC Sodium Chloride 1,000 ml @ 100 mls/hr Q10H IV Last administered on 05/04/17 06:01; Start 05/03/17 at 21:30; Stop 05/04/17 at 07:04; Status DC Sodium Chloride 1,000 ml @ 100 mls/hr Q10H IV Last administered on 05/04/17 07:10; Start 05/04/17 at 07:30; Stop 05/04/17 at 10:02; Status DC Sodium Bicarbonate 75 meq/Potassium Acetate 20 meq/ Dextrose 1,085 ml @ 50 mls/ hr [id number] IV Last administered on 05/08/17 20:36; Start 05/04/17 at 10:00; Stop 05/09/17 at 12:37; Status DC Darbepoetin Jono (Aranesp) 60 mcg WEEKLYHS SQ Last administered on 05/04/17 20 :51; Start 05/04/17 at 21:00 Lidocaine/Sodium Bicarbonate (Buffered Lidocaine 1%) 20 ml STK-MED ONCE IJ ; Start 05/04/17 at 10:23; Stop 05/04/17 at 10:24; Status DC Heparin Sodium (Porcine) (Heparin Sodium) 10,000 unit STK-MED ONCE .ROUTE ; Start 05/04/17 at 10:23; Stop 05/04/17 at 10:24; Status DC Heparin Sodium/ Sodium Chloride 500 ml @ As Directed STK-MED ONCE .ROUTE ; Start 05/04/17 at 10:23; Stop 05/04/17 at 10:24; Status DC Lidocaine/Sodium Bicarbonate (Buffered Lidocaine 1%) 20 ml 1X ONCE IJ Last administered on 05/04/17 11:22; Start 05/04/17 at 11:00; Stop 05/04/17 at 11:02 ; Status DC Heparin Sodium/ Sodium Chloride 1,000 unit 1X ONCE IV Last administered on 11:23; Start 05/04/17 at 11:00; Stop 05/04/17 at 11:02; Status DC Heparin Sodium (Porcine) (Heparin Sodium) 2,600 unit 1X ONCE INT CAT Last administered on 05/04/17 11:22; Start 05/04/17 at 11:00; Stop 05/04/17 at 11:02 ; Status DC Acetaminophen (Tylenol) 650 mg PRN Q6HRS PRN PO MILD PAIN Last administered on 05/09/17 08:39; Start 05/04/17 at 18:15 Tramadol HCl (Ultram) 50 mg PRN Q6HRS PRN PO PAIN Last administered on 21:12; Start 05/04/17 at 18:15 Morphine Sulfate 2 mg PRN Q4HRS PRN IV PAIN Last administered on 05/08/17 02: 24; Start 05/04/17 at 18:15 Magnesium Sulfate/ Dextrose 50 ml @ 25 mls/hr 1X ONCE IV Last administered on 05/05/17 02:52; Start 05/05/17 at 02:45; Stop 05/05/17 at 04:44; Status DC Albuterol/ Ipratropium (Duoneb) 3 ml RTQID NEB Last administered on 05/11/17 08:38; Start 05/05/17 at 09:30 Amino Acids/ Glycerin/ Electrolytes 1,000 ml @ 80 mls/hr [id number] IV Last administered on 05/08/17 02:14; Start 05/05/17 at 11:30; Stop 05/08/17 at 11:50 ; Status DC Calcium Carbonate/ Glycine (Oscal) 500 mg TIDAFTMEAL PO Last administered on 08:48; Start 05/07/17 at 09:15 Ondansetron HCl (Zofran) 4 mg PRN Q8HRS PRN IV NAUSEA/VOMITING Last administered on 05/09/17 11:12; Start 05/07/17 at 09:15 Al Hydroxide/Mg Hydroxide (Mylanta Plus Xs) 30 ml PRN Q6HRS PRN PO HEARTBURN / GAS Last administered on 05/08/17 02:24; Start 05/07/17 at 09:15 Sucralfate (Carafate) 1 gm QIDACHS PO Last administered on 05/11/17 08:48; Start 05/07/17 at 21:00 Pantoprazole Sodium (Protonix) 40 mg DAILYAC PO Last administered on 05/11/17 08:48; Start 05/08/17 at 11:30 Ringer's Solution 1,000 ml @ 75 mls/hr [id number] IV Last administered on 16:15; Start 05/08/17 at 16:15; Stop 05/09/17 at 12:37; Status DC Midazolam HCl (Versed) 5 mg STK-MED ONCE .ROUTE ; Start 05/08/17 at 17:03; Stop 05/08/17 at 17:04; Status DC Fentanyl Citrate (Fentanyl 2ml Vial) 100 mcg STK-MED ONCE .ROUTE ; Start at 17:03; Stop 05/08/17 at 17:04; Status DC Midazolam HCl (Versed) 5 mg STK-MED ONCE IV Last administered on 05/08/17 17: 14; Start 05/08/17 at 17:14; Stop 05/08/17 at 17:16; Status DC Fentanyl Citrate (Fentanyl 2ml Vial) 100 mcg STK-MED ONCE IV Last administered on 05/08/17 17:16; Start 05/08/17 at 17:16; Stop 05/08/17 at 17:17; Status DC Midazolam HCl (Versed) 5 mg STK-MED ONCE IV Last administered on 05/08/17 17: 18; Start 05/08/17 at 17:18; Stop 05/08/17 at 17:21; Status DC Midazolam HCl (Versed) 5 mg STK-MED ONCE IV Last administered on 05/08/17 17: 24; Start 05/08/17 at 17:24; Stop 05/08/17 at 17:26; Status DC Docusate Sodium (Colace) 100 mg DAILY PO Last administered on 05/11/17 08:48; Start 05/09/17 at 12:15 Polyethylene Glycol (miraLAX PACKET) 17 gm 1X ONCE PO Last administered on 12:53; Start 05/09/17 at 12:15; Stop 05/09/17 at 12:16; Status DC Polyethylene Glycol (miraLAX PACKET) 17 gm DAILY PO Last administered on 08:48; Start 05/10/17 at 09:00 Bisacodyl (Dulcolax Tab) 10 mg PRN DAILY PRN PO CONSTIPATION Last administered on 05/09/17 18:34; Start 05/09/17 at 12:30; Stop 05/10/17 at 10:27; Status DC Amino Acids/ Glycerin/ Electrolytes 1,000 ml @ 80 mls/hr [id number] IV ; Start at 12:45; Stop 05/09/17 at 17:23; Status DC Polyethylene Glycol (miraLAX PACKET) 17 gm 1X ONCE PO ; Start 05/09/17 at 14:00 ; Stop 05/09/17 at 14:01; Status DC Amino Acids/ Glycerin/ Electrolytes 1,000 ml @ 80 mls/hr [id number] IV Last administered on 05/11/17 08:50; Start 05/09/17 at 19:00 Active Scripts Active Vitamin D2 (Ergocalciferol (Vitamin D2)) 50,000 Unit Capsule 50,000 Unit PO WEEKLY Folbic Tablet (Cyanocobalamin/Fa/Pyridoxine) 1 Each Tablet 1 Tab PO DAILY Calcitriol 0.25 Mcg Capsule 0.25 Mcg PO DAILY Reported Flovent 50MCG Diskus (Fluticasone Propionate) 50 Mcg Disk.w.dev 50 Mcg IH BID Imodium A-D (Loperamide Hcl) 1 Mg/7.5 Ml Liquid 2 Mg PO DAILY08 Norvasc (Amlodipine Besylate) 10 Mg Tablet 10 Mg PO DAILY08 Vitals/I & O Vital Sign - Last 24 Hours 05/10/17 05/10/17 05/10/17 05/10/17 10:30 11:23 14:30 15:15 Temp 98.9 99.2 98.9 99.2 Pulse 93 92 Resp 18 18 B/P (MAP) 165/97 (119) 125/68 (87) Pulse Ox 94 95 95 95 O2 Delivery Room Air Room Air Room Air Room Air 05/10/17 05/10/17 05/10/17 05/10/17 19:00 19:33 20:00 21:12 Temp 98.1 98.1 Pulse 88 Resp 18 B/P (MAP) 143/69 (93) Pulse Ox 93 O2 Delivery Room Air Room Air Room Air Room Air 05/10/17 05/11/17 05/11/17 05/11/17 23:00 03:00 07:00 08:39 Temp 97.9 98.2 97.9 98.2 Pulse 83 77 81 Resp 18 18 18 B/P (MAP) 122/67 (85) 116/66 (83) 152/94 (113) Pulse Ox 96 95 99 95 O2 Delivery Room Air Room Air Room Air Room Air 05/11/17 05/11/17 08:40 08:48 Pulse 81 B/P (MAP) 152/94 Pulse Ox 95 O2 Delivery Room Air ALICIA FLORENCE III DO May 11, 2017 09:48
--- NOTE | 2017-05-11 10:12 | PDOC ---
Subjective: Subjective: Stooling, eating well. Objective: Objective: D/w Dr. Fernandez - possible DC today. Vital Signs: Vital Signs Date Time Temp Pulse Resp B/P (MAP) Pulse Ox O2 Delivery O2 Flow Rate FiO2 05/11/17 08:48 81 152/94 05/11/17 08:40 95 Room Air 05/11/17 08:00 2.0 05/11/17 07:00 18 05/11/17 03:00 98.2 98.2 Labs: Laboratory Tests Test 05/11/17 05:10 Sodium Level 141 mmol/L Potassium Level 4.4 mmol/L Chloride Level 106 mmol/L Carbon Dioxide Level 27 mmol/L Anion Gap 8 Blood Urea Nitrogen 70 mg/dL Creatinine 3.1 mg/dL Estimated GFR (Cockcroft-Gault) 14.9 Glucose Level 94 mg/dL Calcium Level 8.5 mg/dL PE: GEN: NAD LUNGS: CTAB HEART: RRR ABD: protuberant hernia, non-tender, BS+ NEURO/PSYCH: A & O 3 A/P: H/o colon cancer w/ elevated CEA -diagnosed in 2004 at (no records available to review), s/p resection, no colonoscopy since -chronic anemia w/ CKD and B12 deficiency ---> EGD w/ non-erosive gastritis, on PPI SBO (resolved), constipation (resolved) -multiple abd surgeries -on Miralax -hernia her surgery -- DC per primary. Outpt colonoscopy - our office will arrange. GRISELDA EVANS May 11, 2017 10:12
[2017-05-11 11:00] VITALS: BP 133/76
--- NOTE | 2017-05-11 12:19 | PDOC ---
PROGRESS NOTES Subjective Subjective c/c - f/u of SBO ROS - no pain Objective Objective Vital Signs Date Time Temp Pulse Resp B/P (MAP) Pulse Ox O2 Delivery O2 Flow Rate FiO2 05/11/17 11:56 96 Room Air 05/11/17 11:00 98.4 85 18 133/76 (95) 98.4 05/11/17 08:00 2.0 Physical Exam General: Alert, Oriented X3, No acute distress Neuro: Normal speech Assessment Assessment Problems Medical Problems: (1) Anemia Status: Acute (2) Renal failure Status: Acute IMPRESSION AND PLAN: 1. Small-bowel obstruction. Appreciate surgical consultation and management. 2. Anemia due to CKD. She has history of B12 deficiency. B12 levels are now normal. Agree to monitor Hb and transfuse as needed. Agree with aranesp. Hb now 7.8. 3. Thrombocytopenia. Reactive, B12 is now normal. h/o pancytopenia due to B12 def in past - bone marrow bx 08/06/16: Path report: The constellation of peripheral blood, bone marrow, and clinical laboratory findings are compatible with B12 deficiency. Plt 95. 4. Colon cancer in the past per pt. I obtained pathology records from [facility] since 1999 and there is no evidence of cancer. She had mentioned that the surgery was done at [facility] for cancer. She now mentions that it was done at . I will obtain records. CT scan does not reveal any evidence of recurrent colon cancer. CEA elevated 6.3 on 05/04/17, consulted GI. EGD 05/08/17 reveals non-erosive gastritis. I d/w Dr Riddle. CT chest 05/09/17 is neg for mets.. Comment Review of Relevant I have reviewed the following items yoel (where applicable) has been applied. Labs Laboratory Tests Test 05/10/17 07:15 05/11/17 05:10 Sodium Level 138 mmol/L (136-145) 141 mmol/L (136-145) Potassium Level 5.1 mmol/L (3.5-5.1) 4.4 mmol/L (3.5-5.1) Chloride Level 103 mmol/L (98-107) 106 mmol/L (98-107) Carbon Dioxide Level 28 mmol/L (21-32) 27 mmol/L (21-32) Anion Gap 7 (6-14) 8 (6-14) Blood Urea Nitrogen 71 mg/dL (7-20) 70 mg/dL (7-20) Creatinine 3.0 mg/dL (0.6-1.0) 3.1 mg/dL (0.6-1.0) Estimated GFR (Cockcroft-Gault) 15.5 14.9 Glucose Level 99 mg/dL (70-99) 94 mg/dL (70-99) Calcium Level 8.9 mg/dL (8.5-10.1) 8.5 mg/dL (8.5-10.1) Phosphorus Level 2.5 mg/dL (2.6-4.7) Albumin 2.8 g/dL (3.4-5.0) Laboratory Tests Test 05/11/17 05:10 Sodium Level 141 mmol/L (136-145) Potassium Level 4.4 mmol/L (3.5-5.1) Chloride Level 106 mmol/L (98-107) Carbon Dioxide Level 27 mmol/L (21-32) Anion Gap 8 (6-14) Blood Urea Nitrogen 70 mg/dL (7-20) Creatinine 3.1 mg/dL (0.6-1.0) Estimated GFR (Cockcroft-Gault) 14.9 Glucose Level 94 mg/dL (70-99) Calcium Level 8.5 mg/dL (8.5-10.1) Microbiology 05/04/17 Urine Culture - Final, Complete 05/04/17 Urine Culture Result 1 (OLAMIDE) - Final, Complete 05/04/17 Antimicrobic Susceptibility - Final, Complete Medications Current Medications Ondansetron HCl (Zofran) 4 mg 1X ONCE IV Last administered on 05/02/17 23:27 ; Start 05/02/17 at 23:15; Stop 05/02/17 at 23:16; Status DC Multi-Ingredient Mouthwash/Gargle (Gi Cocktail Single Dose) 15 ml 1X ONCE SWSW Last administered on 05/02/17 23:27; Start 05/02/17 at 23:15; Stop 05/02/17 at 23:16; Status DC Sodium Bicarbonate 100 meq 1X ONCE IV Last administered on 05/03/17 01:17; Start 05/03/17 at 01:15; Stop 05/03/17 at 01:16; Status DC Ondansetron HCl (Zofran) 4 mg PRN Q8HRS PRN IV NAUSEA/VOMITING; Start 05/03/17 at 01:15; Stop 05/04/17 at 01:14; Status DC Morphine Sulfate 2 mg PRN Q2HR PRN IV PAIN; Start 05/03/17 at 01:15; Stop 05/04 at 01:14; Status DC Sodium Chloride 1,000 ml @ 125 mls/hr 1X ONCE IV Last administered on 04:45; Start 05/03/17 at 04:30; Stop 05/04/17 at 10:02; Status DC Magnesium Sulfate/ Dextrose 50 ml @ 25 mls/hr PRN DAILY PRN IV for Mag < 1.7 on am labs; Start 05/03/17 at 09:15 Sodium Bicarbonate 75 meq/Sodium Chloride 1,075 ml @ 75 mls/hr [id number] IV Last administered on 05/03/17 17:17; Start 05/03/17 at 10:00; Stop 05/03/17 at 21:50; Status DC Budesonide (Pulmicort) 0.5 mg RTBID NEB Last administered on 05/11/17 08:38; Start 05/03/17 at 12:00 Sodium Chloride 1,000 ml @ 250 mls/hr 1X ONCE IV Last administered on 13:17; Start 05/03/17 at 12:30; Stop 05/03/17 at 16:44; Status DC Amlodipine Besylate (Norvasc) 10 mg DAILY08 PO Last administered on 05/11/17 08:48; Start 05/03/17 at 15:00 Calcitriol (Rocaltrol) 0.25 mcg DAILY PO Last administered on 05/11/17 08:48; Start 05/03/17 at 15:00 Vitamin B Complex (Folbic Tablet) 1 tab DAILY PO Last administered on 08:48; Start 05/03/17 at 15:00 Ergocalciferol (Vitamin D2) 50,000 unit WEEKLY PO Last administered on 08:28; Start 05/10/17 at 09:00 Non-Formulary Medication 50 mcg BID IH ; Start 05/03/17 at 21:00; Stop 05/03/17 at 21:00; Status DC Loperamide HCl (Imodium) 2 mg DAILY08 PO Last administered on 05/05/17 09:30; Start 05/03/17 at 15:00; Stop 05/05/17 at 10:49; Status DC Sodium Chloride 1,000 ml @ 100 mls/hr Q10H IV Last administered on 05/04/17 06:01; Start 05/03/17 at 21:30; Stop 05/04/17 at 07:04; Status DC Sodium Chloride 1,000 ml @ 100 mls/hr Q10H IV Last administered on 05/04/17 07:10; Start 05/04/17 at 07:30; Stop 05/04/17 at 10:02; Status DC Sodium Bicarbonate 75 meq/Potassium Acetate 20 meq/ Dextrose 1,085 ml @ 50 mls/ hr [id number] IV Last administered on 05/08/17 20:36; Start 05/04/17 at 10:00; Stop 05/09/17 at 12:37; Status DC Darbepoetin Jono (Aranesp) 60 mcg WEEKLYHS SQ Last administered on 05/04/17 20 :51; Start 05/04/17 at 21:00 Lidocaine/Sodium Bicarbonate (Buffered Lidocaine 1%) 20 ml STK-MED ONCE IJ ; Start 05/04/17 at 10:23; Stop 05/04/17 at 10:24; Status DC Heparin Sodium (Porcine) (Heparin Sodium) 10,000 unit STK-MED ONCE .ROUTE ; Start 05/04/17 at 10:23; Stop 05/04/17 at 10:24; Status DC Heparin Sodium/ Sodium Chloride 500 ml @ As Directed STK-MED ONCE .ROUTE ; Start 05/04/17 at 10:23; Stop 05/04/17 at 10:24; Status DC Lidocaine/Sodium Bicarbonate (Buffered Lidocaine 1%) 20 ml 1X ONCE IJ Last administered on 05/04/17 11:22; Start 05/04/17 at 11:00; Stop 05/04/17 at 11:02 ; Status DC Heparin Sodium/ Sodium Chloride 1,000 unit 1X ONCE IV Last administered on 11:23; Start 05/04/17 at 11:00; Stop 05/04/17 at 11:02; Status DC Heparin Sodium (Porcine) (Heparin Sodium) 2,600 unit 1X ONCE INT CAT Last administered on 05/04/17 11:22; Start 05/04/17 at 11:00; Stop 05/04/17 at 11:02 ; Status DC Acetaminophen (Tylenol) 650 mg PRN Q6HRS PRN PO MILD PAIN Last administered on 05/09/17 08:39; Start 05/04/17 at 18:15 Tramadol HCl (Ultram) 50 mg PRN Q6HRS PRN PO PAIN Last administered on 21:12; Start 05/04/17 at 18:15 Morphine Sulfate 2 mg PRN Q4HRS PRN IV PAIN Last administered on 05/08/17 02: 24; Start 05/04/17 at 18:15 Magnesium Sulfate/ Dextrose 50 ml @ 25 mls/hr 1X ONCE IV Last administered on 05/05/17 02:52; Start 05/05/17 at 02:45; Stop 05/05/17 at 04:44; Status DC Albuterol/ Ipratropium (Duoneb) 3 ml RTQID NEB Last administered on 05/11/17 11:55; Start 05/05/17 at 09:30 Amino Acids/ Glycerin/ Electrolytes 1,000 ml @ 80 mls/hr [id number] IV Last administered on 05/08/17 02:14; Start 05/05/17 at 11:30; Stop 05/08/17 at 11:50 ; Status DC Calcium Carbonate/ Glycine (Oscal) 500 mg TIDAFTMEAL PO Last administered on 12:09; Start 05/07/17 at 09:15 Ondansetron HCl (Zofran) 4 mg PRN Q8HRS PRN IV NAUSEA/VOMITING Last administered on 05/09/17 11:12; Start 05/07/17 at 09:15 Al Hydroxide/Mg Hydroxide (Mylanta Plus Xs) 30 ml PRN Q6HRS PRN PO HEARTBURN / GAS Last administered on 05/08/17 02:24; Start 05/07/17 at 09:15 Sucralfate (Carafate) 1 gm QIDACHS PO Last administered on 05/11/17 12:09; Start 05/07/17 at 21:00 Pantoprazole Sodium (Protonix) 40 mg DAILYAC PO Last administered on 05/11/17 08:48; Start 05/08/17 at 11:30 Ringer's Solution 1,000 ml @ 75 mls/hr [id number] IV Last administered on 16:15; Start 05/08/17 at 16:15; Stop 05/09/17 at 12:37; Status DC Midazolam HCl (Versed) 5 mg STK-MED ONCE .ROUTE ; Start 05/08/17 at 17:03; Stop 05/08/17 at 17:04; Status DC Fentanyl Citrate (Fentanyl 2ml Vial) 100 mcg STK-MED ONCE .ROUTE ; Start at 17:03; Stop 05/08/17 at 17:04; Status DC Midazolam HCl (Versed) 5 mg STK-MED ONCE IV Last administered on 05/08/17 17: 14; Start 05/08/17 at 17:14; Stop 05/08/17 at 17:16; Status DC Fentanyl Citrate (Fentanyl 2ml Vial) 100 mcg STK-MED ONCE IV Last administered on 05/08/17 17:16; Start 05/08/17 at 17:16; Stop 05/08/17 at 17:17; Status DC Midazolam HCl (Versed) 5 mg STK-MED ONCE IV Last administered on 05/08/17 17: 18; Start 05/08/17 at 17:18; Stop 05/08/17 at 17:21; Status DC Midazolam HCl (Versed) 5 mg STK-MED ONCE IV Last administered on 05/08/17 17: 24; Start 05/08/17 at 17:24; Stop 05/08/17 at 17:26; Status DC Docusate Sodium (Colace) 100 mg DAILY PO Last administered on 05/11/17 08:48; Start 05/09/17 at 12:15 Polyethylene Glycol (miraLAX PACKET) 17 gm 1X ONCE PO Last administered on 12:53; Start 05/09/17 at 12:15; Stop 05/09/17 at 12:16; Status DC Polyethylene Glycol (miraLAX PACKET) 17 gm DAILY PO Last administered on 08:48; Start 05/10/17 at 09:00 Bisacodyl (Dulcolax Tab) 10 mg PRN DAILY PRN PO CONSTIPATION Last administered on 05/09/17 18:34; Start 05/09/17 at 12:30; Stop 05/10/17 at 10:27; Status DC Amino Acids/ Glycerin/ Electrolytes 1,000 ml @ 80 mls/hr [id number] IV ; Start at 12:45; Stop 05/09/17 at 17:23; Status DC Polyethylene Glycol (miraLAX PACKET) 17 gm 1X ONCE PO ; Start 05/09/17 at 14:00 ; Stop 05/09/17 at 14:01; Status DC Amino Acids/ Glycerin/ Electrolytes 1,000 ml @ 80 mls/hr [id number] IV Last administered on 05/11/17 08:50; Start 05/09/17 at 19:00 Active Scripts Active Vitamin D2 (Ergocalciferol (Vitamin D2)) 50,000 Unit Capsule 50,000 Unit PO WEEKLY Folbic Tablet (Cyanocobalamin/Fa/Pyridoxine) 1 Each Tablet 1 Tab PO DAILY Calcitriol 0.25 Mcg Capsule 0.25 Mcg PO DAILY Reported Flovent 50MCG Diskus (Fluticasone Propionate) 50 Mcg Disk.w.dev 50 Mcg IH BID Imodium A-D (Loperamide Hcl) 1 Mg/7.5 Ml Liquid 2 Mg PO DAILY08 Norvasc (Amlodipine Besylate) 10 Mg Tablet 10 Mg PO DAILY08 Vitals/I & O Vital Sign - Last 24 Hours 05/10/17 05/10/17 05/10/17 05/10/17 14:30 15:15 19:00 19:33 Temp 99.2 98.1 99.2 98.1 Pulse 92 88 Resp 18 18 B/P (MAP) 125/68 (87) 143/69 (93) Pulse Ox 95 95 93 O2 Delivery Room Air Room Air Room Air Room Air 05/10/17 05/10/17 05/10/17 05/11/17 20:00 21:12 23:00 03:00 Temp 97.9 98.2 97.9 98.2 Pulse 83 77 Resp 18 18 B/P (MAP) 122/67 (85) 116/66 (83) Pulse Ox 96 95 O2 Delivery Room Air Room Air Room Air Room Air 05/11/17 05/11/17 05/11/17 05/11/17 07:00 08:00 08:39 08:40 Pulse 81 Resp 18 B/P (MAP) 152/94 (113) Pulse Ox 99 95 95 O2 Delivery Room Air Room Air Room Air Room Air O2 Flow Rate 2.0 05/11/17 05/11/17 05/11/17 08:48 11:00 11:56 Temp 98.4 98.4 Pulse 81 85 Resp 18 B/P (MAP) 152/94 133/76 (95) Pulse Ox 96 96 O2 Delivery Room Air Room Air ALIN MAXWELL MD May 11, 2017 12:19
--- NOTE | 2017-05-11 12:30 | PDOC ---
Renal-Progress Notes Subjective Notes Notes FEELS WELL History of Present Illness Hx of present illness BETTER Vitals Vitals Vital Signs Date Time Temp Pulse Resp B/P (MAP) Pulse Ox O2 Delivery O2 Flow Rate FiO2 05/11/17 11:56 96 Room Air 05/11/17 11:00 98.4 85 18 133/76 (95) 98.4 05/11/17 08:00 2.0 Weight Weight [ ] Labs Labs Laboratory Tests Test 05/11/17 05:10 Sodium Level 141 mmol/L (136-145) Potassium Level 4.4 mmol/L (3.5-5.1) Chloride Level 106 mmol/L (98-107) Carbon Dioxide Level 27 mmol/L (21-32) Anion Gap 8 (6-14) Blood Urea Nitrogen 70 mg/dL (7-20) Creatinine 3.1 mg/dL (0.6-1.0) Estimated GFR (Cockcroft-Gault) 14.9 Glucose Level 94 mg/dL (70-99) Calcium Level 8.5 mg/dL (8.5-10.1) Micro Micro Microbiology 05/04/17 Urine Culture - Final, Complete 05/04/17 Urine Culture Result 1 (OLAMIDE) - Final, Complete 05/04/17 Antimicrobic Susceptibility - Final, Complete Review of Systems Constitutional: yes: malaise, weakness, alert, oriented Ears/Nose/Throat: Yes: no symptom reported Eyes: Yes: no symptom reported Cardiovascular: Yes no symptom reported Gastrointestional: Yes: nausea Genitourinary: Yes: no symptom reported Musculoskeletal: Yes: muscle stiffness Skin: Yes no symptom reported Psychiatric/Neurological: Yes: no symptom reported Endocrine: Yes: no symptom reported Hematologic/Lymphatic: Yes: no symptom reported Physical Exam General Appearance: no apparent distress Skin: warm Respiratory: decreased breath sounds Heart: S1S2, RRR Abdomen: soft, other (HYPOACTIVE) Extremities: pulses present, no edema Neurology: alert Assessment Assessment IMP CKD 4 WITH CR OF ABOUT 2.5 AT BASELINE [place] WITH NOW NEAR BASELINE-3.0 ANEMIA SBO VS ILEUS HX COLON CA WITH RESECTION PLAN STOP PPN OP F/U WITH MY PARTNER DR MONTANO AT DISCHARGE LIONEL BRAGA MD May 11, 2017 12:30
--- NOTE | 2017-05-11 14:30 | PDOC ---
SURGICAL PROGRESS NOTE Subjective tolerating diet ambulating + stools Vital Signs Vital Signs Date Time Temp Pulse Resp B/P (MAP) Pulse Ox O2 Delivery O2 Flow Rate FiO2 05/11/17 11:56 96 Room Air 05/11/17 11:00 98.4 85 18 133/76 (95) 98.4 05/11/17 08:00 2.0 General: Alert, Oriented X3, Cooperative, No acute distress Abdomen: Soft, No tenderness Labs Laboratory Tests Test 05/10/17 07:15 05/11/17 05:10 Sodium Level 138 mmol/L (136-145) 141 mmol/L (136-145) Potassium Level 5.1 mmol/L (3.5-5.1) 4.4 mmol/L (3.5-5.1) Chloride Level 103 mmol/L (98-107) 106 mmol/L (98-107) Carbon Dioxide Level 28 mmol/L (21-32) 27 mmol/L (21-32) Anion Gap 7 (6-14) 8 (6-14) Blood Urea Nitrogen 71 mg/dL (7-20) 70 mg/dL (7-20) Creatinine 3.0 mg/dL (0.6-1.0) 3.1 mg/dL (0.6-1.0) Estimated GFR (Cockcroft-Gault) 15.5 14.9 Glucose Level 99 mg/dL (70-99) 94 mg/dL (70-99) Calcium Level 8.9 mg/dL (8.5-10.1) 8.5 mg/dL (8.5-10.1) Phosphorus Level 2.5 mg/dL (2.6-4.7) Albumin 2.8 g/dL (3.4-5.0) Laboratory Tests Test 05/11/17 05:10 Sodium Level 141 mmol/L (136-145) Potassium Level 4.4 mmol/L (3.5-5.1) Chloride Level 106 mmol/L (98-107) Carbon Dioxide Level 27 mmol/L (21-32) Anion Gap 8 (6-14) Blood Urea Nitrogen 70 mg/dL (7-20) Creatinine 3.1 mg/dL (0.6-1.0) Estimated GFR (Cockcroft-Gault) 14.9 Glucose Level 94 mg/dL (70-99) Calcium Level 8.5 mg/dL (8.5-10.1) Problem List Problems Medical Problems: (1) Anemia Status: Acute (2) Renal failure Status: Acute Assessment/Plan improving dc home Problems: SABRINA SOLER APRN May 11, 2017 14:30
== END 2017-05-11 15:50 | disposition home or self-care (01) | DRG 388 ==
LOC: ER 21:49 → 1 WEST ICU 05-03 01:00 → 5 NORTH 05-03 12:51
PROVIDERS: ADMIT Internal Medicine; ATTEND Internal Medicine
PROC: 30233N1 Transfusion of Nonautologous Red Blood Cells into Peripheral Vein, Percutaneous Approach (ICD-10-PCS; principal; 2017-05-04)
PROC: 0DJ08ZZ Inspection of Upper Intestinal Tract, Via Natural or Artificial Opening Endoscopic (ICD-10-PCS; 2017-05-08)
PROC: 02H633Z Insertion of Infusion Device into Right Atrium, Percutaneous Approach (ICD-10-PCS; 2017-05-08)
PROC: B2141ZZ Fluoroscopy of Right Heart using Low Osmolar Contrast (ICD-10-PCS; 2017-05-08)
DX: K56.60 Unspecified intestinal obstruction (principal); N17.0 Acute kidney failure with tubular necrosis; E87.2 Acidosis; D61.818 Other pancytopenia; N18.4 Chronic kidney disease, stage 4 (severe); K29.70 Gastritis, unspecified, without bleeding; E86.0 Dehydration; D50.9 Iron deficiency anemia, unspecified; D63.1 Anemia in chronic kidney disease; G47.30 Sleep apnea, unspecified; I12.9 Hypertensive chronic kidney disease with stage 1 through stage 4 chronic kidney disease, or unspecified chronic kidney disease; K43.2 Incisional hernia without obstruction or gangrene; I51.7 Cardiomegaly; I70.0 Atherosclerosis of aorta; J45.909 Unspecified asthma, uncomplicated; K21.9 Gastro-esophageal reflux disease without esophagitis; K56.7 Ileus, unspecified; M19.90 Unspecified osteoarthritis, unspecified site; R34 Anuria and oliguria; T39.395A Adverse effect of other nonsteroidal anti-inflammatory drugs [NSAID], initial encounter; Z82.49 Family history of ischemic heart disease and other diseases of the circulatory system; Z85.038 Personal history of other malignant neoplasm of large intestine; Z87.440 Personal history of urinary (tract) infections; Z87.442 Personal history of urinary calculi; Z90.49 Acquired absence of other specified parts of digestive tract; Z90.710 Acquired absence of both cervix and uterus; Z88.0 Allergy status to penicillin
CPT/HCPCS: 36415; 36556; 36600; 71020; 71250; 74020; 74176; 76937; 77001; 80048; 80053; 80069; 81001; 82378; 82570; 82607; 82728; 82746; 82805; 82962; 83540; 83550; 83605; 83690; 83735; 84100; 84156; 84300; 85025; 85045; 86850; 86900; 86901; 86902; 86922; 87086; 87186; 87641; 93970; 94250; 94640; 94760; 96374; A4215; C1892; J0881; J1644; J2250; J2270; J2405; J3010; J7030; J7060; J7120; J7620; J7626; P9016; 99291-25

== ENCOUNTER 2017-06-04 15:02 | Inpatient (IN) | payer OTHER, MEDICAID ==
[~2017-06-04] VITALS: Ht 154.9 cm; Wt 64.4 kg
--- NOTE | 2017-06-04 15:28 | PHYS DOC ---
Past Medical History Past Medical History: Cancer, Hypertension, Other Additional Past Medical Histor: intestinal cancer,BLOOD TRANSFUSION, UMBILICAL HERNIA Past Surgical History: Appendectomy, Hysterectomy, Other Additional Past Surgical Histo: "intestines removed", HERNIA REPAIR Alcohol Use: Occasionally Drug Use: None Adult General Chief Complaint Chief Complaint: ALTERED MENTAL STATUS HPI HPI Patient is a 67 year old female who presents to the emergency department for evaluation of altered mental status. The patient's symptoms have been noticed by the daughter over the past 2-3 days. The patient has history of dementia and normally this high functioning and lives on her own, however over the past several months she has had episodes of increased confusion and has had associated UTI with previous episodes. The patient has been having difficulty identifying where she has and also has not been eating or drinking anything per daughter. The patient currently denies any complaints when asked but is oriented to person only. The patient has become very confused, prompting the daughter to take care of the patient at this time. The daughter had the patient brought to the emergency department by EMS for evaluation. She states that she is currently unable to care for the patient and her current state. Review of Systems Review of Systems Caveat: Patient demented, oriented to person only Constitutional: Denies fever or chills [] Eyes: Denies change in visual acuity, redness, or eye pain [] HENT: Denies nasal congestion or sore throat [] Respiratory: Denies cough or shortness of breath [] Cardiovascular: Denies chest pain or edema[] GI: Denies abdominal pain, nausea, vomiting, bloody stools or diarrhea [] : Denies dysuria or hematuria [] Musculoskeletal: Denies back pain or joint pain [] Integument: Denies rash or skin lesions [] Neurologic: Denies headache, focal weakness or sensory changes [] Current Medications Current Medications Current Medications Medications (Trade) Dose Ordered Sig/Rebecca Start Time Stop Time Status Last Admin Dose Admin Sodium Chloride 500 ml @ 500 mls/hr 1X ONCE 06/04/17 16:00 06/04/17 16:59 DC 06/04/17 16:18 500 MLS/HR Allergies Allergies Allergies Coded Allergies Type Severity Reaction Last Updated Verified Penicillins Allergy Intermediate rash 09/05/13 Yes Physical Exam Physical Exam Constitutional: Alert, afebrile, vital signs stable, no acute distress. [] HENT: Normocephalic, atraumatic, bilateral external ears normal, oropharynx dry , no oral exudates, nose normal. [] Eyes: PERRLA, EOMI, conjunctiva normal, no discharge. [] Neck: Normal range of motion, no tenderness, supple, no stridor. [] Cardiovascular:Heart rate regular rhythm, no murmur [] Lungs & Thorax: Bilateral breath sounds clear to auscultation [] Abdomen: Bowel sounds normal, soft, no tenderness, no masses, no pulsatile masses. [] Skin: Warm, dry, no erythema, no rash. [] Back: No tenderness, no CVA tenderness. [] Extremities: No tenderness, no cyanosis, no clubbing, ROM intact, no edema. [] Neurologic: Alert, oriented to person only, normal motor function, normal sensory function, no focal deficits noted. [] Current Patient Data Vital Signs Vital Signs Date Time Temp Pulse Resp B/P (MAP) Pulse Ox O2 Delivery O2 Flow Rate FiO2 06/04/17 15:02 98.2 80 20 156/64 (94) 100 Room Air 98.2 Lab Values Laboratory Tests Test 06/04/17 15:13 White Blood Count 6.2 x10^3/uL (4.0-11.0) Red Blood Count 3.43 x10^6/uL (3.50-5.40) L Hemoglobin 9.7 g/dL (12.0-15.5) L Hematocrit 31.2 % (36.0-47.0) L Mean Corpuscular Volume 91 fL (79-100) Mean Corpuscular Hemoglobin 28 pg (25-35) Mean Corpuscular Hemoglobin Concent 31 g/dL (31-37) Red Cell Distribution Width 15.9 % (11.5-14.5) H Platelet Count 109 x10^3/uL (140-400) L Neutrophils (%) (Auto) 69 % (31-73) Lymphocytes (%) (Auto) 21 % (24-48) L Monocytes (%) (Auto) 10 % (0-9) H Eosinophils (%) (Auto) 0 % (0-3) Basophils (%) (Auto) 0 % (0-3) Neutrophils # (Auto) 4.3 x10^3uL (1.8-7.7) Lymphocytes # (Auto) 1.3 x10^3/uL (1.0-4.8) Monocytes # (Auto) 0.6 x10^3/uL (0.0-1.1) Eosinophils # (Auto) 0.0 x10^3/uL (0.0-0.7) Basophils # (Auto) 0.0 x10^3/uL (0.0-0.2) Sodium Level 146 mmol/L (136-145) H Potassium Level 5.1 mmol/L (3.5-5.1) Chloride Level 115 mmol/L (98-107) H Carbon Dioxide Level 9 mmol/L (21-32) *L Anion Gap 22 (6-14) H Blood Urea Nitrogen 103 mg/dL (7-20) H Creatinine 6.0 mg/dL (0.6-1.0) H Estimated GFR (Cockcroft-Gault) 7.0 BUN/Creatinine Ratio 17 (6-20) Glucose Level 86 mg/dL (70-99) Calcium Level 7.5 mg/dL (8.5-10.1) L Magnesium Level 1.1 mg/dL (1.8-2.4) L Total Bilirubin 0.4 mg/dL (0.2-1.0) Aspartate Amino Transferase (AST) 14 U/L (15-37) L Alanine Aminotransferase (ALT) 23 U/L (14-59) Alkaline Phosphatase 104 U/L (46-116) Total Protein 7.5 g/dL (6.4-8.2) Albumin 3.9 g/dL (3.4-5.0) Albumin/Globulin Ratio 1.1 (1.0-1.7) Laboratory Tests 06/04/17 15:13 Laboratory Tests 06/04/17 15:13 EKG EKG Interpreted by me: Heart rate 75, sinus rhythm, interpretation limited by artifact, no acute ST elevations or depressions[] Radiology/Procedures Radiology/Procedures [facility] [address] [place] [address] IMAGING REPORT Signed PATIENT: WILLOW HERR ACCOUNT: [id number] : 1950 LOCATION: ER AGE: 67 SEX: F EXAM STATUS: REG ER ORD. PHYSICIAN: BRENDA HART MD REASON: altered mental status, rule out acute cardiopulmonary abnormality PROCEDURE: PORTABLE CHEST 1V Portable chest, 06/04/2017: History: Altered mental status Comparison is made to a study from 05/03/2017. The heart is mildly enlarged. There is tortuosity of the thoracic aorta. The pulmonary vascularity is normal. There is minimal linear atelectasis in the left lower chest. No pulmonary infiltrate is seen. There is no evidence of pleural fluid. IMPRESSION: 1. Aortic atherosclerosis. 2. No acute infiltrates. DICTATED and SIGNED BY: NILESH ESPANA MD DATE: 06/04/17 1557 CC: BRENDA HART MD; CORA GILBERT MD ~ [] Course & Med Decision Making Course & Med Decision Making Pertinent Labs and Imaging studies reviewed. (See chart for details) Patient's lab work shows considerable metabolic derangements, most notably worsening renal failure. This is likely due to decreased oral intake leading to dehydration. Patient started on IV fluids in the emergency department. I spoke with Dr. Gilbert who accepted care patient in hospital for further treatment. A consult was placed to Dr. Ornelas of nephrology to follow patient in hospital. Dragon Disclaimer Dragon Disclaimer This electronic medical record was generated, in whole or in part, using a voice recognition dictation system. Departure Departure Impression: Primary Impression: Acute on chronic renal failure Additional Impressions: Metabolic encephalopathy Hypernatremia Disposition: ADMITTED INPATIENT Condition: STABLE Referrals: CORA GILBERT MD (PCP) Problem Qualifiers Primary Impression: Acute on chronic renal failure Acute renal failure type: unspecified Chronic kidney disease stage: stage 4 (severe) Qualified Codes: N17.9 - Acute kidney failure, unspecified; N18.4 - Chronic kidney disease, stage 4 (severe) BRENDA HART MD Jun 04, 2017 15:28
[2017-06-04 15:38] LABS: BASO % 0 % (0-3); EOS % 0 % (0-3); HEMATOCRIT 31.2 % (36.0-47.0); HEMOGLOBIN 9.7 g/dL (12.0-15.5); LYMPH # 1.3 x10^3/uL (1.0-4.8); LYMPH % 21 % (24-48); MEAN CORPUSCULAR HEMOGLOBIN 28 pg (25-35); MEAN CORPUSCULAR HGB CONC 31 g/dL (31-37); MEAN CORPUSCULAR VOLUME 91 fL (79-100); MONO % 10 % (0-9); NEUT % 69 % (31-73); PLATELET COUNT 109 x10^3/uL (140-400); RED BLOOD COUNT 3.43 x10^6/uL (3.50-5.40); RED CELL DISTRIBUTION WIDTH 15.9 % (11.5-14.5); WHITE BLOOD COUNT 6.2 x10^3/uL (4.0-11.0)
[2017-06-04 15:48] LABS: ALBUMIN 3.9 g/dL (3.4-5.0); ALBUMIN/GLOBULIN RATIO 1.1 (1.0-1.7); CALCIUM 7.5 mg/dL (8.5-10.1); MAGNESIUM 1.1 mg/dL (1.8-2.4); POTASSIUM 5.1 mmol/L (3.5-5.1); TOTAL BILIRUBIN 0.4 mg/dL (0.2-1.0); TOTAL PROTEIN 7.5 g/dL (6.4-8.2)
[2017-06-04] MEDS ORDERED: IV NORMAL SALINE 500ML BAG 500 ML IV ONE (16:00)
--- NOTE | 2017-06-04 16:04 | RAD ---
Portable chest, 06/04/2017: History: Altered mental status Comparison is made to a study from 05/03/2017. The heart is mildly enlarged. There is tortuosity of the thoracic aorta. The pulmonary vascularity is normal. There is minimal linear atelectasis in the left lower chest. No pulmonary infiltrate is seen. There is no evidence of pleural fluid. IMPRESSION: 1. Aortic atherosclerosis. 2. No acute infiltrates.
--- NOTE | 2017-06-04 16:20 | RAD ---
INDICATION: altered mental status COMPARISON: 08/06/2016 TECHNIQUE: Axial CT images obtained through the head without intravenous contrast. FINDINGS: No intracranial hemorrhage. No midline shift. Basal cisterns patents. Ventricles and sulci are globally prominent. [place] white differentiation is maintained without evidence of acute ischemia to large vessel territory. No acute osseous abnormality. Orbits and paranasal sinuses unremarkable. Scattered foci of low attenuation within the white matter. IMPRESSION: 1. No acute intracranial hemorrhage. 2. Scattered regions of low attenuation within the white matter. Non-specific in nature but frequently secondary to chronic small vessel ischemic disease. If there is concern for acute etiology clinically MRI could better evaluate acuity. 3. Prominence of ventricles and sulci which is frequently secondary to age related volume loss. PQRS Compliance Statement: One or more of the following individualized dose reduction techniques were utilized for this examination: 1. Automated exposure control 2. Adjustment of the mA and/or kV according to patient size 3. Use of iterative reconstruction technique
--- NOTE | 2017-06-04 16:29 | EKG ---
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
[2017-06-04] MEDS ORDERED: ACETAMINOPHEN 325 MG TABLET. PO PRN (16:30)
[2017-06-04] MEDS ORDERED: ONDANSETRON PF 4 MG/2 ML VIAL. IV PRN (16:30)
[2017-06-04 16:51] LABS: BILIRUBIN,URINE NEGATIVE (NEG); GLUCOSE,URINE NEGATIVE (NEG); NITRITE,URINE POSITIVE (NEG); PH,URINE 5.5; PROTEIN,URINE 100 mg/dL (NEG-TRACE); UROBILINOGEN,URINE 0.2 mg/dL (0.2 mg/dL)
[2017-06-04 17:00] LABS: BACTERIA,URINE MANY /HPF (0-FEW); WBC,URINE 20-40 /HPF (0-4)
[2017-06-04] MEDS: IV NORMAL SALINE 1000ML BAG 1,000 ML IV SCH (18:43)
[2017-06-04 18:47] VITALS: BP 159/70
[2017-06-04 19:00] VITALS: BP 154/70
[2017-06-04] MEDS ORDERED: PNEUMOCOCCAL VAX SCREEN BY RX. MC ONE (19:45)
[2017-06-04] MEDS ORDERED: INFLUENZA VAX SCREEN BY RX. MC ONE (19:45)
[2017-06-04] MEDS ORDERED: FLU VACC QS2017-18 (36MOS+)/PF 0.5 ML SYRINGE. VAX IM ONE (20:00)
[2017-06-04 23:00] VITALS: BP 153/73
[2017-06-05 03:00] VITALS: BP 141/76
[2017-06-05] MEDS: IV NORMAL SALINE 1000ML BAG 1,000 ML IV SCH ×2 (04:18→08:17)
[2017-06-05 06:32] LABS: BASO % 1 % (0-3); EOS % 0 % (0-3); HEMATOCRIT 28.2 % (36.0-47.0); HEMOGLOBIN 8.7 g/dL (12.0-15.5); LYMPH # 1.1 x10^3/uL (1.0-4.8); LYMPH % 21 % (24-48); MEAN CORPUSCULAR HEMOGLOBIN 28 pg (25-35); MEAN CORPUSCULAR HGB CONC 31 g/dL (31-37); MEAN CORPUSCULAR VOLUME 91 fL (79-100); MONO % 9 % (0-9); NEUT % 70 % (31-73); PLATELET COUNT 107 x10^3/uL (140-400); RED BLOOD COUNT 3.09 x10^6/uL (3.50-5.40); RED CELL DISTRIBUTION WIDTH 15.8 % (11.5-14.5); WHITE BLOOD COUNT 5.3 x10^3/uL (4.0-11.0)
[2017-06-05 06:43] LABS: CALCIUM 7.3 mg/dL (8.5-10.1); CREATININE 5.6 mg/dL (0.6-1.0); GFR 7.6; POTASSIUM 4.4 mmol/L (3.5-5.1)
[2017-06-05 07:00] VITALS: BP 136/67
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
[2017-06-05] MEDS: VITAMIN B12,B9,B6 COMPLEX 1 TABLET. PO SCH (10:07)
[2017-06-05] MEDS: CALCITRIOL 0.25 MCG CAPSULE. PO SCH (10:07)
[2017-06-05] MEDS: ENOXAPARIN 30 MG/0.3 ML SYRINGE. SQ SCH (10:08)
[2017-06-05] MEDS: SODIUM CHLORIDE 38.75 MEQ, SODIUM BICARBONATE VIAL 50 MEQ in IV STERILE WATER 1,000 ML IV SCH ×2 (10:08→22:30)
[2017-06-05 11:00] VITALS: BP 137/68
[2017-06-05] MEDS: PANTOPRAZOLE 40 MG TABLET.DR. PO SCH (12:20)
--- NOTE | 2017-06-05 13:12 | RAD ---
Renal ultrasound, 06/05/2017: History: Renal failure The right kidney measures 9.2 cm in length while the left kidney also measures 9.2 cm. A 1 cm parapelvic renal cyst is present on the right. No other renal mass is seen. The renal parenchymal echogenicity is increased bilaterally. There is no evidence of hydronephrosis. No abnormal perinephric process is seen. The urinary bladder is unremarkable. IMPRESSION: 1. Increased renal parenchymal echogenicity compatible with nonspecific medical renal disease. 2. Small right renal cyst.
[2017-06-05 15:00] VITALS: BP 154/74
--- NOTE | 2017-06-05 16:28 | PDOC2 ---
CONSULT Date of Consult Date of Consult DATE: 06/05/17 TIME: 16:21 Reason for Consult Reason for Consult: KEYONNA Referring Physician Referring Physician: OFELIA Identification/Chief Complaint Chief Complaint CONFUSION Problems: History of Present Illness Reason for Visit: THIS IS A 67 YR OLD WITH CONFUSION. SHE IS NOTED TO HAVE AN UTI. SHE IS ALSO NOTED TO HAVE KEYONNA WITH A CR OF 5.6. SHE IS HYPERNATREMIC AND HAS MET ACIDOSIS. CXRAY IS NEG. SHE HAS CKD STAGE 4 WITH CR BASELINE OF 2.8 Past Medical History Cardiovascular: HTN, Other Pulmonary: Asthma, Other GI: GERD, Other Heme/Onc: Anemia NOS Renal/: Chronic renal insuff, Acute renal failure, UTI, Other Past Surgical History Past Surgical History: Cholecystectomy, Hernia Repair, Hysterectomy Family History Family History: No Significant, Kidney Disease Social History ALCOHOL: none Drugs: None Current Problem List Problem List Problems Medical Problems: (1) Acute on chronic renal failure Status: Acute (2) Hypernatremia Status: Acute (3) Metabolic encephalopathy Status: Acute Current Medications Current Medications Current Medications Sodium Chloride 500 ml @ 500 mls/hr 1X ONCE IV Last administered on 16:18; Start 06/04/17 at 16:00; Stop 06/04/17 at 16:59; Status DC Ondansetron HCl (Zofran) 4 mg PRN Q8HRS PRN IV NAUSEA/VOMITING; Start at 16:30; Stop 06/05/17 at 16:29 Sodium Chloride 1,000 ml @ 125 mls/hr Q8H IV Last administered on 06/05/17 04:18; Start 06/04/17 at 16:17; Stop 06/05/17 at 09:09; Status DC Acetaminophen (Tylenol) 650 mg PRN Q4HRS PRN PO FEVER; Start 06/04/17 at 16:30 ; Stop 06/05/17 at 16:29 Ceftriaxone Sodium 1 gm/ Dextrose 50 ml @ 100 mls/hr Q24H IV Last administered on 06/04/17 18:43; Start 06/04/17 at 18:00 Info (Do NOT chart on this placeholder) 1 each 1X ONCE MC ; Start 06/04/17 at 19:45; Stop 06/04/17 at 19:46; Status UNV Pneumococcal Polyvalent Vaccine (Do NOT chart on this placeholder) 1 each 1X ONCE MC ; Start 06/04/17 at 19:45; Stop 06/04/17 at 19:46; Status UNV Influenza Virus Vaccine Quadrival (Fluarix Quad [id number] Syringe) 0.5 ml ONCE ONCE VAX IM ; Start 06/04/17 at 20:00; Stop 06/04/17 at 20:01; Status DC Sodium Chloride 38.75 meq/Sodium Bicarbonate 50 meq/Sterile Water 1,059.6875 ml @ 125 mls/hr Q8H29M IV Last administered on 06/05/17 10:08; Start 06/05/17 at 09:15 Pantoprazole Sodium (Protonix) 40 mg DAILYAC PO Last administered on 12:20; Start 06/05/17 at 11:30 Enoxaparin Sodium (Lovenox 30mg Syringe) 30 mg Q24H SQ Last administered on 10:08; Start 06/05/17 at 10:00 Calcitriol (Rocaltrol) 0.25 mcg DAILY PO Last administered on 06/05/17 10:07 ; Start 06/05/17 at 10:00 Vitamin B Complex (Folbic Tablet) 1 tab DAILY PO Last administered on 10:07; Start 06/05/17 at 10:00 Fluticasone Propionate (Flonase) 1 spray BID NS ; Start 06/06/17 at 09:00; Status Cancel Fluticasone Propionate (Flonase) 1 spray BID NS ; Start 06/05/17 at 21:00 Active Scripts Active Vitamin D2 (Ergocalciferol (Vitamin D2)) 50,000 Unit Capsule 50,000 Unit PO WEEKLY Folbic Tablet (Cyanocobalamin/Fa/Pyridoxine) 1 Each Tablet 1 Tab PO DAILY Calcitriol 0.25 Mcg Capsule 0.25 Mcg PO DAILY Reported Flovent 50MCG Diskus (Fluticasone Propionate) 50 Mcg Disk.w.dev 50 Mcg IH BID Imodium A-D (Loperamide Hcl) 1 Mg/7.5 Ml Liquid 2 Mg PO DAILY08 Norvasc (Amlodipine Besylate) 10 Mg Tablet 10 Mg PO DAILY08 Allergies Allergies: Coded Allergies: Penicillins (Verified Allergy, Intermediate, rash, 09/05/13) ROS Review of System UNABLE TO OBTAIN Physical Exam General: Alert, Cooperative, No acute distress HEENT: Atraumatic, PERRLA, EOMI, Other (DRY MUCOSA) Lungs: Clear to auscultation Heart: Regular rate, Normal S1 Abdomen: No tenderness Extremities: No clubbing Neuro: Other (CONFUSED, NO ASYMMETRY) MUSCULOSKELETAL: No deformity, No swelling Vitals VITALS Vital Signs Date Time Temp Pulse Resp B/P (MAP) Pulse Ox O2 Delivery O2 Flow Rate FiO2 06/05/17 15:00 98.8 69 18 154/74 (100) 100 Room Air 98.8 Labs Labs Laboratory Tests Test 06/04/17 15:13 06/04/17 16:15 06/04/17 16:40 06/05/17 05:15 White Blood Count 6.2 x10^3/uL (4.0-11.0) 5.3 x10^3/uL (4.0-11.0) Red Blood Count 3.43 x10^6/uL (3.50-5.40) 3.09 x10^6/uL (3.50-5.40) Hemoglobin 9.7 g/dL (12.0-15.5) 8.7 g/dL (12.0-15.5) Hematocrit 31.2 % (36.0-47.0) 28.2 % (36.0-47.0) Mean Corpuscular Volume 91 fL (79-100) 91 fL (79-100) Mean Corpuscular Hemoglobin 28 pg (25-35) 28 pg (25-35) Mean Corpuscular Hemoglobin Concent 31 g/dL (31-37) 31 g/dL (31-37) Red Cell Distribution Width 15.9 % (11.5-14.5) 15.8 % (11.5-14.5) Platelet Count 109 x10^3/uL (140-400) 107 x10^3/uL (140-400) Neutrophils (%) (Auto) 69 % (31-73) 70 % (31-73) Lymphocytes (%) (Auto) 21 % (24-48) 21 % (24-48) Monocytes (%) (Auto) 10 % (0-9) 9 % (0-9) Eosinophils (%) (Auto) 0 % (0-3) 0 % (0-3) Basophils (%) (Auto) 0 % (0-3) 1 % (0-3) Neutrophils # (Auto) 4.3 x10^3uL (1.8-7.7) 3.7 x10^3uL (1.8-7.7) Lymphocytes # (Auto) 1.3 x10^3/uL (1.0-4.8) 1.1 x10^3/uL (1.0-4.8) Monocytes # (Auto) 0.6 x10^3/uL (0.0-1.1) 0.5 x10^3/uL (0.0-1.1) Eosinophils # (Auto) 0.0 x10^3/uL (0.0-0.7) 0.0 x10^3/uL (0.0-0.7) Basophils # (Auto) 0.0 x10^3/uL (0.0-0.2) 0.0 x10^3/uL (0.0-0.2) Sodium Level 146 mmol/L (136-145) 149 mmol/L (136-145) Potassium Level 5.1 mmol/L (3.5-5.1) 4.4 mmol/L (3.5-5.1) Chloride Level 115 mmol/L (98-107) 118 mmol/L (98-107) Carbon Dioxide Level 9 mmol/L (21-32) 8 mmol/L (21-32) Anion Gap 22 (6-14) 23 (6-14) Blood Urea Nitrogen 103 mg/dL (7-20) 90 mg/dL (7-20) Creatinine 6.0 mg/dL (0.6-1.0) 5.6 mg/dL (0.6-1.0) Estimated GFR (Cockcroft-Gault) 7.0 7.6 BUN/Creatinine Ratio 17 (6-20) Glucose Level 86 mg/dL (70-99) 71 mg/dL (70-99) Calcium Level 7.5 mg/dL (8.5-10.1) 7.3 mg/dL (8.5-10.1) Magnesium Level 1.1 mg/dL (1.8-2.4) 1.1 mg/dL (1.8-2.4) Total Bilirubin 0.4 mg/dL (0.2-1.0) Aspartate Amino Transf (AST/SGOT) 14 U/L (15-37) Alanine Aminotransferase (ALT/SGPT) 23 U/L (14-59) Alkaline Phosphatase 104 U/L (46-116) Total Protein 7.5 g/dL (6.4-8.2) Albumin 3.9 g/dL (3.4-5.0) Albumin/Globulin Ratio 1.1 (1.0-1.7) Lactic Acid Level 1.1 mmol/L (0.4-2.0) Urine Collection Type U cath Urine Color Yellow Urine Clarity Cloudy Urine pH 5.5 Urine Specific [place] 1.015 Urine Protein 100 mg/dL (NEG-TRACE) Urine Glucose (UA) Negative mg/dL (NEG) Urine Ketones (Stick) Negative mg/dL (NEG) Urine Blood Large (NEG) Urine Nitrite Positive (NEG) Urine Bilirubin Negative (NEG) Urine Urobilinogen Dipstick 0.2 mg/dL (0.2 mg/dL) Urine Leukocyte Esterase Large (NEG) Urine RBC 1-2 /HPF (0-2) Urine WBC 20-40 /HPF (0-4) Urine Squamous Epithelial Cells None /LPF Urine Amorphous Sediment Present /HPF Urine Bacteria Many /HPF (0-FEW) Test 06/05/17 10:25 Lactic Acid Level 0.7 mmol/L (0.4-2.0) Laboratory Tests Test 06/04/17 16:40 06/05/17 05:15 06/05/17 10:25 Urine Collection Type U cath Urine Color Yellow Urine Clarity Cloudy Urine pH 5.5 Urine Specific [place] 1.015 Urine Protein 100 mg/dL (NEG-TRACE) Urine Glucose (UA) Negative mg/dL (NEG) Urine Ketones (Stick) Negative mg/dL (NEG) Urine Blood Large (NEG) Urine Nitrite Positive (NEG) Urine Bilirubin Negative (NEG) Urine Urobilinogen Dipstick 0.2 mg/dL (0.2 mg/dL) Urine Leukocyte Esterase Large (NEG) Urine RBC 1-2 /HPF (0-2) Urine WBC 20-40 /HPF (0-4) Urine Squamous Epithelial Cells None /LPF Urine Amorphous Sediment Present /HPF Urine Bacteria Many /HPF (0-FEW) White Blood Count 5.3 x10^3/uL (4.0-11.0) Red Blood Count 3.09 x10^6/uL (3.50-5.40) Hemoglobin 8.7 g/dL (12.0-15.5) Hematocrit 28.2 % (36.0-47.0) Mean Corpuscular Volume 91 fL (79-100) Mean Corpuscular Hemoglobin 28 pg (25-35) Mean Corpuscular Hemoglobin Concent 31 g/dL (31-37) Red Cell Distribution Width 15.8 % (11.5-14.5) Platelet Count 107 x10^3/uL (140-400) Neutrophils (%) (Auto) 70 % (31-73) Lymphocytes (%) (Auto) 21 % (24-48) Monocytes (%) (Auto) 9 % (0-9) Eosinophils (%) (Auto) 0 % (0-3) Basophils (%) (Auto) 1 % (0-3) Neutrophils # (Auto) 3.7 x10^3uL (1.8-7.7) Lymphocytes # (Auto) 1.1 x10^3/uL (1.0-4.8) Monocytes # (Auto) 0.5 x10^3/uL (0.0-1.1) Eosinophils # (Auto) 0.0 x10^3/uL (0.0-0.7) Basophils # (Auto) 0.0 x10^3/uL (0.0-0.2) Sodium Level 149 mmol/L (136-145) Potassium Level 4.4 mmol/L (3.5-5.1) Chloride Level 118 mmol/L (98-107) Carbon Dioxide Level 8 mmol/L (21-32) Anion Gap 23 (6-14) Blood Urea Nitrogen 90 mg/dL (7-20) Creatinine 5.6 mg/dL (0.6-1.0) Estimated GFR (Cockcroft-Gault) 7.6 Glucose Level 71 mg/dL (70-99) Calcium Level 7.3 mg/dL (8.5-10.1) Magnesium Level 1.1 mg/dL (1.8-2.4) Lactic Acid Level 0.7 mmol/L (0.4-2.0) Assessment/Plan Assessment/Plan IMP KEYONNA CKD STAGE 4 WITH CR OF 2.8 DEHYDRATION MET ACIDOSIS UTI HTN ANEMIA ENCEPHALOPATHY LOW MAG PLAN IVF'S HCO3 GTT ANTIBIOTICS REPLACE MAG LABS IN AM LIONEL BRAGA MD Jun 05, 2017 16:27
[2017-06-05] MEDS ORDERED: MAGNESIUM SULFATE 2GM 50 ML IV ONE (17:00)
[2017-06-05 19:00] VITALS: BP 148/82
[2017-06-05] MEDS: FLUTICASONE 50MCG/NASAL SPRAY 16GM BOTTLE. NS SCH (20:46)
[2017-06-05] MEDS: amLODIPine BESYLATE 5 MG TABLET PO SCH (20:49)
[2017-06-05 23:00] VITALS: BP 143/75
[2017-06-06 03:00] VITALS: BP 130/72
[2017-06-06 04:21] LABS: HEMATOCRIT 28.4 % (36.0-47.0); HEMOGLOBIN 8.8 g/dL (12.0-15.5); RED BLOOD COUNT 3.16 x10^6/uL (3.50-5.40); RED CELL DISTRIBUTION WIDTH 15.9 % (11.5-14.5); WHITE BLOOD COUNT 4.3 x10^3/uL (4.0-11.0)
[2017-06-06 04:37] LABS: ALBUMIN 3.4 g/dL (3.4-5.0); ALBUMIN/GLOBULIN RATIO 1.2 (1.0-1.7); CALCIUM 7.3 mg/dL (8.5-10.1); CREATININE 5.2 mg/dL (0.6-1.0); GFR 8.2; POTASSIUM 3.6 mmol/L (3.5-5.1); TOTAL BILIRUBIN 0.2 mg/dL (0.2-1.0); TOTAL PROTEIN 6.3 g/dL (6.4-8.2)
[2017-06-06] MEDS: PANTOPRAZOLE 40 MG TABLET.DR. PO SCH (06:12)
[2017-06-06 07:00] VITALS: BP 140/80
[2017-06-06 08:09] LABS: PHOSPHORUS 4.9 mg/dL (2.6-4.7)
[2017-06-06] MEDS: SODIUM CHLORIDE 38.75 MEQ, SODIUM BICARBONATE VIAL 50 MEQ in IV STERILE WATER 1,000 ML IV SCH ×2 (08:10→17:48)
[2017-06-06] MEDS: FLUTICASONE 50MCG/NASAL SPRAY 16GM BOTTLE. NS SCH ×2 (08:23→20:53)
[2017-06-06] MEDS: CALCITRIOL 0.25 MCG CAPSULE. PO SCH (08:23)
[2017-06-06] MEDS: amLODIPine BESYLATE 5 MG TABLET PO SCH (08:23)
[2017-06-06] MEDS: VITAMIN B12,B9,B6 COMPLEX 1 TABLET. PO SCH (08:23)
[2017-06-06] MEDS ORDERED: FLUTICASONE 50MCG/NASAL SPRAY 16GM BOTTLE. NS SCH (09:00)
--- NOTE | 2017-06-06 09:37 | PDOC ---
SUBJECTIVE Subjective much more alert today, answer questions but slow, eating breakfast and feels better OBJECTIVE Vital Signs Vital Signs Date Time Temp Pulse Resp B/P (MAP) Pulse Ox O2 Delivery O2 Flow Rate FiO2 06/06/17 08:23 75 130/72 06/06/17 03:00 99.4 75 18 130/72 (91) 100 99.4 06/05/17 23:00 99.4 74 18 143/75 (97) 100 99.4 06/05/17 20:49 82 152/75 06/05/17 19:53 Room Air 06/05/17 19:00 98.7 82 18 148/82 (104) 100 98.7 06/05/17 15:00 98.8 69 18 154/74 (100) 100 Room Air 98.8 06/05/17 11:00 97.9 76 18 137/68 (91) 99 Room Air 97.9 PHYSICAL EXAM Physical Exam lungs clear heart RRR abd soft no tenderness ext no edema ASSESSMENT/PLAN Assessment/Plan 1-acute on chronic renal failure improving continue hydration 2-metabolic acidosis improving 3-change in mental status secondary to #1 and 2 improving 4-previous history of colon cancer and cervical cancer, and history of small bowel obstruction a month ago 5-history of hypertension resume medication 6-UTI 7- anemia and thrombocytopenia due to B12 deficiency 8-DVT prophylaxis and GI prophylaxis start PT and continue plans Problems: COMMENT Lab Laboratory Tests Test 06/05/17 10:25 06/06/17 04:02 Lactic Acid Level 0.7 mmol/L (0.4-2.0) White Blood Count 4.3 x10^3/uL (4.0-11.0) Red Blood Count 3.16 x10^6/uL (3.50-5.40) Hemoglobin 8.8 g/dL (12.0-15.5) Hematocrit 28.4 % (36.0-47.0) Mean Corpuscular Volume 90 fL (79-100) Mean Corpuscular Hemoglobin 28 pg (25-35) Mean Corpuscular Hemoglobin Concent 31 g/dL (31-37) Red Cell Distribution Width 15.9 % (11.5-14.5) Platelet Count 90 x10^3/uL (140-400) Sodium Level 147 mmol/L (136-145) Potassium Level 3.6 mmol/L (3.5-5.1) Chloride Level 114 mmol/L (98-107) Carbon Dioxide Level 11 mmol/L (21-32) Anion Gap 22 (6-14) Blood Urea Nitrogen 81 mg/dL (7-20) Creatinine 5.2 mg/dL (0.6-1.0) Estimated GFR (Cockcroft-Gault) 8.2 BUN/Creatinine Ratio 16 (6-20) Glucose Level 94 mg/dL (70-99) Calcium Level 7.3 mg/dL (8.5-10.1) Phosphorus Level 4.9 mg/dL (2.6-4.7) Magnesium Level 2.0 mg/dL (1.8-2.4) Total Bilirubin 0.2 mg/dL (0.2-1.0) Aspartate Amino Transf (AST/SGOT) 15 U/L (15-37) Alanine Aminotransferase (ALT/SGPT) 18 U/L (14-59) Alkaline Phosphatase 88 U/L (46-116) Total Protein 6.3 g/dL (6.4-8.2) Albumin 3.4 g/dL (3.4-5.0) Albumin/Globulin Ratio 1.2 (1.0-1.7) CORA GILBERT MD Jun 06, 2017 09:37
[2017-06-06 11:00] VITALS: BP 129/72
[2017-06-06] MEDS: ENOXAPARIN 30 MG/0.3 ML SYRINGE. SQ SCH (11:10)
[2017-06-06 15:00] VITALS: BP 126/65
--- NOTE | 2017-06-06 17:26 | PDOC ---
Renal-Progress Notes Subjective Notes Notes STILL CONFUSED History of Present Illness Hx of present illness STABLE Vitals Vitals Vital Signs Date Time Temp Pulse Resp B/P (MAP) Pulse Ox O2 Delivery O2 Flow Rate FiO2 06/06/17 15:00 97.7 89 20 126/65 (85) 99 Room Air 97.7 Weight Weight [ ] Labs Labs Laboratory Tests Test 06/06/17 04:02 White Blood Count 4.3 x10^3/uL (4.0-11.0) Red Blood Count 3.16 x10^6/uL (3.50-5.40) Hemoglobin 8.8 g/dL (12.0-15.5) Hematocrit 28.4 % (36.0-47.0) Mean Corpuscular Volume 90 fL (79-100) Mean Corpuscular Hemoglobin 28 pg (25-35) Mean Corpuscular Hemoglobin Concent 31 g/dL (31-37) Red Cell Distribution Width 15.9 % (11.5-14.5) Platelet Count 90 x10^3/uL (140-400) Sodium Level 147 mmol/L (136-145) Potassium Level 3.6 mmol/L (3.5-5.1) Chloride Level 114 mmol/L (98-107) Carbon Dioxide Level 11 mmol/L (21-32) Anion Gap 22 (6-14) Blood Urea Nitrogen 81 mg/dL (7-20) Creatinine 5.2 mg/dL (0.6-1.0) Estimated GFR (Cockcroft-Gault) 8.2 BUN/Creatinine Ratio 16 (6-20) Glucose Level 94 mg/dL (70-99) Calcium Level 7.3 mg/dL (8.5-10.1) Phosphorus Level 4.9 mg/dL (2.6-4.7) Magnesium Level 2.0 mg/dL (1.8-2.4) Total Bilirubin 0.2 mg/dL (0.2-1.0) Aspartate Amino Transf (AST/SGOT) 15 U/L (15-37) Alanine Aminotransferase (ALT/SGPT) 18 U/L (14-59) Alkaline Phosphatase 88 U/L (46-116) Total Protein 6.3 g/dL (6.4-8.2) Albumin 3.4 g/dL (3.4-5.0) Albumin/Globulin Ratio 1.2 (1.0-1.7) Micro Micro Microbiology 06/04/17 Urine Culture - Final, Complete 06/04/17 Urine Culture Result 1 (OLAMIDE) - Final, Complete 06/04/17 Antimicrobic Susceptibility - Final, Complete Review of Systems Constitutional: yes: weakness, alert, oriented Ears/Nose/Throat: Yes: no symptom reported Eyes: Yes: no symptom reported Pulmonary: Yes no symptom reported Cardiovascular: Yes no symptom reported Gastrointestional: Yes: no symptom reported Genitourinary: Yes: no symptom reported Skin: Yes no symptom reported Psychiatric/Neurological: Yes: no symptom reported Endocrine: Yes: no symptom reported Physical Exam General Appearance: no apparent distress Skin: warm Respiratory: bilateral CTA Heart: S1S2 Abdomen: soft, bowel sounds present Genitourinary: bladder flat Extremities: pulses present Neurology: alert Assessment Assessment IMP KEYONNA WITH CR OF 5.2 CKD STAGE 4 WITH CR OF ABOUT 2.8 DM II HTN DEHYDRATION UTI MET ACIDOSIS ANEMIA OF CKD PLAN ANTIBIOTICS CONT HCO3 GTT START SCARLET CHECK IRON LIONEL BRAGA MD Jun 06, 2017 17:26
[2017-06-06 19:00] VITALS: BP 140/82
[2017-06-06] MEDS ORDERED: DARBEPOETIN ALFA 60 MCG/0.3 ML DISP.SYRIN. SQ SCH (21:00)
[2017-06-06 23:00] VITALS: BP 151/92
[2017-06-07 03:00] VITALS: BP 141/71
[2017-06-07] MEDS: SODIUM CHLORIDE 38.75 MEQ, SODIUM BICARBONATE VIAL 50 MEQ in IV STERILE WATER 1,000 ML IV SCH ×2 (03:18→03:40)
[2017-06-07 05:45] LABS: HEMATOCRIT 23.9 % (36.0-47.0); HEMOGLOBIN 7.8 g/dL (12.0-15.5); RED BLOOD COUNT 2.76 x10^6/uL (3.50-5.40); RED CELL DISTRIBUTION WIDTH 15.2 % (11.5-14.5); WHITE BLOOD COUNT 3.5 x10^3/uL (4.0-11.0)
[2017-06-07 06:19] LABS: % SAT IRON 13 % (15-34); IRON,SERUM 18 ug/dL (50-170)
[2017-06-07 06:20] LABS: CREATININE 4.7 mg/dL (0.6-1.0); GFR 9.2
[2017-06-07 06:24] LABS: POTASSIUM 2.5 mmol/L (3.5-5.1)
[2017-06-07] MEDS: PANTOPRAZOLE 40 MG TABLET.DR. PO SCH (06:50)
[2017-06-07 07:00] VITALS: BP 136/78
[2017-06-07] MEDS ORDERED: POTASSIUM CHLORIDE 20 MEQ TABLET.ER. PO ONE (07:00)
[2017-06-07] MEDS ORDERED: ACETAMINOPHEN 325 MG TABLET. PO PRN ×2 (07:00)
[2017-06-07] MEDS: [UNRECOGNIZED DRUG - OTHER] IV SCH ×8 (07:31→16:25)
[2017-06-07] MEDS: SODIUM BICARBONATE IV SCH ×8 (07:31→16:25)
[2017-06-07] MEDS: SODIUM CHLORIDE IV SCH ×8 (07:31→16:25)
[2017-06-07] MEDS: FLUTICASONE 50MCG/NASAL SPRAY 16GM BOTTLE. NS SCH ×2 (09:04→21:26)
[2017-06-07] MEDS: VITAMIN B12,B9,B6 COMPLEX 1 TABLET. PO SCH (09:05)
[2017-06-07] MEDS: amLODIPine BESYLATE 5 MG TABLET PO SCH (09:05)
[2017-06-07] MEDS: CALCITRIOL 0.25 MCG CAPSULE. PO SCH (09:06)
[2017-06-07] MEDS: ENOXAPARIN 30 MG/0.3 ML SYRINGE. SQ SCH (09:06)
--- NOTE | 2017-06-07 09:46 | PDOC ---
SUBJECTIVE Subjective looks better no new complaints OBJECTIVE Vital Signs Vital Signs Date Time Temp Pulse Resp B/P (MAP) Pulse Ox O2 Delivery O2 Flow Rate FiO2 06/07/17 09:05 86 136/78 06/07/17 07:00 98.2 86 18 136/78 (97) 99 Room Air 98.2 06/07/17 03:00 98.5 76 17 141/71 (94) 94 Room Air 98.5 06/06/17 23:00 98.7 89 21 151/92 (111) 92 Room Air 98.7 06/06/17 19:51 Room Air 06/06/17 19:00 98.7 76 18 140/82 (101) 93 Room Air 98.7 06/06/17 15:00 97.7 89 20 126/65 (85) 99 Room Air 97.7 06/06/17 11:00 99.5 90 19 129/72 (91) 93 Room Air 99.5 I & O Intake and Output 06/08/17 06:59 Intake Total 500 ml Balance 500 ml Intake Oral 500 ml # Voids 1 # Bowel Movements 1 PHYSICAL EXAM Physical Exam lungs clear heart RRR abd soft ext no edema ASSESSMENT/PLAN Assessment/Plan hypokalemia replacing and added K+ to IVF, kidney function improving continue current plans Problems: COMMENT Lab Laboratory Tests Test 06/07/17 04:55 White Blood Count 3.5 x10^3/uL (4.0-11.0) Red Blood Count 2.76 x10^6/uL (3.50-5.40) Hemoglobin 7.8 g/dL (12.0-15.5) Hematocrit 23.9 % (36.0-47.0) Mean Corpuscular Volume 86 fL (79-100) Mean Corpuscular Hemoglobin 28 pg (25-35) Mean Corpuscular Hemoglobin Concent 33 g/dL (31-37) Red Cell Distribution Width 15.2 % (11.5-14.5) Platelet Count 83 x10^3/uL (140-400) Sodium Level 144 mmol/L (136-145) Potassium Level 2.5 mmol/L (3.5-5.1) Chloride Level 112 mmol/L (98-107) Carbon Dioxide Level 17 mmol/L (21-32) Anion Gap 15 (6-14) Blood Urea Nitrogen 77 mg/dL (7-20) Creatinine 4.7 mg/dL (0.6-1.0) Estimated GFR (Cockcroft-Gault) 9.2 Glucose Level 132 mg/dL (70-99) Calcium Level 7.0 mg/dL (8.5-10.1) Iron Level 18 ug/dL (50-170) Total Iron Binding Capacity 139 ug/dL (250-450) Iron Saturation 13 % (15-34) CORA GILBERT MD Jun 07, 2017 09:46
[2017-06-07 11:00] VITALS: BP 117/78
--- NOTE | 2017-06-07 12:31 | PDOC ---
Renal-Progress Notes Subjective Notes Notes NONE History of Present Illness Hx of present illness NO CHANGE Vitals Vitals Vital Signs Date Time Temp Pulse Resp B/P (MAP) Pulse Ox O2 Delivery O2 Flow Rate FiO2 06/07/17 11:00 98.1 71 18 117/78 (91) 100 Room Air 98.1 Weight Weight [ ] I.O. Intake and Output Intake and Output 06/08/17 07:00 Intake Total 500 ml Balance 500 ml Intake Oral 500 ml # Voids 1 # Bowel Movements 1 Labs Labs Laboratory Tests Test 06/07/17 04:55 White Blood Count 3.5 x10^3/uL (4.0-11.0) Red Blood Count 2.76 x10^6/uL (3.50-5.40) Hemoglobin 7.8 g/dL (12.0-15.5) Hematocrit 23.9 % (36.0-47.0) Mean Corpuscular Volume 86 fL (79-100) Mean Corpuscular Hemoglobin 28 pg (25-35) Mean Corpuscular Hemoglobin Concent 33 g/dL (31-37) Red Cell Distribution Width 15.2 % (11.5-14.5) Platelet Count 83 x10^3/uL (140-400) Sodium Level 144 mmol/L (136-145) Potassium Level 2.5 mmol/L (3.5-5.1) Chloride Level 112 mmol/L (98-107) Carbon Dioxide Level 17 mmol/L (21-32) Anion Gap 15 (6-14) Blood Urea Nitrogen 77 mg/dL (7-20) Creatinine 4.7 mg/dL (0.6-1.0) Estimated GFR (Cockcroft-Gault) 9.2 Glucose Level 132 mg/dL (70-99) Calcium Level 7.0 mg/dL (8.5-10.1) Iron Level 18 ug/dL (50-170) Total Iron Binding Capacity 139 ug/dL (250-450) Iron Saturation 13 % (15-34) Micro Micro Microbiology 06/04/17 Urine Culture - Final, Complete 06/04/17 Urine Culture Result 1 (OLAMIDE) - Final, Complete 06/04/17 Antimicrobic Susceptibility - Final, Complete Review of Systems Constitutional: yes: weakness, alert, oriented Ears/Nose/Throat: Yes: no symptom reported Eyes: Yes: no symptom reported Pulmonary: Yes no symptom reported Cardiovascular: Yes no symptom reported Gastrointestional: Yes: no symptom reported Genitourinary: Yes: no symptom reported Skin: Yes no symptom reported Psychiatric/Neurological: Yes: no symptom reported Endocrine: Yes: no symptom reported Physical Exam General Appearance: no apparent distress Skin: warm Respiratory: bilateral CTA Heart: S1S2 Abdomen: soft, bowel sounds present Genitourinary: bladder flat Extremities: pulses present Neurology: alert Assessment Assessment IMP KEYONNA WITH CR DECREASING SLOWLY - NOW 4.7 CKD STAGE 4 WITH CR OF ABOUT 2.8 DM II HTN DEHYDRATION UTI MET ACIDOSIS-BETTER ANEMIA OF CKD IRON DEFICIENCY PLAN ANTIBIOTICS CONT HCO3 GTT CONT SCARLET START IRON LIONEL BRAGA MD Jun 07, 2017 12:31
[2017-06-07] MEDS ORDERED: IRON SUCROSE COMPLEX 200 MG in IV NORMAL SALINE 100ML 100 ML IV ONE (13:00)
[2017-06-07 15:00] VITALS: BP 118/73
[2017-06-07 19:00] VITALS: BP 120/77
[2017-06-07 23:00] VITALS: BP 129/67
[2017-06-08] MEDS: SODIUM BICARBONATE IV SCH ×12 (01:21→20:23)
[2017-06-08] MEDS: [UNRECOGNIZED DRUG - OTHER] IV SCH ×12 (01:21→20:23)
[2017-06-08] MEDS: SODIUM CHLORIDE IV SCH ×12 (01:21→20:23)
[2017-06-08 03:00] VITALS: BP 129/68
[2017-06-08 04:29] LABS: HEMATOCRIT 23.7 % (36.0-47.0); HEMOGLOBIN 7.7 g/dL (12.0-15.5); RED BLOOD COUNT 2.76 x10^6/uL (3.50-5.40); RED CELL DISTRIBUTION WIDTH 15.3 % (11.5-14.5); WHITE BLOOD COUNT 3.5 x10^3/uL (4.0-11.0)
[2017-06-08 04:45] LABS: CREATININE 4.3 mg/dL (0.6-1.0); GFR 10.2; POTASSIUM 3.6 mmol/L (3.5-5.1)
[2017-06-08 07:00] VITALS: BP 142/82
--- NOTE | 2017-06-08 08:50 | PDOC ---
SUBJECTIVE Subjective up in chair looks and feels better, lovenox held yesterday due to hematuria urine clear today OBJECTIVE Vital Signs Vital Signs Date Time Temp Pulse Resp B/P (MAP) Pulse Ox O2 Delivery O2 Flow Rate FiO2 06/08/17 07:00 98.6 82 20 142/82 (102) 95 Room Air 98.6 06/08/17 03:00 98.3 82 16 129/68 (88) 99 Room Air 98.3 06/07/17 23:00 98.5 76 16 129/67 (87) 96 Room Air 98.5 06/07/17 20:00 Room Air 06/07/17 19:00 98.5 75 18 120/77 (91) 98 Room Air 98.5 06/07/17 15:00 98.4 84 18 118/73 (88) 99 Room Air 98.4 06/07/17 11:00 98.1 71 18 117/78 (91) 100 Room Air 98.1 06/07/17 09:05 86 136/78 PHYSICAL EXAM Physical Exam lungs clear heart RRR + murmur abd soft none tender ext no edema ASSESSMENT/PLAN Assessment/Plan 1-acute on chronic renal failure improving continue hydration 2-metabolic acidosis improving 3-change in mental status secondary to #1 and 2 improving 4-previous history of colon cancer and cervical cancer, and history of small bowel obstruction a month ago 5-history of hypertension resume medication 6-UTI 7- anemia and thrombocytopenia due to B12 deficiency and iron deficiency and anemia of chronic kidney disease 8-DVT prophylaxis held yesterday due to hematuria , urine clear today as reported by RN, continue to monitor Problems: COMMENT Lab Laboratory Tests Test 06/08/17 04:03 White Blood Count 3.5 x10^3/uL (4.0-11.0) Red Blood Count 2.76 x10^6/uL (3.50-5.40) Hemoglobin 7.7 g/dL (12.0-15.5) Hematocrit 23.7 % (36.0-47.0) Mean Corpuscular Volume 86 fL (79-100) Mean Corpuscular Hemoglobin 28 pg (25-35) Mean Corpuscular Hemoglobin Concent 33 g/dL (31-37) Red Cell Distribution Width 15.3 % (11.5-14.5) Platelet Count 74 x10^3/uL (140-400) Sodium Level 145 mmol/L (136-145) Potassium Level 3.6 mmol/L (3.5-5.1) Chloride Level 112 mmol/L (98-107) Carbon Dioxide Level 21 mmol/L (21-32) Anion Gap 12 (6-14) Blood Urea Nitrogen 71 mg/dL (7-20) Creatinine 4.3 mg/dL (0.6-1.0) Estimated GFR (Cockcroft-Gault) 10.2 Glucose Level 100 mg/dL (70-99) Calcium Level 7.0 mg/dL (8.5-10.1) CORA GILBERT MD Jun 08, 2017 08:50
[2017-06-08] MEDS: VITAMIN B12,B9,B6 COMPLEX 1 TABLET. PO SCH (09:37)
[2017-06-08] MEDS: PANTOPRAZOLE 40 MG TABLET.DR. PO SCH (09:37)
[2017-06-08] MEDS: CALCITRIOL 0.25 MCG CAPSULE. PO SCH (09:38)
[2017-06-08] MEDS: ENOXAPARIN 30 MG/0.3 ML SYRINGE. SQ SCH (09:38)
[2017-06-08] MEDS: amLODIPine BESYLATE 5 MG TABLET PO SCH (09:38)
[2017-06-08] MEDS: FLUTICASONE 50MCG/NASAL SPRAY 16GM BOTTLE. NS SCH ×2 (10:31→20:20)
[2017-06-08 11:00] VITALS: BP 132/83
--- NOTE | 2017-06-08 12:38 | PDOC ---
Renal-Progress Notes Subjective Notes Notes NONE History of Present Illness Hx of present illness NO CHANGE Vitals Vitals Vital Signs Date Time Temp Pulse Resp B/P (MAP) Pulse Ox O2 Delivery O2 Flow Rate FiO2 06/08/17 11:00 96.8 79 20 132/83 (99) 98 Room Air 96.8 Weight Weight [ ] I.O. Intake and Output Intake and Output 06/09/17 07:00 Intake Total 1130 ml Balance 1130 ml Intake Oral 180 ml IV Total 950 ml Labs Labs Laboratory Tests Test 06/08/17 04:03 White Blood Count 3.5 x10^3/uL (4.0-11.0) Red Blood Count 2.76 x10^6/uL (3.50-5.40) Hemoglobin 7.7 g/dL (12.0-15.5) Hematocrit 23.7 % (36.0-47.0) Mean Corpuscular Volume 86 fL (79-100) Mean Corpuscular Hemoglobin 28 pg (25-35) Mean Corpuscular Hemoglobin Concent 33 g/dL (31-37) Red Cell Distribution Width 15.3 % (11.5-14.5) Platelet Count 74 x10^3/uL (140-400) Sodium Level 145 mmol/L (136-145) Potassium Level 3.6 mmol/L (3.5-5.1) Chloride Level 112 mmol/L (98-107) Carbon Dioxide Level 21 mmol/L (21-32) Anion Gap 12 (6-14) Blood Urea Nitrogen 71 mg/dL (7-20) Creatinine 4.3 mg/dL (0.6-1.0) Estimated GFR (Cockcroft-Gault) 10.2 Glucose Level 100 mg/dL (70-99) Calcium Level 7.0 mg/dL (8.5-10.1) Micro Micro Microbiology 06/04/17 Urine Culture - Final, Complete 06/04/17 Urine Culture Result 1 (OLAMIDE) - Final, Complete 06/04/17 Antimicrobic Susceptibility - Final, Complete Review of Systems Constitutional: yes: weakness, alert, oriented Ears/Nose/Throat: Yes: no symptom reported Eyes: Yes: no symptom reported Pulmonary: Yes no symptom reported Cardiovascular: Yes no symptom reported Gastrointestional: Yes: no symptom reported Genitourinary: Yes: no symptom reported Skin: Yes no symptom reported Psychiatric/Neurological: Yes: no symptom reported Endocrine: Yes: no symptom reported Physical Exam General Appearance: no apparent distress Skin: warm Respiratory: bilateral CTA Heart: S1S2 Abdomen: soft, bowel sounds present Genitourinary: bladder flat Extremities: pulses present Neurology: alert Assessment Assessment IMP KEYONNA WITH CR DECREASING SLOWLY - NOW 4.3 CKD STAGE 4 WITH CR OF ABOUT 2.8 DM II HTN DEHYDRATION UTI MET ACIDOSIS-BETTER ANEMIA OF CKD IRON DEFICIENCY PLAN ANTIBIOTICS CONT HCO3 GTT CONT SCARLET CONT IRON LIONEL BRAGA MD Jun 08, 2017 12:38
[2017-06-08 14:43] VITALS: BP 135/75
[2017-06-08] MEDS: LACTOBACILLUS RHAMNOSUS GG 1 CAPSULE. PO SCH ×2 (15:39→20:21)
[2017-06-08 15:42] LABS: BILIRUBIN,URINE NEGATIVE (NEG); GLUCOSE,URINE NEGATIVE (NEG); NITRITE,URINE NEGATIVE (NEG); PH,URINE 5.5; PROTEIN,URINE NEGATIVE (NEG-TRACE); UROBILINOGEN,URINE 0.2 mg/dL (0.2 mg/dL)
[2017-06-08 15:58] LABS: BACTERIA,URINE FEW /HPF (0-FEW); RBC,URINE 0 /HPF (0-2); SQUAMOUS EPITHELIAL CELL,UR FEW /LPF
[2017-06-08 19:31] VITALS: BP 139/83
[2017-06-08 23:41] VITALS: BP 133/79
[2017-06-09] MEDS: [UNRECOGNIZED DRUG - OTHER] IV SCH ×8 (03:57→14:07)
[2017-06-09] MEDS: SODIUM CHLORIDE IV SCH ×8 (03:57→14:07)
[2017-06-09] MEDS: SODIUM BICARBONATE IV SCH ×8 (03:57→14:07)
[2017-06-09 03:58] VITALS: BP 126/76
[2017-06-09 04:34] LABS: HEMATOCRIT 24.1 % (36.0-47.0); HEMOGLOBIN 7.8 g/dL (12.0-15.5); RED BLOOD COUNT 2.79 x10^6/uL (3.50-5.40); RED CELL DISTRIBUTION WIDTH 15.1 % (11.5-14.5); WHITE BLOOD COUNT 4.7 x10^3/uL (4.0-11.0)
[2017-06-09 05:13] LABS: CALCIUM 7.2 mg/dL (8.5-10.1); CREATININE 3.5 mg/dL (0.6-1.0); POTASSIUM 3.8 mmol/L (3.5-5.1)
[2017-06-09 07:00] VITALS: BP 149/87
[2017-06-09] MEDS: VITAMIN B12,B9,B6 COMPLEX 1 TABLET. PO SCH (08:45)
[2017-06-09] MEDS: FLUTICASONE 50MCG/NASAL SPRAY 16GM BOTTLE. NS SCH ×2 (08:46→20:35)
[2017-06-09] MEDS: PANTOPRAZOLE 40 MG TABLET.DR. PO SCH (08:46)
[2017-06-09] MEDS: CALCITRIOL 0.25 MCG CAPSULE. PO SCH (08:46)
[2017-06-09] MEDS: amLODIPine BESYLATE 5 MG TABLET PO SCH (08:46)
[2017-06-09] MEDS: LACTOBACILLUS RHAMNOSUS GG 1 CAPSULE. PO SCH ×2 (08:46→20:35)
[2017-06-09] MEDS: ENOXAPARIN 30 MG/0.3 ML SYRINGE. SQ SCH (10:00)
[2017-06-09 11:00] VITALS: BP 133/71
--- NOTE | 2017-06-09 12:17 | PDOC ---
GENERAL General: vss and afebrile. awake and alert and pleasant. feeling much better than on admit. chest clear and heart regular and abdomen benign. creatinine down to 3.5 this am and Hb stable at 7.8. continue hydration and follow labs. Problems: VITAL SIGNS Vital Signs: Vital Signs Date Time Temp Pulse Resp B/P (MAP) Pulse Ox O2 Delivery O2 Flow Rate FiO2 06/09/17 08:46 77 149/87 06/09/17 08:00 Room Air 06/09/17 07:00 98.8 20 98 98.8 ALLERGIES Allergies: Allergies Coded Allergies Type Severity Reaction Last Updated Verified Penicillins Allergy Intermediate rash 09/05/13 Yes MEDS Medications: Current Medications Medications (Trade) Dose Ordered Sig/Rebecca Start Time Stop Time Status Last Admin Dose Admin Acetaminophen (Tylenol) 650 mg PRN Q6HRS PRN 06/07/17 07:00 Amlodipine Besylate (Norvasc) 5 mg DAILY 06/05/17 19:00 06/09/17 08:46 5 MG Calcitriol (Rocaltrol) 0.25 mcg DAILY 06/05/17 10:00 06/09/17 08:46 0.25 MCG Ceftriaxone Sodium 1 gm/ Dextrose 50 ml @ 100 mls/hr Q24H 06/04/17 18:00 06/06/17 12:41 DC 06/05/17 20:43 100 MLS/HR Ceftriaxone Sodium 1 gm/ Sodium Chloride 50 ml @ 100 mls/hr Q24H 06/06/17 18:00 06/08/17 17:07 100 MLS/HR Darbepoetin Jono (Aranesp) 60 mcg WEEKLYHS 06/06/17 21:00 06/06/17 20:54 60 MCG Enoxaparin Sodium (Lovenox 30mg Syringe) 30 mg Q24H 06/05/17 10:00 06/06/17 11:10 30 MG Fluticasone Propionate (Flonase) 1 spray BID 06/05/17 21:00 06/09/17 08:46 1 SPRAY Influenza Virus Vaccine Quadrival (Fluarix Quad 0156-1831 Syringe) 0.5 ml ONCE ONCE 06/04/17 20:00 06/04/17 20:01 DC 06/05/17 20:55 0.5 ML Info (Do NOT chart on this placeholder) 1 each 1X ONCE 06/04/17 19:45 06/04/17 19:46 UNV Iron Sucrose 200 mg/Sodium Chloride 110 ml @ 55 mls/hr 1X ONCE 06/07/17 13:00 06/07/17 14:59 DC 06/07/17 13:44 55 MLS/HR Lactobacillus Rhamnosus (Culturelle) 1 cap BID 06/08/17 15:00 06/09/17 08:46 1 CAP Magnesium Sulfate/ Dextrose 50 ml @ 25 mls/hr 1X ONCE 06/05/17 17:00 06/05/17 18:59 DC 06/05/17 17:54 25 MLS/HR Ondansetron HCl (Zofran) 4 mg PRN Q8HRS PRN 06/04/17 16:30 06/05/17 16:29 DC Pantoprazole Sodium (Protonix) 40 mg DAILYAC 06/05/17 11:30 06/09/17 08:46 40 MG Pneumococcal Polyvalent Vaccine (Do NOT chart on this placeholder) 1 each 1X ONCE 06/04/17 19:45 06/04/17 19:46 UNV Potassium Chloride (Klor-Con) 40 meq 1X ONCE 06/07/17 07:00 06/07/17 07:01 DC 06/07/17 06:51 40 MEQ Sodium Chloride 38.75 meq/Sodium Bicarbonate 50 meq/Potassium Chloride 30 meq/ Sterile Water 1,074.6875 ml @ 125 mls/hr Q8H36M 06/07/17 07:00 06/09/17 03:57 125 MLS/HR Sodium Chloride 38.75 meq/Sodium Bicarbonate 50 meq/Sterile Water 1,059.6875 ml @ 125 mls/hr Q8H29M 06/05/17 09:15 06/07/17 06:36 DC 06/07/17 03:18 125 MLS/HR Vitamin B Complex (Folbic Tablet) 1 tab DAILY 06/05/17 10:00 06/09/17 08:45 1 TAB LAB Lab: Laboratory Tests Test 06/08/17 15:30 06/09/17 04:00 Urine Collection Type Unknown Urine Color Yellow Urine Clarity Clear Urine pH 5.5 Urine Specific [place] 1.010 Urine Protein Negative mg/dL (NEG-TRACE) Urine Glucose (UA) Negative mg/dL (NEG) Urine Ketones (Stick) Negative mg/dL (NEG) Urine Blood Negative (NEG) Urine Nitrite Negative (NEG) Urine Bilirubin Negative (NEG) Urine Urobilinogen Dipstick 0.2 mg/dL (0.2 mg/dL) Urine Leukocyte Esterase Small (NEG) Urine RBC 0 /HPF (0-2) Urine WBC 11-20 /HPF (0-4) Urine Squamous Epithelial Cells Few /LPF Urine Bacteria Few /HPF (0-FEW) White Blood Count 4.7 x10^3/uL (4.0-11.0) Red Blood Count 2.79 x10^6/uL (3.50-5.40) Hemoglobin 7.8 g/dL (12.0-15.5) Hematocrit 24.1 % (36.0-47.0) Mean Corpuscular Volume 86 fL (79-100) Mean Corpuscular Hemoglobin 28 pg (25-35) Mean Corpuscular Hemoglobin Concent 32 g/dL (31-37) Red Cell Distribution Width 15.1 % (11.5-14.5) Platelet Count 80 x10^3/uL (140-400) Sodium Level 144 mmol/L (136-145) Potassium Level 3.8 mmol/L (3.5-5.1) Chloride Level 109 mmol/L (98-107) Carbon Dioxide Level 25 mmol/L (21-32) Anion Gap 10 (6-14) Blood Urea Nitrogen 60 mg/dL (7-20) Creatinine 3.5 mg/dL (0.6-1.0) Estimated GFR (Cockcroft-Gault) 13.0 Glucose Level 91 mg/dL (70-99) Calcium Level 7.2 mg/dL (8.5-10.1) CHIARA BRAR MD Jun 09, 2017 12:17
[2017-06-09 15:00] VITALS: BP 147/87
--- NOTE | 2017-06-09 16:15 | PDOC ---
SUBJECTIVE ROS KEYONNA Doign and feeling much better CVS: no Orthopnea, no CP RESP: no SOB, no WILEY GI: no Nausea, no Vomiting : no Dysuria, no Urgency OBJECTIVE Vital Signs Vital Signs Date Time Temp Pulse Resp B/P (MAP) Pulse Ox O2 Delivery O2 Flow Rate FiO2 06/09/17 15:00 98.8 88 20 147/87 (107) 98 Room Air 98.8 PHYSICAL EXAM Physical Exam GEN: Awake, Oriented x 3, In no distress EYES: Vision Unchanged, Conjunctiva Normal EN: No EN Drainage, Mucous Membranes moist NECK: no JVD, no JVP, Supple, no Thyromegaly CVS: S1S2, no Murmur, No Gallop, No Rub,no Edema RESP: no Rales, no Rhonchi,no Acc. Muscle Use GI: BS + ve, NO Bruit, Non Tender, Non Distended : no CVA tenderness, no Suprapubic Tenderness DIAGNOSIS/ASSESSMENT Assessment & Plan CKD STAGE 4 (DM II + HTN sive / NS ) WITH CR OF ABOUT 2.8 at baseline: Current fluid and E-lyte status does not necessitate emergent need for dialysis. Will re-evaluate for dialysis in the am KEYONNA - almost resolved DEHYDRATION - PO intake is good - D/c IVF UTI with UROSEPSIS - now much better - encephalopathy resolved MET ACIDOSIS-BETTER with IVF; D/c IVf and change to PO Bicarb ANEMIA OF CKD + IRON DEFICIENCY - PO Feso4 Problems: COMMENT/RELEVANT DATA Meds Current Medications Medications (Trade) Dose Ordered Sig/Rebecca Start Time Stop Time Status Last Admin Dose Admin Acetaminophen (Tylenol) 650 mg PRN Q6HRS PRN 06/07/17 07:00 Amlodipine Besylate (Norvasc) 5 mg DAILY 06/05/17 19:00 06/09/17 08:46 5 MG Calcitriol (Rocaltrol) 0.25 mcg DAILY 06/05/17 10:00 06/09/17 08:46 0.25 MCG Ceftriaxone Sodium 1 gm/ Dextrose 50 ml @ 100 mls/hr Q24H 06/04/17 18:00 06/06/17 12:41 DC 06/05/17 20:43 100 MLS/HR Ceftriaxone Sodium 1 gm/ Sodium Chloride 50 ml @ 100 mls/hr Q24H 06/06/17 18:00 06/08/17 17:07 100 MLS/HR Darbepoetin Jono (Aranesp) 60 mcg WEEKLYHS 06/06/17 21:00 06/06/17 20:54 60 MCG Enoxaparin Sodium (Lovenox 30mg Syringe) 30 mg Q24H 06/05/17 10:00 06/06/17 11:10 30 MG Fluticasone Propionate (Flonase) 1 spray BID 06/05/17 21:00 06/09/17 08:46 1 SPRAY Influenza Virus Vaccine Quadrival (Fluarix Quad 6233-6503 Syringe) 0.5 ml ONCE ONCE 06/04/17 20:00 06/04/17 20:01 DC 06/05/17 20:55 0.5 ML Info (Do NOT chart on this placeholder) 1 each 1X ONCE 06/04/17 19:45 06/04/17 19:46 UNV Iron Sucrose 200 mg/Sodium Chloride 110 ml @ 55 mls/hr 1X ONCE 06/07/17 13:00 06/07/17 14:59 DC 06/07/17 13:44 55 MLS/HR Lactobacillus Rhamnosus (Culturelle) 1 cap BID 06/08/17 15:00 06/09/17 08:46 1 CAP Magnesium Sulfate/ Dextrose 50 ml @ 25 mls/hr 1X ONCE 06/05/17 17:00 06/05/17 18:59 DC 06/05/17 17:54 25 MLS/HR Ondansetron HCl (Zofran) 4 mg PRN Q8HRS PRN 06/04/17 16:30 06/05/17 16:29 DC Pantoprazole Sodium (Protonix) 40 mg DAILYAC 06/05/17 11:30 06/09/17 08:46 40 MG Pneumococcal Polyvalent Vaccine (Do NOT chart on this placeholder) 1 each 1X ONCE 06/04/17 19:45 06/04/17 19:46 UNV Potassium Chloride (Klor-Con) 40 meq 1X ONCE 06/07/17 07:00 06/07/17 07:01 DC 06/07/17 06:51 40 MEQ Sodium Chloride 38.75 meq/Sodium Bicarbonate 50 meq/Potassium Chloride 30 meq/ Sterile Water 1,074.6875 ml @ 125 mls/hr Q8H36M 06/07/17 07:00 06/09/17 14:07 125 MLS/HR Sodium Chloride 38.75 meq/Sodium Bicarbonate 50 meq/Sterile Water 1,059.6875 ml @ 125 mls/hr Q8H29M 06/05/17 09:15 06/07/17 06:36 DC 06/07/17 03:18 125 MLS/HR Vitamin B Complex (Folbic Tablet) 1 tab DAILY 06/05/17 10:00 06/09/17 08:45 1 TAB Lab Laboratory Tests Test 06/09/17 04:00 White Blood Count 4.7 x10^3/uL (4.0-11.0) Red Blood Count 2.79 x10^6/uL (3.50-5.40) Hemoglobin 7.8 g/dL (12.0-15.5) Hematocrit 24.1 % (36.0-47.0) Mean Corpuscular Volume 86 fL (79-100) Mean Corpuscular Hemoglobin 28 pg (25-35) Mean Corpuscular Hemoglobin Concent 32 g/dL (31-37) Red Cell Distribution Width 15.1 % (11.5-14.5) Platelet Count 80 x10^3/uL (140-400) Sodium Level 144 mmol/L (136-145) Potassium Level 3.8 mmol/L (3.5-5.1) Chloride Level 109 mmol/L (98-107) Carbon Dioxide Level 25 mmol/L (21-32) Anion Gap 10 (6-14) Blood Urea Nitrogen 60 mg/dL (7-20) Creatinine 3.5 mg/dL (0.6-1.0) Estimated GFR (Cockcroft-Gault) 13.0 Glucose Level 91 mg/dL (70-99) Calcium Level 7.2 mg/dL (8.5-10.1) RUTH MONTANO MD Jun 09, 2017 16:15
[2017-06-09] MEDS ORDERED: IRON SUCROSE COMPLEX 500 MG in IV NORMAL SALINE 250ML 250 ML IV ONE (17:00)
[2017-06-09] MEDS: DOCUSATE SODIUM 100 MG CAPSULE. PO SCH (17:00)
[2017-06-09 19:00] VITALS: BP 135/78
[2017-06-09] MEDS: FERROUS SULFATE 325 MG TABLET. PO SCH (20:36)
[2017-06-09] MEDS: SODIUM BICARBONATE 650 MG TABLET. PO SCH (20:36)
[2017-06-09 22:59] VITALS: BP 148/78
[2017-06-10 03:16] VITALS: BP 126/85
[2017-06-10 07:00] VITALS: BP 148/81
[2017-06-10] MEDS: FERROUS SULFATE 325 MG TABLET. PO SCH (08:04)
[2017-06-10] MEDS: CALCITRIOL 0.25 MCG CAPSULE. PO SCH (08:04)
[2017-06-10] MEDS: LACTOBACILLUS RHAMNOSUS GG 1 CAPSULE. PO SCH (08:04)
[2017-06-10] MEDS: VITAMIN B12,B9,B6 COMPLEX 1 TABLET. PO SCH (08:04)
[2017-06-10] MEDS: amLODIPine BESYLATE 5 MG TABLET PO SCH (08:05)
[2017-06-10] MEDS: DOCUSATE SODIUM 100 MG CAPSULE. PO SCH (08:05)
[2017-06-10] MEDS: SODIUM BICARBONATE 650 MG TABLET. PO SCH (08:05)
[2017-06-10] MEDS: PANTOPRAZOLE 40 MG TABLET.DR. PO SCH (08:05)
[2017-06-10] MEDS: FLUTICASONE 50MCG/NASAL SPRAY 16GM BOTTLE. NS SCH (08:05)
[2017-06-10] MEDS: ENOXAPARIN 30 MG/0.3 ML SYRINGE. SQ SCH (09:59)
--- NOTE | 2017-06-10 10:28 | PDOC ---
GENERAL General: vss and afebrile. awake and alert and approaching her baseline as to how she feels. renal thinks ready for dc per nursing and will do same on current meds and 5 more days cipro for uti. Problems: VITAL SIGNS Vital Signs: Vital Signs Date Time Temp Pulse Resp B/P (MAP) Pulse Ox O2 Delivery O2 Flow Rate FiO2 06/10/17 08:15 Room Air 06/10/17 08:05 75 148/81 06/10/17 07:00 99.7 20 96 99.7 ALLERGIES Allergies: Allergies Coded Allergies Type Severity Reaction Last Updated Verified Penicillins Allergy Intermediate rash 09/05/13 Yes MEDS Medications: Current Medications Medications (Trade) Dose Ordered Sig/Rebecca Start Time Stop Time Status Last Admin Dose Admin Acetaminophen (Tylenol) 650 mg PRN Q6HRS PRN 06/07/17 07:00 Amlodipine Besylate (Norvasc) 5 mg DAILY 06/05/17 19:00 06/10/17 08:05 5 MG Calcitriol (Rocaltrol) 0.25 mcg DAILY 06/05/17 10:00 06/10/17 08:04 0.25 MCG Ceftriaxone Sodium 1 gm/ Dextrose 50 ml @ 100 mls/hr Q24H 06/04/17 18:00 06/06/17 12:41 DC 06/05/17 20:43 100 MLS/HR Ceftriaxone Sodium 1 gm/ Sodium Chloride 50 ml @ 100 mls/hr Q24H 06/06/17 18:00 06/09/17 17:24 100 MLS/HR Darbepoetin Jono (Aranesp) 60 mcg WEEKLYHS 06/06/17 21:00 06/06/17 20:54 60 MCG Docusate Sodium (Colace) 100 mg DAILY 06/09/17 17:00 Enoxaparin Sodium (Lovenox 30mg Syringe) 30 mg Q24H 06/05/17 10:00 06/10/17 09:59 30 MG Ferrous Sulfate (Feosol) 325 mg TIDWMEALS 06/09/17 21:00 06/10/17 08:04 325 MG Fluticasone Propionate (Flonase) 1 spray BID 06/05/17 21:00 06/10/17 08:05 1 SPRAY Influenza Virus Vaccine Quadrival (Fluarix Quad [id number] Syringe) 0.5 ml ONCE ONCE 06/04/17 20:00 06/04/17 20:01 DC 06/05/17 20:55 0.5 ML Info (Do NOT chart on this placeholder) 1 each 1X ONCE 06/04/17 19:45 06/04/17 19:46 UNV Iron Sucrose 200 mg/Sodium Chloride 110 ml @ 55 mls/hr 1X ONCE 06/07/17 13:00 06/07/17 14:59 DC 06/07/17 13:44 55 MLS/HR Iron Sucrose 500 mg/Sodium Chloride 275 ml @ 68.75 mls/ hr 1X ONCE 06/09/17 17:00 06/09/17 20:59 DC 06/09/17 17:56 68.75 MLS/HR Lactobacillus Rhamnosus (Culturelle) 1 cap BID 06/08/17 15:00 06/10/17 08:04 1 CAP Magnesium Sulfate/ Dextrose 50 ml @ 25 mls/hr 1X ONCE 06/05/17 17:00 06/05/17 18:59 DC 06/05/17 17:54 25 MLS/HR Ondansetron HCl (Zofran) 4 mg PRN Q8HRS PRN 06/04/17 16:30 06/05/17 16:29 DC Pantoprazole Sodium (Protonix) 40 mg DAILYAC 06/05/17 11:30 06/10/17 08:05 40 MG Pneumococcal Polyvalent Vaccine (Do NOT chart on this placeholder) 1 each 1X ONCE 06/04/17 19:45 06/04/17 19:46 UNV Potassium Chloride (Klor-Con) 40 meq 1X ONCE 06/07/17 07:00 06/07/17 07:01 DC 06/07/17 06:51 40 MEQ Sodium Bicarbonate (Sodium Bicarbonate) 1,300 mg BID 06/09/17 21:00 06/10/17 08:05 1,300 MG Sodium Chloride 38.75 meq/Sodium Bicarbonate 50 meq/Potassium Chloride 30 meq/ Sterile Water 1,074.6875 ml @ 125 mls/hr Q8H36M 06/07/17 07:00 06/09/17 16:17 DC 06/09/17 14:07 125 MLS/HR Sodium Chloride 38.75 meq/Sodium Bicarbonate 50 meq/Sterile Water 1,059.6875 ml @ 125 mls/hr Q8H29M 06/05/17 09:15 06/07/17 06:36 DC 06/07/17 03:18 125 MLS/HR Vitamin B Complex (Folbic Tablet) 1 tab DAILY 06/05/17 10:00 06/10/17 08:04 1 TAB CHIARA BRAR MD Jun 10, 2017 10:28
[2017-06-10 11:00] VITALS: BP 132/75
[2017-06-10] MEDS ORDERED: ACET325T9 PO (11:02)
[2017-06-10] MEDS ORDERED: FERR-26 PO (11:02)
[2017-06-10] MEDS ORDERED: SODI650T PO (11:02)
--- NOTE | 2017-06-10 12:26 | DS ---
DATE OF DISCHARGE: 06/10/2017 PRIMARY DIAGNOSIS: Acute on chronic renal failure. ADDITIONAL DIAGNOSES: Metabolic acidosis, urinary tract infection with Escherichia coli and sepsis, dehydration, encephalopathy on admission secondary to above. CHIEF COMPLAINT AND HISTORY OF PRESENT ILLNESS: This 67-year-old black female admitted through the Emergency Room with 2-3 days of decreasing mental status, confusion and found to have evidence of urinary tract infection, acute on chronic renal failure with a BUN of 103 and a creatinine of 6 on the time of admission as well as metabolic acidosis with her CO2 level low at 9 on admission. SUMMARY OF STAY: The patient was admitted, treated for urinary tract infection with Cipro, hydrated. Renal function improved with creatinine coming down to 3.5, which Renal stated on the day of admission was likely close to her baseline and felt she could be dismissed and this was accomplished. She woke up, was fully awake, alert and oriented, although she carries a diagnosis of dementia on her history, I certainly did not appreciate that at the time of discharge. She was on Rocephin through the stay for E. coli urinary tract infection. Will be transitioned to Cipro at the time of discharge. She also had Protonix and sodium carbonate added during the stay and prescriptions for the same have been written. DISPOSITION: The patient is discharged to home, regular diet, activity as tolerated, office in [address] Menjivar. DISCHARGE MEDICATIONS: Will be those of her regular home meds in addition, will be taking Cipro 250 b.i.d. for 5 days. She will be on sodium bicarbonate 1300 mg b.i.d. and Protonix 40 mg daily. CHIARA BRAR MD DR: CHIOMA/lacey JOB#: [id number] / [id number] CORA Patel MD
== END 2017-06-10 11:58 | disposition home or self-care (01) | DRG 871 ==
LOC: ER 15:02 → 5 NORTH 16:11
PROVIDERS: ADMIT Internal Medicine; ATTEND Internal Medicine
DX: A41.9 Sepsis, unspecified organism (principal); G93.41 Metabolic encephalopathy; N17.9 Acute kidney failure, unspecified; E87.0 Hyperosmolality and hypernatremia; D69.59 Other secondary thrombocytopenia; E11.22 Type 2 diabetes mellitus with diabetic chronic kidney disease; E87.2 Acidosis; N18.4 Chronic kidney disease, stage 4 (severe); N39.0 Urinary tract infection, site not specified; I12.9 Hypertensive chronic kidney disease with stage 1 through stage 4 chronic kidney disease, or unspecified chronic kidney disease; D50.9 Iron deficiency anemia, unspecified; D63.1 Anemia in chronic kidney disease; E53.8 Deficiency of other specified B group vitamins; E86.0 Dehydration; E87.6 Hypokalemia; F03.90 Unspecified dementia, unspecified severity, without behavioral disturbance, psychotic disturbance, mood disturbance, and anxiety; J45.909 Unspecified asthma, uncomplicated; I70.0 Atherosclerosis of aorta; F32.9 Major depressive disorder, single episode, unspecified; B96.20 Unspecified Escherichia coli [E. coli] as the cause of diseases classified elsewhere; K21.9 Gastro-esophageal reflux disease without esophagitis; Z85.038 Personal history of other malignant neoplasm of large intestine; Z85.41 Personal history of malignant neoplasm of cervix uteri; Z90.49 Acquired absence of other specified parts of digestive tract; Z90.710 Acquired absence of both cervix and uterus; Z90.89 Acquired absence of other organs; Z84.2 Family history of other diseases of the genitourinary system; Z88.0 Allergy status to penicillin
CPT/HCPCS: 36415; 70450; 71010; 76770; 80048; 80053; 81001; 83540; 83550; 83605; 83735; 84100; 85025; 85027; 87086; 87186; 90686; 93005; J0696; J0881; J1650; J1756; J3480; J7030; J7040; J7050; J7060; 97116; 97530; 97535

== ENCOUNTER → 2017-10-02 | Day surgery (SDC) | payer MEDICARE, OTHER ==
[~2017-10-02] MED LIST changes: -AMLO10TA4 PO; -CALC0.25 PO; -CYAN1TAB19 PO; -DIPH50CA PO; -ERGO500027 PO; -FLUT50DI IH; -HYDR-2758 PO; +HYDROmorphone 2 MG/ML VIAL IV; +LIDOCAINE 1% PF 2 ML VIAL. ID; -LOPE1LIQ7 PO; +MORPHINE SULFATE 2 MG/ML DISP.SYRIN. IV; +ONDANSETRON PF 4 MG/2 ML VIAL. IV; +PROCHLORPERAZINE 10 MG/2 ML VIAL. IV; +PROPOFOL 20 ML IV; +fentaNYL PF VIAL 100 MCG/2 ML VIAL IV
[2017-10-02] MEDS: IV RINGERS,LACTATED 1000ML 1,000 ML IV (08:20)
== END | disposition home or self-care (01) ==
LOC: ENDOS 07:22
DX: K92.2 Gastrointestinal hemorrhage, unspecified (principal); I12.9 Hypertensive chronic kidney disease with stage 1 through stage 4 chronic kidney disease, or unspecified chronic kidney disease; N18.9 Chronic kidney disease, unspecified; Z85.41 Personal history of malignant neoplasm of cervix uteri; Z90.710 Acquired absence of both cervix and uterus; J44.9 Chronic obstructive pulmonary disease, unspecified; M19.90 Unspecified osteoarthritis, unspecified site; Z88.0 Allergy status to penicillin
CPT/HCPCS: 45378; J2704

== ENCOUNTER 2017-12-06 15:50 | Inpatient (IN) | payer MEDICARE ==
[2017-12-06 16:36] LABS: ADD MAN DIFF? NO
[2017-12-06 16:40] LABS: BASO % 1 % (0-3); EOS # 0.1 x10^3/uL (0.0-0.7); EOS % 1 % (0-3); HEMATOCRIT 21.5 % (36.0-47.0); LYMPH # 1.4 x10^3/uL (1.0-4.8); LYMPH % 27 % (24-48); MEAN CORPUSCULAR HEMOGLOBIN 28 pg (25-35); MEAN CORPUSCULAR HGB CONC 32 g/dL (31-37); MEAN CORPUSCULAR VOLUME 87 fL (79-100); MONO # 0.4 x10^3/uL (0.0-1.1); MONO % 7 % (0-9); NEUT # 3.4 x10^3uL (1.8-7.7); NEUT % 64 % (31-73); PLATELET COUNT 109 x10^3/uL (140-400); RED BLOOD COUNT 2.46 x10^6/uL (3.50-5.40); RED CELL DISTRIBUTION WIDTH 15.5 % (11.5-14.5); WHITE BLOOD COUNT 5.3 x10^3/uL (4.0-11.0)
[2017-12-06 16:43] LABS: HEMOGLOBIN 6.8 g/dL (12.0-15.5)
[2017-12-06 16:54] LABS: ALBUMIN 3.8 g/dL (3.4-5.0); ALBUMIN/GLOBULIN RATIO 1.2 (1.0-1.7); ALK PHOS 76 U/L (46-116); ALT (SGPT) 12 U/L (14-59); ANION GAP 20 (6-14); AST (SGOT) 14 U/L (15-37); BLOOD UREA NITROGEN 83 mg/dL (7-20); BUN/CREATININE RATIO 16 (6-20); CALCIUM 8.1 mg/dL (8.5-10.1); CHLORIDE 116 mmol/L (98-107); CREATININE 5.2 mg/dL (0.6-1.0); GFR 8.2; GLUCOSE 123 mg/dL (70-99); POTASSIUM 3.5 mmol/L (3.5-5.1); SODIUM 145 mmol/L (136-145); TOTAL BILIRUBIN 0.4 mg/dL (0.2-1.0); TOTAL PROTEIN 7.1 g/dL (6.4-8.2)
[2017-12-06 16:58] LABS: TROPONINI 0.031 ng/mL (0.000-0.055)
[2017-12-06 17:00] LABS: NT-PRO BNP 4707 pg/mL (0-124)
[2017-12-06 17:07] LABS: CARBON DIOXIDE 9 mmol/L (21-32)
[2017-12-06 17:37] LABS: LACTIC ACID 1.1 mmol/L (0.4-2.0)
[2017-12-06] MEDS: SODIUM BICARBONATE VIAL 150 MEQ in IV DEXTROSE 5% 1,000 ML IV (17:39)
[2017-12-06 18:19] LABS: BILIRUBIN,URINE NEGATIVE (NEG); CLARITY,URINE CLEAR; COLOR,URINE YELLOW; GLUCOSE,URINE NEGATIVE (NEG); NITRITE,URINE NEGATIVE (NEG); PROTEIN,URINE 30 mg/dL (NEG-TRACE); UROBILINOGEN,URINE 0.2 mg/dL (0.2 mg/dL)
[2017-12-06 18:26] LABS: AMORPHOUS SEDIMENT,UR PRESENT /HPF; BACTERIA,URINE 0 /HPF (0-FEW); RBC,URINE OCC /HPF (0-2); SQUAMOUS EPITHELIAL CELL,UR OCC /LPF
[2017-12-06] MEDS ORDERED: CIPROFLOXACIN 200MG PREMIX 100 ML IV (21:00)
[2017-12-06] MEDS: CIPROFLOXACIN 200MG PREMIX 100 ML IV (21:30)
[2017-12-06 22:30] LABS: TROPONINI 0.042 ng/mL (0.000-0.055)
[2017-12-06] MEDS: DOCUSATE SODIUM 283 MG/5 ML ENEMA. PR (23:21)
[2017-12-06 23:29] LABS: IMMEDIATE SPIN CROSSMATCH 1
[2017-12-07] MEDS: SODIUM BICARBONATE VIAL 150 MEQ in IV DEXTROSE 5% 1,000 ML IV ×3 (02:38→23:03)
[2017-12-07 05:16] LABS: ADD MAN DIFF? NO
[2017-12-07 05:37] LABS: BASO % 1 % (0-3); EOS # 0.1 x10^3/uL (0.0-0.7); EOS % 1 % (0-3); LYMPH # 0.9 x10^3/uL (1.0-4.8); LYMPH % 22 % (24-48); MEAN CORPUSCULAR HEMOGLOBIN 28 pg (25-35); MEAN CORPUSCULAR HGB CONC 33 g/dL (31-37); MEAN CORPUSCULAR VOLUME 85 fL (79-100); MONO # 0.3 x10^3/uL (0.0-1.1); MONO % 8 % (0-9); NEUT # 2.9 x10^3uL (1.8-7.7); NEUT % 68 % (31-73); PLATELET COUNT 102 x10^3/uL (140-400); RED BLOOD COUNT 2.21 x10^6/uL (3.50-5.40); WHITE BLOOD COUNT 4.2 x10^3/uL (4.0-11.0)
[2017-12-07 05:45] LABS: HEMATOCRIT 18.8 % (36.0-47.0); HEMOGLOBIN 6.2 g/dL (12.0-15.5)
[2017-12-07 05:54] LABS: ANION GAP 20 (6-14); BLOOD UREA NITROGEN 82 mg/dL (7-20); CALCIUM 7.4 mg/dL (8.5-10.1); CARBON DIOXIDE 13 mmol/L (21-32); CHLORIDE 114 mmol/L (98-107); CREATININE 4.9 mg/dL (0.6-1.0); GFR 8.8; GLUCOSE 169 mg/dL (70-99); SODIUM 147 mmol/L (136-145)
[2017-12-07 05:57] LABS: POTASSIUM 2.8 mmol/L (3.5-5.1)
[2017-12-07] MEDS: POTASSIUM CHLORIDE 20 MEQ TABLET.ER. PO ×2 (06:51→13:51)
[2017-12-07] MEDS ORDERED: LIDOCAINE WITH 8.4% SOD BICARB 3 ML DISP.SYRIN. (08:02)
[2017-12-07 09:34] LABS: CROSSMATCH AHG 1 2
[2017-12-07] MEDS: PANTOPRAZOLE IV PUSH 40 MG VIAL. IVP (10:40)
[2017-12-07 13:01] LABS: HEMATOCRIT 26.5 % (36.0-47.0); HEMOGLOBIN 9.2 g/dL (12.0-15.5); MEAN CORPUSCULAR HEMOGLOBIN 30 pg (25-35); MEAN CORPUSCULAR HGB CONC 35 g/dL (31-37); MEAN CORPUSCULAR VOLUME 85 fL (79-100); PLATELET COUNT 92 x10^3/uL (140-400); RED BLOOD COUNT 3.11 x10^6/uL (3.50-5.40); RED CELL DISTRIBUTION WIDTH 14.6 % (11.5-14.5); WHITE BLOOD COUNT 5.6 x10^3/uL (4.0-11.0)
[2017-12-07 13:10] LABS: POTASSIUM 2.8 mmol/L (3.5-5.1)
[2017-12-07] MEDS ORDERED: POTASSIUM CL 40MEQ D5-0.45NACL 1,000 ML IV (16:30)
[2017-12-07 19:17] LABS: MRSA BY PCR Negative (Negative)
[2017-12-07] MEDS: CIPROFLOXACIN 400MG PREMIX 200 ML IV (20:34)
[2017-12-07] MEDS: LACTOBACILLUS RHAMNOSUS GG 1 CAPSULE. PO ×2 (21:00→21:54)
[2017-12-07] MEDS: HEPARIN PF for SUB-Q USE 5,000 UNIT/0.5 ML VIAL. SQ (21:55)
[2017-12-07] MEDS: ONDANSETRON PF 4 MG/2 ML VIAL. IV (22:34)
[2017-12-08] MEDS: HEPARIN PF for SUB-Q USE 5,000 UNIT/0.5 ML VIAL. SQ ×3 (06:28→20:07)
[2017-12-08 06:35] LABS: ADD MAN DIFF? NO
[2017-12-08 06:41] LABS: BASO % 1 % (0-3); EOS # 0.1 x10^3/uL (0.0-0.7); EOS % 2 % (0-3); HEMATOCRIT 24.9 % (36.0-47.0); HEMOGLOBIN 8.8 g/dL (12.0-15.5); LYMPH # 0.6 x10^3/uL (1.0-4.8); LYMPH % 12 % (24-48); MEAN CORPUSCULAR HEMOGLOBIN 30 pg (25-35); MEAN CORPUSCULAR HGB CONC 35 g/dL (31-37); MEAN CORPUSCULAR VOLUME 85 fL (79-100); MONO # 0.5 x10^3/uL (0.0-1.1); MONO % 9 % (0-9); NEUT # 3.9 x10^3uL (1.8-7.7); NEUT % 77 % (31-73); PLATELET COUNT 83 x10^3/uL (140-400); RED BLOOD COUNT 2.94 x10^6/uL (3.50-5.40); RED CELL DISTRIBUTION WIDTH 14.3 % (11.5-14.5); WHITE BLOOD COUNT 5.2 x10^3/uL (4.0-11.0)
[2017-12-08 06:53] LABS: MAGNESIUM 0.8 mg/dL (1.8-2.4)
[2017-12-08 06:54] LABS: ANION GAP 11 (6-14); BLOOD UREA NITROGEN 59 mg/dL (7-20); CARBON DIOXIDE 27 mmol/L (21-32); CHLORIDE 111 mmol/L (98-107); CREATININE 4.1 mg/dL (0.6-1.0); GFR 10.8; GLUCOSE 116 mg/dL (70-99); SODIUM 149 mmol/L (136-145)
[2017-12-08 07:00] LABS: CALCIUM 5.9 mg/dL (8.5-10.1); POTASSIUM 2.5 mmol/L (3.5-5.1)
[2017-12-08] MEDS: PANTOPRAZOLE IV PUSH 40 MG VIAL. IVP (09:57)
[2017-12-08] MEDS: LACTOBACILLUS RHAMNOSUS GG 1 CAPSULE. PO ×2 (09:58→20:04)
[2017-12-08] MEDS: POTASSIUM CHLORIDE 20 MEQ TABLET.ER. PO (11:53)
[2017-12-08] MEDS: MAGNESIUM SULFATE 2GM 50 ML IV (12:27)
[2017-12-08 17:11] LABS: % SAT IRON 10 % (15-34); IRON,SERUM 17 ug/dL (50-170)
[2017-12-08] MEDS: SODIUM BICARBONATE VIAL 150 MEQ in IV DEXTROSE 5% 1,000 ML IV ×2 (17:59→18:03)
[2017-12-08] MEDS: CIPROFLOXACIN 400MG PREMIX 200 ML IV (20:03)
[2017-12-08] MEDS: DARBEPOETIN ALFA 60 MCG/0.3 ML DISP.SYRIN. SQ (20:10)
[2017-12-09 04:24] LABS: ADD MAN DIFF? NO
[2017-12-09] MEDS: SODIUM BICARBONATE VIAL 150 MEQ in IV DEXTROSE 5% 1,000 ML IV ×3 (04:35→23:23)
[2017-12-09 04:40] LABS: BASO % 0 % (0-3); EOS # 0.1 x10^3/uL (0.0-0.7); EOS % 2 % (0-3); HEMATOCRIT 26.9 % (36.0-47.0); HEMOGLOBIN 9.3 g/dL (12.0-15.5); LYMPH # 0.9 x10^3/uL (1.0-4.8); LYMPH % 16 % (24-48); MEAN CORPUSCULAR HEMOGLOBIN 30 pg (25-35); MEAN CORPUSCULAR HGB CONC 35 g/dL (31-37); MEAN CORPUSCULAR VOLUME 85 fL (79-100); MONO # 0.5 x10^3/uL (0.0-1.1); MONO % 9 % (0-9); NEUT # 4.3 x10^3uL (1.8-7.7); NEUT % 73 % (31-73); PLATELET COUNT 77 x10^3/uL (140-400); RED BLOOD COUNT 3.16 x10^6/uL (3.50-5.40); RED CELL DISTRIBUTION WIDTH 14.1 % (11.5-14.5); WHITE BLOOD COUNT 5.9 x10^3/uL (4.0-11.0)
[2017-12-09 05:28] LABS: ANION GAP 6 (6-14); BLOOD UREA NITROGEN 45 mg/dL (7-20); CALCIUM 6.2 mg/dL (8.5-10.1); CARBON DIOXIDE 34 mmol/L (21-32); CHLORIDE 106 mmol/L (98-107); CREATININE 3.8 mg/dL (0.6-1.0); GFR 11.8; GLUCOSE 108 mg/dL (70-99); SODIUM 146 mmol/L (136-145)
[2017-12-09 05:28] LABS: MAGNESIUM 1.3 mg/dL (1.8-2.4); PHOSPHORUS 2.6 mg/dL (2.6-4.7)
[2017-12-09 05:42] LABS: POTASSIUM 2.4 mmol/L (3.5-5.1)
[2017-12-09] MEDS: HEPARIN PF for SUB-Q USE 5,000 UNIT/0.5 ML VIAL. SQ ×3 (05:53→19:26)
[2017-12-09] MEDS: POTASSIUM CHLORIDE 20 MEQ TABLET.ER. PO (08:00)
[2017-12-09] MEDS: LACTOBACILLUS RHAMNOSUS GG 1 CAPSULE. PO ×2 (09:00→19:21)
[2017-12-09] MEDS: PANTOPRAZOLE IV PUSH 40 MG VIAL. IVP (09:08)
[2017-12-09] MEDS: ONDANSETRON PF 4 MG/2 ML VIAL. IV (09:20)
[2017-12-09] MEDS: POTASSIUM CHLORIDE 20MEQ 50 ML IV ×2 (09:52→12:46)
[2017-12-09] MEDS: MAGNESIUM SULFATE 2GM 50 ML IV (10:39)
[2017-12-09] MEDS: PEG 3350/NA SULF,BICARB,CL/KCL 4,000 ML SOLUTION. PO (14:25)
[2017-12-09 17:05] LABS: ALBUMIN 3.1 g/dL (3.4-5.0); ALK PHOS 68 U/L (46-116); ALT (SGPT) 13 U/L (14-59); AST (SGOT) 13 U/L (15-37); DIRECT BILIRUBIN 0.1 mg/dL (0.0-0.2); TOTAL BILIRUBIN 0.6 mg/dL (0.2-1.0); TOTAL PROTEIN 6.2 g/dL (6.4-8.2)
[2017-12-09] MEDS: CIPROFLOXACIN 400MG PREMIX 200 ML IV (19:21)
[2017-12-10 04:45] LABS: ADD MAN DIFF? NO
[2017-12-10 04:55] LABS: BASO % 0 % (0-3); EOS # 0.2 x10^3/uL (0.0-0.7); EOS % 2 % (0-3); HEMATOCRIT 27.9 % (36.0-47.0); HEMOGLOBIN 9.6 g/dL (12.0-15.5); LYMPH # 1.1 x10^3/uL (1.0-4.8); LYMPH % 15 % (24-48); MEAN CORPUSCULAR HEMOGLOBIN 29 pg (25-35); MEAN CORPUSCULAR HGB CONC 34 g/dL (31-37); MEAN CORPUSCULAR VOLUME 86 fL (79-100); MONO # 0.6 x10^3/uL (0.0-1.1); MONO % 8 % (0-9); NEUT # 5.5 x10^3uL (1.8-7.7); NEUT % 74 % (31-73); PLATELET COUNT 79 x10^3/uL (140-400); RED BLOOD COUNT 3.27 x10^6/uL (3.50-5.40); RED CELL DISTRIBUTION WIDTH 14.1 % (11.5-14.5); WHITE BLOOD COUNT 7.4 x10^3/uL (4.0-11.0)
[2017-12-10 05:10] LABS: ANION GAP 6 (6-14); BLOOD UREA NITROGEN 33 mg/dL (7-20); CALCIUM 6.1 mg/dL (8.5-10.1); CARBON DIOXIDE 40 mmol/L (21-32); CHLORIDE 101 mmol/L (98-107); CREATININE 3.6 mg/dL (0.6-1.0); GFR 12.6; GLUCOSE 116 mg/dL (70-99); MAGNESIUM 1.7 mg/dL (1.8-2.4); SODIUM 147 mmol/L (136-145)
[2017-12-10 05:22] LABS: POTASSIUM 2.7 mmol/L (3.5-5.1)
[2017-12-10] MEDS: HEPARIN PF for SUB-Q USE 5,000 UNIT/0.5 ML VIAL. SQ ×3 (06:00→21:42)
[2017-12-10] MEDS ORDERED: LIDOCAINE 1% PF 2 ML VIAL. ID ×2 (07:00→07:15)
[2017-12-10] MEDS ORDERED: IV RINGERS,LACTATED 1000ML 1,000 ML IV (07:00)
[2017-12-10] MEDS ORDERED: ONDANSETRON PF 4 MG/2 ML VIAL. IV (07:00)
[2017-12-10] MEDS ORDERED: PROCHLORPERAZINE 10 MG/2 ML VIAL. IV (07:00)
[2017-12-10] MEDS ORDERED: MORPHINE SULFATE 4 MG/ML DISP.SYRIN. IV (07:00)
[2017-12-10] MEDS ORDERED: fentaNYL PF VIAL 100 MCG/2 ML VIAL IV ×4 (07:00→07:15)
[2017-12-10] MEDS: POTASSIUM CHLORIDE 20MEQ 50 ML IV ×2 (07:07→09:51)
[2017-12-10] MEDS ORDERED: MIDAZOLAM HCL/PF 2 MG/2 ML VIAL. IV (07:15)
[2017-12-10] MEDS ORDERED: PROPOFOL 20 ML IV (07:41)
[2017-12-10] MEDS: IV NORMAL SALINE 1000ML BAG 1,000 ML IV (07:56)
[2017-12-10] MEDS: SODIUM BICARBONATE VIAL 150 MEQ in IV DEXTROSE 5% 1,000 ML IV ×2 (08:35→15:08)
[2017-12-10 08:51] LABS: INR 1.3 (0.8-1.1); PROTHROMBIN TIME PATIENT 15.2 SEC (11.7-14.0)
[2017-12-10 08:52] LABS: PARTIAL THROMBOPLASTIN TIME 33 SEC (24-38)
[2017-12-10] MEDS: LACTOBACILLUS RHAMNOSUS GG 1 CAPSULE. PO ×2 (09:00→21:36)
[2017-12-10] MEDS: PANTOPRAZOLE IV PUSH 40 MG VIAL. IVP (09:48)
[2017-12-10] MEDS ORDERED: LIDOCAINE 2%/EPI 1:100,000 20 ML VIAL. (12:35)
[2017-12-10] MEDS ORDERED: HEPARIN for IV BOLUS 10,000 UNIT/10 ML VIAL. (12:35)
[2017-12-10] MEDS: LIDOCAINE 2%/EPI 1:100,000 20 ML VIAL. IJ (12:45)
[2017-12-10] MEDS ORDERED: MIDAZOLAM HCL/PF 2 MG/2 ML VIAL. (12:47)
[2017-12-10] MEDS ORDERED: fentaNYL PF VIAL 100 MCG/2 ML VIAL (12:47)
[2017-12-10] MEDS: MIDAZOLAM HCL/PF 2 MG/2 ML VIAL. IV (13:00)
[2017-12-10] MEDS ORDERED: VANCOMYCIN 1GM IVPB FOR OMNI 250 ML IV (13:00)
[2017-12-10] MEDS: fentaNYL PF VIAL 100 MCG/2 ML VIAL IV (13:00)
[2017-12-10] MEDS ORDERED: IV NORMAL SALINE 1000ML BAG 1,000 ML IV ×2 (16:55)
[2017-12-10] MEDS ORDERED: DIALYSIS PATIENT. MC ×2 (17:00)
[2017-12-10] MEDS: CIPROFLOXACIN 400MG PREMIX 200 ML IV (19:58)
[2017-12-11] MEDS: SODIUM BICARBONATE VIAL 150 MEQ in IV DEXTROSE 5% 1,000 ML IV (02:49)
[2017-12-11 05:57] LABS: ADD MAN DIFF? NO
[2017-12-11 06:09] LABS: BASO % 0 % (0-3); EOS # 0.1 x10^3/uL (0.0-0.7); EOS % 2 % (0-3); HEMATOCRIT 26.2 % (36.0-47.0); HEMOGLOBIN 8.6 g/dL (12.0-15.5); LYMPH # 0.4 x10^3/uL (1.0-4.8); LYMPH % 6 % (24-48); MEAN CORPUSCULAR HEMOGLOBIN 29 pg (25-35); MEAN CORPUSCULAR HGB CONC 33 g/dL (31-37); MEAN CORPUSCULAR VOLUME 87 fL (79-100); MONO # 0.7 x10^3/uL (0.0-1.1); MONO % 9 % (0-9); NEUT # 6.3 x10^3uL (1.8-7.7); NEUT % 83 % (31-73); PLATELET COUNT 75 x10^3/uL (140-400); RED CELL DISTRIBUTION WIDTH 13.6 % (11.5-14.5); WHITE BLOOD COUNT 7.6 x10^3/uL (4.0-11.0)
[2017-12-11 06:19] LABS: ANION GAP 4 (6-14); BLOOD UREA NITROGEN 28 mg/dL (7-20); CALCIUM 6.8 mg/dL (8.5-10.1); CARBON DIOXIDE 42 mmol/L (21-32); CHLORIDE 99 mmol/L (98-107); CREATININE 3.6 mg/dL (0.6-1.0); GFR 12.6; GLUCOSE 124 mg/dL (70-99); SODIUM 145 mmol/L (136-145)
[2017-12-11 06:31] LABS: POTASSIUM 2.4 mmol/L (3.5-5.1)
[2017-12-11 07:08] LABS: POC GLUCOSE 120 mg/dL (70-99)
[2017-12-11 07:38] LABS: HEP B SURFACE ABDY Non Reactive (.); HEP B SURFACE AG Negative (Negative)
[2017-12-11] MEDS: POTASSIUM CHLORIDE 20MEQ 50 ML IV ×6 (07:41→18:30)
[2017-12-11] MEDS: LACTOBACILLUS RHAMNOSUS GG 1 CAPSULE. PO ×2 (09:00→20:11)
[2017-12-11] MEDS: PANTOPRAZOLE IV PUSH 40 MG VIAL. IVP (09:24)
[2017-12-11] MEDS: HEPARIN PF for SUB-Q USE 5,000 UNIT/0.5 ML VIAL. SQ ×2 (12:15→17:23)
[2017-12-11] MEDS ORDERED: IV NORMAL SALINE 1000ML BAG 1,000 ML IV ×2 (12:57)
[2017-12-11] MEDS ORDERED: DIALYSIS PATIENT. MC ×2 (13:00)
[2017-12-11] MEDS ORDERED: ALBUMIN HUMAN 25% 200 ML IV (13:00)
[2017-12-11 13:57] LABS: ANION GAP 3 (6-14); BLOOD UREA NITROGEN 26 mg/dL (7-20); CALCIUM 6.5 mg/dL (8.5-10.1); CARBON DIOXIDE 42 mmol/L (21-32); CHLORIDE 101 mmol/L (98-107); CREATININE 3.3 mg/dL (0.6-1.0); GFR 13.9; GLUCOSE 114 mg/dL (70-99); SODIUM 146 mmol/L (136-145)
[2017-12-11] MEDS ORDERED: POTASSIUM CHLORIDE 20MEQ 50 ML IV ×3 (14:30→15:00)
[2017-12-11 14:36] LABS: MAGNESIUM 1.4 mg/dL (1.8-2.4)
[2017-12-11] MEDS: MAGNESIUM SULFATE 4GM 100 ML IV (15:32)
[2017-12-11] MEDS: CIPROFLOXACIN 400MG PREMIX 200 ML IV (20:39)
[2017-12-12] MEDS: HEPARIN PF for SUB-Q USE 5,000 UNIT/0.5 ML VIAL. SQ ×2 (01:44→06:00)
[2017-12-12 04:57] LABS: ADD MAN DIFF? NO
[2017-12-12 04:59] LABS: BASO % 0 % (0-3); EOS # 0.1 x10^3/uL (0.0-0.7); EOS % 2 % (0-3); HEMATOCRIT 25.2 % (36.0-47.0); HEMOGLOBIN 8.3 g/dL (12.0-15.5); LYMPH # 0.9 x10^3/uL (1.0-4.8); LYMPH % 11 % (24-48); MEAN CORPUSCULAR HEMOGLOBIN 29 pg (25-35); MEAN CORPUSCULAR HGB CONC 33 g/dL (31-37); MEAN CORPUSCULAR VOLUME 89 fL (79-100); MONO # 0.7 x10^3/uL (0.0-1.1); MONO % 9 % (0-9); NEUT # 6.3 x10^3uL (1.8-7.7); NEUT % 78 % (31-73); PLATELET COUNT 69 x10^3/uL (140-400); RED BLOOD COUNT 2.83 x10^6/uL (3.50-5.40); RED CELL DISTRIBUTION WIDTH 13.6 % (11.5-14.5); WHITE BLOOD COUNT 8.2 x10^3/uL (4.0-11.0)
[2017-12-12 05:12] LABS: ANION GAP 4 (6-14); BLOOD UREA NITROGEN 13 mg/dL (7-20); CALCIUM 7.7 mg/dL (8.5-10.1); CARBON DIOXIDE 33 mmol/L (21-32); CHLORIDE 106 mmol/L (98-107); CREATININE 2.2 mg/dL (0.6-1.0); GFR 22.2; GLUCOSE 99 mg/dL (70-99); SODIUM 143 mmol/L (136-145)
[2017-12-12 05:18] LABS: POTASSIUM 4.6 mmol/L (3.5-5.1)
[2017-12-12 05:49] LABS: MAGNESIUM 2.7 mg/dL (1.8-2.4)
[2017-12-12] MEDS: PANTOPRAZOLE IV PUSH 40 MG VIAL. IVP (07:57)
[2017-12-12] MEDS: LACTOBACILLUS RHAMNOSUS GG 1 CAPSULE. PO ×2 (08:56→22:33)
[2017-12-12] MEDS: CIPROFLOXACIN 400MG PREMIX 200 ML IV (22:27)
[2017-12-13 05:48] LABS: ADD MAN DIFF? NO
[2017-12-13 06:02] LABS: ANION GAP 2 (6-14); BLOOD UREA NITROGEN 15 mg/dL (7-20); CALCIUM 8.1 mg/dL (8.5-10.1); CARBON DIOXIDE 34 mmol/L (21-32); CHLORIDE 106 mmol/L (98-107); CREATININE 2.1 mg/dL (0.6-1.0); GFR 23.4; GLUCOSE 117 mg/dL (70-99); POTASSIUM 3.2 mmol/L (3.5-5.1); SODIUM 142 mmol/L (136-145)
[2017-12-13 06:10] LABS: BASO % 0 % (0-3); EOS # 0.2 x10^3/uL (0.0-0.7); EOS % 2 % (0-3); HEMATOCRIT 23.2 % (36.0-47.0); HEMOGLOBIN 7.5 g/dL (12.0-15.5); LYMPH # 0.9 x10^3/uL (1.0-4.8); LYMPH % 10 % (24-48); MEAN CORPUSCULAR HEMOGLOBIN 29 pg (25-35); MEAN CORPUSCULAR HGB CONC 32 g/dL (31-37); MEAN CORPUSCULAR VOLUME 89 fL (79-100); MONO # 0.7 x10^3/uL (0.0-1.1); MONO % 9 % (0-9); NEUT # 6.5 x10^3uL (1.8-7.7); NEUT % 79 % (31-73); PLATELET COUNT 67 x10^3/uL (140-400); RED BLOOD COUNT 2.61 x10^6/uL (3.50-5.40); RED CELL DISTRIBUTION WIDTH 13.7 % (11.5-14.5); WHITE BLOOD COUNT 8.3 x10^3/uL (4.0-11.0)
[2017-12-13] MEDS: POTASSIUM CHLORIDE 20MEQ 50 ML IV ×2 (07:30→08:33)
[2017-12-13] MEDS: PANTOPRAZOLE 40 MG TABLET.DR. PO (08:33)
[2017-12-13] MEDS: LACTOBACILLUS RHAMNOSUS GG 1 CAPSULE. PO ×2 (08:33→21:23)
[2017-12-13 13:23] LABS: ANION GAP 3 (6-14); BLOOD UREA NITROGEN 18 mg/dL (7-20); CARBON DIOXIDE 32 mmol/L (21-32); CHLORIDE 107 mmol/L (98-107); CREATININE 2.3 mg/dL (0.6-1.0); GFR 21.1; GLUCOSE 119 mg/dL (70-99); POTASSIUM 3.8 mmol/L (3.5-5.1); SODIUM 142 mmol/L (136-145)
[2017-12-13] MEDS: CIPROFLOXACIN 400MG PREMIX 200 ML IV (21:23)
[2017-12-14 05:32] LABS: ADD MAN DIFF? NO
[2017-12-14 05:36] LABS: BASO # 0.1 x10^3/uL (0.0-0.2); BASO % 1 % (0-3); EOS # 0.2 x10^3/uL (0.0-0.7); EOS % 2 % (0-3); HEMATOCRIT 26.1 % (36.0-47.0); HEMOGLOBIN 8.4 g/dL (12.0-15.5); LYMPH # 1.7 x10^3/uL (1.0-4.8); LYMPH % 15 % (24-48); MEAN CORPUSCULAR HEMOGLOBIN 29 pg (25-35); MEAN CORPUSCULAR HGB CONC 32 g/dL (31-37); MEAN CORPUSCULAR VOLUME 90 fL (79-100); MONO # 0.9 x10^3/uL (0.0-1.1); MONO % 7 % (0-9); NEUT # 8.6 x10^3uL (1.8-7.7); NEUT % 75 % (31-73); PLATELET COUNT 96 x10^3/uL (140-400); RED BLOOD COUNT 2.91 x10^6/uL (3.50-5.40); RED CELL DISTRIBUTION WIDTH 13.7 % (11.5-14.5); WHITE BLOOD COUNT 11.5 x10^3/uL (4.0-11.0)
[2017-12-14 06:05] LABS: ANION GAP 5 (6-14); BLOOD UREA NITROGEN 22 mg/dL (7-20); CALCIUM 8.3 mg/dL (8.5-10.1); CARBON DIOXIDE 30 mmol/L (21-32); CHLORIDE 109 mmol/L (98-107); CREATININE 2.9 mg/dL (0.6-1.0); GFR 16.1; GLUCOSE 106 mg/dL (70-99); POTASSIUM 3.6 mmol/L (3.5-5.1); SODIUM 144 mmol/L (136-145)
[2017-12-14] MEDS: PANTOPRAZOLE 40 MG TABLET.DR. PO (09:26)
[2017-12-14] MEDS: LACTOBACILLUS RHAMNOSUS GG 1 CAPSULE. PO ×2 (09:26→20:33)
[2017-12-14] MEDS: levETIRAcetam 500 MG TABLET PO ×2 (09:32→20:33)
[2017-12-14] MEDS ORDERED: IV NORMAL SALINE 1000ML BAG 1,000 ML IV ×2 (11:12)
[2017-12-14] MEDS ORDERED: ACETAMINOPHEN 500 MG TABLET PO (11:15)
[2017-12-14] MEDS ORDERED: cloNIDine HCL 0.1 MG TABLET PO (11:15)
[2017-12-14] MEDS ORDERED: DIALYSIS PATIENT. MC (11:15)
[2017-12-14] MEDS ORDERED: diphenhydrAMINE 50 MG/ML VIAL IV ×2 (11:15)
[2017-12-14] MEDS ORDERED: LABETALOL 20 MG/4 ML DISP.SYRIN. IVP (11:15)
[2017-12-14] MEDS ORDERED: ALBUMIN HUMAN 25% 200 ML IV (11:15)
[2017-12-14 11:36] LABS: HEPARIN INDUC PLT ABDY SEE SEPARATE REPORT
[2017-12-14 13:09] LABS: BILIRUBIN,URINE NEGATIVE (NEG); CLARITY,URINE CLEAR; COLOR,URINE YELLOW; GLUCOSE,URINE NEGATIVE (NEG); NITRITE,URINE NEGATIVE (NEG); PROTEIN,URINE 30 mg/dL (NEG-TRACE); UROBILINOGEN,URINE 0.2 mg/dL (0.2 mg/dL)
[2017-12-14 13:32] LABS: BACTERIA,URINE 0 /HPF (0-FEW); SQUAMOUS EPITHELIAL CELL,UR FEW /LPF; WBC,URINE TNTC /HPF (0-4); YEAST,URINE PRESENT /HPF
[2017-12-15] MEDS: levETIRAcetam 500 MG TABLET PO ×2 (09:00→20:35)
[2017-12-15] MEDS: ACETAMINOPHEN 500 MG TABLET PO (09:38)
[2017-12-15] MEDS: LACTOBACILLUS RHAMNOSUS GG 1 CAPSULE. PO ×2 (09:38→20:35)
[2017-12-15] MEDS: PANTOPRAZOLE 40 MG TABLET.DR. PO (09:39)
[2017-12-15] MEDS ORDERED: ACETAMINOPHEN 325 MG TABLET. PO (10:00)
[2017-12-15 13:22] LABS: SEDIMENTATION RATE 42 (0-25)
[2017-12-15] MEDS: CIPROFLOXACIN 400MG PREMIX 200 ML IV (14:02)
[2017-12-15] MEDS: DARBEPOETIN ALFA 60 MCG/0.3 ML DISP.SYRIN. SQ (20:36)
[2017-12-16 06:07] LABS: ADD MAN DIFF? NO
[2017-12-16 06:22] LABS: ALBUMIN 2.3 g/dL (3.4-5.0); ANION GAP 5 (6-14); BLOOD UREA NITROGEN 19 mg/dL (7-20); CALCIUM 7.8 mg/dL (8.5-10.1); CARBON DIOXIDE 29 mmol/L (21-32); CHLORIDE 109 mmol/L (98-107); CREATININE 2.7 mg/dL (0.6-1.0); GFR 17.5; GLUCOSE 94 mg/dL (70-99); PHOSPHORUS 2.6 mg/dL (2.6-4.7); POTASSIUM 3.4 mmol/L (3.5-5.1); SODIUM 143 mmol/L (136-145)
[2017-12-16 06:54] LABS: BASO % 1 % (0-3); EOS # 0.2 x10^3/uL (0.0-0.7); EOS % 2 % (0-3); HEMATOCRIT 22.3 % (36.0-47.0); HEMOGLOBIN 7.3 g/dL (12.0-15.5); LYMPH # 1.1 x10^3/uL (1.0-4.8); LYMPH % 12 % (24-48); MEAN CORPUSCULAR HEMOGLOBIN 29 pg (25-35); MEAN CORPUSCULAR HGB CONC 33 g/dL (31-37); MEAN CORPUSCULAR VOLUME 90 fL (79-100); MONO # 0.8 x10^3/uL (0.0-1.1); MONO % 9 % (0-9); NEUT # 6.7 x10^3uL (1.8-7.7); NEUT % 77 % (31-73); PLATELET COUNT 114 x10^3/uL (140-400); RED BLOOD COUNT 2.48 x10^6/uL (3.50-5.40); RED CELL DISTRIBUTION WIDTH 14.1 % (11.5-14.5); WHITE BLOOD COUNT 8.8 x10^3/uL (4.0-11.0)
[2017-12-16] MEDS: CIPROFLOXACIN 400MG PREMIX 200 ML IV (08:46)
[2017-12-16] MEDS: PANTOPRAZOLE 40 MG TABLET.DR. PO (08:46)
[2017-12-16] MEDS: levETIRAcetam 500 MG TABLET PO (08:46)
[2017-12-16] MEDS: LACTOBACILLUS RHAMNOSUS GG 1 CAPSULE. PO (08:46)
== END 2017-12-16 15:15 | DRG 388 ==
LOC: 1 WEST ICU 12-11 07:14 → 5 SOUTH 12-13 16:25 → ER 15:50 → 4 NORTH 12-08 17:27 → 1 WEST ICU 17:45
PROC: 0DBH8ZX Excision of Cecum, Via Natural or Artificial Opening Endoscopic, Diagnostic (ICD-10-PCS; principal; 2017-12-10 07:30)
PROC: 30233N1 Transfusion of Nonautologous Red Blood Cells into Peripheral Vein, Percutaneous Approach (ICD-10-PCS; 2017-12-10 08:05)
PROC: 02HV33Z Insertion of Infusion Device into Superior Vena Cava, Percutaneous Approach (ICD-10-PCS; 2017-12-10 08:05)
PROC: B548ZZA Ultrasonography of Superior Vena Cava, Guidance (ICD-10-PCS; 2017-12-10 08:05)
PROC: 02H633Z Insertion of Infusion Device into Right Atrium, Percutaneous Approach (ICD-10-PCS; 2017-12-10 08:05)
PROC: B2141ZZ Fluoroscopy of Right Heart using Low Osmolar Contrast (ICD-10-PCS; 2017-12-10 08:05)
PROC: 5A1D70Z Performance of Urinary Filtration, Intermittent, Less than 6 Hours Per Day (ICD-10-PCS; 2017-12-10 08:05)
PROC: 5A1D70Z Performance of Urinary Filtration, Intermittent, Less than 6 Hours Per Day (ICD-10-PCS; 2017-12-10 08:05)
PROC: 5A1D70Z Performance of Urinary Filtration, Intermittent, Less than 6 Hours Per Day (ICD-10-PCS; 2017-12-10 08:05)
DX: K56.609 Unspecified intestinal obstruction, unspecified as to partial versus complete obstruction (principal); N18.6 End stage renal disease; G93.41 Metabolic encephalopathy; N17.9 Acute kidney failure, unspecified; E44.0 Moderate protein-calorie malnutrition; J18.9 Pneumonia, unspecified organism; E87.0 Hyperosmolality and hypernatremia; E87.2 Acidosis; I12.0 Hypertensive chronic kidney disease with stage 5 chronic kidney disease or end stage renal disease; K62.5 Hemorrhage of anus and rectum; N39.0 Urinary tract infection, site not specified; D63.1 Anemia in chronic kidney disease; E83.42 Hypomagnesemia; E83.51 Hypocalcemia; E87.6 Hypokalemia; F03.90 Unspecified dementia, unspecified severity, without behavioral disturbance, psychotic disturbance, mood disturbance, and anxiety; F32.9 Major depressive disorder, single episode, unspecified; G47.30 Sleep apnea, unspecified; J44.9 Chronic obstructive pulmonary disease, unspecified; K21.9 Gastro-esophageal reflux disease without esophagitis; K43.9 Ventral hernia without obstruction or gangrene; M19.90 Unspecified osteoarthritis, unspecified site; M10.9 Gout, unspecified; K59.00 Constipation, unspecified; K52.9 Noninfective gastroenteritis and colitis, unspecified; R56.9 Unspecified convulsions; Z79.899 Other long term (current) drug therapy; Z85.038 Personal history of other malignant neoplasm of large intestine; Z87.442 Personal history of urinary calculi; Z90.710 Acquired absence of both cervix and uterus; Z92.3 Personal history of irradiation; Z99.2 Dependence on renal dialysis; Z87.81 Personal history of (healed) traumatic fracture; Z88.0 Allergy status to penicillin; Z90.49 Acquired absence of other specified parts of digestive tract; Z68.25 Body mass index [BMI] 25.0-25.9, adult
CPT/HCPCS: 36415; 36556; 36558; 45380; 70450; 71045; 71046; 74176; 76937; 77001; 80048; 80053; 80069; 80076; 81001; 82962; 83540; 83550; 83605; 83735; 83880; 84100; 84132; 84484; 85025; 85027; 85610; 85651; 85730; 86022; 86704; 86706; 86850; 86900; 86901; 86902; 86922; 87040; 87086; 87340; 87641; 93005; 97116-GP; 97161-GP; 97165-GO; 97530-GP; 97535-GO; 99156; 99285; 99285-25; C1750; C1769; C1892; C9113; J0744; J0881; J1953; J2060; J2250; J2405; J2704; J3010; J3475; J3480; J3490; J7030; P9016

== ENCOUNTER 2017-12-26 07:12 | Outpatient (CLI) | payer MEDICARE, MEDICAID ==
[2017-12-26 08:15] LABS: ADD MAN DIFF? NO
[2017-12-26 08:16] LABS: BASO # 0.1 x10^3/uL (0.0-0.2); BASO % 1 % (0-3); EOS # 0.1 x10^3/uL (0.0-0.7); EOS % 2 % (0-3); HEMOGLOBIN 7.7 g/dL (12.0-15.5); LYMPH # 0.9 x10^3/uL (1.0-4.8); LYMPH % 13 % (24-48); MEAN CORPUSCULAR HEMOGLOBIN 29 pg (25-35); MEAN CORPUSCULAR HGB CONC 32 g/dL (31-37); MEAN CORPUSCULAR VOLUME 90 fL (79-100); MONO # 0.5 x10^3/uL (0.0-1.1); MONO % 7 % (0-9); NEUT # 5.3 x10^3uL (1.8-7.7); NEUT % 77 % (31-73); PLATELET COUNT 168 x10^3/uL (140-400); RED BLOOD COUNT 2.67 x10^6/uL (3.50-5.40); RED CELL DISTRIBUTION WIDTH 14.9 % (11.5-14.5); WHITE BLOOD COUNT 6.9 x10^3/uL (4.0-11.0)
[2017-12-26 08:28] LABS: INR 1.1 (0.8-1.1); PARTIAL THROMBOPLASTIN TIME 28 SEC (24-38); PROTHROMBIN TIME PATIENT 13.6 SEC (11.7-14.0)
[2017-12-26] MEDS ORDERED: VANCOMYCIN 1GM IVPB FOR OMNI 250 ML (08:41)
[2017-12-26] MEDS ORDERED: fentaNYL PF VIAL 100 MCG/2 ML VIAL (08:42)
[2017-12-26] MEDS ORDERED: MIDAZOLAM HCL/PF 2 MG/2 ML VIAL. (08:42)
[2017-12-26] MEDS ORDERED: LIDOCAINE WITH 8.4% SOD BICARB 3 ML DISP.SYRIN. (08:42)
[2017-12-26] MEDS ORDERED: HEPARIN for IV BOLUS 10,000 UNIT/10 ML VIAL. (08:43)
[2017-12-26] MEDS ORDERED: IODIXANOL 320MG/ML 50ML VIAL. (09:26)
[2017-12-26] MEDS ORDERED: CONTRAST GIVEN. MC (09:45)
[2017-12-26] MEDS: LIDOCAINE WITH 8.4% SOD BICARB 3 ML DISP.SYRIN. IJ (09:51)
[2017-12-26] MEDS: fentaNYL PF VIAL 100 MCG/2 ML VIAL IV (09:52)
[2017-12-26] MEDS: IODIXANOL 320MG/ML 50ML VIAL. IV (09:52)
[2017-12-26] MEDS: MIDAZOLAM HCL/PF 2 MG/2 ML VIAL. IV (09:52)
[2017-12-26] MEDS: VANCOMYCIN 1GM IVPB FOR OMNI 250 ML IV (09:53)
[2017-12-26] MEDS ORDERED: LIDOCAINE WITH 8.4% SOD BICARB 3 ML DISP.SYRIN. IJ (10:30)
[2017-12-26] MEDS ORDERED: MIDAZOLAM HCL/PF 2 MG/2 ML VIAL. IV (10:30)
[2017-12-26] MEDS ORDERED: fentaNYL PF VIAL 100 MCG/2 ML VIAL IV (10:30)
[2017-12-26] MEDS ORDERED: GELATIN SPONGE SIZE 12-7MM SPONGE. TP (10:30)
== END 2017-12-26 11:11 ==
LOC: INTRAD 07:12
DX: T82.49XA Other complication of vascular dialysis catheter, initial encounter (principal); Y83.8 Other surgical procedures as the cause of abnormal reaction of the patient, or of later complication, without mention of misadventure at the time of the procedure; Y92.89 Other specified places as the place of occurrence of the external cause; Z88.0 Allergy status to penicillin; I10 Essential (primary) hypertension; J44.9 Chronic obstructive pulmonary disease, unspecified; G47.30 Sleep apnea, unspecified; Z98.890 Other specified postprocedural states; Z90.49 Acquired absence of other specified parts of digestive tract; E66.9 Obesity, unspecified; Z68.23 Body mass index [BMI] 23.0-23.9, adult; K21.9 Gastro-esophageal reflux disease without esophagitis; Z85.41 Personal history of malignant neoplasm of cervix uteri; Z90.710 Acquired absence of both cervix and uterus; M19.90 Unspecified osteoarthritis, unspecified site; M10.9 Gout, unspecified; Z72.89 Other problems related to lifestyle; D64.9 Anemia, unspecified; Z79.01 Long term (current) use of anticoagulants
CPT/HCPCS: 36415; 36581; 75827; 77001; 85025; 85610; 85730; 99152; 99153; C1750; C1769; J1644; J2250; J3010; J3370

== ENCOUNTER 2018-04-15 15:09 | Emergency (ER) | payer MEDICARE, MEDICAID ==
[~2018-04-15] VITALS: Ht 165.1 cm; Wt 61.2 kg
[~2018-04-15 15:09] MED LIST changes: +ACET325T9 PO; +AMLO10TA4 PO; +AMLO5TAB7 PO; +CALC0.25 PO; +CIPR500T94 PO; +CYAN1TAB19 PO; +DIPH50CA PO; +ERGO500027 PO; +FERR325T14 PO; +FLUT50DI IH; +HYDR-2758 PO; -HYDROmorphone 2 MG/ML VIAL IV; +LEVO500T59 PO; -LIDOCAINE 1% PF 2 ML VIAL. ID; +LOPE1LIQ7 PO; -MORPHINE SULFATE 2 MG/ML DISP.SYRIN. IV; -ONDANSETRON PF 4 MG/2 ML VIAL. IV; -PROCHLORPERAZINE 10 MG/2 ML VIAL. IV; -PROPOFOL 20 ML IV; +SODI650T PO; -fentaNYL PF VIAL 100 MCG/2 ML VIAL IV
[2018-04-15] MEDS ORDERED: HYDROcodone/APAP 5/325MG 1 TAB TABLET PO ONE (15:15)
--- NOTE | 2018-04-15 15:27 | PHYS DOC ---
Past Medical History Past Medical History: Cancer, Dementia, Hypertension, Renal Disease, UTI, Other Additional Past Medical Histor: intestinal cancer,BLOOD TRANSFUSION, UMBILICAL HERNIA, confusion Past Surgical History: Appendectomy, Hysterectomy, Other Additional Past Surgical Histo: "intestines removed", HERNIA REPAIR Alcohol Use: Occasionally Drug Use: None Adult General Chief Complaint Chief Complaint: WRIST PAIN HPI HPI Patient is a 68 year old female with history of renal failure on dialysis Sunday, Sunday, Sunday. Who presents today complaining of a constant sharp 10 out of 10 left wrist pain that began a couple minutes prior to coming to the ED. Patient states she fell bracing herself with the left hand. Patient denies any loss of consciousness. Denies hitting her head on the ground. Review of Systems Review of Systems Constitutional: Denies fever or chills [] Musculoskeletal: Reports left wrist pain Integument: Denies rash or skin lesions [] Neurologic: Denies headache, focal weakness or sensory changes [] All other systems were reviewed and found to be within normal limits, except as documented in this note. Current Medications Current Medications Current Medications Medications (Trade) Dose Ordered Sig/Rebecca Start Time Stop Time Status Last Admin Dose Admin Acetaminophen/ Hydrocodone Bitart (Lortab 5/325) 2 tab 1X ONCE 04/15/18 15:15 04/15/18 15:18 DC 04/15/18 15:36 2 TAB Allergies Allergies Allergies Coded Allergies Type Severity Reaction Last Updated Verified Penicillins Allergy Intermediate rash 12/11/17 Yes Physical Exam Physical Exam Constitutional: Well developed, well nourished, no acute distress, non-toxic appearance. [] Skin: Warm, dry, no erythema, no rash. [] Back: No tenderness, no CVA tenderness. [] Extremities: Left wrist appears obviously deformed. There is limited range of motion to the left wrist due to pain. Full range of motion to the left fingers. Adequate radial medial and ulnar sensation to the left hand. +2 left radial pulse. Cap refill less than 2 seconds left fingers. Dialysis catheter noted on the left upper chest, dialysis fistula noted on the right upper extremity. Positive thrill and bruit Neurologic: Alert and oriented X 3, normal motor function, normal sensory function, no focal deficits noted. [] Psychologic: Affect normal, judgement normal, mood normal. [] Current Patient Data Vital Signs Vital Signs Date Time Temp Pulse Resp B/P (MAP) Pulse Ox O2 Delivery O2 Flow Rate FiO2 04/15/18 15:11 98.0 79 16 152/70 (97) 98 Room Air 98.0 EKG EKG [] Radiology/Procedures Radiology/Procedures []PROCEDURE: WRIST 3V LEFT Three-view study left wrist Clinical indications: Patient fell. Left wrist pain and swelling. FINDINGS: There is an impacted comminuted T-shaped fracture of the distal left radial metaphysis and epiphysis. There is intra-articular extension but no articular surface offset is evident. No angulation is seen. Fracture of the ulnar styloid process is seen. Radial carpal articulation is maintained. 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 IMPRESSION: Posttraumatic acute fractures of the distal left radius and ulna. Electronically signed by: Litzy Moseley MD (04/15/2018 3:39 PM) [facility] DICTATED and SIGNED BY: LITZY MOSELEY MD DATE: 04/15/18 1533 Course & Med Decision Making Course & Med Decision Making Pertinent Labs and Imaging studies reviewed. (See chart for details) This is a 68-year-old female patient presenting to the ED today with left wrist pain status post falling. Left wrist xrays interpreted by radiologist- Posttraumatic acute fractures of the distal left radius and ulna. 16:00 spoke with Janna BOND for who requested we splint patient, she needs to contact the office tomorrow morning and set up a follow-up appointment. Patient was placed in a volar splint by the cartographic technician, neurovascular exam done by me is normal. Ice elevation encouraged. Discharged with oxycodone as needed for pain. Follow-up with the orthopedic doctor by calling the office tomorrow to set up a follow-up appointment. Dragon Disclaimer Dragon Disclaimer This electronic medical record was generated, in whole or in part, using a voice recognition dictation system. Departure Departure Impression: Primary Impression: Fall from standing Additional Impressions: Radius fracture Fracture of ulnar styloid Disposition: HOME, SELF-CARE Condition: STABLE Referrals: UNKNOWN PCP NAME (PCP) NIURKA CHAN MD Call his office tomorrow and set up a follow-up appointment Patient Instructions: Fall Prevention and Home Safety, Wrist Fracture with [facility] Additional Instructions: You were evaluated in the emergency room and noted to have left wrist fractures. Please contact the provided orthopedic doctor first thing tomorrow morning and set up a follow-up appointment. Ice and elevate the affected extremity. Take the prescribed pain medications as needed for pain. Do not mix this pain medicine with any other pain medicine you have at home. Scripts Oxycodone Hcl (OXYCODONE HCL) 5 Mg Tablet 1 TAB PO QID, #20 TAB Prov: DOMINGO BROWN APRN 04/15/18 Problem Qualifiers Primary Impression: Fall from standing Encounter type: initial encounter Qualified Codes: W19.XXXA - Unspecified fall, initial encounter Additional Impressions: Radius fracture Encounter type: initial encounter Radius location: distal Fracture type: closed Fracture morphology: unspecified fracture morphology Laterality: left Qualified Codes: S52.502A - Unspecified fracture of the lower end of left radius, initial encounter for closed fracture Fracture of ulnar styloid Encounter type: initial encounter Fracture type: closed Fracture alignment : nondisplaced Laterality: left Qualified Codes: S52.615A - Nondisplaced fracture of left ulna styloid process, initial encounter for closed fracture DOMINGO BROWN APRN Apr 15, 2018 15:27
--- NOTE | 2018-04-15 15:42 | RAD ---
Three-view study left wrist Clinical indications: Patient fell. Left wrist pain and swelling. FINDINGS: There is an impacted comminuted T-shaped fracture of the distal left radial metaphysis and epiphysis. There is intra-articular extension but no articular surface offset is evident. No angulation is seen. Fracture of the ulnar styloid process is seen. Radial carpal articulation is maintained. 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 IMPRESSION: Posttraumatic acute fractures of the distal left radius and ulna. Electronically signed by: Mat Moseley MD (04/15/2018 3:39 PM) [facility]
[2018-04-15] MEDS ORDERED: OXYC5TAB95 PO ×2 (16:19→16:20)
[2018-04-15 16:30] VITALS: BP 144/77
== END 2018-04-15 16:59 | disposition home or self-care (01) ==
LOC: ER 15:09
DX: S52.502A Unspecified fracture of the lower end of left radius, initial encounter for closed fracture (principal); I12.9 Hypertensive chronic kidney disease with stage 1 through stage 4 chronic kidney disease, or unspecified chronic kidney disease; S52.615A Nondisplaced fracture of left ulna styloid process, initial encounter for closed fracture; N18.9 Chronic kidney disease, unspecified; F03.90 Unspecified dementia, unspecified severity, without behavioral disturbance, psychotic disturbance, mood disturbance, and anxiety; Z99.2 Dependence on renal dialysis; Z88.0 Allergy status to penicillin; W18.39XA Other fall on same level, initial encounter; Y93.89 Activity, other specified; Y92.89 Other specified places as the place of occurrence of the external cause; Y99.8 Other external cause status
CPT/HCPCS: 29125; 73110; 99284-25

== ENCOUNTER 2018-05-07 10:15 | Day surgery (SDC) | payer MEDICARE, MEDICAID ==
--- NOTE | 2018-05-06 13:44 | PDOC1 ---
History and Physical Date of Admission Date of Admission DATE: 05/07/18 Identification/Chief Complaint Chief Complaint left wrist fracture Source Source: Chart review History of Present Illness History of Present Illness The patient is a 68 y/o right-hand dominant female who presents today for management of her left wrist fracture. She sustained the injury when she was at home and her leg gave out on her on 04.15.2018. She caught herself with the left arm. She has been treated nonoperatively so far in short-arm cast and shoulder sling. She states the pain at fracture site has increased since her last visit. She has been dialysis for 4 months. Past Medical History Cardiovascular: HTN, Other Pulmonary: Asthma, COPD, Other CENTRAL NERVOUS SYSTEM: Dementia, Other GI: GERD, GI bleed Heme/Onc: Anemia NOS, B12 deficiency, Cancer Hepatobiliary: No pertinent hx Psych: Depression Musculoskeletal: Osteoarthritis, Other Rheumatologic: Gout Infectious disease: No pertinent hx Renal/: Acute renal failure, Chronic renal failure, Other Endocrine: No pertinent hx Past Surgical History Past Surgical History: Appendectomy, Cholecystectomy, Hernia Repair, Hysterectomy, Other Family History Family History: Cancer, Hypertension, Kidney Disease, Stroke, Other (Parkinson' s ) Family History: Parent Social History Smoke: No ALCOHOL: none Drugs: None Current Medications Current Medications Active Scripts Active Oxycodone Hcl 5 Mg Tablet 1 Tab PO QID Levaquin (Levofloxacin) 500 Mg Tablet 1 Tab PO DAILY Vitamin D2 (Ergocalciferol (Vitamin D2)) 50,000 Unit Capsule 50,000 Unit PO WEEKLY Folbic Tablet (Cyanocobalamin/Fa/Pyridoxine) 1 Each Tablet 1 Tab PO DAILY Calcitriol 0.25 Mcg Capsule 0.25 Mcg PO DAILY Reported Amlodipine Besylate 5 Mg Tablet 5 Mg PO DAILY Sodium Bicarbonate 650 Mg Tablet 1,300 Mg PO BID Ferrous Sulfate 325 Mg Tablet 325 Mg PO TIDWMEALS Flovent 50MCG Diskus (Fluticasone Propionate) 50 Mcg Disk.w.dev 50 Mcg IH BID Imodium A-D (Loperamide Hcl) 1 Mg/7.5 Ml Liquid 2 Mg PO DAILY08 Norvasc (Amlodipine Besylate) 10 Mg Tablet 10 Mg PO DAILY08 Allergies Allergies: Coded Allergies: Penicillins (Verified Allergy, Intermediate, rash, 05/03/18) Physical Exam General: Alert, Oriented X3, Cooperative, No acute distress HEENT: Atraumatic, EOMI Lungs: Normal air movement Heart: RRR Abdomen: Soft Extremities: Other (The wrist in short-arm cast. The skin is intact. Light touch sensation is normal. ) Skin: No rashes, No breakdown, No significant lesion Neuro: Normal speech, Sensation intact Psych/Mental Status: Mental status NL, Mood NL Images Images IMAGING REPORT left wrist two views of Clinical information: Followup distal radius fracture Comparison: [facility] 04/15/18 Findings Bones: No fracture of the distal radius is again demonstrated, but has to change position significantly. There is no significant radial shortening, and displacement of the joint surface. There is to be dorsal angulation but it is increased from the prior films. Joints: The distal radial articular surface joint spaces as offset due to the intra-articular fracture which is presently displaced. Soft tissue: Overlying casting material seen, the soft tissues otherwise appear normal. Impression: Interval displacement of an intra-articular distal radius fracture. There is a nondisplaced ulnar styloid fracture. Dictated and Signed Using Voice Recognition Software Neymar Salcedo MD VTE Prophylaxis Ordered VTE Prophylaxis Devices: Yes VTE Pharmacological Prophylaxi: Yes Assessment/Plan Assessment/Plan Left distal radius fracture. Her fracture has further displaced since her last visit despite being in short- arm cast. I recommended operative treatment of her fracture. She will continue wearing short-arm cast, which will be taken off in surgery. We discussed the risks and benefits of surgery, including the potential risks of infection, neurovascular injury, stiffness, need for hardware removal, malunion or nonunion , arthritis, or other potential surgical or anesthetic complications. The benefit would be improved function compared to nonoperative treatment, which is likely to displace and then cause chronic weakness and pain. We also discussed the postoperative course of immobilization, weight restrictions, and physical therapy required after surgery. After a thorough discussion of the risks and benefits of a left wrist open reduction internal fixation. She will follow up with me 10-14 days postop. JUAN CARLOS TOBIAS May 06, 2018 13:44
[~2018-05-07] VITALS: Ht 160 cm; Wt 61.2 kg
[~2018-05-07 10:15] MED LIST changes: +CLINDAMYCIN 900MG PREMIX 50 ML IV PRN; +HYDROmorphone 2 MG/ML VIAL IV PRN; +IV RINGERS,LACTATED 1000ML 1,000 ML IV SCH; +LIDOCAINE 1% PF 2 ML VIAL. ID PRN; +ONDANSETRON PF 4 MG/2 ML VIAL. IV PRN; +OXYC5TAB95 PO; +PROCHLORPERAZINE 10 MG/2 ML VIAL. IV PRN; +fentaNYL PF VIAL 100 MCG/2 ML VIAL IV PRN
[2018-05-07] MEDS ORDERED: BUPIVACAINE-EPI 0.5%-1:200000 50 ML VIAL. ONE (11:38)
[2018-05-07 13:04] LABS: CALCIUM 9.1 mg/dL (8.5-10.1); CREATININE 2.9 mg/dL (0.6-1.0); GFR 16.1; POTASSIUM 3.4 mmol/L (3.5-5.1)
[2018-05-07] MEDS ORDERED: fentaNYL PF VIAL 100 MCG/2 ML VIAL ONE (13:25)
[2018-05-07] MEDS ORDERED: PROPOFOL 20 ML IV ONE (14:35)
[2018-05-07] MEDS ORDERED: ONDANSETRON PF 4 MG/2 ML VIAL. ONE (14:35)
[2018-05-07] MEDS ORDERED: DEXAMETHASONE SOD PHOS 20 MG/5 ML VIAL. ONE (14:35)
[2018-05-07] MEDS ORDERED: SEVOFLURANE 61 TO 120 MINUTES. IH ONE (14:35)
[2018-05-07] MEDS ORDERED: PHENYLEPHRINE in 0.9% NACL PF 1 MG/10 ML SYRINGE. IV ONE (14:36)
--- NOTE | 2018-05-07 15:26 | PDOC4 ---
Operative Note Operative Note Date of Procedure: May 07, 2018 Preoperative diagnosis: Intra-articular fracture of lower end of left radius , subsequent encounter for closed fracture, with malunion Postoperative diagnosis: same Procedure: Open treatment of distal radial intra-articular fracture with internal fixation of 3 or more fragments CPT 14430 Surgeon: Niurka Salcedo MD. Asst.: Janna Quan PA-C Anesthesia Type: General EBL: 25 mL Specimens: none Drains: none Complications: none Tourniquet time: 49 minutes Implant Company: [employer] INDICATION FOR PROCEDURE: The patient is a 68 -year-old who fell and had a left distal radius fracture. The initial x-rays showed intra-articular extension but minimal displacement and initially this was treated nonoperatively. Follow-up x- rays in the cast showed displacement of the articular surface, and so I now recommended surgery to the patient. I recommended open treatment with internal fixation to correct the impending malunion. We talked about potential risks of surgery such as bleeding, infection, stiffness, need for hardware removal or other potential surgical or anesthetic complications. The patient stated understanding of the risks, benefits and alternatives. Written consent was obtained and the patient desired to proceed with surgery. PROCEDURE IN DETAIL: The patient was identified in the preoperative holding area. The correct left wrist was marked by me. The patient was taken to the operating room, where a general anesthetic was used. Preoperative antibiotics were given intravenously. A timeout procedure was performed. Tourniquet was used on the upper left arm. The limb was prepped sterilely and sterile drapes were applied. An Esmarch bandage was used to exsanguinate the limb and the tourniquet was inflated to 250 mmHg. The volar approach of [place] was used distally. Sharp dissection was used and Bovie electrocautery was used as needed for hemostasis. The flexor carpi radialis tendon was retracted ulnarly to protect the median nerve. The brachioradialis was retracted radially to protect the radial artery. My catering assistant used small Hohmann retractors on the radial side of the distal fragment and ulnar side of the proximal fragment to help maintain reduction. A Weitlaner retractor was also placed. Subperiosteal dissection of the pronator quadratus was performed after an L incision was made and the muscle was reflected across the fracture site. The fracture was not fully healed and was still mobile, however there was new bone and impending malunion, and some of the new bone was removed with rongeurs. The fracture was disimpacted with a [place] elevator. Janna assisted with the reduction by applying distal traction while applied the clamps and a K wire. A K-wire was used for preliminary stabilization of the major radial styloid fragment and as a reduction tool after it was applied. The small image intensifier device was used to check the reduction, and I used the image intensifier throughout the case and interpreted all of the images myself. Due to the partial healing of the fracture, reduction with K wires and bone clamps alone was inadequate. I elected to use the plate as a manipulation tool. I used the [employer] plate system which has a dedicated instrument for such application. I used the 25 angulation tool, to apply the plate anatomically at the distal portion of the fracture but with the proximal aspect of the plate tilted 25 away from the bone, and angled slightly toward the ulna. This was done so that additional reduction would be obtained when the plate is reduced to the radial shaft. The bone quality was poor, and the initial nonlocking screw in the distal segment achieved no purchase. All of the distal screws are locking and were all applied before levering the plate. Next a 25 angle tool was removed, and the plate was levered in position over the radial shaft, which reduced the fracture nicely, essentially anatomic reduction of the articular surface and buddhist of the volar tilt, and radial styloid length. Again the bone quality is poor, and initial nonlocking screw had weak purchase. I used 3 bicortical locking screws in the shaft. The alignment now was satisfactory on the AP lateral and oblique views, with reduction of the articular surface fragments and buddhist of volar tilt and radial length. After satisfactory reduction and satisfactory fixation with all the screws, final images were taken. Copious irrigation was used. The tourniquet was released and Bovie electrocautery was used for hemostasis. Bupivacaine 0.5% with epinephrine was injected. The incision was closed with 3-0 Vicryl in the subcutaneous tissues and eccy in the skin. My catering assistant did the skin closure. Xeroform and a sterile dressing and a volar splint were applied. Needle and sponge counts were correct. There were no apparent complications NIURKA SALCEDO MD May 07, 2018 15:26
[2018-05-07] MEDS: fentaNYL PF VIAL 100 MCG/2 ML VIAL IV PRN ×2 (15:28→15:47)
[2018-05-07] MEDS ORDERED: oxyCODONE/APAP 5/325 1 TAB TABLET PO ONE (16:15)
[2018-05-07] MEDS: MORPHINE SULFATE 2 MG/ML VIAL. IV PRN ×2 (16:21→16:42)
[2018-05-07 16:43] VITALS: BP 169/84
== END 2018-05-07 18:29 | disposition home or self-care (01) ==
LOC: SURG 10:15
PROVIDERS: ATTEND Orthopaedic Surgery
DX: S52.572P Other intraarticular fracture of lower end of left radius, subsequent encounter for closed fracture with malunion (principal); Z88.0 Allergy status to penicillin; J44.9 Chronic obstructive pulmonary disease, unspecified; F03.90 Unspecified dementia, unspecified severity, without behavioral disturbance, psychotic disturbance, mood disturbance, and anxiety; K21.9 Gastro-esophageal reflux disease without esophagitis; D64.9 Anemia, unspecified; E53.8 Deficiency of other specified B group vitamins; F32.9 Major depressive disorder, single episode, unspecified; M19.90 Unspecified osteoarthritis, unspecified site; M10.9 Gout, unspecified; I12.9 Hypertensive chronic kidney disease with stage 1 through stage 4 chronic kidney disease, or unspecified chronic kidney disease; N18.9 Chronic kidney disease, unspecified; Z90.49 Acquired absence of other specified parts of digestive tract; Z90.710 Acquired absence of both cervix and uterus; Z98.890 Other specified postprocedural states; Z82.49 Family history of ischemic heart disease and other diseases of the circulatory system; Z82.3 Family history of stroke; Z82.0 Family history of epilepsy and other diseases of the nervous system; Z84.1 Family history of disorders of kidney and ureter; Z79.899 Other long term (current) drug therapy; X58.XXXA Exposure to other specified factors, initial encounter; Y93.89 Activity, other specified; Y92.89 Other specified places as the place of occurrence of the external cause; Y99.8 Other external cause status
CPT/HCPCS: 25609; 36415; 80048; A7015; C1713; J0780; J1100; J2270; J2370; J2405; J2704; J3010; J3490; J7030

== ENCOUNTER 2019-05-28 11:40 | Inpatient (IN) | payer MEDICAID, MEDICARE ==
[~2019-05-28] VITALS: Ht 165.1 cm; Wt 60.4 kg
[~2019-05-28 11:40] MED LIST changes: +AMLO5TAB10 PO; -AMLO5TAB7 PO; -CLINDAMYCIN 900MG PREMIX 50 ML IV PRN; -HYDR-2758 PO; +HYDR-2761 PO; -HYDROmorphone 2 MG/ML VIAL IV PRN; -IV RINGERS,LACTATED 1000ML 1,000 ML IV SCH; -LIDOCAINE 1% PF 2 ML VIAL. ID PRN; -ONDANSETRON PF 4 MG/2 ML VIAL. IV PRN; +OXYC5TAB4 PO; -OXYC5TAB95 PO; -PROCHLORPERAZINE 10 MG/2 ML VIAL. IV PRN; -fentaNYL PF VIAL 100 MCG/2 ML VIAL IV PRN
[2019-05-28] MEDS ORDERED: FAMOTIDINE 20 MG/2 ML VIAL IVP ONE (12:30)
[2019-05-28 12:45] LABS: BILIRUBIN,URINE NEGATIVE (NEG); CLARITY,URINE CLEAR; COLOR,URINE YELLOW; NITRITE,URINE NEGATIVE (NEG); PH,URINE 5.5; PROTEIN,URINE 30 mg/dL (NEG-TRACE); UROBILINOGEN,URINE 0.2 mg/dL (0.2 mg/dL)
[2019-05-28 12:51] LABS: FECAL OB PT POSITIVE (NEG)
[2019-05-28 12:56] LABS: BACTERIA,URINE MODERATE /HPF (0-FEW); SQUAMOUS EPITHELIAL CELL,UR MANY /LPF; WBC,URINE 20-40 /HPF (0-4)
--- NOTE | 2019-05-28 12:58 | RAD ---
Examination: CT ABDOMEN PELVIS WO CONTRAST History: Rectal bleeding Comparison/Correlation: 12/06/2017 CT abdomen and pelvis without contrast Findings: Axial images of the abdomen and pelvis were obtained without contrast. Sagittal and coronal reformatted images were provided. Minimal linear scarring or atelectasis of the lung bases noted. Liver, spleen, pancreas, and adrenal glands are unremarkable. Mild bilateral adrenal gland hyperplasia is similar to the prior exam. Right renal cortical atrophy is present. Multiple right renal calyceal calculi are present. These are especially noted at the inferior pole. Punctate right renal superior pole calyceal calculus is also present. No hydronephrosis. Left kidney is unremarkable. Large quantity of stool is noted to distend the colon. Nonspecific distention of the distal ileum is noted at the right iliac fossa level. No significant distention of small bowel more proximally however. No large abdominal or pelvic lymph nodes. No inflammatory changes about the cecum identified. Surgical clips involving the right iliac fossa is noted. Surgical clips in the retroperitoneal region at the pelvic level. Bladder is mostly decompressed. Facet joint degenerative changes through the lumbar spine are present. Transitional L5 vertebra noted with pseudoarticulation of the left transverse process with S1. Impression: Large quantity of stool in the colon. No acute inflammation evident. Distention of the right lower quadrant ileal loops of bowel. No obstruction suggested more proximally. Findings may represent focal ileus. Correlate clinically determining follow-up. Room Nonobstructive right renal calculi. Renal cortical atrophy. PQRS Compliance Statement: One or more of the following individualized dose reduction techniques were utilized for this examination: 1. Automated exposure control 2. Adjustment of the mA and/or kV according to patient size 3. Use of iterative reconstruction technique Electronically signed by: Phil Welch MD (05/28/2019 12:55 PM) [facility]
[2019-05-28 13:01] LABS: BASO # 0.1 x10^3/uL (0.0-0.2); BASO % 2 % (0-3); EOS # 0.1 x10^3/uL (0.0-0.7); EOS % 3 % (0-3); HEMATOCRIT 34.1 % (36.0-47.0); HEMOGLOBIN 10.8 g/dL (12.0-15.5); LYMPH # 1.1 x10^3/uL (1.0-4.8); LYMPH % 22 % (24-48); MEAN CORPUSCULAR HEMOGLOBIN 30 pg (25-35); MEAN CORPUSCULAR HGB CONC 32 g/dL (31-37); MEAN CORPUSCULAR VOLUME 95 fL (79-100); MONO # 0.4 x10^3/uL (0.0-1.1); MONO % 9 % (0-9); NEUT # 3.3 x10^3/uL (1.8-7.7); NEUT % 65 % (31-73); PLATELET COUNT 119 x10^3/uL (140-400); RED BLOOD COUNT 3.57 x10^6/uL (3.50-5.40); RED CELL DISTRIBUTION WIDTH 14.5 % (11.5-14.5)
--- NOTE | 2019-05-28 13:21 | PHYS DOC ---
Past Medical History Past Medical History: Cancer, Dementia, Hypertension, Renal Disease, Renal Failure, UTI, Other Additional Past Medical Histor: intestinal cancer,BLOOD TRANSFUSION, UMBILICAL HERNIA, confusion Past Surgical History: Appendectomy, Hysterectomy, Other Additional Past Surgical Histo: "intestines removed", HERNIA REPAIR,DIALYSIS FISTULA RT UPPER ARM Alcohol Use: Occasionally Drug Use: None Adult General Chief Complaint Chief Complaint: RECTAL BLEED [facility] HPI Patient is a 69 year old female with history of hypertension, dementia, end- stage kidney disease on dialysis Sunday last dialyzed on Sunday this week who presents to the ED today complaining of rectal bleeding for 2-3 weeks. Patient states she has noted blood whenever she uses the bathroom. Daughter reports patient had a bowel movement yesterday and there was blood on the toilet but she could not figure out whether the blood was coming from her urethra or her rectum region. Patient herself states she believes it is coming from her rectal region. She states she still produces urine but has not noticed any blood in the urine. Patient denies any abdominal pain. Denies any nausea vomiting. Review of Systems Review of Systems Constitutional: Denies fever or chills [] Eyes: Denies change in visual acuity, redness, or eye pain [] HENT: Denies nasal congestion or sore throat [] Respiratory: Denies cough or shortness of breath [] Cardiovascular: No additional information not addressed in HPI [] GI: Reports rectal bleeding. Denies abdominal pain, nausea, vomiting, bloody stools or diarrhea [] : Denies dysuria or hematuria [] Musculoskeletal: Denies back pain or joint pain [] Integument: Denies rash or skin lesions [] Neurologic: Denies headache, focal weakness or sensory changes [] Endocrine: Denies polyuria or polydipsia [] All other systems were reviewed and found to be within normal limits, except as documented in this note. Current Medications Current Medications Current Medications Medications (Trade) Dose Ordered Sig/Rebecca Start Time Stop Time Status Last Admin Dose Admin Famotidine (Pepcid Vial) 20 mg 1X ONCE 05/28/19 12:30 05/28/19 12:31 DC 05/28/19 13:04 20 MG Allergies Allergies Allergies Coded Allergies Type Severity Reaction Last Updated Verified Penicillins Allergy Intermediate rash 05/07/18 Yes Physical Exam Physical Exam Constitutional: Well developed, well nourished, no acute distress, non-toxic appearance. [] HENT: Normocephalic, atraumatic, bilateral external ears normal, oropharynx moist, no oral exudates, nose normal. [] Eyes: PERRLA, EOMI, conjunctiva normal, no discharge. [] Neck: Normal range of motion, no tenderness, supple, no stridor. [] Cardiovascular:Heart rate regular rhythm, no murmur [] Lungs & Thorax: Bilateral breath sounds clear to auscultation [] Abdomen: Old healed surgical incision noted midline abdomen. Bowel sounds no rmal, soft, no tenderness, no masses, no pulsatile masses. [] Rectal exam-external rectum appears normal, no internal or external masses noted. Skin: Warm, dry, no erythema, no rash. [] Back: No tenderness, no CVA tenderness. [] Extremities: No tenderness, no cyanosis, no clubbing, ROM intact, no edema. [] Neurologic: Alert and oriented X 3, normal motor function, normal sensory function, no focal deficits noted. [] Psychologic: Affect normal, judgement normal, mood normal. [] Current Patient Data Vital Signs Vital Signs Date Time Temp Pulse Resp B/P (MAP) Pulse Ox O2 Delivery O2 Flow Rate FiO2 05/28/19 15:02 78 18 147/78 (101) 98 Room Air 05/28/19 12:02 97.7 97.7 Lab Values Laboratory Tests Test 05/28/19 12:33 05/28/19 12:40 05/28/19 12:53 Urine Collection Type Unknown Urine Color Yellow Urine Clarity Clear Urine pH 5.5 Urine Specific [place] 1.015 Urine Protein 30 mg/dL (NEG-TRACE) Urine Glucose (UA) Negative mg/dL (NEG) Urine Ketones (Stick) Negative mg/dL (NEG) Urine Blood Moderate (NEG) Urine Nitrite Negative (NEG) Urine Bilirubin Negative (NEG) Urine Urobilinogen Dipstick 0.2 mg/dL (0.2 mg/dL) Urine Leukocyte Esterase Moderate (NEG) Urine RBC 11-20 /HPF (0-2) Urine WBC 20-40 /HPF (0-4) Urine Squamous Epithelial Cells Many /LPF Urine Bacteria Moderate /HPF (0-FEW) Stool Occult Blood Positive (NEG) White Blood Count 5.0 x10^3/uL (4.0-11.0) Red Blood Count 3.57 x10^6/uL (3.50-5.40) Hemoglobin 10.8 g/dL (12.0-15.5) L Hematocrit 34.1 % (36.0-47.0) L Mean Corpuscular Volume 95 fL (79-100) Mean Corpuscular Hemoglobin 30 pg (25-35) Mean Corpuscular Hemoglobin Concent 32 g/dL (31-37) Red Cell Distribution Width 14.5 % (11.5-14.5) Platelet Count 119 x10^3/uL (140-400) L Neutrophils (%) (Auto) 65 % (31-73) Lymphocytes (%) (Auto) 22 % (24-48) L Monocytes (%) (Auto) 9 % (0-9) Eosinophils (%) (Auto) 3 % (0-3) Basophils (%) (Auto) 2 % (0-3) Neutrophils # (Auto) 3.3 x10^3/uL (1.8-7.7) Lymphocytes # (Auto) 1.1 x10^3/uL (1.0-4.8) Monocytes # (Auto) 0.4 x10^3/uL (0.0-1.1) Eosinophils # (Auto) 0.1 x10^3/uL (0.0-0.7) Basophils # (Auto) 0.1 x10^3/uL (0.0-0.2) Sodium Level 146 mmol/L (136-145) H Potassium Level 4.0 mmol/L (3.5-5.1) Chloride Level 107 mmol/L (98-107) Carbon Dioxide Level 24 mmol/L (21-32) Anion Gap 15 (6-14) H Blood Urea Nitrogen 59 mg/dL (7-20) H Creatinine 5.2 mg/dL (0.6-1.0) H Estimated GFR (Cockcroft-Gault) 8.2 BUN/Creatinine Ratio 11 (6-20) Glucose Level 70 mg/dL (70-99) Calcium Level 8.1 mg/dL (8.5-10.1) L Total Bilirubin 0.3 mg/dL (0.2-1.0) Aspartate Amino Transferase (AST) 17 U/L (15-37) Alanine Aminotransferase (ALT) 14 U/L (14-59) Alkaline Phosphatase 75 U/L (46-116) Total Protein 7.1 g/dL (6.4-8.2) Albumin 3.5 g/dL (3.4-5.0) Albumin/Globulin Ratio 1.0 (1.0-1.7) Laboratory Tests 05/28/19 12:53 Laboratory Tests 05/28/19 12:53 EKG EKG [] Radiology/Procedures Radiology/Procedures []PROCEDURE: CT ABDOMEN PELVIS WO CONTRAST Examination: CT ABDOMEN PELVIS WO CONTRAST History: Rectal bleeding Comparison/Correlation: 12/06/2017 CT abdomen and pelvis without contrast Findings: Axial images of the abdomen and pelvis were obtained without contrast. Sagittal and coronal reformatted images were provided. Minimal linear scarring or atelectasis of the lung bases noted. Liver, spleen, pancreas, and adrenal glands are unremarkable. Mild bilateral adrenal gland hyperplasia is similar to the prior exam. Right renal cortical atrophy is present. Multiple right renal calyceal calculi are present. These are especially noted at the inferior pole. Punctate right renal superior pole calyceal calculus is also present. No hydronephrosis. Left kidney is unremarkable. Large quantity of stool is noted to distend the colon. Nonspecific distention of the distal ileum is noted at the right iliac fossa level. No significant distention of small bowel more proximally however. No large abdominal or pelvic lymph nodes. No inflammatory changes about the cecum identified. Surgical clips involving the right iliac fossa is noted. Surgical clips in the retroperitoneal region at the pelvic level. Bladder is mostly decompressed. Facet joint degenerative changes through the lumbar spine are present. Transitional L5 vertebra noted with pseudoarticulation of the left transverse process with S1. Impression: Large quantity of stool in the colon. No acute inflammation evident. Distention of the right lower quadrant ileal loops of bowel. No obstruction suggested more proximally. Findings may represent focal ileus. Correlate clinically determining follow-up. Room Nonobstructive right renal calculi. Renal cortical atrophy. PQRS Compliance Statement: One or more of the following individualized dose reduction techniques were utilized for this examination: 1. Automated exposure control 2. Adjustment of the mA and/or kV according to patient size 3. Use of iterative reconstruction technique Electronically signed by: Phil Pyle MD (05/28/2019 12:55 PM) [facility] DICTATED and SIGNED BY: PHIL PYLE MD DATE: 05/28/19 3904 Course & Med Decision Making Course & Med Decision Making Pertinent Labs and Imaging studies reviewed. (See chart for details) This is a 69-year-old female patient presenting to the ED today with rectal bleeding for 2-3 weeks. CBC with a normal WBC, hemoglobin 10.8, hematocrit 34.1, CMP with sodium of 146, BUN 15, creatinine 5.2 consistent with end-stage renal disease, potassium is normal. Urinalysis is noted for blood as well as leukocytes. Positive Hemoccult. CT of the abdomen and pelvic was noted for constipation and possible focal ileus. Patient was given Protonix in the ED. I spoke to Dr. Estrada, he states this patient was seen by the DIRECTOR OF COLLECTIONS AND ARCHIVES in the office and requested patient to be admitted under HIMS Spoke with Dr. Bernabe who accepted patient for admission, routine consult placed for nephrology and GI Dragon Disclaimer Dragon Disclaimer This electronic medical record was generated, in whole or in part, using a voice recognition dictation system. Departure Departure Impression: Primary Impression: Rectal bleeding Additional Impressions: Anemia UTI (urinary tract infection) Disposition: 09 ADMITTED INPATIENT Condition: STABLE Referrals: J CARLOS ESTRADA MD (PCP) Problem Qualifiers Additional Impressions: Anemia Anemia type: unspecified type Qualified Codes: D64.9 - Anemia, unspecified UTI (urinary tract infection) Urinary tract infection type: site unspecified Hematuria presence: with hematuria Qualified Codes: N39.0 - Urinary tract infection, site not specified; R31.9 - Hematuria, unspecified DOMINGO BROWN APRN May 28, 2019 13:21
[2019-05-28 13:57] LABS: CALCIUM 8.1 mg/dL (8.5-10.1); CREATININE 5.2 mg/dL (0.6-1.0); GFR 8.2
[2019-05-28 14:03] LABS: ALBUMIN 3.5 g/dL (3.4-5.0); TOTAL BILIRUBIN 0.3 mg/dL (0.2-1.0); TOTAL PROTEIN 7.1 g/dL (6.4-8.2)
[2019-05-28] MEDS ORDERED: ONDANSETRON PF 4 MG/2 ML VIAL. IV PRN ×2 (16:00→19:00)
--- NOTE | 2019-05-28 16:11 | PDOC1 ---
History and Physical Date of Admission Date of Admission DATE: 05/28/19 TIME: 16:10 Identification/Chief Complaint Chief Complaint seen in er 69 year old female with history of hypertension, dementia, end- stage kidney disease on dialysis Sunday last dialyzed on Sunday this week presents to the ED today complaining of rectal bleeding for 2-3 weeks. Patient states she has noted blood whenever she uses the bathroom. patient had a bowel movement yesterday and there was blood on the toilet but she could not figure out whether the blood was coming from her urethra or her rectum region. she believes it is coming from her rectal region Past Medical History Past Medical History Past Medical History Past Medical History Past Medical History: Cancer, Dementia, Hypertension, Renal Disease, Renal Failure, UTI, Other Additional Past Medical Histor: intestinal cancer,BLOOD TRANSFUSION, UMBILICAL HERNIA, confusion Past Surgical History: Appendectomy, Hysterectomy, Other Additional Past Surgical Histo: "intestines removed", HERNIA REPAIR,DIALYSIS FISTULA RT UPPER ARM Alcohol Use: Occasionally Drug Use: None Past Medical History Cardiovascular: HTN, Other Pulmonary: Asthma, COPD, Other CENTRAL NERVOUS SYSTEM: Dementia, Other GI: GERD, GI bleed Heme/Onc: Anemia NOS, B12 deficiency, Cancer Hepatobiliary: No pertinent hx Psych: Depression Musculoskeletal: Osteoarthritis, Other Rheumatologic: Gout Infectious disease: No pertinent hx Renal/: Acute renal failure, Chronic renal failure, Other Endocrine: No pertinent hx Past Surgical History Past Surgical History: Appendectomy, Cholecystectomy, Hernia Repair, Hysterectomy, Other Family History Family History: Cancer, Hypertension, Kidney Disease, Stroke, Other (Parkinson's ) Family History: Parent Social History Smoke: No ALCOHOL: none Drugs: None Cardiovascular: HTN, Other Pulmonary: Asthma, COPD, Other CENTRAL NERVOUS SYSTEM: Dementia, Other GI: GERD, GI bleed Heme/Onc: Anemia NOS, B12 deficiency, Cancer Hepatobiliary: No pertinent hx Psych: Depression Musculoskeletal: Osteoarthritis, Other Rheumatologic: Gout Infectious disease: No pertinent hx Renal/: Acute renal failure, Chronic renal failure, Other Endocrine: No pertinent hx Past Surgical History Past Surgical History: Appendectomy, Cholecystectomy, Hernia Repair, Hysterecto my, Other Family History Family History: Cancer, Hypertension, Kidney Disease, Stroke, Other Family History: Parent Social History Smoke: No ALCOHOL: none Drugs: None Current Problem List Problem List Problems Medical Problems: (1) Rectal bleeding Status: Acute Current Medications Current Medications Current Medications Famotidine (Pepcid Vial) 20 mg 1X ONCE IVP Last administered on 05/28/19at 13:04; Start 05/28/19 at 12:30; Stop 05/28/19 at 12:31; Status DC Ondansetron HCl (Zofran) 4 mg PRN Q8HRS PRN IV NAUSEA/VOMITING; Start 05/28/19 at 16:00; Stop 05/29/19 at 15:59 Active Scripts Active Oxycodone Hcl 5 Mg Tablet 1 Tab PO QID Vitamin D2 (Ergocalciferol (Vitamin D2)) 50,000 Unit Capsule 50,000 Unit PO WEEKLY Folbic Tablet (Cyanocobalamin/Fa/Pyridoxine) 1 Each Tablet 1 Tab PO DAILY Calcitriol 0.25 Mcg Capsule 0.25 Mcg PO DAILY Reported Sodium Bicarbonate 650 Mg Tablet 1,300 Mg PO BID Ferrous Sulfate 325 Mg Tablet 325 Mg PO TIDWMEALS Norvasc (Amlodipine Besylate) 10 Mg Tablet 10 Mg PO DAILY08 Allergies Allergies: Coded Allergies: Penicillins (Verified Allergy, Intermediate, rash, 05/07/18) ROS Review of System Review of Systems Review of Systems Constitutional: Denies fever or chills [] Eyes: Denies change in visual acuity, redness, or eye pain [] HENT: Denies nasal congestion or sore throat [] Respiratory: Denies cough or shortness of breath [] Cardiovascular: No additional information not addressed in HPI [] GI: Reports rectal bleeding. Denies abdominal pain, nausea, vomiting, ///pos bloody stools [] : Denies dysuria or hematuria [] Musculoskeletal: Denies back pain or joint pain [] Integument: Denies rash or skin lesions [] Neurologic: Denies headache, focal weakness or sensory changes [] Endocrine: Denies polyuria or polydipsia [] 14 pt systems were reviewed and found to be within normal limits, except as documented Physical Exam Physical Exam Physical Exam Physical Exam Constitutional: Well developed, well nourished, no acute distress, non-toxic appearance. [] HENT: Normocephalic, atraumatic, bilateral external ears normal, oropharynx moist, no oral exudates, nose normal. [] Eyes: PERRLA, EOMI, conjunctiva normal, no discharge. [] Neck: Normal range of motion, no tenderness, supple, no stridor. [] Cardiovascular:Heart rate regular rhythm, no murmur [] Lungs & Thorax: Bilateral breath sounds clear to auscultation [] Abdomen: Old healed surgical incision noted midline abdomen. Bowel sounds normal, soft, no tenderness, no masses, no pulsatile masses. [] Rectal exam-external rectum appears normal, no internal or external masses noted. by er nurse Skin: Warm, dry, no erythema, no rash. [] Back: No tenderness, no CVA tenderness. [] Extremities: No tenderness, no cyanosis, no clubbing, ROM intact, no edema. [] Neurologic: Alert and oriented X 3, normal motor function, normal sensory function, no focal deficits noted. [] Psychologic: Affect normal, judgment normal, mood normal. [] General: Alert, Oriented X3, Cooperative, No acute distress HEENT: EOMI, Mucous membr. moist/pink Lungs: Clear to auscultation, Normal air movement Breasts: Not examined PELVIC: Examination not indicated Extremities: No cyanosis Neuro: Normal speech, Cranial nerves 3-12 NL Psych/Mental Status: Mental status NL, Mood NL Vitals Vitals Vital Signs Date Time Temp Pulse Resp B/P (MAP) Pulse Ox O2 Delivery O2 Flow Rate FiO2 05/28/19 13:02 72 16 124/70 (88) 100 Room Air 05/28/19 12:02 97.7 97.7 Labs Labs Laboratory Tests Test 05/28/19 12:33 05/28/19 12:40 05/28/19 12:53 Urine Collection Type Unknown Urine Color Yellow Urine Clarity Clear Urine pH 5.5 Urine Specific [place] 1.015 Urine Protein 30 mg/dL (NEG-TRACE) Urine Glucose (UA) Negative mg/dL (NEG) Urine Ketones (Stick) Negative mg/dL (NEG) Urine Blood Moderate (NEG) Urine Nitrite Negative (NEG) Urine Bilirubin Negative (NEG) Urine Urobilinogen Dipstick 0.2 mg/dL (0.2 mg/dL) Urine Leukocyte Esterase Moderate (NEG) Urine RBC 11-20 /HPF (0-2) Urine WBC 20-40 /HPF (0-4) Urine Squamous Epithelial Cells Many /LPF Urine Bacteria Moderate /HPF (0-FEW) Stool Occult Blood Positive (NEG) White Blood Count 5.0 x10^3/uL (4.0-11.0) Red Blood Count 3.57 x10^6/uL (3.50-5.40) Hemoglobin 10.8 g/dL (12.0-15.5) Hematocrit 34.1 % (36.0-47.0) Mean Corpuscular Volume 95 fL (79-100) Mean Corpuscular Hemoglobin 30 pg (25-35) Mean Corpuscular Hemoglobin Concent 32 g/dL (31-37) Red Cell Distribution Width 14.5 % (11.5-14.5) Platelet Count 119 x10^3/uL (140-400) Neutrophils (%) (Auto) 65 % (31-73) Lymphocytes (%) (Auto) 22 % (24-48) Monocytes (%) (Auto) 9 % (0-9) Eosinophils (%) (Auto) 3 % (0-3) Basophils (%) (Auto) 2 % (0-3) Neutrophils # (Auto) 3.3 x10^3/uL (1.8-7.7) Lymphocytes # (Auto) 1.1 x10^3/uL (1.0-4.8) Monocytes # (Auto) 0.4 x10^3/uL (0.0-1.1) Eosinophils # (Auto) 0.1 x10^3/uL (0.0-0.7) Basophils # (Auto) 0.1 x10^3/uL (0.0-0.2) Sodium Level 146 mmol/L (136-145) Potassium Level 4.0 mmol/L (3.5-5.1) Chloride Level 107 mmol/L (98-107) Carbon Dioxide Level 24 mmol/L (21-32) Anion Gap 15 (6-14) Blood Urea Nitrogen 59 mg/dL (7-20) Creatinine 5.2 mg/dL (0.6-1.0) Estimated GFR (Cockcroft-Gault) 8.2 BUN/Creatinine Ratio 11 (6-20) Glucose Level 70 mg/dL (70-99) Calcium Level 8.1 mg/dL (8.5-10.1) Total Bilirubin 0.3 mg/dL (0.2-1.0) Aspartate Amino Transf (AST/SGOT) 17 U/L (15-37) Alanine Aminotransferase (ALT/SGPT) 14 U/L (14-59) Alkaline Phosphatase 75 U/L (46-116) Total Protein 7.1 g/dL (6.4-8.2) Albumin 3.5 g/dL (3.4-5.0) Albumin/Globulin Ratio 1.0 (1.0-1.7) Laboratory Tests Test 05/28/19 12:33 05/28/19 12:40 05/28/19 12:53 Urine Collection Type Unknown Urine Color Yellow Urine Clarity Clear Urine pH 5.5 Urine Specific [place] 1.015 Urine Protein 30 mg/dL (NEG-TRACE) Urine Glucose (UA) Negative mg/dL (NEG) Urine Ketones (Stick) Negative mg/dL (NEG) Urine Blood Moderate (NEG) Urine Nitrite Negative (NEG) Urine Bilirubin Negative (NEG) Urine Urobilinogen Dipstick 0.2 mg/dL (0.2 mg/dL) Urine Leukocyte Esterase Moderate (NEG) Urine RBC 11-20 /HPF (0-2) Urine WBC 20-40 /HPF (0-4) Urine Squamous Epithelial Cells Many /LPF Urine Bacteria Moderate /HPF (0-FEW) Stool Occult Blood Positive (NEG) White Blood Count 5.0 x10^3/uL (4.0-11.0) Red Blood Count 3.57 x10^6/uL (3.50-5.40) Hemoglobin 10.8 g/dL (12.0-15.5) Hematocrit 34.1 % (36.0-47.0) Mean Corpuscular Volume 95 fL (79-100) Mean Corpuscular Hemoglobin 30 pg (25-35) Mean Corpuscular Hemoglobin Concent 32 g/dL (31-37) Red Cell Distribution Width 14.5 % (11.5-14.5) Platelet Count 119 x10^3/uL (140-400) Neutrophils (%) (Auto) 65 % (31-73) Lymphocytes (%) (Auto) 22 % (24-48) Monocytes (%) (Auto) 9 % (0-9) Eosinophils (%) (Auto) 3 % (0-3) Basophils (%) (Auto) 2 % (0-3) Neutrophils # (Auto) 3.3 x10^3/uL (1.8-7.7) Lymphocytes # (Auto) 1.1 x10^3/uL (1.0-4.8) Monocytes # (Auto) 0.4 x10^3/uL (0.0-1.1) Eosinophils # (Auto) 0.1 x10^3/uL (0.0-0.7) Basophils # (Auto) 0.1 x10^3/uL (0.0-0.2) Sodium Level 146 mmol/L (136-145) Potassium Level 4.0 mmol/L (3.5-5.1) Chloride Level 107 mmol/L (98-107) Carbon Dioxide Level 24 mmol/L (21-32) Anion Gap 15 (6-14) Blood Urea Nitrogen 59 mg/dL (7-20) Creatinine 5.2 mg/dL (0.6-1.0) Estimated GFR (Cockcroft-Gault) 8.2 BUN/Creatinine Ratio 11 (6-20) Glucose Level 70 mg/dL (70-99) Calcium Level 8.1 mg/dL (8.5-10.1) Total Bilirubin 0.3 mg/dL (0.2-1.0) Aspartate Amino Transf (AST/SGOT) 17 U/L (15-37) Alanine Aminotransferase (ALT/SGPT) 14 U/L (14-59) Alkaline Phosphatase 75 U/L (46-116) Total Protein 7.1 g/dL (6.4-8.2) Albumin 3.5 g/dL (3.4-5.0) Albumin/Globulin Ratio 1.0 (1.0-1.7) Images Images SEX: F EXAM STATUS: REG ER ORD. PHYSICIAN: DOMINGO BROWN APRN REASON: rectal bleeding PROCEDURE: CT ABDOMEN PELVIS WO CONTRAST Examination: CT ABDOMEN PELVIS WO CONTRAST History: Rectal bleeding Comparison/Correlation: 12/06/2017 CT abdomen and pelvis without contrast Findings: Axial images of the abdomen and pelvis were obtained without contrast. Sagittal and coronal reformatted images were provided. Minimal linear scarring or atelectasis of the lung bases noted. Liver, spleen, pancreas, and adrenal glands are unremarkable. Mild bilateral adrenal gland hyperplasia is similar to the prior exam. Right renal cortical atrophy is present. Multiple right renal calyceal calculi are present. These are especially noted at the inferior pole. Punctate right renal superior pole calyceal calculus is also present. No hydronephrosis. Left kidney is unremarkable. Large quantity of stool is noted to distend the colon. Nonspecific distention of the distal ileum is noted at the right iliac fossa level. No significant distention of small bowel more proximally however. No large abdominal or pelvic lymph nodes. No inflammatory changes about the cecum identified. Surgical clips involving the right iliac fossa is noted. Surgical clips in the retroperitoneal region at the pelvic level. Bladder is mostly decompressed. Facet joint degenerative changes through the lumbar spine are present. Transitional L5 vertebra noted with pseudoarticulation of the left transverse process with S1. Impression: Large quantity of stool in the colon. No acute inflammation evident. Distention of the right lower quadrant ileal loops of bowel. No obstruction suggested more proximally. Findings may represent focal ileus. Correlate clinically determining follow-up. Room Nonobstructive right renal calculi. Renal cortical atrophy. PQRS Compliance Statement: One or more of the following individualized dose reduction techniques were utilized for this examination: 1. Automated exposure control 2. Adjustment of the mA and/or kV according to patient size 3. Use of iterative reconstruction technique Electronically signed by: Baltazar Pyle MD (05/28/2019 12:55 PM) [facility] DICTATED and SIGNED BY: BALTAZAR PYLE MD DATE: 05/28/19 1255 VTE Prophylaxis Ordered VTE Prophylaxis Devices: Yes VTE Pharmacological Prophylaxi: Yes Assessment/Plan Assessment/Plan Impression: RECTAL BLEEDING, ACUTE acute blood loss anemia Large quantity of stool in the colon. No acute inflammation evident. Distention of the right lower quadrant ileal loops of bowel. No obstruction suggested more proximally. possible focal ileus. ESRD on dialysis UTI plan admit GI consult serial h/h nephrology consult IV CIPRO 200MG X 1 SCD'S ID CONSULT 57 min pt exam, chart review, > 50% of time spent with exam, chart review, pt care coordination KENDY LOVE MD May 28, 2019 16:11
--- NOTE | 2019-05-28 16:30 | PDOC2 ---
GI CONSULT Reason For Consult: Rectal bleeding HPI: HPI: 69 y/o female seen in ER. Reports red blood w/ clots in the toilet for 3 weeks - occurs with and without stool. Today had some blood drip down her leg so decided to come to the ER instead of going to dialysis. Denies reflux/heartburn, dysphagia, n/v, diarrhea, constipation, melena, change in appetite, and weight loss. Occasionally has left-sided and mid-abd pains. Chronic anemia w/ h/o ESRD and B12 deficiency. Hgb averages around 7, today is 10.8. BUN 59, Cr 5.9 (w/ last HD on Sunday). Plt 119, fecal occult positive. Large amount of stool and possible ileus on CT. She previously reported a h/o colon cancer - no records found re: this. Now reports not colon cancer but uterine cancer. EGD w/ Dr. Riddle in 04/2017 showed non-erosive gastritis. Colonoscopy w/ Dr. Morales in 11/2017 showed inflammation in cecum (no path) and tortuostiy and looping of the colon/ S/p cholecystectomy. Denies liver, pancreas, or PUD history. Viral hepatitis panel negative in the past. Thinks she takes B12 at home - shows me her bag of pills - iron is included but not B12. Takes Tylenol, no ASA/NSAIDs. PMH: PMH: chronic anemia, ESRD on HD, B12 deficiency, HTN, SBO, uterine cancer, nephrolithiasis cholecystectomy, hysterectomy, SBR, appendectomy, bone marrow biopsy FH: Family History: No pertinent hx Social History: Smoke: No ALCOHOL: none Drugs: None ROS: GEN: Denies fevers, chills, sweats HEENT: Denies blurred vision, sore throat CV: Denies chest pain RESP: Denies shortness of air, cough GI: Per HPI : Denies hematuria, dysuria ENDO: Denies weight changes NEURO: Denies confusion, dizziness MSK: Denies weakness, joint pain/swelling SKIN: Denies jaundice, pruritus Vitals: Vitals: Vital Signs Date Time Temp Pulse Resp B/P (MAP) Pulse Ox O2 Delivery O2 Flow Rate FiO2 05/28/19 13:02 72 16 124/70 (88) 100 Room Air 05/28/19 12:02 97.7 97.7 Labs: Labs: Laboratory Tests Test 05/28/19 12:33 05/28/19 12:40 05/28/19 12:53 Urine Collection Type Unknown Urine Color Yellow Urine Clarity Clear Urine pH 5.5 Urine Specific [place] 1.015 Urine Protein 30 mg/dL (NEG-TRACE) Urine Glucose (UA) Negative mg/dL (NEG) Urine Ketones (Stick) Negative mg/dL (NEG) Urine Blood Moderate (NEG) Urine Nitrite Negative (NEG) Urine Bilirubin Negative (NEG) Urine Urobilinogen Dipstick 0.2 mg/dL (0.2 mg/dL) Urine Leukocyte Esterase Moderate (NEG) Urine RBC 11-20 /HPF (0-2) Urine WBC 20-40 /HPF (0-4) Urine Squamous Epithelial Cells Many /LPF Urine Bacteria Moderate /HPF (0-FEW) Stool Occult Blood Positive (NEG) White Blood Count 5.0 x10^3/uL (4.0-11.0) Red Blood Count 3.57 x10^6/uL (3.50-5.40) Hemoglobin 10.8 g/dL (12.0-15.5) Hematocrit 34.1 % (36.0-47.0) Mean Corpuscular Volume 95 fL (79-100) Mean Corpuscular Hemoglobin 30 pg (25-35) Mean Corpuscular Hemoglobin Concent 32 g/dL (31-37) Red Cell Distribution Width 14.5 % (11.5-14.5) Platelet Count 119 x10^3/uL (140-400) Neutrophils (%) (Auto) 65 % (31-73) Lymphocytes (%) (Auto) 22 % (24-48) Monocytes (%) (Auto) 9 % (0-9) Eosinophils (%) (Auto) 3 % (0-3) Basophils (%) (Auto) 2 % (0-3) Neutrophils # (Auto) 3.3 x10^3/uL (1.8-7.7) Lymphocytes # (Auto) 1.1 x10^3/uL (1.0-4.8) Monocytes # (Auto) 0.4 x10^3/uL (0.0-1.1) Eosinophils # (Auto) 0.1 x10^3/uL (0.0-0.7) Basophils # (Auto) 0.1 x10^3/uL (0.0-0.2) Sodium Level 146 mmol/L (136-145) Potassium Level 4.0 mmol/L (3.5-5.1) Chloride Level 107 mmol/L (98-107) Carbon Dioxide Level 24 mmol/L (21-32) Anion Gap 15 (6-14) Blood Urea Nitrogen 59 mg/dL (7-20) Creatinine 5.2 mg/dL (0.6-1.0) Estimated GFR (Cockcroft-Gault) 8.2 BUN/Creatinine Ratio 11 (6-20) Glucose Level 70 mg/dL (70-99) Calcium Level 8.1 mg/dL (8.5-10.1) Total Bilirubin 0.3 mg/dL (0.2-1.0) Aspartate Amino Transf (AST/SGOT) 17 U/L (15-37) Alanine Aminotransferase (ALT/SGPT) 14 U/L (14-59) Alkaline Phosphatase 75 U/L (46-116) Total Protein 7.1 g/dL (6.4-8.2) Albumin 3.5 g/dL (3.4-5.0) Albumin/Globulin Ratio 1.0 (1.0-1.7) Allergies: Coded Allergies: Penicillins (Verified Allergy, Intermediate, rash, 05/07/18) Medications: Current Medications Medications (Trade) Dose Ordered Sig/Rebecca Route PRN Reason Start Time Stop Time Status Last Admin Dose Admin Famotidine (Pepcid Vial) 20 mg 1X ONCE IVP 05/28/19 12:30 05/28/19 12:31 DC 05/28/19 13:04 Imaging: Imaging: CT A/P Impression: Large quantity of stool in the colon. No acute inflammation evident. Distention of the right lower quadrant ileal loops of bowel. No obstruction suggested more proximally. Findings may represent focal ileus. Correlate clinically determining follow-up. Room Nonobstructive right renal calculi. Renal cortical atrophy. PE: GEN: NAD - calm, chewing gum HEENT: Atraumatic, PERRL LUNGS: CTAB HEART: RRR ABD: occasional quiet gurgle, soft, non-distended, midline scar w/ reducible hernia, some tenderness to left midabdomen EXTREMITY: No edema SKIN: No rashes, no jaundice NEURO/PSYCH: A & O 3 A/P: A/P: ?hematochezia, intermittent left-sided abd pain Chronic anemia, +fecal occult positive - Hgb above baseline, element of iron deficiency in [address] - large amount of stool, possible ileus CRC screen - UTD Ventral hernia H/o SBO and SBR ESRD on HD, B12 deficiency -- Bleeding apparently ongoing for weeks w/ above average Hgb - monitor for recurrence and monitor labs. Does have hernia w/ intermittent abd pain and ?ileus - NPO for now - she was not excited about this. Empiric acid-laminator. GRISELDA EVANS May 28, 2019 16:30
[2019-05-28] MEDS: PANTOPRAZOLE IV PUSH 40 MG VIAL. IVP SCH (17:03)
[2019-05-28] MEDS ORDERED: ACETAMINOPHEN 325 MG TABLET. PO PRN (19:00)
[2019-05-28] MEDS ORDERED: cloNIDine HCL 0.1 MG TABLET PO PRN (19:00)
[2019-05-28] MEDS ORDERED: guaiFENesin ORAL 200 MG/10 ML LIQUID. PO PRN (19:00)
[2019-05-28] MEDS ORDERED: 0.9 % SODIUM CHLORIDE 10 ML DISP.SYRIN. IV PRN (19:00)
[2019-05-28] MEDS ORDERED: LORazepam 0.5 MG TABLET PO PRN (19:00)
[2019-05-28] MEDS ORDERED: ALBUTEROL SULFATE 2.5 MG/3 ML NEBU. NEB PRN (19:00)
[2019-05-28] MEDS ORDERED: CIPROFLOXACIN 200MG PREMIX 100 ML IV ONE (19:00)
[2019-05-28 19:50] VITALS: BP 135/72
[2019-05-28 23:22] VITALS: BP 122/62
[2019-05-29 03:37] VITALS: BP 111/56
[2019-05-29 05:02] LABS: BASO # 0.1 x10^3/uL (0.0-0.2); BASO % 1 % (0-3); EOS # 0.2 x10^3/uL (0.0-0.7); EOS % 3 % (0-3); HEMATOCRIT 35.3 % (36.0-47.0); HEMOGLOBIN 11.2 g/dL (12.0-15.5); LYMPH # 1.9 x10^3/uL (1.0-4.8); LYMPH % 32 % (24-48); MEAN CORPUSCULAR HEMOGLOBIN 30 pg (25-35); MEAN CORPUSCULAR HGB CONC 32 g/dL (31-37); MEAN CORPUSCULAR VOLUME 96 fL (79-100); MONO # 0.5 x10^3/uL (0.0-1.1); MONO % 7 % (0-9); NEUT # 3.5 x10^3/uL (1.8-7.7); NEUT % 57 % (31-73); PLATELET COUNT 131 x10^3/uL (140-400); RED CELL DISTRIBUTION WIDTH 14.5 % (11.5-14.5); WHITE BLOOD COUNT 6.1 x10^3/uL (4.0-11.0)
[2019-05-29 05:18] LABS: ALBUMIN 3.4 g/dL (3.4-5.0); ALBUMIN/GLOBULIN RATIO 0.9 (1.0-1.7); CALCIUM 8.4 mg/dL (8.5-10.1); GFR 8.6; TOTAL BILIRUBIN 0.4 mg/dL (0.2-1.0)
[2019-05-29 07:00] VITALS: BP 122/58
[2019-05-29] MEDS: PANTOPRAZOLE IV PUSH 40 MG VIAL. IVP SCH (07:52)
[2019-05-29] MEDS: IV NORMAL SALINE 1000ML BAG 1,000 ML IV SCH ×3 (07:52→17:01)
--- NOTE | 2019-05-29 08:43 | PDOC ---
PROGRESS NOTES Chief Complaint Chief Complaint A/P: RECTAL BLEEDING, ACUTE Acute blood loss anemia Large quantity of stool in the colon. No acute inflammation evident. Distention of the right lower quadrant ileal loops of bowel. No obstruction suggested more proximally. possible focal ileus. ESRD on dialysis UTI? Thrombocytopenia History of Present Illness History of Present Illness Ms Murillo is a 69 y/o F w/ PMHx chronic anemia, ESRD on HD, B12 deficiency, HTN, SBO, uterine cancer, nephrolithiasis who comes to ED c/o red blood w/ clots in the toilet for 3 weeks. Missed dialysis 2/2 her LGIB. Hb 10.8. BUN 59, Cr 5.9. Plt 119, fecal occult positive. Large amount of stool and possible ileus on CT. She has had no further bleeding. Feels a bit better today. Has some constipation, no CP or SOB. Vitals Vitals Vital Signs Date Time Temp Pulse Resp B/P (MAP) Pulse Ox O2 Delivery O2 Flow Rate FiO2 05/29/19 07:00 97.8 68 18 122/58 (79) 100 Room Air 97.8 Physical Exam General: Alert, Oriented X3, Cooperative, No acute distress Lungs: Clear, Other Extremities: No cyanosis Labs LABS Laboratory Tests Test 05/28/19 12:33 05/28/19 12:40 05/28/19 12:53 05/29/19 04:40 Urine Collection Type Unknown Urine Color Yellow Urine Clarity Clear Urine pH 5.5 Urine Specific [place] 1.015 Urine Protein 30 mg/dL (NEG-TRACE) Urine Glucose (UA) Negative mg/dL (NEG) Urine Ketones (Stick) Negative mg/dL (NEG) Urine Blood Moderate (NEG) Urine Nitrite Negative (NEG) Urine Bilirubin Negative (NEG) Urine Urobilinogen Dipstick 0.2 mg/dL (0.2 mg/dL) Urine Leukocyte Esterase Moderate (NEG) Urine RBC 11-20 /HPF (0-2) Urine WBC 20-40 /HPF (0-4) Urine Squamous Epithelial Cells Many /LPF Urine Bacteria Moderate /HPF (0-FEW) Stool Occult Blood Positive (NEG) White Blood Count 5.0 x10^3/uL (4.0-11.0) 6.1 x10^3/uL (4.0-11.0) Red Blood Count 3.57 x10^6/uL (3.50-5.40) 3.70 x10^6/uL (3.50-5.40) Hemoglobin 10.8 g/dL (12.0-15.5) 11.2 g/dL (12.0-15.5) Hematocrit 34.1 % (36.0-47.0) 35.3 % (36.0-47.0) Mean Corpuscular Volume 95 fL (79-100) 96 fL (79-100) Mean Corpuscular Hemoglobin 30 pg (25-35) 30 pg (25-35) Mean Corpuscular Hemoglobin Concent 32 g/dL (31-37) 32 g/dL (31-37) Red Cell Distribution Width 14.5 % (11.5-14.5) 14.5 % (11.5-14.5) Platelet Count 119 x10^3/uL (140-400) 131 x10^3/uL (140-400) Neutrophils (%) (Auto) 65 % (31-73) 57 % (31-73) Lymphocytes (%) (Auto) 22 % (24-48) 32 % (24-48) Monocytes (%) (Auto) 9 % (0-9) 7 % (0-9) Eosinophils (%) (Auto) 3 % (0-3) 3 % (0-3) Basophils (%) (Auto) 2 % (0-3) 1 % (0-3) Neutrophils # (Auto) 3.3 x10^3/uL (1.8-7.7) 3.5 x10^3/uL (1.8-7.7) Lymphocytes # (Auto) 1.1 x10^3/uL (1.0-4.8) 1.9 x10^3/uL (1.0-4.8) Monocytes # (Auto) 0.4 x10^3/uL (0.0-1.1) 0.5 x10^3/uL (0.0-1.1) Eosinophils # (Auto) 0.1 x10^3/uL (0.0-0.7) 0.2 x10^3/uL (0.0-0.7) Basophils # (Auto) 0.1 x10^3/uL (0.0-0.2) 0.1 x10^3/uL (0.0-0.2) Sodium Level 146 mmol/L (136-145) 142 mmol/L (136-145) Potassium Level 4.0 mmol/L (3.5-5.1) 4.0 mmol/L (3.5-5.1) Chloride Level 107 mmol/L (98-107) 105 mmol/L (98-107) Carbon Dioxide Level 24 mmol/L (21-32) 21 mmol/L (21-32) Anion Gap 15 (6-14) 16 (6-14) Blood Urea Nitrogen 59 mg/dL (7-20) 64 mg/dL (7-20) Creatinine 5.2 mg/dL (0.6-1.0) 5.0 mg/dL (0.6-1.0) Estimated GFR (Cockcroft-Gault) 8.2 8.6 BUN/Creatinine Ratio 11 (6-20) 13 (6-20) Glucose Level 70 mg/dL (70-99) 88 mg/dL (70-99) Calcium Level 8.1 mg/dL (8.5-10.1) 8.4 mg/dL (8.5-10.1) Total Bilirubin 0.3 mg/dL (0.2-1.0) 0.4 mg/dL (0.2-1.0) Aspartate Amino Transf (AST/SGOT) 17 U/L (15-37) 18 U/L (15-37) Alanine Aminotransferase (ALT/SGPT) 14 U/L (14-59) 15 U/L (14-59) Alkaline Phosphatase 75 U/L (46-116) 74 U/L (46-116) Total Protein 7.1 g/dL (6.4-8.2) 7.0 g/dL (6.4-8.2) Albumin 3.5 g/dL (3.4-5.0) 3.4 g/dL (3.4-5.0) Albumin/Globulin Ratio 1.0 (1.0-1.7) 0.9 (1.0-1.7) Assessment and Plan Assessmemt and Plan Problems Medical Problems: (1) Anemia Status: Acute (2) Rectal bleeding Status: Acute (3) UTI (urinary tract infection) Status: Acute Comment Review of Relevant I have reviewed the following items yoel (where applicable) has been applied. Labs Laboratory Tests Test 05/28/19 12:33 05/28/19 12:40 05/28/19 12:53 05/29/19 04:40 Urine Collection Type Unknown Urine Color Yellow Urine Clarity Clear Urine pH 5.5 Urine Specific [place] 1.015 Urine Protein 30 mg/dL (NEG-TRACE) Urine Glucose (UA) Negative mg/dL (NEG) Urine Ketones (Stick) Negative mg/dL (NEG) Urine Blood Moderate (NEG) Urine Nitrite Negative (NEG) Urine Bilirubin Negative (NEG) Urine Urobilinogen Dipstick 0.2 mg/dL (0.2 mg/dL) Urine Leukocyte Esterase Moderate (NEG) Urine RBC 11-20 /HPF (0-2) Urine WBC 20-40 /HPF (0-4) Urine Squamous Epithelial Cells Many /LPF Urine Bacteria Moderate /HPF (0-FEW) Stool Occult Blood Positive (NEG) White Blood Count 5.0 x10^3/uL (4.0-11.0) 6.1 x10^3/uL (4.0-11.0) Red Blood Count 3.57 x10^6/uL (3.50-5.40) 3.70 x10^6/uL (3.50-5.40) Hemoglobin 10.8 g/dL (12.0-15.5) 11.2 g/dL (12.0-15.5) Hematocrit 34.1 % (36.0-47.0) 35.3 % (36.0-47.0) Mean Corpuscular Volume 95 fL (79-100) 96 fL (79-100) Mean Corpuscular Hemoglobin 30 pg (25-35) 30 pg (25-35) Mean Corpuscular Hemoglobin Concent 32 g/dL (31-37) 32 g/dL (31-37) Red Cell Distribution Width 14.5 % (11.5-14.5) 14.5 % (11.5-14.5) Platelet Count 119 x10^3/uL (140-400) 131 x10^3/uL (140-400) Neutrophils (%) (Auto) 65 % (31-73) 57 % (31-73) Lymphocytes (%) (Auto) 22 % (24-48) 32 % (24-48) Monocytes (%) (Auto) 9 % (0-9) 7 % (0-9) Eosinophils (%) (Auto) 3 % (0-3) 3 % (0-3) Basophils (%) (Auto) 2 % (0-3) 1 % (0-3) Neutrophils # (Auto) 3.3 x10^3/uL (1.8-7.7) 3.5 x10^3/uL (1.8-7.7) Lymphocytes # (Auto) 1.1 x10^3/uL (1.0-4.8) 1.9 x10^3/uL (1.0-4.8) Monocytes # (Auto) 0.4 x10^3/uL (0.0-1.1) 0.5 x10^3/uL (0.0-1.1) Eosinophils # (Auto) 0.1 x10^3/uL (0.0-0.7) 0.2 x10^3/uL (0.0-0.7) Basophils # (Auto) 0.1 x10^3/uL (0.0-0.2) 0.1 x10^3/uL (0.0-0.2) Sodium Level 146 mmol/L (136-145) 142 mmol/L (136-145) Potassium Level 4.0 mmol/L (3.5-5.1) 4.0 mmol/L (3.5-5.1) Chloride Level 107 mmol/L (98-107) 105 mmol/L (98-107) Carbon Dioxide Level 24 mmol/L (21-32) 21 mmol/L (21-32) Anion Gap 15 (6-14) 16 (6-14) Blood Urea Nitrogen 59 mg/dL (7-20) 64 mg/dL (7-20) Creatinine 5.2 mg/dL (0.6-1.0) 5.0 mg/dL (0.6-1.0) Estimated GFR (Cockcroft-Gault) 8.2 8.6 BUN/Creatinine Ratio 11 (6-20) 13 (6-20) Glucose Level 70 mg/dL (70-99) 88 mg/dL (70-99) Calcium Level 8.1 mg/dL (8.5-10.1) 8.4 mg/dL (8.5-10.1) Total Bilirubin 0.3 mg/dL (0.2-1.0) 0.4 mg/dL (0.2-1.0) Aspartate Amino Transf (AST/SGOT) 17 U/L (15-37) 18 U/L (15-37) Alanine Aminotransferase (ALT/SGPT) 14 U/L (14-59) 15 U/L (14-59) Alkaline Phosphatase 75 U/L (46-116) 74 U/L (46-116) Total Protein 7.1 g/dL (6.4-8.2) 7.0 g/dL (6.4-8.2) Albumin 3.5 g/dL (3.4-5.0) 3.4 g/dL (3.4-5.0) Albumin/Globulin Ratio 1.0 (1.0-1.7) 0.9 (1.0-1.7) Laboratory Tests Test 05/28/19 12:33 05/28/19 12:40 05/28/19 12:53 05/29/19 04:40 Urine Collection Type Unknown Urine Color Yellow Urine Clarity Clear Urine pH 5.5 Urine Specific [place] 1.015 Urine Protein 30 mg/dL (NEG-TRACE) Urine Glucose (UA) Negative mg/dL (NEG) Urine Ketones (Stick) Negative mg/dL (NEG) Urine Blood Moderate (NEG) Urine Nitrite Negative (NEG) Urine Bilirubin Negative (NEG) Urine Urobilinogen Dipstick 0.2 mg/dL (0.2 mg/dL) Urine Leukocyte Esterase Moderate (NEG) Urine RBC 11-20 /HPF (0-2) Urine WBC 20-40 /HPF (0-4) Urine Squamous Epithelial Cells Many /LPF Urine Bacteria Moderate /HPF (0-FEW) Stool Occult Blood Positive (NEG) White Blood Count 5.0 x10^3/uL (4.0-11.0) 6.1 x10^3/uL (4.0-11.0) Red Blood Count 3.57 x10^6/uL (3.50-5.40) 3.70 x10^6/uL (3.50-5.40) Hemoglobin 10.8 g/dL (12.0-15.5) 11.2 g/dL (12.0-15.5) Hematocrit 34.1 % (36.0-47.0) 35.3 % (36.0-47.0) Mean Corpuscular Volume 95 fL (79-100) 96 fL (79-100) Mean Corpuscular Hemoglobin 30 pg (25-35) 30 pg (25-35) Mean Corpuscular Hemoglobin Concent 32 g/dL (31-37) 32 g/dL (31-37) Red Cell Distribution Width 14.5 % (11.5-14.5) 14.5 % (11.5-14.5) Platelet Count 119 x10^3/uL (140-400) 131 x10^3/uL (140-400) Neutrophils (%) (Auto) 65 % (31-73) 57 % (31-73) Lymphocytes (%) (Auto) 22 % (24-48) 32 % (24-48) Monocytes (%) (Auto) 9 % (0-9) 7 % (0-9) Eosinophils (%) (Auto) 3 % (0-3) 3 % (0-3) Basophils (%) (Auto) 2 % (0-3) 1 % (0-3) Neutrophils # (Auto) 3.3 x10^3/uL (1.8-7.7) 3.5 x10^3/uL (1.8-7.7) Lymphocytes # (Auto) 1.1 x10^3/uL (1.0-4.8) 1.9 x10^3/uL (1.0-4.8) Monocytes # (Auto) 0.4 x10^3/uL (0.0-1.1) 0.5 x10^3/uL (0.0-1.1) Eosinophils # (Auto) 0.1 x10^3/uL (0.0-0.7) 0.2 x10^3/uL (0.0-0.7) Basophils # (Auto) 0.1 x10^3/uL (0.0-0.2) 0.1 x10^3/uL (0.0-0.2) Sodium Level 146 mmol/L (136-145) 142 mmol/L (136-145) Potassium Level 4.0 mmol/L (3.5-5.1) 4.0 mmol/L (3.5-5.1) Chloride Level 107 mmol/L (98-107) 105 mmol/L (98-107) Carbon Dioxide Level 24 mmol/L (21-32) 21 mmol/L (21-32) Anion Gap 15 (6-14) 16 (6-14) Blood Urea Nitrogen 59 mg/dL (7-20) 64 mg/dL (7-20) Creatinine 5.2 mg/dL (0.6-1.0) 5.0 mg/dL (0.6-1.0) Estimated GFR (Cockcroft-Gault) 8.2 8.6 BUN/Creatinine Ratio 11 (6-20) 13 (6-20) Glucose Level 70 mg/dL (70-99) 88 mg/dL (70-99) Calcium Level 8.1 mg/dL (8.5-10.1) 8.4 mg/dL (8.5-10.1) Total Bilirubin 0.3 mg/dL (0.2-1.0) 0.4 mg/dL (0.2-1.0) Aspartate Amino Transf (AST/SGOT) 17 U/L (15-37) 18 U/L (15-37) Alanine Aminotransferase (ALT/SGPT) 14 U/L (14-59) 15 U/L (14-59) Alkaline Phosphatase 75 U/L (46-116) 74 U/L (46-116) Total Protein 7.1 g/dL (6.4-8.2) 7.0 g/dL (6.4-8.2) Albumin 3.5 g/dL (3.4-5.0) 3.4 g/dL (3.4-5.0) Albumin/Globulin Ratio 1.0 (1.0-1.7) 0.9 (1.0-1.7) Medications Current Medications Famotidine (Pepcid Vial) 20 mg 1X ONCE IVP Last administered on 05/28/19at 13:04; Start 05/28/19 at 12:30; Stop 05/28/19 at 12:31; Status DC Ondansetron HCl (Zofran) 4 mg PRN Q8HRS PRN IV NAUSEA/VOMITING; Start 05/28/19 at 16:00; Stop 05/29/19 at 15:59 Pantoprazole Sodium (PROTONIX VIAL for IV PUSH) 40 mg DAILYAC IVP Last administered on 05/29/19at 07:52; Start 05/28/19 at 16:30 Ciprofloxacin/ Dextrose 100 ml @ 100 mls/hr 1X ONCE IV Last administered on 05/28/19at 19:00; Start 05/28/19 at 19:00; Stop 05/28/19 at 19:59; Status DC Sodium Chloride (Normal Saline Flush) 3 ml QSHIFT PRN IV AFTER MEDS AND BLOOD DRAWS; Start 05/28/19 at 19:00 Sodium Chloride 1,000 ml @ 100 mls/hr Q10H IV Last administered on 05/29/19at 07:53; Start 05/28/19 at 18:50 Ondansetron HCl (Zofran) 4 mg PRN Q4HRS PRN IV NAUSEA/VOMITING; Start 05/28/19 at 19:00 Acetaminophen (Tylenol) 650 mg PRN Q4HRS PRN PO TEMP OVER 100.4F OR MILD PAIN; Start 05/28/19 at 19:00 Clonidine HCl (Catapres) 0.1 mg PRN Q6HRS PRN PO SBP>160 OR DBP>90; Start 05/28/19 at 19:00 Albuterol Sulfate (Ventolin Neb Soln) 2.5 mg PRN Q4HRS PRN NEB SHORTNESS OF BREATH; Start 05/28/19 at 19:00 Guaifenesin (Robitussin) 200 mg PRN Q4HRS PRN PO COUGH; Start 05/28/19 at 19:00 Lorazepam (Ativan) 0.5 mg PRN Q4HRS PRN PO ANXIETY / AGITATION; Start 05/28/19 at 19:00 Active Scripts Active Oxycodone Hcl 5 Mg Tablet 1 Tab PO QID Vitamin D2 (Ergocalciferol (Vitamin D2)) 50,000 Unit Capsule 50,000 Unit PO WEEKLY Folbic Tablet (Cyanocobalamin/Fa/Pyridoxine) 1 Each Tablet 1 Tab PO DAILY Calcitriol 0.25 Mcg Capsule 0.25 Mcg PO DAILY Reported Sodium Bicarbonate 650 Mg Tablet 1,300 Mg PO BID Ferrous Sulfate 325 Mg Tablet 325 Mg PO TIDWMEALS Norvasc (Amlodipine Besylate) 10 Mg Tablet 10 Mg PO DAILY08 Vitals/I & O Vital Sign - Last 24 Hours 05/28/19 05/28/19 05/28/19 05/28/19 12:02 12:45 13:02 13:32 Temp 97.7 97.7 Pulse 83 74 72 74 Resp 16 16 16 18 B/P (MAP) 118/63 (81) 116/65 (82) 124/70 (88) 140/76 (97) Pulse Ox 98 100 100 98 O2 Delivery Room Air Room Air Room Air 05/28/19 05/28/19 05/28/19 05/28/19 14:02 14:32 15:02 17:35 Pulse 72 74 78 Resp 18 18 18 B/P (MAP) 154/68 (96) 138/75 (96) 147/78 (101) Pulse Ox 98 98 98 O2 Delivery Room Air Room Air 05/28/19 05/28/19 05/28/19 05/29/19 19:40 19:50 23:22 03:37 Temp 97.6 97.7 98.4 97.6 97.7 98.4 Pulse 74 76 71 Resp 18 20 20 B/P (MAP) 135/72 (93) 122/62 (82) 111/56 (74) Pulse Ox 98 95 96 O2 Delivery Room Air Room Air Room Air Room Air 05/29/19 07:00 Temp 97.8 97.8 Pulse 68 Resp 18 B/P (MAP) 122/58 (79) Pulse Ox 100 O2 Delivery Room Air Intake and Output 05/28/19 05/28/19 05/29/19 14:59 22:59 06:59 Intake Total 700 ml Balance 700 ml LICO NOBLE MD May 29, 2019 08:43
--- NOTE | 2019-05-29 09:45 | PDOC2 ---
CONSULT Date of Consult Date of Consult DATE: 05/29/19 TIME: 09:38 Reason for Consult Reason for Consult: ESRD Identification/Chief Complaint Chief Complaint None currently Source Source: Chart review History of Present Illness Reason for Visit: Patient is a 69 year old AA female with history of hypertension, dementia, end-stage kidney disease on dialysis Sunday last dialyzed on Sunday this week who presents to the ED today complaining of rectal bleeding for 2-3 weeks. Patient states she has noted blood whenever she uses the bathroom. Daughter reports patient had a bowel movement yesterday and there was blood on the toilet but she could not figure out whether the blood was coming from her urethra or her rectum region. Patient herself states she believes it is coming from her rectal region. She states she still produces urine but has not noticed any blood in the urine. Patient denies any abdominal pain. Denies any nausea vomiting.Denies LE edema. No urinary complaints- denies dysuria, hematuria. Has Good RRF per Patient Past Medical History Cardiovascular: HTN, Other Pulmonary: Asthma, COPD, Other CENTRAL NERVOUS SYSTEM: Dementia, Other GI: GERD, GI bleed Heme/Onc: Anemia NOS, B12 deficiency, Cancer Hepatobiliary: No pertinent hx Psych: Depression Musculoskeletal: Osteoarthritis, Other Rheumatologic: Gout Infectious disease: No pertinent hx Renal/: Acute renal failure, Chronic renal failure, Other Endocrine: No pertinent hx Past Surgical History Past Surgical History: Appendectomy, Cholecystectomy, Hernia Repair, Hysterectomy, Other Family History Family History: Cancer, Hypertension, Kidney Disease, Stroke, Other Social History Social History: Parent No ALCOHOL: none Drugs: None Current Problem List Problem List Problems Medical Problems: (1) Anemia Status: Acute (2) Rectal bleeding Status: Acute (3) UTI (urinary tract infection) Status: Acute Current Medications Current Medications Current Medications Famotidine (Pepcid Vial) 20 mg 1X ONCE IVP Last administered on 05/28/19at 13:04; Start 05/28/19 at 12:30; Stop 05/28/19 at 12:31; Status DC Ondansetron HCl (Zofran) 4 mg PRN Q8HRS PRN IV NAUSEA/VOMITING; Start 05/28/19 at 16:00; Stop 05/29/19 at 15:59 Pantoprazole Sodium (PROTONIX VIAL for IV PUSH) 40 mg DAILYAC IVP Last administered on 05/29/19at 07:52; Start 05/28/19 at 16:30 Ciprofloxacin/ Dextrose 100 ml @ 100 mls/hr 1X ONCE IV Last administered on 05/28/19at 19:00; Start 05/28/19 at 19:00; Stop 05/28/19 at 19:59; Status DC Sodium Chloride (Normal Saline Flush) 3 ml QSHIFT PRN IV AFTER MEDS AND BLOOD DRAWS; Start 05/28/19 at 19:00 Sodium Chloride 1,000 ml @ 100 mls/hr Q10H IV Last administered on 05/29/19at 07:53; Start 05/28/19 at 18:50 Ondansetron HCl (Zofran) 4 mg PRN Q4HRS PRN IV NAUSEA/VOMITING; Start 05/28/19 at 19:00 Acetaminophen (Tylenol) 650 mg PRN Q4HRS PRN PO TEMP OVER 100.4F OR MILD PAIN; Start 05/28/19 at 19:00 Clonidine HCl (Catapres) 0.1 mg PRN Q6HRS PRN PO SBP>160 OR DBP>90; Start 05/28/19 at 19:00 Albuterol Sulfate (Ventolin Neb Soln) 2.5 mg PRN Q4HRS PRN NEB SHORTNESS OF BREATH; Start 05/28/19 at 19:00 Guaifenesin (Robitussin) 200 mg PRN Q4HRS PRN PO COUGH; Start 05/28/19 at 19:00 Lorazepam (Ativan) 0.5 mg PRN Q4HRS PRN PO ANXIETY / AGITATION; Start 05/28/19 at 19:00 Active Scripts Active Oxycodone Hcl 5 Mg Tablet 1 Tab PO QID Vitamin D2 (Ergocalciferol (Vitamin D2)) 50,000 Unit Capsule 50,000 Unit PO WEEKLY Folbic Tablet (Cyanocobalamin/Fa/Pyridoxine) 1 Each Tablet 1 Tab PO DAILY Calcitriol 0.25 Mcg Capsule 0.25 Mcg PO DAILY Reported Sodium Bicarbonate 650 Mg Tablet 1,300 Mg PO BID Ferrous Sulfate 325 Mg Tablet 325 Mg PO TIDWMEALS Norvasc (Amlodipine Besylate) 10 Mg Tablet 10 Mg PO DAILY08 Allergies Allergies: Coded Allergies: Penicillins (Verified Allergy, Intermediate, rash, 05/07/18) ROS Review of System Per HPI Physical Exam Physical Exam GEN: NAD HEEN: OM moist NECK: Supple CVS: S1S2 RESP: RRR, No Acc. Muscle Use GI: BS + ve, Non Tender, : No CVA tenderness, No Suprapubic Tenderness NEURO- Grossly normal SKIN No rash No Harris Vital Signs Vital Signs Date Time Temp Pulse Resp B/P (MAP) Pulse Ox O2 Delivery O2 Flow Rate FiO2 05/29/19 08:00 Room Air 05/29/19 07:00 97.8 68 18 122/58 (79) 100 97.8 Assessment & Plan ESRD- On HD MWF, since December 2017 Last HD was on Sunday, missed sun E-Lytes and acid base stable, Vol status stable, No emergent Indication for HD today Tomorrow per her schedule Rectal Bleed Acute - Gi managing UA abnormal- WBC, RBC +- defer to primary HTN- BP at goal Chronic anemia, +fecal occult positive - Hgb above baseline Abnormal CT - large amount of stool, possible ileus Labs Labs Laboratory Tests Test 05/28/19 12:33 05/28/19 12:40 05/28/19 12:53 05/29/19 04:40 Urine Collection Type Unknown Urine Color Yellow Urine Clarity Clear Urine pH 5.5 Urine Specific [place] 1.015 Urine Protein 30 mg/dL (NEG-TRACE) Urine Glucose (UA) Negative mg/dL (NEG) Urine Ketones (Stick) Negative mg/dL (NEG) Urine Blood Moderate (NEG) Urine Nitrite Negative (NEG) Urine Bilirubin Negative (NEG) Urine Urobilinogen Dipstick 0.2 mg/dL (0.2 mg/dL) Urine Leukocyte Esterase Moderate (NEG) Urine RBC 11-20 /HPF (0-2) Urine WBC 20-40 /HPF (0-4) Urine Squamous Epithelial Cells Many /LPF Urine Bacteria Moderate /HPF (0-FEW) Stool Occult Blood Positive (NEG) White Blood Count 5.0 x10^3/uL (4.0-11.0) 6.1 x10^3/uL (4.0-11.0) Red Blood Count 3.57 x10^6/uL (3.50-5.40) 3.70 x10^6/uL (3.50-5.40) Hemoglobin 10.8 g/dL (12.0-15.5) 11.2 g/dL (12.0-15.5) Hematocrit 34.1 % (36.0-47.0) 35.3 % (36.0-47.0) Mean Corpuscular Volume 95 fL (79-100) 96 fL (79-100) Mean Corpuscular Hemoglobin 30 pg (25-35) 30 pg (25-35) Mean Corpuscular Hemoglobin Concent 32 g/dL (31-37) 32 g/dL (31-37) Red Cell Distribution Width 14.5 % (11.5-14.5) 14.5 % (11.5-14.5) Platelet Count 119 x10^3/uL (140-400) 131 x10^3/uL (140-400) Neutrophils (%) (Auto) 65 % (31-73) 57 % (31-73) Lymphocytes (%) (Auto) 22 % (24-48) 32 % (24-48) Monocytes (%) (Auto) 9 % (0-9) 7 % (0-9) Eosinophils (%) (Auto) 3 % (0-3) 3 % (0-3) Basophils (%) (Auto) 2 % (0-3) 1 % (0-3) Neutrophils # (Auto) 3.3 x10^3/uL (1.8-7.7) 3.5 x10^3/uL (1.8-7.7) Lymphocytes # (Auto) 1.1 x10^3/uL (1.0-4.8) 1.9 x10^3/uL (1.0-4.8) Monocytes # (Auto) 0.4 x10^3/uL (0.0-1.1) 0.5 x10^3/uL (0.0-1.1) Eosinophils # (Auto) 0.1 x10^3/uL (0.0-0.7) 0.2 x10^3/uL (0.0-0.7) Basophils # (Auto) 0.1 x10^3/uL (0.0-0.2) 0.1 x10^3/uL (0.0-0.2) Sodium Level 146 mmol/L (136-145) 142 mmol/L (136-145) Potassium Level 4.0 mmol/L (3.5-5.1) 4.0 mmol/L (3.5-5.1) Chloride Level 107 mmol/L (98-107) 105 mmol/L (98-107) Carbon Dioxide Level 24 mmol/L (21-32) 21 mmol/L (21-32) Anion Gap 15 (6-14) 16 (6-14) Blood Urea Nitrogen 59 mg/dL (7-20) 64 mg/dL (7-20) Creatinine 5.2 mg/dL (0.6-1.0) 5.0 mg/dL (0.6-1.0) Estimated GFR (Cockcroft-Gault) 8.2 8.6 BUN/Creatinine Ratio 11 (6-20) 13 (6-20) Glucose Level 70 mg/dL (70-99) 88 mg/dL (70-99) Calcium Level 8.1 mg/dL (8.5-10.1) 8.4 mg/dL (8.5-10.1) Total Bilirubin 0.3 mg/dL (0.2-1.0) 0.4 mg/dL (0.2-1.0) Aspartate Amino Transf (AST/SGOT) 17 U/L (15-37) 18 U/L (15-37) Alanine Aminotransferase (ALT/SGPT) 14 U/L (14-59) 15 U/L (14-59) Alkaline Phosphatase 75 U/L (46-116) 74 U/L (46-116) Total Protein 7.1 g/dL (6.4-8.2) 7.0 g/dL (6.4-8.2) Albumin 3.5 g/dL (3.4-5.0) 3.4 g/dL (3.4-5.0) Albumin/Globulin Ratio 1.0 (1.0-1.7) 0.9 (1.0-1.7) Laboratory Tests Test 05/28/19 12:33 05/28/19 12:40 05/28/19 12:53 05/29/19 04:40 Urine Collection Type Unknown Urine Color Yellow Urine Clarity Clear Urine pH 5.5 Urine Specific [place] 1.015 Urine Protein 30 mg/dL (NEG-TRACE) Urine Glucose (UA) Negative mg/dL (NEG) Urine Ketones (Stick) Negative mg/dL (NEG) Urine Blood Moderate (NEG) Urine Nitrite Negative (NEG) Urine Bilirubin Negative (NEG) Urine Urobilinogen Dipstick 0.2 mg/dL (0.2 mg/dL) Urine Leukocyte Esterase Moderate (NEG) Urine RBC 11-20 /HPF (0-2) Urine WBC 20-40 /HPF (0-4) Urine Squamous Epithelial Cells Many /LPF Urine Bacteria Moderate /HPF (0-FEW) Stool Occult Blood Positive (NEG) White Blood Count 5.0 x10^3/uL (4.0-11.0) 6.1 x10^3/uL (4.0-11.0) Red Blood Count 3.57 x10^6/uL (3.50-5.40) 3.70 x10^6/uL (3.50-5.40) Hemoglobin 10.8 g/dL (12.0-15.5) 11.2 g/dL (12.0-15.5) Hematocrit 34.1 % (36.0-47.0) 35.3 % (36.0-47.0) Mean Corpuscular Volume 95 fL (79-100) 96 fL (79-100) Mean Corpuscular Hemoglobin 30 pg (25-35) 30 pg (25-35) Mean Corpuscular Hemoglobin Concent 32 g/dL (31-37) 32 g/dL (31-37) Red Cell Distribution Width 14.5 % (11.5-14.5) 14.5 % (11.5-14.5) Platelet Count 119 x10^3/uL (140-400) 131 x10^3/uL (140-400) Neutrophils (%) (Auto) 65 % (31-73) 57 % (31-73) Lymphocytes (%) (Auto) 22 % (24-48) 32 % (24-48) Monocytes (%) (Auto) 9 % (0-9) 7 % (0-9) Eosinophils (%) (Auto) 3 % (0-3) 3 % (0-3) Basophils (%) (Auto) 2 % (0-3) 1 % (0-3) Neutrophils # (Auto) 3.3 x10^3/uL (1.8-7.7) 3.5 x10^3/uL (1.8-7.7) Lymphocytes # (Auto) 1.1 x10^3/uL (1.0-4.8) 1.9 x10^3/uL (1.0-4.8) Monocytes # (Auto) 0.4 x10^3/uL (0.0-1.1) 0.5 x10^3/uL (0.0-1.1) Eosinophils # (Auto) 0.1 x10^3/uL (0.0-0.7) 0.2 x10^3/uL (0.0-0.7) Basophils # (Auto) 0.1 x10^3/uL (0.0-0.2) 0.1 x10^3/uL (0.0-0.2) Sodium Level 146 mmol/L (136-145) 142 mmol/L (136-145) Potassium Level 4.0 mmol/L (3.5-5.1) 4.0 mmol/L (3.5-5.1) Chloride Level 107 mmol/L (98-107) 105 mmol/L (98-107) Carbon Dioxide Level 24 mmol/L (21-32) 21 mmol/L (21-32) Anion Gap 15 (6-14) 16 (6-14) Blood Urea Nitrogen 59 mg/dL (7-20) 64 mg/dL (7-20) Creatinine 5.2 mg/dL (0.6-1.0) 5.0 mg/dL (0.6-1.0) Estimated GFR (Cockcroft-Gault) 8.2 8.6 BUN/Creatinine Ratio 11 (6-20) 13 (6-20) Glucose Level 70 mg/dL (70-99) 88 mg/dL (70-99) Calcium Level 8.1 mg/dL (8.5-10.1) 8.4 mg/dL (8.5-10.1) Total Bilirubin 0.3 mg/dL (0.2-1.0) 0.4 mg/dL (0.2-1.0) Aspartate Amino Transf (AST/SGOT) 17 U/L (15-37) 18 U/L (15-37) Alanine Aminotransferase (ALT/SGPT) 14 U/L (14-59) 15 U/L (14-59) Alkaline Phosphatase 75 U/L (46-116) 74 U/L (46-116) Total Protein 7.1 g/dL (6.4-8.2) 7.0 g/dL (6.4-8.2) Albumin 3.5 g/dL (3.4-5.0) 3.4 g/dL (3.4-5.0) Albumin/Globulin Ratio 1.0 (1.0-1.7) 0.9 (1.0-1.7) Review All relevant outside records, renal labs, imaging studies, telemetry/EKG's were reviewed. Images Images CT abdomen without contrast-- Large quantity of stool in the colon. No acute inflammation evident. Distention of the right lower quadrant ileal loops of bowel. No obstruction suggested more proximally. Findings may represent focal ileus. Correlate clinically determining follow-up. Room Nonobstructive right renal calculi. Renal cortical atrophy. MAIRA PATIÑO MD May 29, 2019 09:45
[2019-05-29 10:33] LABS: PROTHROMBIN TIME PATIENT 13.5 SEC (11.7-14.0)
[2019-05-29 11:00] VITALS: BP 133/61
--- NOTE | 2019-05-29 12:03 | PDOC ---
Subjective: Subjective: Has stooled, bleeding is "not like it was." Objective: Objective: Staff has not observed bleeding. No plans for dialysis until tomorrow (which is her regular day). Vital Signs: Vital Signs Date Time Temp Pulse Resp B/P (MAP) Pulse Ox O2 Delivery O2 Flow Rate FiO2 05/29/19 11:00 97.9 76 18 133/61 (85) 99 Room Air 97.9 Labs: Laboratory Tests Test 05/28/19 12:33 05/28/19 12:40 05/28/19 12:53 05/29/19 04:40 Urine Collection Type Unknown Urine Color Yellow Urine Clarity Clear Urine pH 5.5 Urine Specific [place] 1.015 Urine Protein 30 mg/dL Urine Glucose (UA) Negative mg/dL Urine Ketones (Stick) Negative mg/dL Urine Blood Moderate Urine Nitrite Negative Urine Bilirubin Negative Urine Urobilinogen Dipstick 0.2 mg/dL Urine Leukocyte Esterase Moderate Urine RBC 11-20 /HPF Urine WBC 20-40 /HPF Urine Squamous Epithelial Cells Many /LPF Urine Bacteria Moderate /HPF Stool Occult Blood Positive White Blood Count 5.0 x10^3/uL 6.1 x10^3/uL Red Blood Count 3.57 x10^6/uL 3.70 x10^6/uL Hemoglobin 10.8 g/dL 11.2 g/dL Hematocrit 34.1 % 35.3 % Mean Corpuscular Volume 95 fL 96 fL Mean Corpuscular Hemoglobin 30 pg 30 pg Mean Corpuscular Hemoglobin Concent 32 g/dL 32 g/dL Red Cell Distribution Width 14.5 % 14.5 % Platelet Count 119 x10^3/uL 131 x10^3/uL Neutrophils (%) (Auto) 65 % 57 % Lymphocytes (%) (Auto) 22 % 32 % Monocytes (%) (Auto) 9 % 7 % Eosinophils (%) (Auto) 3 % 3 % Basophils (%) (Auto) 2 % 1 % Neutrophils # (Auto) 3.3 x10^3/uL 3.5 x10^3/uL Lymphocytes # (Auto) 1.1 x10^3/uL 1.9 x10^3/uL Monocytes # (Auto) 0.4 x10^3/uL 0.5 x10^3/uL Eosinophils # (Auto) 0.1 x10^3/uL 0.2 x10^3/uL Basophils # (Auto) 0.1 x10^3/uL 0.1 x10^3/uL Sodium Level 146 mmol/L 142 mmol/L Potassium Level 4.0 mmol/L 4.0 mmol/L Chloride Level 107 mmol/L 105 mmol/L Carbon Dioxide Level 24 mmol/L 21 mmol/L Anion Gap 15 16 Blood Urea Nitrogen 59 mg/dL 64 mg/dL Creatinine 5.2 mg/dL 5.0 mg/dL Estimated GFR (Cockcroft-Gault) 8.2 8.6 BUN/Creatinine Ratio 11 13 Glucose Level 70 mg/dL 88 mg/dL Calcium Level 8.1 mg/dL 8.4 mg/dL Total Bilirubin 0.3 mg/dL 0.4 mg/dL Aspartate Amino Transf (AST/SGOT) 17 U/L 18 U/L Alanine Aminotransferase (ALT/SGPT) 14 U/L 15 U/L Alkaline Phosphatase 75 U/L 74 U/L Total Protein 7.1 g/dL 7.0 g/dL Albumin 3.5 g/dL 3.4 g/dL Albumin/Globulin Ratio 1.0 0.9 Test 05/29/19 09:55 Prothrombin Time 13.5 SEC Prothromb Time International Ratio 1.1 PE: GEN: NAD, daughter present LUNGS: CTAB HEART: RRR, ABD: reducible hernia, soft, vague left-sided tenderness, BS+ NEURO/PSYCH: A & O 3, probably forgetful A/P: ?hematochezia, intermittent left-sided abd pain Chronic anemia - h/o iron and B12 deficiency; scopes UTD -- Don't suspect meaningful bleeding w/ improving Hgb. Try diet, change to PO PPI, okay to resume iron and B12, add Miralax/Dulcolax. Consider GRISELDA VIGIL May 29, 2019 12:02
[2019-05-29] MEDS ORDERED: BISACODYL 5 MG TABLET.DR. PO PRN (12:15)
[2019-05-29] MEDS ORDERED: CYANOCOBALAMIN (VITAMIN B-12) 100 MCG TABLET PO SCH (13:00)
[2019-05-29] MEDS ORDERED: FERROUS SULFATE 325 MG TABLET. PO SCH (13:00)
[2019-05-29] MEDS ORDERED: POLYETHYLENE GLYCOL 3350 17 GM PACKET. PO SCH (14:00)
[2019-05-29 15:00] VITALS: BP 125/64
[2019-05-29] MEDS ORDERED: LACTULOSE 20 GM/30 ML SOLUTION. PO PRN (15:00)
--- NOTE | 2019-05-29 15:50 | NUR ---
SS following for discharge planning. SS reviewed pt chart. Pt is from home and is currently on room air. Pt has dialysis at [facility], ; fax [phone], Sunday, Sunday, and Sunday at 1430. SS will continue to follow for discharge planning. Addendum: 05/29/19 at 1557 by ADRIANA SPARROW CORRECTION TO PREVIOUS NOTE: [facility], ; fax [phone].
[2019-05-29 19:00] VITALS: BP 120/60
[2019-05-29 23:00] VITALS: BP 176/79
[2019-05-30 03:00] VITALS: BP 139/66
[2019-05-30] MEDS: IV NORMAL SALINE 1000ML BAG 1,000 ML IV SCH (03:13)
[2019-05-30 07:00] VITALS: BP 130/66
[2019-05-30] MEDS ORDERED: PANTOPRAZOLE 40 MG TABLET.DR. PO SCH (07:30)
--- NOTE | 2019-05-30 08:21 | PDOC ---
PROGRESS NOTES Chief Complaint Chief Complaint A/P: RECTAL BLEEDING, ACUTE Acute blood loss anemia Large quantity of stool in the colon. No acute inflammation evident. Distention of the right lower quadrant ileal loops of bowel. No obstruction suggested more proximally. possible focal ileus. ESRD on dialysis UTI? Thrombocytopenia History of Present Illness History of Present Illness Ms Murillo is a 69 y/o F w/ PMHx chronic anemia, ESRD on HD, B12 deficiency, HTN, SBO, uterine cancer, nephrolithiasis who comes to ED c/o red blood w/ clots in the toilet for 3 weeks. Missed dialysis 2/2 her LGIB. Hb 10.8. BUN 59, Cr 5.9. Plt 119, fecal occult positive. Large amount of stool and possible ileus on CT. She has had no further bleeding. Feels a bit better today. Has some constipation, no CP or SOB. Vitals Vitals Vital Signs Date Time Temp Pulse Resp B/P (MAP) Pulse Ox O2 Delivery O2 Flow Rate FiO2 05/30/19 03:00 97.9 74 18 139/66 (90) 96 Room Air 97.9 Physical Exam General: Alert, Oriented X3, Cooperative, No acute distress Lungs: Clear, Other Extremities: No cyanosis Labs LABS Laboratory Tests Test 05/29/19 09:55 Prothrombin Time 13.5 SEC (11.7-14.0) Prothromb Time International Ratio 1.1 (0.8-1.1) Assessment and Plan Assessmemt and Plan Problems Medical Problems: (1) Anemia Status: Acute (2) Rectal bleeding Status: Acute (3) UTI (urinary tract infection) Status: Acute Comment Review of Relevant I have reviewed the following items yoel (where applicable) has been applied. Labs Laboratory Tests Test 05/28/19 12:33 05/28/19 12:40 05/28/19 12:53 05/29/19 04:40 Urine Collection Type Unknown Urine Color Yellow Urine Clarity Clear Urine pH 5.5 Urine Specific [place] 1.015 Urine Protein 30 mg/dL (NEG-TRACE) Urine Glucose (UA) Negative mg/dL (NEG) Urine Ketones (Stick) Negative mg/dL (NEG) Urine Blood Moderate (NEG) Urine Nitrite Negative (NEG) Urine Bilirubin Negative (NEG) Urine Urobilinogen Dipstick 0.2 mg/dL (0.2 mg/dL) Urine Leukocyte Esterase Moderate (NEG) Urine RBC 11-20 /HPF (0-2) Urine WBC 20-40 /HPF (0-4) Urine Squamous Epithelial Cells Many /LPF Urine Bacteria Moderate /HPF (0-FEW) Stool Occult Blood Positive (NEG) White Blood Count 5.0 x10^3/uL (4.0-11.0) 6.1 x10^3/uL (4.0-11.0) Red Blood Count 3.57 x10^6/uL (3.50-5.40) 3.70 x10^6/uL (3.50-5.40) Hemoglobin 10.8 g/dL (12.0-15.5) 11.2 g/dL (12.0-15.5) Hematocrit 34.1 % (36.0-47.0) 35.3 % (36.0-47.0) Mean Corpuscular Volume 95 fL (79-100) 96 fL (79-100) Mean Corpuscular Hemoglobin 30 pg (25-35) 30 pg (25-35) Mean Corpuscular Hemoglobin Concent 32 g/dL (31-37) 32 g/dL (31-37) Red Cell Distribution Width 14.5 % (11.5-14.5) 14.5 % (11.5-14.5) Platelet Count 119 x10^3/uL (140-400) 131 x10^3/uL (140-400) Neutrophils (%) (Auto) 65 % (31-73) 57 % (31-73) Lymphocytes (%) (Auto) 22 % (24-48) 32 % (24-48) Monocytes (%) (Auto) 9 % (0-9) 7 % (0-9) Eosinophils (%) (Auto) 3 % (0-3) 3 % (0-3) Basophils (%) (Auto) 2 % (0-3) 1 % (0-3) Neutrophils # (Auto) 3.3 x10^3/uL (1.8-7.7) 3.5 x10^3/uL (1.8-7.7) Lymphocytes # (Auto) 1.1 x10^3/uL (1.0-4.8) 1.9 x10^3/uL (1.0-4.8) Monocytes # (Auto) 0.4 x10^3/uL (0.0-1.1) 0.5 x10^3/uL (0.0-1.1) Eosinophils # (Auto) 0.1 x10^3/uL (0.0-0.7) 0.2 x10^3/uL (0.0-0.7) Basophils # (Auto) 0.1 x10^3/uL (0.0-0.2) 0.1 x10^3/uL (0.0-0.2) Sodium Level 146 mmol/L (136-145) 142 mmol/L (136-145) Potassium Level 4.0 mmol/L (3.5-5.1) 4.0 mmol/L (3.5-5.1) Chloride Level 107 mmol/L (98-107) 105 mmol/L (98-107) Carbon Dioxide Level 24 mmol/L (21-32) 21 mmol/L (21-32) Anion Gap 15 (6-14) 16 (6-14) Blood Urea Nitrogen 59 mg/dL (7-20) 64 mg/dL (7-20) Creatinine 5.2 mg/dL (0.6-1.0) 5.0 mg/dL (0.6-1.0) Estimated GFR (Cockcroft-Gault) 8.2 8.6 BUN/Creatinine Ratio 11 (6-20) 13 (6-20) Glucose Level 70 mg/dL (70-99) 88 mg/dL (70-99) Calcium Level 8.1 mg/dL (8.5-10.1) 8.4 mg/dL (8.5-10.1) Total Bilirubin 0.3 mg/dL (0.2-1.0) 0.4 mg/dL (0.2-1.0) Aspartate Amino Transf (AST/SGOT) 17 U/L (15-37) 18 U/L (15-37) Alanine Aminotransferase (ALT/SGPT) 14 U/L (14-59) 15 U/L (14-59) Alkaline Phosphatase 75 U/L (46-116) 74 U/L (46-116) Total Protein 7.1 g/dL (6.4-8.2) 7.0 g/dL (6.4-8.2) Albumin 3.5 g/dL (3.4-5.0) 3.4 g/dL (3.4-5.0) Albumin/Globulin Ratio 1.0 (1.0-1.7) 0.9 (1.0-1.7) Test 05/29/19 09:55 Prothrombin Time 13.5 SEC (11.7-14.0) Prothromb Time International Ratio 1.1 (0.8-1.1) Laboratory Tests Test 05/29/19 09:55 Prothrombin Time 13.5 SEC (11.7-14.0) Prothromb Time International Ratio 1.1 (0.8-1.1) Microbiology 05/28/19 Blood Culture - Preliminary, Resulted NO GROWTH AFTER 1 DAY Medications Current Medications Famotidine (Pepcid Vial) 20 mg 1X ONCE IVP Last administered on 05/28/19at 13:04; Start 05/28/19 at 12:30; Stop 05/28/19 at 12:31; Status DC Ondansetron HCl (Zofran) 4 mg PRN Q8HRS PRN IV NAUSEA/VOMITING; Start 05/28/19 at 16:00; Stop 05/29/19 at 15:59; Status DC Pantoprazole Sodium (PROTONIX VIAL for IV PUSH) 40 mg DAILYAC IVP Last administered on 05/29/19at 07:52; Start 05/28/19 at 16:30; Stop 05/29/19 at 11:57; Status DC Ciprofloxacin/ Dextrose 100 ml @ 100 mls/hr 1X ONCE IV Last administered on 05/28/19at 19:00; Start 05/28/19 at 19:00; Stop 05/28/19 at 19:59; Status DC Sodium Chloride (Normal Saline Flush) 3 ml QSHIFT PRN IV AFTER MEDS AND BLOOD DRAWS; Start 05/28/19 at 19:00 Sodium Chloride 1,000 ml @ 100 mls/hr Q10H IV Last administered on 05/30/19at 03:13; Start 05/28/19 at 18:50 Ondansetron HCl (Zofran) 4 mg PRN Q4HRS PRN IV NAUSEA/VOMITING; Start 05/28/19 at 19:00 Acetaminophen (Tylenol) 650 mg PRN Q4HRS PRN PO TEMP OVER 100.4F OR MILD PAIN; Start 05/28/19 at 19:00 Clonidine HCl (Catapres) 0.1 mg PRN Q6HRS PRN PO SBP>160 OR DBP>90; Start 05/28/19 at 19:00 Albuterol Sulfate (Ventolin Neb Soln) 2.5 mg PRN Q4HRS PRN NEB SHORTNESS OF BREATH; Start 05/28/19 at 19:00 Guaifenesin (Robitussin) 200 mg PRN Q4HRS PRN PO COUGH; Start 05/28/19 at 19:00 Lorazepam (Ativan) 0.5 mg PRN Q4HRS PRN PO ANXIETY / AGITATION; Start 05/28/19 at 19:00 Pantoprazole Sodium (Protonix) 40 mg DAILYAC PO ; Start 05/30/19 at 07:30 Polyethylene Glycol (miraLAX PACKET) 17 gm DAILY PO Last administered on 05/29/19at 14:09; Start 05/29/19 at 14:00 Bisacodyl (Dulcolax Tab) 5 mg PRN DAILY PRN PO CONSTIPATION; Start 05/29/19 at 12:15 Cyanocobalamin (Vitamin B-12) 100 mcg DAILY PO Last administered on 05/29/19at 14:09; Start 05/29/19 at 13:00 Ferrous Sulfate (Feosol) 325 mg DAILYWBKFT PO Last administered on 05/29/19at 14:09; Start 05/29/19 at 13:00 Lactulose (Lactulose) 20 gm PRN TID PRN PO CONSTIPATION; Start 05/29/19 at 15:00 Active Scripts Active Oxycodone Hcl 5 Mg Tablet 1 Tab PO QID Vitamin D2 (Ergocalciferol (Vitamin D2)) 50,000 Unit Capsule 50,000 Unit PO WEEKLY Folbic Tablet (Cyanocobalamin/Fa/Pyridoxine) 1 Each Tablet 1 Tab PO DAILY Calcitriol 0.25 Mcg Capsule 0.25 Mcg PO DAILY Reported Sodium Bicarbonate 650 Mg Tablet 1,300 Mg PO BID Ferrous Sulfate 325 Mg Tablet 325 Mg PO TIDWMEALS Norvasc (Amlodipine Besylate) 10 Mg Tablet 10 Mg PO DAILY08 Vitals/I & O Vital Sign - Last 24 Hours 05/29/19 05/29/19 05/29/19 05/29/19 11:00 15:00 19:00 19:45 Temp 97.9 98.0 97.7 97.9 98.0 97.7 Pulse 76 72 74 Resp 18 18 18 B/P (MAP) 133/61 (85) 125/64 (84) 120/60 (80) Pulse Ox 99 99 97 O2 Delivery Room Air Room Air Room Air Room Air 05/29/19 05/30/19 23:00 03:00 Temp 97.7 97.9 97.7 97.9 Pulse 79 74 Resp 18 18 B/P (MAP) 176/79 (111) 139/66 (90) Pulse Ox 97 96 O2 Delivery Room Air Room Air Intake and Output 05/29/19 05/29/19 05/30/19 14:59 22:59 06:59 Intake Total 460 ml 2050 ml Balance 460 ml 2050 ml LICO NOBLE MD May 30, 2019 08:21
[2019-05-30] MEDS ORDERED: IV NORMAL SALINE 1000ML BAG 1,000 ML IV PRN ×2 (08:53)
[2019-05-30] MEDS ORDERED: diphenhydrAMINE 50 MG/ML VIAL IV PRN ×2 (09:00)
[2019-05-30] MEDS ORDERED: DIALYSIS PATIENT. MC PRN (09:00)
[2019-05-30] MEDS ORDERED: ACETAMINOPHEN 500 MG TABLET PO PRN (09:00)
--- NOTE | 2019-05-30 10:20 | PDOC ---
SUBJECTIVE ROS Seen on HD No complaints No further bleeding OBJECTIVE Vital Signs Vital Signs Date Time Temp Pulse Resp B/P (MAP) Pulse Ox O2 Delivery O2 Flow Rate FiO2 05/30/19 07:00 97.8 69 18 130/66 (87) 99 Room Air 97.8 I & 0 Intake and Output 05/30/19 07:00 Intake Total 2510 ml Balance 2510 ml Intake Oral 610 ml IV Total 700 ml Other 1200 ml # Voids 3 PHYSICAL EXAM Physical Exam GEN: NAD HEEN: OM moist NECK: Supple CVS: S1S2 RESP: RRR, No Acc. Muscle Use GI: BS + ve, Non Tender, : No CVA tenderness, No Suprapubic Tenderness NEURO- Grossly normal SKIN No rash No Harris DIAGNOSIS/ASSESSMENT Assessment & Plan ESRD- On HD MWF, since December 2017 Seen on HD, tolerating well, continue as ordered, Paulo Celis ? Hematochezia - Gi managing UA abnormal- WBC, RBC +- asymptomatic Per Primary HTN- BP at goal Chronic anemia, +fecal occult positive - Hgb stable Abnormal CT - large amount of stool, possible ileus COMMENT/RELEVANT DATA Meds Current Medications Medications (Trade) Dose Ordered Sig/Rebecca Start Time Stop Time Status Last Admin Dose Admin Acetaminophen (Tylenol) 500 mg 1X PRN PRN 05/30/19 09:00 05/31/19 08:59 Albuterol Sulfate (Ventolin Neb Soln) 2.5 mg PRN Q4HRS PRN 05/28/19 19:00 Bisacodyl (Dulcolax Tab) 5 mg PRN DAILY PRN 05/29/19 12:15 Ciprofloxacin/ Dextrose 100 ml @ 100 mls/hr 1X ONCE 05/28/19 19:00 05/28/19 19:59 DC 05/28/19 19:00 100 MLS/HR Clonidine HCl (Catapres) 0.1 mg PRN Q6HRS PRN 05/28/19 19:00 Cyanocobalamin (Vitamin B-12) 100 mcg DAILY 05/29/19 13:00 05/29/19 14:09 100 MCG Diphenhydramine HCl (Benadryl) 25 mg 1X PRN PRN 05/30/19 09:00 05/31/19 08:59 Famotidine (Pepcid Vial) 20 mg 1X ONCE 05/28/19 12:30 05/28/19 12:31 DC 05/28/19 13:04 20 MG Ferrous Sulfate (Feosol) 325 mg DAILYWBKFT 05/29/19 13:00 05/29/19 14:09 325 MG Guaifenesin (Robitussin) 200 mg PRN Q4HRS PRN 05/28/19 19:00 Info (PHARMACY MONITORING -- do not chart) 1 each PRN DAILY PRN 05/30/19 09:00 Lactulose (Lactulose) 20 gm PRN TID PRN 05/29/19 15:00 Lorazepam (Ativan) 0.5 mg PRN Q4HRS PRN 05/28/19 19:00 Ondansetron HCl (Zofran) 4 mg PRN Q4HRS PRN 05/28/19 19:00 Pantoprazole Sodium (PROTONIX VIAL for IV PUSH) 40 mg DAILYAC 05/28/19 16:30 05/29/19 11:57 DC 05/29/19 07:52 40 MG Pantoprazole Sodium (Protonix) 40 mg DAILYAC 05/30/19 07:30 Polyethylene Glycol (miraLAX PACKET) 17 gm DAILY 05/29/19 14:00 05/29/19 14:09 17 GM Sodium Chloride 1,000 ml @ 400 mls/hr Q2H30M PRN 05/30/19 08:53 05/30/19 20:52 Sodium Chloride (Normal Saline Flush) 3 ml QSHIFT PRN 05/28/19 19:00 Results All relevant outside records, renal labs, imaging studies, telemetry/EKG's were reviewed. MAIRA PATIÑO MD May 30, 2019 10:20
--- NOTE | 2019-05-30 11:26 | PDOC ---
Subjective: Subjective: No bleeding, ready to go home. Objective: Objective: No GI concerns per nurse. Vital Signs: Vital Signs Date Time Temp Pulse Resp B/P (MAP) Pulse Ox O2 Delivery O2 Flow Rate FiO2 05/30/19 07:00 97.8 69 18 130/66 (87) 99 Room Air 97.8 Labs: BLOOD CULTURE Preliminary NO GROWTH AFTER 1 DAY PE: GEN: NAD - dialyzing LUNGS: CTAB HEART: RRR ABD: NABS, S/ND/NT NEURO/PSYCH: A & O 3 A/P: ?hematochezia - resolved Chronic anemia - h/o iron and B12 deficiency; scopes UTD -- DC per primary. GRISELDA EVANS May 30, 2019 11:26
--- NOTE | 2019-05-30 14:34 | PDOC3 ---
Discharge Summary Visit Information Date of Admission: May 28, 2019 Date of Discharge: May 30, 2019 Admitting Diagnosis: Rectal bleeding Final Diagnosis Problems Medical Problems: (1) Anemia Status: Acute (2) Rectal bleeding Status: Acute (3) UTI (urinary tract infection) Status: Acute Brief Hospital Course Allergies Allergies Coded Allergies Type Severity Reaction Last Updated Verified Penicillins Allergy Intermediate rash 05/07/18 Yes Vital Signs Vital Signs Date Time Temp Pulse Resp B/P (MAP) Pulse Ox O2 Delivery O2 Flow Rate FiO2 05/30/19 07:00 97.8 69 18 130/66 (87) 99 Room Air 97.8 Lab Results Laboratory Tests Test 05/29/19 04:40 05/29/19 09:55 White Blood Count 6.1 x10^3/uL (4.0-11.0) Red Blood Count 3.70 x10^6/uL (3.50-5.40) Hemoglobin 11.2 g/dL (12.0-15.5) Hematocrit 35.3 % (36.0-47.0) Mean Corpuscular Volume 96 fL (79-100) Mean Corpuscular Hemoglobin 30 pg (25-35) Mean Corpuscular Hemoglobin Concent 32 g/dL (31-37) Red Cell Distribution Width 14.5 % (11.5-14.5) Platelet Count 131 x10^3/uL (140-400) Neutrophils (%) (Auto) 57 % (31-73) Lymphocytes (%) (Auto) 32 % (24-48) Monocytes (%) (Auto) 7 % (0-9) Eosinophils (%) (Auto) 3 % (0-3) Basophils (%) (Auto) 1 % (0-3) Neutrophils # (Auto) 3.5 x10^3/uL (1.8-7.7) Lymphocytes # (Auto) 1.9 x10^3/uL (1.0-4.8) Monocytes # (Auto) 0.5 x10^3/uL (0.0-1.1) Eosinophils # (Auto) 0.2 x10^3/uL (0.0-0.7) Basophils # (Auto) 0.1 x10^3/uL (0.0-0.2) Sodium Level 142 mmol/L (136-145) Potassium Level 4.0 mmol/L (3.5-5.1) Chloride Level 105 mmol/L (98-107) Carbon Dioxide Level 21 mmol/L (21-32) Anion Gap 16 (6-14) Blood Urea Nitrogen 64 mg/dL (7-20) Creatinine 5.0 mg/dL (0.6-1.0) Estimated GFR (Cockcroft-Gault) 8.6 BUN/Creatinine Ratio 13 (6-20) Glucose Level 88 mg/dL (70-99) Calcium Level 8.4 mg/dL (8.5-10.1) Total Bilirubin 0.4 mg/dL (0.2-1.0) Aspartate Amino Transf (AST/SGOT) 18 U/L (15-37) Alanine Aminotransferase (ALT/SGPT) 15 U/L (14-59) Alkaline Phosphatase 74 U/L (46-116) Total Protein 7.0 g/dL (6.4-8.2) Albumin 3.4 g/dL (3.4-5.0) Albumin/Globulin Ratio 0.9 (1.0-1.7) Prothrombin Time 13.5 SEC (11.7-14.0) Prothromb Time International Ratio 1.1 (0.8-1.1) Brief Hospital Course Ms Murillo is a 69 y/o F w/ PMHx chronic anemia, ESRD on HD, B12 deficiency, HTN, SBO, uterine cancer, nephrolithiasis who comes to ED c/o red blood w/ clots in the toilet for 3 weeks. Missed dialysis 2/2 her LGIB. Hb 10.8. BUN 59, Cr 5.9. Plt 119, fecal occult positive. Large amount of stool and possible ileus on CT. She was seen by GI, appears to be a self-limiting bleed likely diverticular or hemorrhoidal. Seen by nephrology for dialysis. Tolerated dialysis well. She has had no further bleeding. Feels a bit better today. Has some constipa tion, no CP or SOB. A/P: RECTAL BLEEDING, ACUTE Acute blood loss anemia Large quantity of stool in the colon. No acute inflammation evident. Distention of the right lower quadrant ileal loops of bowel. No obstruction suggested more proximally. possible focal ileus. ESRD on dialysis UTI? Thrombocytopenia Greater than 30 minutes spent on d/c Discharge Information Condition at Discharge: Improved Follow Up: Weeks (1) Disposition/Orders: D/C to Home Scheduled Amlodipine Besylate (Norvasc) 10 Mg Tablet, 10 MG PO DAILY08, (Reported) Entered as Reported by: DRU RIVERA on 09/04/13 1000 Calcitriol (Calcitriol) 0.25 Mcg Capsule, 0.25 MCG PO DAILY, #30 Ref 0 Prescribed by: LEONIDAS BARRETT MD on 12/07/16 1218 Cyanocobalamin/Fa/Pyridoxine (Folbic Tablet) 1 Each Tablet, 1 TAB PO DAILY, #30 Ref 0 Prescribed by: LEONIDAS BARRETT MD on 12/07/16 1218 Ergocalciferol (Vitamin D2) (Vitamin D2) 50,000 Unit Capsule, 50,000 UNIT PO WEEKLY, #14 Ref 0 Prescribed by: LEONIDAS BARRETT MD on 12/07/16 1218 Ferrous Sulfate (Ferrous Sulfate) 325 Mg Tablet, 325 MG PO TIDWMEALS, (Reported) Entered as Reported by: EMELY RODRÍGUEZ on 06/10/17 1102 Oxycodone Hcl (Oxycodone Hcl Immed.release ) 5 Mg Tablet, 1 TAB PO QID, #20 Prescribed by: Enid Isaacs APRN on 04/15/18 1620 Sodium Bicarbonate (Sodium Bicarbonate) 650 Mg Tablet, 1,300 MG PO BID, (Reported) Entered as Reported by: EMELY RODRÍGUEZ on 06/10/17 1102 LICO NOBLE MD May 30, 2019 14:34
--- NOTE | 2019-05-30 14:42 | NUR ---
SS following up with discharge planning. SS phoned and faxed discharge and clinical to [facility], ; fax [phone]. Discharge order on the chart for home with self care.
[2019-05-30 15:00] VITALS: BP 136/75
--- NOTE | 2019-05-30 16:18 | NUR ---
Discharge Note: WILLOW HERR Discharge instructions and discharge home medications reviewed with Patient and a copy given. All questions have been answered and understanding verbalized. The following instructions and handouts were given: Diet,activity, medication list and follow up instructions provided to patient. Discontinued lines and drains: Peripheral IV discontinued with catheter intact. Patient discharged to Home or Self Care with Family Member via Wheelchair
== END 2019-05-30 15:35 | disposition home or self-care (01) | DRG 377 ==
LOC: ER 11:40 → 4 NORTH 15:15
PROVIDERS: ADMIT Family Medicine; ATTEND Family Medicine
PROC: 5A1D70Z Performance of Urinary Filtration, Intermittent, Less than 6 Hours Per Day (ICD-10-PCS; 2019-05-29)
PROC: 5A1D70Z Performance of Urinary Filtration, Intermittent, Less than 6 Hours Per Day (ICD-10-PCS; principal; 2019-05-30)
DX: K92.2 Gastrointestinal hemorrhage, unspecified (principal); N18.6 End stage renal disease; D62 Acute posthemorrhagic anemia; N39.0 Urinary tract infection, site not specified; I12.0 Hypertensive chronic kidney disease with stage 5 chronic kidney disease or end stage renal disease; K56.609 Unspecified intestinal obstruction, unspecified as to partial versus complete obstruction; Z99.2 Dependence on renal dialysis; E53.8 Deficiency of other specified B group vitamins; C55 Malignant neoplasm of uterus, part unspecified; D69.6 Thrombocytopenia, unspecified; F03.90 Unspecified dementia, unspecified severity, without behavioral disturbance, psychotic disturbance, mood disturbance, and anxiety; F32.9 Major depressive disorder, single episode, unspecified; J44.9 Chronic obstructive pulmonary disease, unspecified; K21.9 Gastro-esophageal reflux disease without esophagitis; M10.9 Gout, unspecified; M19.90 Unspecified osteoarthritis, unspecified site; N20.0 Calculus of kidney; Z82.0 Family history of epilepsy and other diseases of the nervous system; Z82.3 Family history of stroke; Z82.49 Family history of ischemic heart disease and other diseases of the circulatory system; Z85.038 Personal history of other malignant neoplasm of large intestine; Z85.42 Personal history of malignant neoplasm of other parts of uterus; Z87.442 Personal history of urinary calculi; Z90.49 Acquired absence of other specified parts of digestive tract; Z90.710 Acquired absence of both cervix and uterus
CPT/HCPCS: 36415; 74176; 80053; 81001; 82274; 85025; 85610; 87040; 87086; 87186; 96365; 96375; C9113; J0744; J3490; J7030; 99285-25; G0378

== ENCOUNTER 2020-02-20 17:58 | Inpatient (IN) | payer MEDICARE, MEDICAID ==
[~2020-02-20] VITALS: Ht 165.1 cm; Wt 63.9 kg
--- NOTE | 2020-02-20 19:04 | PHYS DOC ---
Past Medical History Past Medical History: Cancer, Dementia, Hypertension, Renal Disease, Renal Failure, UTI, Other Additional Past Medical Histor: intestinal cancer,BLOOD TRANSFUSION, UMBILICAL HERNIA, confusion Past Surgical History: Appendectomy, Hysterectomy, Other Additional Past Surgical Histo: "intestines removed",HERNIA REPAIR,DIALYSIS FISTULA RT UPPER ARM Smoking Status: Never Smoker Alcohol Use: Occasionally Drug Use: None General Adult EDM: Chief Complaint: SHORTNESS OF BREATH HPI: HPI: Patient is a 69 year oldixh-orng-zaz female past medical history end-stage renal disease dialysis Sunday hypertension asthma presents with a chief complaint of shortness of breath fever chills. Patient states she started to feel chills with shortness of breath while at dialysis this afternoon. On arrival patient had a fever of 103.2. She is had an oxygen saturation of 50% on room air. Patient states she feels as if she has a head cold. She is short of breath with exertion. Patient appears to very dyspneic with speaking. She denies any associated chest pain. Review of Systems: Review of Systems: Constitutional: Positive fever Eyes: Denies change in visual acuity. [] HENT: Positive congestion Respiratory: Shortness of breath positive cough Cardiovascular: Denies chest pain or edema. [] GI: Denies abdominal pain, nausea, vomiting, bloody stools or diarrhea. [] : Denies dysuria. [] Musculoskeletal: Denies back pain or joint pain. [] Integument: Denies rash. [] Neurologic: Denies headache, focal weakness or sensory changes. [] Endocrine: Denies polyuria or polydipsia. [] Lymphatic: Denies swollen glands. [] Psychiatric: Denies depression or anxiety. [] Heart Score: Risk Factors: Risk Factors: DM, Current or recent (<one month) smoker, HTN, HLP, family history of CAD, obesity. Risk Scores: Score 0 - 3: 2.5% MACE over next 6 weeks - Discharge Home Score 4 - 6: 20.3% MACE over next 6 weeks - Admit for Clinical Observation Score 7 - 10: 72.7% MACE over next 6 weeks - Early Invasive Strategies Allergies: Allergies: Allergies Coded Allergies Type Severity Reaction Last Updated Verified Penicillins Allergy Intermediate rash 05/07/18 Yes Physical Exam: PE: Constitutional: Well developed, well nourished, distress HENT: Normocephalic, atraumatic, Eyes: , EOMI, conjunctiva normal, no discharge. [] Neck: Normal range of motion, no tenderness, supple, no murmur [] Lungs & Thorax: Dyspneic with speaking, hypoxic but does not appear to be any respiratory distress, tachypneic Skin: Warm, dry, no erythema, no rash. [] Extremities: No tenderness, no cyanosis, no clubbing, ROM intact, edema bilateral lower extremities left greater than right Neurologic: Alert and oriented X 3, normal motor function, normal sensory function, no focal deficits noted. [] Psychologic: Affect normal, judgement normal, mood normal. [] Current Patient Data: Vital Signs: Vital Signs Date Time Temp Pulse Resp B/P (MAP) Pulse Ox O2 Delivery O2 Flow Rate FiO2 02/20/20 17:58 103.2 105 24 204/85 (124) 50 Room Air 103.2 EKG: EKG: EKG taken at 1811 heart rate [address] elevation no ST depression no acute [place] [] Radiology/Procedures: Radiology/Procedures: [] Impression: AP view was taken of the chest. There are rounded appearing densities bilaterally possible multiple nodules from metastatic disease. A rounded nodular infiltrate or pneumonia can have this pattern. There is no pleural effusion. I do not have a recent study for comparison. Heart is enlarged. There is Paratracheal soft tissue fullness suggest possible adenopathy. IMPRESSION: 1. Bilateral areas of infiltrate. 2. Rounded areas of density possible metastatic disease or nodules in the lungs, CT would be of benefit. 3. Widening of the mediastinum possible adenopathy. Comparison: Chest radiograph the same day Findings: Much more apparent than chest radiograph, there are severe bilateral infiltrates greatest of the lower lobes bilaterally but also involvement of the upper lobes and right middle lobe. There are also some areas of ground glass density present. There is no pneumothorax. There are probably trace pleural effusions. There is coronary calcification. Thoracic aortic caliber is within normal limits, no intraluminal flap. There is distention of azygous. Main pulmonary artery is dilated about 4.1 cm. No central pulmonary embolism is identified, limited evaluation of the smaller and more distal branches due to motion, no obvious embolism. Impression: 1. There are severe bilateral infiltrates greatest of the lower lobes although variable involvement of the other lobes. 2. There is coronary calcification. 3. Main pulmonary artery dilatation suggests pulmonary hypertension. Course & Med Decision Making: Course & Med Decision Making Pertinent Labs and Imaging studies reviewed. (See chart for details) [] Patient admitted to ICU- Treatment for hypertension-- Hydralazine 10mg IVP. Bilateral infiltrates on Xray-- Treated with Rocephin and Zithromax BNP > 24,000 Treated with lasix. 2015hrs patients O2 sats dropped to the 80's on 15L NRP. ABG drawn Resp Alk - ph 7.2 co2 60's WIll trial HFNC Discussed patient with Dr Pruitt- 2044hrs. Discussed patient with Dr Rain- 2099hrs Requests Solumedrol 80mg IVP x1 now and 40mg IV BIP. Discussed patient with Dr Ortiz @ 2114hrs Souleymane Disclaimer: Souleymane Disclaimer: This electronic medical record was generated, in whole or in part, using a voice recognition dictation system. Departure Departure Impression: Primary Impression: Person under investigation for COVID-19 Additional Impressions: ESRD (end stage renal disease) Pneumonia Disposition: ADMITTED INPATIENT Condition: GUARDED Referrals: J CARLOS PRABHAKAR MD (PCP) Justicifation of Admission Dx: Justifications for Admission: Justification of Admission Dx: Yes Respiratory Failure: Severe Resp Distress GISEL QUEVEDO I DO Feb 20, 2020 19:04
--- NOTE | 2020-02-20 19:16 | RAD ---
AP chest. HISTORY: Short of breath AP view was taken of the chest. There are rounded appearing densities bilaterally possible multiple nodules from metastatic disease. A rounded nodular infiltrate or pneumonia can have this pattern. There is no pleural effusion. I do not have a recent study for comparison. Heart is enlarged. There is Paratracheal soft tissue fullness suggest possible adenopathy. IMPRESSION: 1. Bilateral areas of infiltrate. 2. Rounded areas of density possible metastatic disease or nodules in the lungs, CT would be of benefit. 3. Widening of the mediastinum possible adenopathy. Electronically signed by: Richard Ravi MD (02/20/2020 7:13 PM) [facility]
[2020-02-20 19:24] LABS: BASO % 0 % (0-3); EOS % 0 % (0-3); HEMOGLOBIN 9.8 g/dL (12.0-15.5); LYMPH # 0.6 x10^3/uL (1.0-4.8); LYMPH % 23 % (24-48); MEAN CORPUSCULAR HEMOGLOBIN 32 pg (25-35); MEAN CORPUSCULAR HGB CONC 33 g/dL (31-37); MEAN CORPUSCULAR VOLUME 97 fL (79-100); MONO # 0.2 x10^3/uL (0.0-1.1); MONO % 9 % (0-9); NEUT # 1.9 x10^3/uL (1.8-7.7); NEUT % 68 % (31-73); PLATELET COUNT 61 x10^3/uL (140-400); RED BLOOD COUNT 3.09 x10^6/uL (3.50-5.40); RED CELL DISTRIBUTION WIDTH 15.5 % (11.5-14.5); WHITE BLOOD COUNT 2.8 x10^3/uL (4.0-11.0)
[2020-02-20] MEDS ORDERED: AZITHROMYCIN 500 MG in IV NORMAL SALINE 250ML 250 ML IV ONE (19:30)
[2020-02-20] MEDS ORDERED: AZITHRMYCN 500MG IVPB FOR OMNI 250 ML IV ONE (19:30)
[2020-02-20] MEDS ORDERED: ACETAMINOPHEN 500 MG TABLET PO ONE (19:30)
[2020-02-20] MEDS ORDERED: ONDANSETRON PF 4 MG/2 ML VIAL. IV PRN (19:30)
[2020-02-20] MEDS ORDERED: cefTRIAXone IV Push 1 GM VIAL. IVP ONE (19:30)
[2020-02-20 19:36] LABS: CALCIUM 7.9 mg/dL (8.5-10.1); CREATININE 2.3 mg/dL (0.6-1.0); POTASSIUM 3.4 mmol/L (3.5-5.1)
[2020-02-20 19:39] LABS: PROTHROMBIN TIME PATIENT 12.3 SEC (11.7-14.0)
[2020-02-20 19:41] LABS: ALBUMIN 3.1 g/dL (3.4-5.0); ALBUMIN/GLOBULIN RATIO 0.9 (1.0-1.7); TOTAL BILIRUBIN 0.3 mg/dL (0.2-1.0); TOTAL PROTEIN 6.7 g/dL (6.4-8.2)
--- NOTE | 2020-02-20 19:53 | PDOC1 ---
History and Physical Date of Admission: Date of Admission DATE: 02/20/20 TIME: 19:47 Chief Complaint: Problems: (1) Syncope (2) Hypomagnesemia (3) Normocytic anemia (4) Hypocalcemia (5) Pneumonia (6) Complication, dialysis catheter clot or failure (7) Radius fracture (8) Fracture of ulnar styloid (9) Radius fracture (10) Fracture of ulnar styloid (11) Distal radius fracture, left (12) Fall from standing (13) Anemia (14) UTI (urinary tract infection) (15) Rectal bleeding Chief Complain: Shortness of breath fevers chills weakness History of Present Illness: HPI: This is a elderly -S[place] female who is on dialysis She was at dialysis today and began developing fevers and weakness and chills She was quite hypoxic when she arrived to the ER into the 50s She also has associated cough shortness of breath Chest x-ray showing bilateral infiltrates She rates her symptoms a 10 out of 10 she had associated anxiety I discussed the case with ER physician the patient clinically appears quite ill she is going to be admitted with COVID protocol Past Medical/Surgical History: PMH/PSH: Past Medical History: Cancer, Dementia, Hypertension, Renal Disease, Renal Failure, UTI, Other Additional Past Medical Histor: intestinal cancer,BLOOD TRANSFUSION, UMBILICAL HERNIA, confusion Past Surgical History: Appendectomy, Hysterectomy, Other Additional Past Surgical Histo: "intestines removed",HERNIA REPAIR,DIALYSIS FISTULA RT UPPER ARM Smoking Status: Never Smoker Allergies: Allergies: Coded Allergies: Penicillins (Verified Allergy, Intermediate, rash, 02/20/20) Has tolerated ceftriaxone Family History: Family History: Coronary artery disease Social History: Social History: She does not drink smoke or take drugs Current Medications: Current Medications Current Medications Ceftriaxone Sodium (Rocephin) 1 gm 1X ONCE IVP Last administered on 02/20/20at 19:37; Start 02/20/20 at 19:30; Stop 02/20/20 at 19:31; Status DC Azithromycin 500 mg/Sodium Chloride 250 ml @ 250 mls/hr 1X ONCE IV ; Start at 19:30; Stop 02/20/20 at 20:29; Status Cancel Acetaminophen (Tylenol) 1,000 mg 1X ONCE PO Last administered on 02/20/20at 19:37; Start 02/20/20 at 19:30; Stop 02/20/20 at 19:31; Status DC Azithromycin 250 ml @ 250 mls/hr 1X ONCE IV Last administered on 02/20/20at 19:37; Start 02/20/20 at 19:30; Stop 02/20/20 at 20:29 Ondansetron HCl (Zofran) 4 mg PRN Q8HRS PRN IV NAUSEA/VOMITING; Start 02/20/20 at 19:30; Stop 02/21/20 at 19:29 Active Scripts Active Oxycodone Hcl Immed.release (Oxycodone Hcl) 5 Mg Tablet 1 Tab PO QID Vitamin D2 (Ergocalciferol (Vitamin D2)) 50,000 Unit Capsule 50,000 Unit PO WEEKLY Folbic Tablet (Cyanocobalamin/Fa/Pyridoxine) 1 Each Tablet 1 Tab PO DAILY Calcitriol 0.25 Mcg Capsule 0.25 Mcg PO DAILY Reported Sodium Bicarbonate 650 Mg Tablet 1,300 Mg PO BID Ferrous Sulfate 325 Mg Tablet 325 Mg PO TIDWMEALS Norvasc (Amlodipine Besylate) 10 Mg Tablet 10 Mg PO DAILY08 ROS: Review of Systems Difficult to obtain as the patient is so sick and weak she can barely talk She does however complain of shortness of breath and cough and weakness Physical Exam: Vital Signs: Vital Signs Date Time Temp Pulse Resp B/P (MAP) Pulse Ox O2 Delivery O2 Flow Rate FiO2 02/20/20 19:30 101.4 101.4 02/20/20 17:58 105 24 204/85 (124) 50 Room Air Physcial Exam: GEN: Extremely ill appears anxious short of breath tachypneic tachycardic and hypoxic HEENT: Oral mucosa is dry extract muscles seem to be intact no JVD EYES: Extraocular muscles are intact, pupil are equally round and reactive to light and accommodation MUSCULOSKELETAL: Well developed , well nourished, good range of motion ENDOCRINE: No thyromegaly was palpated LYMPHATICS: No cervical chain or axillary nodes were noted HEMATOPOIETIC: No bruising NECK: Supple, no JVD, no thyromegaly was noted LUNGS: Coarse throughout all lung frank HEART: Tachycardic S1-S2 ABDOMEN: Very distended but she has a chronic ventral hernia there is an old incision that is healed EXTREMITIES: 1+ edema NEUROLOGIC: She can barely talk she does move her arms and wiggles her toes but is probably encephalopathic as well she seems confused PSYCHIATRIC: Extremely anxious SKIN: No ulcerations or rashes, good skin turgor, no jaundice VASCULAR: Good capillary refill, neurovascular bundle appears to be intact Labs: Labs: Laboratory Tests Test 02/20/20 19:15 White Blood Count 2.8 x10^3/uL (4.0-11.0) Red Blood Count 3.09 x10^6/uL (3.50-5.40) Hemoglobin 9.8 g/dL (12.0-15.5) Hematocrit 30.0 % (36.0-47.0) Mean Corpuscular Volume 97 fL (79-100) Mean Corpuscular Hemoglobin 32 pg (25-35) Mean Corpuscular Hemoglobin Concent 33 g/dL (31-37) Red Cell Distribution Width 15.5 % (11.5-14.5) Platelet Count 61 x10^3/uL (140-400) Neutrophils (%) (Auto) 68 % (31-73) Lymphocytes (%) (Auto) 23 % (24-48) Monocytes (%) (Auto) 9 % (0-9) Eosinophils (%) (Auto) 0 % (0-3) Basophils (%) (Auto) 0 % (0-3) Neutrophils # (Auto) 1.9 x10^3/uL (1.8-7.7) Lymphocytes # (Auto) 0.6 x10^3/uL (1.0-4.8) Monocytes # (Auto) 0.2 x10^3/uL (0.0-1.1) Eosinophils # (Auto) 0.0 x10^3/uL (0.0-0.7) Basophils # (Auto) 0.0 x10^3/uL (0.0-0.2) Prothrombin Time 12.3 SEC (11.7-14.0) Prothromb Time International Ratio 1.0 (0.8-1.1) Activated Partial Thromboplast Time 37 SEC (24-38) Sodium Level 138 mmol/L (136-145) Potassium Level 3.4 mmol/L (3.5-5.1) Chloride Level 100 mmol/L (98-107) Carbon Dioxide Level 31 mmol/L (21-32) Anion Gap 7 (6-14) Blood Urea Nitrogen 10 mg/dL (7-20) Creatinine 2.3 mg/dL (0.6-1.0) Estimated GFR (Cockcroft-Gault) 21.0 BUN/Creatinine Ratio 4 (6-20) Glucose Level 112 mg/dL (70-99) Calcium Level 7.9 mg/dL (8.5-10.1) Total Bilirubin 0.3 mg/dL (0.2-1.0) Aspartate Amino Transf (AST/SGOT) 32 U/L (15-37) Alanine Aminotransferase (ALT/SGPT) 16 U/L (14-59) Alkaline Phosphatase 44 U/L (46-116) Troponin I Quantitative 0.113 ng/mL (0.000-0.055) LS-Ebb-F-Type Natriuretic Peptide 44885 pg/mL (0-124) Total Protein 6.7 g/dL (6.4-8.2) Albumin 3.1 g/dL (3.4-5.0) Albumin/Globulin Ratio 0.9 (1.0-1.7) Laboratory Tests Test 02/20/20 19:15 White Blood Count 2.8 x10^3/uL (4.0-11.0) Red Blood Count 3.09 x10^6/uL (3.50-5.40) Hemoglobin 9.8 g/dL (12.0-15.5) Hematocrit 30.0 % (36.0-47.0) Mean Corpuscular Volume 97 fL (79-100) Mean Corpuscular Hemoglobin 32 pg (25-35) Mean Corpuscular Hemoglobin Concent 33 g/dL (31-37) Red Cell Distribution Width 15.5 % (11.5-14.5) Platelet Count 61 x10^3/uL (140-400) Neutrophils (%) (Auto) 68 % (31-73) Lymphocytes (%) (Auto) 23 % (24-48) Monocytes (%) (Auto) 9 % (0-9) Eosinophils (%) (Auto) 0 % (0-3) Basophils (%) (Auto) 0 % (0-3) Neutrophils # (Auto) 1.9 x10^3/uL (1.8-7.7) Lymphocytes # (Auto) 0.6 x10^3/uL (1.0-4.8) Monocytes # (Auto) 0.2 x10^3/uL (0.0-1.1) Eosinophils # (Auto) 0.0 x10^3/uL (0.0-0.7) Basophils # (Auto) 0.0 x10^3/uL (0.0-0.2) Prothrombin Time 12.3 SEC (11.7-14.0) Prothromb Time International Ratio 1.0 (0.8-1.1) Activated Partial Thromboplast Time 37 SEC (24-38) Sodium Level 138 mmol/L (136-145) Potassium Level 3.4 mmol/L (3.5-5.1) Chloride Level 100 mmol/L (98-107) Carbon Dioxide Level 31 mmol/L (21-32) Anion Gap 7 (6-14) Blood Urea Nitrogen 10 mg/dL (7-20) Creatinine 2.3 mg/dL (0.6-1.0) Estimated GFR (Cockcroft-Gault) 21.0 BUN/Creatinine Ratio 4 (6-20) Glucose Level 112 mg/dL (70-99) Calcium Level 7.9 mg/dL (8.5-10.1) Total Bilirubin 0.3 mg/dL (0.2-1.0) Aspartate Amino Transf (AST/SGOT) 32 U/L (15-37) Alanine Aminotransferase (ALT/SGPT) 16 U/L (14-59) Alkaline Phosphatase 44 U/L (46-116) Troponin I Quantitative 0.113 ng/mL (0.000-0.055) RK-Fyv-U-Type Natriuretic Peptide 01961 pg/mL (0-124) Total Protein 6.7 g/dL (6.4-8.2) Albumin 3.1 g/dL (3.4-5.0) Albumin/Globulin Ratio 0.9 (1.0-1.7) Images: Images Chest x-ray shows bilateral infiltrates Assessment/Plan Assessment/Plan Probable COVID-19 with respiratory failure hypoxia fevers chills and bilateral infiltrates Plan COVID protocol including IV antibiotics (broad-spectrum plus azithromycin) Consult infectious disease Consult pulmonary Duo nebs Titrate O2 to keep sats greater than 90 We will try to get her home meds going Consult nephrology for dialysis management Trend labs Multiple vitamin Consider steroids and/or plasma and or Remdesivir if infectious disease and pulmonary agree Prognosis extremely guarded I am concerned she may not survive this Justicifation of Admission Dx: Justifications for Admission: Justification of Admission Dx: Yes Respiratory Failure: Severe Resp Distress ALICIA FLORENCE III DO Feb 20, 2020 19:53
[2020-02-20] MEDS ORDERED: hydrALAZINE 20 MG/ML VIAL. IVP ONE (20:00)
[2020-02-20] MEDS ORDERED: IOHEXOL 350 MG/ML 100 ML VIAL. IV ONE (20:00)
[2020-02-20] MEDS ORDERED: CONTRAST GIVEN. MC PRN (20:00)
[2020-02-20] MEDS ORDERED: methylPREDNISolone SOD SUCC PF 40 MG/ML VIAL. ONE (20:56)
[2020-02-20] MEDS ORDERED: FUROSEMIDE 40 MG/4 ML VIAL. IVP ONE (21:00)
[2020-02-20 21:06] LABS: BASE EXCESS ABG -1 mmol/L (-3-3); CORRECTED PCO2 ABG 64 mmHg; CORRECTED PH ABG 7.25; CORRECTED PO2 ABG 72 mmHg; HCO3 ABG 27 mmol/L (21-28); PCO2 ABG 59 mmHg (35-46); PO2 ABG 62 mmHg (65-108); SAT O2 ABG 85 % (92-99)
[2020-02-20] MEDS ORDERED: methylPREDNISolone SOD SUCC PF 40 MG/ML VIAL. IV ONE (21:15)
[2020-02-20 21:22] LABS: FIO2 ABG 100
--- NOTE | 2020-02-20 22:54 | RAD ---
Chest CTA History: Dyspnea, abnormal chest x-ray Technique: After bolus of intravenous contrast, CT imaging was performed of the chest. Multiplanar reconstruction images to include MIP reconstruction images are submitted. Exposure: One or more of the following individualized dose reduction techniques were utilized for this examination: 1. Automated exposure control 2. Adjustment of the mA and/or kV according to patient size 3. Use of iterative reconstruction technique. Comparison: Chest radiograph the same day Findings: Much more apparent than chest radiograph, there are severe bilateral infiltrates greatest of the lower lobes bilaterally but also involvement of the upper lobes and right middle lobe. There are also some areas of ground glass density present. There is no pneumothorax. There are probably trace pleural effusions. There is coronary calcification. Thoracic aortic caliber is within normal limits, no intraluminal flap. There is distention of azygous. Main pulmonary artery is dilated about 4.1 cm. No central pulmonary embolism is identified, limited evaluation of the smaller and more distal branches due to motion, no obvious embolism. Impression: 1. There are severe bilateral infiltrates greatest of the lower lobes although variable involvement of the other lobes. 2. There is coronary calcification. 3. Main pulmonary artery dilatation suggests pulmonary hypertension. Electronically signed by: Kem Nicole MD (02/20/2020 10:51 PM) [facility]
[2020-02-20] MEDS ORDERED: NOREPINEPHRINE VIAL 8 MG in IV DEXTROSE 5% 250 ML IV ONE (23:45)
[2020-02-21] VITALS (17 sets, daily range): BP systolic 92–190; BP diastolic 54–96
--- NOTE | 2020-02-21 06:15 | PDOC ---
Infectious Disease Note Vital Sign Vital Signs Vital Signs Date Time Temp Pulse Resp B/P (MAP) Pulse Ox O2 Delivery O2 Flow Rate FiO2 02/21/20 04:00 64 24 92/54 (67) 100 BiPAP/CPAP 02/21/20 02:15 97.7 97.7 02/20/20 21:13 15.0 Labs Lab Laboratory Tests Test 02/20/20 19:15 02/20/20 21:06 White Blood Count 2.8 x10^3/uL (4.0-11.0) Red Blood Count 3.09 x10^6/uL (3.50-5.40) Hemoglobin 9.8 g/dL (12.0-15.5) Hematocrit 30.0 % (36.0-47.0) Mean Corpuscular Volume 97 fL (79-100) Mean Corpuscular Hemoglobin 32 pg (25-35) Mean Corpuscular Hemoglobin Concent 33 g/dL (31-37) Red Cell Distribution Width 15.5 % (11.5-14.5) Platelet Count 61 x10^3/uL (140-400) Neutrophils (%) (Auto) 68 % (31-73) Lymphocytes (%) (Auto) 23 % (24-48) Monocytes (%) (Auto) 9 % (0-9) Eosinophils (%) (Auto) 0 % (0-3) Basophils (%) (Auto) 0 % (0-3) Neutrophils # (Auto) 1.9 x10^3/uL (1.8-7.7) Lymphocytes # (Auto) 0.6 x10^3/uL (1.0-4.8) Monocytes # (Auto) 0.2 x10^3/uL (0.0-1.1) Eosinophils # (Auto) 0.0 x10^3/uL (0.0-0.7) Basophils # (Auto) 0.0 x10^3/uL (0.0-0.2) Prothrombin Time 12.3 SEC (11.7-14.0) Prothromb Time International Ratio 1.0 (0.8-1.1) Activated Partial Thromboplast Time 37 SEC (24-38) Sodium Level 138 mmol/L (136-145) Potassium Level 3.4 mmol/L (3.5-5.1) Chloride Level 100 mmol/L (98-107) Carbon Dioxide Level 31 mmol/L (21-32) Anion Gap 7 (6-14) Blood Urea Nitrogen 10 mg/dL (7-20) Creatinine 2.3 mg/dL (0.6-1.0) Estimated GFR (Cockcroft-Gault) 21.0 BUN/Creatinine Ratio 4 (6-20) Glucose Level 112 mg/dL (70-99) Lactic Acid Level 1.3 mmol/L (0.4-2.0) Calcium Level 7.9 mg/dL (8.5-10.1) Total Bilirubin 0.3 mg/dL (0.2-1.0) Aspartate Amino Transf (AST/SGOT) 32 U/L (15-37) Alanine Aminotransferase (ALT/SGPT) 16 U/L (14-59) Alkaline Phosphatase 44 U/L (46-116) Troponin I Quantitative 0.113 ng/mL (0.000-0.055) YE-Aqx-X-Type Natriuretic Peptide 49987 pg/mL (0-124) Total Protein 6.7 g/dL (6.4-8.2) Albumin 3.1 g/dL (3.4-5.0) Albumin/Globulin Ratio 0.9 (1.0-1.7) O2 Saturation 85 % (92-99) Arterial Blood pH 7.27 (7.35-7.45) Arterial Blood pH (Temp corrected) 7.25 Arterial Blood pCO2 at Patient Temp 59 mmHg (35-46) Arterial Blood pCO2 (Temp correct) 64 mmHg Arterial Blood pO2 at Patient Temp 62 mmHg (65-108) Arterial Blood pO2 (Temp corrected) 72 mmHg Arterial Blood HCO3 27 mmol/L (21-28) Arterial Blood Base Excess -1 mmol/L (-3-3) FiO2 100 Objective Assessment Fever Panycytopenia PCN allergy Acute hypoxic resp failure - on Bipap CKD onHD CHF Plan Plan of Care Steroids per Pulm Vanc/Cefepime/Azithromycin UA C And S F/u COVID/labs and cults 35 mind CC time D/w nursing # [id number] RAMÍREZ RUIZ MD Feb 21, 2020 06:15
[2020-02-21] MEDS ORDERED: AZITHRMYCN 500MG IVPB FOR OMNI 250 ML IV ONE (06:30)
[2020-02-21] MEDS ORDERED: VANCOMYCIN 1.5 GM in IV NORMAL SALINE 500ML BAG 500 ML IV ONE (06:30)
[2020-02-21] MEDS: CEFEPIME HCL IV Push 1 GM VIAL. IVP SCH (06:42)
--- NOTE | 2020-02-21 06:45 | NUR ---
Nursing Note: Pt admitted to room 110 via ED at around 0215. Transfered to bed with 100% NRB. No respiratory distress noted, sats in mid 90s once hooked up to monitor. Patient alert and oriented. Denies pain, afebrile for me despit being febrile in ED, now post tylenol. Was able to titrate levophed off. BP good.
--- NOTE | 2020-02-21 08:11 | PDOC ---
PROGRESS NOTES Chief Complaint Chief Complaint A/P: Sepsis - concern for bilateral pneumonia vs COVID 19 Panycytopenia Acute hypoxic resp failure - on Bipap CKD onHD Acute CHF Elevated troponin HTN urgency History of Present Illness History of Present Illness Ms Murillo is a 69yo F ESRD on HD, anemia who presented to [facility] on 02/19 with complaints of shortness of air, feeling chills while at dialysis. Noted in ED with a temperature of 103.2. On arrival, she had a white count of 2.8. A chest x-ray was obtained. She had bilateral infiltrates, some rounded areas of density, possible metastatic or nodules in the lungs. Subsequently, underwent a CT angiography of her chest showed there were several bilateral infiltrates, greatest in the lower lobes, although variable involvement of the other lobes and she had pulmonary hypertension. ABG 7./59/64, and she had been placed on BiPAP and was given doses of azithromycin and Rocephin as well as steroids. Currently, she is lying in bed. She is feeling more comfortable. She is on BiPAP. She has had a dry cough and a little bit of diarrhea. Repeat ABG 02/12/51/ after hours on BIPAP 18/8 with FIO2 40%. Significant for albumin 3.1 BUN 10 CR 2.3 BNP 45050 WBC 2.8, Hb 9.8, platelets 61 lactate 1.3 troponin 0.113. Overall, speaking through BiPAP mask she states she feels better. Asking for food. Plan: Will increase to 20/8 for another hour, repeat ABG COVID 19 suspected, will f/u results, on full droplet precautions. Cont ICU CC time 38 minutes Vitals Vitals Vital Signs Date Time Temp Pulse Resp B/P (MAP) Pulse Ox O2 Delivery O2 Flow Rate FiO2 02/21/20 07:53 98 BiPAP/CPAP 02/21/20 06:00 58 24 97/57 (70) 02/21/20 05:00 97.4 97.4 02/20/20 21:13 15.0 Physical Exam General: Alert, Cooperative, moderate distress Heart: Regular rate, Normal S1, Normal S2 Lungs: Crackles, Other Abdomen: Normal bowel sounds, Soft Extremities: No clubbing, No cyanosis Skin: No rashes, No breakdown Labs LABS Laboratory Tests Test 02/20/20 19:15 02/20/20 21:06 White Blood Count 2.8 x10^3/uL (4.0-11.0) Red Blood Count 3.09 x10^6/uL (3.50-5.40) Hemoglobin 9.8 g/dL (12.0-15.5) Hematocrit 30.0 % (36.0-47.0) Mean Corpuscular Volume 97 fL (79-100) Mean Corpuscular Hemoglobin 32 pg (25-35) Mean Corpuscular Hemoglobin Concent 33 g/dL (31-37) Red Cell Distribution Width 15.5 % (11.5-14.5) Platelet Count 61 x10^3/uL (140-400) Neutrophils (%) (Auto) 68 % (31-73) Lymphocytes (%) (Auto) 23 % (24-48) Monocytes (%) (Auto) 9 % (0-9) Eosinophils (%) (Auto) 0 % (0-3) Basophils (%) (Auto) 0 % (0-3) Neutrophils # (Auto) 1.9 x10^3/uL (1.8-7.7) Lymphocytes # (Auto) 0.6 x10^3/uL (1.0-4.8) Monocytes # (Auto) 0.2 x10^3/uL (0.0-1.1) Eosinophils # (Auto) 0.0 x10^3/uL (0.0-0.7) Basophils # (Auto) 0.0 x10^3/uL (0.0-0.2) Prothrombin Time 12.3 SEC (11.7-14.0) Prothromb Time International Ratio 1.0 (0.8-1.1) Activated Partial Thromboplast Time 37 SEC (24-38) Sodium Level 138 mmol/L (136-145) Potassium Level 3.4 mmol/L (3.5-5.1) Chloride Level 100 mmol/L (98-107) Carbon Dioxide Level 31 mmol/L (21-32) Anion Gap 7 (6-14) Blood Urea Nitrogen 10 mg/dL (7-20) Creatinine 2.3 mg/dL (0.6-1.0) Estimated GFR (Cockcroft-Gault) 21.0 BUN/Creatinine Ratio 4 (6-20) Glucose Level 112 mg/dL (70-99) Lactic Acid Level 1.3 mmol/L (0.4-2.0) Calcium Level 7.9 mg/dL (8.5-10.1) Total Bilirubin 0.3 mg/dL (0.2-1.0) Aspartate Amino Transf (AST/SGOT) 32 U/L (15-37) Alanine Aminotransferase (ALT/SGPT) 16 U/L (14-59) Alkaline Phosphatase 44 U/L (46-116) Troponin I Quantitative 0.113 ng/mL (0.000-0.055) QH-Rzt-C-Type Natriuretic Peptide 79843 pg/mL (0-124) Total Protein 6.7 g/dL (6.4-8.2) Albumin 3.1 g/dL (3.4-5.0) Albumin/Globulin Ratio 0.9 (1.0-1.7) O2 Saturation 85 % (92-99) Arterial Blood pH 7.27 (7.35-7.45) Arterial Blood pH (Temp corrected) 7.25 Arterial Blood pCO2 at Patient Temp 59 mmHg (35-46) Arterial Blood pCO2 (Temp correct) 64 mmHg Arterial Blood pO2 at Patient Temp 62 mmHg (65-108) Arterial Blood pO2 (Temp corrected) 72 mmHg Arterial Blood HCO3 27 mmol/L (21-28) Arterial Blood Base Excess -1 mmol/L (-3-3) FiO2 100 Comment Review of Relevant I have reviewed the following items yoel (where applicable) has been applied. Labs Laboratory Tests Test 02/20/20 19:15 02/20/20 21:06 White Blood Count 2.8 x10^3/uL (4.0-11.0) Red Blood Count 3.09 x10^6/uL (3.50-5.40) Hemoglobin 9.8 g/dL (12.0-15.5) Hematocrit 30.0 % (36.0-47.0) Mean Corpuscular Volume 97 fL (79-100) Mean Corpuscular Hemoglobin 32 pg (25-35) Mean Corpuscular Hemoglobin Concent 33 g/dL (31-37) Red Cell Distribution Width 15.5 % (11.5-14.5) Platelet Count 61 x10^3/uL (140-400) Neutrophils (%) (Auto) 68 % (31-73) Lymphocytes (%) (Auto) 23 % (24-48) Monocytes (%) (Auto) 9 % (0-9) Eosinophils (%) (Auto) 0 % (0-3) Basophils (%) (Auto) 0 % (0-3) Neutrophils # (Auto) 1.9 x10^3/uL (1.8-7.7) Lymphocytes # (Auto) 0.6 x10^3/uL (1.0-4.8) Monocytes # (Auto) 0.2 x10^3/uL (0.0-1.1) Eosinophils # (Auto) 0.0 x10^3/uL (0.0-0.7) Basophils # (Auto) 0.0 x10^3/uL (0.0-0.2) Prothrombin Time 12.3 SEC (11.7-14.0) Prothromb Time International Ratio 1.0 (0.8-1.1) Activated Partial Thromboplast Time 37 SEC (24-38) Sodium Level 138 mmol/L (136-145) Potassium Level 3.4 mmol/L (3.5-5.1) Chloride Level 100 mmol/L (98-107) Carbon Dioxide Level 31 mmol/L (21-32) Anion Gap 7 (6-14) Blood Urea Nitrogen 10 mg/dL (7-20) Creatinine 2.3 mg/dL (0.6-1.0) Estimated GFR (Cockcroft-Gault) 21.0 BUN/Creatinine Ratio 4 (6-20) Glucose Level 112 mg/dL (70-99) Lactic Acid Level 1.3 mmol/L (0.4-2.0) Calcium Level 7.9 mg/dL (8.5-10.1) Total Bilirubin 0.3 mg/dL (0.2-1.0) Aspartate Amino Transf (AST/SGOT) 32 U/L (15-37) Alanine Aminotransferase (ALT/SGPT) 16 U/L (14-59) Alkaline Phosphatase 44 U/L (46-116) Troponin I Quantitative 0.113 ng/mL (0.000-0.055) NT-Tem-T-Type Natriuretic Peptide 45755 pg/mL (0-124) Total Protein 6.7 g/dL (6.4-8.2) Albumin 3.1 g/dL (3.4-5.0) Albumin/Globulin Ratio 0.9 (1.0-1.7) O2 Saturation 85 % (92-99) Arterial Blood pH 7.27 (7.35-7.45) Arterial Blood pH (Temp corrected) 7.25 Arterial Blood pCO2 at Patient Temp 59 mmHg (35-46) Arterial Blood pCO2 (Temp correct) 64 mmHg Arterial Blood pO2 at Patient Temp 62 mmHg (65-108) Arterial Blood pO2 (Temp corrected) 72 mmHg Arterial Blood HCO3 27 mmol/L (21-28) Arterial Blood Base Excess -1 mmol/L (-3-3) FiO2 100 Laboratory Tests Test 02/20/20 19:15 02/20/20 21:06 White Blood Count 2.8 x10^3/uL (4.0-11.0) Red Blood Count 3.09 x10^6/uL (3.50-5.40) Hemoglobin 9.8 g/dL (12.0-15.5) Hematocrit 30.0 % (36.0-47.0) Mean Corpuscular Volume 97 fL (79-100) Mean Corpuscular Hemoglobin 32 pg (25-35) Mean Corpuscular Hemoglobin Concent 33 g/dL (31-37) Red Cell Distribution Width 15.5 % (11.5-14.5) Platelet Count 61 x10^3/uL (140-400) Neutrophils (%) (Auto) 68 % (31-73) Lymphocytes (%) (Auto) 23 % (24-48) Monocytes (%) (Auto) 9 % (0-9) Eosinophils (%) (Auto) 0 % (0-3) Basophils (%) (Auto) 0 % (0-3) Neutrophils # (Auto) 1.9 x10^3/uL (1.8-7.7) Lymphocytes # (Auto) 0.6 x10^3/uL (1.0-4.8) Monocytes # (Auto) 0.2 x10^3/uL (0.0-1.1) Eosinophils # (Auto) 0.0 x10^3/uL (0.0-0.7) Basophils # (Auto) 0.0 x10^3/uL (0.0-0.2) Prothrombin Time 12.3 SEC (11.7-14.0) Prothromb Time International Ratio 1.0 (0.8-1.1) Activated Partial Thromboplast Time 37 SEC (24-38) Sodium Level 138 mmol/L (136-145) Potassium Level 3.4 mmol/L (3.5-5.1) Chloride Level 100 mmol/L (98-107) Carbon Dioxide Level 31 mmol/L (21-32) Anion Gap 7 (6-14) Blood Urea Nitrogen 10 mg/dL (7-20) Creatinine 2.3 mg/dL (0.6-1.0) Estimated GFR (Cockcroft-Gault) 21.0 BUN/Creatinine Ratio 4 (6-20) Glucose Level 112 mg/dL (70-99) Lactic Acid Level 1.3 mmol/L (0.4-2.0) Calcium Level 7.9 mg/dL (8.5-10.1) Total Bilirubin 0.3 mg/dL (0.2-1.0) Aspartate Amino Transf (AST/SGOT) 32 U/L (15-37) Alanine Aminotransferase (ALT/SGPT) 16 U/L (14-59) Alkaline Phosphatase 44 U/L (46-116) Troponin I Quantitative 0.113 ng/mL (0.000-0.055) XU-Vdh-H-Type Natriuretic Peptide 31736 pg/mL (0-124) Total Protein 6.7 g/dL (6.4-8.2) Albumin 3.1 g/dL (3.4-5.0) Albumin/Globulin Ratio 0.9 (1.0-1.7) O2 Saturation 85 % (92-99) Arterial Blood pH 7.27 (7.35-7.45) Arterial Blood pH (Temp corrected) 7.25 Arterial Blood pCO2 at Patient Temp 59 mmHg (35-46) Arterial Blood pCO2 (Temp correct) 64 mmHg Arterial Blood pO2 at Patient Temp 62 mmHg (65-108) Arterial Blood pO2 (Temp corrected) 72 mmHg Arterial Blood HCO3 27 mmol/L (21-28) Arterial Blood Base Excess -1 mmol/L (-3-3) FiO2 100 Medications Current Medications Ceftriaxone Sodium (Rocephin) 1 gm 1X ONCE IVP Last administered on 02/20/20at 19:37; Start 02/20/20 at 19:30; Stop 02/20/20 at 19:31; Status DC Azithromycin 500 mg/Sodium Chloride 250 ml @ 250 mls/hr 1X ONCE IV ; Start 02/20/20 at 19:30; Stop 02/20/20 at 20:29; Status Cancel Acetaminophen (Tylenol) 1,000 mg 1X ONCE PO Last administered on 02/20/20at 19:37; Start 02/20/20 at 19:30; Stop 02/20/20 at 19:31; Status DC Azithromycin 250 ml @ 250 mls/hr 1X ONCE IV Last administered on 02/20/20at 19:37; Start 02/20/20 at 19:30; Stop 02/20/20 at 20:29; Status DC Ondansetron HCl (Zofran) 4 mg PRN Q8HRS PRN IV NAUSEA/VOMITING; Start 02/20/20 at 19:30; Stop 02/21/20 at 19:29 Iohexol (Omnipaque 350 Mg/ml) 70 ml 1X ONCE IV Last administered on 02/20/20at 22:19; Start 02/20/20 at 20:00; Stop 02/20/20 at 20:01; Status DC Info (CONTRAST GIVEN -- Rx MONITORING) 1 each PRN DAILY PRN MC SEE COMMENTS; Start 02/20/20 at 20:00; Stop 02/22/20 at 19:59 Hydralazine HCl (Apresoline Inj) 10 mg 1X ONCE IVP Last administered on 02/20/20at 20:39; Start 02/20/20 at 20:00; Stop 02/20/20 at 20:02; Status DC Multivitamins (Thera M Plus) 1 tab DAILY PO ; Start 02/21/20 at 09:00 Furosemide (Lasix) 40 mg 1X ONCE IVP Last administered on 02/20/20at 20:53; Start 02/20/20 at 21:00; Stop 02/20/20 at 21:01; Status DC Methylprednisolone Sodium Succinate (SOLU-Medrol 40MG VIAL) 40 mg STK-MED ONCE .ROUTE ; Start 02/20/20 at 20:56; Stop 02/20/20 at 20:56; Status DC Methylprednisolone Sodium Succinate (SOLU-Medrol 40MG VIAL) 40 mg Q12HR IV ; Start 02/21/20 at 09:00 Methylprednisolone Sodium Succinate (SOLU-Medrol 40MG VIAL) 80 mg 1X ONCE IV Last administered on 02/20/20at 21:07; Start 02/20/20 at 21:15; Stop 02/20/20 at 21:16; Status DC Lorazepam (Ativan Inj) 2 mg STK-MED ONCE .ROUTE ; Start 02/20/20 at 22:32; Stop 02/20/20 at 22:32; Status DC Norepinephrine Bitartrate 8 mg/ Dextrose 258 ml @ 13.719 mls/ hr 1X ONCE IV Last administered on 02/20/20at 23:45; Start 02/20/20 at 23:45; Stop 02/21/20 at 18:33 Lorazepam (Ativan Inj) 1 mg 1X ONCE IVP Last administered on 02/20/20at 23:45; Start 02/20/20 at 23:45; Stop 02/20/20 at 23:48; Status DC Vancomycin HCl (Vanco Per Pharmacy) 1 each PRN DAILY PRN MC SEE COMMENTS; St art 02/21/20 at 06:15 Cefepime HCl (Maxipime) 1 gm Q24H IVP Last administered on 02/21/20at 06:42; Start 02/21/20 at 06:15 Azithromycin 250 ml @ 250 mls/hr 1X ONCE IV Last administered on 02/21/20at 06:42; Start 02/21/20 at 06:30; Stop 02/21/20 at 07:29; Status DC Vancomycin HCl 1.5 gm/Sodium Chloride 500 ml @ 250 mls/hr 1X ONCE IV ; Start 02/21/20 at 06:30; Stop 02/21/20 at 08:29 Active Scripts Active Oxycodone Hcl Immed.release (Oxycodone Hcl) 5 Mg Tablet 1 Tab PO QID Vitamin D2 (Ergocalciferol (Vitamin D2)) 50,000 Unit Capsule 50,000 Unit PO WEEKLY Folbic Tablet (Cyanocobalamin/Fa/Pyridoxine) 1 Each Tablet 1 Tab PO DAILY Calcitriol 0.25 Mcg Capsule 0.25 Mcg PO DAILY Reported Sodium Bicarbonate 650 Mg Tablet 1,300 Mg PO BID Ferrous Sulfate 325 Mg Tablet 325 Mg PO TIDWMEALS Norvasc (Amlodipine Besylate) 10 Mg Tablet 10 Mg PO DAILY08 Vitals/I & O Vital Sign - Last 24 Hours 7/06/0102/20/20 02/20/20 02/20/20 17:58 18:43 19:13 19:30 Temp 103.2 101.4 103.2 101.4 Pulse 105 100 102 Resp 24 B/P (MAP) 204/85 (124) 194/100 (131) 211/92 (131) Pulse Ox 50 97 91 O2 Delivery Room Air Nasal Cannula Nasal Cannula O2 Flow Rate 3.0 3.0 02/20/20 02/20/20 02/20/20 02/20/20 19:43 19:58 20:02 20:07 Temp 102.4 102.4 Pulse 122 120 116 Resp 32 B/P (MAP) 232/106 (148) 186/82 (116) 204/97 (132) O2 Delivery Nasal Cannula Nasal Cannula Nasal Cannula O2 Flow Rate 3.0 3.0 3.0 02/20/20 02/20/20 02/20/20 02/20/20 20:13 20:35 20:39 20:40 Pulse 114 118 119 118 B/P (MAP) 199/87 (124) 203/104 (137) 203/104 212/94 (133) Pulse Ox 51 74 69 O2 Delivery Nasal Cannula NonRebreather Mask NonRebreather Mask O2 Flow Rate 3.0 15.0 15.0 02/20/20 02/20/20 02/20/20 02/20/20 20:43 20:52 21:13 22:48 Pulse 118 112 112 B/P (MAP) 216/100 (138) 151/78 (102) 147/79 (101) Pulse Ox 86 86 92 O2 Delivery NonRebreather Mask NonRebreather Mask NonRebreather Mask BiPAP/CPAP O2 Flow Rate 15.0 15.0 15.0 02/20/20 02/20/20 02/20/20 02/20/20 23:05 23:23 23:35 23:45 Pulse 85 86 85 80 B/P (MAP) 75/49 (58) 70/46 (54) 67/48 (54) 73/47 (56) Pulse Ox 93 94 94 94 O2 Delivery BiPAP/CPAP BiPAP/CPAP BiPAP/CPAP BiPAP/CPAP 02/20/20 02/20/20 02/21/20 02/21/20 23:50 23:55 00:05 00:10 Pulse 77 74 74 78 B/P (MAP) 87/58 (68) 96/60 (72) 105/63 (77) 126/66 (86) Pulse Ox 94 96 96 98 O2 Delivery BiPAP/CPAP BiPAP/CPAP BiPAP/CPAP BiPAP/CPAP 02/21/20 02/21/20 02/21/20 02/21/20 00:15 00:20 00:25 00:30 Pulse 70 68 68 68 B/P (MAP) 103/64 (77) 107/63 (78) 106/67 (80) 110/67 (81) Pulse Ox 97 96 97 97 O2 Delivery BiPAP/CPAP BiPAP/CPAP BiPAP/CPAP BiPAP/CPAP 02/21/20 02/21/20 02/21/20 02/21/20 00:35 00:40 00:45 00:50 Pulse 68 68 68 68 B/P (MAP) 112/67 (82) 108/66 (80) 112/69 (83) 113/68 (83) Pulse Ox 98 97 97 98 O2 Delivery BiPAP/CPAP BiPAP/CPAP BiPAP/CPAP BiPAP/CPAP 02/21/20 02/21/20 02/21/20 02/21/20 00:55 01:00 01:05 01:10 Pulse 66 66 66 68 Resp 25 25 36 27 B/P (MAP) 114/71 (85) 114/66 (82) 114/67 (83) 113/68 (83) Pulse Ox 98 98 98 98 O2 Delivery BiPAP/CPAP BiPAP/CPAP BiPAP/CPAP BiPAP/CPAP 02/21/20 02/21/20 02/21/20 02/21/20 01:15 01:20 01:25 01:30 Pulse 64 66 66 66 Resp 28 25 33 24 B/P (MAP) 112/69 (83) 118/70 (86) 119/67 (84) 115/64 (81) Pulse Ox 99 99 99 99 O2 Delivery BiPAP/CPAP BiPAP/CPAP BiPAP/CPAP BiPAP/CPAP 02/21/20 02/21/20 02/21/20 02/21/20 01:35 01:40 01:45 01:50 Pulse 66 64 66 80 Resp 23 24 32 24 B/P (MAP) 114/69 (84) 115/68 (84) 135/72 (93) 150/82 (104) Pulse Ox 99 99 99 100 O2 Delivery BiPAP/CPAP BiPAP/CPAP BiPAP/CPAP BiPAP/CPAP 02/21/20 02/21/20 02/21/20 02/21/20 02:15 02:30 02:40 03:00 Temp 97.7 97.7 Pulse 84 84 68 Resp 22 22 22 B/P (MAP) 168/85 (112) 141/74 (96) 97/57 (70) Pulse Ox 95 98 98 O2 Delivery BiPAP/CPAP BiPAP/CPAP Bi-pap BiPAP/CPAP 02/21/20 02/21/20 02/21/20 02/21/20 03:01 04:00 04:00 05:00 Temp 97.4 97.4 Pulse 64 62 Resp 24 24 B/P (MAP) 92/54 (67) 147/80 (102) Pulse Ox 93 100 98 O2 Delivery BiPAP/CPAP Bi-pap BiPAP/CPAP BiPAP/CPAP 02/21/20 02/21/20 06:00 07:53 Pulse 58 Resp 24 B/P (MAP) 97/57 (70) Pulse Ox 99 98 O2 Delivery BiPAP/CPAP BiPAP/CPAP Intake and Output 02/20/20 02/20/20 02/21/20 15:00 23:00 07:00 Intake Total 250 ml 28.4 ml Balance 250 ml 28.4 ml Justicifation of Admission Dx: Justifications for Admission: Justification of Admission Dx: Yes Respiratory Failure: Severe Resp Distress LICO NOBLE MD Feb 21, 2020 08:11
[2020-02-21 08:32] LABS: BASE EXCESS ABG -2 mmol/L (-3-3); HCO3 ABG 25 mmol/L (21-28); PCO2 ABG 51 mmHg (35-46); PO2 ABG 64 mmHg (65-108); SAT O2 ABG 86 % (92-99)
[2020-02-21 08:36] LABS: FIO2 ABG 40% BIPAP
--- NOTE | 2020-02-21 09:11 | CONS ---
DATE OF CONSULTATION: 02/21/2020 PATIENT'S ROOM: ICU 10. REQUESTING PHYSICIAN: Dr. Fernandez. REASON FOR CONSULTATION: Possible COVID. HISTORY OF PRESENT ILLNESS: The patient is a 69-year-old -[place] female who is on dialysis, who presented to [facility] on 02/19 with complaints of shortness of air, feeling chills while at dialysis, she developed a temperature of 103.2. On arrival, she had a white count of 2.8. A chest x-ray was obtained. She had bilateral infiltrates, some rounded areas of density, possible metastatic or nodules in the lungs. Subsequently, underwent a CT angiography of her chest showed there were several bilateral infiltrates, greatest in the lower lobes, although variable involvement of the other lobes and she had pulmonary hypertension. Initially on arrival, her blood pressure was 204/85 and did drop down into the 70s/40s. She has been placed on BiPAP and was given doses of azithromycin and Rocephin. Additionally, she has been started on steroids. Currently, she is lying in bed. She is feeling more comfortable. She is on BiPAP. She has had a dry cough and a little bit of diarrhea. It is hard to completely ascertain all review of systems. PAST MEDICAL HISTORY: Positive for chronic anemia, chronic kidney disease, B12 deficiency, hypertension, small bowel obstructions, uterine cancer, nephrolithiasis, and hematochezia. She does have a history of Klebsiella and E. coli UTIs. PAST SURGICAL HISTORY: Positive for cholecystectomy, hysterectomy, SBR, appendectomy, bone marrow biopsy and also has had a right upper extremity fistula placed. She also has an umbilical hernia, and questionable history of dementia. REVIEW OF SYSTEMS: Otherwise was mentioned above. ALLERGIES: LISTED PENICILLIN. Currently, she is tolerating Rocephin. SOCIAL HISTORY: No tobacco or alcohol. FAMILY HISTORY: Noncontributory. CURRENT MEDICATIONS: Include azithromycin x 1, Rocephin x 1, Lasix, hydralazine, she is on Solu-Medrol 40 q. 12 hours. PHYSICAL EXAMINATION: VITAL SIGNS: Current temperature is 97.4, pulse 58, respirations 24, blood pressure 97/57, satting 99% on BiPAP. CONSTITUTIONAL: She is alert. She is cooperative. She appears comfortable on BiPAP. She has questionable cataracts. HEENT: She has normal conjunctivae. NECK: Supple, no JVD. LUNGS: Without wheeze and decreased in the bases. HEART: S1, S2. ABDOMEN: Obese, soft, nontender, no guarding. She has an umbilical hernia. EXTREMITIES: No clubbing, cyanosis or gross edema. SKIN: Warm to touch without signs of rash. NEUROLOGIC: She is alert and answering questions. Moves all extremities. LABORATORY DATA: White count on arrival was 2.8, hemoglobin 9.8, platelets of 61. Creatinine was 2.3, glucose of 112. Alkaline phosphatase of 44, but AST 32, ALT 16. BNP of 24,824. IMPRESSION: 1. Fever. 2. Pancytopenia. 3. PENICILLIN ALLERGY. 4. Acute hypoxic respiratory failure, on BiPAP. 5. Congestive heart failure. RECOMMENDATIONS: Evaluated by Pulmonary, begin vancomycin and cefepime. Continue azithromycin. Obtain UA, C and S. Follow up COVID labs and cultures. I spent 35 minutes of total critical care time and discussed with nursing. Thank you for allowing me to see and participate in the patient's care. Should you have further concerns or questions, please do not hesitate to contact me. RAMÍREZ RUIZ MD DR: EVELINE/lacey JOB#: [id number] / [id number]
[2020-02-21] MEDS: VANCOMYCIN PER PHARMACY MC PRN (09:57)
--- NOTE | 2020-02-21 09:58 | NUR ---
Pharmacy Vancomycin Dosing Note S:Consulted to monitor and dose vancomycin started 02/21/20. O:WILLOW HERR is a 69 year old F with Pneumonia . Height: 5 feet, 5 inches Weight: 58.0 kg [place] Body Weight: 57.00 Adjusted Body Weight: 57.40 Dosing Weight: Actual Other Antibiotics: CEFEPIME LABS: Last BUN: Last Creatinine: 2.3 Creatinine Clearance: 20 mL/min Last WBC: 2.8 Last Procalcitonin: Tmax (past 24 hours): 102.4 Microbiology: I/O: Drug Levels: Last level: on at Last dose given 02/21/20 at 1000 Vancomycin Dosing: Loading Dose: 1500 mg x1 Dosing Weight: Actual Target Trough: 15-20 A: Based on: WEIGHT AND RENAL FUNCTION/DIALYSIS P: 1. Begin Vancomycin IV 1.5GM X1 2. Follow up Random level on 02/23/20 at 0500 3. Pharmacy will continue to monitor, follow and adjust therapy as needed. ELINA YOUNG [facility], 02/21/20 [id number]
[2020-02-21] MEDS ORDERED: DEXTROSE 50% 25 GM / 50ML DISP.SYRIN. IV ONE (10:45)
[2020-02-21] MEDS ORDERED: INSULIN REGULAR 100 UNIT/ML 3ML VIAL. IV ONE (10:45)
--- NOTE | 2020-02-21 13:12 | CONS ---
DATE OF CONSULTATION: 02/21/2020 REASON FOR CONSULTATION: I was asked to see this 69-year-old lady for acute respiratory failure. HISTORY OF PRESENT ILLNESS: The patient is currently on BiPAP and it is difficult to obtain information. Most of the information was obtained from chart, Dr. Fernandez, RN and RT. She has end-stage renal disease, is on hemodialysis Sunday, Sunday and Sunday. She also has history of asthma. She has had shortness of breath and fever and chills and cough for the past few days. On arrival to the Emergency Room, the patient had temperature of 103.2. At the beginning, she was on nasal cannula, but she required high flow oxygen and now she is on BiPAP. COVID-19 test is pending. She is alert. She has shortness of breath. She is on BiPAP. PAST MEDICAL HISTORY: End-stage renal disease, on hemodialysis; asthma, anemia, hypertension, uterine cancer, nephrolithiasis, and history of UTI. PAST SURGICAL HISTORY: Cholecystectomy, hysterectomy, small bowel resection, appendectomy, bone marrow biopsy. ALLERGIES: PENICILLIN. MEDICATIONS: Currently, she is on vancomycin, cefepime, azithromycin. SOCIAL HISTORY: No tobacco. FAMILY HISTORY: Hypertension. REVIEW OF SYSTEMS: As mentioned as above, other systems otherwise negative. PHYSICAL EXAMINATION: GENERAL: She is on BiPAP. She is mildly tachypneic. VITAL SIGNS: Her O2 saturation on 40% FiO2 is 98%, respiratory rate 24, heart rate 58, blood pressure 97/57, temperature 97.4, yesterday, had maximum temperature was 103.2. HEENT: Normocephalic, atraumatic. Pupils are equal, round, reactive to light. She has BiPAP mask on. NECK: Short. No lymphadenopathy. CARDIOVASCULAR: Distant heart sounds. CHEST: Inspection mildly tachypneic. LUNGS: Bibasilar crackles. ABDOMEN: Soft. There is no paradoxical abdominal motion. EXTREMITIES: There is no cyanosis. NEUROLOGIC: Alert. LABORATORY DATA: I reviewed the following lab data: WBC 2.8, hemoglobin 9.8, platelets 61. Sodium 138, potassium 3.4, chloride 100, CO2 of 31, BUN 10, creatinine 2.3, glucose 112. Troponin 0.113. BNP 24,824. Lactic acid 1.3. ABGs, this morning, pH 7.3, pCO2 of 51, pO2 of 64 on BiPAP 40%, 18/6. COVID-[address] of the chest showed bilateral infiltrates, greatest in lower lobe area. IMPRESSION: 1. Acute hypoxemic respiratory failure secondary to pneumonia, rule out COVID-19, acute diastolic congestive heart failure versus others. 2. Abnormal chest x-ray. 3. Febrile illness. 4. Pancytopenia. 5. Acute diastolic congestive heart failure. 6. End-stage renal disease, on hemodialysis. PLAN AND RECOMMENDATIONS: 1. Titrate FiO2 to keep O2 saturation 92%. 2. Continue BiPAP support. Monitor very closely in ICU. She may require intubation. I changed BiPAP setting to 24/6, rate of 24. Repeat ABG. 3. Nephrology consultation for hemodialysis. 4. ID is consulted. Continue cefepime, azithromycin and vancomycin. 5. Follow up COVID-19 and cultures. 6. Continue steroids 40 mg IV every 12. 7. If she is COVID-19 positive, she would benefit from remdesivir or plasma. We will discuss with ID. 8. The findings and recommendations were discussed with RN and RT. Thank you very much for allowing me to participate in care of this very nice lady. The patient is critically ill. This is critical care time 30 minutes without overlap. NATTY ALVARADO M.D. ANDRAE HURD/lacey JOB#: [id number] / [id number]
[2020-02-21] MEDS: methylPREDNISolone SOD SUCC PF 40 MG/ML VIAL. IV SCH ×2 (13:22→21:32)
[2020-02-21] MEDS: MULTIVITAMIN with MINERAL TABLET. PO SCH (13:22)
[2020-02-21] MEDS: LOPERAMIDE 2 MG CAPSULE PO PRN ×2 (19:46→21:50)
[2020-02-21 22:12] LABS: BILIRUBIN,URINE NEGATIVE (NEG); CLARITY,URINE CLEAR; COLOR,URINE YELLOW; NITRITE,URINE NEGATIVE (NEG); PROTEIN,URINE 100 mg/dL (NEG-TRACE); UROBILINOGEN,URINE 0.2 mg/dL (0.2 mg/dL)
[2020-02-21 22:17] LABS: SQUAMOUS EPITHELIAL CELL,UR FEW /LPF
[2020-02-21 22:25] LABS: BACTERIA,URINE FEW /HPF (0-FEW); RBC,URINE RARE /HPF (0-2)
[2020-02-22] VITALS (14 sets, daily range): BP systolic 119–177; BP diastolic 63–92
[2020-02-22] MEDS: CEFEPIME HCL IV Push 1 GM VIAL. IVP SCH (05:31)
--- NOTE | 2020-02-22 08:39 | PDOC ---
Infectious Disease Note Subjective Subjective Feeling better Less work of breathing O2 at 4.5L No fevers/chills last 24 hrs Denies aches/N/V ROS ROS as mentioned above Vital Sign Vital Signs Vital Signs Date Time Temp Pulse Resp B/P (MAP) Pulse Ox O2 Delivery O2 Flow Rate FiO2 02/22/20 04:00 Bi-pap 02/22/20 04:00 98.6 84 27 119/63 (81) 95 4.0 98.6 Physical Exam PHYSICAL EXAM GENERAL: Propped up in bed, alert and eating HEENT: normal conjunctivae, oral cavity pink, moist. No thrush. . NECK: Supple, no JVD. LUNGS: + crackles bases, no accessory muscle use. HEART: S1, S2. regular ABDOMEN: Obese, soft, nontender, no guarding. She has an umbilical hernia. EXTREMITIES: No clubbing, cyanosis or gross edema. SKIN: Warm to touch without signs of rash. NEUROLOGIC: Alert and answering questions. Moves all extremities. PIV ok Labs Lab Laboratory Tests Test 02/21/20 22:00 Urine Collection Type Void Urine Color Yellow Urine Clarity Clear Urine pH 6.0 (<5.0-8.0) Urine Specific [place] 1.025 (1.000-1.030) Urine Protein 100 mg/dL (NEG-TRACE) Urine Glucose (UA) Negative mg/dL (NEG) Urine Ketones (Stick) Negative mg/dL (NEG) Urine Blood Trace (NEG) Urine Nitrite Negative (NEG) Urine Bilirubin Negative (NEG) Urine Urobilinogen Dipstick 0.2 mg/dL (0.2 mg/dL) Urine Leukocyte Esterase Small (NEG) Urine RBC Rare /HPF (0-2) Urine WBC 5-10 /HPF (0-4) Urine Squamous Epithelial Cells Few /LPF Urine Bacteria Few /HPF (0-FEW) Objective Assessment Fever - better Pancytopenia. PENICILLIN ALLERGY. Acute hypoxic respiratory failure, off BiPAP; now on 4.5L Congestive heart failure. Plan Plan of Care Steroids per Pulm Vanc/Cefepime/Azithromycin Today's labs still pending f/u UC Airborne isolation till COVID resulted D/w nursing May need Remdesivir but defer to Pulm if COVID + Attending Co-Sign Attending Co-Sign The patient was seen and interviewed as well as examined at the bedside. The chart was reviewed. The case was discussed. Agree with the plan of care. LUCY ROBIN APRN Feb 22, 2020 08:39 RAMÍREZ RUIZ MD Feb 22, 2020 15:25
--- NOTE | 2020-02-22 09:00 | NUR ---
Patient's oxygen down to 84% on 4LPM O2 NC. Patient just laying in bed. RT put patient back on bipap at this time setting 24/6, 24 and 40%. Oxygen quickly returned to 94 - 95 %.
[2020-02-22] MEDS: methylPREDNISolone SOD SUCC PF 40 MG/ML VIAL. IV SCH ×2 (09:01→21:14)
[2020-02-22] MEDS: MULTIVITAMIN with MINERAL TABLET. PO SCH (09:01)
[2020-02-22 09:27] LABS: BASE EXCESS ABG -2 mmol/L (-3-3); HCO3 ABG 24 mmol/L (21-28); PCO2 ABG 47 mmHg (35-46); PO2 ABG 71 mmHg (65-108); SAT O2 ABG 89 % (92-99)
[2020-02-22 09:31] LABS: FIO2 ABG 40
--- NOTE | 2020-02-22 11:00 | NUR ---
Patient c/o bipap making it difficult to breath and patient's respirations up to 30. Explained that she needed to let the bipap do the breathing and for her not to overbreath it. Patient requests to be put back on NC. 4lpm NC applied and oxygen remains 94%.
--- NOTE | 2020-02-22 11:51 | PDOC ---
PULMONARY PROGRESS NOTES Subjective used bipap last night, on 4 lpm, has episodes of desat . has sob, cough Vitals Vital Signs Date Time Temp Pulse Resp B/P (MAP) Pulse Ox O2 Delivery O2 Flow Rate FiO2 02/22/20 09:00 80 26 148/83 (104) 96 BiPAP/CPAP 02/22/20 08:00 4.0 02/22/20 07:00 98.6 98.6 Comments alert on no paradoxical abd motion no audible wheezing ekg nsr no edema no rash General: Alert HEENT: Other (nc at ) Cardiovascular: S1, S2 Neuro Exam: Alert Skin: No Rashes Labs Laboratory Tests Test 02/20/20 19:15 02/20/20 21:06 02/21/20 08:25 02/21/20 22:00 White Blood Count 2.8 x10^3/uL (4.0-11.0) Red Blood Count 3.09 x10^6/uL (3.50-5.40) Hemoglobin 9.8 g/dL (12.0-15.5) Hematocrit 30.0 % (36.0-47.0) Mean Corpuscular Volume 97 fL (79-100) Mean Corpuscular Hemoglobin 32 pg (25-35) Mean Corpuscular Hemoglobin Concent 33 g/dL (31-37) Red Cell Distribution Width 15.5 % (11.5-14.5) Platelet Count 61 x10^3/uL (140-400) Neutrophils (%) (Auto) 68 % (31-73) Lymphocytes (%) (Auto) 23 % (24-48) Monocytes (%) (Auto) 9 % (0-9) Eosinophils (%) (Auto) 0 % (0-3) Basophils (%) (Auto) 0 % (0-3) Neutrophils # (Auto) 1.9 x10^3/uL (1.8-7.7) Lymphocytes # (Auto) 0.6 x10^3/uL (1.0-4.8) Monocytes # (Auto) 0.2 x10^3/uL (0.0-1.1) Eosinophils # (Auto) 0.0 x10^3/uL (0.0-0.7) Basophils # (Auto) 0.0 x10^3/uL (0.0-0.2) Prothrombin Time 12.3 SEC (11.7-14.0) Prothromb Time International Ratio 1.0 (0.8-1.1) Activated Partial Thromboplast Time 37 SEC (24-38) Sodium Level 138 mmol/L (136-145) Potassium Level 3.4 mmol/L (3.5-5.1) Chloride Level 100 mmol/L (98-107) Carbon Dioxide Level 31 mmol/L (21-32) Anion Gap 7 (6-14) Blood Urea Nitrogen 10 mg/dL (7-20) Creatinine 2.3 mg/dL (0.6-1.0) Estimated GFR (Cockcroft-Gault) 21.0 BUN/Creatinine Ratio 4 (6-20) Glucose Level 112 mg/dL (70-99) Lactic Acid Level 1.3 mmol/L (0.4-2.0) Calcium Level 7.9 mg/dL (8.5-10.1) Total Bilirubin 0.3 mg/dL (0.2-1.0) Aspartate Amino Transf (AST/SGOT) 32 U/L (15-37) Alanine Aminotransferase (ALT/SGPT) 16 U/L (14-59) Alkaline Phosphatase 44 U/L (46-116) Troponin I Quantitative 0.113 ng/mL (0.000-0.055) EM-Uqj-[id number]-Type Natriuretic Peptide 81309 pg/mL (0-124) Total Protein 6.7 g/dL (6.4-8.2) Albumin 3.1 g/dL (3.4-5.0) Albumin/Globulin Ratio 0.9 (1.0-1.7) O2 Saturation 85 % (92-99) 86 % (92-99) Arterial Blood pH 7.27 (7.35-7.45) 7.30 (7.35-7.45) Arterial Blood pH (Temp corrected) 7.25 Arterial Blood pCO2 at Patient Temp 59 mmHg (35-46) 51 mmHg (35-46) Arterial Blood pCO2 (Temp correct) 64 mmHg Arterial Blood pO2 at Patient Temp 62 mmHg (65-108) 64 mmHg (65-108) Arterial Blood pO2 (Temp corrected) 72 mmHg Arterial Blood HCO3 27 mmol/L (21-28) 25 mmol/L (21-28) Arterial Blood Base Excess -1 mmol/L (-3-3) -2 mmol/L (-3-3) FiO2 100 40% bipap Urine Collection Type Void Urine Color Yellow Urine Clarity Clear Urine pH 6.0 (<5.0-8.0) Urine Specific [place] 1.025 (1.000-1.030) Urine Protein 100 mg/dL (NEG-TRACE) Urine Glucose (UA) Negative mg/dL (NEG) Urine Ketones (Stick) Negative mg/dL (NEG) Urine Blood Trace (NEG) Urine Nitrite Negative (NEG) Urine Bilirubin Negative (NEG) Urine Urobilinogen Dipstick 0.2 mg/dL (0.2 mg/dL) Urine Leukocyte Esterase Small (NEG) Urine RBC Rare /HPF (0-2) Urine WBC 5-10 /HPF (0-4) Urine Squamous Epithelial Cells Few /LPF Urine Bacteria Few /HPF (0-FEW) Test 02/22/20 09:20 O2 Saturation 89 % (92-99) Arterial Blood pH 7.33 (7.35-7.45) Arterial Blood pCO2 at Patient Temp 47 mmHg (35-46) Arterial Blood pO2 at Patient Temp 71 mmHg (65-108) Arterial Blood HCO3 24 mmol/L (21-28) Arterial Blood Base Excess -2 mmol/L (-3-3) FiO2 40 Laboratory Tests Test 02/21/20 22:00 02/22/20 09:20 Urine Collection Type Void Urine Color Yellow Urine Clarity Clear Urine pH 6.0 (<5.0-8.0) Urine Specific [place] 1.025 (1.000-1.030) Urine Protein 100 mg/dL (NEG-TRACE) Urine Glucose (UA) Negative mg/dL (NEG) Urine Ketones (Stick) Negative mg/dL (NEG) Urine Blood Trace (NEG) Urine Nitrite Negative (NEG) Urine Bilirubin Negative (NEG) Urine Urobilinogen Dipstick 0.2 mg/dL (0.2 mg/dL) Urine Leukocyte Esterase Small (NEG) Urine RBC Rare /HPF (0-2) Urine WBC 5-10 /HPF (0-4) Urine Squamous Epithelial Cells Few /LPF Urine Bacteria Few /HPF (0-FEW) O2 Saturation 89 % (92-99) Arterial Blood pH 7.33 (7.35-7.45) Arterial Blood pCO2 at Patient Temp 47 mmHg (35-46) Arterial Blood pO2 at Patient Temp 71 mmHg (65-108) Arterial Blood HCO3 24 mmol/L (21-28) Arterial Blood Base Excess -2 mmol/L (-3-3) FiO2 40 Medications Active Scripts Medications Dose Route/Sig Max Daily Dose Days Date Category Oxycodone Hcl Immed.release (Oxycodone Hcl) 5 Mg Tablet 1 Tab PO QID 04/15/18 Rx Sodium Bicarbonate 650 Mg Tablet 1,300 Mg PO BID 06/10/17 Reported Ferrous Sulfate 325 Mg Tablet 325 Mg PO TIDWMEALS 06/10/17 Reported Vitamin D2 (Ergocalciferol (Vitamin D2)) 50,000 Unit Capsule 50,000 Unit PO WEEKLY 12/07/16 Rx Folbic Tablet (Cyanocobalamin/Fa/Pyridoxine) 1 Each Tablet 1 Tab PO DAILY 12/07/16 Rx Calcitriol 0.25 Mcg Capsule 0.25 Mcg PO DAILY 12/07/16 Rx Norvasc (Amlodipine Besylate) 10 Mg Tablet 10 Mg PO DAILY08 09/04/13 Reported Comments cta reviewed 1. There are severe bilateral infiltrates greatest of the lower lobes although variable involvement of the other lobes. 2. There is coronary calcification. 3. Main pulmonary artery dilatation suggests pulmonary hypertension. no central pe Impression . IMPRESSION: 1. Acute hypoxemic respiratory failure secondary to pneumonia, rule out COVID-19, acute diastolic congestive heart failure versus others. 2. Abnormal chest x-ray. 3. Febrile illness. 4. Pancytopenia. 5. Acute diastolic congestive heart failure. 6. End-stage renal disease, on hemodialysis. 7. covid19 pui Plan . PLAN AND RECOMMENDATIONS: 1. Titrate FiO2 to keep O2 saturation 92%. 2. BiPAP prn, setting reviewed. Monitor very closely in ICU. 3. Nephrology consultation for hemodialysis. 4. Continue cefepime, azithromycin and vancomycin. per id 5. Follow up COVID-19 and cultures. 6. Continue steroids 40 mg IV every 12. 7. If she is COVID-19 positive, she would benefit from remdesivir or plasma. We will discuss with ID. 8. The findings and recommendations were discussed with RN and RT. The patient is critically ill. This is critical care time 30 minutes without overlap. NATTY ALVARADO MD Feb 22, 2020 11:51
[2020-02-22 13:47] LABS: ALBUMIN 2.6 g/dL (3.4-5.0); ALBUMIN/GLOBULIN RATIO 0.7 (1.0-1.7); CREATININE 4.6 mg/dL (0.6-1.0); GFR 9.4; POTASSIUM 4.7 mmol/L (3.5-5.1); TOTAL BILIRUBIN 0.2 mg/dL (0.2-1.0); TOTAL PROTEIN 6.4 g/dL (6.4-8.2)
[2020-02-22 15:38] LABS: BASO % 0 % (0-3); EOS % 0 % (0-3); HEMATOCRIT 28.4 % (36.0-47.0); HEMOGLOBIN 9.2 g/dL (12.0-15.5); LYMPH # 0.2 x10^3/uL (1.0-4.8); LYMPH % 8 % (24-48); MEAN CORPUSCULAR HEMOGLOBIN 32 pg (25-35); MEAN CORPUSCULAR HGB CONC 32 g/dL (31-37); MEAN CORPUSCULAR VOLUME 98 fL (79-100); MONO # 0.2 x10^3/uL (0.0-1.1); MONO % 7 % (0-9); NEUT # 2.7 x10^3/uL (1.8-7.7); NEUT % 85 % (31-73); PLATELET COUNT 98 x10^3/uL (140-400); RED BLOOD COUNT 2.91 x10^6/uL (3.50-5.40); RED CELL DISTRIBUTION WIDTH 15.9 % (11.5-14.5); WHITE BLOOD COUNT 3.1 x10^3/uL (4.0-11.0)
--- NOTE | 2020-02-22 15:38 | PDOC ---
PROGRESS NOTES Chief Complaint Chief Complaint A/P: Sepsis - concern for bilateral pneumonia vs COVID 19 Panycytopenia Acute hypoxic resp failure - on Bipap CKD onHD Acute CHF Elevated troponin HTN urgency History of Present Illness History of Present Illness Ms Murillo is a 69yo F ESRD on HD, anemia who presented to [facility] on 02/19 with complaints of shortness of air, feeling chills while at dialysis. Noted in ED with a temperature of 103.2. On arrival, she had a white count of 2.8. A chest x-ray was obtained. She had bilateral infiltrates, some rounded areas of density, possible metastatic or nodules in the lungs. Subsequently, underwent a CT angiography of her chest showed there were several bilateral infiltrates, greatest in the lower lobes, although variable involvement of the other lobes and she had pulmonary hypertension. ABG 7.//64, and she had been placed on BiPAP and was given doses of azithromycin and Rocephin as well as steroids. Currently, she is lying in bed. She is feeling more comfortable. She is on BiPAP. She has had a dry cough and a little bit of diarrhea. 02/21: Repeat ABG 02/12/51/63 after hours on BIPAP 18/8 with FIO2 40%. Significant for albumin 3.1 BUN 10 CR 2.3 BNP 81086 WBC 2.8, Hb 9.8, platelets 61 lactate 1.3 troponin 0.113. Overall, speaking through BiPAP mask she states she feels better. Asking for food. Afebrile. Overnight required BIPAP again. Seen on O2 2L now. Still leukopenic. More comfortable. No BM as of yet, though she is asking for immodium. Plan: COVID 19 suspected, will f/u results, on full droplet precautions. Cont ICU CC time 38 minutes Vitals Vitals Vital Signs Date Time Temp Pulse Resp B/P (MAP) Pulse Ox O2 Delivery O2 Flow Rate FiO2 02/22/20 14:00 97 24 146/77 (100) 90 BiPAP/CPAP 02/22/20 12:14 4.0 02/22/20 12:00 97.4 97.4 Physical Exam Physical Exam GENERAL: Propped up in bed, alert and eating HEENT: normal conjunctivae, oral cavity pink, moist. No thrush. . NECK: Supple, no JVD. LUNGS: + crackles bases, no accessory muscle use. HEART: S1, S2. regular ABDOMEN: Obese, soft, nontender, no guarding. She has an umbilical hernia. EXTREMITIES: No clubbing, cyanosis or gross edema. SKIN: Warm to touch without signs of rash. NEUROLOGIC: Alert and answering questions. Moves all extremities. PIV ok General: Alert, Cooperative, moderate distress Heart: Regular rate, Normal S1, Normal S2 Abdomen: Normal bowel sounds, Soft Extremities: No clubbing, No cyanosis Skin: No rashes, No breakdown Labs LABS Laboratory Tests Test 02/21/20 22:00 02/22/20 09:20 02/22/20 12:50 Urine Collection Type Void Urine Color Yellow Urine Clarity Clear Urine pH 6.0 (<5.0-8.0) Urine Specific [place] 1.025 (1.000-1.030) Urine Protein 100 mg/dL (NEG-TRACE) Urine Glucose (UA) Negative mg/dL (NEG) Urine Ketones (Stick) Negative mg/dL (NEG) Urine Blood Trace (NEG) Urine Nitrite Negative (NEG) Urine Bilirubin Negative (NEG) Urine Urobilinogen Dipstick 0.2 mg/dL (0.2 mg/dL) Urine Leukocyte Esterase Small (NEG) Urine RBC Rare /HPF (0-2) Urine WBC 5-10 /HPF (0-4) Urine Squamous Epithelial Cells Few /LPF Urine Bacteria Few /HPF (0-FEW) O2 Saturation 89 % (92-99) Arterial Blood pH 7.33 (7.35-7.45) Arterial Blood pCO2 at Patient Temp 47 mmHg (35-46) Arterial Blood pO2 at Patient Temp 71 mmHg (65-108) Arterial Blood HCO3 24 mmol/L (21-28) Arterial Blood Base Excess -2 mmol/L (-3-3) FiO2 40 Sodium Level 138 mmol/L (136-145) Potassium Level 4.7 mmol/L (3.5-5.1) Chloride Level 100 mmol/L (98-107) Carbon Dioxide Level 26 mmol/L (21-32) Anion Gap 12 (6-14) Blood Urea Nitrogen 41 mg/dL (7-20) Creatinine 4.6 mg/dL (0.6-1.0) Estimated GFR (Cockcroft-Gault) 9.4 BUN/Creatinine Ratio 9 (6-20) Glucose Level 143 mg/dL (70-99) Calcium Level 8.0 mg/dL (8.5-10.1) Total Bilirubin 0.2 mg/dL (0.2-1.0) Aspartate Amino Transf (AST/SGOT) 27 U/L (15-37) Alanine Aminotransferase (ALT/SGPT) 16 U/L (14-59) Alkaline Phosphatase 48 U/L (46-116) Total Protein 6.4 g/dL (6.4-8.2) Albumin 2.6 g/dL (3.4-5.0) Albumin/Globulin Ratio 0.7 (1.0-1.7) Comment Review of Relevant I have reviewed the following items yoel (where applicable) has been applied. Labs Laboratory Tests Test 02/20/20 19:15 02/20/20 21:06 02/21/20 08:25 02/21/20 22:00 White Blood Count 2.8 x10^3/uL (4.0-11.0) Red Blood Count 3.09 x10^6/uL (3.50-5.40) Hemoglobin 9.8 g/dL (12.0-15.5) Hematocrit 30.0 % (36.0-47.0) Mean Corpuscular Volume 97 fL (79-100) Mean Corpuscular Hemoglobin 32 pg (25-35) Mean Corpuscular Hemoglobin Concent 33 g/dL (31-37) Red Cell Distribution Width 15.5 % (11.5-14.5) Platelet Count 61 x10^3/uL (140-400) Neutrophils (%) (Auto) 68 % (31-73) Lymphocytes (%) (Auto) 23 % (24-48) Monocytes (%) (Auto) 9 % (0-9) Eosinophils (%) (Auto) 0 % (0-3) Basophils (%) (Auto) 0 % (0-3) Neutrophils # (Auto) 1.9 x10^3/uL (1.8-7.7) Lymphocytes # (Auto) 0.6 x10^3/uL (1.0-4.8) Monocytes # (Auto) 0.2 x10^3/uL (0.0-1.1) Eosinophils # (Auto) 0.0 x10^3/uL (0.0-0.7) Basophils # (Auto) 0.0 x10^3/uL (0.0-0.2) Prothrombin Time 12.3 SEC (11.7-14.0) Prothromb Time International Ratio 1.0 (0.8-1.1) Activated Partial Thromboplast Time 37 SEC (24-38) Sodium Level 138 mmol/L (136-145) Potassium Level 3.4 mmol/L (3.5-5.1) Chloride Level 100 mmol/L (98-107) Carbon Dioxide Level 31 mmol/L (21-32) Anion Gap 7 (6-14) Blood Urea Nitrogen 10 mg/dL (7-20) Creatinine 2.3 mg/dL (0.6-1.0) Estimated GFR (Cockcroft-Gault) 21.0 BUN/Creatinine Ratio 4 (6-20) Glucose Level 112 mg/dL (70-99) Lactic Acid Level 1.3 mmol/L (0.4-2.0) Calcium Level 7.9 mg/dL (8.5-10.1) Total Bilirubin 0.3 mg/dL (0.2-1.0) Aspartate Amino Transf (AST/SGOT) 32 U/L (15-37) Alanine Aminotransferase (ALT/SGPT) 16 U/L (14-59) Alkaline Phosphatase 44 U/L (46-116) Troponin I Quantitative 0.113 ng/mL (0.000-0.055) WT-Cgc-B-Type Natriuretic Peptide 89562 pg/mL (0-124) Total Protein 6.7 g/dL (6.4-8.2) Albumin 3.1 g/dL (3.4-5.0) Albumin/Globulin Ratio 0.9 (1.0-1.7) O2 Saturation 85 % (92-99) 86 % (92-99) Arterial Blood pH 7.27 (7.35-7.45) 7.30 (7.35-7.45) Arterial Blood pH (Temp corrected) 7.25 Arterial Blood pCO2 at Patient Temp 59 mmHg (35-46) 51 mmHg (35-46) Arterial Blood pCO2 (Temp correct) 64 mmHg Arterial Blood pO2 at Patient Temp 62 mmHg (65-108) 64 mmHg (65-108) Arterial Blood pO2 (Temp corrected) 72 mmHg Arterial Blood HCO3 27 mmol/L (21-28) 25 mmol/L (21-28) Arterial Blood Base Excess -1 mmol/L (-3-3) -2 mmol/L (-3-3) FiO2 100 40% bipap Urine Collection Type Void Urine Color Yellow Urine Clarity Clear Urine pH 6.0 (<5.0-8.0) Urine Specific [place] 1.025 (1.000-1.030) Urine Protein 100 mg/dL (NEG-TRACE) Urine Glucose (UA) Negative mg/dL (NEG) Urine Ketones (Stick) Negative mg/dL (NEG) Urine Blood Trace (NEG) Urine Nitrite Negative (NEG) Urine Bilirubin Negative (NEG) Urine Urobilinogen Dipstick 0.2 mg/dL (0.2 mg/dL) Urine Leukocyte Esterase Small (NEG) Urine RBC Rare /HPF (0-2) Urine WBC 5-10 /HPF (0-4) Urine Squamous Epithelial Cells Few /LPF Urine Bacteria Few /HPF (0-FEW) Test 02/22/20 09:20 02/22/20 12:50 O2 Saturation 89 % (92-99) Arterial Blood pH 7.33 (7.35-7.45) Arterial Blood pCO2 at Patient Temp 47 mmHg (35-46) Arterial Blood pO2 at Patient Temp 71 mmHg (65-108) Arterial Blood HCO3 24 mmol/L (21-28) Arterial Blood Base Excess -2 mmol/L (-3-3) FiO2 40 Sodium Level 138 mmol/L (136-145) Potassium Level 4.7 mmol/L (3.5-5.1) Chloride Level 100 mmol/L (98-107) Carbon Dioxide Level 26 mmol/L (21-32) Anion Gap 12 (6-14) Blood Urea Nitrogen 41 mg/dL (7-20) Creatinine 4.6 mg/dL (0.6-1.0) Estimated GFR (Cockcroft-Gault) 9.4 BUN/Creatinine Ratio 9 (6-20) Glucose Level 143 mg/dL (70-99) Calcium Level 8.0 mg/dL (8.5-10.1) Total Bilirubin 0.2 mg/dL (0.2-1.0) Aspartate Amino Transf (AST/SGOT) 27 U/L (15-37) Alanine Aminotransferase (ALT/SGPT) 16 U/L (14-59) Alkaline Phosphatase 48 U/L (46-116) Total Protein 6.4 g/dL (6.4-8.2) Albumin 2.6 g/dL (3.4-5.0) Albumin/Globulin Ratio 0.7 (1.0-1.7) Laboratory Tests Test 02/21/20 22:00 02/22/20 09:20 02/22/20 12:50 Urine Collection Type Void Urine Color Yellow Urine Clarity Clear Urine pH 6.0 (<5.0-8.0) Urine Specific [place] 1.025 (1.000-1.030) Urine Protein 100 mg/dL (NEG-TRACE) Urine Glucose (UA) Negative mg/dL (NEG) Urine Ketones (Stick) Negative mg/dL (NEG) Urine Blood Trace (NEG) Urine Nitrite Negative (NEG) Urine Bilirubin Negative (NEG) Urine Urobilinogen Dipstick 0.2 mg/dL (0.2 mg/dL) Urine Leukocyte Esterase Small (NEG) Urine RBC Rare /HPF (0-2) Urine WBC 5-10 /HPF (0-4) Urine Squamous Epithelial Cells Few /LPF Urine Bacteria Few /HPF (0-FEW) O2 Saturation 89 % (92-99) Arterial Blood pH 7.33 (7.35-7.45) Arterial Blood pCO2 at Patient Temp 47 mmHg (35-46) Arterial Blood pO2 at Patient Temp 71 mmHg (65-108) Arterial Blood HCO3 24 mmol/L (21-28) Arterial Blood Base Excess -2 mmol/L (-3-3) FiO2 40 Sodium Level 138 mmol/L (136-145) Potassium Level 4.7 mmol/L (3.5-5.1) Chloride Level 100 mmol/L (98-107) Carbon Dioxide Level 26 mmol/L (21-32) Anion Gap 12 (6-14) Blood Urea Nitrogen 41 mg/dL (7-20) Creatinine 4.6 mg/dL (0.6-1.0) Estimated GFR (Cockcroft-Gault) 9.4 BUN/Creatinine Ratio 9 (6-20) Glucose Level 143 mg/dL (70-99) Calcium Level 8.0 mg/dL (8.5-10.1) Total Bilirubin 0.2 mg/dL (0.2-1.0) Aspartate Amino Transf (AST/SGOT) 27 U/L (15-37) Alanine Aminotransferase (ALT/SGPT) 16 U/L (14-59) Alkaline Phosphatase 48 U/L (46-116) Total Protein 6.4 g/dL (6.4-8.2) Albumin 2.6 g/dL (3.4-5.0) Albumin/Globulin Ratio 0.7 (1.0-1.7) Medications Current Medications Ceftriaxone Sodium (Rocephin) 1 gm 1X ONCE IVP Last administered on 02/20/20at 19:37; Start 02/20/20 at 19:30; Stop 02/20/20 at 19:31; Status DC Azithromycin 500 mg/Sodium Chloride 250 ml @ 250 mls/hr 1X ONCE IV ; Start 02/20/20 at 19:30; Stop 02/20/20 at 20:29; Status Cancel Acetaminophen (Tylenol) 1,000 mg 1X ONCE PO Last administered on 02/20/20at 19:37; Start 02/20/20 at 19:30; Stop 02/20/20 at 19:31; Status DC Azithromycin 250 ml @ 250 mls/hr 1X ONCE IV Last administered on 02/20/20at 19:37; Start 02/20/20 at 19:30; Stop 02/20/20 at 20:29; Status DC Ondansetron HCl (Zofran) 4 mg PRN Q8HRS PRN IV NAUSEA/VOMITING; Start 02/20/20 at 19:30; Stop 02/21/20 at 19:29; Status DC Iohexol (Omnipaque 350 Mg/ml) 70 ml 1X ONCE IV Last administered on 02/20/20at 22:19; Start 02/20/20 at 20:00; Stop 02/20/20 at 20:01; Status DC Info (CONTRAST GIVEN -- Rx MONITORING) 1 each PRN DAILY PRN MC SEE COMMENTS; Start 02/20/20 at 20:00; Stop 02/22/20 at 19:59 Hydralazine HCl (Apresoline Inj) 10 mg 1X ONCE IVP Last administered on 02/20/20at 20:39; Start 02/20/20 at 20:00; Stop 02/20/20 at 20:02; Status DC Multivitamins (Thera M Plus) 1 tab DAILY PO Last administered on 02/22/20at 09:01; Start 02/21/20 at 09:00 Furosemide (Lasix) 40 mg 1X ONCE IVP Last administered on 02/20/20at 20:53; Start 02/20/20 at 21:00; Stop 02/20/20 at 21:01; Status DC Methylprednisolone Sodium Succinate (SOLU-Medrol 40MG VIAL) 40 mg STK-MED ONCE .ROUTE ; Start 02/20/20 at 20:56; Stop 02/20/20 at 20:56; Status DC Methylprednisolone Sodium Succinate (SOLU-Medrol 40MG VIAL) 40 mg Q12HR IV Last administered on 02/22/20at 09:01; Start 02/21/20 at 09:00 Methylprednisolone Sodium Succinate (SOLU-Medrol 40MG VIAL) 80 mg 1X ONCE IV Last administered on 02/20/20at 21:07; Start 02/20/20 at 21:15; Stop 02/20/20 at 21:16; Status DC Lorazepam (Ativan Inj) 2 mg STK-MED ONCE .ROUTE ; Start 02/20/20 at 22:32; Stop 02/20/20 at 22:32; Status DC Norepinephrine Bitartrate 8 mg/ Dextrose 258 ml @ 13.719 mls/ hr 1X ONCE IV Last administered on 02/20/20at 23:45; Start 02/20/20 at 23:45; Stop 02/21/20 at 18:33; Status DC Lorazepam (Ativan Inj) 1 mg 1X ONCE IVP Last administered on 02/20/20at 23:45; Start 02/20/20 at 23:45; Stop 02/20/20 at 23:48; Status DC Vancomycin HCl (Vanco Per Pharmacy) 1 each PRN DAILY PRN MC SEE COMMENTS Last administered on 02/21/20at 09:57; Start 02/21/20 at 06:15 Cefepime HCl (Maxipime) 1 gm Q24H IVP Last administered on 02/22/20at 05:31; Start 02/21/20 at 06:15 Azithromycin 250 ml @ 250 mls/hr 1X ONCE IV Last administered on 02/21/20at 06:42; Start 02/21/20 at 06:30; Stop 02/21/20 at 07:29; Status DC Vancomycin HCl 1.5 gm/Sodium Chloride 500 ml @ 250 mls/hr 1X ONCE IV Last administered on 02/21/20at 13:23; Start 02/21/20 at 06:30; Stop 02/21/20 at 08:30; Status DC Vancomycin HCl (Vancomycin Random Level) 1 each 1X ONCE MC ; Start 02/23/20 at 05:00; Stop 02/23/20 at 05:01 Dextrose (Dextrose 50%-Water Syringe) 25 gm 1X ONCE IV ; Start 02/21/20 at 10:45; Stop 02/21/20 at 10:57; Status DC Insulin Human Regular (HumuLIN R VIAL) 10 unit 1X ONCE IV ; Start 02/21/20 at 10:45; Stop 02/21/20 at 10:52; Status DC Loperamide HCl (Imodium) 2 mg PRN Q15MIN PRN PO DIARRHEA Last administered on 02/21/20at 21:50; Start 02/21/20 at 18:45 Lorazepam (Ativan Inj) 0.5 mg 1X ONCE IVP Last administered on 02/21/20at 21:32; Start 02/21/20 at 21:15; Stop 02/21/20 at 21:16; Status DC Amlodipine Besylate (Norvasc) 10 mg DAILY08 PO ; Start 02/23/20 at 08:00; Status UNV Vitamin B Complex (Folbic Tablet) 1 tab DAILY PO ; Start 02/23/20 at 09:00; Status UNV Active Scripts Active Oxycodone Hcl Immed.release (Oxycodone Hcl) 5 Mg Tablet 1 Tab PO QID Vitamin D2 (Ergocalciferol (Vitamin D2)) 50,000 Unit Capsule 50,000 Unit PO WEEKLY Folbic Tablet (Cyanocobalamin/Fa/Pyridoxine) 1 Each Tablet 1 Tab PO DAILY Calcitriol 0.25 Mcg Capsule 0.25 Mcg PO DAILY Reported Sodium Bicarbonate 650 Mg Tablet 1,300 Mg PO BID Ferrous Sulfate 325 Mg Tablet 325 Mg PO TIDWMEALS Norvasc (Amlodipine Besylate) 10 Mg Tablet 10 Mg PO DAILY08 Vitals/I & O Vital Sign - Last 24 Hours 02/21/20 02/21/20 02/21/20 02/21/20 16:00 16:00 16:27 19:00 Pulse 86 84 Resp 26 26 B/P (MAP) 120/66 (84) 168/96 (120) Pulse Ox 99 100 92 O2 Delivery Nasal Cannula Nasal Cannula Nasal Cannula Nasal Cannula O2 Flow Rate 3.0 3.0 5.0 3.0 02/21/20 02/21/20 02/21/20 02/21/20 20:00 20:02 20:30 22:00 Pulse 104 104 Resp B/P (MAP) 190/88 (122) Pulse Ox 94 95 92 O2 Delivery Nasal Cannula BiPAP/CPAP Nasal Cannula Nasal Cannula O2 Flow Rate 3.0 3.0 3.0 02/21/20 02/22/20 02/22/20 02/22/20 23:33 00:00 00:30 04:00 Temp 98.6 98.6 Pulse 76 84 Resp B/P (MAP) 136/81 (99) 119/63 (81) Pulse Ox 96 94 95 O2 Delivery Bi-pap BiPAP/CPAP BiPAP/CPAP Nasal Cannula O2 Flow Rate 4.0 02/22/20 02/22/20 02/22/20 02/22/20 04:00 07:00 08:00 08:00 Temp 98.6 98.6 Pulse 78 84 Resp B/P (MAP) 153/75 (101) 153/85 (107) Pulse Ox 96 96 O2 Delivery Bi-pap BiPAP/CPAP BiPAP/CPAP Nasal Cannula O2 Flow Rate 4.0 02/22/20 02/22/20 02/22/20 02/22/20 09:00 09:00 10:00 11:00 Pulse 80 71 80 Resp 24 B/P (MAP) 148/83 (104) 152/83 (106) 172/87 (115) Pulse Ox 95 96 97 94 O2 Delivery BiPAP/CPAP BiPAP/CPAP BiPAP/CPAP BiPAP/CPAP 02/22/20 02/22/20 02/22/20 02/22/20 12:00 12:00 12:14 13:00 Temp 97.4 97.4 Pulse 82 87 Resp B/P (MAP) 151/75 (100) 127/87 (100) Pulse Ox 93 97 90 O2 Delivery BiPAP/CPAP Nasal Cannula Nasal Cannula BiPAP/CPAP O2 Flow Rate 3.0 4.0 02/22/20 14:00 Pulse 97 Resp 24 B/P (MAP) 146/77 (100) Pulse Ox 90 O2 Delivery BiPAP/CPAP Intake and Output 02/21/20 02/21/20 02/22/20 15:00 23:00 07:00 Intake Total 250 ml 250 ml Output Total 350 ml 200 ml Balance -100 ml 50 ml Justicifation of Admission Dx: Justifications for Admission: Justification of Admission Dx: Yes Respiratory Failure: Severe Resp Distress LICO NOBLE MD Feb 22, 2020 15:38
[2020-02-22 16:06] LABS: % BANDS 4 % (0-9); % LYMPHS 11 % (24-48); % MONOS 4 % (0-10); % SEGS 81 % (35-66); PLT ESTIMATE DECREASED (ADEQUATE)
[2020-02-22 16:07] LABS: POLYCHROMASIA SLIGHT
[2020-02-22] MEDS: ACETAMINOPHEN 325 MG TABLET. PO PRN (21:14)
[2020-02-22] MEDS: HEPARIN for SUB-Q USE 5,000 UNIT/ML VIAL. SQ SCH (21:55)
[2020-02-23] VITALS (24 sets, daily range): BP systolic 117–183; BP diastolic 67–90
[2020-02-23] MEDS ORDERED: VANCOMYCIN RANDOM LEVEL. MC ONE (05:00)
[2020-02-23 05:51] LABS: BASO % 0 % (0-3); EOS % 0 % (0-3); HEMOGLOBIN 8.9 g/dL (12.0-15.5); LYMPH # 0.3 x10^3/uL (1.0-4.8); LYMPH % 11 % (24-48); MEAN CORPUSCULAR HEMOGLOBIN 32 pg (25-35); MEAN CORPUSCULAR HGB CONC 33 g/dL (31-37); MEAN CORPUSCULAR VOLUME 97 fL (79-100); MONO # 0.2 x10^3/uL (0.0-1.1); MONO % 8 % (0-9); NEUT # 2.4 x10^3/uL (1.8-7.7); NEUT % 82 % (31-73); PLATELET COUNT 101 x10^3/uL (140-400); RED BLOOD COUNT 2.78 x10^6/uL (3.50-5.40); WHITE BLOOD COUNT 2.9 x10^3/uL (4.0-11.0)
[2020-02-23 06:25] LABS: ALBUMIN 2.4 g/dL (3.4-5.0); CREATININE 5.2 mg/dL (0.6-1.0); GFR 8.2; PHOSPHORUS 5.1 mg/dL (2.6-4.7)
[2020-02-23] MEDS: CEFEPIME HCL IV Push 1 GM VIAL. IVP SCH (06:28)
[2020-02-23] MEDS: HEPARIN for SUB-Q USE 5,000 UNIT/ML VIAL. SQ SCH ×3 (06:29→21:50)
[2020-02-23 06:56] LABS: POTASSIUM 4.4 mmol/L (3.5-5.1)
--- NOTE | 2020-02-23 08:26 | PDOC ---
Infectious Disease Note Subjective Subjective Feeling better Less work of breathing O2 at 4.5L No fevers/chills last 24 hrs Denies aches/N/V ROS ROS no n/v/d/ Vital Sign Vital Signs Vital Signs Date Time Temp Pulse Resp B/P (MAP) Pulse Ox O2 Delivery O2 Flow Rate FiO2 02/23/20 07:00 78 18 168/82 (110) 96 Nasal Cannula 5.0 02/23/20 05:00 98.1 98.1 Physical Exam PHYSICAL EXAM GENERAL: Propped up in bed, alert and eating HEENT: normal conjunctivae, oral cavity pink, moist. No thrush. . NECK: Supple, no JVD. LUNGS: + crackles bases, no accessory muscle use. HEART: S1, S2. regular ABDOMEN: Obese, soft, nontender, no guarding. She has an umbilical hernia. EXTREMITIES: No clubbing, cyanosis or gross edema. SKIN: Warm to touch without signs of rash. NEUROLOGIC: Alert and answering questions. Moves all extremities. PIV ok Labs Lab Laboratory Tests Test 02/22/20 09:20 02/22/20 12:50 02/22/20 15:20 02/23/20 05:15 O2 Saturation 89 % (92-99) Arterial Blood pH 7.33 (7.35-7.45) Arterial Blood pCO2 at Patient Temp 47 mmHg (35-46) Arterial Blood pO2 at Patient Temp 71 mmHg (65-108) Arterial Blood HCO3 24 mmol/L (21-28) Arterial Blood Base Excess -2 mmol/L (-3-3) FiO2 40 Sodium Level 138 mmol/L (136-145) 139 mmol/L (136-145) Potassium Level 4.7 mmol/L (3.5-5.1) 4.4 mmol/L (3.5-5.1) Chloride Level 100 mmol/L (98-107) 102 mmol/L (98-107) Carbon Dioxide Level 26 mmol/L (21-32) 27 mmol/L (21-32) Anion Gap 12 (6-14) 10 (6-14) Blood Urea Nitrogen 41 mg/dL (7-20) 46 mg/dL (7-20) Creatinine 4.6 mg/dL (0.6-1.0) 5.2 mg/dL (0.6-1.0) Estimated GFR (Cockcroft-Gault) 9.4 8.2 BUN/Creatinine Ratio 9 (6-20) Glucose Level 143 mg/dL (70-99) 145 mg/dL (70-99) Calcium Level 8.0 mg/dL (8.5-10.1) 8.0 mg/dL (8.5-10.1) Total Bilirubin 0.2 mg/dL (0.2-1.0) Aspartate Amino Transf (AST/SGOT) 27 U/L (15-37) Alanine Aminotransferase (ALT/SGPT) 16 U/L (14-59) Alkaline Phosphatase 48 U/L (46-116) Total Protein 6.4 g/dL (6.4-8.2) Albumin 2.6 g/dL (3.4-5.0) 2.4 g/dL (3.4-5.0) Albumin/Globulin Ratio 0.7 (1.0-1.7) White Blood Count 3.1 x10^3/uL (4.0-11.0) 2.9 x10^3/uL (4.0-11.0) Red Blood Count 2.91 x10^6/uL (3.50-5.40) 2.78 x10^6/uL (3.50-5.40) Hemoglobin 9.2 g/dL (12.0-15.5) 8.9 g/dL (12.0-15.5) Hematocrit 28.4 % (36.0-47.0) 27.0 % (36.0-47.0) Mean Corpuscular Volume 98 fL (79-100) 97 fL (79-100) Mean Corpuscular Hemoglobin 32 pg (25-35) 32 pg (25-35) Mean Corpuscular Hemoglobin Concent 32 g/dL (31-37) 33 g/dL (31-37) Red Cell Distribution Width 15.9 % (11.5-14.5) 16.0 % (11.5-14.5) Platelet Count 98 x10^3/uL (140-400) 101 x10^3/uL (140-400) Neutrophils (%) (Auto) 85 % (31-73) 82 % (31-73) Lymphocytes (%) (Auto) 8 % (24-48) 11 % (24-48) Monocytes (%) (Auto) 7 % (0-9) 8 % (0-9) Eosinophils (%) (Auto) 0 % (0-3) 0 % (0-3) Basophils (%) (Auto) 0 % (0-3) 0 % (0-3) Neutrophils # (Auto) 2.7 x10^3/uL (1.8-7.7) 2.4 x10^3/uL (1.8-7.7) Lymphocytes # (Auto) 0.2 x10^3/uL (1.0-4.8) 0.3 x10^3/uL (1.0-4.8) Monocytes # (Auto) 0.2 x10^3/uL (0.0-1.1) 0.2 x10^3/uL (0.0-1.1) Eosinophils # (Auto) 0.0 x10^3/uL (0.0-0.7) 0.0 x10^3/uL (0.0-0.7) Basophils # (Auto) 0.0 x10^3/uL (0.0-0.2) 0.0 x10^3/uL (0.0-0.2) Segmented Neutrophils % 81 % (35-66) Band Neutrophils % 4 % (0-9) Lymphocytes % 11 % (24-48) Monocytes % 4 % (0-10) Platelet Estimate Decreased (ADEQUATE) Polychromasia Slight Phosphorus Level 5.1 mg/dL (2.6-4.7) Random Vancomycin Level 23.7 mcg/mL Objective Assessment Fever - better Pancytopenia. PENICILLIN ALLERGY. Acute hypoxic respiratory failure, off BiPAP; now on 4.5L Congestive heart failure. Plan Plan of Care Steroids per Pulm Vanc/Cefepime/Azithromycin Today's labs still pending f/u UC Airborne isolation till COVID resulted D/w nursing CLINTON MONTANO MD Feb 23, 2020 08:26
--- NOTE | 2020-02-23 08:27 | PDOC ---
PULMONARY PROGRESS NOTES Subjective Patient continues to be short of air, off of BiPAP at this time. No chest pain no pressure no nausea vomiting diarrhea Vitals Vital Signs Date Time Temp Pulse Resp B/P (MAP) Pulse Ox O2 Delivery O2 Flow Rate FiO2 02/23/20 07:00 78 18 168/82 (110) 96 Nasal Cannula 5.0 02/23/20 05:00 98.1 98.1 ROS: No Nausea, No Chest Pain, No Abdominal Pain, No Increase Cough General: Alert HEENT: Other Lungs: Clear Cardiovascular: S1, S2 Abdomen: Soft Neuro Exam: Alert Extremities: No Edema Skin: Warm, No Rashes Labs Laboratory Tests Test 02/21/20 22:00 02/22/20 09:20 02/22/20 12:50 02/22/20 15:20 Urine Collection Type Void Urine Color Yellow Urine Clarity Clear Urine pH 6.0 (<5.0-8.0) Urine Specific Anton 1.025 (1.000-1.030) Urine Protein 100 mg/dL (NEG-TRACE) Urine Glucose (UA) Negative mg/dL (NEG) Urine Ketones (Stick) Negative mg/dL (NEG) Urine Blood Trace (NEG) Urine Nitrite Negative (NEG) Urine Bilirubin Negative (NEG) Urine Urobilinogen Dipstick 0.2 mg/dL (0.2 mg/dL) Urine Leukocyte Esterase Small (NEG) Urine RBC Rare /HPF (0-2) Urine WBC 5-10 /HPF (0-4) Urine Squamous Epithelial Cells Few /LPF Urine Bacteria Few /HPF (0-FEW) O2 Saturation 89 % (92-99) Arterial Blood pH 7.33 (7.35-7.45) Arterial Blood pCO2 at Patient Temp 47 mmHg (35-46) Arterial Blood pO2 at Patient Temp 71 mmHg (65-108) Arterial Blood HCO3 24 mmol/L (21-28) Arterial Blood Base Excess -2 mmol/L (-3-3) FiO2 40 Sodium Level 138 mmol/L (136-145) Potassium Level 4.7 mmol/L (3.5-5.1) Chloride Level 100 mmol/L (98-107) Carbon Dioxide Level 26 mmol/L (21-32) Anion Gap 12 (6-14) Blood Urea Nitrogen 41 mg/dL (7-20) Creatinine 4.6 mg/dL (0.6-1.0) Estimated GFR (Cockcroft-Gault) 9.4 BUN/Creatinine Ratio 9 (6-20) Glucose Level 143 mg/dL (70-99) Calcium Level 8.0 mg/dL (8.5-10.1) Total Bilirubin 0.2 mg/dL (0.2-1.0) Aspartate Amino Transf (AST/SGOT) 27 U/L (15-37) Alanine Aminotransferase (ALT/SGPT) 16 U/L (14-59) Alkaline Phosphatase 48 U/L (46-116) Total Protein 6.4 g/dL (6.4-8.2) Albumin 2.6 g/dL (3.4-5.0) Albumin/Globulin Ratio 0.7 (1.0-1.7) White Blood Count 3.1 x10^3/uL (4.0-11.0) Red Blood Count 2.91 x10^6/uL (3.50-5.40) Hemoglobin 9.2 g/dL (12.0-15.5) Hematocrit 28.4 % (36.0-47.0) Mean Corpuscular Volume 98 fL (79-100) Mean Corpuscular Hemoglobin 32 pg (25-35) Mean Corpuscular Hemoglobin Concent 32 g/dL (31-37) Red Cell Distribution Width 15.9 % (11.5-14.5) Platelet Count 98 x10^3/uL (140-400) Neutrophils (%) (Auto) 85 % (31-73) Lymphocytes (%) (Auto) 8 % (24-48) Monocytes (%) (Auto) 7 % (0-9) Eosinophils (%) (Auto) 0 % (0-3) Basophils (%) (Auto) 0 % (0-3) Neutrophils # (Auto) 2.7 x10^3/uL (1.8-7.7) Lymphocytes # (Auto) 0.2 x10^3/uL (1.0-4.8) Monocytes # (Auto) 0.2 x10^3/uL (0.0-1.1) Eosinophils # (Auto) 0.0 x10^3/uL (0.0-0.7) Basophils # (Auto) 0.0 x10^3/uL (0.0-0.2) Segmented Neutrophils % 81 % (35-66) Band Neutrophils % 4 % (0-9) Lymphocytes % 11 % (24-48) Monocytes % 4 % (0-10) Platelet Estimate Decreased (ADEQUATE) Polychromasia Slight Test 02/23/20 05:15 White Blood Count 2.9 x10^3/uL (4.0-11.0) Red Blood Count 2.78 x10^6/uL (3.50-5.40) Hemoglobin 8.9 g/dL (12.0-15.5) Hematocrit 27.0 % (36.0-47.0) Mean Corpuscular Volume 97 fL (79-100) Mean Corpuscular Hemoglobin 32 pg (25-35) Mean Corpuscular Hemoglobin Concent 33 g/dL (31-37) Red Cell Distribution Width 16.0 % (11.5-14.5) Platelet Count 101 x10^3/uL (140-400) Neutrophils (%) (Auto) 82 % (31-73) Lymphocytes (%) (Auto) 11 % (24-48) Monocytes (%) (Auto) 8 % (0-9) Eosinophils (%) (Auto) 0 % (0-3) Basophils (%) (Auto) 0 % (0-3) Neutrophils # (Auto) 2.4 x10^3/uL (1.8-7.7) Lymphocytes # (Auto) 0.3 x10^3/uL (1.0-4.8) Monocytes # (Auto) 0.2 x10^3/uL (0.0-1.1) Eosinophils # (Auto) 0.0 x10^3/uL (0.0-0.7) Basophils # (Auto) 0.0 x10^3/uL (0.0-0.2) Sodium Level 139 mmol/L (136-145) Potassium Level 4.4 mmol/L (3.5-5.1) Chloride Level 102 mmol/L (98-107) Carbon Dioxide Level 27 mmol/L (21-32) Anion Gap 10 (6-14) Blood Urea Nitrogen 46 mg/dL (7-20) Creatinine 5.2 mg/dL (0.6-1.0) Estimated GFR (Cockcroft-Gault) 8.2 Glucose Level 145 mg/dL (70-99) Calcium Level 8.0 mg/dL (8.5-10.1) Phosphorus Level 5.1 mg/dL (2.6-4.7) Albumin 2.4 g/dL (3.4-5.0) Random Vancomycin Level 23.7 mcg/mL Laboratory Tests Test 02/22/20 09:20 02/22/20 12:50 02/22/20 15:20 02/23/20 05:15 O2 Saturation 89 % (92-99) Arterial Blood pH 7.33 (7.35-7.45) Arterial Blood pCO2 at Patient Temp 47 mmHg (35-46) Arterial Blood pO2 at Patient Temp 71 mmHg (65-108) Arterial Blood HCO3 24 mmol/L (21-28) Arterial Blood Base Excess -2 mmol/L (-3-3) FiO2 40 Sodium Level 138 mmol/L (136-145) 139 mmol/L (136-145) Potassium Level 4.7 mmol/L (3.5-5.1) 4.4 mmol/L (3.5-5.1) Chloride Level 100 mmol/L (98-107) 102 mmol/L (98-107) Carbon Dioxide Level 26 mmol/L (21-32) 27 mmol/L (21-32) Anion Gap 12 (6-14) 10 (6-14) Blood Urea Nitrogen 41 mg/dL (7-20) 46 mg/dL (7-20) Creatinine 4.6 mg/dL (0.6-1.0) 5.2 mg/dL (0.6-1.0) Estimated GFR (Cockcroft-Gault) 9.4 8.2 BUN/Creatinine Ratio 9 (6-20) Glucose Level 143 mg/dL (70-99) 145 mg/dL (70-99) Calcium Level 8.0 mg/dL (8.5-10.1) 8.0 mg/dL (8.5-10.1) Total Bilirubin 0.2 mg/dL (0.2-1.0) Aspartate Amino Transf (AST/SGOT) 27 U/L (15-37) Alanine Aminotransferase (ALT/SGPT) 16 U/L (14-59) Alkaline Phosphatase 48 U/L (46-116) Total Protein 6.4 g/dL (6.4-8.2) Albumin 2.6 g/dL (3.4-5.0) 2.4 g/dL (3.4-5.0) Albumin/Globulin Ratio 0.7 (1.0-1.7) White Blood Count 3.1 x10^3/uL (4.0-11.0) 2.9 x10^3/uL (4.0-11.0) Red Blood Count 2.91 x10^6/uL (3.50-5.40) 2.78 x10^6/uL (3.50-5.40) Hemoglobin 9.2 g/dL (12.0-15.5) 8.9 g/dL (12.0-15.5) Hematocrit 28.4 % (36.0-47.0) 27.0 % (36.0-47.0) Mean Corpuscular Volume 98 fL (79-100) 97 fL (79-100) Mean Corpuscular Hemoglobin 32 pg (25-35) 32 pg (25-35) Mean Corpuscular Hemoglobin Concent 32 g/dL (31-37) 33 g/dL (31-37) Red Cell Distribution Width 15.9 % (11.5-14.5) 16.0 % (11.5-14.5) Platelet Count 98 x10^3/uL (140-400) 101 x10^3/uL (140-400) Neutrophils (%) (Auto) 85 % (31-73) 82 % (31-73) Lymphocytes (%) (Auto) 8 % (24-48) 11 % (24-48) Monocytes (%) (Auto) 7 % (0-9) 8 % (0-9) Eosinophils (%) (Auto) 0 % (0-3) 0 % (0-3) Basophils (%) (Auto) 0 % (0-3) 0 % (0-3) Neutrophils # (Auto) 2.7 x10^3/uL (1.8-7.7) 2.4 x10^3/uL (1.8-7.7) Lymphocytes # (Auto) 0.2 x10^3/uL (1.0-4.8) 0.3 x10^3/uL (1.0-4.8) Monocytes # (Auto) 0.2 x10^3/uL (0.0-1.1) 0.2 x10^3/uL (0.0-1.1) Eosinophils # (Auto) 0.0 x10^3/uL (0.0-0.7) 0.0 x10^3/uL (0.0-0.7) Basophils # (Auto) 0.0 x10^3/uL (0.0-0.2) 0.0 x10^3/uL (0.0-0.2) Segmented Neutrophils % 81 % (35-66) Band Neutrophils % 4 % (0-9) Lymphocytes % 11 % (24-48) Monocytes % 4 % (0-10) Platelet Estimate Decreased (ADEQUATE) Polychromasia Slight Phosphorus Level 5.1 mg/dL (2.6-4.7) Random Vancomycin Level 23.7 mcg/mL Medications Active Scripts Medications Dose Route/Sig Max Daily Dose Days Date Category Oxycodone Hcl Immed.release (Oxycodone Hcl) 5 Mg Tablet 1 Tab PO QID 04/15/18 Rx Sodium Bicarbonate 650 Mg Tablet 1,300 Mg PO BID 06/10/17 Reported Ferrous Sulfate 325 Mg Tablet 325 Mg PO TIDWMEALS 06/10/17 Reported Vitamin D2 (Ergocalciferol (Vitamin D2)) 50,000 Unit Capsule 50,000 Unit PO WEEKLY 12/07/16 Rx Folbic Tablet (Cyanocobalamin/Fa/Pyridoxine) 1 Each Tablet 1 Tab PO DAILY 12/07/16 Rx Calcitriol 0.25 Mcg Capsule 0.25 Mcg PO DAILY 12/07/16 Rx Norvasc (Amlodipine Besylate) 10 Mg Tablet 10 Mg PO DAILY08 09/04/13 Reported Comments cta reviewed 1. There are severe bilateral infiltrates greatest of the lower lobes although variable involvement of the other lobes. 2. There is coronary calcification. 3. Main pulmonary artery dilatation suggests pulmonary hypertension. no central pe Impression . IMPRESSION: 1. Acute hypoxemic respiratory failure secondary COVID-19 viral pneumonia 2. Abnormal chest x-ray. 3. Febrile illness. 4. Pancytopenia. 5. Acute diastolic congestive heart failure. 6. End-stage renal disease, on hemodialysis. 7. SARS-CoV-[address] chest Impression: 1. There are severe bilateral infiltrates greatest of the lower lobes although variable involvement of the other lobes. 2. There is coronary calcification. 3. Main pulmonary artery dilatation suggests pulmonary hypertension. Plan . Continue support with oxygen supplementation Steroids And hemodialysis per nephrology Follow cultures Initiate Remdisivir, spoke with pharmacy and RN DVT GI prophylaxis Total cumulative critical care time of 30 minutes, reviewing data, labs, chest x-ray, and formulating a plan. LYRIC SMART MD Feb 23, 2020 08:27
[2020-02-23] MEDS: amLODIPine BESYLATE 10 MG TABLET PO SCH (08:42)
[2020-02-23] MEDS: methylPREDNISolone SOD SUCC PF 40 MG/ML VIAL. IV SCH ×2 (08:42→21:49)
[2020-02-23] MEDS: MULTIVITAMIN with MINERAL TABLET. PO SCH (08:42)
[2020-02-23] MEDS: VITAMIN B12,B9,B6 COMPLEX 1 TABLET. PO SCH (08:42)
[2020-02-23] MEDS: AMINO AC 3%/ELECTROLYTE/GLYCER 1,000 ML IV SCH (10:46)
[2020-02-23] MEDS: VANCOMYCIN PER PHARMACY MC PRN (11:25)
--- NOTE | 2020-02-23 11:31 | NUR ---
Pharmacy Vancomycin Dosing Note S:Consulted to monitor and dose vancomycin started 02/21/20. O:WILLOW HERR is a 69 year old F with Pneumonia . Height: 5 feet, 5 inches Weight: 62.5 kg [place] Body Weight: 57.00 Adjusted Body Weight: 59.20 Dosing Weight: Actual Other Antibiotics: CEFEPIME LABS: Last BUN: 46 Last Creatinine: 5.2 (HD MWF) Creatinine Clearance: 20 mL/min Last WBC: 2.9 Last Procalcitonin: - Tmax (past 24 hours): 102.4 Microbiology: I/O: 840/140 Drug Levels: Last Random level: 23.7 on 02/23/20 at 0515 Last dose given 02/21/20 at 1000 Vancomycin Dosing: Loading Dose: 1500 mg x1 Dosing Weight: Actual Target Trough: 15-20 A: Based on: LEVEL 23.7, HD SCHEDULE, P: 1. INITIATE Vancomycin 500 mg IV POST HD MWF 2. Follow up Random level NEEDED 3. Pharmacy will continue to monitor, follow and adjust therapy as needed. ODILON CR Dung, 02/23/20 [id number]
--- NOTE | 2020-02-23 11:40 | PDOC ---
PROGRESS NOTES Chief Complaint Chief Complaint A/P: Sepsis - concern for bilateral pneumonia vs COVID 19 COVID-19SARS COV2+ Panycytopenia Acute hypoxic resp failure - on Bipap CKD onHD Acute CHF Elevated troponin HTN urgency Severe protein calorie malnutrition History of Present Illness History of Present Illness Ms Murillo is a 69yo F ESRD on HD, anemia who presented to [facility] on 02/19 with complaints of shortness of air, feeling chills while at dialysis. Noted in ED with a temperature of 103.2. On arrival, she had a white count of 2.8. A chest x-ray was obtained. She had bilateral infiltrates, some rounded areas of density, possible metastatic or nodules in the lungs. Subsequently, underwent a CT angiography of her chest showed there were several bilateral infiltrates, greatest in the lower lobes, although variable involvement of the other lobes and she had pulmonary hypertension. ABG 7./59/64, and she had been placed on BiPAP and was given doses of azithromycin and Rocephin as well as steroids. Currently, she is lying in bed. She is feeling more comfortable. She is on BiPAP. She has had a dry cough and a little bit of diarrhea. 02/21: Repeat ABG 02/12//63 after hours on BIPAP 18/8 with FIO2 40%. Significant for albumin 3.1 BUN 10 CR 2.3 BNP 36939 WBC 2.8, Hb 9.8, platelets 61 lactate 1.3 troponin 0.113. Overall, speaking through BiPAP mask she states she feels better. Asking for food. Afebrile. Overnight required BIPAP again. Seen on O2 5L now. Still leukopenic. More comfortable. No BM as of yet, though she is asking for immodium. COVID-19 positive results discussed. Plan: COVID 19 positive, will f/u results, on full droplet precautions. Cont ICU CC time 38 minutes Vitals Vitals Vital Signs Date Time Temp Pulse Resp B/P (MAP) Pulse Ox O2 Delivery O2 Flow Rate FiO2 02/23/20 11:00 75 26 165/88 (113) 90 BiPAP/CPAP 02/23/20 08:00 5.0 02/23/20 08:00 97.9 97.9 Physical Exam Physical Exam GENERAL: Propped up in bed, alert and eating HEENT: normal conjunctivae, oral cavity pink, moist. No thrush. . NECK: Supple, no JVD. LUNGS: + crackles bases, no accessory muscle use. HEART: S1, S2. regular ABDOMEN: Obese, soft, nontender, no guarding. She has an umbilical hernia. EXTREMITIES: No clubbing, cyanosis or gross edema. SKIN: Warm to touch without signs of rash. NEUROLOGIC: Alert and answering questions. Moves all extremities. PIV ok General: Alert, Cooperative, moderate distress Heart: Regular rate, Normal S1, Normal S2 Abdomen: Normal bowel sounds, Soft Extremities: No clubbing, No cyanosis Skin: No rashes, No breakdown Labs LABS Laboratory Tests Test 02/22/20 12:50 02/22/20 15:20 02/23/20 05:15 Sodium Level 138 mmol/L (136-145) 139 mmol/L (136-145) Potassium Level 4.7 mmol/L (3.5-5.1) 4.4 mmol/L (3.5-5.1) Chloride Level 100 mmol/L (98-107) 102 mmol/L (98-107) Carbon Dioxide Level 26 mmol/L (21-32) 27 mmol/L (21-32) Anion Gap 12 (6-14) 10 (6-14) Blood Urea Nitrogen 41 mg/dL (7-20) 46 mg/dL (7-20) Creatinine 4.6 mg/dL (0.6-1.0) 5.2 mg/dL (0.6-1.0) Estimated GFR (Cockcroft-Gault) 9.4 8.2 BUN/Creatinine Ratio 9 (6-20) Glucose Level 143 mg/dL (70-99) 145 mg/dL (70-99) Calcium Level 8.0 mg/dL (8.5-10.1) 8.0 mg/dL (8.5-10.1) Total Bilirubin 0.2 mg/dL (0.2-1.0) Aspartate Amino Transf (AST/SGOT) 27 U/L (15-37) Alanine Aminotransferase (ALT/SGPT) 16 U/L (14-59) Alkaline Phosphatase 48 U/L (46-116) Total Protein 6.4 g/dL (6.4-8.2) Albumin 2.6 g/dL (3.4-5.0) 2.4 g/dL (3.4-5.0) Albumin/Globulin Ratio 0.7 (1.0-1.7) White Blood Count 3.1 x10^3/uL (4.0-11.0) 2.9 x10^3/uL (4.0-11.0) Red Blood Count 2.91 x10^6/uL (3.50-5.40) 2.78 x10^6/uL (3.50-5.40) Hemoglobin 9.2 g/dL (12.0-15.5) 8.9 g/dL (12.0-15.5) Hematocrit 28.4 % (36.0-47.0) 27.0 % (36.0-47.0) Mean Corpuscular Volume 98 fL (79-100) 97 fL (79-100) Mean Corpuscular Hemoglobin 32 pg (25-35) 32 pg (25-35) Mean Corpuscular Hemoglobin Concent 32 g/dL (31-37) 33 g/dL (31-37) Red Cell Distribution Width 15.9 % (11.5-14.5) 16.0 % (11.5-14.5) Platelet Count 98 x10^3/uL (140-400) 101 x10^3/uL (140-400) Neutrophils (%) (Auto) 85 % (31-73) 82 % (31-73) Lymphocytes (%) (Auto) 8 % (24-48) 11 % (24-48) Monocytes (%) (Auto) 7 % (0-9) 8 % (0-9) Eosinophils (%) (Auto) 0 % (0-3) 0 % (0-3) Basophils (%) (Auto) 0 % (0-3) 0 % (0-3) Neutrophils # (Auto) 2.7 x10^3/uL (1.8-7.7) 2.4 x10^3/uL (1.8-7.7) Lymphocytes # (Auto) 0.2 x10^3/uL (1.0-4.8) 0.3 x10^3/uL (1.0-4.8) Monocytes # (Auto) 0.2 x10^3/uL (0.0-1.1) 0.2 x10^3/uL (0.0-1.1) Eosinophils # (Auto) 0.0 x10^3/uL (0.0-0.7) 0.0 x10^3/uL (0.0-0.7) Basophils # (Auto) 0.0 x10^3/uL (0.0-0.2) 0.0 x10^3/uL (0.0-0.2) Segmented Neutrophils % 81 % (35-66) Band Neutrophils % 4 % (0-9) Lymphocytes % 11 % (24-48) Monocytes % 4 % (0-10) Platelet Estimate Decreased (ADEQUATE) Polychromasia Slight Phosphorus Level 5.1 mg/dL (2.6-4.7) Random Vancomycin Level 23.7 mcg/mL Comment Review of Relevant I have reviewed the following items yoel (where applicable) has been applied. Labs Laboratory Tests Test 02/21/20 22:00 02/22/20 09:20 02/22/20 12:50 02/22/20 15:20 Urine Collection Type Void Urine Color Yellow Urine Clarity Clear Urine pH 6.0 (<5.0-8.0) Urine Specific [place] 1.025 (1.000-1.030) Urine Protein 100 mg/dL (NEG-TRACE) Urine Glucose (UA) Negative mg/dL (NEG) Urine Ketones (Stick) Negative mg/dL (NEG) Urine Blood Trace (NEG) Urine Nitrite Negative (NEG) Urine Bilirubin Negative (NEG) Urine Urobilinogen Dipstick 0.2 mg/dL (0.2 mg/dL) Urine Leukocyte Esterase Small (NEG) Urine RBC Rare /HPF (0-2) Urine WBC 5-10 /HPF (0-4) Urine Squamous Epithelial Cells Few /LPF Urine Bacteria Few /HPF (0-FEW) O2 Saturation 89 % (92-99) Arterial Blood pH 7.33 (7.35-7.45) Arterial Blood pCO2 at Patient Temp 47 mmHg (35-46) Arterial Blood pO2 at Patient Temp 71 mmHg (65-108) Arterial Blood HCO3 24 mmol/L (21-28) Arterial Blood Base Excess -2 mmol/L (-3-3) FiO2 40 Sodium Level 138 mmol/L (136-145) Potassium Level 4.7 mmol/L (3.5-5.1) Chloride Level 100 mmol/L (98-107) Carbon Dioxide Level 26 mmol/L (21-32) Anion Gap 12 (6-14) Blood Urea Nitrogen 41 mg/dL (7-20) Creatinine 4.6 mg/dL (0.6-1.0) Estimated GFR (Cockcroft-Gault) 9.4 BUN/Creatinine Ratio 9 (6-20) Glucose Level 143 mg/dL (70-99) Calcium Level 8.0 mg/dL (8.5-10.1) Total Bilirubin 0.2 mg/dL (0.2-1.0) Aspartate Amino Transf (AST/SGOT) 27 U/L (15-37) Alanine Aminotransferase (ALT/SGPT) 16 U/L (14-59) Alkaline Phosphatase 48 U/L (46-116) Total Protein 6.4 g/dL (6.4-8.2) Albumin 2.6 g/dL (3.4-5.0) Albumin/Globulin Ratio 0.7 (1.0-1.7) White Blood Count 3.1 x10^3/uL (4.0-11.0) Red Blood Count 2.91 x10^6/uL (3.50-5.40) Hemoglobin 9.2 g/dL (12.0-15.5) Hematocrit 28.4 % (36.0-47.0) Mean Corpuscular Volume 98 fL (79-100) Mean Corpuscular Hemoglobin 32 pg (25-35) Mean Corpuscular Hemoglobin Concent 32 g/dL (31-37) Red Cell Distribution Width 15.9 % (11.5-14.5) Platelet Count 98 x10^3/uL (140-400) Neutrophils (%) (Auto) 85 % (31-73) Lymphocytes (%) (Auto) 8 % (24-48) Monocytes (%) (Auto) 7 % (0-9) Eosinophils (%) (Auto) 0 % (0-3) Basophils (%) (Auto) 0 % (0-3) Neutrophils # (Auto) 2.7 x10^3/uL (1.8-7.7) Lymphocytes # (Auto) 0.2 x10^3/uL (1.0-4.8) Monocytes # (Auto) 0.2 x10^3/uL (0.0-1.1) Eosinophils # (Auto) 0.0 x10^3/uL (0.0-0.7) Basophils # (Auto) 0.0 x10^3/uL (0.0-0.2) Segmented Neutrophils % 81 % (35-66) Band Neutrophils % 4 % (0-9) Lymphocytes % 11 % (24-48) Monocytes % 4 % (0-10) Platelet Estimate Decreased (ADEQUATE) Polychromasia Slight Test 02/23/20 05:15 White Blood Count 2.9 x10^3/uL (4.0-11.0) Red Blood Count 2.78 x10^6/uL (3.50-5.40) Hemoglobin 8.9 g/dL (12.0-15.5) Hematocrit 27.0 % (36.0-47.0) Mean Corpuscular Volume 97 fL (79-100) Mean Corpuscular Hemoglobin 32 pg (25-35) Mean Corpuscular Hemoglobin Concent 33 g/dL (31-37) Red Cell Distribution Width 16.0 % (11.5-14.5) Platelet Count 101 x10^3/uL (140-400) Neutrophils (%) (Auto) 82 % (31-73) Lymphocytes (%) (Auto) 11 % (24-48) Monocytes (%) (Auto) 8 % (0-9) Eosinophils (%) (Auto) 0 % (0-3) Basophils (%) (Auto) 0 % (0-3) Neutrophils # (Auto) 2.4 x10^3/uL (1.8-7.7) Lymphocytes # (Auto) 0.3 x10^3/uL (1.0-4.8) Monocytes # (Auto) 0.2 x10^3/uL (0.0-1.1) Eosinophils # (Auto) 0.0 x10^3/uL (0.0-0.7) Basophils # (Auto) 0.0 x10^3/uL (0.0-0.2) Sodium Level 139 mmol/L (136-145) Potassium Level 4.4 mmol/L (3.5-5.1) Chloride Level 102 mmol/L (98-107) Carbon Dioxide Level 27 mmol/L (21-32) Anion Gap 10 (6-14) Blood Urea Nitrogen 46 mg/dL (7-20) Creatinine 5.2 mg/dL (0.6-1.0) Estimated GFR (Cockcroft-Gault) 8.2 Glucose Level 145 mg/dL (70-99) Calcium Level 8.0 mg/dL (8.5-10.1) Phosphorus Level 5.1 mg/dL (2.6-4.7) Albumin 2.4 g/dL (3.4-5.0) Random Vancomycin Level 23.7 mcg/mL Laboratory Tests Test 02/22/20 12:50 02/22/20 15:20 02/23/20 05:15 Sodium Level 138 mmol/L (136-145) 139 mmol/L (136-145) Potassium Level 4.7 mmol/L (3.5-5.1) 4.4 mmol/L (3.5-5.1) Chloride Level 100 mmol/L (98-107) 102 mmol/L (98-107) Carbon Dioxide Level 26 mmol/L (21-32) 27 mmol/L (21-32) Anion Gap 12 (6-14) 10 (6-14) Blood Urea Nitrogen 41 mg/dL (7-20) 46 mg/dL (7-20) Creatinine 4.6 mg/dL (0.6-1.0) 5.2 mg/dL (0.6-1.0) Estimated GFR (Cockcroft-Gault) 9.4 8.2 BUN/Creatinine Ratio 9 (6-20) Glucose Level 143 mg/dL (70-99) 145 mg/dL (70-99) Calcium Level 8.0 mg/dL (8.5-10.1) 8.0 mg/dL (8.5-10.1) Total Bilirubin 0.2 mg/dL (0.2-1.0) Aspartate Amino Transf (AST/SGOT) 27 U/L (15-37) Alanine Aminotransferase (ALT/SGPT) 16 U/L (14-59) Alkaline Phosphatase 48 U/L (46-116) Total Protein 6.4 g/dL (6.4-8.2) Albumin 2.6 g/dL (3.4-5.0) 2.4 g/dL (3.4-5.0) Albumin/Globulin Ratio 0.7 (1.0-1.7) White Blood Count 3.1 x10^3/uL (4.0-11.0) 2.9 x10^3/uL (4.0-11.0) Red Blood Count 2.91 x10^6/uL (3.50-5.40) 2.78 x10^6/uL (3.50-5.40) Hemoglobin 9.2 g/dL (12.0-15.5) 8.9 g/dL (12.0-15.5) Hematocrit 28.4 % (36.0-47.0) 27.0 % (36.0-47.0) Mean Corpuscular Volume 98 fL (79-100) 97 fL (79-100) Mean Corpuscular Hemoglobin 32 pg (25-35) 32 pg (25-35) Mean Corpuscular Hemoglobin Concent 32 g/dL (31-37) 33 g/dL (31-37) Red Cell Distribution Width 15.9 % (11.5-14.5) 16.0 % (11.5-14.5) Platelet Count 98 x10^3/uL (140-400) 101 x10^3/uL (140-400) Neutrophils (%) (Auto) 85 % (31-73) 82 % (31-73) Lymphocytes (%) (Auto) 8 % (24-48) 11 % (24-48) Monocytes (%) (Auto) 7 % (0-9) 8 % (0-9) Eosinophils (%) (Auto) 0 % (0-3) 0 % (0-3) Basophils (%) (Auto) 0 % (0-3) 0 % (0-3) Neutrophils # (Auto) 2.7 x10^3/uL (1.8-7.7) 2.4 x10^3/uL (1.8-7.7) Lymphocytes # (Auto) 0.2 x10^3/uL (1.0-4.8) 0.3 x10^3/uL (1.0-4.8) Monocytes # (Auto) 0.2 x10^3/uL (0.0-1.1) 0.2 x10^3/uL (0.0-1.1) Eosinophils # (Auto) 0.0 x10^3/uL (0.0-0.7) 0.0 x10^3/uL (0.0-0.7) Basophils # (Auto) 0.0 x10^3/uL (0.0-0.2) 0.0 x10^3/uL (0.0-0.2) Segmented Neutrophils % 81 % (35-66) Band Neutrophils % 4 % (0-9) Lymphocytes % 11 % (24-48) Monocytes % 4 % (0-10) Platelet Estimate Decreased (ADEQUATE) Polychromasia Slight Phosphorus Level 5.1 mg/dL (2.6-4.7) Random Vancomycin Level 23.7 mcg/mL Medications Current Medications Ceftriaxone Sodium (Rocephin) 1 gm 1X ONCE IVP Last administered on 02/20/20at 19:37; Start 02/20/20 at 19:30; Stop 02/20/20 at 19:31; Status DC Azithromycin 500 mg/Sodium Chloride 250 ml @ 250 mls/hr 1X ONCE IV ; Start 02/20/20 at 19:30; Stop 02/20/20 at 20:29; Status Cancel Acetaminophen (Tylenol) 1,000 mg 1X ONCE PO Last administered on 02/20/20at 19:37; Start 02/20/20 at 19:30; Stop 02/20/20 at 19:31; Status DC Azithromycin 250 ml @ 250 mls/hr 1X ONCE IV Last administered on 02/20/20at 19:37; Start 02/20/20 at 19:30; Stop 02/20/20 at 20:29; Status DC Ondansetron HCl (Zofran) 4 mg PRN Q8HRS PRN IV NAUSEA/VOMITING; Start 02/20/20 at 19:30; Stop 02/21/20 at 19:29; Status DC Iohexol (Omnipaque 350 Mg/ml) 70 ml 1X ONCE IV Last administered on 02/20/20at 22:19; Start 02/20/20 at 20:00; Stop 02/20/20 at 20:01; Status DC Info (CONTRAST GIVEN -- Rx MONITORING) 1 each PRN DAILY PRN MC SEE COMMENTS; Start 02/20/20 at 20:00; Stop 02/22/20 at 19:59; Status DC Hydralazine HCl (Apresoline Inj) 10 mg 1X ONCE IVP Last administered on 02/20/20at 20:39; Start 02/20/20 at 20:00; Stop 02/20/20 at 20:02; Status DC Multivitamins (Thera M Plus) 1 tab DAILY PO Last administered on 02/23/20at 08:42; Start 02/21/20 at 09:00 Furosemide (Lasix) 40 mg 1X ONCE IVP Last administered on 02/20/20at 20:53; Start 02/20/20 at 21:00; Stop 02/20/20 at 21:01; Status DC Methylprednisolone Sodium Succinate (SOLU-Medrol 40MG VIAL) 40 mg STK-MED ONCE .ROUTE ; Start 02/20/20 at 20:56; Stop 02/20/20 at 20:56; Status DC Methylprednisolone Sodium Succinate (SOLU-Medrol 40MG VIAL) 40 mg Q12HR IV Last administered on 02/23/20at 08:42; Start 02/21/20 at 09:00 Methylprednisolone Sodium Succinate (SOLU-Medrol 40MG VIAL) 80 mg 1X ONCE IV Last administered on 02/20/20at 21:07; Start 02/20/20 at 21:15; Stop 02/20/20 at 21:16; Status DC Lorazepam (Ativan Inj) 2 mg STK-MED ONCE .ROUTE ; Start 02/20/20 at 22:32; Stop 02/20/20 at 22:32; Status DC Norepinephrine Bitartrate 8 mg/ Dextrose 258 ml @ 13.719 mls/ hr 1X ONCE IV Last administered on 02/20/20at 23:45; Start 02/20/20 at 23:45; Stop 02/21/20 at 18:33; Status DC Lorazepam (Ativan Inj) 1 mg 1X ONCE IVP Last administered on 02/20/20at 23:45; Start 02/20/20 at 23:45; Stop 02/20/20 at 23:48; Status DC Vancomycin HCl (Vanco Per Pharmacy) 1 each PRN DAILY PRN MC SEE COMMENTS Last administered on 02/23/20at 11:25; Start 02/21/20 at 06:15 Cefepime HCl (Maxipime) 1 gm Q24H IVP Last administered on 02/23/20at 06:28; Start 02/21/20 at 06:15 Azithromycin 250 ml @ 250 mls/hr 1X ONCE IV Last administered on 02/21/20at 06:42; Start 02/21/20 at 06:30; Stop 02/21/20 at 07:29; Status DC Vancomycin HCl 1.5 gm/Sodium Chloride 500 ml @ 250 mls/hr 1X ONCE IV Last administered on 02/21/20at 13:23; Start 02/21/20 at 06:30; Stop 02/21/20 at 08:30; Status DC Vancomycin HCl (Vancomycin Random Level) 1 each 1X ONCE MC Last administered on 02/23/20at 05:00; Start 02/23/20 at 05:00; Stop 02/23/20 at 05:01; Status DC Dextrose (Dextrose 50%-Water Syringe) 25 gm 1X ONCE IV ; Start 02/21/20 at 10:45; Stop 02/21/20 at 10:57; Status DC Insulin Human Regular (HumuLIN R VIAL) 10 unit 1X ONCE IV ; Start 02/21/20 at 10:45; Stop 02/21/20 at 10:52; Status DC Loperamide HCl (Imodium) 2 mg PRN Q15MIN PRN PO DIARRHEA Last administered on 02/21/20at 21:50; Start 02/21/20 at 18:45 Lorazepam (Ativan Inj) 0.5 mg 1X ONCE IVP Last administered on 02/21/20at 21:32; Start 02/21/20 at 21:15; Stop 02/21/20 at 21:16; Status DC Amlodipine Besylate (Norvasc) 10 mg DAILY08 PO Last administered on 02/23/20at 08:42; Start 02/23/20 at 08:00 Vitamin B Complex (Folbic Tablet) 1 tab DAILY PO Last administered on 02/23/20at 08:42; Start 02/23/20 at 09:00 Heparin Sodium (Porcine) (Heparin Sodium) 5,000 unit Q8HRS SQ Last administered on 02/23/20at 06:29; Start 02/22/20 at 22:00 Acetaminophen (Tylenol) 650 mg PRN Q4HRS PRN PO MILD PAIN / TEMP > 100.3'F Last administered on 02/22/20at 21:14; Start 02/22/20 at 20:45 Amino Acids/ Glycerin/ Electrolytes 1,000 ml @ 80 mls/hr [id number] IV Last administered on 02/23/20at 10:46; Start 02/23/20 at 10:30 Vancomycin HCl 500 mg/Sodium Chloride 100 ml @ 100 mls/hr QMWF IV ; Start 02/25/20 at 16:00 Active Scripts Active Oxycodone Hcl Immed.release (Oxycodone Hcl) 5 Mg Tablet 1 Tab PO QID Vitamin D2 (Ergocalciferol (Vitamin D2)) 50,000 Unit Capsule 50,000 Unit PO WEEKLY Folbic Tablet (Cyanocobalamin/Fa/Pyridoxine) 1 Each Tablet 1 Tab PO DAILY Calcitriol 0.25 Mcg Capsule 0.25 Mcg PO DAILY Reported Sodium Bicarbonate 650 Mg Tablet 1,300 Mg PO BID Ferrous Sulfate 325 Mg Tablet 325 Mg PO TIDWMEALS Norvasc (Amlodipine Besylate) 10 Mg Tablet 10 Mg PO DAILY08 Vitals/I & O Vital Sign - Last 24 Hours 02/22/20 02/22/20 02/22/20 02/22/20 12:00 12:00 12:14 13:00 Temp 97.4 97.4 Pulse 82 87 Resp 28 26 B/P (MAP) 151/75 (100) 127/87 (100) Pulse Ox 93 97 90 O2 Delivery BiPAP/CPAP Nasal Cannula Nasal Cannula BiPAP/CPAP O2 Flow Rate 3.0 4.0 02/22/20 02/22/20 02/22/20 02/22/20 14:00 16:00 20:00 20:00 Temp 99.3 99.3 Pulse 97 87 Resp 24 30 B/P (MAP) 146/77 (100) 158/90 (112) Pulse Ox 90 90 O2 Delivery BiPAP/CPAP Nasal Cannula Nasal Cannula Nasal Cannula O2 Flow Rate 3.0 3.0 3.0 02/22/20 02/22/20 02/22/20 02/22/20 21:00 22:00 23:00 23:09 Pulse 80 78 74 Resp 28 30 22 B/P (MAP) 170/92 (118) 177/91 (119) 140/75 (96) Pulse Ox 95 91 97 96 O2 Delivery Nasal Cannula BiPAP/CPAP BiPAP/CPAP BiPAP/CPAP O2 Flow Rate 3.0 02/23/20 02/23/20 02/23/20 02/23/20 00:00 00:00 01:00 02:00 Temp 99.0 99.0 Pulse 69 69 64 Resp 22 30 30 B/P (MAP) 137/69 (91) 140/85 (103) 129/70 (89) Pulse Ox 96 93 98 O2 Delivery Bi-pap BiPAP/CPAP BiPAP/CPAP BiPAP/CPAP 02/23/20 02/23/20 02/23/20 02/23/20 02:26 03:00 04:00 04:00 Pulse 62 60 Resp 30 30 B/P (MAP) 143/68 (93) 132/70 (90) Pulse Ox 98 93 95 O2 Delivery BiPAP/CPAP BiPAP/CPAP BiPAP/CPAP Bi-pap 02/23/20 02/23/20 02/23/20 02/23/20 05:00 06:00 07:00 08:00 Temp 98.1 97.9 98.1 97.9 Pulse 77 78 78 70 Resp 22 30 18 26 B/P (MAP) 170/89 (116) 173/88 (116) 168/82 (110) 151/81 (104) Pulse Ox 93 91 96 98 O2 Delivery BiPAP/CPAP Nasal Cannula Nasal Cannula Nasal Cannula O2 Flow Rate 5.0 5.0 5.0 02/23/20 02/23/20 02/23/20 02/23/20 08:00 08:42 09:00 09:12 Pulse 78 96 Resp 29 B/P (MAP) 168/82 183/90 (121) Pulse Ox 96 93 O2 Delivery Nasal Cannula BiPAP/CPAP BiPAP/CPAP O2 Flow Rate 5.0 02/23/20 02/23/20 10:00 11:00 Pulse 68 75 Resp 25 26 B/P (MAP) 149/83 (105) 165/88 (113) Pulse Ox 97 90 O2 Delivery BiPAP/CPAP BiPAP/CPAP Intake and Output 02/22/20 02/22/20 02/23/20 14:59 22:59 06:59 Intake Total 480 ml 120 ml 240 ml Output Total 60 ml 80 ml 0 ml Balance 420 ml 40 ml 240 ml Justicifation of Admission Dx: Justifications for Admission: Justification of Admission Dx: Yes Respiratory Failure: Severe Resp Distress LICO NOBLE MD Feb 23, 2020 11:39
[2020-02-23] MEDS ORDERED: IV NORMAL SALINE 1000ML BAG 1,000 ML IV PRN ×2 (11:48)
[2020-02-23] MEDS ORDERED: DIALYSIS PATIENT. MC PRN ×2 (12:00)
[2020-02-23] MEDS ORDERED: ALBUMIN HUMAN 25% 200 ML IV PRN (12:00)
--- NOTE | 2020-02-23 12:43 | PDOC2 ---
CONSULT Date of Consult Date of Consult DATE: 02/23/20 TIME: 12:31 Reason for Consult Reason for Consult: ESRD Source Source: Chart review History of Present Illness Reason for Visit: Pt is a 69-year-old AAF with ESRD on HD MWF , presented to [facility] on 02/19 with complaints of shortness of air, feeling chills while at dialysis, and temperature of 103.2. On arrival, she had a white count of 2.8. A chest x-ray showed bilateral infiltrates, some rounded areas of density, possible metastatic or nodules in the lungs. Subsequently, underwent a CT angiography of her chest showed there were several bilateral infiltrates, greatest in the lower lobes, Initially on arrival, her blood pressure was 204/85 and did drop down into the 70s/40s. She was placed on BiPAP and was given doses of azithromycin and started on steroids. Currently, she is lying in bed , on NC - switching between Bipap and NC . No CP, No N/V. No F/C Past Medical History Cardiovascular: HTN, Other Pulmonary: Asthma, COPD, Other CENTRAL NERVOUS SYSTEM: Dementia, Other GI: GERD, GI bleed Heme/Onc: Anemia NOS, B12 deficiency, Cancer Hepatobiliary: No pertinent hx Psych: Depression Musculoskeletal: Osteoarthritis, Other Rheumatologic: Gout Infectious disease: No pertinent hx Renal/: Acute renal failure, Chronic renal failure, Other Endocrine: No pertinent hx Past Surgical History Past Surgical History: Appendectomy, Cholecystectomy, Hernia Repair, Hys terectomy, Other Family History Family History: Cancer, Hypertension, Kidney Disease, Stroke, Other Social History Social History: Parent ALCOHOL: none Drugs: None Current Medications Current Medications Current Medications Ceftriaxone Sodium (Rocephin) 1 gm 1X ONCE IVP Last administered on 02/20/20at 19:37; Start 02/20/20 at 19:30; Stop 02/20/20 at 19:31; Status DC Azithromycin 500 mg/Sodium Chloride 250 ml @ 250 mls/hr 1X ONCE IV ; Start 02/20/20 at 19:30; Stop 02/20/20 at 20:29; Status Cancel Acetaminophen (Tylenol) 1,000 mg 1X ONCE PO Last administered on 02/20/20at 19:37; Start 02/20/20 at 19:30; Stop 02/20/20 at 19:31; Status DC Azithromycin 250 ml @ 250 mls/hr 1X ONCE IV Last administered on 02/20/20at 1 9:37; Start 02/20/20 at 19:30; Stop 02/20/20 at 20:29; Status DC Ondansetron HCl (Zofran) 4 mg PRN Q8HRS PRN IV NAUSEA/VOMITING; Start 02/20/20 at 19:30; Stop 02/21/20 at 19:29; Status DC Iohexol (Omnipaque 350 Mg/ml) 70 ml 1X ONCE IV Last administered on 02/20/20at 22:19; Start 02/20/20 at 20:00; Stop 02/20/20 at 20:01; Status DC Info (CONTRAST GIVEN -- Rx MONITORING) 1 each PRN DAILY PRN MC SEE COMMENTS; Start 02/20/20 at 20:00; Stop 02/22/20 at 19:59; Status DC Hydralazine HCl (Apresoline Inj) 10 mg 1X ONCE IVP Last administered on 02/20/20at 20:39; Start 02/20/20 at 20:00; Stop 02/20/20 at 20:02; Status DC Multivitamins (Thera M Plus) 1 tab DAILY PO Last administered on 02/23/20at 08:42; Start 02/21/20 at 09:00 Furosemide (Lasix) 40 mg 1X ONCE IVP Last administered on 02/20/20at 20:53; Start 02/20/20 at 21:00; Stop 02/20/20 at 21:01; Status DC Methylprednisolone Sodium Succinate (SOLU-Medrol 40MG VIAL) 40 mg STK-MED ONCE .ROUTE ; Start 02/20/20 at 20:56; Stop 02/20/20 at 20:56; Status DC Methylprednisolone Sodium Succinate (SOLU-Medrol 40MG VIAL) 40 mg Q12HR IV Last administered on 02/23/20at 08:42; Start 02/21/20 at 09:00 Methylprednisolone Sodium Succinate (SOLU-Medrol 40MG VIAL) 80 mg 1X ONCE IV Last administered on 02/20/20at 21:07; Start 02/20/20 at 21:15; Stop 02/20/20 at 21:16; Status DC Lorazepam (Ativan Inj) 2 mg STK-MED ONCE .ROUTE ; Start 02/20/20 at 22:32; Stop 02/20/20 at 22:32; Status DC Norepinephrine Bitartrate 8 mg/ Dextrose 258 ml @ 13.719 mls/ hr 1X ONCE IV Last administered on 02/20/20at 23:45; Start 02/20/20 at 23:45; Stop 02/21/20 at 18:33; Status DC Lorazepam (Ativan Inj) 1 mg 1X ONCE IVP Last administered on 02/20/20at 23:45; Start 02/20/20 at 23:45; Stop 02/20/20 at 23:48; Status DC Vancomycin HCl (Vanco Per Pharmacy) 1 each PRN DAILY PRN MC SEE COMMENTS Last administered on 02/23/20at 11:25; Start 02/21/20 at 06:15 Cefepime HCl (Maxipime) 1 gm Q24H IVP Last administered on 02/23/20at 06:28; Start 02/21/20 at 06:15 Azithromycin 250 ml @ 250 mls/hr 1X ONCE IV Last administered on 02/21/20at 06:42; Start 02/21/20 at 06:30; Stop 02/21/20 at 07:29; Status DC Vancomycin HCl 1.5 gm/Sodium Chloride 500 ml @ 250 mls/hr 1X ONCE IV Last administered on 02/21/20at 13:23; Start 02/21/20 at 06:30; Stop 02/21/20 at 08:30; Status DC Vancomycin HCl (Vancomycin Random Level) 1 each 1X ONCE MC Last administered on 02/23/20at 05:00; Start 02/23/20 at 05:00; Stop 02/23/20 at 05:01; Status DC Dextrose (Dextrose 50%-Water Syringe) 25 gm 1X ONCE IV ; Start 02/21/20 at 10:45; Stop 02/21/20 at 10:57; Status DC Insulin Human Regular (HumuLIN R VIAL) 10 unit 1X ONCE IV ; Start 02/21/20 at 10:45; Stop 02/21/20 at 10:52; Status DC Loperamide HCl (Imodium) 2 mg PRN Q15MIN PRN PO DIARRHEA Last administered on 02/21/20at 21:50; Start 02/21/20 at 18:45 Lorazepam (Ativan Inj) 0.5 mg 1X ONCE IVP Last administered on 02/21/20at 21:32; Start 02/21/20 at 21:15; Stop 02/21/20 at 21:16; Status DC Amlodipine Besylate (Norvasc) 10 mg DAILY08 PO Last administered on 02/23/20at 08:42; Start 02/23/20 at 08:00 Vitamin B Complex (Folbic Tablet) 1 tab DAILY PO Last administered on 02/23/20at 08:42; Start 02/23/20 at 09:00 Heparin Sodium (Porcine) (Heparin Sodium) 5,000 unit Q8HRS SQ Last administered on 02/23/20at 06:29; Start 02/22/20 at 22:00 Acetaminophen (Tylenol) 650 mg PRN Q4HRS PRN PO MILD PAIN / TEMP > 100.3'F Last administered on 02/22/20at 21:14; Start 02/22/20 at 20:45 Amino Acids/ Glycerin/ Electrolytes 1,000 ml @ 80 mls/hr [id number] IV Last administered on 02/23/20at 10:46; Start 02/23/20 at 10:30 Vancomycin HCl 500 mg/Sodium Chloride 100 ml @ 100 mls/hr QMWF IV ; Start 02/25/20 at 16:00 Sodium Chloride 1,000 ml @ 1,000 mls/hr Q1H PRN IV hypotension; Start 02/23/20 at 11:48; Stop 02/23/20 at 17:47 Albumin Human 200 ml @ 200 mls/hr 1X PRN PRN IV Hypotension; Start 02/23/20 at 12:00; Stop 02/23/20 at 17:59 Sodium Chloride 1,000 ml @ 400 mls/hr Q2H30M PRN IV PATENCY; Start 02/23/20 at 11:48; Stop 02/23/20 at 23:47 Info (PHARMACY MONITORING -- do not chart) 1 each PRN DAILY PRN MC SEE COMMENT S; Start 02/23/20 at 12:00; Status UNV Info (PHARMACY MONITORING -- do not chart) 1 each PRN DAILY PRN MC SEE COMMENTS; Start 02/23/20 at 12:00 Active Scripts Active Oxycodone Hcl Immed.release (Oxycodone Hcl) 5 Mg Tablet 1 Tab PO QID Vitamin D2 (Ergocalciferol (Vitamin D2)) 50,000 Unit Capsule 50,000 Unit PO WEEKLY Folbic Tablet (Cyanocobalamin/Fa/Pyridoxine) 1 Each Tablet 1 Tab PO DAILY Calcitriol 0.25 Mcg Capsule 0.25 Mcg PO DAILY Reported Sodium Bicarbonate 650 Mg Tablet 1,300 Mg PO BID Ferrous Sulfate 325 Mg Tablet 325 Mg PO TIDWMEALS Norvasc (Amlodipine Besylate) 10 Mg Tablet 10 Mg PO DAILY08 Allergies Allergies: Coded Allergies: Penicillins (Verified Allergy, Intermediate, rash, 02/20/20) Has tolerated ceftriaxone ROS Review of System As per HPI, rest of ROS negative Physical Exam Physical Exam GENERAL: Propped up in bed, alert HEENT: normal conjunctivae, oral cavity pink, moist. NECK: Supple, no JVD. LUNGS: + crackles bases, no accessory muscle use. HEART: S1, S2. regular ABDOMEN: Obese, soft, nontender, has an umbilical hernia. EXTREMITIES: No clubbing, cyanosis or gross edema. SKIN: No rash. NEUROLOGIC: Alert and answering questions. Moves all extremities. No Harris Vital Signs Vital Signs Date Time Temp Pulse Resp B/P (MAP) Pulse Ox O2 Delivery O2 Flow Rate FiO2 02/23/20 11:37 92 BiPAP/CPAP 02/23/20 11:00 75 26 165/88 (113) 02/23/20 08:00 5.0 02/23/20 08:00 97.9 97.9 Assessment & Plan ESRD - On HD MWF since December 2017 Dialysis Today as ordered, Paulo Celis Sepsis COVID-19 Positive Panycytopenia Acute hypoxic resp failure - stable , On NC , CoVid positive CTA - severe bilateral infiltrates greatest of the lower lobes although variable involvement of the other lobes. HTN- BP at goal Chronic anemia,- SCARLET Labs Labs Laboratory Tests Test 02/21/20 22:00 02/22/20 09:20 02/22/20 12:50 02/22/20 15:20 Urine Collection Type Void Urine Color Yellow Urine Clarity Clear Urine pH 6.0 (<5.0-8.0) Urine Specific Randolph 1.025 (1.000-1.030) Urine Protein 100 mg/dL (NEG-TRACE) Urine Glucose (UA) Negative mg/dL (NEG) Urine Ketones (Stick) Negative mg/dL (NEG) Urine Blood Trace (NEG) Urine Nitrite Negative (NEG) Urine Bilirubin Negative (NEG) Urine Urobilinogen Dipstick 0.2 mg/dL (0.2 mg/dL) Urine Leukocyte Esterase Small (NEG) Urine RBC Rare /HPF (0-2) Urine WBC 5-10 /HPF (0-4) Urine Squamous Epithelial Cells Few /LPF Urine Bacteria Few /HPF (0-FEW) O2 Saturation 89 % (92-99) Arterial Blood pH 7.33 (7.35-7.45) Arterial Blood pCO2 at Patient Temp 47 mmHg (35-46) Arterial Blood pO2 at Patient Temp 71 mmHg (65-108) Arterial Blood HCO3 24 mmol/L (21-28) Arterial Blood Base Excess -2 mmol/L (-3-3) FiO2 40 Sodium Level 138 mmol/L (136-145) Potassium Level 4.7 mmol/L (3.5-5.1) Chloride Level 100 mmol/L (98-107) Carbon Dioxide Level 26 mmol/L (21-32) Anion Gap 12 (6-14) Blood Urea Nitrogen 41 mg/dL (7-20) Creatinine 4.6 mg/dL (0.6-1.0) Estimated GFR (Cockcroft-Gault) 9.4 BUN/Creatinine Ratio 9 (6-20) Glucose Level 143 mg/dL (70-99) Calcium Level 8.0 mg/dL (8.5-10.1) Total Bilirubin 0.2 mg/dL (0.2-1.0) Aspartate Amino Transf (AST/SGOT) 27 U/L (15-37) Alanine Aminotransferase (ALT/SGPT) 16 U/L (14-59) Alkaline Phosphatase 48 U/L (46-116) Total Protein 6.4 g/dL (6.4-8.2) Albumin 2.6 g/dL (3.4-5.0) Albumin/Globulin Ratio 0.7 (1.0-1.7) White Blood Count 3.1 x10^3/uL (4.0-11.0) Red Blood Count 2.91 x10^6/uL (3.50-5.40) Hemoglobin 9.2 g/dL (12.0-15.5) Hematocrit 28.4 % (36.0-47.0) Mean Corpuscular Volume 98 fL (79-100) Mean Corpuscular Hemoglobin 32 pg (25-35) Mean Corpuscular Hemoglobin Concent 32 g/dL (31-37) Red Cell Distribution Width 15.9 % (11.5-14.5) Platelet Count 98 x10^3/uL (140-400) Neutrophils (%) (Auto) 85 % (31-73) Lymphocytes (%) (Auto) 8 % (24-48) Monocytes (%) (Auto) 7 % (0-9) Eosinophils (%) (Auto) 0 % (0-3) Basophils (%) (Auto) 0 % (0-3) Neutrophils # (Auto) 2.7 x10^3/uL (1.8-7.7) Lymphocytes # (Auto) 0.2 x10^3/uL (1.0-4.8) Monocytes # (Auto) 0.2 x10^3/uL (0.0-1.1) Eosinophils # (Auto) 0.0 x10^3/uL (0.0-0.7) Basophils # (Auto) 0.0 x10^3/uL (0.0-0.2) Segmented Neutrophils % 81 % (35-66) Band Neutrophils % 4 % (0-9) Lymphocytes % 11 % (24-48) Monocytes % 4 % (0-10) Platelet Estimate Decreased (ADEQUATE) Polychromasia Slight Test 02/23/20 05:15 White Blood Count 2.9 x10^3/uL (4.0-11.0) Red Blood Count 2.78 x10^6/uL (3.50-5.40) Hemoglobin 8.9 g/dL (12.0-15.5) Hematocrit 27.0 % (36.0-47.0) Mean Corpuscular Volume 97 fL (79-100) Mean Corpuscular Hemoglobin 32 pg (25-35) Mean Corpuscular Hemoglobin Concent 33 g/dL (31-37) Red Cell Distribution Width 16.0 % (11.5-14.5) Platelet Count 101 x10^3/uL (140-400) Neutrophils (%) (Auto) 82 % (31-73) Lymphocytes (%) (Auto) 11 % (24-48) Monocytes (%) (Auto) 8 % (0-9) Eosinophils (%) (Auto) 0 % (0-3) Basophils (%) (Auto) 0 % (0-3) Neutrophils # (Auto) 2.4 x10^3/uL (1.8-7.7) Lymphocytes # (Auto) 0.3 x10^3/uL (1.0-4.8) Monocytes # (Auto) 0.2 x10^3/uL (0.0-1.1) Eosinophils # (Auto) 0.0 x10^3/uL (0.0-0.7) Basophils # (Auto) 0.0 x10^3/uL (0.0-0.2) Sodium Level 139 mmol/L (136-145) Potassium Level 4.4 mmol/L (3.5-5.1) Chloride Level 102 mmol/L (98-107) Carbon Dioxide Level 27 mmol/L (21-32) Anion Gap 10 (6-14) Blood Urea Nitrogen 46 mg/dL (7-20) Creatinine 5.2 mg/dL (0.6-1.0) Estimated GFR (Cockcroft-Gault) 8.2 Glucose Level 145 mg/dL (70-99) Calcium Level 8.0 mg/dL (8.5-10.1) Phosphorus Level 5.1 mg/dL (2.6-4.7) Albumin 2.4 g/dL (3.4-5.0) Random Vancomycin Level 23.7 mcg/mL Laboratory Tests Test 02/22/20 12:50 02/22/20 15:20 02/23/20 05:15 Sodium Level 138 mmol/L (136-145) 139 mmol/L (136-145) Potassium Level 4.7 mmol/L (3.5-5.1) 4.4 mmol/L (3.5-5.1) Chloride Level 100 mmol/L (98-107) 102 mmol/L (98-107) Carbon Dioxide Level 26 mmol/L (21-32) 27 mmol/L (21-32) Anion Gap 12 (6-14) 10 (6-14) Blood Urea Nitrogen 41 mg/dL (7-20) 46 mg/dL (7-20) Creatinine 4.6 mg/dL (0.6-1.0) 5.2 mg/dL (0.6-1.0) Estimated GFR (Cockcroft-Gault) 9.4 8.2 BUN/Creatinine Ratio 9 (6-20) Glucose Level 143 mg/dL (70-99) 145 mg/dL (70-99) Calcium Level 8.0 mg/dL (8.5-10.1) 8.0 mg/dL (8.5-10.1) Total Bilirubin 0.2 mg/dL (0.2-1.0) Aspartate Amino Transf (AST/SGOT) 27 U/L (15-37) Alanine Aminotransferase (ALT/SGPT) 16 U/L (14-59) Alkaline Phosphatase 48 U/L (46-116) Total Protein 6.4 g/dL (6.4-8.2) Albumin 2.6 g/dL (3.4-5.0) 2.4 g/dL (3.4-5.0) Albumin/Globulin Ratio 0.7 (1.0-1.7) White Blood Count 3.1 x10^3/uL (4.0-11.0) 2.9 x10^3/uL (4.0-11.0) Red Blood Count 2.91 x10^6/uL (3.50-5.40) 2.78 x10^6/uL (3.50-5.40) Hemoglobin 9.2 g/dL (12.0-15.5) 8.9 g/dL (12.0-15.5) Hematocrit 28.4 % (36.0-47.0) 27.0 % (36.0-47.0) Mean Corpuscular Volume 98 fL (79-100) 97 fL (79-100) Mean Corpuscular Hemoglobin 32 pg (25-35) 32 pg (25-35) Mean Corpuscular Hemoglobin Concent 32 g/dL (31-37) 33 g/dL (31-37) Red Cell Distribution Width 15.9 % (11.5-14.5) 16.0 % (11.5-14.5) Platelet Count 98 x10^3/uL (140-400) 101 x10^3/uL (140-400) Neutrophils (%) (Auto) 85 % (31-73) 82 % (31-73) Lymphocytes (%) (Auto) 8 % (24-48) 11 % (24-48) Monocytes (%) (Auto) 7 % (0-9) 8 % (0-9) Eosinophils (%) (Auto) 0 % (0-3) 0 % (0-3) Basophils (%) (Auto) 0 % (0-3) 0 % (0-3) Neutrophils # (Auto) 2.7 x10^3/uL (1.8-7.7) 2.4 x10^3/uL (1.8-7.7) Lymphocytes # (Auto) 0.2 x10^3/uL (1.0-4.8) 0.3 x10^3/uL (1.0-4.8) Monocytes # (Auto) 0.2 x10^3/uL (0.0-1.1) 0.2 x10^3/uL (0.0-1.1) Eosinophils # (Auto) 0.0 x10^3/uL (0.0-0.7) 0.0 x10^3/uL (0.0-0.7) Basophils # (Auto) 0.0 x10^3/uL (0.0-0.2) 0.0 x10^3/uL (0.0-0.2) Segmented Neutrophils % 81 % (35-66) Band Neutrophils % 4 % (0-9) Lymphocytes % 11 % (24-48) Monocytes % 4 % (0-10) Platelet Estimate Decreased (ADEQUATE) Polychromasia Slight Phosphorus Level 5.1 mg/dL (2.6-4.7) Random Vancomycin Level 23.7 mcg/mL Review All relevant outside records, renal labs, imaging studies, telemetry/EKG's were reviewed. Images Images CTA on 02/19 Impression: 1. There are severe bilateral infiltrates greatest of the lower lobes although variable involvement of the other lobes. 2. There is coronary calcification. 3. Main pulmonary artery dilatation suggests pulmonary hypertension. MAIRA PATIÑO MD Feb 23, 2020 12:43
--- NOTE | 2020-02-23 14:14 | NUR ---
SS following for discharge planning. SS reviewed pt chart and discussed with pt RN. Pt is from home and is currently on BIPAP. Pt on IV Cefapime, IV Vancomycin, and PPN. Pt COVID19 positive. Pt had outpatient dialysis at [facility], ; fax [phone], Sunday, Sunday, and Sunday. Pt will need to change clinics to [facility] due to COVID19 positive. SS will continue to follow for discharge planning.
[2020-02-23] MEDS ORDERED: NON FORMULARY ITEM 1 EA in IV NORMAL SALINE 250ML 210 ML IV ONE (16:00)
[2020-02-23] MEDS: ONDANSETRON PF 4 MG/2 ML VIAL. IVP PRN (18:41)
[2020-02-23] MEDS: LACTOBACILLUS RHAMNOSUS GG 1 CAPSULE. PO SCH (21:49)
[2020-02-23] MEDS: ACETAMINOPHEN 325 MG TABLET. PO PRN (21:49)
[2020-02-23] MEDS: DARBEPOETIN ALFA 60 MCG/0.3 ML DISP.SYRIN. SQ SCH (21:52)
[2020-02-24] VITALS (21 sets, daily range): BP systolic 116–173; BP diastolic 62–92
[2020-02-24] MEDS: AMINO AC 3%/ELECTROLYTE/GLYCER 1,000 ML IV SCH ×2 (01:42→11:40)
[2020-02-24] MEDS: HEPARIN for SUB-Q USE 5,000 UNIT/ML VIAL. SQ SCH ×3 (06:00→22:46)
[2020-02-24] MEDS: CEFEPIME HCL IV Push 1 GM VIAL. IVP SCH (06:15)
--- NOTE | 2020-02-24 08:08 | PDOC ---
Infectious Disease Note Subjective Subjective Feeling better Less work of breathing O2 at 4.5L No fevers/chills last 24 hrs Denies aches/N/V ROS ROS No nausea vomiting diarrhea no fever Vital Sign Vital Signs Vital Signs Date Time Temp Pulse Resp B/P (MAP) Pulse Ox O2 Delivery O2 Flow Rate FiO2 02/24/20 03:00 70 14 152/84 (106) 98 BiPAP/CPAP 02/24/20 00:00 97.2 97.2 02/23/20 08:00 5.0 Physical Exam PHYSICAL EXAM GENERAL: Propped up in bed, alert and eating HEENT: normal conjunctivae, oral cavity pink, moist. No thrush. . NECK: Supple, no JVD. LUNGS: + crackles bases, no accessory muscle use. HEART: S1, S2. regular ABDOMEN: Obese, soft, nontender, no guarding. She has an umbilical hernia. EXTREMITIES: No clubbing, cyanosis or gross edema. SKIN: Warm to touch without signs of rash. NEUROLOGIC: Alert and answering questions. Moves all extremities. PIV ok Labs Lab Laboratory Tests Test 02/23/20 21:10 D-Dimer (Rafaela) 1.73 ug/mlFEU (0.00-0.50) Objective Assessment Fever - better Pancytopenia. PENICILLIN ALLERGY. Acute hypoxic respiratory failure, off BiPAP; now on 4.5L Congestive heart failure. Plan Plan of Care Steroids Discontinue vancomycin Today's labs still pending f/u UC Airborne isolation till COVID resulted D/w nursing CLINTON MONTANO MD Feb 24, 2020 08:07
--- NOTE | 2020-02-24 08:24 | NUR ---
see paper chart for 0600 medications
[2020-02-24] MEDS: LACTOBACILLUS RHAMNOSUS GG 1 CAPSULE. PO SCH ×2 (08:27→20:43)
[2020-02-24] MEDS: methylPREDNISolone SOD SUCC PF 40 MG/ML VIAL. IV SCH ×2 (08:27→20:43)
[2020-02-24] MEDS: MULTIVITAMIN with MINERAL TABLET. PO SCH (08:27)
[2020-02-24] MEDS: VITAMIN B12,B9,B6 COMPLEX 1 TABLET. PO SCH (08:27)
[2020-02-24] MEDS: amLODIPine BESYLATE 10 MG TABLET PO SCH (08:27)
[2020-02-24] MEDS: NON FORMULARY ITEM 1 EA in IV NORMAL SALINE 250ML 230 ML IV SCH (08:28)
[2020-02-24 08:53] LABS: BASE EXCESS ABG 4 mmol/L (-3-3); HCO3 ABG 28 mmol/L (21-28); PCO2 ABG 41 mmHg (35-46); PO2 ABG 52 mmHg (65-108); SAT O2 ABG 84 % (92-99)
--- NOTE | 2020-02-24 09:10 | PDOC ---
PULMONARY PROGRESS NOTES Subjective Patient awake on BiPAP not more short of air Vitals Vital Signs Date Time Temp Pulse Resp B/P (MAP) Pulse Ox O2 Delivery O2 Flow Rate FiO2 02/24/20 08:27 68 143/75 02/24/20 03:00 14 98 BiPAP/CPAP 02/24/20 00:00 97.2 97.2 02/23/20 08:00 5.0 ROS: No Nausea, No Chest Pain, No Abdominal Pain, No Increase Cough General: Alert HEENT: Other Lungs: Clear Cardiovascular: S1, S2 Abdomen: Soft Neuro Exam: Alert Extremities: No Edema Skin: Warm, No Rashes Labs Laboratory Tests Test 02/22/20 09:20 02/22/20 12:50 02/22/20 15:20 02/23/20 05:15 O2 Saturation 89 % (92-99) Arterial Blood pH 7.33 (7.35-7.45) Arterial Blood pCO2 at Patient Temp 47 mmHg (35-46) Arterial Blood pO2 at Patient Temp 71 mmHg (65-108) Arterial Blood HCO3 24 mmol/L (21-28) Arterial Blood Base Excess -2 mmol/L (-3-3) FiO2 40 Sodium Level 138 mmol/L (136-145) 139 mmol/L (136-145) Potassium Level 4.7 mmol/L (3.5-5.1) 4.4 mmol/L (3.5-5.1) Chloride Level 100 mmol/L (98-107) 102 mmol/L (98-107) Carbon Dioxide Level 26 mmol/L (21-32) 27 mmol/L (21-32) Anion Gap 12 (6-14) 10 (6-14) Blood Urea Nitrogen 41 mg/dL (7-20) 46 mg/dL (7-20) Creatinine 4.6 mg/dL (0.6-1.0) 5.2 mg/dL (0.6-1.0) Estimated GFR (Cockcroft-Gault) 9.4 8.2 BUN/Creatinine Ratio 9 (6-20) Glucose Level 143 mg/dL (70-99) 145 mg/dL (70-99) Calcium Level 8.0 mg/dL (8.5-10.1) 8.0 mg/dL (8.5-10.1) Total Bilirubin 0.2 mg/dL (0.2-1.0) Aspartate Amino Transf (AST/SGOT) 27 U/L (15-37) Alanine Aminotransferase (ALT/SGPT) 16 U/L (14-59) Alkaline Phosphatase 48 U/L (46-116) Total Protein 6.4 g/dL (6.4-8.2) Albumin 2.6 g/dL (3.4-5.0) 2.4 g/dL (3.4-5.0) Albumin/Globulin Ratio 0.7 (1.0-1.7) White Blood Count 3.1 x10^3/uL (4.0-11.0) 2.9 x10^3/uL (4.0-11.0) Red Blood Count 2.91 x10^6/uL (3.50-5.40) 2.78 x10^6/uL (3.50-5.40) Hemoglobin 9.2 g/dL (12.0-15.5) 8.9 g/dL (12.0-15.5) Hematocrit 28.4 % (36.0-47.0) 27.0 % (36.0-47.0) Mean Corpuscular Volume 98 fL (79-100) 97 fL (79-100) Mean Corpuscular Hemoglobin 32 pg (25-35) 32 pg (25-35) Mean Corpuscular Hemoglobin Concent 32 g/dL (31-37) 33 g/dL (31-37) Red Cell Distribution Width 15.9 % (11.5-14.5) 16.0 % (11.5-14.5) Platelet Count 98 x10^3/uL (140-400) 101 x10^3/uL (140-400) Neutrophils (%) (Auto) 85 % (31-73) 82 % (31-73) Lymphocytes (%) (Auto) 8 % (24-48) 11 % (24-48) Monocytes (%) (Auto) 7 % (0-9) 8 % (0-9) Eosinophils (%) (Auto) 0 % (0-3) 0 % (0-3) Basophils (%) (Auto) 0 % (0-3) 0 % (0-3) Neutrophils # (Auto) 2.7 x10^3/uL (1.8-7.7) 2.4 x10^3/uL (1.8-7.7) Lymphocytes # (Auto) 0.2 x10^3/uL (1.0-4.8) 0.3 x10^3/uL (1.0-4.8) Monocytes # (Auto) 0.2 x10^3/uL (0.0-1.1) 0.2 x10^3/uL (0.0-1.1) Eosinophils # (Auto) 0.0 x10^3/uL (0.0-0.7) 0.0 x10^3/uL (0.0-0.7) Basophils # (Auto) 0.0 x10^3/uL (0.0-0.2) 0.0 x10^3/uL (0.0-0.2) Segmented Neutrophils % 81 % (35-66) Band Neutrophils % 4 % (0-9) Lymphocytes % 11 % (24-48) Monocytes % 4 % (0-10) Platelet Estimate Decreased (ADEQUATE) Polychromasia Slight Phosphorus Level 5.1 mg/dL (2.6-4.7) C-Reactive Protein, Quantitative 32.5 mg/L (0-3.3) Random Vancomycin Level 23.7 mcg/mL Test 02/23/20 21:10 D-Dimer (Rafaela) 1.73 ug/mlFEU (0.00-0.50) Laboratory Tests Test 02/23/20 21:10 D-Dimer (Rafaela) 1.73 ug/mlFEU (0.00-0.50) Medications Active Scripts Medications Dose Route/Sig Max Daily Dose Days Date Category Oxycodone Hcl Immed.release (Oxycodone Hcl) 5 Mg Tablet 1 Tab PO QID 04/15/18 Rx Sodium Bicarbonate 650 Mg Tablet 1,300 Mg PO BID 06/10/17 Reported Ferrous Sulfate 325 Mg Tablet 325 Mg PO TIDWMEALS 06/10/17 Reported Vitamin D2 (Ergocalciferol (Vitamin D2)) 50,000 Unit Capsule 50,000 Unit PO WEEKLY 12/07/16 Rx Folbic Tablet (Cyanocobalamin/Fa/Pyridoxine) 1 Each Tablet 1 Tab PO DAILY 12/07/16 Rx Calcitriol 0.25 Mcg Capsule 0.25 Mcg PO DAILY 12/07/16 Rx Norvasc (Amlodipine Besylate) 10 Mg Tablet 10 Mg PO DAILY08 09/04/13 Reported Comments cta reviewed 1. There are severe bilateral infiltrates greatest of the lower lobes although variable involvement of the other lobes. 2. There is coronary calcification. 3. Main pulmonary artery dilatation suggests pulmonary hypertension. no central pe Impression . IMPRESSION: 1. Acute hypoxemic respiratory failure secondary COVID-19 viral pneumonia 2. Abnormal chest x-ray. 3. Febrile illness. 4. Pancytopenia. 5. Acute diastolic congestive heart failure. 6. End-stage renal disease, on hemodialysis. 7. SARS-CoV-[address] chest Impression: 1. There are severe bilateral infiltrates greatest of the lower lobes although variable involvement of the other lobes. 2. There is coronary calcification. 3. Main pulmonary artery dilatation suggests pulmonary hypertension. Plan . Continue BiPAP n Steroids And hemodialysis per nephrology Follow cultures Initiate Remdisivir 02/22, spoke with pharmacy and RN DVT GI prophylaxis Total cumulative critical care time of 30 minutes, reviewing data, labs, chest x-ray, and formulating a plan. LYRIC SMART MD Feb 24, 2020 09:10
[2020-02-24 09:17] LABS: FIO2 ABG 35%
--- NOTE | 2020-02-24 09:42 | PDOC ---
SUBJECTIVE ROS Stable OBJECTIVE Vital Signs Vital Signs Date Time Temp Pulse Resp B/P (MAP) Pulse Ox O2 Delivery O2 Flow Rate FiO2 02/24/20 08:27 68 143/75 02/24/20 03:00 14 98 BiPAP/CPAP 02/24/20 00:00 97.2 97.2 02/23/20 08:00 5.0 I & 0 Intake and Output 02/24/20 06:59 Intake Total 1830 ml Output Total 80 ml Balance 1750 ml Intake Oral 820 ml IV Total 1010 ml Output Urine Total 80 ml PHYSICAL EXAM Physical Exam GENERAL: alert, on Bipap HEENT: OM moist. NECK: Supple, no JVD. LUNGS: + crackles bases, no accessory muscle use. HEART: S1, S2. regular ABDOMEN: Obese, soft, nontender, has an umbilical hernia. EXTREMITIES: No clubbing, cyanosis or gross edema. SKIN: No rash. NEUROLOGIC: Alert and answering questions. Moves all extremities. No Harris DIAGNOSIS/ASSESSMENT Assessment & Plan ESRD - On HD MWF since December 2017 No indication for HD today Sepsis COVID-19 Positive Panycytopenia Acute hypoxic resp failure - stable , On NC , CoVid positive CTA - severe bilateral infiltrates greatest of the lower lobes HTN- BP at goal Chronic anemia,- SCARLET COMMENT/RELEVANT DATA Meds Current Medications Medications (Trade) Dose Ordered Sig/Rebecca Start Time Stop Time Status Last Admin Dose Admin Acetaminophen (Tylenol) 650 mg PRN Q4HRS PRN 02/22/20 20:45 02/23/20 21:49 650 MG Albumin Human 200 ml @ 200 mls/hr 1X PRN PRN 02/23/20 12:00 02/23/20 17:59 DC Amino Acids/ Glycerin/ Electrolytes 1,000 ml @ 80 mls/hr [id number] 02/23/20 10:30 02/24/20 01:42 80 MLS/HR Amlodipine Besylate (Norvasc) 10 mg DAILY08 02/23/20 08:00 02/24/20 08:27 10 MG Azithromycin 250 ml @ 250 mls/hr 1X ONCE 02/21/20 06:30 02/21/20 07:29 DC 02/21/20 06:42 250 MLS/HR Azithromycin 500 mg/Sodium Chloride 250 ml @ 250 mls/hr 1X ONCE 7/10/20 19:30 02/20/20 20:29 Cancel Cefepime HCl (Maxipime) 1 gm Q24H 02/21/20 06:15 02/23/20 06:28 1 GM Ceftriaxone Sodium (Rocephin) 1 gm 1X ONCE 02/20/20 19:30 02/20/20 19:31 DC 02/20/20 19:37 1 GM Darbepoetin Jono (ARANESP for DIALYSIS PTS) 60 mcg WEEKLYHS 02/23/20 21:00 02/23/20 21:52 60 MCG Dextrose (Dextrose 50%-Water Syringe) 25 gm 1X ONCE 02/21/20 10:45 02/21/20 10:57 DC Furosemide (Lasix) 40 mg 1X ONCE 02/20/20 21:00 02/20/20 21:01 DC 02/20/20 20:53 40 MG Heparin Sodium (Porcine) (Heparin Sodium) 5,000 unit Q8HRS 02/22/20 22:00 02/23/20 21:50 5,000 UNIT Hydralazine HCl (Apresoline Inj) 10 mg 1X ONCE 02/20/20 20:00 02/20/20 20:02 DC 02/20/20 20:39 10 MG Info (CONTRAST GIVEN -- Rx MONITORING) 1 each PRN DAILY PRN 02/20/20 20:00 02/22/20 19:59 DC Info (PHARMACY MONITORING -- do not chart) 1 each PRN DAILY PRN 02/23/20 12:00 Insulin Human Regular (HumuLIN R VIAL) 10 unit 1X ONCE 02/21/20 10:45 02/21/20 10:52 DC Iohexol (Omnipaque 350 Mg/ml) 70 ml 1X ONCE 02/20/20 20:00 02/20/20 20:01 DC 02/20/20 22:19 70 ML Lactobacillus Rhamnosus (Culturelle) 1 cap BID 02/23/20 21:00 02/24/20 08:27 1 CAP Loperamide HCl (Imodium) 2 mg PRN Q15MIN PRN 02/21/20 18:45 02/21/20 21:50 2 MG Lorazepam (Ativan Inj) 0.5 mg 1X ONCE 02/21/20 21:15 02/21/20 21:16 DC 02/21/20 21:32 0.5 MG Methylprednisolone Sodium Succinate (SOLU-Medrol 40MG VIAL) 80 mg 1X ONCE 02/20/20 21:15 02/20/20 21:16 DC 02/20/20 21:07 80 MG Multivitamins (Thera M Plus) 1 tab DAILY 02/21/20 09:00 02/24/20 08:27 1 TAB Non-Formulary Medication 1 ea/ Sodium Chloride 230 ml @ 460 mls/hr DAILY 02/24/20 09:00 02/27/20 09:29 02/24/20 08:28 460 MLS/HR Norepinephrine Bitartrate 8 mg/ Dextrose 258 ml @ 13.719 mls/ hr 1X ONCE 02/20/20 23:45 02/21/20 18:33 DC 02/20/20 23:45 13.1 MLS/HR Ondansetron HCl (Zofran) 4 mg PRN Q6HRS PRN 02/23/20 18:45 02/23/20 18:41 4 MG Sodium Chloride 1,000 ml @ 400 mls/hr Q2H30M PRN 02/23/20 11:48 02/23/20 23:47 DC Vancomycin HCl (Vanco Per Pharmacy) 1 each PRN DAILY PRN 02/21/20 06:15 02/23/20 11:25 1 EACH Vancomycin HCl (Vancomycin Random Level) 1 each 1X ONCE 02/23/20 05:00 02/23/20 05:01 DC 02/23/20 05:00 1 EACH Vancomycin HCl 1.5 gm/Sodium Chloride 500 ml @ 250 mls/hr 1X ONCE 02/21/20 06:30 02/21/20 08:30 DC 02/21/20 13:23 250 MLS/HR Vancomycin HCl 500 mg/Sodium Chloride 100 ml @ 100 mls/hr QMWF 02/25/20 16:00 Vitamin B Complex (Folbic Tablet) 1 tab DAILY 02/23/20 09:00 02/24/20 08:27 1 TAB Lab Laboratory Tests Test 02/23/20 21:10 02/24/20 08:42 D-Dimer (Rafaela) 1.73 ug/mlFEU (0.00-0.50) O2 Saturation 84 % (92-99) Arterial Blood pH 7.45 (7.35-7.45) Arterial Blood pCO2 at Patient Temp 41 mmHg (35-46) Arterial Blood pO2 at Patient Temp 52 mmHg (65-108) Arterial Blood HCO3 28 mmol/L (21-28) Arterial Blood Base Excess 4 mmol/L (-3-3) FiO2 35% Results All relevant outside records, renal labs, imaging studies, telemetry/EKG's were reviewed. Justicifation of Admission Dx: Justifications for Admission: Justification of Admission Dx: Yes Respiratory Failure: Severe Resp Distress MAIRA PATIÑO MD Feb 24, 2020 09:42
[2020-02-24] MEDS: VANCOMYCIN PER PHARMACY MC PRN (11:27)
[2020-02-24] MEDS: LOPERAMIDE 2 MG CAPSULE PO PRN ×4 (11:40→20:43)
--- NOTE | 2020-02-24 12:27 | NUR ---
SS following up with discharge planning. SS reviewed pt chart and discussed with pt RN. Pt is currently on BIPAP, PPN, and IV Cefepime. Pt COVID19 positive. SS will continue to follow for discharge planning.
--- NOTE | 2020-02-24 14:01 | PDOC ---
PROGRESS NOTES Chief Complaint Chief Complaint A/P: Sepsis - concern for bilateral pneumonia vs COVID 19 COVID-19SARS COV2+ Panycytopenia Acute hypoxic resp failure - on Bipap CKD onHD Acute CHF Elevated troponin HTN urgency Severe protein calorie malnutrition History of Present Illness History of Present Illness Ms Murillo is a 69yo F ESRD on HD, anemia who presented to [facility] on 02/[facility] with complaints of shortness of air, feeling chills while at dialysis. Noted in ED with a temperature of 103.2. On arrival, she had a white count of 2.8. A chest x-ray was obtained. She had bilateral infiltrates, some rounded areas of density, possible metastatic or nodules in the lungs. Subsequently, underwent a CT angiography of her chest showed there were several bilateral infiltrates, greatest in the lower lobes, although variable involvement of the other lobes and she had pulmonary hypertension. ABG 7.25/59/64, and she had been placed on BiPAP and was given doses of azithromycin and Rocephin as well as steroids. Currently, she is lying in bed. She is feeling more comfortable. She is on BiPAP. She has had a dry cough and a little bit of diarrhea. 02/21: Repeat ABG 02/12/51/63 after hours on BIPAP 18/8 with FIO2 40%. Significant for albumin 3.1 BUN 10 CR 2.3 BNP 61526 WBC 2.8, Hb 9.8, platelets 61 lactate 1.3 troponin 0.113. Overall, speaking through BiPAP mask she states she feels better. Asking for food. Plan: COVID 19 positive Cont ICU care. vapotherm/bipap continue remdesevir steroids abx CC time 38 minutes Vitals Vitals Vital Signs Date Time Temp Pulse Resp B/P (MAP) Pulse Ox O2 Delivery O2 Flow Rate FiO2 02/24/20 13:00 98 33 116/62 (80) 84 Nasal Cannula 5.0 02/24/20 12:00 98.4 98.4 Physical Exam Physical Exam GENERAL: Propped up in bed, alert and eating HEENT: normal conjunctivae, oral cavity pink, moist. No thrush. . NECK: Supple, no JVD. LUNGS: + crackles bases, no accessory muscle use. HEART: S1, S2. regular ABDOMEN: Obese, soft, nontender, no guarding. She has an umbilical hernia. EXTREMITIES: No clubbing, cyanosis or gross edema. SKIN: Warm to touch without signs of rash. NEUROLOGIC: Alert and answering questions. Moves all extremities. PIV ok General: Alert, Cooperative, moderate distress Heart: Regular rate, Normal S1, Normal S2 Lungs: Clear Abdomen: Normal bowel sounds, Soft Extremities: No clubbing, No cyanosis Skin: No rashes, No breakdown Labs LABS Laboratory Tests Test 02/23/20 21:10 02/24/20 08:42 D-Dimer (Rafaela) 1.73 ug/mlFEU (0.00-0.50) O2 Saturation 84 % (92-99) Arterial Blood pH 7.45 (7.35-7.45) Arterial Blood pCO2 at Patient Temp 41 mmHg (35-46) Arterial Blood pO2 at Patient Temp 52 mmHg (65-108) Arterial Blood HCO3 28 mmol/L (21-28) Arterial Blood Base Excess 4 mmol/L (-3-3) FiO2 35% Comment Review of Relevant I have reviewed the following items yoel (where applicable) has been applied. Labs Laboratory Tests Test 02/22/20 15:20 02/23/20 05:15 02/23/20 21:10 02/24/20 08:42 White Blood Count 3.1 x10^3/uL (4.0-11.0) 2.9 x10^3/uL (4.0-11.0) Red Blood Count 2.91 x10^6/uL (3.50-5.40) 2.78 x10^6/uL (3.50-5.40) Hemoglobin 9.2 g/dL (12.0-15.5) 8.9 g/dL (12.0-15.5) Hematocrit 28.4 % (36.0-47.0) 27.0 % (36.0-47.0) Mean Corpuscular Volume 98 fL (79-100) 97 fL (79-100) Mean Corpuscular Hemoglobin 32 pg (25-35) 32 pg (25-35) Mean Corpuscular Hemoglobin Concent 32 g/dL (31-37) 33 g/dL (31-37) Red Cell Distribution Width 15.9 % (11.5-14.5) 16.0 % (11.5-14.5) Platelet Count 98 x10^3/uL (140-400) 101 x10^3/uL (140-400) Neutrophils (%) (Auto) 85 % (31-73) 82 % (31-73) Lymphocytes (%) (Auto) 8 % (24-48) 11 % (24-48) Monocytes (%) (Auto) 7 % (0-9) 8 % (0-9) Eosinophils (%) (Auto) 0 % (0-3) 0 % (0-3) Basophils (%) (Auto) 0 % (0-3) 0 % (0-3) Neutrophils # (Auto) 2.7 x10^3/uL (1.8-7.7) 2.4 x10^3/uL (1.8-7.7) Lymphocytes # (Auto) 0.2 x10^3/uL (1.0-4.8) 0.3 x10^3/uL (1.0-4.8) Monocytes # (Auto) 0.2 x10^3/uL (0.0-1.1) 0.2 x10^3/uL (0.0-1.1) Eosinophils # (Auto) 0.0 x10^3/uL (0.0-0.7) 0.0 x10^3/uL (0.0-0.7) Basophils # (Auto) 0.0 x10^3/uL (0.0-0.2) 0.0 x10^3/uL (0.0-0.2) Segmented Neutrophils % 81 % (35-66) Band Neutrophils % 4 % (0-9) Lymphocytes % 11 % (24-48) Monocytes % 4 % (0-10) Platelet Estimate Decreased (ADEQUATE) Polychromasia Slight Sodium Level 139 mmol/L (136-145) Potassium Level 4.4 mmol/L (3.5-5.1) Chloride Level 102 mmol/L (98-107) Carbon Dioxide Level 27 mmol/L (21-32) Anion Gap 10 (6-14) Blood Urea Nitrogen 46 mg/dL (7-20) Creatinine 5.2 mg/dL (0.6-1.0) Estimated GFR (Cockcroft-Gault) 8.2 Glucose Level 145 mg/dL (70-99) Calcium Level 8.0 mg/dL (8.5-10.1) Phosphorus Level 5.1 mg/dL (2.6-4.7) C-Reactive Protein, Quantitative 32.5 mg/L (0-3.3) Albumin 2.4 g/dL (3.4-5.0) Random Vancomycin Level 23.7 mcg/mL D-Dimer (Rafaela) 1.73 ug/mlFEU (0.00-0.50) O2 Saturation 84 % (92-99) Arterial Blood pH 7.45 (7.35-7.45) Arterial Blood pCO2 at Patient Temp 41 mmHg (35-46) Arterial Blood pO2 at Patient Temp 52 mmHg (65-108) Arterial Blood HCO3 28 mmol/L (21-28) Arterial Blood Base Excess 4 mmol/L (-3-3) FiO2 35% Laboratory Tests Test 02/23/20 21:10 02/24/20 08:42 D-Dimer (Rafaela) 1.73 ug/mlFEU (0.00-0.50) O2 Saturation 84 % (92-99) Arterial Blood pH 7.45 (7.35-7.45) Arterial Blood pCO2 at Patient Temp 41 mmHg (35-46) Arterial Blood pO2 at Patient Temp 52 mmHg (65-108) Arterial Blood HCO3 28 mmol/L (21-28) Arterial Blood Base Excess 4 mmol/L (-3-3) FiO2 35% Medications Current Medications Ceftriaxone Sodium (Rocephin) 1 gm 1X ONCE IVP Last administered on 02/20/20at 19:37; Start 02/20/20 at 19:30; Stop 02/20/20 at 19:31; Status DC Azithromycin 500 mg/Sodium Chloride 250 ml @ 250 mls/hr 1X ONCE IV ; Start 02/20/20 at 19:30; Stop 02/20/20 at 20:29; Status Cancel Acetaminophen (Tylenol) 1,000 mg 1X ONCE PO Last administered on 02/20/20at 19:37; Start 02/20/20 at 19:30; Stop 02/20/20 at 19:31; Status DC Azithromycin 250 ml @ 250 mls/hr 1X ONCE IV Last administered on 02/20/20at 19:37; Start 02/20/20 at 19:30; Stop 02/20/20 at 20:29; Status DC Ondansetron HCl (Zofran) 4 mg PRN Q8HRS PRN IV NAUSEA/VOMITING; Start 02/20/20 at 19:30; Stop 02/21/20 at 19:29; Status DC Iohexol (Omnipaque 350 Mg/ml) 70 ml 1X ONCE IV Last administered on 02/20/20at 22:19; Start 02/20/20 at 20:00; Stop 02/20/20 at 20:01; Status DC Info (CONTRAST GIVEN -- Rx MONITORING) 1 each PRN DAILY PRN MC SEE COMMENTS; Start 02/20/20 at 20:00; Stop 02/22/20 at 19:59; Status DC Hydralazine HCl (Apresoline Inj) 10 mg 1X ONCE IVP Last administered on 02/20/20at 20:39; Start 02/20/20 at 20:00; Stop 02/20/20 at 20:02; Status DC Multivitamins (Thera M Plus) 1 tab DAILY PO Last administered on 02/24/20at 08:27; Start 02/21/20 at 09:00 Furosemide (Lasix) 40 mg 1X ONCE IVP Last administered on 02/20/20at 20:53; Start 02/20/20 at 21:00; Stop 02/20/20 at 21:01; Status DC Methylprednisolone Sodium Succinate (SOLU-Medrol 40MG VIAL) 40 mg STK-MED ONCE .ROUTE ; Start 02/20/20 at 20:56; Stop 02/20/20 at 20:56; Status DC Methylprednisolone Sodium Succinate (SOLU-Medrol 40MG VIAL) 40 mg Q12HR IV Last administered on 02/24/20at 08:27; Start 02/21/20 at 09:00 Methylprednisolone Sodium Succinate (SOLU-Medrol 40MG VIAL) 80 mg 1X ONCE IV Last administered on 02/20/20at 21:07; Start 02/20/20 at 21:15; Stop 02/20/20 at 21:16; Status DC Lorazepam (Ativan Inj) 2 mg STK-MED ONCE .ROUTE ; Start 02/20/20 at 22:32; Stop 02/20/20 at 22:32; Status DC Norepinephrine Bitartrate 8 mg/ Dextrose 258 ml @ 13.719 mls/ hr 1X ONCE IV Last administered on 02/20/20at 23:45; Start 02/20/20 at 23:45; Stop 02/21/20 at 18:33; Status DC Lorazepam (Ativan Inj) 1 mg 1X ONCE IVP Last administered on 02/20/20at 23:45; Start 02/20/20 at 23:45; Stop 02/20/20 at 23:48; Status DC Vancomycin HCl (Vanco Per Pharmacy) 1 each PRN DAILY PRN MC SEE COMMENTS Last administered on 02/24/20at 11:27; Start 02/21/20 at 06:15; Stop 02/24/20 at 11:42; Status DC Cefepime HCl (Maxipime) 1 gm Q24H IVP Last administered on 02/23/20at 06:28; Start 02/21/20 at 06:15 Azithromycin 250 ml @ 250 mls/hr 1X ONCE IV Last administered on 02/21/20at 06:42; Start 02/21/20 at 06:30; Stop 02/21/20 at 07:29; Status DC Vancomycin HCl 1.5 gm/Sodium Chloride 500 ml @ 250 mls/hr 1X ONCE IV Last administered on 02/21/20at 13:23; Start 02/21/20 at 06:30; Stop 02/21/20 at 08:30; Status DC Vancomycin HCl (Vancomycin Random Level) 1 each 1X ONCE MC Last administered on 02/23/20at 05:00; Start 02/23/20 at 05:00; Stop 02/23/20 at 05:01; Status DC Dextrose (Dextrose 50%-Water Syringe) 25 gm 1X ONCE IV ; Start 02/21/20 at 10:45; Stop 02/21/20 at 10:57; Status DC Insulin Human Regular (HumuLIN R VIAL) 10 unit 1X ONCE IV ; Start 02/21/20 at 10:45; Stop 02/21/20 at 10:52; Status DC Loperamide HCl (Imodium) 2 mg PRN Q15MIN PRN PO DIARRHEA Last administered on 02/24/20at 13:16; Start 02/21/20 at 18:45 Lorazepam (Ativan Inj) 0.5 mg 1X ONCE IVP Last administered on 02/21/20at 21:32; Start 02/21/20 at 21:15; Stop 02/21/20 at 21:16; Status DC Amlodipine Besylate (Norvasc) 10 mg DAILY08 PO Last administered on 02/24/20at 08:27; Start 02/23/20 at 08:00 Vitamin B Complex (Folbic Tablet) 1 tab DAILY PO Last administered on 02/24/20at 08:27; Start 02/23/20 at 09:00 Heparin Sodium (Porcine) (Heparin Sodium) 5,000 unit Q8HRS SQ Last administered on 02/23/20at 21:50; Start 02/22/20 at 22:00 Acetaminophen (Tylenol) 650 mg PRN Q4HRS PRN PO MILD PAIN / TEMP > 100.3'F Last administered on 02/23/20at 21:49; Start 02/22/20 at 20:45 Amino Acids/ Glycerin/ Electrolytes 1,000 ml @ 80 mls/hr [id number] IV Last administered on 02/24/20at 11:40; Start 02/23/20 at 10:30 Vancomycin HCl 500 mg/Sodium Chloride 100 ml @ 100 mls/hr QMWF IV ; Start 02/25/20 at 16:00; Stop 02/24/20 at 11:42; Status DC Sodium Chloride 1,000 ml @ 1,000 mls/hr Q1H PRN IV hypotension; Start 02/23/20 at 11:48; Stop 02/23/20 at 17:47; Status DC Albumin Human 200 ml @ 200 mls/hr 1X PRN PRN IV Hypotension; Start 02/23/20 at 12:00; Stop 02/23/20 at 17:59; Status DC Sodium Chloride 1,000 ml @ 400 mls/hr Q2H30M PRN IV PATENCY; Start 02/23/20 at 11:48; Stop 02/23/20 at 23:47; Status DC Info (PHARMACY MONITORING -- do not chart) 1 each PRN DAILY PRN MC SEE COMMENTS; Start 02/23/20 at 12:00; Status UNV Info (PHARMACY MONITORING -- do not chart) 1 each PRN DAILY PRN MC SEE COMMENTS; Start 02/23/20 at 12:00 Darbepoetin Jono (ARANESP for DIALYSIS PTS) 60 mcg WEEKLYHS SQ Last administered on 02/23/20at 21:52; Start 02/23/20 at 21:00 Lactobacillus Rhamnosus (Culturelle) 1 cap BID PO Last administered on 02/24/20at 08:27; Start 02/23/20 at 21:00 Non-Formulary Medication 1 ea/ Sodium Chloride 210 ml @ 210 mls/hr 1X ONCE IV Last administered on 02/23/20at 20:51; Start 02/23/20 at 16:00; Stop 02/23/20 at 16:59; Status DC Non-Formulary Medication 1 ea/ Sodium Chloride 230 ml @ 460 mls/hr DAILY IV Last administered on 02/24/20at 08:28; Start 02/24/20 at 09:00; Stop 02/27/20 at 09:29 Ondansetron HCl (Zofran) 4 mg PRN Q6HRS PRN IVP NAUSEA/VOMITING Last administered on 02/23/20at 18:41; Start 02/23/20 at 18:45 Active Scripts Active Oxycodone Hcl Immed.release (Oxycodone Hcl) 5 Mg Tablet 1 Tab PO QID Vitamin D2 (Ergocalciferol (Vitamin D2)) 50,000 Unit Capsule 50,000 Unit PO WEEKLY Folbic Tablet (Cyanocobalamin/Fa/Pyridoxine) 1 Each Tablet 1 Tab PO DAILY Calcitriol 0.25 Mcg Capsule 0.25 Mcg PO DAILY Reported Sodium Bicarbonate 650 Mg Tablet 1,300 Mg PO BID Ferrous Sulfate 325 Mg Tablet 325 Mg PO TIDWMEALS Norvasc (Amlodipine Besylate) 10 Mg Tablet 10 Mg PO DAILY08 Vitals/I & O Vital Sign - Last 24 Hours 02/23/20 02/23/20 02/23/20 02/23/20 14:00 15:00 15:24 16:00 Pulse 84 80 Resp 24 25 B/P (MAP) 136/70 (92) 141/76 (97) Pulse Ox 91 91 91 O2 Delivery BiPAP/CPAP BiPAP/CPAP BiPAP/CPAP Bi-pap 02/23/20 02/23/20 02/23/20 02/23/20 16:00 17:00 18:00 18:01 Temp 98.2 98.2 Pulse 76 77 79 Resp 24 24 24 B/P (MAP) 142/76 (98) 151/81 (104) 146/78 (100) Pulse Ox 92 92 89 91 O2 Delivery BiPAP/CPAP BiPAP/CPAP BiPAP/CPAP BiPAP/CPAP 02/23/20 02/23/20 02/23/20 02/23/20 19:00 19:30 19:40 20:00 Temp 98.7 98.7 Pulse 72 75 Resp 26 20 B/P (MAP) 117/67 (84) 135/67 (89) Pulse Ox 88 98 95 97 O2 Delivery BiPAP/CPAP BiPAP/CPAP 02/23/20 02/23/20 02/23/20 02/23/20 20:00 20:05 21:00 22:00 Pulse 77 76 Resp 23 B/P (MAP) 123/69 (87) 125/70 (88) Pulse Ox 92 88 90 O2 Delivery Bi-pap BiPAP/CPAP BiPAP/CPAP BiPAP/CPAP 02/23/20 02/24/20 02/24/20 02/24/20 23:00 00:00 00:00 01:00 Temp 97.2 97.2 Pulse 78 72 75 Resp 23 33 B/P (MAP) 152/77 (102) 117/67 (84) 150/82 (104) Pulse Ox 90 92 100 O2 Delivery BiPAP/CPAP BiPAP/CPAP Bi-pap BiPAP/CPAP 02/24/20 02/24/20 02/24/20 02/24/20 02:00 03:00 07:00 07:30 Pulse 69 70 66 Resp 19 14 27 B/P (MAP) 137/70 (92) 152/84 (106) 135/74 (94) Pulse Ox 100 98 93 96 O2 Delivery BiPAP/CPAP BiPAP/CPAP BiPAP/CPAP BiPAP/CPAP 02/24/20 02/24/20 02/24/20 02/24/20 08:00 08:00 08:00 08:27 Temp 98.0 98.0 Pulse 68 68 Resp 23 B/P (MAP) 143/75 (97) 143/75 Pulse Ox 91 O2 Delivery BiPAP/CPAP Bi-pap O2 Flow Rate 5.0 5.0 02/24/20 02/24/20 02/24/20 02/24/20 09:00 10:00 11:00 11:15 Pulse 82 74 86 Resp 30 24 37 B/P (MAP) 139/72 (94) 173/92 (119) 133/66 (88) Pulse Ox 85 84 93 96 O2 Delivery Nasal Cannula BiPAP/CPAP BiPAP/CPAP BiPAP/CPAP O2 Flow Rate 5.0 02/24/20 02/24/20 02/24/20 12:00 12:00 13:00 Temp 98.4 98.4 Pulse 74 98 Resp 23 33 B/P (MAP) 126/68 (87) 116/62 (80) Pulse Ox 91 84 O2 Delivery Bi-pap BiPAP/CPAP Nasal Cannula O2 Flow Rate 5.0 5.0 Intake and Output 02/23/20 02/23/20 02/24/20 15:00 23:00 07:00 Intake Total 360 ml 100 ml 1370 ml Output Total 80 ml 0 ml Balance 280 ml 100 ml 1370 ml Justicifation of Admission Dx: Justifications for Admission: Justification of Admission Dx: Yes Respiratory Failure: Severe Resp Distress ELINA HENDRICKSON MD Feb 24, 2020 14:01
[2020-02-24] MEDS: ONDANSETRON PF 4 MG/2 ML VIAL. IVP PRN (16:15)
[2020-02-24] MEDS: ACETAMINOPHEN 325 MG TABLET. PO PRN (18:50)
[2020-02-25] VITALS (22 sets, daily range): BP systolic 110–157; BP diastolic 60–85
[2020-02-25] MEDS: AMINO AC 3%/ELECTROLYTE/GLYCER 1,000 ML IV SCH ×2 (05:40→12:30)
[2020-02-25] MEDS: CEFEPIME HCL IV Push 1 GM VIAL. IVP SCH (05:41)
[2020-02-25] MEDS: HEPARIN for SUB-Q USE 5,000 UNIT/ML VIAL. SQ SCH ×3 (05:42→23:09)
--- NOTE | 2020-02-25 06:20 | NUR ---
Lab calls with critical potassium of 8.1 (was 4.4 02/22), and sodium of 119, (was 139 /), possible of draw from area of Procalamine infusion, requested to redraw, Procalamine stopped for the draw. monitoring.
--- NOTE | 2020-02-25 07:46 | PDOC ---
Infectious Disease Note Subjective Subjective Feeling better Less work of breathing ROS ROS No fevers/chills last 24 hrs Denies aches/N/V Vital Sign Vital Signs Vital Signs Date Time Temp Pulse Resp B/P (MAP) Pulse Ox O2 Delivery O2 Flow Rate FiO2 02/25/20 05:57 98.5 62 25 132/70 (90) 94 BiPAP/CPAP 98.5 02/24/20 13:00 5.0 Physical Exam PHYSICAL EXAM GENERAL: Propped up in bed, alert HEENT: normal conjunctivae, oral cavity pink, moist. No thrush. . NECK: Supple, no JVD. LUNGS: + crackles bases, no accessory muscle use. HEART: S1, S2. regular ABDOMEN: Obese, soft, nontender, no guarding. She has an umbilical hernia. EXTREMITIES: No clubbing, cyanosis or gross edema. SKIN: Warm to touch without signs of rash. NEUROLOGIC: Alert and answering questions. Moves all extremities. PIV ok Labs Lab Laboratory Tests Test 02/24/20 08:42 O2 Saturation 84 % (92-99) Arterial Blood pH 7.45 (7.35-7.45) Arterial Blood pCO2 at Patient Temp 41 mmHg (35-46) Arterial Blood pO2 at Patient Temp 52 mmHg (65-108) Arterial Blood HCO3 28 mmol/L (21-28) Arterial Blood Base Excess 4 mmol/L (-3-3) FiO2 35% Objective Assessment Fever - better Pancytopenia. PENICILLIN ALLERGY. Acute hypoxic respiratory failure, off BiPAP; now on 4.5L Congestive heart failure. COVID 19 Plan Plan of Care Steroids cefepime Airborne isolation D/w nursing CLINTON MONTANO MD Feb 25, 2020 07:46
[2020-02-25 08:38] LABS: BASE EXCESS ABG 0 mmol/L (-3-3); HCO3 ABG 24 mmol/L (21-28); PCO2 ABG 36 mmHg (35-46); PO2 ABG 66 mmHg (65-108); SAT O2 ABG 89 % (92-99)
[2020-02-25 08:44] LABS: FIO2 ABG 40
[2020-02-25] MEDS: LACTOBACILLUS RHAMNOSUS GG 1 CAPSULE. PO SCH ×2 (09:08→23:08)
[2020-02-25] MEDS: LOPERAMIDE 2 MG CAPSULE PO PRN ×2 (09:08→23:15)
[2020-02-25] MEDS: MULTIVITAMIN with MINERAL TABLET. PO SCH (09:08)
[2020-02-25] MEDS: VITAMIN B12,B9,B6 COMPLEX 1 TABLET. PO SCH (09:08)
[2020-02-25] MEDS: amLODIPine BESYLATE 10 MG TABLET PO SCH (09:10)
[2020-02-25] MEDS: NON FORMULARY ITEM 1 EA in IV NORMAL SALINE 250ML 230 ML IV SCH (09:10)
[2020-02-25 09:11] LABS: CALCIUM 8.4 mg/dL (8.5-10.1); CREATININE 4.2 mg/dL (0.6-1.0); GFR 10.5
[2020-02-25] MEDS: methylPREDNISolone SOD SUCC PF 40 MG/ML VIAL. IV SCH (09:13)
[2020-02-25 09:14] LABS: POTASSIUM 5.6 mmol/L (3.5-5.1)
--- NOTE | 2020-02-25 09:24 | PDOC ---
PULMONARY PROGRESS NOTES Subjective Patient off of BiPAP, nasal cannula oxygen, no chest pain no pressure no increasing shortness of breath tolerating a diet Vitals Vital Signs Date Time Temp Pulse Resp B/P (MAP) Pulse Ox O2 Delivery O2 Flow Rate FiO2 02/25/20 09:10 71 125/69 02/25/20 08:34 92 BiPAP/CPAP 02/25/20 05:57 98.5 25 98.5 02/24/20 13:00 5.0 ROS: No Nausea, No Chest Pain, No Abdominal Pain, No Increase Cough General: Alert HEENT: Other Lungs: Clear Cardiovascular: S1, S2 Abdomen: Soft Neuro Exam: Alert Extremities: No Edema Skin: Warm, No Rashes Labs Laboratory Tests Test 02/23/20 21:10 02/24/20 08:42 02/25/20 08:00 02/25/20 08:35 D-Dimer (Rafaela) 1.73 ug/mlFEU (0.00-0.50) O2 Saturation 84 % (92-99) 89 % (92-99) Arterial Blood pH 7.45 (7.35-7.45) 7.45 (7.35-7.45) Arterial Blood pCO2 at Patient Temp 41 mmHg (35-46) 36 mmHg (35-46) Arterial Blood pO2 at Patient Temp 52 mmHg (65-108) 66 mmHg (65-108) Arterial Blood HCO3 28 mmol/L (21-28) 24 mmol/L (21-28) Arterial Blood Base Excess 4 mmol/L (-3-3) 0 mmol/L (-3-3) FiO2 35% 40 Sodium Level 132 mmol/L (136-145) Potassium Level 5.6 mmol/L (3.5-5.1) Chloride Level 97 mmol/L (98-107) Carbon Dioxide Level 25 mmol/L (21-32) Anion Gap 10 (6-14) Blood Urea Nitrogen 68 mg/dL (7-20) Creatinine 4.2 mg/dL (0.6-1.0) Estimated GFR (Cockcroft-Gault) 10.5 Glucose Level 121 mg/dL (70-99) Calcium Level 8.4 mg/dL (8.5-10.1) Laboratory Tests Test 02/25/20 08:00 02/25/20 08:35 O2 Saturation 89 % (92-99) Arterial Blood pH 7.45 (7.35-7.45) Arterial Blood pCO2 at Patient Temp 36 mmHg (35-46) Arterial Blood pO2 at Patient Temp 66 mmHg (65-108) Arterial Blood HCO3 24 mmol/L (21-28) Arterial Blood Base Excess 0 mmol/L (-3-3) FiO2 40 Sodium Level 132 mmol/L (136-145) Potassium Level 5.6 mmol/L (3.5-5.1) Chloride Level 97 mmol/L (98-107) Carbon Dioxide Level 25 mmol/L (21-32) Anion Gap 10 (6-14) Blood Urea Nitrogen 68 mg/dL (7-20) Creatinine 4.2 mg/dL (0.6-1.0) Estimated GFR (Cockcroft-Gault) 10.5 Glucose Level 121 mg/dL (70-99) Calcium Level 8.4 mg/dL (8.5-10.1) Medications Active Scripts Medications Dose Route/Sig Max Daily Dose Days Date Category Oxycodone Hcl Immed.release (Oxycodone Hcl) 5 Mg Tablet 1 Tab PO QID 04/15/18 Rx Sodium Bicarbonate 650 Mg Tablet 1,300 Mg PO BID 06/10/17 Reported Ferrous Sulfate 325 Mg Tablet 325 Mg PO TIDWMEALS 06/10/17 Reported Vitamin D2 (Ergocalciferol (Vitamin D2)) 50,000 Unit Capsule 50,000 Unit PO WEEKLY 12/07/16 Rx Folbic Tablet (Cyanocobalamin/Fa/Pyridoxine) 1 Each Tablet 1 Tab PO DAILY 12/07/16 Rx Calcitriol 0.25 Mcg Capsule 0.25 Mcg PO DAILY 12/07/16 Rx Norvasc (Amlodipine Besylate) 10 Mg Tablet 10 Mg PO DAILY08 09/04/13 Reported Comments cta reviewed 1. There are severe bilateral infiltrates greatest of the lower lobes although variable involvement of the other lobes. 2. There is coronary calcification. 3. Main pulmonary artery dilatation suggests pulmonary hypertension. no central pe Impression . IMPRESSION: 1. Acute hypoxemic respiratory failure secondary COVID-19 viral pneumonia 2. Abnormal chest x-ray. 3. Febrile illness. 4. Pancytopenia. 5. Acute diastolic congestive heart failure. 6. End-stage renal disease, on hemodialysis. 7. SARS-CoV-[address] chest Impression: 1. There are severe bilateral infiltrates greatest of the lower lobes although variable involvement of the other lobes. 2. There is coronary calcification. 3. Main pulmonary artery dilatation suggests pulmonary hypertension. Plan . Better today, up to chair, PRN BiPAP, Steroids And hemodialysis per nephrology Follow cultures Initiate Remdisivir 02/22, spoke with pharmacy and RN DVT GI prophylaxis Total cumulative critical care time of 30 minutes, reviewing data, labs, chest x-ray, and formulating a plan. LYRIC SMART MD Feb 25, 2020 09:24
--- NOTE | 2020-02-25 10:29 | PDOC ---
SUBJECTIVE ROS Feeling better,No fevers/chills OBJECTIVE Vital Signs Vital Signs Date Time Temp Pulse Resp B/P (MAP) Pulse Ox O2 Delivery O2 Flow Rate FiO2 02/25/20 09:10 71 125/69 02/25/20 08:34 92 BiPAP/CPAP 02/25/20 05:57 98.5 25 98.5 02/24/20 13:00 5.0 I & 0 Intake and Output 02/25/20 07:00 Intake Total 3050 ml Output Total 150 ml Balance 2900 ml Intake Oral 820 ml IV Total 2230 ml Output Urine Total 150 ml # Voids 4 # Bowel Movements 4 PHYSICAL EXAM Physical Exam GENERAL: alert,NAD HEENT: OM moist. NECK: Supple, no JVD. LUNGS: , no accessory muscle use. HEART: S1, S2. regular ABDOMEN: Obese, soft, nontender, has an umbilical hernia. EXTREMITIES: No clubbing, cyanosis or gross edema. SKIN: No rash. NEUROLOGIC: Alert and answering questions. Moves all extremities. No Harris DIAGNOSIS/ASSESSMENT Assessment & Plan ESRD - On HD MWF since December 2017 Dialysis today, treatment plan dw [facility] Sepsis Panycytopenia Acute hypoxic resp failure - stable , On NC CTA - severe bilateral infiltrates greatest of the lower lobes COVID-19 Positive Initiated on Remdisivir 02/22, HTN- BP at goal Chronic anemia,- SCARLET Pt evaluated during Global Covid19 Pandemic COMMENT/RELEVANT DATA Meds Current Medications Medications (Trade) Dose Ordered Sig/Rebecca Start Time Stop Time Status Last Admin Dose Admin Acetaminophen (Tylenol) 650 mg PRN Q4HRS PRN 02/22/20 20:45 02/24/20 18:50 650 MG Albumin Human 200 ml @ 200 mls/hr 1X PRN PRN 02/23/20 12:00 02/23/20 17:59 DC Amino Acids/ Glycerin/ Electrolytes 1,000 ml @ 80 mls/hr [id number] 02/23/20 10:30 02/25/20 05:40 80 MLS/HR Amlodipine Besylate (Norvasc) 10 mg DAILY08 02/23/20 08:00 02/25/20 09:10 10 MG Azithromycin 250 ml @ 250 mls/hr 1X ONCE 02/21/20 06:30 02/21/20 07:29 DC 02/21/20 06:42 250 MLS/HR Azithromycin 500 mg/Sodium Chloride 250 ml @ 250 mls/hr 1X ONCE 02/20/20 19:30 02/20/20 20:29 Cancel Cefepime HCl (Maxipime) 1 gm Q24H 02/21/20 06:15 02/25/20 05:41 1 GM Ceftriaxone Sodium (Rocephin) 1 gm 1X ONCE 02/20/20 19:30 02/20/20 19:31 DC 02/20/20 19:37 1 GM Darbepoetin Jono (ARANESP for DIALYSIS PTS) 60 mcg WEEKLYHS 02/23/20 21:00 02/23/20 21:52 60 MCG Dextrose (Dextrose 50%-Water Syringe) 25 gm 1X ONCE 02/21/20 10:45 02/21/20 10:57 DC Furosemide (Lasix) 40 mg 1X ONCE 02/20/20 21:00 02/20/20 21:01 DC 02/20/20 20:53 40 MG Heparin Sodium (Porcine) (Heparin Sodium) 5,000 unit Q8HRS 02/22/20 22:00 02/25/20 05:42 5,000 UNIT Hydralazine HCl (Apresoline Inj) 10 mg 1X ONCE 02/20/20 20:00 02/20/20 20:02 DC 02/20/20 20:39 10 MG Info (CONTRAST GIVEN -- Rx MONITORING) 1 each PRN DAILY PRN 02/20/20 20:00 02/22/20 19:59 DC Info (PHARMACY MONITORING -- do not chart) 1 each PRN DAILY PRN 02/23/20 12:00 Insulin Human Regular (HumuLIN R VIAL) 10 unit 1X ONCE 02/21/20 10:45 02/21/20 10:52 DC Iohexol (Omnipaque 350 Mg/ml) 70 ml 1X ONCE 02/20/20 20:00 02/20/20 20:01 DC 02/20/20 22:19 70 ML Lactobacillus Rhamnosus (Culturelle) 1 cap BID 02/23/20 21:00 02/25/20 09:08 1 CAP Loperamide HCl (Imodium) 2 mg PRN Q15MIN PRN 02/21/20 18:45 02/25/20 09:08 2 MG Lorazepam (Ativan Inj) 0.5 mg 1X ONCE 02/21/20 21:15 02/21/20 21:16 DC 02/21/20 21:32 0.5 MG Methylprednisolone Sodium Succinate (SOLU-Medrol 40MG VIAL) 80 mg 1X ONCE 02/20/20 21:15 02/20/20 21:16 DC 02/20/20 21:07 80 MG Multivitamins (Thera M Plus) 1 tab DAILY 02/21/20 09:00 02/25/20 09:08 1 TAB Non-Formulary Medication 1 ea/ Sodium Chloride 230 ml @ 460 mls/hr DAILY 02/24/20 09:00 02/27/20 09:29 02/25/20 09:10 460 MLS/HR Norepinephrine Bitartrate 8 mg/ Dextrose 258 ml @ 13.719 mls/ hr 1X ONCE 02/20/20 23:45 02/21/20 18:33 DC 02/20/20 23:45 13.1 MLS/HR Ondansetron HCl (Zofran) 4 mg PRN Q6HRS PRN 02/23/20 18:45 02/24/20 16:15 4 MG Sodium Chloride 1,000 ml @ 400 mls/hr Q2H30M PRN 02/23/20 11:48 02/23/20 23:47 DC Vancomycin HCl (Vanco Per Pharmacy) 1 each PRN DAILY PRN 02/21/20 06:15 02/24/20 11:42 DC 02/24/20 11:27 1 EACH Vancomycin HCl (Vancomycin Random Level) 1 each 1X ONCE 02/23/20 05:00 02/23/20 05:01 DC 02/23/20 05:00 1 EACH Vancomycin HCl 1.5 gm/Sodium Chloride 500 ml @ 250 mls/hr 1X ONCE 02/21/20 06:30 02/21/20 08:30 DC 02/21/20 13:23 250 MLS/HR Vancomycin HCl 500 mg/Sodium Chloride 100 ml @ 100 mls/hr QMWF 02/25/20 16:00 02/24/20 11:42 DC Vitamin B Complex (Folbic Tablet) 1 tab DAILY 02/23/20 09:00 02/25/20 09:08 1 TAB Lab Laboratory Tests Test 02/25/20 08:00 02/25/20 08:35 O2 Saturation 89 % (92-99) Arterial Blood pH 7.45 (7.35-7.45) Arterial Blood pCO2 at Patient Temp 36 mmHg (35-46) Arterial Blood pO2 at Patient Temp 66 mmHg (65-108) Arterial Blood HCO3 24 mmol/L (21-28) Arterial Blood Base Excess 0 mmol/L (-3-3) FiO2 40 D-Dimer (Rafaela) 1.71 ug/mlFEU (0.00-0.50) Sodium Level 132 mmol/L (136-145) Potassium Level 5.6 mmol/L (3.5-5.1) Chloride Level 97 mmol/L (98-107) Carbon Dioxide Level 25 mmol/L (21-32) Anion Gap 10 (6-14) Blood Urea Nitrogen 68 mg/dL (7-20) Creatinine 4.2 mg/dL (0.6-1.0) Estimated GFR (Cockcroft-Gault) 10.5 Glucose Level 121 mg/dL (70-99) Calcium Level 8.4 mg/dL (8.5-10.1) Results All relevant outside records, renal labs, imaging studies, telemetry/EKG's were reviewed. Justicifation of Admission Dx: Justifications for Admission: Justification of Admission Dx: Yes Respiratory Failure: Severe Resp Distress MAIRA PATIÑO MD Feb 25, 2020 10:29
[2020-02-25] MEDS ORDERED: IV NORMAL SALINE 1000ML BAG 1,000 ML IV PRN ×2 (13:37)
[2020-02-25] MEDS ORDERED: DIALYSIS PATIENT. MC PRN ×2 (13:45)
[2020-02-25] MEDS ORDERED: ALBUMIN HUMAN 25% 200 ML IV PRN (13:45)
--- NOTE | 2020-02-25 14:11 | NUR ---
IV infiltrate after redraw by lab. Infusing briefly then observed site. IV dc'd . Unsuccessful attempt to restart. Anesthesia start last Sunday.Call placed w effort to come after "case load diminished". Imodium [rior to each meal w slowing of stools successful. No BMs after B or L 02/24. Off BiPaP 2 H w desat 80-88.Returned to BiPaP prior to meal then back on after eating lunch. Scheduled Sun dialysis started @ 1422.
--- NOTE | 2020-02-25 14:50 | NUR ---
SS following up with discharge planning. SS reviewed pt chart and discussed with pt RN. Pt now on nasal canula oxygen. Pt uses BIPAP on and off per RN. Pt on PPN. Pt COVID19 positive and on IV Cefepime. Mirian from [facility] notified SS that pt's outpatient [facility] due to [facility]. SS will continue to follow for discharge planning.
[2020-02-25] MEDS ORDERED: VANCOMYCIN 500 MG in IV NORMAL SALINE 100ML 100 ML IV SCH (16:00)
--- NOTE | 2020-02-25 17:02 | PDOC ---
PROGRESS NOTES Chief Complaint Chief Complaint A/P: Sepsis - concern for bilateral pneumonia vs COVID 19 COVID-19SARS COV2+ Panycytopenia Acute hypoxic resp failure - on Bipap CKD onHD Acute CHF Elevated troponin HTN urgency Severe protein calorie malnutrition History of Present Illness History of Present Illness Ms Murillo is a 69yo F ESRD on HD, anemia who presented to [facility] on 02/19 with complaints of shortness of air, feeling chills while at dialysis. Noted in ED with a temperature of 103.2. On arrival, she had a white count of 2.8. A chest x-ray was obtained. She had bilateral infiltrates, some rounded areas of density, possible metastatic or nodules in the lungs. Subsequently, underwent a CT angiography of her chest showed there were several bilateral infiltrates, greatest in the lower lobes, although variable involvement of the other lobes and she had pulmonary hypertension. ABG 7./59/64, and she had been placed on BiPAP and was given doses of azithromycin and Rocephin as well as steroids. Currently, she is lying in bed. She is feeling more comfortable. She is on BiPAP. She has had a dry cough and a little bit of diarrhea. 02/21: Repeat ABG 02/12/51/63 after hours on BIPAP 18/8 with FIO2 40%. Significant for albumin 3.1 BUN 10 CR 2.3 BNP 18671 WBC 2.8, Hb 9.8, platelets 61 lactate 1.3 troponin 0.113. Overall, speaking through BiPAP mask she states she feels better. Asking for food. Plan: COVID 19 positive Cont ICU care. wean 02 as tolerated. seems comfortable off bipap now continue remdesevir steroids abx CC time 38 minutes Vitals Vitals Vital Signs Date Time Temp Pulse Resp B/P (MAP) Pulse Ox O2 Delivery O2 Flow Rate FiO2 02/25/20 16:00 85 30 119/67 (84) BiPAP/CPAP 02/25/20 16:00 5.0 02/25/20 15:36 95 02/25/20 12:00 98.0 98.0 Physical Exam Physical Exam GENERAL: Propped up in bed, alert HEENT: normal conjunctivae, oral cavity pink, moist. No thrush. . NECK: Supple, no JVD. LUNGS: + crackles bases, no accessory muscle use. HEART: S1, S2. regular ABDOMEN: Obese, soft, nontender, no guarding. She has an umbilical hernia. EXTREMITIES: No clubbing, cyanosis or gross edema. SKIN: Warm to touch without signs of rash. NEUROLOGIC: Alert and answering questions. Moves all extremities. PIV ok General: Alert, Cooperative, moderate distress Heart: Regular rate, Normal S1, Normal S2 Lungs: Clear Abdomen: Normal bowel sounds, Soft Extremities: No clubbing, No cyanosis Skin: No rashes, No breakdown Labs LABS Laboratory Tests Test 02/25/20 08:00 02/25/20 08:35 O2 Saturation 89 % (92-99) Arterial Blood pH 7.45 (7.35-7.45) Arterial Blood pCO2 at Patient Temp 36 mmHg (35-46) Arterial Blood pO2 at Patient Temp 66 mmHg (65-108) Arterial Blood HCO3 24 mmol/L (21-28) Arterial Blood Base Excess 0 mmol/L (-3-3) FiO2 40 D-Dimer (Rafaela) 1.71 ug/mlFEU (0.00-0.50) Sodium Level 132 mmol/L (136-145) Potassium Level 5.6 mmol/L (3.5-5.1) Chloride Level 97 mmol/L (98-107) Carbon Dioxide Level 25 mmol/L (21-32) Anion Gap 10 (6-14) Blood Urea Nitrogen 68 mg/dL (7-20) Creatinine 4.2 mg/dL (0.6-1.0) Estimated GFR (Cockcroft-Gault) 10.5 Glucose Level 121 mg/dL (70-99) Calcium Level 8.4 mg/dL (8.5-10.1) Comment Review of Relevant I have reviewed the following items yoel (where applicable) has been applied. Labs Laboratory Tests Test 02/23/20 21:10 02/24/20 08:42 02/25/20 08:00 02/25/20 08:35 D-Dimer (Rafaela) 1.73 ug/mlFEU (0.00-0.50) 1.71 ug/mlFEU (0.00-0.50) O2 Saturation 84 % (92-99) 89 % (92-99) Arterial Blood pH 7.45 (7.35-7.45) 7.45 (7.35-7.45) Arterial Blood pCO2 at Patient Temp 41 mmHg (35-46) 36 mmHg (35-46) Arterial Blood pO2 at Patient Temp 52 mmHg (65-108) 66 mmHg (65-108) Arterial Blood HCO3 28 mmol/L (21-28) 24 mmol/L (21-28) Arterial Blood Base Excess 4 mmol/L (-3-3) 0 mmol/L (-3-3) FiO2 35% 40 Sodium Level 132 mmol/L (136-145) Potassium Level 5.6 mmol/L (3.5-5.1) Chloride Level 97 mmol/L (98-107) Carbon Dioxide Level 25 mmol/L (21-32) Anion Gap 10 (6-14) Blood Urea Nitrogen 68 mg/dL (7-20) Creatinine 4.2 mg/dL (0.6-1.0) Estimated GFR (Cockcroft-Gault) 10.5 Glucose Level 121 mg/dL (70-99) Calcium Level 8.4 mg/dL (8.5-10.1) Laboratory Tests Test 02/25/20 08:00 02/25/20 08:35 O2 Saturation 89 % (92-99) Arterial Blood pH 7.45 (7.35-7.45) Arterial Blood pCO2 at Patient Temp 36 mmHg (35-46) Arterial Blood pO2 at Patient Temp 66 mmHg (65-108) Arterial Blood HCO3 24 mmol/L (21-28) Arterial Blood Base Excess 0 mmol/L (-3-3) FiO2 40 D-Dimer (Rafaela) 1.71 ug/mlFEU (0.00-0.50) Sodium Level 132 mmol/L (136-145) Potassium Level 5.6 mmol/L (3.5-5.1) Chloride Level 97 mmol/L (98-107) Carbon Dioxide Level 25 mmol/L (21-32) Anion Gap 10 (6-14) Blood Urea Nitrogen 68 mg/dL (7-20) Creatinine 4.2 mg/dL (0.6-1.0) Estimated GFR (Cockcroft-Gault) 10.5 Glucose Level 121 mg/dL (70-99) Calcium Level 8.4 mg/dL (8.5-10.1) Medications Current Medications Ceftriaxone Sodium (Rocephin) 1 gm 1X ONCE IVP Last administered on 02/20/20at 19:37; Start 02/20/20 at 19:30; Stop 02/20/20 at 19:31; Status DC Azithromycin 500 mg/Sodium Chloride 250 ml @ 250 mls/hr 1X ONCE IV ; Start 02/20/20 at 19:30; Stop 02/20/20 at 20:29; Status Cancel Acetaminophen (Tylenol) 1,000 mg 1X ONCE PO Last administered on 02/20/20at 19:37; Start 02/20/20 at 19:30; Stop 02/20/20 at 19:31; Status DC Azithromycin 250 ml @ 250 mls/hr 1X ONCE IV Last administered on 02/20/20at 19:37; Start 02/20/20 at 19:30; Stop 02/20/20 at 20:29; Status DC Ondansetron HCl (Zofran) 4 mg PRN Q8HRS PRN IV NAUSEA/VOMITING; Start 02/20/20 at 19:30; Stop 02/21/20 at 19:29; Status DC Iohexol (Omnipaque 350 Mg/ml) 70 ml 1X ONCE IV Last administered on 02/20/20at 22:19; Start 02/20/20 at 20:00; Stop 02/20/20 at 20:01; Status DC Info (CONTRAST GIVEN -- Rx MONITORING) 1 each PRN DAILY PRN MC SEE COMMENTS; Start 02/20/20 at 20:00; Stop 02/22/20 at 19:59; Status DC Hydralazine HCl (Apresoline Inj) 10 mg 1X ONCE IVP Last administered on 02/20/20at 20:39; Start 02/20/20 at 20:00; Stop 02/20/20 at 20:02; Status DC Multivitamins (Thera M Plus) 1 tab DAILY PO Last administered on 02/25/20at 09:08; Start 02/21/20 at 09:00 Furosemide (Lasix) 40 mg 1X ONCE IVP Last administered on 02/20/20at 20:53; Start 02/20/20 at 21:00; Stop 02/20/20 at 21:01; Status DC Methylprednisolone Sodium Succinate (SOLU-Medrol 40MG VIAL) 40 mg STK-MED ONCE .ROUTE ; Start 02/20/20 at 20:56; Stop 02/20/20 at 20:56; Status DC Methylprednisolone Sodium Succinate (SOLU-Medrol 40MG VIAL) 40 mg Q12HR IV Last administered on 02/25/20at 09:13; Start 02/21/20 at 09:00 Methylprednisolone Sodium Succinate (SOLU-Medrol 40MG VIAL) 80 mg 1X ONCE IV Last administered on 02/20/20at 21:07; Start 02/20/20 at 21:15; Stop 02/20/20 at 21:16; Status DC Lorazepam (Ativan Inj) 2 mg STK-MED ONCE .ROUTE ; Start 02/20/20 at 22:32; Stop 02/20/20 at 22:32; Status DC Norepinephrine Bitartrate 8 mg/ Dextrose 258 ml @ 13.719 mls/ hr 1X ONCE IV Last administered on 02/20/20at 23:45; Start 02/20/20 at 23:45; Stop 02/21/20 at 18:33; Status DC Lorazepam (Ativan Inj) 1 mg 1X ONCE IVP Last administered on 02/20/20at 23:45; Start 02/20/20 at 23:45; Stop 02/20/20 at 23:48; Status DC Vancomycin HCl (Vanco Per Pharmacy) 1 each PRN DAILY PRN MC SEE COMMENTS Last administered on 02/24/20at 11:27; Start 02/21/20 at 06:15; Stop 02/24/20 at 11:42; Status DC Cefepime HCl (Maxipime) 1 gm Q24H IVP Last administered on 02/25/20at 05:41; Start 02/21/20 at 06:15 Azithromycin 250 ml @ 250 mls/hr 1X ONCE IV Last administered on 02/21/20at 06:42; Start 02/21/20 at 06:30; Stop 02/21/20 at 07:29; Status DC Vancomycin HCl 1.5 gm/Sodium Chloride 500 ml @ 250 mls/hr 1X ONCE IV Last administered on 02/21/20at 13:23; Start 02/21/20 at 06:30; Stop 02/21/20 at 08:30; Status DC Vancomycin HCl (Vancomycin Random Level) 1 each 1X ONCE MC Last administered on 02/23/20at 05:00; Start 02/23/20 at 05:00; Stop 02/23/20 at 05:01; Status DC Dextrose (Dextrose 50%-Water Syringe) 25 gm 1X ONCE IV ; Start 02/21/20 at 10:45; Stop 02/21/20 at 10:57; Status DC Insulin Human Regular (HumuLIN R VIAL) 10 unit 1X ONCE IV ; Start 02/21/20 at 10:45; Stop 02/21/20 at 10:52; Status DC Loperamide HCl (Imodium) 2 mg PRN Q15MIN PRN PO DIARRHEA Last administered on 02/25/20at 09:08; Start 02/21/20 at 18:45 Lorazepam (Ativan Inj) 0.5 mg 1X ONCE IVP Last administered on 02/21/20at 21:32; Start 02/21/20 at 21:15; Stop 02/21/20 at 21:16; Status DC Amlodipine Besylate (Norvasc) 10 mg DAILY08 PO Last administered on 02/25/20at 09:10; Start 02/23/20 at 08:00 Vitamin B Complex (Folbic Tablet) 1 tab DAILY PO Last administered on 02/25/20at 09:08; Start 02/23/20 at 09:00 Heparin Sodium (Porcine) (Heparin Sodium) 5,000 unit Q8HRS SQ Last administered on 02/25/20at 05:42; Start 02/22/20 at 22:00 Acetaminophen (Tylenol) 650 mg PRN Q4HRS PRN PO MILD PAIN / TEMP > 100.3'F Last administered on 02/24/20at 18:50; Start 02/22/20 at 20:45 Amino Acids/ Glycerin/ Electrolytes 1,000 ml @ 80 mls/hr [id number] IV Last administered on 02/25/20at 05:40; Start 02/23/20 at 10:30 Vancomycin HCl 500 mg/Sodium Chloride 100 ml @ 100 mls/hr QMWF IV ; Start 02/25/20 at 16:00; Stop 02/24/20 at 11:42; Status DC Sodium Chloride 1,000 ml @ 1,000 mls/hr Q1H PRN IV hypotension; Start 02/23/20 at 11:48; Stop 02/23/20 at 17:47; Status DC Albumin Human 200 ml @ 200 mls/hr 1X PRN PRN IV Hypotension; Start 02/23/20 at 12:00; Stop 02/23/20 at 17:59; Status DC Sodium Chloride 1,000 ml @ 400 mls/hr Q2H30M PRN IV PATENCY; Start 02/23/20 at 11:48; Stop 02/23/20 at 23:47; Status DC Info (PHARMACY MONITORING -- do not chart) 1 each PRN DAILY PRN MC SEE COMMENTS; Start 02/23/20 at 12:00; Status UNV Info (PHARMACY MONITORING -- do not chart) 1 each PRN DAILY PRN MC SEE COMMENTS; Start 02/23/20 at 12:00 Darbepoetin Jono (ARANESP for DIALYSIS PTS) 60 mcg WEEKLYHS SQ Last administered on 02/23/20at 21:52; Start 02/23/20 at 21:00 Lactobacillus Rhamnosus (Culturelle) 1 cap BID PO Last administered on 02/25/20at 09:08; Start 02/23/20 at 21:00 Non-Formulary Medication 1 ea/ Sodium Chloride 210 ml @ 210 mls/hr 1X ONCE IV Last administered on 02/23/20at 20:51; Start 02/23/20 at 16:00; Stop 02/23/20 at 16:59; Status DC Non-Formulary Medication 1 ea/ Sodium Chloride 230 ml @ 460 mls/hr DAILY IV Last administered on 02/25/20at 09:10; Start 02/24/20 at 09:00; Stop 02/27/20 at 09:29 Ondansetron HCl (Zofran) 4 mg PRN Q6HRS PRN IVP NAUSEA/VOMITING Last administered on 02/24/20at 16:15; Start 02/23/20 at 18:45 Sodium Chloride 1,000 ml @ 1,000 mls/hr Q1H PRN IV hypotension; Start 02/25/20 at 13:37; Stop 02/25/20 at 19:36 Albumin Human 200 ml @ 200 mls/hr 1X PRN PRN IV Hypotension; Start 02/25/20 at 13:45; Stop 02/25/20 at 19:44 Sodium Chloride 1,000 ml @ 400 mls/hr Q2H30M PRN IV PATENCY; Start 02/25/20 at 13:37; Stop 02/26/20 at 01:36 Info (PHARMACY MONITORING -- do not chart) 1 each PRN DAILY PRN MC SEE COMMENTS; Start 02/25/20 at 13:45; Status UNV Info (PHARMACY MONITORING -- do not chart) 1 each PRN DAILY PRN MC SEE COMMENTS; Start 02/25/20 at 13:45 Active Scripts Active Oxycodone Hcl Immed.release (Oxycodone Hcl) 5 Mg Tablet 1 Tab PO QID Vitamin D2 (Ergocalciferol (Vitamin D2)) 50,000 Unit Capsule 50,000 Unit PO WEEKLY Folbic Tablet (Cyanocobalamin/Fa/Pyridoxine) 1 Each Tablet 1 Tab PO DAILY Calcitriol 0.25 Mcg Capsule 0.25 Mcg PO DAILY Reported Sodium Bicarbonate 650 Mg Tablet 1,300 Mg PO BID Ferrous Sulfate 325 Mg Tablet 325 Mg PO TIDWMEALS Norvasc (Amlodipine Besylate) 10 Mg Tablet 10 Mg PO DAILY08 Vitals/I & O Vital Sign - Last 24 Hours 02/24/20 02/24/20 02/24/20 02/24/20 18:00 19:00 19:51 20:00 Temp 98.5 98.5 Pulse 72 78 80 Resp 30 27 B/P (MAP) 128/73 (91) 138/72 (94) 137/70 (92) Pulse Ox 95 90 94 94 O2 Delivery BiPAP/CPAP BiPAP/CPAP BiPAP/CPAP BiPAP/CPAP 02/24/20 02/24/20 02/24/20 02/24/20 20:00 21:00 22:00 23:01 Pulse 78 76 Resp B/P (MAP) 139/73 (95) 125/71 (89) Pulse Ox 94 94 95 O2 Delivery Bi-pap BiPAP/CPAP BiPAP/CPAP BiPAP/CPAP 02/24/20 02/24/20 02/25/20 02/25/20 23:04 23:50 00:09 01:04 Temp 97.9 97.9 Pulse 70 72 67 Resp 29 26 26 B/P (MAP) 140/76 (97) 137/75 (95) 126/73 (90) Pulse Ox 97 95 97 O2 Delivery BiPAP/CPAP Bi-pap BiPAP/CPAP BiPAP/CPAP 02/25/20 02/25/20 02/25/20 02/25/20 02:11 03:15 03:55 04:02 Pulse 69 66 Resp 27 22 B/P (MAP) 157/85 (109) 110/64 (79) Pulse Ox 97 97 99 O2 Delivery BiPAP/CPAP BiPAP/CPAP BiPAP/CPAP Bi-pap 02/25/20 02/25/20 02/25/20 02/25/20 04:08 05:15 05:57 07:00 Temp 98.5 98.5 Pulse 69 71 62 60 Resp 26 27 25 24 B/P (MAP) 143/78 (99) 154/82 (106) 132/70 (90) 119/73 (88) Pulse Ox 95 95 94 94 O2 Delivery BiPAP/CPAP BiPAP/CPAP BiPAP/CPAP BiPAP/CPAP 02/25/20 02/25/20 02/25/20 02/25/20 08:00 08:00 08:00 08:34 Temp 97.6 97.6 Pulse 72 Resp 25 B/P (MAP) 143/75 (97) Pulse Ox 97 92 O2 Delivery Bi-pap BiPAP/CPAP BiPAP/CPAP O2 Flow Rate 5.0 02/25/20 02/25/20 02/25/20 02/25/20 09:00 09:10 10:00 11:00 Pulse 64 71 78 76 Resp 23 24 20 B/P (MAP) 125/69 (87) 125/69 127/71 (89) 134/67 (89) Pulse Ox 92 90 91 O2 Delivery Nasal Cannula Nasal Cannula Nasal Cannula O2 Flow Rate 5.0 5.0 5.0 02/25/20 02/25/20 02/25/20 02/25/20 11:51 12:00 12:00 12:00 Temp 98.0 98.0 Pulse 96 Resp 35 B/P (MAP) 131/62 (85) Pulse Ox 93 97 O2 Delivery BiPAP/CPAP Nasal Cannula O2 Flow Rate 5.0 5.0 5.0 02/25/20 02/25/20 02/25/20 02/25/20 13:00 14:00 15:00 15:36 Pulse 70 74 65 Resp 27 32 31 B/P (MAP) 153/73 (99) 145/74 (97) 134/60 (84) Pulse Ox 94 96 94 95 O2 Delivery BiPAP/CPAP BiPAP/CPAP BiPAP/CPAP BiPAP/CPAP 02/25/20 02/25/20 16:00 16:00 Pulse 85 Resp 30 B/P (MAP) 119/67 (84) O2 Delivery Nasal Cannula BiPAP/CPAP O2 Flow Rate 5.0 Intake and Output 02/24/20 02/24/20 02/25/20 15:00 23:00 07:00 Intake Total 1550 ml 100 ml 1400 ml Output Total 150 ml Balance 1550 ml 100 ml 1250 ml Justicifation of Admission Dx: Justifications for Admission: Justification of Admission Dx: Yes Respiratory Failure: Severe Resp Distress ELINA HENDRICKSON MD Feb 25, 2020 17:02
--- NOTE | 2020-02-25 20:02 | NUR ---
Earlier attempt to place PIV per anesthesia w/o success. Communication w Dr Levy. OK to place only central line,NO PICC. Orders placed permit signed /charted.after explanation to patient. Anesthesia called. information. "Will be over after dialysis to place. Communication w pharmacy-time frame of Remdesiver. Reported good x 24 H after mixed. Info passed on to next shift
[2020-02-25] MEDS: ACETAMINOPHEN 325 MG TABLET. PO PRN (23:08)
[2020-02-26] VITALS (23 sets, daily range): BP systolic 110–180; BP diastolic 55–85
[2020-02-26] MEDS: methylPREDNISolone SOD SUCC PF 40 MG/ML VIAL. IV SCH ×3 (00:10→21:28)
--- NOTE | 2020-02-26 00:31 | NUR ---
SHIELD OPERATOR placed 24G left hand, IV remdesivir started at 250cc/hr, monitoring her iv site through the infusion.
[2020-02-26] MEDS: CEFEPIME HCL IV Push 1 GM VIAL. IVP SCH (06:06)
[2020-02-26] MEDS: HEPARIN for SUB-Q USE 5,000 UNIT/ML VIAL. SQ SCH ×3 (06:07→21:29)
[2020-02-26] MEDS: amLODIPine BESYLATE 10 MG TABLET PO SCH (08:00)
--- NOTE | 2020-02-26 08:12 | PDOC ---
Infectious Disease Note Subjective Subjective Feeling better Less work of breathing ROS ROS No nausea vomiting diarrhea Vital Sign Vital Signs Vital Signs Date Time Temp Pulse Resp B/P (MAP) Pulse Ox O2 Delivery O2 Flow Rate FiO2 02/26/20 07:16 96 BiPAP/CPAP 02/26/20 06:00 75 27 113/59 (77) 02/26/20 04:05 98.6 98.6 02/25/20 16:00 5.0 Physical Exam PHYSICAL EXAM GENERAL: Propped up in bed, alert HEENT: normal conjunctivae, oral cavity pink, moist. No thrush. . NECK: Supple, no JVD. LUNGS: + crackles bases, no accessory muscle use. HEART: S1, S2. regular ABDOMEN: Obese, soft, nontender, no guarding. She has an umbilical hernia. EXTREMITIES: No clubbing, cyanosis or gross edema. SKIN: Warm to touch without signs of rash. NEUROLOGIC: Alert and answering questions. Moves all extremities. PIV ok Labs Lab Laboratory Tests Test 02/25/20 08:35 D-Dimer (Rafaela) 1.71 ug/mlFEU (0.00-0.50) Sodium Level 132 mmol/L (136-145) Potassium Level 5.6 mmol/L (3.5-5.1) Chloride Level 97 mmol/L (98-107) Carbon Dioxide Level 25 mmol/L (21-32) Anion Gap 10 (6-14) Blood Urea Nitrogen 68 mg/dL (7-20) Creatinine 4.2 mg/dL (0.6-1.0) Estimated GFR (Cockcroft-Gault) 10.5 Glucose Level 121 mg/dL (70-99) Calcium Level 8.4 mg/dL (8.5-10.1) Objective Assessment Fever - better Pancytopenia. PENICILLIN ALLERGY. Acute hypoxic respiratory failure, off BiPAP; now on 4.5L Congestive heart failure. COVID 19 Plan Plan of Care Steroids DC cefepime Airborne isolation D/w nursing CLINTON MONTANO MD Feb 26, 2020 08:12
[2020-02-26] MEDS: LACTOBACILLUS RHAMNOSUS GG 1 CAPSULE. PO SCH ×2 (09:00→21:28)
[2020-02-26] MEDS: ACETAMINOPHEN 325 MG TABLET. PO PRN (09:37)
--- NOTE | 2020-02-26 09:38 | PDOC ---
Date and Time Called for central line. Needed for meds, TPN and lb draws. Nephrology denied request for PIC line placement Ptient has RU dialysis graft. L chest and IJ area have scars from old temp dialysis cath Max technical solutions consultant, double gloved, N95. 1% lidocaine, chlorasept prep L subclavian entered , wired, 3 lumen placed. Brief run VT resolved when pulled back. free flow all three ports. Flushed, biopatch,sutured at 15cm, sterile dressing, CXR ordered Current Medications Current Medications Ceftriaxone Sodium (Rocephin) 1 gm 1X ONCE IVP Last administered on 02/20/20at 19:37; Start 02/20/20 at 19:30; Stop 02/20/20 at 19:31; Status DC Azithromycin 500 mg/Sodium Chloride 250 ml @ 250 mls/hr 1X ONCE IV ; Start 02/20/20 at 19:30; Stop 02/20/20 at 20:29; Status Cancel Acetaminophen (Tylenol) 1,000 mg 1X ONCE PO Last administered on 02/20/20at 19:37; Start 02/20/20 at 19:30; Stop 02/20/20 at 19:31; Status DC Azithromycin 250 ml @ 250 mls/hr 1X ONCE IV Last administered on 02/20/20at 19:37; Start 02/20/20 at 19:30; Stop 02/20/20 at 20:29; Status DC Ondansetron HCl (Zofran) 4 mg PRN Q8HRS PRN IV NAUSEA/VOMITING; Start 02/20/20 at 19:30; Stop 02/21/20 at 19:29; Status DC Iohexol (Omnipaque 350 Mg/ml) 70 ml 1X ONCE IV Last administered on 02/20/20at 22:19; Start 02/20/20 at 20:00; Stop 02/20/20 at 20:01; Status DC Info (CONTRAST GIVEN -- Rx MONITORING) 1 each PRN DAILY PRN MC SEE COMMENTS; Start 02/20/20 at 20:00; Stop 02/22/20 at 19:59; Status DC Hydralazine HCl (Apresoline Inj) 10 mg 1X ONCE IVP Last administered on 02/20/20at 20:39; Start 02/20/20 at 20:00; Stop 02/20/20 at 20:02; Status DC Multivitamins (Thera M Plus) 1 tab DAILY PO Last administered on 02/25/20at 09:08; Start 02/21/20 at 09:00 Furosemide (Lasix) 40 mg 1X ONCE IVP Last administered on 02/20/20at 20:53; Start 02/20/20 at 21:00; Stop 02/20/20 at 21:01; Status DC Methylprednisolone Sodium Succinate (SOLU-Medrol 40MG VIAL) 40 mg STK-MED ONCE .ROUTE ; Start 02/20/20 at 20:56; Stop 02/20/20 at 20:56; Status DC Methylprednisolone Sodium Succinate (SOLU-Medrol 40MG VIAL) 40 mg Q12HR IV Last administered on 02/26/20at 00:10; Start 02/21/20 at 09:00 Methylprednisolone Sodium Succinate (SOLU-Medrol 40MG VIAL) 80 mg 1X ONCE IV Last administered on 02/20/20at 21:07; Start 02/20/20 at 21:15; Stop 02/20/20 at 21:16; Status DC Lorazepam (Ativan Inj) 2 mg STK-MED ONCE .ROUTE ; Start 02/20/20 at 22:32; Stop 02/20/20 at 22:32; Status DC Norepinephrine Bitartrate 8 mg/ Dextrose 258 ml @ 13.719 mls/ hr 1X ONCE IV Last administered on 02/20/20at 23:45; Start 02/20/20 at 23:45; Stop 02/21/20 at 18:33; Status DC Lorazepam (Ativan Inj) 1 mg 1X ONCE IVP Last administered on 02/20/20at 23:45; Start 02/20/20 at 23:45; Stop 02/20/20 at 23:48; Status DC Vancomycin HCl (Vanco Per Pharmacy) 1 each PRN DAILY PRN MC SEE COMMENTS Last administered on 02/24/20at 11:27; Start 02/21/20 at 06:15; Stop 02/24/20 at 11:42; Status DC Cefepime HCl (Maxipime) 1 gm Q24H IVP Last administered on 02/26/20at 06:06; Start 02/21/20 at 06:15 Azithromycin 250 ml @ 250 mls/hr 1X ONCE IV Last administered on 02/21/20at 06:42; Start 02/21/20 at 06:30; Stop 02/21/20 at 07:29; Status DC Vancomycin HCl 1.5 gm/Sodium Chloride 500 ml @ 250 mls/hr 1X ONCE IV Last administered on 02/21/20at 13:23; Start 02/21/20 at 06:30; Stop 02/21/20 at 08:30; Status DC Vancomycin HCl (Vancomycin Random Level) 1 each 1X ONCE MC Last administered on 02/23/20at 05:00; Start 02/23/20 at 05:00; Stop 02/23/20 at 05:01; Status DC Dextrose (Dextrose 50%-Water Syringe) 25 gm 1X ONCE IV ; Start 02/21/20 at 10:45; Stop 02/21/20 at 10:57; Status DC Insulin Human Regular (HumuLIN R VIAL) 10 unit 1X ONCE IV ; Start 02/21/20 at 10:45; Stop 02/21/20 at 10:52; Status DC Loperamide HCl (Imodium) 2 mg PRN Q15MIN PRN PO DIARRHEA Last administered on 02/25/20at 23:15; Start 02/21/20 at 18:45 Lorazepam (Ativan Inj) 0.5 mg 1X ONCE IVP Last administered on 02/21/20at 21:32; Start 02/21/20 at 21:15; Stop 02/21/20 at 21:16; Status DC Amlodipine Besylate (Norvasc) 10 mg DAILY08 PO Last administered on 02/25/20 09:10; Start 02/23/20 at 08:00 Vitamin B Complex (Folbic Tablet) 1 tab DAILY PO Last administered on 02/25/20at 09:08; Start 02/23/20 at 09:00 Heparin Sodium (Porcine) (Heparin Sodium) 5,000 unit Q8HRS SQ Last administered on 02/26/20 06:07; Start 02/22/20 at 22:00 Acetaminophen (Tylenol) 650 mg PRN Q4HRS PRN PO MILD PAIN / TEMP > 100.3'F Last administered on 02/25/20at 23:08; Start 02/22/20 at 20:45 Amino Acids/ Glycerin/ Electrolytes 1,000 ml @ 80 mls/hr [id number] IV Last administered on 02/25/20at 05:40; Start 02/23/20 at 10:30 Vancomycin HCl 500 mg/Sodium Chloride 100 ml @ 100 mls/hr QMWF IV ; Start 02/25/20 at 16:00; Stop 02/24/20 at 11:42; Status DC Sodium Chloride 1,000 ml @ 1,000 mls/hr Q1H PRN IV hypotension; Start 02/23/20 at 11:48; Stop 02/23/20 at 17:47; Status DC Albumin Human 200 ml @ 200 mls/hr 1X PRN PRN IV Hypotension; Start 02/23/20 at 12:00; Stop 02/23/20 at 17:59; Status DC Sodium Chloride 1,000 ml @ 400 mls/hr Q2H30M PRN IV PATENCY; Start 02/23/20 at 11:48; Stop 02/23/20 at 23:47; Status DC Info (PHARMACY MONITORING -- do not chart) 1 each PRN DAILY PRN MC SEE COMMENTS; Start 02/23/20 at 12:00; Status UNV Info (PHARMACY MONITORING -- do not chart) 1 each PRN DAILY PRN MC SEE COMMENTS; Start 02/23/20 at 12:00 Darbepoetin Jono (ARANESP for DIALYSIS PTS) 60 mcg WEEKLYHS SQ Last administered on 02/23/20at 21:52; Start 02/23/20 at 21:00 Lactobacillus Rhamnosus (Culturelle) 1 cap BID PO Last administered on 02/25/20at 23:08; Start 02/23/20 at 21:00 Non-Formulary Medication 1 ea/ Sodium Chloride 210 ml @ 210 mls/hr 1X ONCE IV Last administered on 02/23/20at 20:51; Start 02/23/20 at 16:00; Stop 02/23/20 at 16:59; Status DC Non-Formulary Medication 1 ea/ Sodium Chloride 230 ml @ 460 mls/hr DAILY IV Last administered on 02/25/20at 09:10; Start 02/24/20 at 09:00; Stop 02/27/20 at 09:29 Ondansetron HCl (Zofran) 4 mg PRN Q6HRS PRN IVP NAUSEA/VOMITING Last administered on 02/24/20at 16:15; Start 02/23/20 at 18:45 Sodium Chloride 1,000 ml @ 1,000 mls/hr Q1H PRN IV hypotension; Start 02/25/20 at 13:37; Stop 02/25/20 at 19:36; Status DC Albumin Human 200 ml @ 200 mls/hr 1X PRN PRN IV Hypotension; Start 02/25/20 at 13:45; Stop 02/25/20 at 19:44; Status DC Sodium Chloride 1,000 ml @ 400 mls/hr Q2H30M PRN IV PATENCY; Start 02/25/20 at 13:37; Stop 02/26/20 at 01:36; Status DC Info (PHARMACY MONITORING -- do not chart) 1 each PRN DAILY PRN MC SEE COMMENTS; Start 02/25/20 at 13:45; Status UNV Info (PHARMACY MONITORING -- do not chart) 1 each PRN DAILY PRN MC SEE COMMENTS; Start 02/25/20 at 13:45 Active Scripts Active Oxycodone Hcl Immed.release (Oxycodone Hcl) 5 Mg Tablet 1 Tab PO QID Vitamin D2 (Ergocalciferol (Vitamin D2)) 50,000 Unit Capsule 50,000 Unit PO WEEKLY Folbic Tablet (Cyanocobalamin/Fa/Pyridoxine) 1 Each Tablet 1 Tab PO DAILY Calcitriol 0.25 Mcg Capsule 0.25 Mcg PO DAILY Reported Sodium Bicarbonate 650 Mg Tablet 1,300 Mg PO BID Ferrous Sulfate 325 Mg Tablet 325 Mg PO TIDWMEALS Norvasc (Amlodipine Besylate) 10 Mg Tablet 10 Mg PO DAILY08 Pertinent Labs/Test Laboratory Tests Test 02/25/20 08:00 02/25/20 08:35 O2 Saturation 89 % (92-99) Arterial Blood pH 7.45 (7.35-7.45) Arterial Blood pCO2 at Patient Temp 36 mmHg (35-46) Arterial Blood pO2 at Patient Temp 66 mmHg (65-108) Arterial Blood HCO3 24 mmol/L (21-28) Arterial Blood Base Excess 0 mmol/L (-3-3) FiO2 40 D-Dimer (Rafaela) 1.71 ug/mlFEU (0.00-0.50) Sodium Level 132 mmol/L (136-145) Potassium Level 5.6 mmol/L (3.5-5.1) Chloride Level 97 mmol/L (98-107) Carbon Dioxide Level 25 mmol/L (21-32) Anion Gap 10 (6-14) Blood Urea Nitrogen 68 mg/dL (7-20) Creatinine 4.2 mg/dL (0.6-1.0) Estimated GFR (Cockcroft-Gault) 10.5 Glucose Level 121 mg/dL (70-99) Calcium Level 8.4 mg/dL (8.5-10.1) LAST VITALS Vital Signs Date Time Temp Pulse Resp B/P (MAP) Pulse Ox O2 Delivery O2 Flow Rate FiO2 02/26/20 07:16 96 BiPAP/CPAP 02/26/20 06:00 75 27 113/59 (77) 02/26/20 04:05 98.6 98.6 02/25/20 16:00 5.0 HUSSEIN RANGEL MD Feb 26, 2020 09:38
[2020-02-26] MEDS: LOPERAMIDE 2 MG CAPSULE PO PRN ×2 (09:41→10:00)
[2020-02-26] MEDS: VITAMIN B12,B9,B6 COMPLEX 1 TABLET. PO SCH (10:00)
[2020-02-26] MEDS: MULTIVITAMIN with MINERAL TABLET. PO SCH (10:01)
--- NOTE | 2020-02-26 10:23 | NUR ---
Difficult lab and PIV stick /addressed w anesthesia. L sub-clavian TLC placed per DR Pearce w difficulty. X-ray pending.
--- NOTE | 2020-02-26 10:26 | PDOC ---
PULMONARY PROGRESS NOTES Subjective Patient feels better, eating Patient off of BiPAP, nasal cannula oxygen, no chest pain no pressure no increasing shortness of breath tolerating a diet Vitals Vital Signs Date Time Temp Pulse Resp B/P (MAP) Pulse Ox O2 Delivery O2 Flow Rate FiO2 02/26/20 08:00 84 104/66 02/26/20 07:16 96 BiPAP/CPAP 02/26/20 06:00 27 02/26/20 04:05 98.6 98.6 02/25/20 16:00 5.0 ROS: No Nausea, No Chest Pain, No Abdominal Pain, No Increase Cough General: Alert HEENT: Other Lungs: Clear Cardiovascular: S1, S2 Abdomen: Soft Neuro Exam: Alert Extremities: No Edema Skin: Warm, No Rashes Labs Laboratory Tests Test 02/25/20 08:00 02/25/20 08:35 O2 Saturation 89 % (92-99) Arterial Blood pH 7.45 (7.35-7.45) Arterial Blood pCO2 at Patient Temp 36 mmHg (35-46) Arterial Blood pO2 at Patient Temp 66 mmHg (65-108) Arterial Blood HCO3 24 mmol/L (21-28) Arterial Blood Base Excess 0 mmol/L (-3-3) FiO2 40 D-Dimer (Rafaela) 1.71 ug/mlFEU (0.00-0.50) Sodium Level 132 mmol/L (136-145) Potassium Level 5.6 mmol/L (3.5-5.1) Chloride Level 97 mmol/L (98-107) Carbon Dioxide Level 25 mmol/L (21-32) Anion Gap 10 (6-14) Blood Urea Nitrogen 68 mg/dL (7-20) Creatinine 4.2 mg/dL (0.6-1.0) Estimated GFR (Cockcroft-Gault) 10.5 Glucose Level 121 mg/dL (70-99) Calcium Level 8.4 mg/dL (8.5-10.1) Medications Active Scripts Medications Dose Route/Sig Max Daily Dose Days Date Category Oxycodone Hcl Immed.release (Oxycodone Hcl) 5 Mg Tablet 1 Tab PO QID 04/15/18 Rx Sodium Bicarbonate 650 Mg Tablet 1,300 Mg PO BID 06/10/17 Reported Ferrous Sulfate 325 Mg Tablet 325 Mg PO TIDWMEALS 06/10/17 Reported Vitamin D2 (Ergocalciferol (Vitamin D2)) 50,000 Unit Capsule 50,000 Unit PO WEEKLY 12/07/16 Rx Folbic Tablet (Cyanocobalamin/Fa/Pyridoxine) 1 Each Tablet 1 Tab PO DAILY 12/07/16 Rx Calcitriol 0.25 Mcg Capsule 0.25 Mcg PO DAILY 12/07/16 Rx Norvasc (Amlodipine Besylate) 10 Mg Tablet 10 Mg PO DAILY08 09/04/13 Reported Comments cta reviewed 1. There are severe bilateral infiltrates greatest of the lower lobes although variable involvement of the other lobes. 2. There is coronary calcification. 3. Main pulmonary artery dilatation suggests pulmonary hypertension. no central pe Impression . IMPRESSION: 1. Acute hypoxemic respiratory failure secondary COVID-19 viral pneumonia 2. Abnormal chest x-ray. 3. Febrile illness. 4. Pancytopenia. 5. Acute diastolic congestive heart failure. 6. End-stage renal disease, on hemodialysis. 7. SARS-CoV-[address] chest Impression: 1. There are severe bilateral infiltrates greatest of the lower lobes although variable involvement of the other lobes. 2. There is coronary calcification. 3. Main pulmonary artery dilatation suggests pulmonary hypertension. Plan . Much better today transfer out of the ICU Steroids will taper soon And hemodialysis per nephrology Follow cultures Initiate Remdisivir 02/22, spoke with pharmacy and RN DVT GI prophylaxis Total cumulative critical care time of 30 minutes, reviewing data, labs, chest x-ray, and formulating a plan. LYRIC SMART MD Feb 26, 2020 10:26
--- NOTE | 2020-02-26 10:26 | PDOC ---
Date and Time 3 lumen tip in SVC, bilateral infiltrates, no pneumothorax Current Medications Current Medications Ceftriaxone Sodium (Rocephin) 1 gm 1X ONCE IVP Last administered on 02/20/20at 19:37; Start 02/20/20 at 19:30; Stop 02/20/20 at 19:31; Status DC Azithromycin 500 mg/Sodium Chloride 250 ml @ 250 mls/hr 1X ONCE IV ; Start 02/20/20 at 19:30; Stop 02/20/20 at 20:29; Status Cancel Acetaminophen (Tylenol) 1,000 mg 1X ONCE PO Last administered on 02/20/20at 19:37; Start 02/20/20 at 19:30; Stop 02/20/20 at 19:31; Status DC Azithromycin 250 ml @ 250 mls/hr 1X ONCE IV Last administered on 02/20/20at 19:37; Start 02/20/20 at 19:30; Stop 02/20/20 at 20:29; Status DC Ondansetron HCl (Zofran) 4 mg PRN Q8HRS PRN IV NAUSEA/VOMITING; Start 02/20/20 at 19:30; Stop 02/21/20 at 19:29; Status DC Iohexol (Omnipaque 350 Mg/ml) 70 ml 1X ONCE IV Last administered on 02/20/20at 22:19; Start 02/20/20 at 20:00; Stop 02/20/20 at 20:01; Status DC Info (CONTRAST GIVEN -- Rx MONITORING) 1 each PRN DAILY PRN MC SEE COMMENTS; Start 02/20/20 at 20:00; Stop 02/22/20 at 19:59; Status DC Hydralazine HCl (Apresoline Inj) 10 mg 1X ONCE IVP Last administered on 02/20/20at 20:39; Start 02/20/20 at 20:00; Stop 02/20/20 at 20:02; Status DC Multivitamins (Thera M Plus) 1 tab DAILY PO Last administered on 02/26/20at 10:01; Start 02/21/20 at 09:00 Furosemide (Lasix) 40 mg 1X ONCE IVP Last administered on 02/20/20at 20:53; Start 02/20/20 at 21:00; Stop 02/20/20 at 21:01; Status DC Methylprednisolone Sodium Succinate (SOLU-Medrol 40MG VIAL) 40 mg STK-MED ONCE .ROUTE ; Start 02/20/20 at 20:56; Stop 02/20/20 at 20:56; Status DC Methylprednisolone Sodium Succinate (SOLU-Medrol 40MG VIAL) 40 mg Q12HR IV Last administered on 02/26/20at 09:42; Start 02/21/20 at 09:00 Methylprednisolone Sodium Succinate (SOLU-Medrol 40MG VIAL) 80 mg 1X ONCE IV Last administered on 02/20/20at 21:07; Start 02/20/20 at 21:15; Stop 02/20/20 at 21:16; Status DC Lorazepam (Ativan Inj) 2 mg STK-MED ONCE .ROUTE ; Start 02/20/20 at 22:32; Stop 02/20/20 at 22:32; Status DC Norepinephrine Bitartrate 8 mg/ Dextrose 258 ml @ 13.719 mls/ hr 1X ONCE IV Last administered on 02/20/20at 23:45; Start 02/20/20 at 23:45; Stop 02/21/20 at 18:33; Status DC Lorazepam (Ativan Inj) 1 mg 1X ONCE IVP Last administered on 02/20/20at 23:45; Start 02/20/20 at 23:45; Stop 02/20/20 at 23:48; Status DC Vancomycin HCl (Vanco Per Pharmacy) 1 each PRN DAILY PRN MC SEE COMMENTS Last administered on 02/24/20at 11:27; Start 02/21/20 at 06:15; Stop 02/24/20 at 11:42; Status DC Cefepime HCl (Maxipime) 1 gm Q24H IVP Last administered on 02/26/20at 06:06; Start 02/21/20 at 06:15 Azithromycin 250 ml @ 250 mls/hr 1X ONCE IV Last administered on 02/21/20at 06:42; Start 02/21/20 at 06:30; Stop 02/21/20 at 07:29; Status DC Vancomycin HCl 1.5 gm/Sodium Chloride 500 ml @ 250 mls/hr 1X ONCE IV Last administered on 02/21/20at 13:23; Start 02/21/20 at 06:30; Stop 02/21/20 at 08:30; Status DC Vancomycin HCl (Vancomycin Random Level) 1 each 1X ONCE MC Last administered on 02/23/20at 05:00; Start 02/23/20 at 05:00; Stop 02/23/20 at 05:01; Status DC Dextrose (Dextrose 50%-Water Syringe) 25 gm 1X ONCE IV ; Start 02/21/20 at 10:45; Stop 02/21/20 at 10:57; Status DC Insulin Human Regular (HumuLIN R VIAL) 10 unit 1X ONCE IV ; Start 02/21/20 at 10:45; Stop 02/21/20 at 10:52; Status DC Loperamide HCl (Imodium) 2 mg PRN Q15MIN PRN PO DIARRHEA Last administered on 02/26/20at 10:00; Start 02/21/20 at 18:45 Lorazepam (Ativan Inj) 0.5 mg 1X ONCE IVP Last administered on 02/21/20at 21:32; Start 02/21/20 at 21:15; Stop 02/21/20 at 21:16; Status DC Amlodipine Besylate (Norvasc) 10 mg DAILY08 PO Last administered on 02/25/20at 09:10; Start 02/23/20 at 08:00 Vitamin B Complex (Folbic Tablet) 1 tab DAILY PO Last administered on 02/26/20at 10:00; Start 02/23/20 at 09:00 Heparin Sodium (Porcine) (Heparin Sodium) 5,000 unit Q8HRS SQ Last administered on 02/26/20at 06:07; Start 02/22/20 at 22:00 Acetaminophen (Tylenol) 650 mg PRN Q4HRS PRN PO MILD PAIN / TEMP > 100.3'F Last administered on 02/26/20at 09:37; Start 02/22/20 at 20:45 Amino Acids/ Glycerin/ Electrolytes 1,000 ml @ 80 mls/hr [id number] IV Last administered on 02/25/20at 05:40; Start 02/23/20 at 10:30 Vancomycin HCl 500 mg/Sodium Chloride 100 ml @ 100 mls/hr QMWF IV ; Start 02/25/20 at 16:00; Stop 02/24/20 at 11:42; Status DC Sodium Chloride 1,000 ml @ 1,000 mls/hr Q1H PRN IV hypotension; Start 02/23/20 at 11:48; Stop 02/23/20 at 17:47; Status DC Albumin Human 200 ml @ 200 mls/hr 1X PRN PRN IV Hypotension; Start 02/23/20 at 12:00; Stop 02/23/20 at 17:59; Status DC Sodium Chloride 1,000 ml @ 400 mls/hr Q2H30M PRN IV PATENCY; Start 02/23/20 at 11:48; Stop 02/23/20 at 23:47; Status DC Info (PHARMACY MONITORING -- do not chart) 1 each PRN DAILY PRN MC SEE COMMENTS; Start 02/23/20 at 12:00; Status UNV Info (PHARMACY MONITORING -- do not chart) 1 each PRN DAILY PRN MC SEE COMMENTS; Start 02/23/20 at 12:00 Darbepoetin Jono (ARANESP for DIALYSIS PTS) 60 mcg WEEKLYHS SQ Last administered on 02/23/20at 21:52; Start 02/23/20 at 21:00 Lactobacillus Rhamnosus (Culturelle) 1 cap BID PO Last administered on 02/26/20at 09:00; Start 02/23/20 at 21:00 Non-Formulary Medication 1 ea/ Sodium Chloride 210 ml @ 210 mls/hr 1X ONCE IV Last administered on 02/23/20at 20:51; Start 02/23/20 at 16:00; Stop 02/23/20 at 16:59; Status DC Non-Formulary Medication 1 ea/ Sodium Chloride 230 ml @ 460 mls/hr DAILY IV Last administered on 02/25/20at 09:10; Start 02/24/20 at 09:00; Stop 02/27/20 at 09:29 Ondansetron HCl (Zofran) 4 mg PRN Q6HRS PRN IVP NAUSEA/VOMITING Last administered on 02/24/20at 16:15; Start 02/23/20 at 18:45 Sodium Chloride 1,000 ml @ 1,000 mls/hr Q1H PRN IV hypotension; Start 02/25/20 at 13:37; Stop 02/25/20 at 19:36; Status DC Albumin Human 200 ml @ 200 mls/hr 1X PRN PRN IV Hypotension; Start 02/25/20 at 13:45; Stop 02/25/20 at 19:44; Status DC Sodium Chloride 1,000 ml @ 400 mls/hr Q2H30M PRN IV PATENCY; Start 02/25/20 at 13:37; Stop 02/26/20 at 01:36; Status DC Info (PHARMACY MONITORING -- do not chart) 1 each PRN DAILY PRN MC SEE COMMENTS; Start 02/25/20 at 13:45; Status UNV Info (PHARMACY MONITORING -- do not chart) 1 each PRN DAILY PRN MC SEE COMMENTS; Start 02/25/20 at 13:45 Active Scripts Active Oxycodone Hcl Immed.release (Oxycodone Hcl) 5 Mg Tablet 1 Tab PO QID Vitamin D2 (Ergocalciferol (Vitamin D2)) 50,000 Unit Capsule 50,000 Unit PO WEEKLY Folbic Tablet (Cyanocobalamin/Fa/Pyridoxine) 1 Each Tablet 1 Tab PO DAILY Calcitriol 0.25 Mcg Capsule 0.25 Mcg PO DAILY Reported Sodium Bicarbonate 650 Mg Tablet 1,300 Mg PO BID Ferrous Sulfate 325 Mg Tablet 325 Mg PO TIDWMEALS Norvasc (Amlodipine Besylate) 10 Mg Tablet 10 Mg PO DAILY08 Pertinent Labs/Test Laboratory Tests Test 02/25/20 08:00 02/25/20 08:35 O2 Saturation 89 % (92-99) Arterial Blood pH 7.45 (7.35-7.45) Arterial Blood pCO2 at Patient Temp 36 mmHg (35-46) Arterial Blood pO2 at Patient Temp 66 mmHg (65-108) Arterial Blood HCO3 24 mmol/L (21-28) Arterial Blood Base Excess 0 mmol/L (-3-3) FiO2 40 D-Dimer (Rafaela) 1.71 ug/mlFEU (0.00-0.50) Sodium Level 132 mmol/L (136-145) Potassium Level 5.6 mmol/L (3.5-5.1) Chloride Level 97 mmol/L (98-107) Carbon Dioxide Level 25 mmol/L (21-32) Anion Gap 10 (6-14) Blood Urea Nitrogen 68 mg/dL (7-20) Creatinine 4.2 mg/dL (0.6-1.0) Estimated GFR (Cockcroft-Gault) 10.5 Glucose Level 121 mg/dL (70-99) Calcium Level 8.4 mg/dL (8.5-10.1) LAST VITALS Vital Signs Date Time Temp Pulse Resp B/P (MAP) Pulse Ox O2 Delivery O2 Flow Rate FiO2 02/26/20 08:00 84 104/66 02/26/20 07:16 96 BiPAP/CPAP 02/26/20 06:00 27 02/26/20 04:05 98.6 98.6 02/25/20 16:00 5.0 HUSSEIN RANGEL MD Feb 26, 2020 10:26
--- NOTE | 2020-02-26 10:28 | RAD ---
EXAM: AP View of the chest DATE: 02/26/2020 9:33 AM INDICATION: LEFT SUBCLAVIAN 3 LUMEN POSITION COMPARISON: 02/20/2020, 12/15/2017 FINDINGS/ IMPRESSION: The heart is not enlarged. Bilateral airspace opacities including retrocardiac left lung base opacities, improved compared to 02/20/2020. Left subclavian vas or catheter tip projects over the confluence of the brachiocephalic veins/proximal SVC. Small bilateral pleural effusions. No definite pneumothorax is identified. Electronically signed by: Giovanni Hale MD (02/26/2020 10:25 AM) [id number]
[2020-02-26] MEDS: NON FORMULARY ITEM 1 EA in IV NORMAL SALINE 250ML 230 ML IV SCH (11:00)
--- NOTE | 2020-02-26 12:05 | PDOC ---
SUBJECTIVE ROS Stable OBJECTIVE Vital Signs Vital Signs Date Time Temp Pulse Resp B/P (MAP) Pulse Ox O2 Delivery O2 Flow Rate FiO2 02/26/20 11:00 82 146/68 (94) 93 Nasal Cannula 5.0 02/26/20 10:00 25 02/26/20 08:00 97.4 97.4 I & 0 Intake and Output 02/26/20 07:00 Intake Total 570 ml Output Total 451 ml Balance 119 ml Intake Oral 570 ml Output Urine Total 450 ml Urine/Stool Mix 1 ml # Bowel Movements 1 PHYSICAL EXAM Physical Exam GENERAL: alert,NAD HEENT: OM moist. NECK: Supple, no JVD. LUNGS: , no accessory muscle use. HEART: S1, S2. regular ABDOMEN: Obese, soft, nontender, has an umbilical hernia. EXTREMITIES: No clubbing, cyanosis or gross edema. SKIN: No rash. NEUROLOGIC: Alert and answering questions. Moves all extremities. No Harris DIAGNOSIS/ASSESSMENT Assessment & Plan ESRD - On HD MWF since December 2017 No indication for HD today Sepsis Panycytopenia Acute hypoxic resp failure - stable , On NC CTA - severe bilateral infiltrates greatest of the lower lobes COVID-19 Positive Initiated on Remdisivir 02/22, HTN- BP at goal Chronic anemia,- SCARLET COMMENT/RELEVANT DATA Meds Current Medications Medications (Trade) Dose Ordered Sig/Rebecca Start Time Stop Time Status Last Admin Dose Admin Acetaminophen (Tylenol) 650 mg PRN Q4HRS PRN 02/22/20 20:45 02/26/20 09:37 650 MG Albumin Human 200 ml @ 200 mls/hr 1X PRN PRN 02/25/20 13:45 02/25/20 19:44 DC Amino Acids/ Glycerin/ Electrolytes 1,000 ml @ 80 mls/hr [id number] 02/23/20 10:30 02/25/20 05:40 80 MLS/HR Amlodipine Besylate (Norvasc) 10 mg DAILY08 02/23/20 08:00 02/25/20 09:10 10 MG Azithromycin 250 ml @ 250 mls/hr 1X ONCE 02/21/20 06:30 02/21/20 07:29 DC 02/21/20 06:42 250 MLS/HR Azithromycin 500 mg/Sodium Chloride 250 ml @ 250 mls/hr 1X ONCE 02/20/20 19:30 02/20/20 20:29 Cancel Cefepime HCl (Maxipime) 1 gm Q24H 02/21/20 06:15 02/26/20 11:51 DC 02/26/20 06:06 1 GM Ceftriaxone Sodium (Rocephin) 1 gm 1X ONCE 02/20/20 19:30 02/20/20 19:31 DC 02/20/20 19:37 1 GM Darbepoetin Jono (ARANESP for DIALYSIS PTS) 60 mcg WEEKLYHS 02/23/20 21:00 02/23/20 21:52 60 MCG Dextrose (Dextrose 50%-Water Syringe) 25 gm 1X ONCE 02/21/20 10:45 02/21/20 10:57 DC Furosemide (Lasix) 40 mg 1X ONCE 02/20/20 21:00 02/20/20 21:01 DC 02/20/20 20:53 40 MG Heparin Sodium (Porcine) (Heparin Sodium) 5,000 unit Q8HRS 02/22/20 22:00 02/26/20 06:07 5,000 UNIT Hydralazine HCl (Apresoline Inj) 10 mg 1X ONCE 02/20/20 20:00 02/20/20 20:02 DC 02/20/20 20:39 10 MG Info (CONTRAST GIVEN -- Rx MONITORING) 1 each PRN DAILY PRN 02/20/20 20:00 02/22/20 19:59 DC Info (PHARMACY MONITORING -- do not chart) 1 each PRN DAILY PRN 02/25/20 13:45 Insulin Human Regular (HumuLIN R VIAL) 10 unit 1X ONCE 02/21/20 10:45 02/21/20 10:52 DC Iohexol (Omnipaque 350 Mg/ml) 70 ml 1X ONCE 02/20/20 20:00 02/20/20 20:01 DC 02/20/20 22:19 70 ML Lactobacillus Rhamnosus (Culturelle) 1 cap BID 02/23/20 21:00 02/26/20 09:00 1 CAP Loperamide HCl (Imodium) 2 mg PRN Q15MIN PRN 02/21/20 18:45 02/26/20 10:00 2 MG Lorazepam (Ativan Inj) 0.5 mg 1X ONCE 02/21/20 21:15 02/21/20 21:16 DC 02/21/20 21:32 0.5 MG Methylprednisolone Sodium Succinate (SOLU-Medrol 40MG VIAL) 80 mg 1X ONCE 02/20/20 21:15 02/20/20 21:16 DC 02/20/20 21:07 80 MG Multivitamins (Thera M Plus) 1 tab DAILY 02/21/20 09:00 02/26/20 10:01 1 TAB Non-Formulary Medication 1 ea/ Sodium Chloride 230 ml @ 460 mls/hr DAILY 02/24/20 09:00 02/27/20 09:29 02/26/20 11:00 460 MLS/HR Norepinephrine Bitartrate 8 mg/ Dextrose 258 ml @ 13.719 mls/ hr 1X ONCE 02/20/20 23:45 02/21/20 18:33 DC 02/20/20 23:45 13.1 MLS/HR Ondansetron HCl (Zofran) 4 mg PRN Q6HRS PRN 02/23/20 18:45 02/24/20 16:15 4 MG Sodium Chloride 1,000 ml @ 400 mls/hr Q2H30M PRN 02/25/20 13:37 02/26/20 01:36 DC Vancomycin HCl (Vanco Per Pharmacy) 1 each PRN DAILY PRN 02/21/20 06:15 02/24/20 11:42 DC 02/24/20 11:27 1 EACH Vancomycin HCl (Vancomycin Random Level) 1 each 1X ONCE 02/23/20 05:00 02/23/20 05:01 DC 02/23/20 05:00 1 EACH Vancomycin HCl 1.5 gm/Sodium Chloride 500 ml @ 250 mls/hr 1X ONCE 02/21/20 06:30 02/21/20 08:30 DC 02/21/20 13:23 250 MLS/HR Vancomycin HCl 500 mg/Sodium Chloride 100 ml @ 100 mls/hr QMWF 02/25/20 16:00 02/24/20 11:42 DC Vitamin B Complex (Folbic Tablet) 1 tab DAILY 02/23/20 09:00 02/26/20 10:00 1 TAB Results All relevant outside records, renal labs, imaging studies, telemetry/EKG's were reviewed. Justicifation of Admission Dx: Justifications for Admission: Justification of Admission Dx: Yes Respiratory Failure: Severe Resp Distress MAIRA PATIÑO MD Feb 26, 2020 12:05
[2020-02-26] MEDS: AMINO AC 3%/ELECTROLYTE/GLYCER 1,000 ML IV SCH (13:30)
[2020-02-26] MEDS ORDERED: LORazepam 1 MG TABLET PO PRN (14:00)
--- NOTE | 2020-02-26 15:00 | NUR ---
SS following up with discharge planning. SS reviewed pt chart and discussed with pt RN. Pt COVID19 positive. Pt on nasal canula oxygen. Pt on PPN but per RN is eating 50%-75% of meals. Pt has outpatient dialysis set up at [facility] in [place]. Pt getting triple lumen cath on left side. SS will continue to follow for discharge planning.
[2020-02-26 16:07] LABS: CALCIUM 8.1 mg/dL (8.5-10.1); CREATININE 3.4 mg/dL (0.6-1.0); GFR 13.4; POTASSIUM 4.4 mmol/L (3.5-5.1)
[2020-02-27] VITALS (9 sets, daily range): BP systolic 133–172; BP diastolic 56–92
[2020-02-27] MEDS: AMINO AC 3%/ELECTROLYTE/GLYCER 1,000 ML IV SCH ×2 (00:03→14:04)
[2020-02-27 05:35] LABS: ALBUMIN 2.2 g/dL (3.4-5.0); CALCIUM 8.6 mg/dL (8.5-10.1); GFR 11.1; POTASSIUM 5.5 mmol/L (3.5-5.1)
[2020-02-27] MEDS: HEPARIN for SUB-Q USE 5,000 UNIT/ML VIAL. SQ SCH ×3 (06:14→21:25)
[2020-02-27] MEDS ORDERED: IV NORMAL SALINE 1000ML BAG 1,000 ML IV PRN ×2 (07:51)
--- NOTE | 2020-02-27 07:55 | PDOC ---
Infectious Disease Note Subjective Subjective Feeling much better Less work of breathing ROS ROS No nausea vomiting diarrhea chest pain or fever Vital Sign Vital Signs Vital Signs Date Time Temp Pulse Resp B/P (MAP) Pulse Ox O2 Delivery O2 Flow Rate FiO2 02/27/20 04:00 76 24 142/71 (94) 93 Nasal Cannula 5.0 02/27/20 00:00 98.1 98.1 Physical Exam PHYSICAL EXAM GENERAL: Propped up in bed, alert HEENT: normal conjunctivae, oral cavity pink, moist. No thrush. . NECK: Supple, no JVD. LUNGS: + crackles bases, no accessory muscle use. HEART: S1, S2. regular ABDOMEN: Obese, soft, nontender, no guarding. She has an umbilical hernia. EXTREMITIES: No clubbing, cyanosis or gross edema. SKIN: Warm to touch without signs of rash. NEUROLOGIC: Alert and answering questions. Moves all extremities. PIV ok Labs Lab Laboratory Tests Test 02/26/20 11:00 02/27/20 04:50 Sodium Level 132 mmol/L (136-145) 131 mmol/L (136-145) Potassium Level 4.4 mmol/L (3.5-5.1) 5.5 mmol/L (3.5-5.1) Chloride Level 95 mmol/L (98-107) 96 mmol/L (98-107) Carbon Dioxide Level 25 mmol/L (21-32) 24 mmol/L (21-32) Anion Gap 12 (6-14) 11 (6-14) Blood Urea Nitrogen 51 mg/dL (7-20) 80 mg/dL (7-20) Creatinine 3.4 mg/dL (0.6-1.0) 4.0 mg/dL (0.6-1.0) Estimated GFR (Cockcroft-Gault) 13.4 11.1 Glucose Level 186 mg/dL (70-99) 143 mg/dL (70-99) Calcium Level 8.1 mg/dL (8.5-10.1) 8.6 mg/dL (8.5-10.1) Phosphorus Level 4.0 mg/dL (2.6-4.7) Albumin 2.2 g/dL (3.4-5.0) Objective Assessment Fever - better Pancytopenia. PENICILLIN ALLERGY. Acute hypoxic respiratory failure, off BiPAP; now on 4.5L Congestive heart failure. COVID 19 Plan Plan of Care Steroids Airborne isolation D/w nursing CLINTON MONTANO MD Feb 27, 2020 07:54
[2020-02-27] MEDS ORDERED: DIALYSIS PATIENT. MC PRN (08:00)
[2020-02-27] MEDS ORDERED: ALBUMIN HUMAN 25% 200 ML IV PRN (08:00)
--- NOTE | 2020-02-27 08:23 | RAD ---
PORTABLE CHEST 1V Clinical indications: Central line placement. COMPARISON: February 26, 2020. Findings: Left subclavian central line is in place and the tip is seen within the upper superior vena cava. There has been an increase in diffuse bilateral alveolar pulmonary edema. Small left-sided pleural effusion is seen. No pneumothorax is evident. Heart size and mediastinum are stable. IMPRESSION: Placement of central line without pneumothorax. Worsening bilateral pulmonary edema. Electronically signed by: Mat Moseley MD (02/27/2020 8:20 AM) [id number]
--- NOTE | 2020-02-27 10:18 | PDOC ---
SUBJECTIVE ROS Stable , O2 sats drop with activity, she is refusing to wear Bipap On O2 5 lts by VT OBJECTIVE Vital Signs Vital Signs Date Time Temp Pulse Resp B/P (MAP) Pulse Ox O2 Delivery O2 Flow Rate FiO2 02/27/20 04:00 76 24 142/71 (94) 93 Nasal Cannula 5.0 02/27/20 00:00 98.1 98.1 I & 0 Intake and Output 02/27/20 07:00 Intake Total 3984 ml Output Total 1150 ml Balance 2834 ml Intake Oral 625 ml IV Total 3359 ml Output Urine Total 1150 ml # Voids 1 # Bowel Movements 5 PHYSICAL EXAM Physical Exam GENERAL: alert,NAD HEENT: OM moist. NECK: Supple, no JVD. LUNGS: , no accessory muscle use. HEART: S1, S2. regular ABDOMEN: Obese, soft, nontender, has an umbilical hernia. EXTREMITIES: No clubbing, cyanosis or gross edema. SKIN: No rash. NEUROLOGIC: Alert and answering questions. Moves all extremities. No Harris DIAGNOSIS/ASSESSMENT Assessment & Plan ESRD - On HD MWF since December 2017 Seen on HD, tolerating well, continue as ordered , Paulo Celis Sepsis Panycytopenia Acute hypoxic resp failure - stable , On NC CTA - severe bilateral infiltrates greatest of the lower lobes COVID-19 Positive Initiated on Remdisivir 02/22, HTN- BP at goal Chronic anemia,- SCARLET COMMENT/RELEVANT DATA Meds Current Medications Medications (Trade) Dose Ordered Sig/Rebecca Start Time Stop Time Status Last Admin Dose Admin Acetaminophen (Tylenol) 650 mg PRN Q4HRS PRN 02/22/20 20:45 02/26/20 09:37 650 MG Albumin Human 200 ml @ 200 mls/hr 1X PRN PRN 02/27/20 08:00 02/27/20 13:59 Amino Acids/ Glycerin/ Electrolytes 1,000 ml @ 80 mls/hr [id number] 02/23/20 10:30 02/27/20 00:03 80 MLS/HR Amlodipine Besylate (Norvasc) 10 mg DAILY08 02/23/20 08:00 02/25/20 09:10 10 MG Azithromycin 250 ml @ 250 mls/hr 1X ONCE 02/21/20 06:30 02/21/20 07:29 DC 02/21/20 06:42 250 MLS/HR Azithromycin 500 mg/Sodium Chloride 250 ml @ 250 mls/hr 1X ONCE 02/20/20 19:30 02/20/20 20:29 Cancel Cefepime HCl (Maxipime) 1 gm Q24H 02/21/20 06:15 02/26/20 11:51 DC 02/26/20 06:06 1 GM Ceftriaxone Sodium (Rocephin) 1 gm 1X ONCE 02/20/20 19:30 02/20/20 19:31 DC 02/20/20 19:37 1 GM Darbepoetin Jono (ARANESP for DIALYSIS PTS) 60 mcg WEEKLYHS 02/23/20 21:00 02/23/20 21:52 60 MCG Dextrose (Dextrose 50%-Water Syringe) 25 gm 1X ONCE 02/21/20 10:45 02/21/20 10:57 DC Furosemide (Lasix) 40 mg 1X ONCE 02/20/20 21:00 02/20/20 21:01 DC 02/20/20 20:53 40 MG Heparin Sodium (Porcine) (Heparin Sodium) 5,000 unit Q8HRS 02/22/20 22:00 02/27/20 06:14 5,000 UNIT Hydralazine HCl (Apresoline Inj) 10 mg 1X ONCE 02/20/20 20:00 02/20/20 20:02 DC 02/20/20 20:39 10 MG Info (CONTRAST GIVEN -- Rx MONITORING) 1 each PRN DAILY PRN 02/20/20 20:00 02/22/20 19:59 DC Info (PHARMACY MONITORING -- do not chart) 1 each PRN DAILY PRN 02/27/20 08:00 Insulin Human Regular (HumuLIN R VIAL) 10 unit 1X ONCE 02/21/20 10:45 02/21/20 10:52 DC Iohexol (Omnipaque 350 Mg/ml) 70 ml 1X ONCE 02/20/20 20:00 02/20/20 20:01 DC 02/20/20 22:19 70 ML Lactobacillus Rhamnosus (Culturelle) 1 cap BID 02/23/20 21:00 02/26/20 21:28 1 CAP Loperamide HCl (Imodium) 2 mg PRN Q15MIN PRN 02/21/20 18:45 02/26/20 10:00 2 MG Lorazepam (Ativan Inj) 0.5 mg 1X ONCE 02/21/20 21:15 02/21/20 21:16 DC 02/21/20 21:32 0.5 MG Lorazepam (Ativan) 1 mg 1X PRN 02/26/20 14:00 02/26/20 14:10 DC 02/26/20 14:10 1 MG Methylprednisolone Sodium Succinate (SOLU-Medrol 40MG VIAL) 80 mg 1X ONCE 02/20/20 21:15 02/20/20 21:16 DC 02/20/20 21:07 80 MG Multivitamins (Thera M Plus) 1 tab DAILY 02/21/20 09:00 02/26/20 10:01 1 TAB Non-Formulary Medication 1 ea/ Sodium Chloride 230 ml @ 460 mls/hr DAILY 02/24/20 09:00 02/27/20 09:29 DC 02/26/20 11:00 460 MLS/HR Norepinephrine Bitartrate 8 mg/ Dextrose 258 ml @ 13.719 mls/ hr 1X ONCE 02/20/20 23:45 02/21/20 18:33 DC 02/20/20 23:45 13.1 MLS/HR Ondansetron HCl (Zofran) 4 mg PRN Q6HRS PRN 02/23/20 18:45 02/24/20 16:15 4 MG Sodium Chloride 1,000 ml @ 400 mls/hr Q2H30M PRN 02/27/20 07:51 02/27/20 19:50 Vancomycin HCl (Vanco Per Pharmacy) 1 each PRN DAILY PRN 02/21/20 06:15 02/24/20 11:42 DC 02/24/20 11:27 1 EACH Vancomycin HCl (Vancomycin Random Level) 1 each 1X ONCE 02/23/20 05:00 02/23/20 05:01 DC 02/23/20 05:00 1 EACH Vancomycin HCl 1.5 gm/Sodium Chloride 500 ml @ 250 mls/hr 1X ONCE 02/21/20 06:30 02/21/20 08:30 DC 02/21/20 13:23 250 MLS/HR Vancomycin HCl 500 mg/Sodium Chloride 100 ml @ 100 mls/hr QMWF 02/25/20 16:00 02/24/20 11:42 DC Vitamin B Complex (Folbic Tablet) 1 tab DAILY 02/23/20 09:00 02/26/20 10:00 1 TAB Lab Laboratory Tests Test 02/26/20 11:00 02/27/20 04:50 02/27/20 09:48 Sodium Level 132 mmol/L (136-145) 131 mmol/L (136-145) Potassium Level 4.4 mmol/L (3.5-5.1) 5.5 mmol/L (3.5-5.1) Chloride Level 95 mmol/L (98-107) 96 mmol/L (98-107) Carbon Dioxide Level 25 mmol/L (21-32) 24 mmol/L (21-32) Anion Gap 12 (6-14) 11 (6-14) Blood Urea Nitrogen 51 mg/dL (-20) 80 mg/dL (-20) Creatinine 3.4 mg/dL (0.6-1.0) 4.0 mg/dL (0.6-1.0) Estimated GFR (Cockcroft-Gault) 13.4 11.1 Glucose Level 186 mg/dL (70-99) 143 mg/dL (70-99) Calcium Level 8.1 mg/dL (8.5-10.1) 8.6 mg/dL (8.5-10.1) Phosphorus Level 4.0 mg/dL (2.6-4.7) Albumin 2.2 g/dL (3.4-5.0) Glucose (Fingerstick) 126 mg/dL (70-99) Results All relevant outside records, renal labs, imaging studies, telemetry/EKG's were reviewed. Justicifation of Admission Dx: Justifications for Admission: Justification of Admission Dx: Yes Respiratory Failure: Severe Resp Distress MAIRA PATIÑO MD Feb 27, 2020 10:18
--- NOTE | 2020-02-27 11:01 | PDOC ---
PROGRESS NOTES Chief Complaint Chief Complaint A/P: Sepsis - concern for bilateral pneumonia vs COVID 19 COVID-19SARS COV2+ Panycytopenia Acute hypoxic resp failure - on Bipap CKD onHD Acute CHF Elevated troponin HTN urgency Severe protein calorie malnutrition History of Present Illness History of Present Illness Ms Murillo is a 69yo F ESRD on HD, anemia who presented to [facility] on 02/19 with complaints of shortness of air, feeling chills while at dialysis. Noted in ED with a temperature of 103.2. On arrival, she had a white count of 2.8. A chest x-ray was obtained. She had bilateral infiltrates, some rounded areas of density, possible metastatic or nodules in the lungs. Subsequently, underwent a CT angiography of her chest showed there were several bilateral infiltrates, greatest in the lower lobes, although variable involvement of the other lobes and she had pulmonary hypertension. ABG 7.25/59/64, and she had been placed on BiPAP and was given doses of azithromycin and Rocephin as well as steroids. Currently, she is lying in bed. She is feeling more comfortable. She is on BiPAP. She has had a dry cough and a little bit of diarrhea. Plan: COVID 19 positive Cont ICU care. wean 02 as tolerated. seems comfortable off bipap now continue remdesevir steroids abx CC time 38 minutes Vitals Vitals Vital Signs Date Time Temp Pulse Resp B/P (MAP) Pulse Ox O2 Delivery O2 Flow Rate FiO2 02/27/20 08:00 97.7 82 18 144/68 (93) 95 Nasal Cannula 5.0 97.7 Physical Exam Physical Exam GENERAL: Propped up in bed, alert HEENT: normal conjunctivae, oral cavity pink, moist. No thrush. . NECK: Supple, no JVD. LUNGS: + crackles bases, no accessory muscle use. HEART: S1, S2. regular ABDOMEN: Obese, soft, nontender, no guarding. She has an umbilical hernia. EXTREMITIES: No clubbing, cyanosis or gross edema. SKIN: Warm to touch without signs of rash. NEUROLOGIC: Alert and answering questions. Moves all extremities. PIV ok General: Alert, Cooperative, moderate distress Heart: Regular rate, Normal S1, Normal S2 Lungs: Clear Abdomen: Normal bowel sounds, Soft Extremities: No clubbing, No cyanosis Skin: No rashes, No breakdown Labs LABS Laboratory Tests Test 02/26/20 11:00 02/27/20 04:50 02/27/20 09:48 Sodium Level 132 mmol/L (136-145) 131 mmol/L (136-145) Potassium Level 4.4 mmol/L (3.5-5.1) 5.5 mmol/L (3.5-5.1) Chloride Level 95 mmol/L (98-107) 96 mmol/L (98-107) Carbon Dioxide Level 25 mmol/L (21-32) 24 mmol/L (21-32) Anion Gap 12 (6-14) 11 (6-14) Blood Urea Nitrogen 51 mg/dL (7-20) 80 mg/dL (7-20) Creatinine 3.4 mg/dL (0.6-1.0) 4.0 mg/dL (0.6-1.0) Estimated GFR (Cockcroft-Gault) 13.4 11.1 Glucose Level 186 mg/dL (70-99) 143 mg/dL (70-99) Calcium Level 8.1 mg/dL (8.5-10.1) 8.6 mg/dL (8.5-10.1) Phosphorus Level 4.0 mg/dL (2.6-4.7) Albumin 2.2 g/dL (3.4-5.0) Glucose (Fingerstick) 126 mg/dL (70-99) Comment Review of Relevant I have reviewed the following items yoel (where applicable) has been applied. Labs Laboratory Tests Test 02/26/20 11:00 02/27/20 04:50 02/27/20 09:48 Sodium Level 132 mmol/L (136-145) 131 mmol/L (136-145) Potassium Level 4.4 mmol/L (3.5-5.1) 5.5 mmol/L (3.5-5.1) Chloride Level 95 mmol/L (98-107) 96 mmol/L (98-107) Carbon Dioxide Level 25 mmol/L (21-32) 24 mmol/L (21-32) Anion Gap 12 (6-14) 11 (6-14) Blood Urea Nitrogen 51 mg/dL (7-20) 80 mg/dL (7-20) Creatinine 3.4 mg/dL (0.6-1.0) 4.0 mg/dL (0.6-1.0) Estimated GFR (Cockcroft-Gault) 13.4 11.1 Glucose Level 186 mg/dL (70-99) 143 mg/dL (70-99) Calcium Level 8.1 mg/dL (8.5-10.1) 8.6 mg/dL (8.5-10.1) Phosphorus Level 4.0 mg/dL (2.6-4.7) Albumin 2.2 g/dL (3.4-5.0) Glucose (Fingerstick) 126 mg/dL (70-99) Laboratory Tests Test 02/26/20 11:00 02/27/20 04:50 02/27/20 09:48 Sodium Level 132 mmol/L (136-145) 131 mmol/L (136-145) Potassium Level 4.4 mmol/L (3.5-5.1) 5.5 mmol/L (3.5-5.1) Chloride Level 95 mmol/L (98-107) 96 mmol/L (98-107) Carbon Dioxide Level 25 mmol/L (21-32) 24 mmol/L (21-32) Anion Gap 12 (6-14) 11 (6-14) Blood Urea Nitrogen 51 mg/dL (7-20) 80 mg/dL (7-20) Creatinine 3.4 mg/dL (0.6-1.0) 4.0 mg/dL (0.6-1.0) Estimated GFR (Cockcroft-Gault) 13.4 11.1 Glucose Level 186 mg/dL (70-99) 143 mg/dL (70-99) Calcium Level 8.1 mg/dL (8.5-10.1) 8.6 mg/dL (8.5-10.1) Phosphorus Level 4.0 mg/dL (2.6-4.7) Albumin 2.2 g/dL (3.4-5.0) Glucose (Fingerstick) 126 mg/dL (70-99) Medications Current Medications Ceftriaxone Sodium (Rocephin) 1 gm 1X ONCE IVP Last administered on 02/20/20at 19:37; Start 02/20/20 at 19:30; Stop 02/20/20 at 19:31; Status DC Azithromycin 500 mg/Sodium Chloride 250 ml @ 250 mls/hr 1X ONCE IV ; Start 02/20/20 at 19:30; Stop 02/20/20 at 20:29; Status Cancel Acetaminophen (Tylenol) 1,000 mg 1X ONCE PO Last administered on 02/20/20at 19:37; Start 02/20/20 at 19:30; Stop 02/20/20 at 19:31; Status DC Azithromycin 250 ml @ 250 mls/hr 1X ONCE IV Last administered on 02/20/20at 19:37; Start 02/20/20 at 19:30; Stop 02/20/20 at 20:29; Status DC Ondansetron HCl (Zofran) 4 mg PRN Q8HRS PRN IV NAUSEA/VOMITING; Start 02/20/20 at 19:30; Stop 02/21/20 at 19:29; Status DC Iohexol (Omnipaque 350 Mg/ml) 70 ml 1X ONCE IV Last administered on 02/20/20at 22:19; Start 02/20/20 at 20:00; Stop 02/20/20 at 20:01; Status DC Info (CONTRAST GIVEN -- Rx MONITORING) 1 each PRN DAILY PRN MC SEE COMMENTS; Start 02/20/20 at 20:00; Stop 02/22/20 at 19:59; Status DC Hydralazine HCl (Apresoline Inj) 10 mg 1X ONCE IVP Last administered on 02/20/20at 20:39; Start 02/20/20 at 20:00; Stop 02/20/20 at 20:02; Status DC Multivitamins (Thera M Plus) 1 tab DAILY PO Last administered on 02/26/20at 10:01; Start 02/21/20 at 09:00 Furosemide (Lasix) 40 mg 1X ONCE IVP Last administered on 02/20/20at 20:53; Start 02/20/20 at 21:00; Stop 02/20/20 at 21:01; Status DC Methylprednisolone Sodium Succinate (SOLU-Medrol 40MG VIAL) 40 mg STK-MED ONCE .ROUTE ; Start 02/20/20 at 20:56; Stop 02/20/20 at 20:56; Status DC Methylprednisolone Sodium Succinate (SOLU-Medrol 40MG VIAL) 40 mg Q12HR IV Last administered on 02/26/20at 21:28; Start 02/21/20 at 09:00 Methylprednisolone Sodium Succinate (SOLU-Medrol 40MG VIAL) 80 mg 1X ONCE IV Last administered on 02/20/20at 21:07; Start 02/20/20 at 21:15; Stop 02/20/20 at 21:16; Status DC Lorazepam (Ativan Inj) 2 mg STK-MED ONCE .ROUTE ; Start 02/20/20 at 22:32; Stop 02/20/20 at 22:32; Status DC Norepinephrine Bitartrate 8 mg/ Dextrose 258 ml @ 13.719 mls/ hr 1X ONCE IV Last administered on 02/20/20at 23:45; Start 02/20/20 at 23:45; Stop 02/21/20 at 18:33; Status DC Lorazepam (Ativan Inj) 1 mg 1X ONCE IVP Last administered on 02/20/20at 23:45; Start 02/20/20 at 23:45; Stop 02/20/20 at 23:48; Status DC Vancomycin HCl (Vanco Per Pharmacy) 1 each PRN DAILY PRN MC SEE COMMENTS Last administered on 02/24/20at 11:27; Start 02/21/20 at 06:15; Stop 02/24/20 at 11:42; Status DC Cefepime HCl (Maxipime) 1 gm Q24H IVP Last administered on 02/26/20at 06:06; Start 02/21/20 at 06:15; Stop 02/26/20 at 11:51; Status DC Azithromycin 250 ml @ 250 mls/hr 1X ONCE IV Last administered on 02/21/20at 06:42; Start 02/21/20 at 06:30; Stop 02/21/20 at 07:29; Status DC Vancomycin HCl 1.5 gm/Sodium Chloride 500 ml @ 250 mls/hr 1X ONCE IV Last administered on 02/21/20at 13:23; Start 02/21/20 at 06:30; Stop 02/21/20 at 08:30; Status DC Vancomycin HCl (Vancomycin Random Level) 1 each 1X ONCE MC Last administered on 02/23/20at 05:00; Start 02/23/20 at 05:00; Stop 02/23/20 at 05:01; Status DC Dextrose (Dextrose 50%-Water Syringe) 25 gm 1X ONCE IV ; Start 02/21/20 at 10:45; Stop 02/21/20 at 10:57; Status DC Insulin Human Regular (HumuLIN R VIAL) 10 unit 1X ONCE IV ; Start 02/21/20 at 10:45; Stop 02/21/20 at 10:52; Status DC Loperamide HCl (Imodium) 2 mg PRN Q15MIN PRN PO DIARRHEA Last administered on 02/26/20at 10:00; Start 02/21/20 at 18:45 Lorazepam (Ativan Inj) 0.5 mg 1X ONCE IVP Last administered on 02/21/20at 21:32; Start 02/21/20 at 21:15; Stop 02/21/20 at 21:16; Status DC Amlodipine Besylate (Norvasc) 10 mg DAILY08 PO Last administered on 02/25/20at 09:10; Start 02/23/20 at 08:00 Vitamin B Complex (Folbic Tablet) 1 tab DAILY PO Last administered on 02/26/20at 10:00; Start 02/23/20 at 09:00 Heparin Sodium (Porcine) (Heparin Sodium) 5,000 unit Q8HRS SQ Last administered on 02/27/20at 06:14; Start 02/22/20 at 22:00 Acetaminophen (Tylenol) 650 mg PRN Q4HRS PRN PO MILD PAIN / TEMP > 100.3'F Last administered on 02/26/20at 09:37; Start 02/22/20 at 20:45 Amino Acids/ Glycerin/ Electrolytes 1,000 ml @ 80 mls/hr [id number] IV Last administered on 02/27/20at 00:03; Start 02/23/20 at 10:30 Vancomycin HCl 500 mg/Sodium Chloride 100 ml @ 100 mls/hr QMWF IV ; Start 02/25/20 at 16:00; Stop 02/24/20 at 11:42; Status DC Sodium Chloride 1,000 ml @ 1,000 mls/hr Q1H PRN IV hypotension; Start 02/23/20 at 11:48; Stop 02/23/20 at 17:47; Status DC Albumin Human 200 ml @ 200 mls/hr 1X PRN PRN IV Hypotension; Start 02/23/20 at 12:00; Stop 02/23/20 at 17:59; Status DC Sodium Chloride 1,000 ml @ 400 mls/hr Q2H30M PRN IV PATENCY; Start 02/23/20 at 11:48; Stop 02/23/20 at 23:47; Status DC Info (PHARMACY MONITORING -- do not chart) 1 each PRN DAILY PRN MC SEE COMMENTS; Start 02/23/20 at 12:00; Status UNV Info (PHARMACY MONITORING -- do not chart) 1 each PRN DAILY PRN MC SEE COMMENTS; Start 02/23/20 at 12:00 Darbepoetin Jono (ARANESP for DIALYSIS PTS) 60 mcg WEEKLYHS SQ Last administered on 02/23/20at 21:52; Start 02/23/20 at 21:00 Lactobacillus Rhamnosus (Culturelle) 1 cap BID PO Last administered on 02/26/20at 21:28; Start 02/23/20 at 21:00 Non-Formulary Medication 1 ea/ Sodium Chloride 210 ml @ 210 mls/hr 1X ONCE IV Last administered on 02/23/20at 20:51; Start 02/23/20 at 16:00; Stop 02/23/20 at 16:59; Status DC Non-Formulary Medication 1 ea/ Sodium Chloride 230 ml @ 460 mls/hr DAILY IV Last administered on 02/26/20at 11:00; Start 02/24/20 at 09:00; Stop 02/27/20 at 09:29; Status DC Ondansetron HCl (Zofran) 4 mg PRN Q6HRS PRN IVP NAUSEA/VOMITING Last administered on 02/24/20at 16:15; Start 02/23/20 at 18:45 Sodium Chloride 1,000 ml @ 1,000 mls/hr Q1H PRN IV hypotension; Start 02/25/20 at 13:37; Stop 02/25/20 at 19:36; Status DC Albumin Human 200 ml @ 200 mls/hr 1X PRN PRN IV Hypotension; Start 02/25/20 at 13:45; Stop 02/25/20 at 19:44; Status DC Sodium Chloride 1,000 ml @ 400 mls/hr Q2H30M PRN IV PATENCY; Start 02/25/20 at 13:37; Stop 02/26/20 at 01:36; Status DC Info (PHARMACY MONITORING -- do not chart) 1 each PRN DAILY PRN MC SEE COMMENTS; Start 02/25/20 at 13:45; Status UNV Info (PHARMACY MONITORING -- do not chart) 1 each PRN DAILY PRN MC SEE COMMENTS; Start 02/25/20 at 13:45 Lorazepam (Ativan) 1 mg 1X PRN PO ANXIETY / AGITATION Last administered on 02/26/20at 14:10; Start 02/26/20 at 14:00; Stop 02/26/20 at 14:10; Status DC Sodium Chloride 1,000 ml @ 1,000 mls/hr Q1H PRN IV hypotension; Start 02/27/20 at 07:51; Stop 02/27/20 at 13:50 Albumin Human 200 ml @ 200 mls/hr 1X PRN PRN IV Hypotension; Start 02/27/20 at 08:00; Stop 02/27/20 at 13:59 Sodium Chloride 1,000 ml @ 400 mls/hr Q2H30M PRN IV PATENCY; Start 02/27/20 at 07:51; Stop 02/27/20 at 19:50 Info (PHARMACY MONITORING -- do not chart) 1 each PRN DAILY PRN MC SEE COMMENTS; Start 02/27/20 at 08:00 Active Scripts Active Oxycodone Hcl Immed.release (Oxycodone Hcl) 5 Mg Tablet 1 Tab PO QID Vitamin D2 (Ergocalciferol (Vitamin D2)) 50,000 Unit Capsule 50,000 Unit PO WEEKLY Folbic Tablet (Cyanocobalamin/Fa/Pyridoxine) 1 Each Tablet 1 Tab PO DAILY Calcitriol 0.25 Mcg Capsule 0.25 Mcg PO DAILY Reported Sodium Bicarbonate 650 Mg Tablet 1,300 Mg PO BID Ferrous Sulfate 325 Mg Tablet 325 Mg PO TIDWMEALS Norvasc (Amlodipine Besylate) 10 Mg Tablet 10 Mg PO DAILY08 Vitals/I & O Vital Sign - Last 24 Hours 02/26/20 02/26/20 02/26/20 02/26/20 11:00 12:00 12:00 13:00 Temp 98.0 98.0 Pulse 82 Resp 30 14 B/P (MAP) 146/68 (94) 180/85 (116) 150/72 (98) Pulse Ox 93 88 92 O2 Delivery Nasal Cannula Bi-pap Nasal Cannula Nasal Cannula O2 Flow Rate 5.0 5.0 5.0 02/26/20 02/26/20 02/26/20 02/26/20 14:00 15:00 16:00 16:00 Resp 26 25 B/P (MAP) 133/61 (85) 135/62 (86) Pulse Ox 94 97 95 O2 Delivery Nasal Cannula Nasal Cannula Bi-pap O2 Flow Rate 5.0 5.0 5.0 02/26/20 02/26/20 02/26/20 02/26/20 16:00 17:00 18:00 19:00 Temp 98.0 98.0 Pulse 78 Resp 25 32 16 16 B/P (MAP) 128/62 (84) 145/72 (96) 140/74 (96) 142/78 (99) Pulse Ox 93 92 88 92 O2 Delivery Nasal Cannula Nasal Cannula Nasal Cannula Nasal Cannula O2 Flow Rate 5.0 5.0 5.0 5.0 02/26/20 02/26/20 02/26/20 02/26/20 20:00 20:00 20:00 21:00 Temp 98.5 98.5 Pulse 84 Resp 25 22 B/P (MAP) 141/82 (101) 142/79 (100) Pulse Ox 94 92 O2 Delivery Nasal Cannula Nasal Cannula Nasal Cannula O2 Flow Rate 5.0 5.0 5.0 5.0 02/26/20 02/26/20 02/26/20 02/26/20 22:00 23:00 23:59 23:59 Pulse 85 85 Resp 32 32 B/P (MAP) 166/70 (102) 151/77 (101) Pulse Ox 92 90 O2 Delivery Nasal Cannula Nasal Cannula Nasal Cannula O2 Flow Rate 5.0 5.0 5.0 5.0 02/27/20 02/27/20 02/27/20 02/27/20 00:00 01:00 02:00 03:00 Temp 98.1 98.1 Pulse 79 85 80 82 Resp 34 28 28 24 B/P (MAP) 172/92 (118) 151/75 (100) 151/56 (87) 137/56 (83) Pulse Ox 91 92 93 93 O2 Delivery Nasal Cannula Nasal Cannula Nasal Cannula Nasal Cannula O2 Flow Rate 5.0 5.0 5.0 5.0 02/27/20 02/27/20 02/27/20 02/27/20 04:00 04:00 08:00 08:00 Temp 97.7 97.7 Pulse 76 82 Resp 24 18 B/P (MAP) 142/71 (94) 144/68 (93) Pulse Ox 93 95 O2 Delivery Nasal Cannula Nasal Cannula Nasal Cannula Nasal Cannula O2 Flow Rate 5.0 5.0 5.0 5.0 Intake and Output 02/26/20 02/26/20 02/27/20 15:00 23:00 07:00 Intake Total 400 ml 1380 ml 2204 ml Output Total 250 ml 300 ml 600 ml Balance 150 ml 1080 ml 1604 ml Justicifation of Admission Dx: Justifications for Admission: Justification of Admission Dx: Yes Respiratory Failure: Severe Resp Distress ELINA HENDRICKSON MD Feb 27, 2020 11:01
[2020-02-27] MEDS: methylPREDNISolone SOD SUCC PF 40 MG/ML VIAL. IV SCH ×2 (13:55→21:25)
[2020-02-27] MEDS: NON FORMULARY ITEM 1 EA in IV NORMAL SALINE 250ML 230 ML IV SCH (13:56)
--- NOTE | 2020-02-27 14:15 | NUR ---
SS following up with discharge planning. SS reviewed pt chart and discussed with pt RN. Pt currently on five liters nasal canula. Pt COVID19 positive. Pt's eating improving per pt's RN. Pt will need PT/OT evaluations to assess needs and six minute walk if discharge plan is to home. SS will continue to follow for discharge planning.
[2020-02-27] MEDS: LACTOBACILLUS RHAMNOSUS GG 1 CAPSULE. PO SCH ×2 (15:16→21:25)
[2020-02-27] MEDS: VITAMIN B12,B9,B6 COMPLEX 1 TABLET. PO SCH (15:17)
[2020-02-27] MEDS: amLODIPine BESYLATE 10 MG TABLET PO SCH (15:17)
[2020-02-27] MEDS: MULTIVITAMIN with MINERAL TABLET. PO SCH (15:17)
--- NOTE | 2020-02-27 15:17 | PDOC ---
PULMONARY PROGRESS NOTES Subjective Patient back on BiPAP today awake alert following commands no chest pain no pressure Vitals Vital Signs Date Time Temp Pulse Resp B/P (MAP) Pulse Ox O2 Delivery O2 Flow Rate FiO2 02/27/20 11:02 97.8 80 20 145/65 (91) 95 Nasal Cannula 5.0 97.8 ROS: No Nausea, No Chest Pain, No Abdominal Pain, No Increase Cough General: Alert HEENT: Other Lungs: Clear Cardiovascular: S1, S2 Abdomen: Soft Neuro Exam: Alert Extremities: No Edema Skin: Warm, No Rashes Labs Laboratory Tests Test 02/26/20 11:00 02/27/20 04:50 02/27/20 09:48 02/27/20 12:37 Sodium Level 132 mmol/L (136-145) 131 mmol/L (136-145) Potassium Level 4.4 mmol/L (3.5-5.1) 5.5 mmol/L (3.5-5.1) Chloride Level 95 mmol/L (98-107) 96 mmol/L (98-107) Carbon Dioxide Level 25 mmol/L (21-32) 24 mmol/L (21-32) Anion Gap 12 (6-14) 11 (6-14) Blood Urea Nitrogen 51 mg/dL (7-20) 80 mg/dL (7-20) Creatinine 3.4 mg/dL (0.6-1.0) 4.0 mg/dL (0.6-1.0) Estimated GFR (Cockcroft-Gault) 13.4 11.1 Glucose Level 186 mg/dL (70-99) 143 mg/dL (70-99) Calcium Level 8.1 mg/dL (8.5-10.1) 8.6 mg/dL (8.5-10.1) Phosphorus Level 4.0 mg/dL (2.6-4.7) Albumin 2.2 g/dL (3.4-5.0) Glucose (Fingerstick) 126 mg/dL (70-99) 117 mg/dL (70-99) Laboratory Tests Test 02/27/20 04:50 02/27/20 09:48 02/27/20 12:37 Sodium Level 131 mmol/L (136-145) Potassium Level 5.5 mmol/L (3.5-5.1) Chloride Level 96 mmol/L (98-107) Carbon Dioxide Level 24 mmol/L (21-32) Anion Gap 11 (6-14) Blood Urea Nitrogen 80 mg/dL (7-20) Creatinine 4.0 mg/dL (0.6-1.0) Estimated GFR (Cockcroft-Gault) 11.1 Glucose Level 143 mg/dL (70-99) Calcium Level 8.6 mg/dL (8.5-10.1) Phosphorus Level 4.0 mg/dL (2.6-4.7) Albumin 2.2 g/dL (3.4-5.0) Glucose (Fingerstick) 126 mg/dL (70-99) 117 mg/dL (70-99) Medications Active Scripts Medications Dose Route/Sig Max Daily Dose Days Date Category Oxycodone Hcl Immed.release (Oxycodone Hcl) 5 Mg Tablet 1 Tab PO QID 04/15/18 Rx Sodium Bicarbonate 650 Mg Tablet 1,300 Mg PO BID 06/10/17 Reported Ferrous Sulfate 325 Mg Tablet 325 Mg PO TIDWMEALS 06/10/17 Reported Vitamin D2 (Ergocalciferol (Vitamin D2)) 50,000 Unit Capsule 50,000 Unit PO WEEKLY 12/07/16 Rx Folbic Tablet (Cyanocobalamin/Fa/Pyridoxine) 1 Each Tablet 1 Tab PO DAILY 12/07/16 Rx Calcitriol 0.25 Mcg Capsule 0.25 Mcg PO DAILY 12/07/16 Rx Norvasc (Amlodipine Besylate) 10 Mg Tablet 10 Mg PO DAILY08 09/04/13 Reported Comments cta reviewed 1. There are severe bilateral infiltrates greatest of the lower lobes although variable involvement of the other lobes. 2. There is coronary calcification. 3. Main pulmonary artery dilatation suggests pulmonary hypertension. no central pe Impression . IMPRESSION: 1. Acute hypoxemic respiratory failure secondary COVID-19 viral pneumonia 2. Abnormal chest x-ray. 3. Febrile illness. 4. Pancytopenia. 5. Acute diastolic congestive heart failure. 6. End-stage renal disease, on hemodialysis. 7. SARS-CoV-[address] chest Impression: 1. There are severe bilateral infiltrates greatest of the lower lobes although variable involvement of the other lobes. 2. There is coronary calcification. 3. Main pulmonary artery dilatation suggests pulmonary hypertension. Plan . Continue BiPAP Hemodialysis today Steroids will taper soon Antibiotics per ID Follow cultures Initiate Remdisivir 02/22, spoke with pharmacy and RN DVT GI prophylaxis Total cumulative critical care time of 30 minutes, reviewing data, labs, chest x-ray, and formulating a plan. LYRIC SMART MD Feb 27, 2020 15:17
[2020-02-28] VITALS (19 sets, daily range): BP systolic 118–165; BP diastolic 61–86
[2020-02-28] MEDS: AMINO AC 3%/ELECTROLYTE/GLYCER 1,000 ML IV SCH ×2 (03:22→15:59)
[2020-02-28] MEDS: HEPARIN for SUB-Q USE 5,000 UNIT/ML VIAL. SQ SCH ×3 (05:27→21:34)
--- NOTE | 2020-02-28 07:05 | PDOC ---
PULMONARY PROGRESS NOTES Subjective on bipap 100% fio2, dest when off, feels ok. has occ cough Vitals Vital Signs Date Time Temp Pulse Resp B/P (MAP) Pulse Ox O2 Delivery O2 Flow Rate FiO2 02/28/20 04:31 96 BiPAP/CPAP 02/28/20 04:00 98.6 66 25 122/69 (86) 40.0 98.6 ROS: No Nausea, No Chest Pain, No Abdominal Pain, No Increase Cough General: Alert HEENT: Other Lungs: Clear Cardiovascular: S1, S2 Abdomen: Soft Neuro Exam: Alert Extremities: No Edema Skin: Warm, No Rashes Labs Laboratory Tests Test 02/26/20 11:00 02/27/20 04:50 02/27/20 09:48 02/27/20 12:37 Sodium Level 132 mmol/L (136-145) 131 mmol/L (136-145) Potassium Level 4.4 mmol/L (3.5-5.1) 5.5 mmol/L (3.5-5.1) Chloride Level 95 mmol/L (98-107) 96 mmol/L (98-107) Carbon Dioxide Level 25 mmol/L (21-32) 24 mmol/L (21-32) Anion Gap 12 (6-14) 11 (6-14) Blood Urea Nitrogen 51 mg/dL (-20) 80 mg/dL (-20) Creatinine 3.4 mg/dL (0.6-1.0) 4.0 mg/dL (0.6-1.0) Estimated GFR (Cockcroft-Gault) 13.4 11.1 Glucose Level 186 mg/dL (70-99) 143 mg/dL (70-99) Calcium Level 8.1 mg/dL (8.5-10.1) 8.6 mg/dL (8.5-10.1) Phosphorus Level 4.0 mg/dL (2.6-4.7) Albumin 2.2 g/dL (3.4-5.0) Glucose (Fingerstick) 126 mg/dL (70-99) 117 mg/dL (70-99) Laboratory Tests Test 02/27/20 09:48 02/27/20 12:37 Glucose (Fingerstick) 126 mg/dL (70-99) 117 mg/dL (70-99) Medications Active Scripts Medications Dose Route/Sig Max Daily Dose Days Date Category Oxycodone Hcl Immed.release (Oxycodone Hcl) 5 Mg Tablet 1 Tab PO QID 04/15/18 Rx Sodium Bicarbonate 650 Mg Tablet 1,300 Mg PO BID 06/10/17 Reported Ferrous Sulfate 325 Mg Tablet 325 Mg PO TIDWMEALS 06/10/17 Reported Vitamin D2 (Ergocalciferol (Vitamin D2)) 50,000 Unit Capsule 50,000 Unit PO WEEKLY 12/07/16 Rx Folbic Tablet (Cyanocobalamin/Fa/Pyridoxine) 1 Each Tablet 1 Tab PO DAILY 12/07/16 Rx Calcitriol 0.25 Mcg Capsule 0.25 Mcg PO DAILY 12/07/16 Rx Norvasc (Amlodipine Besylate) 10 Mg Tablet 10 Mg PO DAILY08 09/04/13 Reported Comments cta reviewed 1. There are severe bilateral infiltrates greatest of the lower lobes although variable involvement of the other lobes. 2. There is coronary calcification. 3. Main pulmonary artery dilatation suggests pulmonary hypertension. no central pe Impression . IMPRESSION: 1. Acute hypoxemic respiratory failure secondary COVID-19 viral pneumonia 2. Abnormal chest x-ray. 3. Febrile illness. 4. Pancytopenia. 5. Acute diastolic congestive heart failure. 6. End-stage renal disease, on hemodialysis. 7. SARS-CoV-[address] chest Impression: 1. There are severe bilateral infiltrates greatest of the lower lobes although variable involvement of the other lobes. 2. There is coronary calcification. 3. Main pulmonary artery dilatation suggests pulmonary hypertension. Plan . Continue BiPAP, titrate fio2 to keep sat 90%, monitor closely in icu Hemodialysis per nephro Steroids Antibiotics per ID Follow cultures s/p Remdisivir 02/22, DVT GI prophylaxis discussed w rn critically ill Total cumulative critical care time of 30 minutes, reviewing data, labs, chest x-ray, and formulating a plan. no overlap NATTY ALVARADO MD Feb 28, 2020 07:05
[2020-02-28] MEDS: MULTIVITAMIN with MINERAL TABLET. PO SCH (08:01)
[2020-02-28] MEDS: VITAMIN B12,B9,B6 COMPLEX 1 TABLET. PO SCH (08:01)
[2020-02-28] MEDS: LACTOBACILLUS RHAMNOSUS GG 1 CAPSULE. PO SCH ×2 (08:01→21:33)
[2020-02-28] MEDS: methylPREDNISolone SOD SUCC PF 40 MG/ML VIAL. IV SCH ×2 (08:01→21:33)
[2020-02-28] MEDS: amLODIPine BESYLATE 10 MG TABLET PO SCH (08:01)
--- NOTE | 2020-02-28 08:31 | PDOC ---
Infectious Disease Note Subjective Subjective Low-grade fever last evening, Tmax 100.0 BiPAP 40% ROS ROS as mentioned above Vital Sign Vital Signs Vital Signs Date Time Temp Pulse Resp B/P (MAP) Pulse Ox O2 Delivery O2 Flow Rate FiO2 02/28/20 08:01 68 141/73 02/28/20 07:00 24 97 BiPAP/CPAP 02/28/20 04:00 98.6 40.0 98.6 Physical Exam PHYSICAL EXAM GENERAL: Resting quietly, on BiPAP HEENT: normal conjunctivae NECK: Supple, no JVD. LUNGS: + crackles bases, no accessory muscle use. HEART: S1, S2. regular ABDOMEN: Obese, soft, no guarding. + umbilical hernia. EXTREMITIES: No clubbing, cyanosis or gross edema. SKIN: Warm to touch without signs of rash. Left subclavian central line, 02/26 Labs Lab Laboratory Tests Test 02/27/20 09:48 02/27/20 12:37 Glucose (Fingerstick) 126 mg/dL (70-99) 117 mg/dL (70-99) Objective Assessment COVID-19 viral infection, (02/19) s/p Remdisivir Fever - better Pancytopenia. PENICILLIN ALLERGY. Acute hypoxic respiratory failure, off BiPAP; now on 4.5L Congestive heart failure. Plan Plan of Care Steroids per pulmonary off antibiotics Airborne isolation D/w nursing Critically ill Attending Co-Sign The patient was seen and interviewed as well as examined at the bedside. The chart was reviewed. The case was discussed. Agree with the plan of care. LUCY ROBIN APRN Feb 28, 2020 08:31 CLINTON MONTANO MD Feb 28, 2020 13:03
--- NOTE | 2020-02-28 11:35 | PDOC ---
PROGRESS NOTES Chief Complaint Chief Complaint A/P: Sepsis secondary to COVID-19 PNA COVID-19SARS COV2+ Panycytopenia Acute hypoxic resp failure - on Bipap CKD on HD Acute CHF Elevated troponin HTN urgency Severe protein calorie malnutrition History of Present Illness History of Present Illness Ms Murillo is a 69yo F ESRD on HD, anemia who presented to [facility] on 02/19 with complaints of shortness of air, feeling chills while at dialysis. Noted in ED with a temperature of 103.2. On arrival, she had a white count of 2.8. A chest x-ray was obtained. She had bilateral infiltrates, some rounded areas of density, possible metastatic or nodules in the lungs. Subsequently, underwent a CT angiography of her chest showed there were several bilateral infiltrates, greatest in the lower lobes, although variable involvement of the other lobes and she had pulmonary hypertension. ABG 7.25/59/64, and she had been placed on BiPAP and was given doses of azithromycin and Rocephin as well as steroids. Currently, she is lying in bed. She is feeling more comfortable. She is on BiPAP. She has had a dry cough and a little bit of diarrhea. Plan: COVID 19 positive Cont ICU care. wean 02 as tolerated. still requiring bipap continue remdesevir steroids (solumedrop 40 q12) off abs now dvt ppx: heparin sq FULL CODE CC time 38 minutes Vitals Vitals Vital Signs Date Time Temp Pulse Resp B/P (MAP) Pulse Ox O2 Delivery O2 Flow Rate FiO2 02/28/20 11:18 98 BiPAP/CPAP 02/28/20 11:00 67 20 118/65 (82) 02/28/20 08:00 99.4 99.4 02/28/20 04:00 40.0 Physical Exam Physical Exam GENERAL: Resting quietly, on BiPAP HEENT: normal conjunctivae NECK: Supple, no JVD. LUNGS: + crackles bases, no accessory muscle use. HEART: S1, S2. regular ABDOMEN: Obese, soft, no guarding. + umbilical hernia. EXTREMITIES: No clubbing, cyanosis or gross edema. SKIN: Warm to touch without signs of rash. Left subclavian central line, 02/26 General: Alert, Cooperative, moderate distress Heart: Regular rate, Normal S1, Normal S2 Lungs: Clear Abdomen: Normal bowel sounds, Soft Extremities: No clubbing, No cyanosis Skin: No rashes, No breakdown Labs LABS Laboratory Tests Test 02/27/20 12:37 Glucose (Fingerstick) 117 mg/dL (70-99) Comment Review of Relevant I have reviewed the following items yoel (where applicable) has been applied. Labs Laboratory Tests Test 02/27/20 04:50 02/27/20 09:48 02/27/20 12:37 Sodium Level 131 mmol/L (136-145) Potassium Level 5.5 mmol/L (3.5-5.1) Chloride Level 96 mmol/L (98-107) Carbon Dioxide Level 24 mmol/L (21-32) Anion Gap 11 (6-14) Blood Urea Nitrogen 80 mg/dL (7-20) Creatinine 4.0 mg/dL (0.6-1.0) Estimated GFR (Cockcroft-Gault) 11.1 Glucose Level 143 mg/dL (70-99) Calcium Level 8.6 mg/dL (8.5-10.1) Phosphorus Level 4.0 mg/dL (2.6-4.7) Albumin 2.2 g/dL (3.4-5.0) Glucose (Fingerstick) 126 mg/dL (70-99) 117 mg/dL (70-99) Laboratory Tests Test 02/27/20 12:37 Glucose (Fingerstick) 117 mg/dL (70-99) Medications Current Medications Ceftriaxone Sodium (Rocephin) 1 gm 1X ONCE IVP Last administered on 02/20/20at 19:37; Start 02/20/20 at 19:30; Stop 02/20/20 at 19:31; Status DC Azithromycin 500 mg/Sodium Chloride 250 ml @ 250 mls/hr 1X ONCE IV ; Start 02/20/20 at 19:30; Stop 02/20/20 at 20:29; Status Cancel Acetaminophen (Tylenol) 1,000 mg 1X ONCE PO Last administered on 02/20/20at 19:37; Start 02/20/20 at 19:30; Stop 02/20/20 at 19:31; Status DC Azithromycin 250 ml @ 250 mls/hr 1X ONCE IV Last administered on 02/20/20at 19:37; Start 02/20/20 at 19:30; Stop 02/20/20 at 20:29; Status DC Ondansetron HCl (Zofran) 4 mg PRN Q8HRS PRN IV NAUSEA/VOMITING; Start 02/20/20 at 19:30; Stop 02/21/20 at 19:29; Status DC Iohexol (Omnipaque 350 Mg/ml) 70 ml 1X ONCE IV Last administered on 02/20/20at 22:19; Start 02/20/20 at 20:00; Stop 02/20/20 at 20:01; Status DC Info (CONTRAST GIVEN -- Rx MONITORING) 1 each PRN DAILY PRN MC SEE COMMENTS; Start 02/20/20 at 20:00; Stop 02/22/20 at 19:59; Status DC Hydralazine HCl (Apresoline Inj) 10 mg 1X ONCE IVP Last administered on 02/20/20at 20:39; Start 02/20/20 at 20:00; Stop 02/20/20 at 20:02; Status DC Multivitamins (Thera M Plus) 1 tab DAILY PO Last administered on 02/28/20at 08:01; Start 02/21/20 at 09:00 Furosemide (Lasix) 40 mg 1X ONCE IVP Last administered on 02/20/20at 20:53; Start 02/20/20 at 21:00; Stop 02/20/20 at 21:01; Status DC Methylprednisolone Sodium Succinate (SOLU-Medrol 40MG VIAL) 40 mg STK-MED ONCE .ROUTE ; Start 02/20/20 at 20:56; Stop 02/20/20 at 20:56; Status DC Methylprednisolone Sodium Succinate (SOLU-Medrol 40MG VIAL) 40 mg Q12HR IV Last administered on 02/28/20at 08:01; Start 02/21/20 at 09:00 Methylprednisolone Sodium Succinate (SOLU-Medrol 40MG VIAL) 80 mg 1X ONCE IV Last administered on 02/20/20at 21:07; Start 02/20/20 at 21:15; Stop 02/20/20 at 21:16; Status DC Lorazepam (Ativan Inj) 2 mg STK-MED ONCE .ROUTE ; Start 02/20/20 at 22:32; Stop 02/20/20 at 22:32; Status DC Norepinephrine Bitartrate 8 mg/ Dextrose 258 ml @ 13.719 mls/ hr 1X ONCE IV Last administered on 02/20/20at 23:45; Start 02/20/20 at 23:45; Stop 02/21/20 at 18:33; Status DC Lorazepam (Ativan Inj) 1 mg 1X ONCE IVP Last administered on 02/20/20at 23:45; Start 02/20/20 at 23:45; Stop 02/20/20 at 23:48; Status DC Vancomycin HCl (Vanco Per Pharmacy) 1 each PRN DAILY PRN MC SEE COMMENTS Last administered on 02/24/20at 11:27; Start 02/21/20 at 06:15; Stop 02/24/20 at 11:42; Status DC Cefepime HCl (Maxipime) 1 gm Q24H IVP Last administered on 02/26/20at 06:06; Start 02/21/20 at 06:15; Stop 02/26/20 at 11:51; Status DC Azithromycin 250 ml @ 250 mls/hr 1X ONCE IV Last administered on 02/21/20at 06:42; Start 02/21/20 at 06:30; Stop 02/21/20 at 07:29; Status DC Vancomycin HCl 1.5 gm/Sodium Chloride 500 ml @ 250 mls/hr 1X ONCE IV Last administered on 02/21/20at 13:23; Start 02/21/20 at 06:30; Stop 02/21/20 at 08:30; Status DC Vancomycin HCl (Vancomycin Random Level) 1 each 1X ONCE MC Last administered on 02/23/20at 05:00; Start 02/23/20 at 05:00; Stop 02/23/20 at 05:01; Status DC Dextrose (Dextrose 50%-Water Syringe) 25 gm 1X ONCE IV ; Start 02/21/20 at 10:45; Stop 02/21/20 at 10:57; Status DC Insulin Human Regular (HumuLIN R VIAL) 10 unit 1X ONCE IV ; Start 02/21/20 at 10:45; Stop 02/21/20 at 10:52; Status DC Loperamide HCl (Imodium) 2 mg PRN Q15MIN PRN PO DIARRHEA Last administered on 02/26/20at 10:00; Start 02/21/20 at 18:45 Lorazepam (Ativan Inj) 0.5 mg 1X ONCE IVP Last administered on 02/21/20at 21:32; Start 02/21/20 at 21:15; Stop 02/21/20 at 21:16; Status DC Amlodipine Besylate (Norvasc) 10 mg DAILY08 PO Last administered on 02/28/20at 08:01; Start 02/23/20 at 08:00 Vitamin B Complex (Folbic Tablet) 1 tab DAILY PO Last administered on 02/28/20at 08:01; Start 02/23/20 at 09:00 Heparin Sodium (Porcine) (Heparin Sodium) 5,000 unit Q8HRS SQ Last administered on 02/28/20at 05:27; Start 02/22/20 at 22:00 Acetaminophen (Tylenol) 650 mg PRN Q4HRS PRN PO MILD PAIN / TEMP > 100.3'F Last administered on 02/26/20at 09:37; Start 02/22/20 at 20:45 Amino Acids/ Glycerin/ Electrolytes 1,000 ml @ 80 mls/hr [id number] IV Last administered on 02/28/20at 03:22; Start 02/23/20 at 10:30 Vancomycin HCl 500 mg/Sodium Chloride 100 ml @ 100 mls/hr QMWF IV ; Start 02/25/20 at 16:00; Stop 02/24/20 at 11:42; Status DC Sodium Chloride 1,000 ml @ 1,000 mls/hr Q1H PRN IV hypotension; Start 02/23/20 at 11:48; Stop 02/23/20 at 17:47; Status DC Albumin Human 200 ml @ 200 mls/hr 1X PRN PRN IV Hypotension; Start 02/23/20 at 12:00; Stop 02/23/20 at 17:59; Status DC Sodium Chloride 1,000 ml @ 400 mls/hr Q2H30M PRN IV PATENCY; Start 02/23/20 at 11:48; Stop 02/23/20 at 23:47; Status DC Info (PHARMACY MONITORING -- do not chart) 1 each PRN DAILY PRN MC SEE C OMMENTS; Start 02/23/20 at 12:00; Status UNV Info (PHARMACY MONITORING -- do not chart) 1 each PRN DAILY PRN MC SEE COMMENTS; Start 02/23/20 at 12:00; Stop 02/27/20 at 14:57; Status DC Darbepoetin Jono (ARANESP for DIALYSIS PTS) 60 mcg WEEKLYHS SQ Last administered on 02/23/20at 21:52; Start 02/23/20 at 21:00 Lactobacillus Rhamnosus (Culturelle) 1 cap BID PO Last administered on 02/28/20at 08:01; Start 02/23/20 at 21:00 Non-Formulary Medication 1 ea/ Sodium Chloride 210 ml @ 210 mls/hr 1X ONCE IV Last administered on 02/23/20at 20:51; Start 02/23/20 at 16:00; Stop 02/23/20 at 16:59; Status DC Non-Formulary Medication 1 ea/ Sodium Chloride 230 ml @ 460 mls/hr DAILY IV Last administered on 02/27/20at 13:56; Start 02/24/20 at 09:00; Stop 02/27/20 at 09:29; Status DC Ondansetron HCl (Zofran) 4 mg PRN Q6HRS PRN IVP NAUSEA/VOMITING Last administered on 02/24/20at 16:15; Start 02/23/20 at 18:45 Sodium Chloride 1,000 ml @ 1,000 mls/hr Q1H PRN IV hypotension; Start 02/25/20 at 13:37; Stop 02/25/20 at 19:36; Status DC Albumin Human 200 ml @ 200 mls/hr 1X PRN PRN IV Hypotension; Start 02/25/20 at 13:45; Stop 02/25/20 at 19:44; Status DC Sodium Chloride 1,000 ml @ 400 mls/hr Q2H30M PRN IV PATENCY; Start 02/25/20 at 13:37; Stop 02/26/20 at 01:36; Status DC Info (PHARMACY MONITORING -- do not chart) 1 each PRN DAILY PRN MC SEE COMMENTS; Start 02/25/20 at 13:45; Status UNV Info (PHARMACY MONITORING -- do not chart) 1 each PRN DAILY PRN MC SEE COMMENTS; Start 02/25/20 at 13:45; Stop 02/27/20 at 14:57; Status DC Lorazepam (Ativan) 1 mg 1X PRN PO ANXIETY / AGITATION Last administered on 02/26/20at 14:10; Start 02/26/20 at 14:00; Stop 02/26/20 at 14:10; Status DC Sodium Chloride 1,000 ml @ 1,000 mls/hr Q1H PRN IV hypotension; Start 02/27/20 at 07:51; Stop 02/27/20 at 13:50; Status DC Albumin Human 200 ml @ 200 mls/hr 1X PRN PRN IV Hypotension; Start 02/27/20 at 08:00; Stop 02/27/20 at 13:59; Status DC Sodium Chloride 1,000 ml @ 400 mls/hr Q2H30M PRN IV PATENCY; Start 02/27/20 at 07:51; Stop 02/27/20 at 19:50; Status DC Info (PHARMACY MONITORING -- do not chart) 1 each PRN DAILY PRN MC SEE COMMENTS; Start 02/27/20 at 08:00 Active Scripts Active Oxycodone Hcl Immed.release (Oxycodone Hcl) 5 Mg Tablet 1 Tab PO QID Vitamin D2 (Ergocalciferol (Vitamin D2)) 50,000 Unit Capsule 50,000 Unit PO WEEKLY Folbic Tablet (Cyanocobalamin/Fa/Pyridoxine) 1 Each Tablet 1 Tab PO DAILY Calcitriol 0.25 Mcg Capsule 0.25 Mcg PO DAILY Reported Sodium Bicarbonate 650 Mg Tablet 1,300 Mg PO BID Ferrous Sulfate 325 Mg Tablet 325 Mg PO TIDWMEALS Norvasc (Amlodipine Besylate) 10 Mg Tablet 10 Mg PO DAILY08 Vitals/I & O Vital Sign - Last 24 Hours 02/27/20 02/27/20 02/27/20 02/27/20 15:17 16:00 20:00 20:00 Temp 100.0 100.0 Pulse 69 72 78 Resp 24 24 B/P (MAP) 150/69 133/69 (90) 155/75 (101) Pulse Ox 98 96 O2 Delivery BiPAP/CPAP Bi-pap BiPAP/CPAP 02/28/20 02/28/20 02/28/20 02/28/20 00:01 00:20 04:00 04:31 Temp 98.7 98.6 98.7 98.6 Pulse 68 66 Resp 26 25 B/P (MAP) 148/81 (103) 122/69 (86) Pulse Ox 98 96 97 96 O2 Delivery BiPAP/CPAP BiPAP/CPAP BiPAP/CPAP BiPAP/CPAP O2 Flow Rate 40.0 02/28/20 02/28/20 02/28/20 02/28/20 07:00 08:00 08:00 08:01 Temp 99.4 99.4 Pulse 64 73 68 Resp 24 20 B/P (MAP) 142/76 (98) 136/72 (93) 141/73 Pulse Ox 97 98 O2 Delivery BiPAP/CPAP BiPAP/CPAP Bi-pap 02/28/20 02/28/20 02/28/20 02/28/20 09:00 09:10 10:00 11:00 Pulse 61 63 67 Resp 22 20 20 B/P (MAP) 142/74 (96) 137/69 (91) 118/65 (82) Pulse Ox 97 98 98 99 O2 Delivery BiPAP/CPAP BiPAP/CPAP BiPAP/CPAP BiPAP/CPAP 02/28/20 11:18 Pulse Ox 98 O2 Delivery BiPAP/CPAP Intake and Output 02/27/20 02/27/20 02/28/20 15:00 23:00 07:00 Intake Total 300 ml 50 ml Output Total 150 ml 200 ml Balance 300 ml -150 ml -150 ml Justicifation of Admission Dx: Justifications for Admission: Justification of Admission Dx: Yes Respiratory Failure: Severe Resp Distress ELINA HENDRICKSON MD Feb 28, 2020 11:35
[2020-02-28] MEDS: LOPERAMIDE 2 MG CAPSULE PO PRN ×2 (12:39→18:24)
--- NOTE | 2020-02-28 17:50 | NUR ---
RECEIVED REPORT FROM LEWIS GAYLE AT 1400 TODAY. PT RESTED IN ROOM IN BIPAP BUT NOW ON 5L NC. PT TAKING IN GOOD PO AND PROGRESSING TOWARDS GOALS.
[2020-02-29] VITALS (23 sets, daily range): BP systolic 119–164; BP diastolic 50–90
[2020-02-29] MEDS: AMINO AC 3%/ELECTROLYTE/GLYCER 1,000 ML IV SCH (03:40)
[2020-02-29] MEDS: HEPARIN for SUB-Q USE 5,000 UNIT/ML VIAL. SQ SCH ×3 (05:42→21:27)
--- NOTE | 2020-02-29 07:19 | PDOC ---
PULMONARY PROGRESS NOTES Subjective on 5 lpm didnt use bipap overnight sob cough better Vitals Vital Signs Date Time Temp Pulse Resp B/P (MAP) Pulse Ox O2 Delivery O2 Flow Rate FiO2 02/29/20 06:00 75 21 135/73 (93) 92 Nasal Cannula 5.0 02/29/20 04:00 98.7 98.7 ROS: No Nausea, No Chest Pain, No Abdominal Pain, No Increase Cough General: Alert HEENT: Other Lungs: Clear Cardiovascular: S1, S2 Abdomen: Soft Neuro Exam: Alert Extremities: No Edema Skin: Warm, No Rashes Labs Laboratory Tests Test 02/27/20 09:48 02/27/20 12:37 Glucose (Fingerstick) 126 mg/dL (70-99) 117 mg/dL (70-99) Medications Active Scripts Medications Dose Route/Sig Max Daily Dose Days Date Category Oxycodone Hcl Immed.release (Oxycodone Hcl) 5 Mg Tablet 1 Tab PO QID 04/15/18 Rx Sodium Bicarbonate 650 Mg Tablet 1,300 Mg PO BID 06/10/17 Reported Ferrous Sulfate 325 Mg Tablet 325 Mg PO TIDWMEALS 06/10/17 Reported Vitamin D2 (Ergocalciferol (Vitamin D2)) 50,000 Unit Capsule 50,000 Unit PO WEEKLY 12/07/16 Rx Folbic Tablet (Cyanocobalamin/Fa/Pyridoxine) 1 Each Tablet 1 Tab PO DAILY 12/07/16 Rx Calcitriol 0.25 Mcg Capsule 0.25 Mcg PO DAILY 12/07/16 Rx Norvasc (Amlodipine Besylate) 10 Mg Tablet 10 Mg PO DAILY08 09/04/13 Reported Comments cta reviewed 1. There are severe bilateral infiltrates greatest of the lower lobes although variable involvement of the other lobes. 2. There is coronary calcification. 3. Main pulmonary artery dilatation suggests pulmonary hypertension. no central pe Impression . IMPRESSION: 1. Acute hypoxemic respiratory failure secondary COVID-19 viral pneumonia.. oxygenation improved 2. Abnormal chest x-ray. 3. Febrile illness. 4. Pancytopenia. 5. Acute diastolic congestive heart failure. 6. End-stage renal disease, on hemodialysis. 7. SARS-CoV-[address] chest Impression: 1. There are severe bilateral infiltrates greatest of the lower lobes although variable involvement of the other lobes. 2. There is coronary calcification. 3. Main pulmonary artery dilatation suggests pulmonary hypertension. Plan . titrate fio2 to keep sat 90% Continue BiPAP prn, setting reviewed Hemodialysis per nephro cont Steroids Antibiotics per ID Follow cultures s/p Remdisivir 02/22, DVT GI prophylaxis discussed w NATTY Figueroa MD Feb 29, 2020 07:19
--- NOTE | 2020-02-29 08:19 | PDOC ---
Infectious Disease Note Subjective Subjective on 5L O2 Feeling better over-all No fevers last 24 hrs Denies increase SOA/cough/chills/N/V/D ROS ROS as mentioned above Vital Sign Vital Signs Vital Signs Date Time Temp Pulse Resp B/P (MAP) Pulse Ox O2 Delivery O2 Flow Rate FiO2 02/29/20 07:00 26 131/50 (77) 95 Nasal Cannula 5.0 02/29/20 06:00 75 02/29/20 04:00 98.7 98.7 Physical Exam PHYSICAL EXAM GENERAL: Propped up in bed, alert and watching TV HEENT: Pupils equal, Oral cavity clear NECK: Supple, no JVD. LUNGS: + crackles bases, no accessory muscle use. HEART: S1, S2. regular ABDOMEN: Obese, soft, no guarding. + umbilical hernia. EXTREMITIES: No clubbing, cyanosis or gross edema. SCDs bilaterally SKIN: Warm to touch without signs of rash. SUPPLY AIDE: Alert, answers questions appropriately Left subclavian central line, 02/26 without signs of complications Objective Assessment COVID-19 viral infection, (02/19) s/p Remdisivir Fever - better Pancytopenia. PENICILLIN ALLERGY. Acute hypoxic respiratory failure, off BiPAP; Congestive heart failure. Plan Plan of Care Steroids per pulmonary off antibiotics Airborne isolation D/w nursing Critically ill - improving Attending Co-Sign The patient was seen and interviewed as well as examined at the bedside. The chart was reviewed. The case was discussed. Agree with the plan of care. LUCY ROBIN APRN Feb 29, 2020 08:19 CLINTON MONTANO MD Feb 29, 2020 10:22
[2020-02-29] MEDS: LOPERAMIDE 2 MG CAPSULE PO PRN ×4 (08:55→21:26)
[2020-02-29] MEDS: VITAMIN B12,B9,B6 COMPLEX 1 TABLET. PO SCH ×2 (08:55→14:33)
[2020-02-29] MEDS: methylPREDNISolone SOD SUCC PF 40 MG/ML VIAL. IV SCH ×2 (08:55→21:26)
[2020-02-29] MEDS: LACTOBACILLUS RHAMNOSUS GG 1 CAPSULE. PO SCH ×2 (08:55→21:26)
[2020-02-29] MEDS: amLODIPine BESYLATE 10 MG TABLET PO SCH (08:56)
[2020-02-29] MEDS: MULTIVITAMIN with MINERAL TABLET. PO SCH (09:00)
--- NOTE | 2020-02-29 10:54 | PDOC ---
PROGRESS NOTES Chief Complaint Chief Complaint A/P: Sepsis secondary to COVID-19 PNA COVID-19SARS COV2+ Panycytopenia Acute hypoxic resp failure CKD on HD Acute CHF Elevated troponin HTN urgency Severe protein calorie malnutrition History of Present Illness History of Present Illness Ms Murillo is a 69yo F ESRD on HD, anemia who presented to [facility] on 02/19 with complaints of shortness of air, feeling chills while at dialysis. Noted in ED with a temperature of 103.2. On arrival, she had a white count of 2.8. A chest x-ray was obtained. She had bilateral infiltrates, some rounded areas of density, possible metastatic or nodules in the lungs. Subsequently, underwent a CT angiography of her chest showed there were several bilateral infiltrates, greatest in the lower lobes, although variable involvement of the other lobes and she had pulmonary hypertension. ABG 7.25/59/64, and she had been placed on BiPAP and was given doses of azithromycin and Rocephin as well as steroids. Currently, she is lying in bed. She is feeling more comfortable. She is on BiPAP. She has had a dry cough and a little bit of diarrhea. PLAN COVID 19 positive currently on 5 liters. did not use bipap last night continue steroids (solumedrop 40 q12) s/p remdesevir off abs now HD per nephro dvt ppx: heparin sq FULL CODE okay to transfer to floor Vitals Vitals Vital Signs Date Time Temp Pulse Resp B/P (MAP) Pulse Ox O2 Delivery O2 Flow Rate FiO2 02/29/20 09:00 97.8 74 141/69 (93) 96 Nasal Cannula 5.0 97.8 02/29/20 07:00 26 Physical Exam Physical Exam GENERAL: Propped up in bed, alert and watching TV HEENT: Pupils equal, Oral cavity clear NECK: Supple, no JVD. LUNGS: + crackles bases, no accessory muscle use. HEART: S1, S2. regular ABDOMEN: Obese, soft, no guarding. + umbilical hernia. EXTREMITIES: No clubbing, cyanosis or gross edema. SCDs bilaterally SKIN: Warm to touch without signs of rash. SENIOR SOUS CHEF: Alert, answers questions appropriately Left subclavian central line, 02/26 without signs of complications General: Alert, Cooperative, moderate distress Heart: Regular rate, Normal S1, Normal S2 Lungs: Clear Abdomen: Normal bowel sounds, Soft Extremities: No clubbing, No cyanosis Skin: No rashes, No breakdown Comment Review of Relevant I have reviewed the following items yoel (where applicable) has been applied. Labs Laboratory Tests Test 02/27/20 12:37 Glucose (Fingerstick) 117 mg/dL (70-99) Medications Current Medications Ceftriaxone Sodium (Rocephin) 1 gm 1X ONCE IVP Last administered on 02/20/20at 19:37; Start 02/20/20 at 19:30; Stop 02/20/20 at 19:31; Status DC Azithromycin 500 mg/Sodium Chloride 250 ml @ 250 mls/hr 1X ONCE IV ; Start 02/20/20 at 19:30; Stop 02/20/20 at 20:29; Status Cancel Acetaminophen (Tylenol) 1,000 mg 1X ONCE PO Last administered on 02/20/20at 19:37; Start 02/20/20 at 19:30; Stop 02/20/20 at 19:31; Status DC Azithromycin 250 ml @ 250 mls/hr 1X ONCE IV Last administered on 02/20/20at 19:37; Start 02/20/20 at 19:30; Stop 02/20/20 at 20:29; Status DC Ondansetron HCl (Zofran) 4 mg PRN Q8HRS PRN IV NAUSEA/VOMITING; Start 02/20/20 at 19:30; Stop 02/21/20 at 19:29; Status DC Iohexol (Omnipaque 350 Mg/ml) 70 ml 1X ONCE IV Last administered on 02/20/20at 22:19; Start 02/20/20 at 20:00; Stop 02/20/20 at 20:01; Status DC Info (CONTRAST GIVEN -- Rx MONITORING) 1 each PRN DAILY PRN MC SEE COMMENTS; Start 02/20/20 at 20:00; Stop 02/22/20 at 19:59; Status DC Hydralazine HCl (Apresoline Inj) 10 mg 1X ONCE IVP Last administered on 02/20/20at 20:39; Start 02/20/20 at 20:00; Stop 02/20/20 at 20:02; Status DC Multivitamins (Thera M Plus) 1 tab DAILY PO Last administered on 02/28/20at 08:01; Start 02/21/20 at 09:00 Furosemide (Lasix) 40 mg 1X ONCE IVP Last administered on 02/20/20at 20:53; Start 02/20/20 at 21:00; Stop 02/20/20 at 21:01; Status DC Methylprednisolone Sodium Succinate (SOLU-Medrol 40MG VIAL) 40 mg STK-MED ONCE .ROUTE ; Start 02/20/20 at 20:56; Stop 02/20/20 at 20:56; Status DC Methylprednisolone Sodium Succinate (SOLU-Medrol 40MG VIAL) 40 mg Q12HR IV Last administered on 02/29/20at 08:55; Start 02/21/20 at 09:00 Methylprednisolone Sodium Succinate (SOLU-Medrol 40MG VIAL) 80 mg 1X ONCE IV Last administered on 02/20/20at 21:07; Start 02/20/20 at 21:15; Stop 02/20/20 at 21:16; Status DC Lorazepam (Ativan Inj) 2 mg STK-MED ONCE .ROUTE ; Start 02/20/20 at 22:32; Stop 02/20/20 at 22:32; Status DC Norepinephrine Bitartrate 8 mg/ Dextrose 258 ml @ 13.719 mls/ hr 1X ONCE IV Last administered on 02/20/20at 23:45; Start 02/20/20 at 23:45; Stop 02/21/20 at 18:33; Status DC Lorazepam (Ativan Inj) 1 mg 1X ONCE IVP Last administered on 02/20/20at 23:45; Start 02/20/20 at 23:45; Stop 02/20/20 at 23:48; Status DC Vancomycin HCl (Vanco Per Pharmacy) 1 each PRN DAILY PRN MC SEE COMMENTS Last administered on 02/24/20at 11:27; Start 02/21/20 at 06:15; Stop 02/24/20 at 11:42; Status DC Cefepime HCl (Maxipime) 1 gm Q24H IVP Last administered on 02/26/20at 06:06; Start 02/21/20 at 06:15; Stop 02/26/20 at 11:51; Status DC Azithromycin 250 ml @ 250 mls/hr 1X ONCE IV Last administered on 02/21/20at 06:42; Start 02/21/20 at 06:30; Stop 02/21/20 at 07:29; Status DC Vancomycin HCl 1.5 gm/Sodium Chloride 500 ml @ 250 mls/hr 1X ONCE IV Last administered on 02/21/20at 13:23; Start 02/21/20 at 06:30; Stop 02/21/20 at 08:30; Status DC Vancomycin HCl (Vancomycin Random Level) 1 each 1X ONCE MC Last administered on 02/23/20at 05:00; Start 02/23/20 at 05:00; Stop 02/23/20 at 05:01; Status DC Dextrose (Dextrose 50%-Water Syringe) 25 gm 1X ONCE IV ; Start 02/21/20 at 10:45; Stop 02/21/20 at 10:57; Status DC Insulin Human Regular (HumuLIN R VIAL) 10 unit 1X ONCE IV ; Start 02/21/20 at 10:45; Stop 02/21/20 at 10:52; Status DC Loperamide HCl (Imodium) 2 mg PRN Q15MIN PRN PO DIARRHEA Last administered on 02/29/20at 08:55; Start 02/21/20 at 18:45 Lorazepam (Ativan Inj) 0.5 mg 1X ONCE IVP Last administered on 02/21/20at 21:32; Start 02/21/20 at 21:15; Stop 02/21/20 at 21:16; Status DC Amlodipine Besylate (Norvasc) 10 mg DAILY08 PO Last administered on 02/29/20at 08:56; Start 02/23/20 at 08:00 Vitamin B Complex (Folbic Tablet) 1 tab DAILY PO Last administered on 02/29/20at 08:55; Start 02/23/20 at 09:00 Heparin Sodium (Porcine) (Heparin Sodium) 5,000 unit Q8HRS SQ Last administered on 02/29/20at 05:42; Start 02/22/20 at 22:00 Acetaminophen (Tylenol) 650 mg PRN Q4HRS PRN PO MILD PAIN / TEMP > 100.3'F Last administered on 02/26/20at 09:37; Start 02/22/20 at 20:45 Amino Acids/ Glycerin/ Electrolytes 1,000 ml @ 80 mls/hr [id number] IV Last administered on 02/29/20at 03:40; Start 02/23/20 at 10:30; Stop 02/29/20 at 10:12; Status DC Vancomycin HCl 500 mg/Sodium Chloride 100 ml @ 100 mls/hr QMWF IV ; Start 02/25/20 at 16:00; Stop 02/24/20 at 11:42; Status DC Sodium Chloride 1,000 ml @ 1,000 mls/hr Q1H PRN IV hypotension; Start 02/23/20 at 11:48; Stop 02/23/20 at 17:47; Status DC Albumin Human 200 ml @ 200 mls/hr 1X PRN PRN IV Hypotension; Start 02/23/20 at 12:00; Stop 02/23/20 at 17:59; Status DC Sodium Chloride 1,000 ml @ 400 mls/hr Q2H30M PRN IV PATENCY; Start 02/23/20 at 11:48; Stop 02/23/20 at 23:47; Status DC Info (PHARMACY MONITORING -- do not chart) 1 each PRN DAILY PRN MC SEE COMMENTS; Start 02/23/20 at 12:00; Status UNV Info (PHARMACY MONITORING -- do not chart) 1 each PRN DAILY PRN MC SEE COMMENTS; Start 02/23/20 at 12:00; Stop 02/27/20 at 14:57; Status DC Darbepoetin Jono (ARANESP for DIALYSIS PTS) 60 mcg WEEKLYHS SQ Last administered on 02/23/20at 21:52; Start 02/23/20 at 21:00 Lactobacillus Rhamnosus (Culturelle) 1 cap BID PO Last administered on 02/29/20at 08:55; Start 02/23/20 at 21:00 Non-Formulary Medication 1 ea/ Sodium Chloride 210 ml @ 210 mls/hr 1X ONCE IV Last administered on 02/23/20at 20:51; Start 02/23/20 at 16:00; Stop 02/23/20 at 16:59; Status DC Non-Formulary Medication 1 ea/ Sodium Chloride 230 ml @ 460 mls/hr DAILY IV Last administered on 02/27/20at 13:56; Start 02/24/20 at 09:00; Stop 02/27/20 at 09:29; Status DC Ondansetron HCl (Zofran) 4 mg PRN Q6HRS PRN IVP NAUSEA/VOMITING Last administered on 02/24/20at 16:15; Start 02/23/20 at 18:45 Sodium Chloride 1,000 ml @ 1,000 mls/hr Q1H PRN IV hypotension; Start 02/25/20 at 13:37; Stop 02/25/20 at 19:36; Status DC Albumin Human 200 ml @ 200 mls/hr 1X PRN PRN IV Hypotension; Start 02/25/20 at 13:45; Stop 02/25/20 at 19:44; Status DC Sodium Chloride 1,000 ml @ 400 mls/hr Q2H30M PRN IV PATENCY; Start 02/25/20 at 13:37; Stop 02/26/20 at 01:36; Status DC Info (PHARMACY MONITORING -- do not chart) 1 each PRN DAILY PRN MC SEE COMMENTS; Start 02/25/20 at 13:45; Status UNV Info (PHARMACY MONITORING -- do not chart) 1 each PRN DAILY PRN MC SEE COMMENTS; Start 02/25/20 at 13:45; Stop 02/27/20 at 14:57; Status DC Lorazepam (Ativan) 1 mg 1X PRN PO ANXIETY / AGITATION Last administered on 02/26/20at 14:10; Start 02/26/20 at 14:00; Stop 02/26/20 at 14:10; Status DC Sodium Chloride 1,000 ml @ 1,000 mls/hr Q1H PRN IV hypotension; Start 02/27/20 at 07:51; Stop 02/27/20 at 13:50; Status DC Albumin Human 200 ml @ 200 mls/hr 1X PRN PRN IV Hypotension; Start 02/27/20 at 08:00; Stop 02/27/20 at 13:59; Status DC Sodium Chloride 1,000 ml @ 400 mls/hr Q2H30M PRN IV PATENCY; Start 02/27/20 at 07:51; Stop 02/27/20 at 19:50; Status DC Info (PHARMACY MONITORING -- do not chart) 1 each PRN DAILY PRN MC SEE COMMENTS; Start 02/27/20 at 08:00 Active Scripts Active Oxycodone Hcl Immed.release (Oxycodone Hcl) 5 Mg Tablet 1 Tab PO QID Vitamin D2 (Ergocalciferol (Vitamin D2)) 50,000 Unit Capsule 50,000 Unit PO WEEKLY Folbic Tablet (Cyanocobalamin/Fa/Pyridoxine) 1 Each Tablet 1 Tab PO DAILY Calcitriol 0.25 Mcg Capsule 0.25 Mcg PO DAILY Reported Sodium Bicarbonate 650 Mg Tablet 1,300 Mg PO BID Ferrous Sulfate 325 Mg Tablet 325 Mg PO TIDWMEALS Norvasc (Amlodipine Besylate) 10 Mg Tablet 10 Mg PO DAILY08 Vitals/I & O Vital Sign - Last 24 Hours 02/28/20 02/28/20 02/28/20 02/28/20 11:00 11:18 12:00 12:00 Temp 99.0 99.0 Pulse 67 75 Resp 18 B/P (MAP) 118/65 (82) 121/63 (82) Pulse Ox 99 98 95 O2 Delivery BiPAP/CPAP BiPAP/CPAP BiPAP/CPAP Bi-pap 02/28/20 02/28/20 02/28/20 02/28/20 13:00 14:00 15:06 16:06 Temp 99.0 99.0 99.0 99.0 Pulse 85 71 82 Resp 22 B/P (MAP) 151/78 (102) 132/67 (88) 126/70 (88) Pulse Ox 94 97 97 99 O2 Delivery Nasal Cannula BiPAP/CPAP Nasal Cannula BiPAP/CPAP O2 Flow Rate 6.0 6.0 02/28/20 02/28/20 02/28/20 02/28/20 16:20 17:00 18:00 19:00 Temp 98.9 98.9 98.9 98.9 98.9 98.9 Pulse 82 82 82 82 Resp B/P (MAP) 121/65 (83) 128/69 (88) 143/79 (100) 128/69 (88) Pulse Ox 99 95 92 95 O2 Delivery BiPAP/CPAP Nasal Cannula Room Air Nasal Cannula O2 Flow Rate 5.0 5.0 5.0 02/28/20 02/28/20 02/28/20 02/28/20 20:00 20:00 21:00 22:00 Pulse 75 86 90 Resp 26 B/P (MAP) 124/65 (84) 125/61 (82) 165/86 (112) Pulse Ox 100 94 94 O2 Delivery Bi-pap Nasal Cannula Nasal Cannula Nasal Cannula O2 Flow Rate 5.0 5.0 5.0 02/28/20 02/29/20 02/29/20 02/29/20 23:00 00:00 00:00 01:00 Temp 98.6 98.6 Pulse 91 75 70 Resp B/P (MAP) 152/72 (98) 146/75 (98) 136/71 (92) Pulse Ox 94 96 97 O2 Delivery Nasal Cannula Nasal Cannula Nasal Cannula Nasal Cannula O2 Flow Rate 5.0 5.0 5.0 5.0 02/29/20 02/29/20 02/29/20 02/29/20 02:00 03:00 04:00 04:00 Temp 98.7 98.7 Pulse 91 72 69 Resp B/P (MAP) 138/68 (91) 119/68 (85) 134/68 (90) Pulse Ox 96 98 97 O2 Delivery Nasal Cannula Nasal Cannula Nasal Cannula Nasal Cannula O2 Flow Rate 5.0 5.0 5.0 5.0 02/29/20 02/29/20 02/29/20 02/29/20 05:00 06:00 07:00 08:00 Pulse 65 75 78 Resp B/P (MAP) 128/64 (85) 135/73 (93) 131/50 (77) 140/67 (91) Pulse Ox 98 92 95 96 O2 Delivery Nasal Cannula Nasal Cannula Nasal Cannula Nasal Cannula O2 Flow Rate 5.0 5.0 5.0 5.0 02/29/20 02/29/20 02/29/20 02/29/20 08:00 08:41 08:56 09:00 Temp 97.8 97.8 Pulse 75 74 B/P (MAP) 131/50 141/69 (93) Pulse Ox 98 96 O2 Delivery Bi-pap Nasal Cannula Nasal Cannula O2 Flow Rate 5.0 5.0 Intake and Output 02/28/20 02/28/20 02/29/20 15:00 23:00 07:00 Intake Total 60 ml 800 ml 960 ml Output Total 550 ml Balance -490 ml 800 ml 960 ml Justicifation of Admission Dx: Justifications for Admission: Justification of Admission Dx: Yes Respiratory Failure: Severe Resp Distress ELINA HENDRICKSON MD Feb 29, 2020 10:54
[2020-02-29] MEDS: ACETAMINOPHEN 325 MG TABLET. PO PRN (15:31)
[2020-03-01] VITALS (14 sets, daily range): BP systolic 124–171; BP diastolic 54–84
[2020-03-01] MEDS: HEPARIN for SUB-Q USE 5,000 UNIT/ML VIAL. SQ SCH ×3 (05:43→20:54)
[2020-03-01 06:11] LABS: BASO % 0 % (0-3); EOS % 0 % (0-3); HEMATOCRIT 25.5 % (36.0-47.0); HEMOGLOBIN 8.4 g/dL (12.0-15.5); LYMPH # 0.3 x10^3/uL (1.0-4.8); LYMPH % 3 % (24-48); MEAN CORPUSCULAR HEMOGLOBIN 31 pg (25-35); MEAN CORPUSCULAR HGB CONC 33 g/dL (31-37); MEAN CORPUSCULAR VOLUME 94 fL (79-100); MONO # 0.4 x10^3/uL (0.0-1.1); MONO % 3 % (0-9); NEUT # 10.5 x10^3/uL (1.8-7.7); NEUT % 93 % (31-73); PLATELET COUNT 217 x10^3/uL (140-400); RED CELL DISTRIBUTION WIDTH 15.7 % (11.5-14.5); WHITE BLOOD COUNT 11.2 x10^3/uL (4.0-11.0)
[2020-03-01 06:47] LABS: ALBUMIN/GLOBULIN RATIO 0.6 (1.0-1.7); CALCIUM 8.4 mg/dL (8.5-10.1); CREATININE 4.8 mg/dL (0.6-1.0); POTASSIUM 5.4 mmol/L (3.5-5.1); TOTAL BILIRUBIN 0.3 mg/dL (0.2-1.0); TOTAL PROTEIN 5.2 g/dL (6.4-8.2)
[2020-03-01] MEDS: LACTOBACILLUS RHAMNOSUS GG 1 CAPSULE. PO SCH ×2 (08:08→20:09)
[2020-03-01] MEDS: MULTIVITAMIN with MINERAL TABLET. PO SCH (08:08)
[2020-03-01] MEDS: LOPERAMIDE 2 MG CAPSULE PO PRN ×2 (08:08→11:24)
[2020-03-01] MEDS: amLODIPine BESYLATE 10 MG TABLET PO SCH (08:09)
[2020-03-01] MEDS: methylPREDNISolone SOD SUCC PF 40 MG/ML VIAL. IV SCH (08:10)
--- NOTE | 2020-03-01 08:47 | PDOC ---
Infectious Disease Note Subjective: Subjective Feeling better No fevers last 24 hrs on 5L O2 Denies F/N/V/D Vital Signs: Vital Signs Vital Signs Date Time Temp Pulse Resp B/P (MAP) Pulse Ox O2 Delivery O2 Flow Rate FiO2 03/01/20 08:09 69 124/54 03/01/20 07:45 97 Nasal Cannula 5.0 03/01/20 06:00 18 03/01/20 04:00 98.6 98.6 Physical Exam: PHYSICAL EXAM GENERAL: Propped up in bed, alert and watching TV HEENT: Pupils equal, Oral cavity clear NECK: Supple, no JVD. LUNGS: + crackles bases, no accessory muscle use. HEART: S1, S2. regular ABDOMEN: Obese, soft, no guarding. + umbilical hernia. EXTREMITIES: No clubbing, cyanosis or gross edema. SCDs bilaterally SKIN: Warm to touch without signs of rash. DIRECTOR STARS: Alert, answers questions appropriately Left subclavian central line, 02/26 without signs of complications Medications: Inpatient Meds: Current Medications Medications (Trade) Dose Ordered Sig/Rebecca Start Time Stop Time Status Last Admin Dose Admin Acetaminophen (Tylenol) 650 mg PRN Q4HRS PRN 02/22/20 20:45 02/29/20 15:31 650 MG Albumin Human 200 ml @ 200 mls/hr 1X PRN PRN 02/27/20 08:00 02/27/20 13:59 DC Amino Acids/ Glycerin/ Electrolytes 1,000 ml @ 80 mls/hr [id number] 02/23/20 10:30 02/29/20 10:12 DC 02/29/20 03:40 80 MLS/HR Amlodipine Besylate (Norvasc) 10 mg DAILY08 02/23/20 08:00 03/01/20 08:09 10 MG Azithromycin 250 ml @ 250 mls/hr 1X ONCE 02/21/20 06:30 02/21/20 07:29 DC 02/21/20 06:42 250 MLS/HR Azithromycin 500 mg/Sodium Chloride 250 ml @ 250 mls/hr 1X ONCE 02/20/20 19:30 02/20/20 20:29 Cancel Cefepime HCl (Maxipime) 1 gm Q24H 02/21/20 06:15 02/26/20 11:51 DC 7/16/20 06:06 1 GM Ceftriaxone Sodium (Rocephin) 1 gm 1X ONCE 02/20/20 19:30 02/20/20 19:31 DC 02/20/20 19:37 1 GM Darbepoetin Jono (ARANESP for DIALYSIS PTS) 60 mcg WEEKLYHS 02/23/20 21:00 02/23/20 21:52 60 MCG Dextrose (Dextrose 50%-Water Syringe) 25 gm 1X ONCE 02/21/20 10:45 02/21/20 10:57 DC Furosemide (Lasix) 40 mg 1X ONCE 02/20/20 21:00 02/20/20 21:01 DC 02/20/20 20:53 40 MG Heparin Sodium (Porcine) (Heparin Sodium) 5,000 unit Q8HRS 02/22/20 22:00 03/01/20 05:43 5,000 UNIT Hydralazine HCl (Apresoline Inj) 10 mg 1X ONCE 02/20/20 20:00 02/20/20 20:02 DC 02/20/20 20:39 10 MG Info (CONTRAST GIVEN -- Rx MONITORING) 1 each PRN DAILY PRN 02/20/20 20:00 02/22/20 19:59 DC Info (PHARMACY MONITORING -- do not chart) 1 each PRN DAILY PRN 02/27/20 08:00 Insulin Human Regular (HumuLIN R VIAL) 10 unit 1X ONCE 02/21/20 10:45 02/21/20 10:52 DC Iohexol (Omnipaque 350 Mg/ml) 70 ml 1X ONCE 02/20/20 20:00 02/20/20 20:01 DC 02/20/20 22:19 70 ML Lactobacillus Rhamnosus (Culturelle) 1 cap BID 02/23/20 21:00 03/01/20 08:08 1 CAP Loperamide HCl (Imodium) 2 mg PRN Q15MIN PRN 02/21/20 18:45 03/01/20 08:08 2 MG Lorazepam (Ativan Inj) 0.5 mg 1X ONCE 02/21/20 21:15 02/21/20 21:16 DC 02/21/20 21:32 0.5 MG Lorazepam (Ativan) 1 mg 1X PRN 02/26/20 14:00 02/26/20 14:10 DC 02/26/20 14:10 1 MG Methylprednisolone Sodium Succinate (SOLU-Medrol 40MG VIAL) 80 mg 1X ONCE 02/20/20 21:15 02/20/20 21:16 DC 02/20/20 21:07 80 MG Multivitamins (Thera M Plus) 1 tab DAILY 02/21/20 09:00 03/01/20 08:08 1 TAB Non-Formulary Medication 1 ea/ Sodium Chloride 230 ml @ 460 mls/hr DAILY 02/24/20 09:00 02/27/20 09:29 DC 02/27/20 13:56 460 MLS/HR Norepinephrine Bitartrate 8 mg/ Dextrose 258 ml @ 13.719 mls/ hr 1X ONCE 02/20/20 23:45 02/21/20 18:33 DC 02/20/20 23:45 13.1 MLS/HR Ondansetron HCl (Zofran) 4 mg PRN Q6HRS PRN 02/23/20 18:45 02/24/20 16:15 4 MG Sodium Chloride 1,000 ml @ 400 mls/hr Q2H30M PRN 02/27/20 07:51 02/27/20 19:50 DC Vancomycin HCl (Vanco Per Pharmacy) 1 each PRN DAILY PRN 02/21/20 06:15 02/24/20 11:42 DC 02/24/20 11:27 1 EACH Vancomycin HCl (Vancomycin Random Level) 1 each 1X ONCE 02/23/20 05:00 02/23/20 05:01 DC 02/23/20 05:00 1 EACH Vancomycin HCl 1.5 gm/Sodium Chloride 500 ml @ 250 mls/hr 1X ONCE 02/21/20 06:30 02/21/20 08:30 DC 02/21/20 13:23 250 MLS/HR Vancomycin HCl 500 mg/Sodium Chloride 100 ml @ 100 mls/hr QMWF 02/25/20 16:00 02/24/20 11:42 DC Vitamin B Complex (Folbic Tablet) 1 tab DAILY 02/23/20 09:00 02/29/20 14:33 1 TAB Labs: Lab Laboratory Tests Test 03/01/20 05:30 White Blood Count 11.2 x10^3/uL (4.0-11.0) Red Blood Count 2.70 x10^6/uL (3.50-5.40) Hemoglobin 8.4 g/dL (12.0-15.5) Hematocrit 25.5 % (36.0-47.0) Mean Corpuscular Volume 94 fL (79-100) Mean Corpuscular Hemoglobin 31 pg (25-35) Mean Corpuscular Hemoglobin Concent 33 g/dL (31-37) Red Cell Distribution Width 15.7 % (11.5-14.5) Platelet Count 217 x10^3/uL (140-400) Neutrophils (%) (Auto) 93 % (31-73) Lymphocytes (%) (Auto) 3 % (24-48) Monocytes (%) (Auto) 3 % (0-9) Eosinophils (%) (Auto) 0 % (0-3) Basophils (%) (Auto) 0 % (0-3) Neutrophils # (Auto) 10.5 x10^3/uL (1.8-7.7) Lymphocytes # (Auto) 0.3 x10^3/uL (1.0-4.8) Monocytes # (Auto) 0.4 x10^3/uL (0.0-1.1) Eosinophils # (Auto) 0.0 x10^3/uL (0.0-0.7) Basophils # (Auto) 0.0 x10^3/uL (0.0-0.2) Sodium Level 133 mmol/L (136-145) Potassium Level 5.4 mmol/L (3.5-5.1) Chloride Level 97 mmol/L (98-107) Carbon Dioxide Level 23 mmol/L (21-32) Anion Gap 13 (6-14) Blood Urea Nitrogen 129 mg/dL (7-20) Creatinine 4.8 mg/dL (0.6-1.0) Estimated GFR (Cockcroft-Gault) 9.0 BUN/Creatinine Ratio 27 (6-20) Glucose Level 148 mg/dL (70-99) Calcium Level 8.4 mg/dL (8.5-10.1) Total Bilirubin 0.3 mg/dL (0.2-1.0) Aspartate Amino Transf (AST/SGOT) 23 U/L (15-37) Alanine Aminotransferase (ALT/SGPT) 22 U/L (14-59) Alkaline Phosphatase 76 U/L (46-116) Total Protein 5.2 g/dL (6.4-8.2) Albumin 2.0 g/dL (3.4-5.0) Albumin/Globulin Ratio 0.6 (1.0-1.7) Objective: Assessment: COVID-19 viral infection, (02/19) s/p Remdisivir Fever - better Pancytopenia. PENICILLIN ALLERGY. Acute hypoxic respiratory failure, off BiPAP; Congestive heart failure. Plan: Plan of Care Steroids per pulmonary off antibiotics Airborne isolation D/w nursing TAMEKA MONTANO MD Mar 01, 2020 08:47
[2020-03-01 10:30] LABS: % LYMPHS 4 % (24-48); % MONOS 3 % (0-10); % SEGS 93 % (35-66); PLT ESTIMATE ADEQUATE (ADEQUATE)
[2020-03-01] MEDS ORDERED: IV NORMAL SALINE 1000ML BAG 1,000 ML IV PRN ×2 (11:23)
[2020-03-01] MEDS ORDERED: ALBUMIN HUMAN 25% 200 ML IV PRN (11:30)
[2020-03-01] MEDS ORDERED: DIALYSIS PATIENT. MC PRN ×2 (11:30)
[2020-03-01] MEDS ORDERED: diphenhydrAMINE 50 MG/ML VIAL IV PRN (11:30)
--- NOTE | 2020-03-01 13:39 | PDOC ---
[employer] PROGRESS NOTE Chief Complaint Chief Complaint Sepsis secondary to COVID-19 PNA COVID-19SARS COV2+ Panycytopenia Acute hypoxic resp failure CKD on HD Acute CHF Elevated troponin HTN urgency Severe protein calorie malnutrition History of Present Illness History of Present Illness 03/01/2020 Patient seen and examined in the COVID-19 ICU Chart reviewed Discussed with RN Ms Murillo is a 69yo F ESRD on HD, anemia who [facility] with complaints of shortness of air, feeling chills while at dialysis. Noted in ED with a temperature of 103.2. On arrival, she had a white count of 2.8. A chest x-ray was obtained. She had bilateral infiltrates, some rounded areas of density, possible metastatic or nodules in the lungs. Subsequently, underwent a CT angiography of her chest showed there were several bilateral infiltrates, greatest in the lower lobes, although variable involvement of the other lobes and she had pulmonary hypertension. ABG 7.25/59/64, and she had been placed on BiPAP and was given doses of azithromycin and Rocephin as well as steroids. Currently, she is lying in bed. She is feeling more comfortable. She is on BiPAP. She has had a dry cough and a little bit of diarrhea. Vitals/I&O Vitals/I&O: Vital Signs Date Time Temp Pulse Resp B/P (MAP) Pulse Ox O2 Delivery O2 Flow Rate FiO2 03/01/20 10:00 70 16 98 Nasal Cannula 5.0 03/01/20 09:00 97.9 97.9 I & O 02/29/20 02/29/20 03/01/20 15:00 23:00 07:00 Intake Total 870 ml 50 ml Output Total 176 ml 102 ml 0 ml Balance 694 ml -52 ml 0 ml Physical Exam Physical Exam: GENERAL: Propped up in bed, alert and watching TV HEENT: Pupils equal, Oral cavity clear NECK: Supple, no JVD. LUNGS: + crackles bases, no accessory muscle use. HEART: S1, S2. regular ABDOMEN: Obese, soft, no guarding. + umbilical hernia. EXTREMITIES: No clubbing, cyanosis or gross edema. SCDs bilaterally SKIN: Warm to touch without signs of rash. R D ENGINEER: Alert, answers questions appropriately Left subclavian central line, 02/26 without signs of complications General: Alert, Cooperative, moderate distress Heart: Regular rate, Normal S1, Normal S2 Lungs: Clear Abdomen: Normal bowel sounds, Soft Extremities: No clubbing, No cyanosis Skin: No rashes, No breakdown Labs Labs: Laboratory Tests Test 03/01/20 05:30 White Blood Count 11.2 x10^3/uL (4.0-11.0) Red Blood Count 2.70 x10^6/uL (3.50-5.40) Hemoglobin 8.4 g/dL (12.0-15.5) Hematocrit 25.5 % (36.0-47.0) Mean Corpuscular Volume 94 fL (79-100) Mean Corpuscular Hemoglobin 31 pg (25-35) Mean Corpuscular Hemoglobin Concent 33 g/dL (31-37) Red Cell Distribution Width 15.7 % (11.5-14.5) Platelet Count 217 x10^3/uL (140-400) Neutrophils (%) (Auto) 93 % (31-73) Lymphocytes (%) (Auto) 3 % (24-48) Monocytes (%) (Auto) 3 % (0-9) Eosinophils (%) (Auto) 0 % (0-3) Basophils (%) (Auto) 0 % (0-3) Neutrophils # (Auto) 10.5 x10^3/uL (1.8-7.7) Lymphocytes # (Auto) 0.3 x10^3/uL (1.0-4.8) Monocytes # (Auto) 0.4 x10^3/uL (0.0-1.1) Eosinophils # (Auto) 0.0 x10^3/uL (0.0-0.7) Basophils # (Auto) 0.0 x10^3/uL (0.0-0.2) Segmented Neutrophils % 93 % (35-66) Lymphocytes % 4 % (24-48) Monocytes % 3 % (0-10) Platelet Estimate Adequate (ADEQUATE) Sodium Level 133 mmol/L (136-145) Potassium Level 5.4 mmol/L (3.5-5.1) Chloride Level 97 mmol/L (98-107) Carbon Dioxide Level 23 mmol/L (21-32) Anion Gap 13 (6-14) Blood Urea Nitrogen 129 mg/dL (7-20) Creatinine 4.8 mg/dL (0.6-1.0) Estimated GFR (Cockcroft-Gault) 9.0 BUN/Creatinine Ratio 27 (6-20) Glucose Level 148 mg/dL (70-99) Calcium Level 8.4 mg/dL (8.5-10.1) Total Bilirubin 0.3 mg/dL (0.2-1.0) Aspartate Amino Transf (AST/SGOT) 23 U/L (15-37) Alanine Aminotransferase (ALT/SGPT) 22 U/L (14-59) Alkaline Phosphatase 76 U/L (46-116) Total Protein 5.2 g/dL (6.4-8.2) Albumin 2.0 g/dL (3.4-5.0) Albumin/Globulin Ratio 0.6 (1.0-1.7) Assessment and Plan Assessmemt and Plan Sepsis secondary to COVID-19 PNA COVID-19SARS COV2+ Panycytopenia Acute hypoxic resp failure CKD on HD Acute CHF Elevated troponin HTN urgency Severe protein calorie malnutrition Plan IV steroids Remdesivir completed Multiple vitamins Trend labs Duo nebs Dialysis Sunday Home meds DVT prophylaxis Full code Patient subspecialist input Comment Review of Relevant I have reviewed the following items yoel (where applicable) has been applied. Justicifation of Admission Dx: Justifications for Admission: Justification of Admission Dx: Yes Respiratory Failure: Severe Resp Distress ALICIA FLORENCE III DO Mar 01, 2020 13:39
[2020-03-01] MEDS: ACETAMINOPHEN 325 MG TABLET. PO PRN (13:48)
--- NOTE | 2020-03-01 14:13 | NUR ---
SS following up with discharge planning. SS reviewed pt chart and discussed with pt RN. Pt COVID19 positive. Pt currently requiring oxygen at 5 liters. Pt needing PT/OT to assess needs. SS will continue to follow for discharge planning.
--- NOTE | 2020-03-01 14:49 | PDOC ---
Renal-Progress Notes Subjective Notes Notes FEELS WELL History of Present Illness Hx of present illness STABLE Vitals Vitals Vital Signs Date Time Temp Pulse Resp B/P (MAP) Pulse Ox O2 Delivery O2 Flow Rate FiO2 03/01/20 12:00 98.4 88 25 160/75 (103) Nasal Cannula 5.0 98.4 03/01/20 10:00 98 Weight Weight [ ] I.O. Intake and Output Intake and Output 03/01/20 07:00 Intake Total 920 ml Output Total 278 ml Balance 642 ml Intake Oral 770 ml IV Total 150 ml Output Urine Total 275 ml Stool Total 3 ml # Voids 1 # Bowel Movements 2 Labs Labs Laboratory Tests Test 03/01/20 05:30 White Blood Count 11.2 x10^3/uL (4.0-11.0) Red Blood Count 2.70 x10^6/uL (3.50-5.40) Hemoglobin 8.4 g/dL (12.0-15.5) Hematocrit 25.5 % (36.0-47.0) Mean Corpuscular Volume 94 fL (79-100) Mean Corpuscular Hemoglobin 31 pg (25-35) Mean Corpuscular Hemoglobin Concent 33 g/dL (31-37) Red Cell Distribution Width 15.7 % (11.5-14.5) Platelet Count 217 x10^3/uL (140-400) Neutrophils (%) (Auto) 93 % (31-73) Lymphocytes (%) (Auto) 3 % (24-48) Monocytes (%) (Auto) 3 % (0-9) Eosinophils (%) (Auto) 0 % (0-3) Basophils (%) (Auto) 0 % (0-3) Neutrophils # (Auto) 10.5 x10^3/uL (1.8-7.7) Lymphocytes # (Auto) 0.3 x10^3/uL (1.0-4.8) Monocytes # (Auto) 0.4 x10^3/uL (0.0-1.1) Eosinophils # (Auto) 0.0 x10^3/uL (0.0-0.7) Basophils # (Auto) 0.0 x10^3/uL (0.0-0.2) Segmented Neutrophils % 93 % (35-66) Lymphocytes % 4 % (24-48) Monocytes % 3 % (0-10) Platelet Estimate Adequate (ADEQUATE) Sodium Level 133 mmol/L (136-145) Potassium Level 5.4 mmol/L (3.5-5.1) Chloride Level 97 mmol/L (98-107) Carbon Dioxide Level 23 mmol/L (21-32) Anion Gap 13 (6-14) Blood Urea Nitrogen 129 mg/dL (7-20) Creatinine 4.8 mg/dL (0.6-1.0) Estimated GFR (Cockcroft-Gault) 9.0 BUN/Creatinine Ratio 27 (6-20) Glucose Level 148 mg/dL (70-99) Calcium Level 8.4 mg/dL (8.5-10.1) Total Bilirubin 0.3 mg/dL (0.2-1.0) Aspartate Amino Transf (AST/SGOT) 23 U/L (15-37) Alanine Aminotransferase (ALT/SGPT) 22 U/L (14-59) Alkaline Phosphatase 76 U/L (46-116) Total Protein 5.2 g/dL (6.4-8.2) Albumin 2.0 g/dL (3.4-5.0) Albumin/Globulin Ratio 0.6 (1.0-1.7) Review of Systems Constitutional: yes: weakness, alert, oriented Ears/Nose/Throat: Yes: no symptom reported Eyes: Yes: no symptom reported Cardiovascular: Yes no symptom reported Gastrointestional: Yes: constipation Genitourinary: Yes: no symptom reported Musculoskeletal: Yes: muscle stiffness Skin: Yes no symptom reported Endocrine: Yes: no symptom reported Physical Exam General Appearance: no apparent distress Skin: warm Respiratory: bilateral CTA Heart: S1S2 Abdomen: soft, bowel sounds present Genitourinary: bladder flat Neurology: alert, oriented Musculoskeletal: Osteoarthritis, Other Assessment Assessment IMP ESRD COVID POS ACUTE RESP FAILURE ANEMIA PLAN HD TODAY UF TO DW SUPPORTIVE CARE WILL FOLLOW LIONEL BRAGA MD Mar 01, 2020 14:49
--- NOTE | 2020-03-01 14:56 | PDOC ---
PULMONARY PROGRESS NOTES Subjective Patient feels much better off of BiPAP on oxygen Vitals Vital Signs Date Time Temp Pulse Resp B/P (MAP) Pulse Ox O2 Delivery O2 Flow Rate FiO2 03/01/20 12:00 98.4 88 25 160/75 (103) Nasal Cannula 5.0 98.4 03/01/20 10:00 98 ROS: No Nausea, No Chest Pain, No Abdominal Pain, No Increase Cough General: Alert HEENT: Other Lungs: Clear Cardiovascular: S1, S2 Abdomen: Soft Neuro Exam: Alert Extremities: No Edema Skin: Warm, No Rashes Labs Laboratory Tests Test 03/01/20 05:30 White Blood Count 11.2 x10^3/uL (4.0-11.0) Red Blood Count 2.70 x10^6/uL (3.50-5.40) Hemoglobin 8.4 g/dL (12.0-15.5) Hematocrit 25.5 % (36.0-47.0) Mean Corpuscular Volume 94 fL (79-100) Mean Corpuscular Hemoglobin 31 pg (25-35) Mean Corpuscular Hemoglobin Concent 33 g/dL (31-37) Red Cell Distribution Width 15.7 % (11.5-14.5) Platelet Count 217 x10^3/uL (140-400) Neutrophils (%) (Auto) 93 % (31-73) Lymphocytes (%) (Auto) 3 % (24-48) Monocytes (%) (Auto) 3 % (0-9) Eosinophils (%) (Auto) 0 % (0-3) Basophils (%) (Auto) 0 % (0-3) Neutrophils # (Auto) 10.5 x10^3/uL (1.8-7.7) Lymphocytes # (Auto) 0.3 x10^3/uL (1.0-4.8) Monocytes # (Auto) 0.4 x10^3/uL (0.0-1.1) Eosinophils # (Auto) 0.0 x10^3/uL (0.0-0.7) Basophils # (Auto) 0.0 x10^3/uL (0.0-0.2) Segmented Neutrophils % 93 % (35-66) Lymphocytes % 4 % (24-48) Monocytes % 3 % (0-10) Platelet Estimate Adequate (ADEQUATE) Sodium Level 133 mmol/L (136-145) Potassium Level 5.4 mmol/L (3.5-5.1) Chloride Level 97 mmol/L (98-107) Carbon Dioxide Level 23 mmol/L (21-32) Anion Gap 13 (6-14) Blood Urea Nitrogen 129 mg/dL (7-20) Creatinine 4.8 mg/dL (0.6-1.0) Estimated GFR (Cockcroft-Gault) 9.0 BUN/Creatinine Ratio 27 (6-20) Glucose Level 148 mg/dL (70-99) Calcium Level 8.4 mg/dL (8.5-10.1) Total Bilirubin 0.3 mg/dL (0.2-1.0) Aspartate Amino Transf (AST/SGOT) 23 U/L (15-37) Alanine Aminotransferase (ALT/SGPT) 22 U/L (14-59) Alkaline Phosphatase 76 U/L (46-116) Total Protein 5.2 g/dL (6.4-8.2) Albumin 2.0 g/dL (3.4-5.0) Albumin/Globulin Ratio 0.6 (1.0-1.7) Laboratory Tests Test 03/01/20 05:30 White Blood Count 11.2 x10^3/uL (4.0-11.0) Red Blood Count 2.70 x10^6/uL (3.50-5.40) Hemoglobin 8.4 g/dL (12.0-15.5) Hematocrit 25.5 % (36.0-47.0) Mean Corpuscular Volume 94 fL (79-100) Mean Corpuscular Hemoglobin 31 pg (25-35) Mean Corpuscular Hemoglobin Concent 33 g/dL (31-37) Red Cell Distribution Width 15.7 % (11.5-14.5) Platelet Count 217 x10^3/uL (140-400) Neutrophils (%) (Auto) 93 % (31-73) Lymphocytes (%) (Auto) 3 % (24-48) Monocytes (%) (Auto) 3 % (0-9) Eosinophils (%) (Auto) 0 % (0-3) Basophils (%) (Auto) 0 % (0-3) Neutrophils # (Auto) 10.5 x10^3/uL (1.8-7.7) Lymphocytes # (Auto) 0.3 x10^3/uL (1.0-4.8) Monocytes # (Auto) 0.4 x10^3/uL (0.0-1.1) Eosinophils # (Auto) 0.0 x10^3/uL (0.0-0.7) Basophils # (Auto) 0.0 x10^3/uL (0.0-0.2) Segmented Neutrophils % 93 % (35-66) Lymphocytes % 4 % (24-48) Monocytes % 3 % (0-10) Platelet Estimate Adequate (ADEQUATE) Sodium Level 133 mmol/L (136-145) Potassium Level 5.4 mmol/L (3.5-5.1) Chloride Level 97 mmol/L (98-107) Carbon Dioxide Level 23 mmol/L (21-32) Anion Gap 13 (6-14) Blood Urea Nitrogen 129 mg/dL (7-20) Creatinine 4.8 mg/dL (0.6-1.0) Estimated GFR (Cockcroft-Gault) 9.0 BUN/Creatinine Ratio 27 (6-20) Glucose Level 148 mg/dL (70-99) Calcium Level 8.4 mg/dL (8.5-10.1) Total Bilirubin 0.3 mg/dL (0.2-1.0) Aspartate Amino Transf (AST/SGOT) 23 U/L (15-37) Alanine Aminotransferase (ALT/SGPT) 22 U/L (14-59) Alkaline Phosphatase 76 U/L (46-116) Total Protein 5.2 g/dL (6.4-8.2) Albumin 2.0 g/dL (3.4-5.0) Albumin/Globulin Ratio 0.6 (1.0-1.7) Medications Active Scripts Medications Dose Route/Sig Max Daily Dose Days Date Category Oxycodone Hcl Immed.release (Oxycodone Hcl) 5 Mg Tablet 1 Tab PO QID 04/15/18 Rx Sodium Bicarbonate 650 Mg Tablet 1,300 Mg PO BID 06/10/17 Reported Ferrous Sulfate 325 Mg Tablet 325 Mg PO TIDWMEALS 06/10/17 Reported Vitamin D2 (Ergocalciferol (Vitamin D2)) 50,000 Unit Capsule 50,000 Unit PO WEEKLY 12/07/16 Rx Folbic Tablet (Cyanocobalamin/Fa/Pyridoxine) 1 Each Tablet 1 Tab PO DAILY 12/07/16 Rx Calcitriol 0.25 Mcg Capsule 0.25 Mcg PO DAILY 12/07/16 Rx Norvasc (Amlodipine Besylate) 10 Mg Tablet 10 Mg PO DAILY08 09/04/13 Reported Comments cta reviewed 1. There are severe bilateral infiltrates greatest of the lower lobes although variable involvement of the other lobes. 2. There is coronary calcification. 3. Main pulmonary artery dilatation suggests pulmonary hypertension. no central pe Impression . IMPRESSION: 1. Acute hypoxemic respiratory failure secondary COVID-19 viral pneumonia.. oxygenation improved 2. Abnormal chest x-ray. 3. Febrile illness. 4. Pancytopenia. 5. Acute diastolic congestive heart failure. 6. End-stage renal disease, on hemodialysis. 7. SARS-CoV-[address] chest Impression: 1. There are severe bilateral infiltrates greatest of the lower lobes although variable involvement of the other lobes. 2. There is coronary calcification. 3. Main pulmonary artery dilatation suggests pulmonary hypertension. Plan . Transfer out of the ICU Oxygen supplementation Hemodialysis per nephro cont Steroids, will decrease Antibiotics per ID Follow cultures s/p Remdisivir 02/22, DVT GI prophylaxis discussed w LYRIC Sofia MD Mar 01, 2020 14:56
[2020-03-01] MEDS: DARBEPOETIN ALFA 60 MCG/0.3 ML DISP.SYRIN. SQ SCH (20:09)
[2020-03-02] VITALS: BP 126/61
[2020-03-02 04:00] VITALS: BP 117/60
[2020-03-02] MEDS: HEPARIN for SUB-Q USE 5,000 UNIT/ML VIAL. SQ SCH ×3 (05:39→21:07)
[2020-03-02 08:00] VITALS: BP 144/71
--- NOTE | 2020-03-02 08:04 | PDOC ---
Infectious Disease Note Subjective: Subjective Feeling better No fevers last 24 hrs down to 2L O2 Denies F/N/V/D Vital Signs: Vital Signs Vital Signs Date Time Temp Pulse Resp B/P (MAP) Pulse Ox O2 Delivery O2 Flow Rate FiO2 03/02/20 04:27 98 Nasal Cannula 2.0 03/02/20 04:00 98.0 74 16 117/60 (79) 98.0 Physical Exam: PHYSICAL EXAM GENERAL: Propped up in bed, alert and watching TV HEENT: Pupils equal, Oral cavity clear NECK: Supple, no JVD. LUNGS: + crackles bases, no accessory muscle use. HEART: S1, S2. regular ABDOMEN: Obese, soft, no guarding. + umbilical hernia. EXTREMITIES: No clubbing, cyanosis or gross edema. SCDs bilaterally SKIN: Warm to touch without signs of rash. 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 appropriately Left subclavian central line, 02/26 without signs of complications Medications: Inpatient Meds: Current Medications Medications (Trade) Dose Ordered Sig/Rebecca Start Time Stop Time Status Last Admin Dose Admin Acetaminophen (Tylenol) 650 mg PRN Q4HRS PRN 02/22/20 20:45 03/01/20 13:48 650 MG Albumin Human 200 ml @ 200 mls/hr 1X PRN PRN 03/01/20 11:30 03/01/20 17:29 DC Amino Acids/ Glycerin/ Electrolytes 1,000 ml @ 80 mls/hr [id number] 02/23/20 10:30 02/29/20 10:12 DC 02/29/20 03:40 80 MLS/HR Amlodipine Besylate (Norvasc) 10 mg DAILY08 02/23/20 08:00 03/01/20 08:09 10 MG Azithromycin 250 ml @ 250 mls/hr 1X ONCE 02/21/20 06:30 02/21/20 07:29 DC 02/21/20 06:42 250 MLS/HR Azithromycin 500 mg/Sodium Chloride 250 ml @ 250 mls/hr 1X ONCE 02/20/20 19:30 02/20/20 20:29 Cancel Cefepime HCl (Maxipime) 1 gm Q24H 02/21/20 06:15 02/26/20 11:51 DC 02/26/20 06:06 1 GM Ceftriaxone Sodium (Rocephin) 1 gm 1X ONCE 02/20/20 19:30 02/20/20 19:31 DC 02/20/20 19:37 1 GM Darbepoetin Jono (ARANESP for DIALYSIS PTS) 60 mcg WEEKLYHS 02/23/20 21:00 03/01/20 20:09 60 MCG Dextrose (Dextrose 50%-Water Syringe) 25 gm 1X ONCE 02/21/20 10:45 02/21/20 10:57 DC Diphenhydramine HCl (Benadryl) 25 mg 1X PRN PRN 03/01/20 11:30 03/02/20 11:29 Furosemide (Lasix) 40 mg 1X ONCE 02/20/20 21:00 02/20/20 21:01 DC 02/20/20 20:53 40 MG Heparin Sodium (Porcine) (Heparin Sodium) 5,000 unit Q8HRS 02/22/20 22:00 03/02/20 05:39 5,000 UNIT Hydralazine HCl (Apresoline Inj) 10 mg 1X ONCE 02/20/20 20:00 02/20/20 20:02 DC 02/20/20 20:39 10 MG Info (CONTRAST GIVEN -- Rx MONITORING) 1 each PRN DAILY PRN 02/20/20 20:00 02/22/20 19:59 DC Info (PHARMACY MONITORING -- do not chart) 1 each PRN DAILY PRN 03/01/20 11:30 Insulin Human Regular (HumuLIN R VIAL) 10 unit 1X ONCE 02/21/20 10:45 02/21/20 10:52 DC Iohexol (Omnipaque 350 Mg/ml) 70 ml 1X ONCE 02/20/20 20:00 02/20/20 20:01 DC 02/20/20 22:19 70 ML Lactobacillus Rhamnosus (Culturelle) 1 cap BID 02/23/20 21:00 03/01/20 20:09 1 CAP Loperamide HCl (Imodium) 2 mg PRN Q15MIN PRN 02/21/20 18:45 03/01/20 11:24 2 MG Lorazepam (Ativan Inj) 0.5 mg 1X ONCE 02/21/20 21:15 02/21/20 21:16 DC 02/21/20 21:32 0.5 MG Lorazepam (Ativan) 1 mg 1X PRN 02/26/20 14:00 02/26/20 14:10 DC 02/26/20 14:10 1 MG Methylprednisolone Sodium Succinate (SOLU-Medrol 40MG VIAL) 40 mg DAILY 03/02/20 09:00 Multivitamins (Thera M Plus) 1 tab DAILY 02/21/20 09:00 03/01/20 08:08 1 TAB Non-Formulary Medication 1 ea/ Sodium Chloride 230 ml @ 460 mls/hr DAILY 02/24/20 09:00 02/27/20 09:29 DC 02/27/20 13:56 460 MLS/HR Norepinephrine Bitartrate 8 mg/ Dextrose 258 ml @ 13.719 mls/ hr 1X ONCE 02/20/20 23:45 02/21/20 18:33 DC 02/20/20 23:45 13.1 MLS/HR Ondansetron HCl (Zofran) 4 mg PRN Q6HRS PRN 02/23/20 18:45 02/24/20 16:15 4 MG Sodium Chloride 1,000 ml @ 400 mls/hr Q2H30M PRN 03/01/20 11:23 03/01/20 23:22 DC Vancomycin HCl (Vanco Per Pharmacy) 1 each PRN DAILY PRN 02/21/20 06:15 02/24/20 11:42 DC 02/24/20 11:27 1 EACH Vancomycin HCl (Vancomycin Random Level) 1 each 1X ONCE 02/23/20 05:00 02/23/20 05:01 DC 02/23/20 05:00 1 EACH Vancomycin HCl 1.5 gm/Sodium Chloride 500 ml @ 250 mls/hr 1X ONCE 02/21/20 06:30 02/21/20 08:30 DC 02/21/20 13:23 250 MLS/HR Vancomycin HCl 500 mg/Sodium Chloride 100 ml @ 100 mls/hr QMWF 02/25/20 16:00 02/24/20 11:42 DC Vitamin B Complex (Folbic Tablet) 1 tab DAILY 02/23/20 09:00 02/29/20 14:33 1 TAB Objective: Assessment: COVID-19 viral infection, (02/19) s/p Remdisivir Fever - better Pancytopenia.,now leucocytosis likely from steroids PENICILLIN ALLERGY. Acute hypoxic respiratory failure, off BiPAP; Congestive heart failure. Plan: Plan of Care Steroids per pulmonary off antibiotics Airborne isolation D/w nursing TAMEKA MONTANO MD Mar 02, 2020 08:04
[2020-03-02] MEDS: MULTIVITAMIN with MINERAL TABLET. PO SCH (08:34)
[2020-03-02] MEDS: amLODIPine BESYLATE 10 MG TABLET PO SCH (08:35)
[2020-03-02] MEDS: LACTOBACILLUS RHAMNOSUS GG 1 CAPSULE. PO SCH ×2 (08:35→21:07)
[2020-03-02] MEDS: VITAMIN B12,B9,B6 COMPLEX 1 TABLET. PO SCH (08:35)
[2020-03-02] MEDS: methylPREDNISolone SOD SUCC PF 40 MG/ML VIAL. IV SCH (08:35)
[2020-03-02] MEDS: LOPERAMIDE 2 MG CAPSULE PO PRN ×3 (08:35→17:29)
--- NOTE | 2020-03-02 11:19 | PDOC ---
Renal-Progress Notes Subjective Notes Notes NO NEW COMPLAINTS History of Present Illness Hx of present illness STABLE Vitals Vitals Vital Signs Date Time Temp Pulse Resp B/P (MAP) Pulse Ox O2 Delivery O2 Flow Rate FiO2 03/02/20 08:35 72 123/57 03/02/20 08:15 Nasal Cannula 2.0 03/02/20 08:00 98.3 23 95 98.3 Weight Weight [ ] I.O. Intake and Output Intake and Output 03/02/20 07:00 Intake Total 975 ml Output Total 565 ml Balance 410 ml Intake Oral 975 ml Output Urine Total 565 ml # Bowel Movements 1 Review of Systems Constitutional: yes: weakness, alert, oriented Ears/Nose/Throat: Yes: no symptom reported Eyes: Yes: no symptom reported Cardiovascular: Yes no symptom reported Gastrointestional: Yes: constipation Genitourinary: Yes: no symptom reported Musculoskeletal: Yes: muscle stiffness Skin: Yes no symptom reported Endocrine: Yes: no symptom reported Physical Exam General Appearance: no apparent distress Skin: warm Respiratory: bilateral CTA Heart: S1S2 Abdomen: soft, bowel sounds present Genitourinary: bladder flat Neurology: alert, oriented Musculoskeletal: Osteoarthritis, Other Assessment Assessment IMP ESRD COVID POS ACUTE RESP FAILURE ANEMIA PLAN HD TOMORROW SUPPORTIVE CARE WILL FOLLOW LIONEL BRAGA MD Mar 02, 2020 11:19
--- NOTE | 2020-03-02 11:59 | NUR ---
SS following up with discharge planning. SS reviewed pt chart and discussed with pt RN. Pt is currently requiring oxygen. COVID19 positive. Pt on PO medications and eating well. Pt will receive dialysis at [facility] due to COVID positive. Pt will need PT/OT evaluation to assess needs for discharge planning. If discharging to home pt will need six minute walk. Pt's RN notified. SS will continue to follow for discharge planning.
[2020-03-02 12:00] VITALS: BP 140/73
--- NOTE | 2020-03-02 13:17 | PDOC ---
[employer] PROGRESS NOTE Chief Complaint Chief Complaint Sepsis secondary to COVID-19 PNA COVID-19SARS COV2+ Panycytopenia Acute hypoxic resp failure CKD on HD Acute CHF Elevated troponin HTN urgency Severe protein calorie malnutrition History of Present Illness History of Present Illness 03/02/2020 Patient seen and examined She is still in the COVID-19 ICU Chart reviewed Discussed with RN 03/01/2020 Patient seen and examined in the [facility] ICU Chart reviewed Discussed with RN Ms Murillo is a 69yo F ESRD on HD, anemia who presented to [facility] on 02/19 with complaints of shortness of air, feeling chills while at dialysis. Noted in ED with a temperature of 103.2. On arrival, she had a white count of 2.8. A chest x-ray was obtained. She had bilateral infiltrates, some rounded areas of density, possible metastatic or nodules in the lungs. Subsequently, underwent a CT angiography of her chest showed there were several bilateral infiltrates, greatest in the lower lobes, although variable involvement of the other lobes and she had pulmonary hypertension. ABG 7.25/59/64, and she had been placed on BiPAP and was given doses of azithromycin and Rocephin as well as steroids. Currently, she is lying in bed. She is feeling more comfortable. She is on BiPAP. She has had a dry cough and a little bit of diarrhea. Vitals/I&O Vitals/I&O: Vital Signs Date Time Temp Pulse Resp B/P (MAP) Pulse Ox O2 Delivery O2 Flow Rate FiO2 03/02/20 12:00 98.8 85 25 140/73 (95) 96 Nasal Cannula 2.0 98.8 I & O 03/01/20 03/01/20 03/02/20 15:00 23:00 07:00 Intake Total 350 ml 525 ml 100 ml Output Total 215 ml 150 ml 200 ml Balance 135 ml 375 ml -100 ml Physical Exam Physical Exam: GENERAL: Propped up in bed, alert and watching TV HEENT: Pupils equal, Oral cavity clear NECK: Supple, no JVD. LUNGS: + crackles bases, no accessory muscle use. HEART: S1, S2. regular ABDOMEN: Obese, soft, no guarding. + umbilical hernia. EXTREMITIES: No clubbing, cyanosis or gross edema. SCDs bilaterally SKIN: Warm to touch without signs of rash. 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 Left subclavian central line, 02/26 without signs of complications General: Alert, Cooperative, moderate distress Heart: Regular rate, Normal S1, Normal S2 Lungs: Clear Abdomen: Normal bowel sounds, Soft Extremities: No clubbing, No cyanosis Skin: No rashes, No breakdown Assessment and Plan Assessmemt and Plan Sepsis secondary to COVID-19 PNA COVID-19SARS COV2+ Panycytopenia Acute hypoxic resp failure CKD on HD Acute CHF Elevated troponin HTN urgency Severe protein calorie malnutrition Plan IV steroids Remdesivir completed Multiple vitamins Trend labs Duo nebs Dialysis Sunday Home meds DVT prophylaxis Full code Patient subspecialist input Long-term prognosis guarded but improving Comment Review of Relevant I have reviewed the following items yoel (where applicable) has been applied. Medications: Current Medications Medications (Trade) Dose Ordered Sig/Rebecca Route PRN Reason Start Time Stop Time Status Last Admin Dose Admin Methylprednisolone Sodium Succinate (SOLU-Medrol 40MG VIAL) 40 mg DAILY IV 03/02/20 09:00 03/02/20 08:35 Justicifation of Admission Dx: Justifications for Admission: Justification of Admission Dx: Yes Respiratory Failure: Severe Resp Distress ALICIA FLORENCE III DO Mar 02, 2020 13:17
--- NOTE | 2020-03-02 14:09 | PDOC ---
PULMONARY PROGRESS NOTES Subjective Patient eating drinking not more short of air Vitals Vital Signs Date Time Temp Pulse Resp B/P (MAP) Pulse Ox O2 Delivery O2 Flow Rate FiO2 03/02/20 12:00 98.8 85 25 140/73 (95) 96 Nasal Cannula 2.0 98.8 ROS: No Nausea, No Chest Pain, No Abdominal Pain, No Increase Cough General: Alert HEENT: Other Lungs: Clear Cardiovascular: S1, S2 Abdomen: Soft Neuro Exam: Alert Extremities: No Edema Skin: Warm, No Rashes Labs Laboratory Tests Test 03/01/20 05:30 White Blood Count 11.2 x10^3/uL (4.0-11.0) Red Blood Count 2.70 x10^6/uL (3.50-5.40) Hemoglobin 8.4 g/dL (12.0-15.5) Hematocrit 25.5 % (36.0-47.0) Mean Corpuscular Volume 94 fL (79-100) Mean Corpuscular Hemoglobin 31 pg (25-35) Mean Corpuscular Hemoglobin Concent 33 g/dL (31-37) Red Cell Distribution Width 15.7 % (11.5-14.5) Platelet Count 217 x10^3/uL (140-400) Neutrophils (%) (Auto) 93 % (31-73) Lymphocytes (%) (Auto) 3 % (24-48) Monocytes (%) (Auto) 3 % (0-9) Eosinophils (%) (Auto) 0 % (0-3) Basophils (%) (Auto) 0 % (0-3) Neutrophils # (Auto) 10.5 x10^3/uL (1.8-7.7) Lymphocytes # (Auto) 0.3 x10^3/uL (1.0-4.8) Monocytes # (Auto) 0.4 x10^3/uL (0.0-1.1) Eosinophils # (Auto) 0.0 x10^3/uL (0.0-0.7) Basophils # (Auto) 0.0 x10^3/uL (0.0-0.2) Segmented Neutrophils % 93 % (35-66) Lymphocytes % 4 % (24-48) Monocytes % 3 % (0-10) Platelet Estimate Adequate (ADEQUATE) Sodium Level 133 mmol/L (136-145) Potassium Level 5.4 mmol/L (3.5-5.1) Chloride Level 97 mmol/L (98-107) Carbon Dioxide Level 23 mmol/L (21-32) Anion Gap 13 (6-14) Blood Urea Nitrogen 129 mg/dL (7-20) Creatinine 4.8 mg/dL (0.6-1.0) Estimated GFR (Cockcroft-Gault) 9.0 BUN/Creatinine Ratio 27 (6-20) Glucose Level 148 mg/dL (70-99) Calcium Level 8.4 mg/dL (8.5-10.1) Total Bilirubin 0.3 mg/dL (0.2-1.0) Aspartate Amino Transf (AST/SGOT) 23 U/L (15-37) Alanine Aminotransferase (ALT/SGPT) 22 U/L (14-59) Alkaline Phosphatase 76 U/L (46-116) Total Protein 5.2 g/dL (6.4-8.2) Albumin 2.0 g/dL (3.4-5.0) Albumin/Globulin Ratio 0.6 (1.0-1.7) Medications Active Scripts Medications Dose Route/Sig Max Daily Dose Days Date Category Oxycodone Hcl Immed.release (Oxycodone Hcl) 5 Mg Tablet 1 Tab PO QID 04/15/18 Rx Sodium Bicarbonate 650 Mg Tablet 1,300 Mg PO BID 06/10/17 Reported Ferrous Sulfate 325 Mg Tablet 325 Mg PO TIDWMEALS 06/10/17 Reported Vitamin D2 (Ergocalciferol (Vitamin D2)) 50,000 Unit Capsule 50,000 Unit PO WEEKLY 12/07/16 Rx Folbic Tablet (Cyanocobalamin/Fa/Pyridoxine) 1 Each Tablet 1 Tab PO DAILY 12/07/16 Rx Calcitriol 0.25 Mcg Capsule 0.25 Mcg PO DAILY 12/07/16 Rx Norvasc (Amlodipine Besylate) 10 Mg Tablet 10 Mg PO DAILY08 09/04/13 Reported Comments cta reviewed 1. There are severe bilateral infiltrates greatest of the lower lobes although variable involvement of the other lobes. 2. There is coronary calcification. 3. Main pulmonary artery dilatation suggests pulmonary hypertension. no central pe Impression . IMPRESSION: 1. Acute hypoxemic respiratory failure secondary COVID-19 viral pneumonia.. oxygenation improved 2. Abnormal chest x-ray. 3. Febrile illness. 4. Pancytopenia. 5. Acute diastolic congestive heart failure. 6. End-stage renal disease, on hemodialysis. 7. SARS-CoV-[address] chest Impression: 1. There are severe bilateral infiltrates greatest of the lower lobes although variable involvement of the other lobes. 2. There is coronary calcification. 3. Main pulmonary artery dilatation suggests pulmonary hypertension. Plan . Much improved, transferred-itis ICU, PT OT, possible discharge next 24 to 48 hours Oxygen supplementation Hemodialysis per nephro cont Steroids, will decrease Antibiotics per ID Follow cultures s/p Remdisivir 02/22, DVT GI prophylaxis discussed w LYRIC Sofia MD Mar 02, 2020 14:09
[2020-03-02 16:00] VITALS: BP 114/61
[2020-03-02 20:00] VITALS: BP 124/63
[2020-03-03] VITALS: BP 139/69
[2020-03-03 04:00] VITALS: BP 133/68
[2020-03-03] MEDS: HEPARIN for SUB-Q USE 5,000 UNIT/ML VIAL. SQ SCH ×3 (06:07→20:11)
[2020-03-03 06:24] LABS: HEMOGLOBIN 7.7 g/dL (12.0-15.5); RED BLOOD COUNT 2.51 x10^6/uL (3.50-5.40); RED CELL DISTRIBUTION WIDTH 15.8 % (11.5-14.5); WHITE BLOOD COUNT 10.1 x10^3/uL (4.0-11.0)
[2020-03-03 06:41] LABS: CALCIUM 8.3 mg/dL (8.5-10.1); CREATININE 4.4 mg/dL (0.6-1.0); GFR 9.9; POTASSIUM 4.5 mmol/L (3.5-5.1)
[2020-03-03] MEDS ORDERED: DIALYSIS PATIENT. MC PRN ×2 (07:45)
[2020-03-03] MEDS ORDERED: ALBUMIN HUMAN 25% 200 ML IV PRN (07:45)
[2020-03-03] MEDS ORDERED: IV NORMAL SALINE 1000ML BAG 1,000 ML IV PRN ×2 (07:45)
--- NOTE | 2020-03-03 07:51 | PDOC ---
Infectious Disease Note Subjective: Subjective Patient feeling better down to 1L O2 Denies F/N/V/D Awaiting dialysis session later today Denies worsening cough or shortness of breath Vital Signs: Vital Signs Vital Signs Date Time Temp Pulse Resp B/P (MAP) Pulse Ox O2 Delivery O2 Flow Rate FiO2 03/03/20 04:00 98.1 73 26 133/68 (89) 96 Nasal Cannula 1.0 98.1 Physical Exam: PHYSICAL EXAM GENERAL: Propped up in bed, alert and watching TV HEENT: Pupils equal, Oral cavity clear NECK: Supple, no JVD. LUNGS: + crackles bases, no accessory muscle use. HEART: S1, S2. regular ABDOMEN: Obese, soft, no guarding. + umbilical hernia. EXTREMITIES: No clubbing, cyanosis or gross edema. SCDs bilaterally SKIN: Warm to touch without signs of rash. PHYSICIAN/INTERNIST: Alert, answers questions appropriately Left subclavian central line, 02/26 without signs of complications Medications: Inpatient Meds: Current Medications Medications (Trade) Dose Ordered Sig/Rebecca Start Time Stop Time Status Last Admin Dose Admin Acetaminophen (Tylenol) 650 mg PRN Q4HRS PRN 02/22/20 20:45 03/01/20 13:48 650 MG Albumin Human 200 ml @ 200 mls/hr 1X PRN PRN 03/01/20 11:30 03/01/20 17:29 DC Amino Acids/ Glycerin/ Electrolytes 1,000 ml @ 80 mls/hr [id number] 02/23/20 10:30 02/29/20 10:12 DC 02/29/20 03:40 80 MLS/HR Amlodipine Besylate (Norvasc) 10 mg DAILY08 02/23/20 08:00 03/02/20 08:35 10 MG Azithromycin 250 ml @ 250 mls/hr 1X ONCE 02/21/20 06:30 02/21/20 07:29 DC 02/21/20 06:42 250 MLS/HR Azithromycin 500 mg/Sodium Chloride 250 ml @ 250 mls/hr 1X ONCE 02/20/20 19:30 02/20/20 20:29 Cancel Cefepime HCl (Maxipime) 1 gm Q24H 02/21/20 06:15 02/26/20 11:51 DC 02/26/20 06:06 1 GM Ceftriaxone Sodium (Rocephin) 1 gm 1X ONCE 02/20/20 19:30 02/20/20 19:31 DC 02/20/20 19:37 1 GM Darbepoetin Jono (ARANESP for DIALYSIS PTS) 60 mcg WEEKLYHS 02/23/20 21:00 03/01/20 20:09 60 MCG Dextrose (Dextrose 50%-Water Syringe) 25 gm 1X ONCE 02/21/20 10:45 02/21/20 10:57 DC Diphenhydramine HCl (Benadryl) 25 mg 1X PRN PRN 03/01/20 11:30 03/02/20 11:29 DC Furosemide (Lasix) 40 mg 1X ONCE 02/20/20 21:00 02/20/20 21:01 DC 02/20/20 20:53 40 MG Heparin Sodium (Porcine) (Heparin Sodium) 5,000 unit Q8HRS 02/22/20 22:00 03/03/20 06:07 5,000 UNIT Hydralazine HCl (Apresoline Inj) 10 mg 1X ONCE 02/20/20 20:00 02/20/20 20:02 DC 02/20/20 20:39 10 MG Info (CONTRAST GIVEN -- Rx MONITORING) 1 each PRN DAILY PRN 02/20/20 20:00 02/22/20 19:59 DC Info (PHARMACY MONITORING -- do not chart) 1 each PRN DAILY PRN 03/01/20 11:30 Insulin Human Regular (HumuLIN R VIAL) 10 unit 1X ONCE 02/21/20 10:45 02/21/20 10:52 DC Iohexol (Omnipaque 350 Mg/ml) 70 ml 1X ONCE 02/20/20 20:00 02/20/20 20:01 DC 02/20/20 22:19 70 ML Lactobacillus Rhamnosus (Culturelle) 1 cap BID 02/23/20 21:00 03/02/20 21:07 1 CAP Loperamide HCl (Imodium) 2 mg PRN Q15MIN PRN 02/21/20 18:45 03/02/20 17:29 2 MG Lorazepam (Ativan Inj) 0.5 mg 1X ONCE 02/21/20 21:15 02/21/20 21:16 DC 02/21/20 21:32 0.5 MG Lorazepam (Ativan) 1 mg 1X PRN 02/26/20 14:00 02/26/20 14:10 DC 02/26/20 14:10 1 MG Methylprednisolone Sodium Succinate (SOLU-Medrol 40MG VIAL) 40 mg DAILY 03/02/20 09:00 03/02/20 08:35 40 MG Multivitamins (Thera M Plus) 1 tab DAILY 02/21/20 09:00 03/02/20 08:34 1 TAB Non-Formulary Medication 1 ea/ Sodium Chloride 230 ml @ 460 mls/hr DAILY 02/24/20 09:00 02/27/20 09:29 DC 02/27/20 13:56 460 MLS/HR Norepinephrine Bitartrate 8 mg/ Dextrose 258 ml @ 13.719 mls/ hr 1X ONCE 02/20/20 23:45 02/21/20 18:33 DC 02/20/20 23:45 13.1 MLS/HR Ondansetron HCl (Zofran) 4 mg PRN Q6HRS PRN 02/23/20 18:45 02/24/20 16:15 4 MG Sodium Chloride 1,000 ml @ 400 mls/hr Q2H30M PRN 03/01/20 11:23 03/01/20 23:22 DC Vancomycin HCl (Vanco Per Pharmacy) 1 each PRN DAILY PRN 02/21/20 06:15 02/24/20 11:42 DC 02/24/20 11:27 1 EACH Vancomycin HCl (Vancomycin Random Level) 1 each 1X ONCE 02/23/20 05:00 02/23/20 05:01 DC 02/23/20 05:00 1 EACH Vancomycin HCl 1.5 gm/Sodium Chloride 500 ml @ 250 mls/hr 1X ONCE 02/21/20 06:30 02/21/20 08:30 DC 02/21/20 13:23 250 MLS/HR Vancomycin HCl 500 mg/Sodium Chloride 100 ml @ 100 mls/hr QMWF 02/25/20 16:00 02/24/20 11:42 DC Vitamin B Complex (Folbic Tablet) 1 tab DAILY 02/23/20 09:00 03/02/20 08:35 1 TAB Labs: Lab Laboratory Tests Test 03/03/20 06:15 White Blood Count 10.1 x10^3/uL (4.0-11.0) Red Blood Count 2.51 x10^6/uL (3.50-5.40) Hemoglobin 7.7 g/dL (12.0-15.5) Hematocrit 24.0 % (36.0-47.0) Mean Corpuscular Volume 95 fL (79-100) Mean Corpuscular Hemoglobin 31 pg (25-35) Mean Corpuscular Hemoglobin Concent 32 g/dL (31-37) Red Cell Distribution Width 15.8 % (11.5-14.5) Platelet Count 169 x10^3/uL (140-400) Sodium Level 139 mmol/L (136-145) Potassium Level 4.5 mmol/L (3.5-5.1) Chloride Level 103 mmol/L (98-107) Carbon Dioxide Level 26 mmol/L (21-32) Anion Gap 10 (6-14) Blood Urea Nitrogen 95 mg/dL (7-20) Creatinine 4.4 mg/dL (0.6-1.0) Estimated GFR (Cockcroft-Gault) 9.9 Glucose Level 85 mg/dL (70-99) Calcium Level 8.3 mg/dL (8.5-10.1) Objective: Assessment: COVID-19 viral infection, (02/19) s/p Remdisivir Fever - better Pancytopenia.,now leucocytosis likely from steroids PENICILLIN ALLERGY. Acute hypoxic respiratory failure, off BiPAP; Congestive heart failure. Plan: Plan of Care Continue supportive care off antibiotics Steroids per pulmonary Airborne isolation D/w nursing TAMEKA MONTANO MD Mar 03, 2020 07:51
[2020-03-03 08:00] VITALS: BP 117/64
[2020-03-03] MEDS: amLODIPine BESYLATE 10 MG TABLET PO SCH (08:00)
[2020-03-03] MEDS: MULTIVITAMIN with MINERAL TABLET. PO SCH (09:00)
[2020-03-03] MEDS: LACTOBACILLUS RHAMNOSUS GG 1 CAPSULE. PO SCH ×2 (09:00→20:09)
[2020-03-03] MEDS: VITAMIN B12,B9,B6 COMPLEX 1 TABLET. PO SCH (09:00)
--- NOTE | 2020-03-03 09:24 | PDOC ---
PULMONARY PROGRESS NOTES Subjective Patient eating drinking not more short of air Vitals Vital Signs Date Time Temp Pulse Resp B/P (MAP) Pulse Ox O2 Delivery O2 Flow Rate FiO2 03/03/20 04:00 98.1 73 26 133/68 (89) 96 Nasal Cannula 1.0 98.1 ROS: No Nausea, No Chest Pain, No Abdominal Pain, No Increase Cough General: Alert HEENT: Other Lungs: Clear Cardiovascular: S1, S2 Abdomen: Soft Neuro Exam: Alert Extremities: No Edema Skin: Warm, No Rashes Labs Laboratory Tests Test 03/03/20 06:15 White Blood Count 10.1 x10^3/uL (4.0-11.0) Red Blood Count 2.51 x10^6/uL (3.50-5.40) Hemoglobin 7.7 g/dL (12.0-15.5) Hematocrit 24.0 % (36.0-47.0) Mean Corpuscular Volume 95 fL (79-100) Mean Corpuscular Hemoglobin 31 pg (25-35) Mean Corpuscular Hemoglobin Concent 32 g/dL (31-37) Red Cell Distribution Width 15.8 % (11.5-14.5) Platelet Count 169 x10^3/uL (140-400) Sodium Level 139 mmol/L (136-145) Potassium Level 4.5 mmol/L (3.5-5.1) Chloride Level 103 mmol/L (98-107) Carbon Dioxide Level 26 mmol/L (21-32) Anion Gap 10 (6-14) Blood Urea Nitrogen 95 mg/dL (7-20) Creatinine 4.4 mg/dL (0.6-1.0) Estimated GFR (Cockcroft-Gault) 9.9 Glucose Level 85 mg/dL (70-99) Calcium Level 8.3 mg/dL (8.5-10.1) Laboratory Tests Test 03/03/20 06:15 White Blood Count 10.1 x10^3/uL (4.0-11.0) Red Blood Count 2.51 x10^6/uL (3.50-5.40) Hemoglobin 7.7 g/dL (12.0-15.5) Hematocrit 24.0 % (36.0-47.0) Mean Corpuscular Volume 95 fL (79-100) Mean Corpuscular Hemoglobin 31 pg (25-35) Mean Corpuscular Hemoglobin Concent 32 g/dL (31-37) Red Cell Distribution Width 15.8 % (11.5-14.5) Platelet Count 169 x10^3/uL (140-400) Sodium Level 139 mmol/L (136-145) Potassium Level 4.5 mmol/L (3.5-5.1) Chloride Level 103 mmol/L (98-107) Carbon Dioxide Level 26 mmol/L (21-32) Anion Gap 10 (6-14) Blood Urea Nitrogen 95 mg/dL (7-20) Creatinine 4.4 mg/dL (0.6-1.0) Estimated GFR (Cockcroft-Gault) 9.9 Glucose Level 85 mg/dL (70-99) Calcium Level 8.3 mg/dL (8.5-10.1) Medications Active Scripts Medications Dose Route/Sig Max Daily Dose Days Date Category Oxycodone Hcl Immed.release (Oxycodone Hcl) 5 Mg Tablet 1 Tab PO QID 04/15/18 Rx Sodium Bicarbonate 650 Mg Tablet 1,300 Mg PO BID 06/10/17 Reported Ferrous Sulfate 325 Mg Tablet 325 Mg PO TIDWMEALS 06/10/17 Reported Vitamin D2 (Ergocalciferol (Vitamin D2)) 50,000 Unit Capsule 50,000 Unit PO WEEKLY 12/07/16 Rx Folbic Tablet (Cyanocobalamin/Fa/Pyridoxine) 1 Each Tablet 1 Tab PO DAILY 12/07/16 Rx Calcitriol 0.25 Mcg Capsule 0.25 Mcg PO DAILY 12/07/16 Rx Norvasc (Amlodipine Besylate) 10 Mg Tablet 10 Mg PO DAILY08 09/04/13 Reported Comments cta reviewed 1. There are severe bilateral infiltrates greatest of the lower lobes although variable involvement of the other lobes. 2. There is coronary calcification. 3. Main pulmonary artery dilatation suggests pulmonary hypertension. no central pe Impression . IMPRESSION: 1. Acute hypoxemic respiratory failure secondary COVID-19 viral pneumonia.. oxygenation improved 2. Abnormal chest x-ray. 3. Febrile illness. 4. Pancytopenia. 5. Acute diastolic congestive heart failure. 6. End-stage renal disease, on hemodialysis. 7. SARS-CoV-[address] chest Impression: 1. There are severe bilateral infiltrates greatest of the lower lobes although variable involvement of the other lobes. 2. There is coronary calcification. 3. Main pulmonary artery dilatation suggests pulmonary hypertension. Plan . Much improved, transferred-itis ICU, PT OT, possible discharge next 24 to 48 hours Oxygen supplementation Hemodialysis per nephro cont Steroids, will decrease Antibiotics per ID Follow cultures s/p Remdisivir 02/22, DVT GI prophylaxis discussed w LYRIC Sofia MD Mar 03, 2020 09:24
--- NOTE | 2020-03-03 10:21 | NUR ---
SS following up with discharge planning. SS reviewed pt chart and discussed with pt RN. Pt is COVID19 positive and is currently requiring oxygen. Pt has dialysis set up at [facility], ; fax [phone], Sunday, , and Sunday. PT/OT recommended acute rehabilitation. SS contacted pt's POA and discussed acute rehabilitation. Pt's POA agreeable to rehabilitation and requested referral be phoned and faxed to [facility], ; fax [phone], because family lives and works near . SS phoned and faxed referral to [facility]. SS discussed with Tierney at [facility] Tierney to contact DEMARCO or Stormy COOPER, with acceptance decision. Pt will need insurance authorization. Pt transferred to room 654. Stormy COOPER notified.
--- NOTE | 2020-03-03 11:33 | PDOC ---
Renal-Progress Notes Subjective Notes Notes NO NEW COMPLAINTS History of Present Illness Hx of present illness STABLE Vitals Vitals Vital Signs Date Time Temp Pulse Resp B/P (MAP) Pulse Ox O2 Delivery O2 Flow Rate FiO2 03/03/20 08:00 Nasal Cannula 1.0 03/03/20 08:00 117/64 (81) 03/03/20 04:00 98.1 73 26 96 98.1 Weight Weight [ ] I.O. Intake and Output Intake and Output 03/03/20 07:00 Intake Total 1640 ml Output Total 650 ml Balance 990 ml Intake Oral 1640 ml Output Urine Total 650 ml # Bowel Movements 4 Labs Labs Laboratory Tests Test 03/03/20 06:15 White Blood Count 10.1 x10^3/uL (4.0-11.0) Red Blood Count 2.51 x10^6/uL (3.50-5.40) Hemoglobin 7.7 g/dL (12.0-15.5) Hematocrit 24.0 % (36.0-47.0) Mean Corpuscular Volume 95 fL (79-100) Mean Corpuscular Hemoglobin 31 pg (25-35) Mean Corpuscular Hemoglobin Concent 32 g/dL (31-37) Red Cell Distribution Width 15.8 % (11.5-14.5) Platelet Count 169 x10^3/uL (140-400) Sodium Level 139 mmol/L (136-145) Potassium Level 4.5 mmol/L (3.5-5.1) Chloride Level 103 mmol/L (98-107) Carbon Dioxide Level 26 mmol/L (21-32) Anion Gap 10 (6-14) Blood Urea Nitrogen 95 mg/dL (7-20) Creatinine 4.4 mg/dL (0.6-1.0) Estimated GFR (Cockcroft-Gault) 9.9 Glucose Level 85 mg/dL (70-99) Calcium Level 8.3 mg/dL (8.5-10.1) Review of Systems Constitutional: yes: weakness, alert, oriented Ears/Nose/Throat: Yes: no symptom reported Eyes: Yes: no symptom reported Cardiovascular: Yes no symptom reported Gastrointestional: Yes: constipation Genitourinary: Yes: no symptom reported Musculoskeletal: Yes: muscle stiffness Skin: Yes no symptom reported Endocrine: Yes: no symptom reported Physical Exam General Appearance: no apparent distress Skin: warm Respiratory: bilateral CTA Heart: S1S2 Abdomen: soft, bowel sounds present Genitourinary: bladder flat Neurology: alert, oriented Musculoskeletal: Osteoarthritis, Other Assessment Assessment IMP ESRD COVID POS ACUTE RESP FAILURE ANEMIA PLAN HD TODAY UF TO DW SUPPORTIVE CARE WILL FOLLOW LIONEL BRAGA MD Mar 03, 2020 11:33
--- NOTE | 2020-03-03 12:59 | PDOC ---
[employer] PROGRESS NOTE Chief Complaint Chief Complaint Sepsis secondary to COVID-19 PNA COVID-19SARS COV2+ Panycytopenia Acute hypoxic resp failure CKD on HD Acute CHF Elevated troponin HTN urgency Severe protein calorie malnutrition History of Present Illness History of Present Illness 03/03/2020 Patient seen and examined in the dialysis unit She remains in respiratory isolation Chart reviewed Discussed with RN Discussed with case management 03/02/2020 Patient seen and examined She is still in the COVID-19 ICU Chart reviewed Discussed with RN 03/01/2020 Patient seen and examined in the COVID-19 ICU Chart reviewed Discussed with RN Ms Murillo is a 69yo F ESRD on HD, anemia who presented to [facility] on 02/19 with complaints of shortness of air, feeling chills while at dialysis. Noted in ED with a temperature of 103.2. On arrival, she had a white count of 2.8. A chest x-ray was obtained. She had bilateral infiltrates, some rounded areas of density, possible metastatic or nodules in the lungs. Subsequently, underwent a CT angiography of her chest showed there were several bilateral infiltrates, greatest in the lower lobes, although variable involvement of the other lobes and she had pulmonary hypertension. ABG 7.25/59/64, and she had been placed on BiPAP and was given doses of azithrom ycin and Rocephin as well as steroids. Currently, she is lying in bed. She is feeling more comfortable. She is on BiPAP. She has had a dry cough and a little bit of diarrhea. Vitals/I&O Vitals/I&O: Vital Signs Date Time Temp Pulse Resp B/P (MAP) Pulse Ox O2 Delivery O2 Flow Rate FiO2 03/03/20 08:00 Nasal Cannula 1.0 03/03/20 08:00 117/64 (81) 03/03/20 04:00 98.1 73 26 96 98.1 I & O 03/02/20 03/02/20 03/03/20 15:00 23:00 07:00 Intake Total 720 ml 820 ml 100 ml Output Total 300 ml 200 ml 150 ml Balance 420 ml 620 ml -50 ml Physical Exam Physical Exam: GENERAL: Propped up in bed, alert and watching TV HEENT: Pupils equal, Oral cavity clear NECK: Supple, no JVD. LUNGS: + crackles bases, no accessory muscle use. HEART: S1, S2. regular ABDOMEN: Obese, soft, no guarding. + umbilical hernia. EXTREMITIES: No clubbing, cyanosis or gross edema. SCDs bilaterally SKIN: Warm to touch without signs of rash. BUSINESS PLANNING DIRECTOR: Alert, answers questions appropriately Left subclavian central line, 02/26 without signs of complications General: Alert, Cooperative, moderate distress Heart: Regular rate, Normal S1, Normal S2 Lungs: Clear Abdomen: Normal bowel sounds, Soft Extremities: No clubbing, No cyanosis Skin: No rashes, No breakdown Labs Labs: Laboratory Tests Test 03/03/20 06:15 White Blood Count 10.1 x10^3/uL (4.0-11.0) Red Blood Count 2.51 x10^6/uL (3.50-5.40) Hemoglobin 7.7 g/dL (12.0-15.5) Hematocrit 24.0 % (36.0-47.0) Mean Corpuscular Volume 95 fL (79-100) Mean Corpuscular Hemoglobin 31 pg (25-35) Mean Corpuscular Hemoglobin Concent 32 g/dL (31-37) Red Cell Distribution Width 15.8 % (11.5-14.5) Platelet Count 169 x10^3/uL (140-400) Sodium Level 139 mmol/L (136-145) Potassium Level 4.5 mmol/L (3.5-5.1) Chloride Level 103 mmol/L (98-107) Carbon Dioxide Level 26 mmol/L (21-32) Anion Gap 10 (6-14) Blood Urea Nitrogen 95 mg/dL (7-20) Creatinine 4.4 mg/dL (0.6-1.0) Estimated GFR (Cockcroft-Gault) 9.9 Glucose Level 85 mg/dL (70-99) Calcium Level 8.3 mg/dL (8.5-10.1) Assessment and Plan Assessmemt and Plan Sepsis secondary to COVID-19 PNA COVID-19SARS COV2+ Panycytopenia Acute hypoxic resp failure CKD on HD Acute CHF Elevated troponin HTN urgency Severe protein calorie malnutrition Plan Continue supportive care Dialysis Sunday Home meds Trend labs DVT prophylaxis Full code Appreciate subspecialist input Discharge disposition pending suspect she will go to skilled soon? (discussed with case management) Comment Review of Relevant I have reviewed the following items yoel (where applicable) has been applied. Justicifation of Admission Dx: Justifications for Admission: Justification of Admission Dx: Yes Respiratory Failure: Severe Resp Distress ALICIA FLORENCE III DO Mar 03, 2020 12:59
[2020-03-03] MEDS: methylPREDNISolone SOD SUCC PF 40 MG/ML VIAL. IV SCH (14:02)
[2020-03-03] MEDS: ONDANSETRON PF 4 MG/2 ML VIAL. IVP PRN ×2 (14:02→20:09)
[2020-03-03 16:10] VITALS: BP 103/58
--- NOTE | 2020-03-03 17:26 | NUR ---
SW following. Spoke with RN and reviewed chart. Mabel at [facility] stated they can't take this pt to dialysis per COVID positive and working to figure out how to accept pt for SNU. ALLISON spoke with dtr who is agreeable to referral to [facility] for acute rehab. Patient Choice of Vendor form completed. ALLISON phoned and faxed referral to [facility], , (fax). Pt accepted clinically and [facility] stated he submitted for insurance authorization. ALLISON to continue following.
--- NOTE | 2020-03-03 17:29 | NUR ---
Discharge Note: WILLOW HERR Discharge instructions and discharge home medications reviewed with Other facility and a copy given. All questions have been answered and understanding verbalized. The following instructions and handouts were given: Diet, activity, medication list and follow up instructions sent to [facility]. Discontinued lines and drains: Peripheral IV discontinued and catheter intact. Patient discharged to [facility]
[2020-03-03 19:20] VITALS: BP 93/51
[2020-03-03 23:55] VITALS: BP 129/71
[2020-03-04 03:09] VITALS: BP 117/57
[2020-03-04] MEDS: ACETAMINOPHEN 325 MG TABLET. PO PRN (05:00)
[2020-03-04] MEDS: HEPARIN for SUB-Q USE 5,000 UNIT/ML VIAL. SQ SCH ×3 (05:00→21:15)
--- NOTE | 2020-03-04 08:01 | PDOC ---
PROGRESS NOTES Chief Complaint Chief Complaint A/P: Sepsis - concern for bilateral pneumonia likely gram negative given dialysis status + COVID 19 COVID-19SARS COV2+ Panycytopenia Acute hypoxic resp failure - on Bipap CKD onHD Acute CHF Elevated troponin HTN urgency Severe protein calorie malnutrition History of Present Illness History of Present Illness Ms Murillo is a 69yo F ESRD on HD, anemia who presented to [facility] on 02/19 with complaints of shortness of air, feeling chills while at dialysis. Noted in ED with a temperature of 103.2. On arrival, she had a white count of 2.8. CXR with bilateral infiltrates, some rounded areas of density, possible metastatic or nodules in the lungs. Subsequently, underwent a CT angiography of her chest showed there were several bilateral infiltrates, greatest in the lower lobes, although variable involvement of the other lobes and she had pulmonary hypertension. 02/20: ABG 7./59/64, and she had been placed on BiPAP and was given doses of azithromycin and Rocephin as well as steroids. Currently, she is lying in bed. She is feeling more comfortable. She is on BiPAP. She has had a dry cough and a little bit of diarrhea. 02/21: Repeat ABG 02/12/51/63 after hours on BIPAP 18/8 with FIO2 40%. Significant for albumin 3.1 BUN 10 CR 2.3 BNP 30098 WBC 2.8, Hb 9.8, platelets 61 lactate 1.3 troponin 0.113. Overall, speaking through BiPAP mask she states she feels better. Asking for food. 02/22: Afebrile. Overnight required BIPAP. Seen on O2 5L now. Still leukopenic. More comfortable. COVID 19 positive 02/23: S/p initiation of remdesivir. 03/01: Still in COVID ICU 03/02: She is still in the COVID-19 ICU 03/03: Patient seen and examined in the dialysis unit Transferred to general medical floor. On 1L NCO2, feels much better. [birth year] today. Still on IV steroids, plan to decrease dosing. Plan for discharge to [facility] rehabilitation. Vitals Vitals Vital Signs Date Time Temp Pulse Resp B/P (MAP) Pulse Ox O2 Delivery O2 Flow Rate FiO2 03/04/20 03:09 98.4 75 20 117/57 (77) 100 Nasal Cannula 1.0 98.4 Physical Exam Physical Exam GENERAL: Propped up in bed, alert and watching TV HEENT: Pupils equal, Oral cavity clear NECK: Supple, no JVD. LUNGS: + crackles bases, no accessory muscle use. HEART: S1, S2. regular ABDOMEN: Obese, soft, no guarding. + umbilical hernia. EXTREMITIES: No clubbing, cyanosis or gross edema. SCDs bilaterally SKIN: Warm to touch without signs of rash. 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 Labs Laboratory Tests Test 03/03/20 06:15 White Blood Count 10.1 x10^3/uL (4.0-11.0) Red Blood Count 2.51 x10^6/uL (3.50-5.40) Hemoglobin 7.7 g/dL (12.0-15.5) Hematocrit 24.0 % (36.0-47.0) Mean Corpuscular Volume 95 fL (79-100) Mean Corpuscular Hemoglobin 31 pg (25-35) Mean Corpuscular Hemoglobin Concent 32 g/dL (31-37) Red Cell Distribution Width 15.8 % (11.5-14.5) Platelet Count 169 x10^3/uL (140-400) Sodium Level 139 mmol/L (136-145) Potassium Level 4.5 mmol/L (3.5-5.1) Chloride Level 103 mmol/L (98-107) Carbon Dioxide Level 26 mmol/L (21-32) Anion Gap 10 (6-14) Blood Urea Nitrogen 95 mg/dL (7-20) Creatinine 4.4 mg/dL (0.6-1.0) Estimated GFR (Cockcroft-Gault) 9.9 Glucose Level 85 mg/dL (70-99) Calcium Level 8.3 mg/dL (8.5-10.1) Medications Current Medications Ceftriaxone Sodium (Rocephin) 1 gm 1X ONCE IVP Last administered on 02/20/20at 19:37; Start 02/20/20 at 19:30; Stop 02/20/20 at 19:31; Status DC Azithromycin 500 mg/Sodium Chloride 250 ml @ 250 mls/hr 1X ONCE IV ; Start 02/20/20 at 19:30; Stop 02/20/20 at 20:29; Status Cancel Acetaminophen (Tylenol) 1,000 mg 1X ONCE PO Last administered on 02/20/20at 19:37; Start 02/20/20 at 19:30; Stop 02/20/20 at 19:31; Status DC Azithromycin 250 ml @ 250 mls/hr 1X ONCE IV Last administered on 02/20/20at 19:37; Start 02/20/20 at 19:30; Stop 02/20/20 at 20:29; Status DC Ondansetron HCl (Zofran) 4 mg PRN Q8HRS PRN IV NAUSEA/VOMITING; Start 02/20/20 at 19:30; Stop 02/21/20 at 19:29; Status DC Iohexol (Omnipaque 350 Mg/ml) 70 ml 1X ONCE IV Last administered on 02/20/20at 22:19; Start 02/20/20 at 20:00; Stop 02/20/20 at 20:01; Status DC Info (CONTRAST GIVEN -- Rx MONITORING) 1 each PRN DAILY PRN MC SEE COMMENTS; Start 02/20/20 at 20:00; Stop 02/22/20 at 19:59; Status DC Hydralazine HCl (Apresoline Inj) 10 mg 1X ONCE IVP Last administered on 02/20/20at 20:39; Start 02/20/20 at 20:00; Stop 02/20/20 at 20:02; Status DC Multivitamins (Thera M Plus) 1 tab DAILY PO Last administered on 03/02/20at 08:34; Start 02/21/20 at 09:00 Furosemide (Lasix) 40 mg 1X ONCE IVP Last administered on 02/20/20at 20:53; Start 02/20/20 at 21:00; Stop 02/20/20 at 21:01; Status DC Methylprednisolone Sodium Succinate (SOLU-Medrol 40MG VIAL) 40 mg STK-MED ONCE .ROUTE ; Start 02/20/20 at 20:56; Stop 02/20/20 at 20:56; Status DC Methylprednisolone Sodium Succinate (SOLU-Medrol 40MG VIAL) 40 mg Q12HR IV Last administered on 03/01/20at 08:10; Start 02/21/20 at 09:00; Stop 03/01/20 at 14:58; Status DC Methylprednisolone Sodium Succinate (SOLU-Medrol 40MG VIAL) 80 mg 1X ONCE IV Last administered on 02/20/20at 21:07; Start 02/20/20 at 21:15; Stop 02/20/20 at 21:16; Status DC Lorazepam (Ativan Inj) 2 mg STK-MED ONCE .ROUTE ; Start 02/20/20 at 22:32; Stop 02/20/20 at 22:32; Status DC Norepinephrine Bitartrate 8 mg/ Dextrose 258 ml @ 13.719 mls/ hr 1X ONCE IV Last administered on 02/20/20at 23:45; Start 02/20/20 at 23:45; Stop 02/21/20 at 18:33; Status DC Lorazepam (Ativan Inj) 1 mg 1X ONCE IVP Last administered on 02/20/20at 23:45; Start 02/20/20 at 23:45; Stop 02/20/20 at 23:48; Status DC Vancomycin HCl (Vanco Per Pharmacy) 1 each PRN DAILY PRN MC SEE COMMENTS Last administered on 02/24/20at 11:27; Start 02/21/20 at 06:15; Stop 02/24/20 at 11:42; Status DC Cefepime HCl (Maxipime) 1 gm Q24H IVP Last administered on 02/26/20at 06:06; Start 02/21/20 at 06:15; Stop 02/26/20 at 11:51; Status DC Azithromycin 250 ml @ 250 mls/hr 1X ONCE IV Last administered on 02/21/20at 06:42; Start 02/21/20 at 06:30; Stop 02/21/20 at 07:29; Status DC Vancomycin HCl 1.5 gm/Sodium Chloride 500 ml @ 250 mls/hr 1X ONCE IV Last administered on 02/21/20at 13:23; Start 02/21/20 at 06:30; Stop 02/21/20 at 08:30; Status DC Vancomycin HCl (Vancomycin Random Level) 1 each 1X ONCE MC Last administered on 02/23/20at 05:00; Start 02/23/20 at 05:00; Stop 02/23/20 at 05:01; Status DC Dextrose (Dextrose 50%-Water Syringe) 25 gm 1X ONCE IV ; Start 02/21/20 at 10:45; Stop 02/21/20 at 10:57; Status DC Insulin Human Regular (HumuLIN R VIAL) 10 unit 1X ONCE IV ; Start 02/21/20 at 10:45; Stop 02/21/20 at 10:52; Status DC Loperamide HCl (Imodium) 2 mg PRN Q15MIN PRN PO DIARRHEA Last administered on 03/02/20at 17:29; Start 02/21/20 at 18:45 Lorazepam (Ativan Inj) 0.5 mg 1X ONCE IVP Last administered on 02/21/20at 2 1:32; Start 02/21/20 at 21:15; Stop 02/21/20 at 21:16; Status DC Amlodipine Besylate (Norvasc) 10 mg DAILY08 PO Last administered on 03/02/20at 08:35; Start 02/23/20 at 08:00 Vitamin B Complex (Folbic Tablet) 1 tab DAILY PO Last administered on 03/02/20at 08:35; Start 02/23/20 at 09:00 Heparin Sodium (Porcine) (Heparin Sodium) 5,000 unit Q8HRS SQ Last administered on 03/04/20at 05:00; Start 02/22/20 at 22:00 Acetaminophen (Tylenol) 650 mg PRN Q4HRS PRN PO MILD PAIN / TEMP > 100.3'F Last administered on 03/04/20at 05:00; Start 02/22/20 at 20:45 Amino Acids/ Glycerin/ Electrolytes 1,000 ml @ 80 mls/hr [id number] IV Last administered on 02/29/20at 03:40; Start 02/23/20 at 10:30; Stop 02/29/20 at 10:12; Status DC Vancomycin HCl 500 mg/Sodium Chloride 100 ml @ 100 mls/hr QMWF IV ; Start 02/25/20 at 16:00; Stop 02/24/20 at 11:42; Status DC Sodium Chloride 1,000 ml @ 1,000 mls/hr Q1H PRN IV hypotension; Start 02/23/20 at 11:48; Stop 02/23/20 at 17:47; Status DC Albumin Human 200 ml @ 200 mls/hr 1X PRN PRN IV Hypotension; Start 02/23/20 at 12:00; Stop 02/23/20 at 17:59; Status DC Sodium Chloride 1,000 ml @ 400 mls/hr Q2H30M PRN IV PATENCY; Start 02/23/20 at 11:48; Stop 02/23/20 at 23:47; Status DC Info (PHARMACY MONITORING -- do not chart) 1 each PRN DAILY PRN MC SEE COMMENTS; Start 02/23/20 at 12:00; Status UNV Info (PHARMACY MONITORING -- do not chart) 1 each PRN DAILY PRN MC SEE COMMENTS; Start 02/23/20 at 12:00; Stop 02/27/20 at 14:57; Status DC Darbepoetin Jono (ARANESP for DIALYSIS PTS) 60 mcg WEEKLYHS SQ Last administered on 03/01/20at 20:09; Start 02/23/20 at 21:00 Lactobacillus Rhamnosus (Culturelle) 1 cap BID PO Last administered on 03/03/20at 20:09; Start 02/23/20 at 21:00 Non-Formulary Medication 1 ea/ Sodium Chloride 210 ml @ 210 mls/hr 1X ONCE IV Last administered on 02/23/20at 20:51; Start 02/23/20 at 16:00; Stop 02/23/20 at 16:59; Status DC Non-Formulary Medication 1 ea/ Sodium Chloride 230 ml @ 460 mls/hr DAILY IV Last administered on 02/27/20at 13:56; Start 02/24/20 at 09:00; Stop 02/27/20 at 09:29; Status DC Ondansetron HCl (Zofran) 4 mg PRN Q6HRS PRN IVP NAUSEA/VOMITING Last administered on 03/03/20at 20:09; Start 02/23/20 at 18:45 Sodium Chloride 1,000 ml @ 1,000 mls/hr Q1H PRN IV hypotension; Start 02/25/20 at 13:37; Stop 02/25/20 at 19:36; Status DC Albumin Human 200 ml @ 200 mls/hr 1X PRN PRN IV Hypotension; Start 02/25/20 at 13:45; Stop 02/25/20 at 19:44; Status DC Sodium Chloride 1,000 ml @ 400 mls/hr Q2H30M PRN IV PATENCY; Start 02/25/20 at 13:37; Stop 02/26/20 at 01:36; Status DC Info (PHARMACY MONITORING -- do not chart) 1 each PRN DAILY PRN MC SEE COMMENTS; Start 02/25/20 at 13:45; Status UNV Info (PHARMACY MONITORING -- do not chart) 1 each PRN DAILY PRN MC SEE COMMENTS; Start 02/25/20 at 13:45; Stop 02/27/20 at 14:57; Status DC Lorazepam (Ativan) 1 mg 1X PRN PO ANXIETY / AGITATION Last administered on 02/26/20at 14:10; Start 02/26/20 at 14:00; Stop 02/26/20 at 14:10; Status DC Sodium Chloride 1,000 ml @ 1,000 mls/hr Q1H PRN IV hypotension; Start 02/27/20 at 07:51; Stop 02/27/20 at 13:50; Status DC Albumin Human 200 ml @ 200 mls/hr 1X PRN PRN IV Hypotension; Start 02/27/20 at 08:00; Stop 02/27/20 at 13:59; Status DC Sodium Chloride 1,000 ml @ 400 mls/hr Q2H30M PRN IV PATENCY; Start 02/27/20 at 07:51; Stop 02/27/20 at 19:50; Status DC Info (PHARMACY MONITORING -- do not chart) 1 each PRN DAILY PRN MC SEE COMMENTS; Start 02/27/20 at 08:00; Stop 03/02/20 at 15:57; Status DC Sodium Chloride 1,000 ml @ 1,000 mls/hr Q1H PRN IV hypotension; Start 03/01/20 at 11:23; Stop 03/01/20 at 17:22; Status DC Albumin Human 200 ml @ 200 mls/hr 1X PRN PRN IV Hypotension; Start 03/01/20 at 11:30; Stop 03/01/20 at 17:29; Status DC Diphenhydramine HCl (Benadryl) 25 mg 1X PRN PRN IV ITCHING; Start 03/01/20 at 11:30; Stop 03/02/20 at 11:29; Status DC Sodium Chloride 1,000 ml @ 400 mls/hr Q2H30M PRN IV PATENCY; Start 03/01/20 at 11:23; Stop 03/01/20 at 23:22; Status DC Info (PHARMACY MONITORING -- do not chart) 1 each PRN DAILY PRN MC SEE COMMENTS; Start 03/01/20 at 11:30; Stop 03/01/20 at 11:28; Status DC Info (PHARMACY MONITORING -- do not chart) 1 each PRN DAILY PRN MC SEE COMMENTS; Start 03/01/20 at 11:30; Stop 03/03/20 at 10:05; Status DC Methylprednisolone Sodium Succinate (SOLU-Medrol 40MG VIAL) 40 mg DAILY IV Last administered on 03/03/20at 14:02; Start 03/02/20 at 09:00 Sodium Chloride 1,000 ml @ 1,000 mls/hr Q1H PRN IV hypotension; Start 03/03/20 at 07:45; Stop 03/03/20 at 13:44; Status DC Albumin Human 200 ml @ 200 mls/hr 1X PRN PRN IV Hypotension; Start 03/03/20 at 07:45; Stop 03/03/20 at 13:44; Status DC Sodium Chloride 1,000 ml @ 400 mls/hr Q2H30M PRN IV PATENCY; Start 03/03/20 at 07:45; Stop 03/03/20 at 19:44; Status DC Info (PHARMACY MONITORING -- do not chart) 1 each PRN DAILY PRN MC SEE COMMENTS; Start 03/03/20 at 07:45; Status UNV Info (PHARMACY MONITORING -- do not chart) 1 each PRN DAILY PRN MC SEE COMMENTS; Start 03/03/20 at 07:45 Active Scripts Active Oxycodone Hcl Immed.release (Oxycodone Hcl) 5 Mg Tablet 1 Tab PO QID Vitamin D2 (Ergocalciferol (Vitamin D2)) 50,000 Unit Capsule 50,000 Unit PO WEEKLY Folbic Tablet (Cyanocobalamin/Fa/Pyridoxine) 1 Each Tablet 1 Tab PO DAILY Calcitriol 0.25 Mcg Capsule 0.25 Mcg PO DAILY Reported Sodium Bicarbonate 650 Mg Tablet 1,300 Mg PO BID Ferrous Sulfate 325 Mg Tablet 325 Mg PO TIDWMEALS Norvasc (Amlodipine Besylate) 10 Mg Tablet 10 Mg PO DAILY08 Vitals/I & O Vital Sign - Last 24 Hours 03/03/20 03/03/20 03/03/20 03/03/20 08:00 08:00 08:00 16:10 Temp 98.0 98.0 Pulse 73 73 Resp 20 B/P (MAP) 117/64 (81) 117/64 103/58 (73) Pulse Ox 100 O2 Delivery Nasal Cannula Nasal Cannula Nasal Cannula O2 Flow Rate 1.0 1.0 1.0 03/03/20 03/03/20 03/03/20 03/04/20 19:20 20:00 23:55 03:09 Temp 99.7 98.3 98.4 99.7 98.3 98.4 Pulse 95 82 75 Resp 18 18 20 B/P (MAP) 93/51 (65) 129/71 (90) 117/57 (77) Pulse Ox 97 97 100 O2 Delivery Nasal Cannula Nasal Cannula Nasal Cannula Nasal Cannula O2 Flow Rate 1.0 1.0 1.0 1.0 Intake and Output 03/03/20 03/03/20 03/04/20 15:00 23:00 07:00 Intake Total 320 ml Balance 320 ml Justicifation of Admission Dx: Justifications for Admission: Justification of Admission Dx: Yes Respiratory Failure: Severe Resp Distress LICO NOBLE MD Mar 04, 2020 08:01
[2020-03-04 08:15] VITALS: BP 133/72
[2020-03-04] MEDS: LACTOBACILLUS RHAMNOSUS GG 1 CAPSULE. PO SCH ×2 (08:56→21:07)
[2020-03-04] MEDS: VITAMIN B12,B9,B6 COMPLEX 1 TABLET. PO SCH (08:56)
[2020-03-04] MEDS: methylPREDNISolone SOD SUCC PF 40 MG/ML VIAL. IV SCH (08:56)
[2020-03-04] MEDS: MULTIVITAMIN with MINERAL TABLET. PO SCH (08:56)
[2020-03-04] MEDS: amLODIPine BESYLATE 10 MG TABLET PO SCH (08:56)
--- NOTE | 2020-03-04 09:23 | PDOC ---
PULMONARY PROGRESS NOTES Subjective Patient eating drinking not more short of air Vitals Vital Signs Date Time Temp Pulse Resp B/P (MAP) Pulse Ox O2 Delivery O2 Flow Rate FiO2 03/04/20 08:56 79 133/72 03/04/20 08:15 98.4 19 98 Nasal Cannula 1.0 98.4 ROS: No Nausea, No Chest Pain, No Abdominal Pain, No Increase Cough General: Alert HEENT: Other Lungs: Clear Cardiovascular: S1, S2 Abdomen: Soft Neuro Exam: Alert Extremities: No Edema Skin: Warm, No Rashes Labs Laboratory Tests Test 03/03/20 06:15 White Blood Count 10.1 x10^3/uL (4.0-11.0) Red Blood Count 2.51 x10^6/uL (3.50-5.40) Hemoglobin 7.7 g/dL (12.0-15.5) Hematocrit 24.0 % (36.0-47.0) Mean Corpuscular Volume 95 fL (79-100) Mean Corpuscular Hemoglobin 31 pg (25-35) Mean Corpuscular Hemoglobin Concent 32 g/dL (31-37) Red Cell Distribution Width 15.8 % (11.5-14.5) Platelet Count 169 x10^3/uL (140-400) Sodium Level 139 mmol/L (136-145) Potassium Level 4.5 mmol/L (3.5-5.1) Chloride Level 103 mmol/L (98-107) Carbon Dioxide Level 26 mmol/L (21-32) Anion Gap 10 (6-14) Blood Urea Nitrogen 95 mg/dL (7-20) Creatinine 4.4 mg/dL (0.6-1.0) Estimated GFR (Cockcroft-Gault) 9.9 Glucose Level 85 mg/dL (70-99) Calcium Level 8.3 mg/dL (8.5-10.1) Medications Active Scripts Medications Dose Route/Sig Max Daily Dose Days Date Category Oxycodone Hcl Immed.release (Oxycodone Hcl) 5 Mg Tablet 1 Tab PO QID 04/15/18 Rx Sodium Bicarbonate 650 Mg Tablet 1,300 Mg PO BID 06/10/17 Reported Ferrous Sulfate 325 Mg Tablet 325 Mg PO TIDWMEALS 06/10/17 Reported Vitamin D2 (Ergocalciferol (Vitamin D2)) 50,000 Unit Capsule 50,000 Unit PO WEEKLY 12/07/16 Rx Folbic Tablet (Cyanocobalamin/Fa/Pyridoxine) 1 Each Tablet 1 Tab PO DAILY 12/07/16 Rx Calcitriol 0.25 Mcg Capsule 0.25 Mcg PO DAILY 12/07/16 Rx Norvasc (Amlodipine Besylate) 10 Mg Tablet 10 Mg PO DAILY08 09/04/13 Reported Comments cta reviewed 1. There are severe bilateral infiltrates greatest of the lower lobes although variable involvement of the other lobes. 2. There is coronary calcification. 3. Main pulmonary artery dilatation suggests pulmonary hypertension. no central pe Impression . IMPRESSION: 1. Acute hypoxemic respiratory failure secondary COVID-19 viral pneumonia.. oxygenation improved 2. Abnormal chest x-ray. 3. Febrile illness. 4. Pancytopenia. 5. Acute diastolic congestive heart failure. 6. End-stage renal disease, on hemodialysis. 7. SARS-CoV-[address] chest Impression: 1. There are severe bilateral infiltrates greatest of the lower lobes although variable involvement of the other lobes. 2. There is coronary calcification. 3. Main pulmonary artery dilatation suggests pulmonary hypertension. Plan . Much improved, transferred-itis ICU, PT OT, possible discharge next 24 to 48 hours Oxygen supplementation Hemodialysis per nephro cont Steroids, will decrease Antibiotics per ID Follow cultures s/p Remdisivir 02/22, DVT GI prophylaxis discussed w LYRIC Sofia MD Mar 04, 2020 09:23
--- NOTE | 2020-03-04 12:05 | PDOC ---
Renal-Progress Notes Subjective Notes Notes FEELS WELL History of Present Illness Hx of present illness STABLE Vitals Vitals Vital Signs Date Time Temp Pulse Resp B/P (MAP) Pulse Ox O2 Delivery O2 Flow Rate FiO2 03/04/20 08:56 79 133/72 03/04/20 08:15 98.4 19 98 Nasal Cannula 1.0 98.4 Weight Weight [ ] I.O. Intake and Output Intake and Output 03/04/20 07:00 Intake Total 320 ml Balance 320 ml Intake Oral 320 ml # Voids 1 # Bowel Movements 1 Review of Systems Constitutional: yes: weakness, alert, oriented Ears/Nose/Throat: Yes: no symptom reported Eyes: Yes: no symptom reported Cardiovascular: Yes no symptom reported Gastrointestional: Yes: constipation Genitourinary: Yes: no symptom reported Musculoskeletal: Yes: muscle stiffness Skin: Yes no symptom reported Endocrine: Yes: no symptom reported Physical Exam General Appearance: no apparent distress Skin: warm Respiratory: bilateral CTA Heart: S1S2 Abdomen: soft, bowel sounds present Genitourinary: bladder flat Neurology: alert, oriented Musculoskeletal: Osteoarthritis, Other Assessment Assessment IMP ESRD COVID POS ACUTE RESP FAILURE ANEMIA PLAN HD TOMORROW SUPPORTIVE CARE WILL FOLLOW LIONEL BRAGA MD Mar 04, 2020 12:05
--- NOTE | 2020-03-04 12:16 | PDOC ---
Infectious Disease Note Subjective: Subjective Patient transferred out of ICU yesterday States feels much better down to 1L O2 Denies F/N/V/D Denies worsening cough or shortness of breath Vital Signs: Vital Signs Vital Signs Date Time Temp Pulse Resp B/P (MAP) Pulse Ox O2 Delivery O2 Flow Rate FiO2 03/04/20 08:56 79 133/72 03/04/20 08:15 98.4 19 98 Nasal Cannula 1.0 98.4 Physical Exam: PHYSICAL EXAM GENERAL: Propped up in bed, alert and watching TV HEENT: Pupils equal, Oral cavity clear NECK: Supple, no JVD. LUNGS: + crackles bases, no accessory muscle use. HEART: S1, S2. regular ABDOMEN: Obese, soft, no guarding. + umbilical hernia. EXTREMITIES: No clubbing, cyanosis or gross edema. SCDs bilaterally SKIN: Warm to touch without signs of rash. 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 Left subclavian central line, 02/26 without signs of complications Medications: Inpatient Meds: Current Medications Medications (Trade) Dose Ordered Sig/Rebecca Start Time Stop Time Status Last Admin Dose Admin Acetaminophen (Tylenol) 650 mg PRN Q4HRS PRN 02/22/20 20:45 03/04/20 05:00 650 MG Albumin Human 200 ml @ 200 mls/hr 1X PRN PRN 03/03/20 07:45 03/03/20 13:44 DC Amino Acids/ Glycerin/ Electrolytes 1,000 ml @ 80 mls/hr [id number] 02/23/20 10:30 02/29/20 10:12 DC 02/29/20 03:40 80 MLS/HR Amlodipine Besylate (Norvasc) 10 mg DAILY08 02/23/20 08:00 03/04/20 08:56 10 MG Azithromycin 250 ml @ 250 mls/hr 1X ONCE 02/21/20 06:30 02/21/20 07:29 DC 02/21/20 06:42 250 MLS/HR Azithromycin 500 mg/Sodium Chloride 250 ml @ 250 mls/hr 1X ONCE 02/20/20 19:30 02/20/20 20:29 Cancel Cefepime HCl (Maxipime) 1 gm Q24H 02/21/20 06:15 02/26/20 11:51 DC 02/26/20 06:06 1 GM Ceftriaxone Sodium (Rocephin) 1 gm 1X ONCE 02/20/20 19:30 02/20/20 19:31 DC 02/20/20 19:37 1 GM Darbepoetin Jono (ARANESP for DIALYSIS PTS) 60 mcg WEEKLYHS 02/23/20 21:00 03/01/20 20:09 60 MCG Dextrose (Dextrose 50%-Water Syringe) 25 gm 1X ONCE 02/21/20 10:45 02/21/20 10:57 DC Diphenhydramine HCl (Benadryl) 25 mg 1X PRN PRN 03/01/20 11:30 03/02/20 11:29 DC Furosemide (Lasix) 40 mg 1X ONCE 02/20/20 21:00 02/20/20 21:01 DC 02/20/20 20:53 40 MG Heparin Sodium (Porcine) (Heparin Sodium) 5,000 unit Q8HRS 02/22/20 22:00 03/04/20 05:00 5,000 UNIT Hydralazine HCl (Apresoline Inj) 10 mg 1X ONCE 02/20/20 20:00 02/20/20 20:02 DC 02/20/20 20:39 10 MG Info (CONTRAST GIVEN -- Rx MONITORING) 1 each PRN DAILY PRN 02/20/20 20:00 02/22/20 19:59 DC Info (PHARMACY MONITORING -- do not chart) 1 each PRN DAILY PRN 03/03/20 07:45 Insulin Human Regular (HumuLIN R VIAL) 10 unit 1X ONCE 02/21/20 10:45 02/21/20 10:52 DC Iohexol (Omnipaque 350 Mg/ml) 70 ml 1X ONCE 02/20/20 20:00 02/20/20 20:01 DC 02/20/20 22:19 70 ML Lactobacillus Rhamnosus (Culturelle) 1 cap BID 02/23/20 21:00 03/04/20 08:56 1 CAP Loperamide HCl (Imodium) 2 mg PRN Q15MIN PRN 02/21/20 18:45 03/02/20 17:29 2 MG Lorazepam (Ativan Inj) 0.5 mg 1X ONCE 02/21/20 21:15 02/21/20 21:16 DC 02/21/20 21:32 0.5 MG Lorazepam (Ativan) 1 mg 1X PRN 02/26/20 14:00 02/26/20 14:10 DC 02/26/20 14:10 1 MG Methylprednisolone Sodium Succinate (SOLU-Medrol 40MG VIAL) 40 mg DAILY 03/02/20 09:00 03/04/20 08:56 40 MG Multivitamins (Thera M Plus) 1 tab DAILY 02/21/20 09:00 03/04/20 08:56 1 TAB Non-Formulary Medication 1 ea/ Sodium Chloride 230 ml @ 460 mls/hr DAILY 02/24/20 09:00 02/27/20 09:29 DC 02/27/20 13:56 460 MLS/HR Norepinephrine Bitartrate 8 mg/ Dextrose 258 ml @ 13.719 mls/ hr 1X ONCE 02/20/20 23:45 02/21/20 18:33 DC 02/20/20 23:45 13.1 MLS/HR Ondansetron HCl (Zofran) 4 mg PRN Q6HRS PRN 02/23/20 18:45 03/03/20 20:09 4 MG Sodium Chloride 1,000 ml @ 400 mls/hr Q2H30M PRN 03/03/20 07:45 03/03/20 19:44 DC Vancomycin HCl (Vanco Per Pharmacy) 1 each PRN DAILY PRN 02/21/20 06:15 02/24/20 11:42 DC 02/24/20 11:27 1 EACH Vancomycin HCl (Vancomycin Random Level) 1 each 1X ONCE 02/23/20 05:00 02/23/20 05:01 DC 02/23/20 05:00 1 EACH Vancomycin HCl 1.5 gm/Sodium Chloride 500 ml @ 250 mls/hr 1X ONCE 02/21/20 06:30 02/21/20 08:30 DC 02/21/20 13:23 250 MLS/HR Vancomycin HCl 500 mg/Sodium Chloride 100 ml @ 100 mls/hr QMWF 02/25/20 16:00 02/24/20 11:42 DC Vitamin B Complex (Folbic Tablet) 1 tab DAILY 02/23/20 09:00 03/04/20 08:56 1 TAB Objective: Assessment: COVID-19 viral infection, (02/19) s/p Remdisivir Fever - better Pancytopenia.,now leucocytosis likely from steroids PENICILLIN ALLERGY. Acute hypoxic respiratory failure, off BiPAP; Congestive heart failure. Plan: Plan of Care Continue supportive care off antibiotics Steroids per pulmonary Airborne isolation D/w nursing TAMEKA MONTANO MD Mar 04, 2020 12:16
[2020-03-04 12:22] VITALS: BP 148/58
--- NOTE | 2020-03-04 15:28 | PDOC ---
PULMONARY PROGRESS NOTES Subjective Patient eating drinking not more short of air Vitals Vital Signs Date Time Temp Pulse Resp B/P (MAP) Pulse Ox O2 Delivery O2 Flow Rate FiO2 03/04/20 12:22 98.7 93 18 148/58 (88) 79 Nasal Cannula 1.0 98.7 ROS: No Nausea, No Chest Pain, No Abdominal Pain, No Increase Cough General: Alert HEENT: Other Lungs: Clear Cardiovascular: S1, S2 Abdomen: Soft Neuro Exam: Alert Extremities: No Edema Skin: Warm, No Rashes Labs Laboratory Tests Test 03/03/20 06:15 03/04/20 12:50 White Blood Count 10.1 x10^3/uL (4.0-11.0) Red Blood Count 2.51 x10^6/uL (3.50-5.40) Hemoglobin 7.7 g/dL (12.0-15.5) Hematocrit 24.0 % (36.0-47.0) Mean Corpuscular Volume 95 fL (79-100) Mean Corpuscular Hemoglobin 31 pg (25-35) Mean Corpuscular Hemoglobin Concent 32 g/dL (31-37) Red Cell Distribution Width 15.8 % (11.5-14.5) Platelet Count 169 x10^3/uL (140-400) Sodium Level 139 mmol/L (136-145) Potassium Level 4.5 mmol/L (3.5-5.1) Chloride Level 103 mmol/L (98-107) Carbon Dioxide Level 26 mmol/L (21-32) Anion Gap 10 (6-14) Blood Urea Nitrogen 95 mg/dL (7-20) Creatinine 4.4 mg/dL (0.6-1.0) Estimated GFR (Cockcroft-Gault) 9.9 Glucose Level 85 mg/dL (70-99) Calcium Level 8.3 mg/dL (8.5-10.1) SARS-CoV-2 Antigen (Rapid) Negative (NEGATIVE) Laboratory Tests Test 03/04/20 12:50 SARS-CoV-2 Antigen (Rapid) Negative (NEGATIVE) Medications Active Scripts Medications Dose Route/Sig Max Daily Dose Days Date Category Oxycodone Hcl Immed.release (Oxycodone Hcl) 5 Mg Tablet 1 Tab PO QID 04/15/18 Rx Sodium Bicarbonate 650 Mg Tablet 1,300 Mg PO BID 06/10/17 Reported Ferrous Sulfate 325 Mg Tablet 325 Mg PO TIDWMEALS 06/10/17 Reported Vitamin D2 (Ergocalciferol (Vitamin D2)) 50,000 Unit Capsule 50,000 Unit PO WEEKLY 12/07/16 Rx Folbic Tablet (Cyanocobalamin/Fa/Pyridoxine) 1 Each Tablet 1 Tab PO DAILY 12/07/16 Rx Calcitriol 0.25 Mcg Capsule 0.25 Mcg PO DAILY 12/07/16 Rx Norvasc (Amlodipine Besylate) 10 Mg Tablet 10 Mg PO DAILY08 09/04/13 Reported Comments cta reviewed 1. There are severe bilateral infiltrates greatest of the lower lobes although variable involvement of the other lobes. 2. There is coronary calcification. 3. Main pulmonary artery dilatation suggests pulmonary hypertension. no central pe Impression . IMPRESSION: 1. Acute hypoxemic respiratory failure secondary COVID-19 viral pneumonia.. oxygenation improved 2. Abnormal chest x-ray. 3. Febrile illness. 4. Pancytopenia. 5. Acute diastolic congestive heart failure. 6. End-stage renal disease, on hemodialysis. 7. SARS-CoV-[address] chest Impression: 1. There are severe bilateral infiltrates greatest of the lower lobes although variable involvement of the other lobes. 2. There is coronary calcification. 3. Main pulmonary artery dilatation suggests pulmonary hypertension. Plan . Patient much improved okay to discharge off of antibiotics Prednisone 30 mg for 5 days s/p Remdisivir 02/22, LYRIC SMART MD Mar 04, 2020 15:28
[2020-03-04 16:12] VITALS: BP 115/60
[2020-03-04] MEDS ORDERED: OXYC5TAB4 PO (16:40)
[2020-03-04] MEDS ORDERED: PRED20TA PO (16:40)
--- NOTE | 2020-03-04 16:43 | SNU/HH DC ---
DISCHARGE ORDERS DISCHARGE INFORMATION: DISCHARGE DATE: Mar 04, 2020 FINAL DIAGNOSIS COVID 19 pneumonia CONDITION ON DISCHARGE: Stable CODE STATUS: Code Status: Full RETIREMENT: SNF STAY <30 DAYS: Yes POST DISCHARGE ORDERS: ACTIVITY ORDERS: Activity as tolerated WEIGHT BEARING STATUS: As tolerated DIET AFTER DISCHARGE: Renal WOUND/INCISION CARE: Keep wound/cast CDI CHECKS AFTER DISCHARGE: CHECKS AFTER DISCHARGE: Check blood press - daily, Check your Temp as needed, Weigh Yourself Daily FOLLOW-UP: ADDITIONAL FOLLOW-UP: Dialysis MWF TREATMENT/EQUIPMENT ORDERS: ADAPTIVE EQUIPMENT NEEDED: Walker INFUSION EQUIPMENT NEEDED: AV shunt RESPIRATORY EQUIPMENT NEEDED: Oxygen Physical Therapy For: Evalulation/Treatment Occupational Therapy For: Evaluation/Treatment DISCHARGE MEDICATIONS: Home Meds Active Scripts Prednisone (PREDNISONE) 20 Mg Tablet, 1 TAB PO DAILY for COVID 19 recovery for 5 Days, #5 TAB Prov:LICO NOBLE MD 03/04/20 Oxycodone Hcl (OXYCODONE HCL IMMED.RELEASE ) 5 Mg Tablet, 1 TAB PO PRN BID PRN for SEVERE PAIN 7-10 for 6 Days, #12 TAB Prov:LICO NOBLE MD 03/04/20 Ergocalciferol (Vitamin D2) (VITAMIN D2) 50,000 Unit Capsule, 70336 UNIT PO WEEKLY, #14 TAB 0 Refills Prov:LEONIDAS BARRETT MD 12/07/16 Cyanocobalamin/Fa/Pyridoxine (FOLBIC TABLET) 1 Each Tablet, 1 TAB PO DAILY, #30 TAB 0 Refills Prov:LEONIDAS BARRETT MD 12/07/16 Calcitriol (CALCITRIOL) 0.25 Mcg Capsule, 0.25 MCG PO DAILY, #30 TAB 0 Refills Prov:LEONIDAS BARRETT MD 12/07/16 Reported Medications Sodium Bicarbonate (SODIUM BICARBONATE) 650 Mg Tablet, 1300 MG PO BID, TAB 06/10/17 Ferrous Sulfate (FERROUS SULFATE) 325 Mg Tablet, 325 MG PO TIDWMEALS, TAB 06/10/17 Amlodipine Besylate (NORVASC) 10 Mg Tablet, 10 MG PO DAILY08 09/04/13 LICO NOBLE MD Mar 04, 2020 16:43
--- NOTE | 2020-03-04 16:46 | PDOC3 ---
Discharge Summary Visit Information Date of Admission: Feb 20, 2020 Date of Discharge: Mar 04, 2020 Admitting Diagnosis: Hypoxic respiratory failure Final Diagnosis COVID 19 with pneumonia Brief Hospital Course Allergies Allergies Coded Allergies Type Severity Reaction Last Updated Verified Penicillins Allergy Intermediate rash 02/20/20 Yes Vital Signs Vital Signs Date Time Temp Pulse Resp B/P (MAP) Pulse Ox O2 Delivery O2 Flow Rate FiO2 03/04/20 16:12 98.0 96 12 115/60 (78) 96 Nasal Cannula 1.0 98.0 Lab Results Laboratory Tests Test 03/03/20 06:15 03/04/20 12:50 White Blood Count 10.1 x10^3/uL (4.0-11.0) Red Blood Count 2.51 x10^6/uL (3.50-5.40) Hemoglobin 7.7 g/dL (12.0-15.5) Hematocrit 24.0 % (36.0-47.0) Mean Corpuscular Volume 95 fL (79-100) Mean Corpuscular Hemoglobin 31 pg (25-35) Mean Corpuscular Hemoglobin Concent 32 g/dL (31-37) Red Cell Distribution Width 15.8 % (11.5-14.5) Platelet Count 169 x10^3/uL (140-400) Sodium Level 139 mmol/L (136-145) Potassium Level 4.5 mmol/L (3.5-5.1) Chloride Level 103 mmol/L (98-107) Carbon Dioxide Level 26 mmol/L (21-32) Anion Gap 10 (6-14) Blood Urea Nitrogen 95 mg/dL (7-20) Creatinine 4.4 mg/dL (0.6-1.0) Estimated GFR (Cockcroft-Gault) 9.9 Glucose Level 85 mg/dL (70-99) Calcium Level 8.3 mg/dL (8.5-10.1) SARS-CoV-2 Antigen (Rapid) Negative (NEGATIVE) Laboratory Tests Test 03/04/20 12:50 SARS-CoV-2 Antigen (Rapid) Negative (NEGATIVE) Brief Hospital Course Ms Murillo is a 69yo F ESRD on HD, anemia who presented to [facility] on 02/19 with complaints of shortness of air, feeling chills while at dialysis. Noted in ED with a temperature of 103.2. On arrival, she had a white count of 2.8. CXR with bilateral infiltrates, some rounded areas of density, possible metastatic or nodules in the lungs. Subsequently, underwent a CT angiography of her chest showed there were several bilateral infiltrates, greatest in the lower lobes, although variable involvement of the other lobes and she had pulmonary hypertension. 02/20: ABG 7./59/64, and she had been placed on BiPAP and was given doses of azithromycin and Rocephin as well as steroids. Currently, she is lying in bed. She is feeling more comfortable. She is on BiPAP. She has had a dry cough and a little bit of diarrhea. 02/21: Repeat ABG 02/12/51/ after hours on BIPAP 18/8 with FIO2 40%. Significant for albumin 3.1 BUN 10 CR 2.3 BNP 11927 WBC 2.8, Hb 9.8, platelets 61 lactate 1.3 troponin 0.113. Overall, speaking through BiPAP mask she states she feels better. Asking for food. 02/22: Afebrile. Overnight required BIPAP. Seen on O2 5L now. Still leukopenic. More comfortable. COVID 19 positive 02/23: S/p initiation of remdesivir. 03/01: Still in COVID ICU 03/02: She is still in the COVID-19 ICU 03/03: Patient seen and examined in the dialysis unit Transferred to general medical floor. On 1L NCO2, feels much better. It [birth year] birthday today. Still on IV steroids, plan to change to PO dosing. Plan for discharge to [facility]. Repeat COVID 19 antigen testing is nega tive after 13 days. Consults: ID, Pulm, Nephrology Problem list: Sepsis - concern for bilateral pneumonia likely gram negative given dialysis status + COVID 19 COVID-19SARS COV2+ Panycytopenia Acute hypoxic resp failure - off Bipap, on 2L CKD onHD on MWF Acute CHF Elevated troponin HTN urgency Severe protein calorie malnutrition Greater than 30 minutes spent on d/c Discharge Information Condition at Discharge: Improved Follow Up: Weeks Disposition/Orders: D/C to Another Facility Scheduled Amlodipine Besylate (Norvasc) 10 Mg Tablet, 10 MG PO DAILY08, (Reported) Entered as Reported by: DRU RIVERA on 09/04/13 1000 Last Action: Continued on 02/22/20 1513 by LICO NOBLE MD Calcitriol (Calcitriol) 0.25 Mcg Capsule, 0.25 MCG PO DAILY, #30 Ref 0 Prescribed by: LEONIDAS BARRETT MD on 12/07/16 1218 Cyanocobalamin/Fa/Pyridoxine (Folbic Tablet) 1 Each Tablet, 1 TAB PO DAILY, #30 Ref 0 Prescribed by: LEONIDAS BARRETT MD on 12/07/16 1218 Last Action: Continued on 02/22/201512 by LICO NOBLE MD Ergocalciferol (Vitamin D2) (Vitamin D2) 50,000 Unit Capsule, 50,000 UNIT PO WEEKLY, #14 Ref 0 Prescribed by: LEONIDAS BARRETT MD on 12/07/16 1218 Ferrous Sulfate (Ferrous Sulfate) 325 Mg Tablet, 325 MG PO TIDWMEALS, (Reported) Entered as Reported by: EMELY RODRÍGUEZ on 06/10/17 1102 Prednisone (Prednisone) 20 Mg Tablet, 1 TAB PO DAILY for COVID 19 recovery for 5 Days, #5 Prescribed by: LICO NOBLE MD on 03/04/20 1640 Sodium Bicarbonate (Sodium Bicarbonate) 650 Mg Tablet, 1,300 MG PO BID, (Reported) Entered as Reported by: EMELY RODRÍGUEZ on 06/10/17 1102 Scheduled PRN Oxycodone Hcl (Oxycodone Hcl Immed.release ) 5 Mg Tablet, 1 TAB PO PRN BID PRN for SEVERE PAIN 7-10 for 6 Days, #12 Prescribed by: LICO NOBLE MD on 03/04/20 1640 Justicifation of Admission Dx: Justifications for Admission: Justification of Admission Dx: Yes Respiratory Failure: Severe Resp Distress LICO NOBLE MD Mar 04, 2020 16:46
--- NOTE | 2020-03-04 17:13 | NUR ---
SW following. Spoke with RN and reviewed chart. Discharge plan remains to acute rehab pending insurance authorization. Spoke with Lucas at [facility] today x2 and faxed updates. Lucas requesting another COVID test which was ordered and came back negative today. Lucas also requested HEP panel as the one from the dialysis clinic is from 2019 and this was also ordered. ALLISON to continue following.
[2020-03-04 19:00] VITALS: BP 151/67
[2020-03-04 22:59] VITALS: BP 140/72
[2020-03-05 03:57] VITALS: BP 121/58
[2020-03-05] MEDS: HEPARIN for SUB-Q USE 5,000 UNIT/ML VIAL. SQ SCH ×2 (06:01→14:00)
[2020-03-05 08:00] VITALS: BP 142/72
--- NOTE | 2020-03-05 08:15 | PDOC ---
PROGRESS NOTES Chief Complaint Chief Complaint A/P: Sepsis - concern for bilateral pneumonia likely gram negative given dialysis status + COVID 19 COVID-19SARS COV2+ Panycytopenia Acute hypoxic resp failure - on Bipap CKD onHD Acute CHF Elevated troponin HTN urgency Severe protein calorie malnutrition History of Present Illness History of Present Illness Ms Murillo is a 69yo F ESRD on HD, anemia who presented to [facility] on 02/19 with complaints of shortness of air, feeling chills while at dialysis. Noted in ED with a temperature of 103.2. On arrival, she had a white count of 2.8. CXR with bilateral infiltrates, some rounded areas of density, possible metastatic or nodules in the lungs. Subsequently, underwent a CT angiography of her chest showed there were several bilateral infiltrates, greatest in the lower lobes, although variable involvement of the other lobes and she had pulmonary hypertension. 02/20: ABG 7./59/64, and she had been placed on BiPAP and was given doses of azithromycin and Rocephin as well as steroids. Currently, she is lying in bed. She is feeling more comfortable. She is on BiPAP. She has had a dry cough and a little bit of diarrhea. 02/21: Repeat ABG //51/63 after hours on BIPAP 18/8 with FIO2 40%. Significant for albumin 3.1 BUN 10 CR 2.3 BNP 59817 WBC 2.8, Hb 9.8, platelets 61 lactate 1.3 troponin 0.113. Overall, speaking through BiPAP mask she states she feels better. Asking for food. 02/22: Afebrile. Overnight required BIPAP. Seen on O2 5L now. Still leukopenic. More comfortable. COVID 19 positive 02/23: S/p initiation of remdesivir. 03/01: Still in COVID ICU 03/02: She is still in the COVID-19 ICU 03/03: Patient seen and examined in the dialysis unit 03/04: Transferred to general medical floor. On 1L NCO2, feels much better. It is her birthday today. Still on IV steroids, plan to decrease dosing. Plan for discharge to [facility]. Afebrile. Seen on dialysis. On PO meds. Blood counts improved. Plan for skilled discharge as she has been stable but is having difficulty with ambulation and self care. Vitals Vitals Vital Signs Date Time Temp Pulse Resp B/P (MAP) Pulse Ox O2 Delivery O2 Flow Rate FiO2 03/05/20 03:57 98.4 83 18 121/58 (79) 99 Nasal Cannula 1.0 98.4 Physical Exam Physical Exam GENERAL: Propped up in bed, alert and watching TV HEENT: Pupils equal, Oral cavity clear NECK: Supple, no JVD. LUNGS: + crackles bases, no accessory muscle use. HEART: S1, S2. regular ABDOMEN: Obese, soft, no guarding. + umbilical hernia. EXTREMITIES: No clubbing, cyanosis or gross edema. SCDs bilaterally SKIN: Warm to touch without signs of rash. WAXER: Alert, answers questions appropriately Left subclavian central line, 02/26 without signs of complications General: Alert, Cooperative, moderate distress Heart: Regular rate, Normal S1, Normal S2 Lungs: Clear Abdomen: Normal bowel sounds, Soft Extremities: No clubbing, No cyanosis Skin: No rashes, No breakdown Labs LABS Laboratory Tests Test 03/04/20 12:50 SARS-CoV-2 Antigen (Rapid) Negative (NEGATIVE) Comment Review of Relevant I have reviewed the following items yoel (where applicable) has been applied. Labs Laboratory Tests Test 03/04/20 12:50 SARS-CoV-2 Antigen (Rapid) Negative (NEGATIVE) Laboratory Tests Test 03/04/20 12:50 SARS-CoV-2 Antigen (Rapid) Negative (NEGATIVE) Medications Current Medications Ceftriaxone Sodium (Rocephin) 1 gm 1X ONCE IVP Last administered on 02/20/20at 19:37; Start 02/20/20 at 19:30; Stop 02/20/20 at 19:31; Status DC Azithromycin 500 mg/Sodium Chloride 250 ml @ 250 mls/hr 1X ONCE IV ; Start 02/20/20 at 19:30; Stop 02/20/20 at 20:29; Status Cancel Acetaminophen (Tylenol) 1,000 mg 1X ONCE PO Last administered on 02/20/20at 19:37; Start 02/20/20 at 19:30; Stop 02/20/20 at 19:31; Status DC Azithromycin 250 ml @ 250 mls/hr 1X ONCE IV Last administered on 02/20/20at 19:37; Start 02/20/20 at 19:30; Stop 02/20/20 at 20:29; Status DC Ondansetron HCl (Zofran) 4 mg PRN Q8HRS PRN IV NAUSEA/VOMITING; Start 02/20/20 at 19:30; Stop 02/21/20 at 19:29; Status DC Iohexol (Omnipaque 350 Mg/ml) 70 ml 1X ONCE IV Last administered on 02/20/20at 22:19; Start 02/20/20 at 20:00; Stop 02/20/20 at 20:01; Status DC Info (CONTRAST GIVEN -- Rx MONITORING) 1 each PRN DAILY PRN MC SEE COMMENTS; Start 02/20/20 at 20:00; Stop 02/22/20 at 19:59; Status DC Hydralazine HCl (Apresoline Inj) 10 mg 1X ONCE IVP Last administered on 02/20/20at 20:39; Start 02/20/20 at 20:00; Stop 02/20/20 at 20:02; Status DC Multivitamins (Thera M Plus) 1 tab DAILY PO Last administered on 03/04/20at 08:56; Start 02/21/20 at 09:00 Furosemide (Lasix) 40 mg 1X ONCE IVP Last administered on 02/20/20at 20:53; Start 02/20/20 at 21:00; Stop 02/20/20 at 21:01; Status DC Methylprednisolone Sodium Succinate (SOLU-Medrol 40MG VIAL) 40 mg STK-MED ONCE .ROUTE ; Start 02/20/20 at 20:56; Stop 02/20/20 at 20:56; Status DC Methylprednisolone Sodium Succinate (SOLU-Medrol 40MG VIAL) 40 mg Q12HR IV Last administered on 03/01/20at 08:10; Start 02/21/20 at 09:00; Stop 03/01/20 at 14:58; Status DC Methylprednisolone Sodium Succinate (SOLU-Medrol 40MG VIAL) 80 mg 1X ONCE IV L ast administered on 02/20/20at 21:07; Start 02/20/20 at 21:15; Stop 02/20/20 at 21:16; Status DC Lorazepam (Ativan Inj) 2 mg STK-MED ONCE .ROUTE ; Start 02/20/20 at 22:32; Stop 02/20/20 at 22:32; Status DC Norepinephrine Bitartrate 8 mg/ Dextrose 258 ml @ 13.719 mls/ hr 1X ONCE IV Last administered on 02/20/20at 23:45; Start 02/20/20 at 23:45; Stop 02/21/20 at 18:33; Status DC Lorazepam (Ativan Inj) 1 mg 1X ONCE IVP Last administered on 02/20/20at 23:45; Start 02/20/20 at 23:45; Stop 02/20/20 at 23:48; Status DC Vancomycin HCl (Vanco Per Pharmacy) 1 each PRN DAILY PRN MC SEE COMMENTS Last administered on 02/24/20at 11:27; Start 02/21/20 at 06:15; Stop 02/24/20 at 11:42; Status DC Cefepime HCl (Maxipime) 1 gm Q24H IVP Last administered on 02/26/20at 06:06; Start 02/21/20 at 06:15; Stop 02/26/20 at 11:51; Status DC Azithromycin 250 ml @ 250 mls/hr 1X ONCE IV Last administered on 02/21/20at 06:42; Start 02/21/20 at 06:30; Stop 02/21/20 at 07:29; Status DC Vancomycin HCl 1.5 gm/Sodium Chloride 500 ml @ 250 mls/hr 1X ONCE IV Last administered on 02/21/20at 13:23; Start 02/21/20 at 06:30; Stop 02/21/20 at 08:30; Status DC Vancomycin HCl (Vancomycin Random Level) 1 each 1X ONCE MC Last administered on 02/23/20at 05:00; Start 02/23/20 at 05:00; Stop 02/23/20 at 05:01; Status DC Dextrose (Dextrose 50%-Water Syringe) 25 gm 1X ONCE IV ; Start 02/21/20 at 10:45; Stop 02/21/20 at 10:57; Status DC Insulin Human Regular (HumuLIN R VIAL) 10 unit 1X ONCE IV ; Start 02/21/20 at 10:45; Stop 02/21/20 at 10:52; Status DC Loperamide HCl (Imodium) 2 mg PRN Q15MIN PRN PO DIARRHEA Last administered on 03/02/20at 17:29; Start 02/21/20 at 18:45 Lorazepam (Ativan Inj) 0.5 mg 1X ONCE IVP Last administered on 02/21/20at 21:32; Start 02/21/20 at 21:15; Stop 02/21/20 at 21:16; Status DC Amlodipine Besylate (Norvasc) 10 mg DAILY08 PO Last administered on 03/04/20at 08:56; Start 02/23/20 at 08:00 Vitamin B Complex (Folbic Tablet) 1 tab DAILY PO Last administered on 03/04/20at 08:56; Start 02/23/20 at 09:00 Heparin Sodium (Porcine) (Heparin Sodium) 5,000 unit Q8HRS SQ Last administered on 03/05/20at 06:01; Start 02/22/20 at 22:00 Acetaminophen (Tylenol) 650 mg PRN Q4HRS PRN PO MILD PAIN / TEMP > 100.3'F Last administered on 03/04/20at 05:00; Start 02/22/20 at 20:45 Amino Acids/ Glycerin/ Electrolytes 1,000 ml @ 80 mls/hr [id number] IV Last administered on 02/29/20at 03:40; Start 02/23/20 at 10:30; Stop 02/29/20 at 10:12; Status DC Vancomycin HCl 500 mg/Sodium Chloride 100 ml @ 100 mls/hr QMWF IV ; Start 02/25/20 at 16:00; Stop 02/24/20 at 11:42; Status DC Sodium Chloride 1,000 ml @ 1,000 mls/hr Q1H PRN IV hypotension; Start 02/23/20 at 11:48; Stop 02/23/20 at 17:47; Status DC Albumin Human 200 ml @ 200 mls/hr 1X PRN PRN IV Hypotension; Start 02/23/20 at 12:00; Stop 02/23/20 at 17:59; Status DC Sodium Chloride 1,000 ml @ 400 mls/hr Q2H30M PRN IV PATENCY; Start 02/23/20 at 11:48; Stop 02/23/20 at 23:47; Status DC Info (PHARMACY MONITORING -- do not chart) 1 each PRN DAILY PRN MC SEE COMMENTS; Start 02/23/20 at 12:00; Status UNV Info (PHARMACY MONITORING -- do not chart) 1 each PRN DAILY PRN MC SEE COMMENTS; Start 02/23/20 at 12:00; Stop 02/27/20 at 14:57; Status DC Darbepoetin Jono (ARANESP for DIALYSIS PTS) 60 mcg WEEKLYHS SQ Last administered on 03/01/20at 20:09; Start 02/23/20 at 21:00 Lactobacillus Rhamnosus (Culturelle) 1 cap BID PO Last administered on 03/04/20at 21:07; Start 02/23/20 at 21:00 Non-Formulary Medication 1 ea/ Sodium Chloride 210 ml @ 210 mls/hr 1X ONCE IV Last administered on 02/23/20at 20:51; Start 02/23/20 at 16:00; Stop 02/23/20 at 16:59; Status DC Non-Formulary Medication 1 ea/ Sodium Chloride 230 ml @ 460 mls/hr DAILY IV Last administered on 02/27/20at 13:56; Start 02/24/20 at 09:00; Stop 02/27/20 at 09:29; Status DC Ondansetron HCl (Zofran) 4 mg PRN Q6HRS PRN IVP NAUSEA/VOMITING Last administered on 03/03/20at 20:09; Start 02/23/20 at 18:45 Sodium Chloride 1,000 ml @ 1,000 mls/hr Q1H PRN IV hypotension; Start 02/25/20 at 13:37; Stop 02/25/20 at 19:36; Status DC Albumin Human 200 ml @ 200 mls/hr 1X PRN PRN IV Hypotension; Start 02/25/20 at 13:45; Stop 02/25/20 at 19:44; Status DC Sodium Chloride 1,000 ml @ 400 mls/hr Q2H30M PRN IV PATENCY; Start 02/25/20 at 13:37; Stop 02/26/20 at 01:36; Status DC Info (PHARMACY MONITORING -- do not chart) 1 each PRN DAILY PRN MC SEE COMMENTS; Start 02/25/20 at 13:45; Status UNV Info (PHARMACY MONITORING -- do not chart) 1 each PRN DAILY PRN MC SEE COMMENTS; Start 02/25/20 at 13:45; Stop 02/27/20 at 14:57; Status DC Lorazepam (Ativan) 1 mg 1X PRN PO ANXIETY / AGITATION Last administered on 02/26/20at 14:10; Start 02/26/20 at 14:00; Stop 02/26/20 at 14:10; Status DC Sodium Chloride 1,000 ml @ 1,000 mls/hr Q1H PRN IV hypotension; Start 02/27/20 at 07:51; Stop 02/27/20 at 13:50; Status DC Albumin Human 200 ml @ 200 mls/hr 1X PRN PRN IV Hypotension; Start 02/27/20 at 08:00; Stop 02/27/20 at 13:59; Status DC Sodium Chloride 1,000 ml @ 400 mls/hr Q2H30M PRN IV PATENCY; Start 02/27/20 at 07:51; Stop 02/27/20 at 19:50; Status DC Info (PHARMACY MONITORING -- do not chart) 1 each PRN DAILY PRN MC SEE COMMENTS; Start 02/27/20 at 08:00; Stop 03/02/20 at 15:57; Status DC Sodium Chloride 1,000 ml @ 1,000 mls/hr Q1H PRN IV hypotension; Start 03/01/20 at 11:23; Stop 03/01/20 at 17:22; Status DC Albumin Human 200 ml @ 200 mls/hr 1X PRN PRN IV Hypotension; Start 03/01/20 at 11:30; Stop 03/01/20 at 17:29; Status DC Diphenhydramine HCl (Benadryl) 25 mg 1X PRN PRN IV ITCHING; Start 03/01/20 at 11:30; Stop 03/02/20 at 11:29; Status DC Sodium Chloride 1,000 ml @ 400 mls/hr Q2H30M PRN IV PATENCY; Start 03/01/20 at 11:23; Stop 03/01/20 at 23:22; Status DC Info (PHARMACY MONITORING -- do not chart) 1 each PRN DAILY PRN MC SEE COMMENTS; Start 03/01/20 at 11:30; Stop 03/01/20 at 11:28; Status DC Info (PHARMACY MONITORING -- do not chart) 1 each PRN DAILY PRN MC SEE COMMENTS; Start 03/01/20 at 11:30; Stop 03/03/20 at 10:05; Status DC Methylprednisolone Sodium Succinate (SOLU-Medrol 40MG VIAL) 40 mg DAILY IV Last administered on 03/04/20at 08:56; Start 03/02/20 at 09:00 Sodium Chloride 1,000 ml @ 1,000 mls/hr Q1H PRN IV hypotension; Start 03/03/20 at 07:45; Stop 03/03/20 at 13:44; Status DC Albumin Human 200 ml @ 200 mls/hr 1X PRN PRN IV Hypotension; Start 03/03/20 at 07:45; Stop 03/03/20 at 13:44; Status DC Sodium Chloride 1,000 ml @ 400 mls/hr Q2H30M PRN IV PATENCY; Start 03/03/20 at 07:45; Stop 03/03/20 at 19:44; Status DC Info (PHARMACY MONITORING -- do not chart) 1 each PRN DAILY PRN MC SEE COMMENTS; Start 03/03/20 at 07:45; Status UNV Info (PHARMACY MONITORING -- do not chart) 1 each PRN DAILY PRN MC SEE COMMENTS; Start 03/03/20 at 07:45 Active Scripts Active Prednisone 20 Mg Tablet 1 Tab PO DAILY 5 Days Oxycodone Hcl Immed.release (Oxycodone Hcl) 5 Mg Tablet 1 Tab PO PRN BID PRN 6 Days Vitamin D2 (Ergocalciferol (Vitamin D2)) 50,000 Unit Capsule 50,000 Unit PO WEEKLY Folbic Tablet (Cyanocobalamin/Fa/Pyridoxine) 1 Each Tablet 1 Tab PO DAILY Calcitriol 0.25 Mcg Capsule 0.25 Mcg PO DAILY Reported Sodium Bicarbonate 650 Mg Tablet 1,300 Mg PO BID Ferrous Sulfate 325 Mg Tablet 325 Mg PO TIDWMEALS Norvasc (Amlodipine Besylate) 10 Mg Tablet 10 Mg PO DAILY08 Vitals/I & O Vital Sign - Last 24 Hours 03/04/20 03/04/20 03/04/20 03/04/20 08:15 08:56 12:22 16:12 Temp 98.4 98.7 98.0 98.4 98.7 98.0 Pulse 79 79 93 96 Resp 19 18 12 B/P (MAP) 133/72 (92) 133/72 148/58 (88) 115/60 (78) Pulse Ox 98 79 96 O2 Delivery Nasal Cannula Nasal Cannula Nasal Cannula O2 Flow Rate 1.0 1.0 1.0 03/04/20 03/04/20 03/04/20 03/05/20 19:00 21:15 22:59 00:26 Temp 98.7 98.4 98.7 98.4 Pulse 100 98 Resp 18 18 B/P (MAP) 151/67 (95) 140/72 (94) Pulse Ox 96 96 O2 Delivery Nasal Cannula Nasal Cannula Nasal Cannula Nasal Cannula O2 Flow Rate 1.0 1.0 1.0 1.0 03/05/20 03:57 Temp 98.4 98.4 Pulse 83 Resp 18 B/P (MAP) 121/58 (79) Pulse Ox 99 O2 Delivery Nasal Cannula O2 Flow Rate 1.0 Intake and Output 03/04/20 03/04/20 03/05/20 15:00 23:00 07:00 Intake Total 460 ml 0 ml Output Total 0 ml Balance 460 ml 0 ml Justicifation of Admission Dx: Justifications for Admission: Justification of Admission Dx: Yes Respiratory Failure: Severe Resp Distress LICO NOBLE MD Mar 05, 2020 08:15
[2020-03-05] MEDS: VITAMIN B12,B9,B6 COMPLEX 1 TABLET. PO SCH (08:37)
[2020-03-05] MEDS: MULTIVITAMIN with MINERAL TABLET. PO SCH (08:37)
[2020-03-05] MEDS: LACTOBACILLUS RHAMNOSUS GG 1 CAPSULE. PO SCH (08:38)
[2020-03-05] MEDS: amLODIPine BESYLATE 10 MG TABLET PO SCH (08:38)
[2020-03-05] MEDS ORDERED: predniSONE 20 MG TABLET PO SCH (09:00)
[2020-03-05] MEDS ORDERED: IV NORMAL SALINE 1000ML BAG 1,000 ML IV PRN ×2 (10:51)
[2020-03-05] MEDS ORDERED: DIALYSIS PATIENT. MC PRN ×2 (11:00)
[2020-03-05] MEDS ORDERED: ALBUMIN HUMAN 25% 200 ML IV PRN (11:00)
--- NOTE | 2020-03-05 11:48 | PDOC ---
Renal-Progress Notes Subjective Notes Notes NO NEW COMPLAINTS History of Present Illness Hx of present illness STABLE Vitals Vitals Vital Signs Date Time Temp Pulse Resp B/P (MAP) Pulse Ox O2 Delivery O2 Flow Rate FiO2 03/05/20 08:38 83 121/58 03/05/20 08:00 98.3 95 Nasal Cannula 1.0 98.3 03/05/20 03:57 18 Weight Weight [ ] I.O. Intake and Output Intake and Output 03/05/20 07:00 Intake Total 460 ml Output Total 0 ml Balance 460 ml Intake Oral 460 ml Output Urine Total 0 ml # Bowel Movements 1 Labs Labs Laboratory Tests Test 03/04/20 12:50 SARS-CoV-2 Antigen (Rapid) Negative (NEGATIVE) Review of Systems Constitutional: yes: weakness, alert, oriented Ears/Nose/Throat: Yes: no symptom reported Eyes: Yes: no symptom reported Cardiovascular: Yes no symptom reported Gastrointestional: Yes: constipation Genitourinary: Yes: no symptom reported Musculoskeletal: Yes: muscle stiffness Skin: Yes no symptom reported Endocrine: Yes: no symptom reported Physical Exam General Appearance: no apparent distress Skin: warm Respiratory: bilateral CTA Heart: S1S2 Abdomen: soft, bowel sounds present Genitourinary: bladder flat Neurology: alert, oriented Musculoskeletal: Osteoarthritis, Other Assessment Assessment IMP ESRD COVID POS ACUTE RESP FAILURE ANEMIA PLAN HD TODAY UF TO [facility] START BINDERS SUPPORTIVE CARE WILL FOLLOW LIONEL BRAGA MD Mar 05, 2020 11:48
[2020-03-05 12:00] VITALS: BP 131/60
[2020-03-05] MEDS ORDERED: CALCIUM ACETATE 667 MG CAPSULE PO SCH (12:00)
--- NOTE | 2020-03-05 12:03 | PDOC ---
Infectious Disease Note Subjective: Subjective Patient feels much better Remains on 1L O2 Denies F/N/V/D Denies worsening cough or shortness of breath Vital Signs: Vital Signs Vital Signs Date Time Temp Pulse Resp B/P (MAP) Pulse Ox O2 Delivery O2 Flow Rate FiO2 03/05/20 08:38 83 121/58 03/05/20 08:00 98.3 95 Nasal Cannula 1.0 98.3 03/05/20 03:57 18 Physical Exam: PHYSICAL EXAM GENERAL: Propped up in bed, alert and watching TV HEENT: Pupils equal, Oral cavity clear NECK: Supple, no JVD. LUNGS: + crackles bases, no accessory muscle use. HEART: S1, S2. regular ABDOMEN: Obese, soft, no guarding. + umbilical hernia. EXTREMITIES: No clubbing, cyanosis or gross edema. SCDs bilaterally SKIN: Warm to touch without signs of rash. CHIP WASHER: Alert, answers questions appropriately Left subclavian central line, 02/26 without signs of complications Medications: Inpatient Meds: Current Medications Medications (Trade) Dose Ordered Sig/Rebecca Start Time Stop Time Status Last Admin Dose Admin Acetaminophen (Tylenol) 650 mg PRN Q4HRS PRN 02/22/20 20:45 03/04/20 05:00 650 MG Albumin Human 200 ml @ 200 mls/hr 1X PRN PRN 03/05/20 11:00 03/05/20 16:59 Amino Acids/ Glycerin/ Electrolytes 1,000 ml @ 80 mls/hr [id number] 02/23/20 10:30 02/29/20 10:12 DC 02/29/20 03:40 80 MLS/HR Amlodipine Besylate (Norvasc) 10 mg DAILY08 02/23/20 08:00 03/05/20 08:38 10 MG Azithromycin 250 ml @ 250 mls/hr 1X ONCE 02/21/20 06:30 02/21/20 07:29 DC 02/21/20 06:42 250 MLS/HR Azithromycin 500 mg/Sodium Chloride 250 ml @ 250 mls/hr 1X ONCE 02/20/20 19:30 02/20/20 20:29 Cancel Calcium Acetate (Phoslo) 1,334 mg TIDWMEALS 03/05/20 12:00 Cefepime HCl (Maxipime) 1 gm Q24H 02/21/20 06:15 02/26/20 11:51 DC 02/26/20 06:06 1 GM Ceftriaxone Sodium (Rocephin) 1 gm 1X ONCE 02/20/20 19:30 02/20/20 19:31 DC 02/20/20 19:37 1 GM Darbepoetin Jono (ARANESP for DIALYSIS PTS) 60 mcg WEEKLYHS 02/23/20 21:00 03/01/20 20:09 60 MCG Dextrose (Dextrose 50%-Water Syringe) 25 gm 1X ONCE 02/21/20 10:45 02/21/20 10:57 DC Diphenhydramine HCl (Benadryl) 25 mg 1X PRN PRN 03/01/20 11:30 03/02/20 11:29 DC Furosemide (Lasix) 40 mg 1X ONCE 02/20/20 21:00 02/20/20 21:01 DC 02/20/20 20:53 40 MG Heparin Sodium (Porcine) (Heparin Sodium) 5,000 unit Q8HRS 02/22/20 22:00 03/05/20 06:01 5,000 UNIT Hydralazine HCl (Apresoline Inj) 10 mg 1X ONCE 02/20/20 20:00 02/20/20 20:02 DC 02/20/20 20:39 10 MG Info (CONTRAST GIVEN -- Rx MONITORING) 1 each PRN DAILY PRN 02/20/20 20:00 02/22/20 19:59 DC Info (PHARMACY MONITORING -- do not chart) 1 each PRN DAILY PRN 03/05/20 11:00 Insulin Human Regular (HumuLIN R VIAL) 10 unit 1X ONCE 02/21/20 10:45 02/21/20 10:52 DC Iohexol (Omnipaque 350 Mg/ml) 70 ml 1X ONCE 02/20/20 20:00 02/20/20 20:01 DC 02/20/20 22:19 70 ML Lactobacillus Rhamnosus (Culturelle) 1 cap BID 02/23/20 21:00 03/05/20 08:38 1 CAP Loperamide HCl (Imodium) 2 mg PRN Q15MIN PRN 02/21/20 18:45 03/02/20 17:29 2 MG Lorazepam (Ativan Inj) 0.5 mg 1X ONCE 02/21/20 21:15 02/21/20 21:16 DC 02/21/20 21:32 0.5 MG Lorazepam (Ativan) 1 mg 1X PRN 02/26/20 14:00 02/26/20 14:10 DC 02/26/20 14:10 1 MG Methylprednisolone Sodium Succinate (SOLU-Medrol 40MG VIAL) 40 mg DAILY 03/02/20 09:00 03/05/20 08:16 DC 03/04/20 08:56 40 MG Multivitamins (Thera M Plus) 1 tab DAILY 02/21/20 09:00 03/05/20 08:37 1 TAB Non-Formulary Medication 1 ea/ Sodium Chloride 230 ml @ 460 mls/hr DAILY 02/24/20 09:00 02/27/20 09:29 DC 02/27/20 13:56 460 MLS/HR Norepinephrine Bitartrate 8 mg/ Dextrose 258 ml @ 13.719 mls/ hr 1X ONCE 02/20/20 23:45 02/21/20 18:33 DC 02/20/20 23:45 13.1 MLS/HR Ondansetron HCl (Zofran) 4 mg PRN Q6HRS PRN 02/23/20 18:45 03/03/20 20:09 4 MG Prednisone (Prednisone) 20 mg DAILY 03/05/20 09:00 03/05/20 08:37 20 MG Sodium Chloride 1,000 ml @ 400 mls/hr Q2H30M PRN 03/05/20 10:51 03/05/20 22:50 Vancomycin HCl (Vanco Per Pharmacy) 1 each PRN DAILY PRN 02/21/20 06:15 02/24/20 11:42 DC 02/24/20 11:27 1 EACH Vancomycin HCl (Vancomycin Random Level) 1 each 1X ONCE 02/23/20 05:00 02/23/20 05:01 DC 02/23/20 05:00 1 EACH Vancomycin HCl 1.5 gm/Sodium Chloride 500 ml @ 250 mls/hr 1X ONCE 02/21/20 06:30 02/21/20 08:30 DC 02/21/20 13:23 250 MLS/HR Vancomycin HCl 500 mg/Sodium Chloride 100 ml @ 100 mls/hr QMWF 02/25/20 16:00 02/24/20 11:42 DC Vitamin B Complex (Folbic Tablet) 1 tab DAILY 02/23/20 09:00 03/05/20 08:37 1 TAB Labs: Lab Laboratory Tests Test 03/04/20 12:50 SARS-CoV-2 Antigen (Rapid) Negative (NEGATIVE) Objective: Assessment: COVID-19 viral infection, (02/19) s/p Remdisivir Fever - better Pancytopenia.,now leucocytosis likely from steroids PENICILLIN ALLERGY. Acute hypoxic respiratory failure, off BiPAP; Congestive heart failure. Plan: Plan of Care Continue supportive care off antibiotics Steroids per pulmonary Airborne isolation Awaiting transfer to rehab D/w nursing TAMEKA MONTANO MD Mar 05, 2020 12:03
--- NOTE | 2020-03-05 12:59 | NUR ---
ALLISON following. Reviewed chart and spoke with RN. Discharge plan remains acute rehab. Pt has been accepted clinically at [facility]. ALLISON phoned and faxed updated clinicals to Lucas at [facility]. ALLISNO spoke with both Lucas and Mehreen to let them know that pt is ready for discharge pending insurance authorization. ALLISON to continue following. Addendum: 03/05/20 at 1715 by SANTIAGO COOPER Insurance authorization approved. ALLISON phoned and faxed discharge orders to Lucas at [facility], , (fax). ALLISON spoke with Mehreen at [facility] and she arranged for wc transport at 5:30pm. RN notified and she will call report. Packet ready to be sent with patient. HEP panel still pending so [facility] will need to call to get these results. No further LALISON needs at this time.
--- NOTE | 2020-03-05 17:05 | NUR ---
Pt discharged to [facility]. IV line remains intact. I spoke to Mehreen at facility and told her I had been trying to reach facility to give report and was not sucessful. She gave me direct number to nurse Karen. I called [phone] and call went to voicemail. Message left asking nurse to return my call for report. Packet of records was sent with pt.
== END 2020-03-05 17:05 | DRG 871 ==
LOC: ER 17:58 → 6 SOUTH 19:32 → 1 WEST ICU 02-21 01:31 → 6 SOUTH 03-03 10:03
PROVIDERS: ADMIT Internal Medicine; ATTEND Internal Medicine
PROC: 5A09357 Assistance with Respiratory Ventilation, Less than 24 Consecutive Hours, Continuous Positive Airway Pressure (ICD-10-PCS; 2020-02-22)
PROC: 5A09357 Assistance with Respiratory Ventilation, Less than 24 Consecutive Hours, Continuous Positive Airway Pressure (ICD-10-PCS; 2020-02-23)
PROC: 5A1D70Z Performance of Urinary Filtration, Intermittent, Less than 6 Hours Per Day (ICD-10-PCS; 2020-02-23)
PROC: 5A09357 Assistance with Respiratory Ventilation, Less than 24 Consecutive Hours, Continuous Positive Airway Pressure (ICD-10-PCS; 2020-02-24)
PROC: 5A09357 Assistance with Respiratory Ventilation, Less than 24 Consecutive Hours, Continuous Positive Airway Pressure (ICD-10-PCS; 2020-02-25)
PROC: 5A1D70Z Performance of Urinary Filtration, Intermittent, Less than 6 Hours Per Day (ICD-10-PCS; 2020-02-25)
PROC: 5A09357 Assistance with Respiratory Ventilation, Less than 24 Consecutive Hours, Continuous Positive Airway Pressure (ICD-10-PCS; 2020-02-26)
PROC: 5A09357 Assistance with Respiratory Ventilation, Less than 24 Consecutive Hours, Continuous Positive Airway Pressure (ICD-10-PCS; 2020-02-27)
PROC: 5A1D70Z Performance of Urinary Filtration, Intermittent, Less than 6 Hours Per Day (ICD-10-PCS; 2020-02-27)
PROC: 02HV33Z Insertion of Infusion Device into Superior Vena Cava, Percutaneous Approach (ICD-10-PCS; 2020-02-27)
PROC: 5A09357 Assistance with Respiratory Ventilation, Less than 24 Consecutive Hours, Continuous Positive Airway Pressure (ICD-10-PCS; 2020-02-28)
PROC: 5A09357 Assistance with Respiratory Ventilation, Less than 24 Consecutive Hours, Continuous Positive Airway Pressure (ICD-10-PCS; principal; 2020-02-29)
PROC: 5A1D70Z Performance of Urinary Filtration, Intermittent, Less than 6 Hours Per Day (ICD-10-PCS; 2020-03-01)
PROC: 5A1D70Z Performance of Urinary Filtration, Intermittent, Less than 6 Hours Per Day (ICD-10-PCS; 2020-03-03)
PROC: 5A1D70Z Performance of Urinary Filtration, Intermittent, Less than 6 Hours Per Day (ICD-10-PCS; 2020-03-05)
DX: A41.89 Other specified sepsis (principal); J96.01 Acute respiratory failure with hypoxia; E43 Unspecified severe protein-calorie malnutrition; I50.31 Acute diastolic (congestive) heart failure; J12.89 Other viral pneumonia; N18.6 End stage renal disease; U07.1 COVID-19; D61.818 Other pancytopenia; I13.2 Hypertensive heart and chronic kidney disease with heart failure and with stage 5 chronic kidney disease, or end stage renal disease; J44.0 Chronic obstructive pulmonary disease with (acute) lower respiratory infection; N39.0 Urinary tract infection, site not specified; D63.1 Anemia in chronic kidney disease; E83.42 Hypomagnesemia; E83.51 Hypocalcemia; F03.90 Unspecified dementia, unspecified severity, without behavioral disturbance, psychotic disturbance, mood disturbance, and anxiety; F41.9 Anxiety disorder, unspecified; I16.0 Hypertensive urgency; I25.10 Atherosclerotic heart disease of native coronary artery without angina pectoris; I27.20 Pulmonary hypertension, unspecified; W18.30XA Fall on same level, unspecified, initial encounter; Z78.9 Other specified health status; Z82.3 Family history of stroke; Z82.49 Family history of ischemic heart disease and other diseases of the circulatory system; Z85.42 Personal history of malignant neoplasm of other parts of uterus; Z87.440 Personal history of urinary (tract) infections; Z87.442 Personal history of urinary calculi; Z88.0 Allergy status to penicillin; Z90.49 Acquired absence of other specified parts of digestive tract; Z90.710 Acquired absence of both cervix and uterus; Z99.2 Dependence on renal dialysis; F32.9 Major depressive disorder, single episode, unspecified; K21.9 Gastro-esophageal reflux disease without esophagitis; M10.9 Gout, unspecified; M19.90 Unspecified osteoarthritis, unspecified site; Z68.23 Body mass index [BMI] 23.0-23.9, adult; Z88.2 Allergy status to sulfonamides; Z79.899 Other long term (current) drug therapy
CPT/HCPCS: 36415; 36600; 71045; 71275; 80048; 80053; 80069; 80202; 81001; 82805; 82962; 83605; 83880; 84484; 85007; 85025; 85027; 85379; 85610; 85730; 86140; 86704; 86706; 87340; 87426; 94660; 94760; 96365; 96366; 96367; 96375; J0360; J0456; J0692; J0696; J0882; J1644; J1940; J2060; J2405; J2920; J3370; J3490; J7040; J7060; J7512; Q9967; 97110-GO; 97110-GP; 97116-GP; 97535-GO; 99285-25; G0378; U0003-CS

== ENCOUNTER → 2020-06-08 | Outpatient (CLI) | payer MEDICARE, MEDICAID ==
[~2020-06-08] MED LIST changes: +AMLO-186 PO; -AMLO5TAB10 PO; +PRED20TA PO
--- NOTE | 2020-06-08 11:08 | RAD ---
EXAM: Bilateral lower extremity venous Doppler sonogram. HISTORY: Pain and swelling. TECHNIQUE: Sotelo scale and color Doppler sonographic evaluation of the bilateral lower extremity veins with spectral waveform analysis was performed. FINDINGS: There is partial nonocclusive thrombus within a right posterior tibial vein. There is normal color flow, normal compressibility and there are normal spectral waveforms in the remainder of the lower extremity veins. There is bilateral lower extremity soft tissue edema. There is a prominent right inguinal lymph node measuring 2.1 cm in long axis. This maintains a benign fatty hilum and is likely physiologic or reactive in etiology. IMPRESSION: 1. Partial nonocclusive right posterior tibial venous thrombosis. 2. No additional evidence of lower extremity venous thrombosis. 3. Bilateral lower extremity edema. Findings were communicated to the referring physician office by the plant operations vice president at 1030 hours on 06/08/2020. Electronically signed by: Patricia Blackwell MD (06/08/2020 11:05 AM) [id number]
== END ==
LOC: US 09:15
PROVIDERS: ATTEND Nurse Practitioner Gerontology
DX: I82.441 Acute embolism and thrombosis of right tibial vein (principal); R22.43 Localized swelling, mass and lump, lower limb, bilateral
CPT/HCPCS: 93970

== ENCOUNTER → 2020-06-10 | Outpatient (CLI) | payer MEDICARE, MEDICAID | LOC: SPEC 12:00 | PROVIDERS: ATTEND Obstetrics & Gynecology | DX: N89.8 Other specified noninflammatory disorders of vagina (principal) | CPT/HCPCS: Q0111 ==